=== PATIENT | female | born 1970 | race Two or more races ===

== ENCOUNTER 2020-07-08 10:33 | Outpatient (REF) | payer OTHER, SELFPAY ==
[2020-07-08 11:53] LABS: MANUAL DIFF FLAG NO
[2020-07-08 12:05] LABS: Basophils Percent Auto 0.5 % (0-2); Eosinophils Percent Auto 0.2 % (0-4); Hematocrit 38.7 % (37-47); Hemoglobin 12.7 g/dl (12.0-16.0); Imm Gran Abs Auto 0.02 X10*3/uL (0.00-0.03); Imm Gran Pct Auto 0.3 % (0.0-0.4); Lymphocytes Absolute Auto 1.9 X10*3/uL (1.2-4.9); Lymphocytes Percent Auto 31.2 % (20-40); Mean Corpuscular HGB Conc 32.8 g/dl (31.0-35.0); Mean Corpuscular Hemoglobin 28.9 pg (27.0-33.0); Mean Corpuscular Volume 88.2 fL (80-98); Mean Platelet Volume 11.5 fL (9.4-12.3); Monocytes Absolute Auto 0.5 X10*3/uL (0.1-1.2); Monocytes Percent Auto 8.7 % (2-11); Neutrophils Absolute Auto 3.6 X10*3/uL (2.0-8.3); Neutrophils Percent Auto 59.1 % (45-73); Platelet Count 285 X10*3/uL (160-400); Red Blood Count 4.39 X10*6/uL (4.20-5.50); Red Cell Distribution Width 13.3 % (11.0-16.0); White Blood Count 6.1 X10*3/uL (4.8-10.8)
[2020-07-08 12:44] LABS: Erythrocyte Sedimentation Rate 6 MM/HR (0-20)
[2020-07-08 12:54] LABS: Alanine Aminotransferase 15 U/L (0-31); Albumin Level 3.8 g/dL (3.5-5.0); Alkaline Phosphatase 56 U/L (39-117); Anion Gap 10 (12-20); Aspartate Amino Transferase 17 U/L (5-31); Bilirubin Total 0.5 mg/dL (0.0-1.0); Blood Urea Nitrogen 12 mg/dL (9-16); C Reactive Protein 0.04 mg/dL (< or = 0.50); Calcium 8.5 mg/dL (8.4-10.2); Carbon Dioxide 27 mmol/L (22-29); Chloride 108 mmol/L (96-108); Estimated Glomerular Filt Rate > 60; Glucose Random 89 mg/dL (60-115); Lipase 30 U/L (8-78); Potassium 3.9 mmol/l (3.3-5.1); Rheumatoid Factor < 15.0 IU/mL (<15.0); Sodium 141 mmol/L (135-145); Total Protein 6.1 g/dL (6.5-8.0)
[2020-07-09 22:01] LABS: Lyme Abs Screen <0.90 index
[2020-07-11 17:21] LABS: Anti Nuclear Antibody Screen POSITIVE (NEGATIVE)
== END 2020-07-08 10:34 | disposition home or self-care (01) ==
LOC: HO.LAB 10:33
PROVIDERS: PCP Internal Medicine; Visit Provider Internal Medicine
DX: M25.50 Pain in unspecified joint (principal); R10.12 Left upper quadrant pain; R76.8 Other specified abnormal immunological findings in serum; Z98.84 Bariatric surgery status
CPT/HCPCS: 36415; 80053; 83690; 85025; 85652; 86038; 86039; 86140; 86431; 86618

== ENCOUNTER 2020-07-13 16:14 | Outpatient (REF) | payer OTHER, SELFPAY ==
--- NOTE | 2020-07-13 | MM_ITS ---
EXAMINATION: MM SCREENING DIGITAL BREAST TOMOSYNTHESIS, BILATERAL CLINICAL INFORMATION: Screening. Asymptomatic. Family history breast cancer in maternal cousin. The lifetime risk of breast cancer based on the Tyrer-Cuzick Model is 9%. COMPARISON: None. Prior outside mammography currently unavailable. Radiology staff will attempt to retrieve prior outside exam to allow for comparison in an addendum report. TECHNIQUE: Digital breast tomosynthesis is performed in both the craniocaudal and mediolateral oblique views along with computer-aided detection (CAD). Synthesized 2D images are generated from the tomosynthesis. FINDINGS: There are scattered areas of fibroglandular density (ACR BI-RADS breast composition Category b). There are no significant masses, abnormal calcifications, or other abnormalities. The axilla and skin contours are unremarkable. IMPRESSION: No mammographic evidence of malignancy. ASSESSMENT: BI-RADS 1: Negative RECOMMENDATION: Routine annual mammography screening. This patient's information was entered into a reminder system with a target due date for their next mammogram.
== END 2020-07-13 16:15 | disposition home or self-care (01) ==
LOC: HO.MAMMO 16:14
PROVIDERS: Visit Provider Internal Medicine
DX: Z12.31 Encounter for screening mammogram for malignant neoplasm of breast (principal)
CPT/HCPCS: 77063; 77067; 78014

== ENCOUNTER → 2020-07-14 14:55 | Outpatient (BNVA) | payer OTHER, SELFPAY | PROVIDERS: PCP Internal Medicine; Referring Provider Internal Medicine; Visit Provider Surgery Vascular Surgery | DX: I83.11 Varicose veins of right lower extremity with inflammation (principal); I83.813 Varicose veins of bilateral lower extremities with pain; Z98.890 Other specified postprocedural states | CPT/HCPCS: 99213 ==

== ENCOUNTER 2020-12-26 12:25 | Emergency (ER) | payer OTHER, SELFPAY ==
--- NOTE | 2020-12-26 | ECG_ITS ---
Test Reason : CHEST PAIN Blood Pressure : / mmHG Vent. Rate : 061 BPM Atrial Rate : 061 BPM P-R Int : 146 ms QRS Dur : 080 ms QT Int : 382 ms P-R-T Axes : 042 023 027 degrees QTc Int : 384 ms Normal sinus rhythm with sinus arrhythmia Normal ECG No previous ECGs available Referred By: Generic ED Physician Electronically Signed By:TALON CORTES
--- NOTE | ~2020-12-26 | XR_ITS ---
EXAMINATION: XR CHEST CLINICAL INFORMATION: Chest pain COMPARISON: None TECHNIQUE: Frontal view of the chest was obtained. FINDINGS: The cardiac and mediastinal contours are normal. The lungs are clear. There is no pleural effusion or pneumothorax. There is mild curvature of the lower thoracic spine to the right. Bony structures are otherwise unremarkable. XR/XR chest 1V IMPRESSION: No evidence for acute disease in the chest.
[2020-12-26 12:58] VITALS: BP 160/82; BP 163/83; PULSE 53; RESP 14; TEMP 36.8; O2SAT 100; BMI 28.3
--- NOTE | 2020-12-26 13:20 | ED.CHESTPAIN ---
HPI - Chest Pain General Chief Complaint: Chest Pain Stated Complaint: SUDDEN CP @ WORK,CENTER OF CHEST TO BACK Time Seen by Provider: 12/26/20 12:52 Source: patient and EMS Mode of arrival: EMS Limitations: no limitations History of Present Illness HPI narrative: 50 y/o female with history of gastric bypass 3 years ago, prior DM, HLD, & HTN now off of all medications who presents to the ED with acute onset of sharp non-radiating substernal chest pain that started when she was at work about 1 hour ago. Pain was worse with deep inspiration and palpation. No nausea, vomiting, SOB, cough, fever, chills, N/V, abd pain, LE swelling. Patient was given aspirin by EMS and brought to the ER. On arrival to the ER patient's chest pain was resolved but it had moved to her back in between her shoulder blades. Reporting 6/10 pain, aching in nature. MD complaint: chest pain Onset (ago): hour(s) (1) Timing of current episode: now resolved Prior episodes: No Onset: during exertion Pain location: substernal Pain radiation: none Severity: moderate Pain scale (0-10): 6 Quality: tightness and sharp Relieving factors: rest Exacerbating factors: inspiration and palpation Treatment prior to arrival: aspirin Risk Factors Coronary artery disease risk factors: diabetes, hyperlipidemia and hypertension Thoracic aortic dissection risk factors: longstanding hypertension Related Data On Oral Contraceptives: No Home Medications Medication Instructions Recorded Confirmed albuterol sulfate 90 mcg/actuation 1 inh INHALATION QID 07/14/20 07/25/20 aerosol inhaler omeprazole 20 mg capsule,delayed 20 mg PO DAILY 07/14/20 07/25/20 release sucralfate 1 gram tablet 1 g PO QID 07/14/20 07/25/20 Allergies Allergy/AdvReac Type Severity Reaction Status Date / Time No Known Allergies Allergy Verified 07/25/20 01:33 [No Known Allergies*] Review of Systems Review of Systems: Constitutional: No Fever, No Chills ENT/Mouth: No sore throat, No Rhinorrhea, No Swallowing Difficulty Cardiovascular: + Chest Pain, No SOB, No Orthopnea, No Edema Respiratory: No Cough, No Sputum, No Wheezing, No dyspnea Gastrointestinal: No Nausea, No Vomiting, No Diarrhea, No abdominal Pain Genitourinary: No Dysuria, No Urinary Frequency, No Hematuria Musculoskeletal: No joint pain, + Myalgias Skin: No Skin Lesions, No rash Neuro: No Weakness, No Numbness, No Dizziness, No Headache Psych: + Anxiety/Panic, No Depression Heme/Lymph: No Bruising, No Lymphadenopathy Endocrine: No Polyuria, No Polydipsia PMFSH Past Medical History Medical History Abdominal pain ZHOU positive Overweight (BMI 25.0-29.9) Varicose veins of bilateral lower extremities with pain Surgical History (Updated 07/25/20 @ 01:36 by Ronny Lan MD) H/O gastric bypass (~2017) H/O tubal ligation Hx of cholecystectomy (~2014) Status post laser ablation of incompetent vein Family History Family History (Updated 07/25/20 @ 01:37 by Ronny Lan MD) Father HTN (hypertension) Diabetes mellitus Mother HTN (hypertension) Diabetes mellitus Asthma Brother No problems noted. Brother No problems noted. Brother No problems noted. Brother No problems noted. Sister No problems noted. Daughter No problems noted. Son No problems noted. Son No problems noted. Social History Social History Smoking Status: Never smoker Advance Directives: No Advance Directives Information Provided: Yes Physical Exam Vital Signs: Vital Signs: Last Vital Signs Temp 98.3 F 12/26/20 16:24 Pulse 74 12/26/20 16:24 Resp 16 12/26/20 16:24 BP 156/75 H 12/26/20 16:24 Pulse Ox 99 12/26/20 16:24 Body Mass Index 28.3 Appearance: Alert. Oriented X3. No acute distress. Eyes: Pupils equal, round and reactive to light. ENT: Pharynx normal. Neck: Normal inspection. Neck supple. CVS: Normal heart rate and rhythm. Pulses normal. Respiratory: No respiratory distress. Breath sounds normal. Abdomen: Soft and nontender. +BS x4 Back: tender in thoracic area between scapulas with muscle spasm Skin: Skin warm and dry. Normal skin color. Normal skin turgor. No rashes. Extremities: No lower extremity edema. Negative Danish's sign Neuro: Oriented X 3. No motor deficit. No sensory deficit. Course Course Course Narrative: 50 y/o female with history of prior DM, HTN, & HLD now off all medications 3 years after gastric bypass who presents with acute onset of chest pain that migrated to her middle back. Will need to rule out ACS, PE and dissection. She is hemodynamically stable with HR 60's and SBP 160's. EKG did not show any ST segment elevations. Pulses are equal. Will get lab workup including troponin, DDIMER, CXR to start. Reassuring examination with muscular tenderness and spasm in her back. Will reassess after treatment with Tylenol and Lidoderm. Reevaluation(s) Reevaluation #1: Pain is improved but remains achy in her back, now lower back. Slightly tender. Lidoderm helping. Her workup is negative so far. Will plan to repeat troponin in 3 hours given her chest pain was acute onset today. She remains chest pain free here. Reevaluation #2: Patient continues to not have any chest pain here. Motrin helped back pain. Repeat troponin pending. If remains negative she will be stable for discharge home with plans to f/u with PCP. MDM - Chest Pain Medical Records Data Attestation: I reviewed the patient's medical records. Lab Data Attestation: I reviewed the patient's lab results. Result diagrams: 12/26/20 13:32 12/26/20 13:32 Labs: Lab Results 12/26/20 12/26/20 12/26/20 Range/Units 13:31 13:31 13:32 WBC 8.1 (4.8-10.8) X10*3/uL RBC 4.21 (4.20-5.50) X10*6/uL Hgb 11.4 L (12.0-16.0) g/dl Hct 35.6 L (37-47) % MCV 84.6 (80-98) fL MCH 27.1 (27.0-33.0) pg MCHC 32.0 (31.0-35.0) g/dl RDW 15.0 (11.0-16.0) % Plt Count 268 (160-400) X10*3/uL MPV 10.3 (9.4-12.3) fL Immature Gran % (Auto) 0.1 (0.0-0.4) % Neut % (Auto) 65.8 (45-73) % Lymph % (Auto) 26.2 (20-40) % [place] % (Auto) 7.4 (2-11) % Eos % (Auto) 0.1 (0-4) % Baso % (Auto) 0.4 (0-2) % Lymph # (Auto) 2.1 (1.2-4.9) X10*3/uL [place] # (Auto) 0.6 (0.1-1.2) X10*3/uL Eos # (Auto) 0.0 (0.0-0.4) X10*3/uL Baso # (Auto) 0.0 (0.0-0.2) X10*3/uL Abs Immat Gran (auto) 0.01 (0.00-0.03) X10*3/uL Absolute Neuts (auto) 5.4 (2.0-8.3) X10*3/uL Absolute Nucleated RBC 0.000 (0.0-0.012) X10*3/uL Nucleated RBC % (auto) 0.0 (0.0-0.2) /100WBC D-Dimer NG/ML Hold Blue Top Sodium (135-145) mmol/L Potassium (3.3-5.1) mmol/L Chloride (96-108) mmol/L Carbon Dioxide (22-29) mmol/L Anion Gap (12-20) BUN (9-16) mg/dL Creatinine (0.5-1.4) mg/dL Estim Creat Clear Calc Estimated GFR Random Glucose (60-115) mg/dL Calcium (8.4-10.2) mg/dL Magnesium (1.6-2.6) mg/dL Total Bilirubin (0.0-1.0) mg/dL Direct Bilirubin (0.0-0.5) mg/dL AST (5-31) U/L ALT (0-31) U/L Alkaline Phosphatase (39-117) U/L Troponin I High Sens (<3.5-17.0) ng/L B-Natriuretic Peptide (<100) pg/mL Total Protein (6.5-8.0) g/dL Albumin (3.5-5.0) g/dL Urine Color YELLOW Urine Appearance CLEAR Urine pH 6.5 (5.0-8.0) Ur Specific [place] 1.025 (1.005-1.025) Urine Protein NEG (NEG-TRACE) MG/DL Urine Glucose (UA) NEG (NEG) MG/DL Urine Ketones NEG (NEG) MG/DL Urine Blood NEG (NEG) Urine Nitrite NEG (NEG) Ur Leukocyte Esterase TRACE H (NEG) Urine RBC 0-2 (0) /HPF Urine WBC 1-4 (0-4) /HPF Ur Squamous Epith Cells 1+ /LPF Urine Bacteria TRACE /LPF Urine Mucus TRACE /LPF Urine Test NEGATIVE (NEGATIVE) 12/26/20 12/26/20 12/26/20 Range/Units 13:32 13:32 13:32 WBC (4.8-10.8) X10*3/uL RBC (4.20-5.50) X10*6/uL Hgb (12.0-16.0) g/dl Hct (37-47) % MCV (80-98) fL MCH (27.0-33.0) pg MCHC (31.0-35.0) g/dl RDW (11.0-16.0) % Plt Count (160-400) X10*3/uL MPV (9.4-12.3) fL Immature Gran % (Auto) (0.0-0.4) % Neut % (Auto) (45-73) % Lymph % (Auto) (20-40) % [place] % (Auto) (2-11) % Eos % (Auto) (0-4) % Baso % (Auto) (0-2) % Lymph # (Auto) (1.2-4.9) X10*3/uL [place] # (Auto) (0.1-1.2) X10*3/uL Eos # (Auto) (0.0-0.4) X10*3/uL Baso # (Auto) (0.0-0.2) X10*3/uL Abs Immat Gran (auto) (0.00-0.03) X10*3/uL Absolute Neuts (auto) (2.0-8.3) X10*3/uL Absolute Nucleated RBC (0.0-0.012) X10*3/uL Nucleated RBC % (auto) (0.0-0.2) /100WBC D-Dimer < 200 NG/ML Hold Blue Top SEE NOTE Sodium 139 (135-145) mmol/L Potassium 4.3 (3.3-5.1) mmol/L Chloride 107 (96-108) mmol/L Carbon Dioxide 24 (22-29) mmol/L Anion Gap 12 (12-20) BUN 17 H (9-16) mg/dL Creatinine 0.64 (0.5-1.4) mg/dL Estim Creat Clear Calc 94.8 Estimated GFR > 60 Random Glucose 89 (60-115) mg/dL Calcium 8.6 (8.4-10.2) mg/dL Magnesium 1.9 (1.6-2.6) mg/dL Total Bilirubin 0.4 (0.0-1.0) mg/dL Direct Bilirubin 0.2 (0.0-0.5) mg/dL AST 18 (5-31) U/L ALT 11 (0-31) U/L Alkaline Phosphatase 56 (39-117) U/L Troponin I High Sens < 3.5 (<3.5-17.0) ng/L B-Natriuretic Peptide 24 (<100) pg/mL Total Protein 6.0 L (6.5-8.0) g/dL Albumin 3.6 (3.5-5.0) g/dL Urine Color Urine Appearance Urine pH (5.0-8.0) Ur Specific [place] (1.005-1.025) Urine Protein (NEG-TRACE) MG/DL Urine Glucose (UA) (NEG) MG/DL Urine Ketones (NEG) MG/DL Urine Blood (NEG) Urine Nitrite (NEG) Ur Leukocyte Esterase (NEG) Urine RBC (0) /HPF Urine WBC (0-4) /HPF Ur Squamous Epith Cells /LPF Urine Bacteria /LPF Urine Mucus /LPF Urine Test (NEGATIVE) ECG Data ECG #1: Attestation: I personally reviewed and interpreted this ECG as follows: ECG interpretation date: 12/26/20 ECG interpretation time: 13:30 Prior ECG tracings: not available for review Interpretation: normal sinus rhythm with sinus arrythmia, HR 61 bpm, normal HI interval, normal QTC, isolated T-wave inversion in lead III Scores Heart Score History: -2- highly suspicious ECG: -0- normal Age: -0- < or = 45 Risk factory: -1- 1 or 2 risk factors Troponin: -0- < or = normal limit Score: 3 Risk: 1.7% Discharge Plan Discharge Clinical Impression: Atypical chest pain Instructions: Chest Pain (ED), Thoracic Pain (ED) Additional Instructions: You lab workup today in the Emergency Department was unremarkable. It is very unlikely that your chest pain is due to any life threatening cause. Recommend following up with your doctor this week. T Take Tylenol and/or Motrin as needed for pain. No heavy lifting. Limit bending and twisting motions. Use ice and/or heat to your back as needed. If you have recurrence of chest pain or any other concerning symptom come back to the ER for further evaluation. Prescriptions: No Action sucralfate 1 gram tablet 1 g PO QID RF: 0 omeprazole 20 mg capsule,delayed release(DR/EC) 20 mg PO DAILY RF: 0 albuterol sulfate [ProAir HFA] 90 mcg/actuation HFA aerosol inhaler 1 inh inhalation QID RF: 0
[2020-12-26] MEDS: Acetaminophen 325 MG TABLET 975 MG PO (13:34)
[2020-12-26] MEDS: Lidocaine 4 % Patch ADH..PATCH 1 PATCH TRANSDERMA (13:34)
[2020-12-26 13:43] LABS: MANUAL DIFF FLAG NO
[2020-12-26 13:45] LABS: Basophils Percent Auto 0.4 % (0-2); Eosinophils Percent Auto 0.1 % (0-4); Hematocrit 35.6 % (37-47); Hemoglobin 11.4 g/dl (12.0-16.0); Imm Gran Abs Auto 0.01 X10*3/uL (0.00-0.03); Imm Gran Pct Auto 0.1 % (0.0-0.4); Lymphocytes Absolute Auto 2.1 X10*3/uL (1.2-4.9); Lymphocytes Percent Auto 26.2 % (20-40); Mean Corpuscular Hemoglobin 27.1 pg (27.0-33.0); Mean Corpuscular Volume 84.6 fL (80-98); Mean Platelet Volume 10.3 fL (9.4-12.3); Monocytes Absolute Auto 0.6 X10*3/uL (0.1-1.2); Monocytes Percent Auto 7.4 % (2-11); Neutrophils Absolute Auto 5.4 X10*3/uL (2.0-8.3); Neutrophils Percent Auto 65.8 % (45-73); Platelet Count 268 X10*3/uL (160-400); Red Blood Count 4.21 X10*6/uL (4.20-5.50); White Blood Count 8.1 X10*3/uL (4.8-10.8)
[2020-12-26 13:48] LABS: Glucose Urine UA NEG (NEG); Leukocyte Esterase Urine TRACE (NEG); Nitrite Urine NEG (NEG); PH 6.5 (5.0-8.0); Specific Gravity - Urine 1.025 (1.005-1.025); UACC Culture Trigger YES; Urine Blood NEG (NEG); Urine Ketones NEG (NEG); Urine Protein NEG (NEG-TRACE)
[2020-12-26 13:50] LABS: Appearance Urine CLEAR; Color Urine YELLOW
[2020-12-26 13:51] LABS: UPreg QC Valid YES; Urine Pregnancy NEGATIVE (NEGATIVE)
[2020-12-26 13:58] LABS: Bacteria Urine TRACE /LPF; Mucus Urine TRACE /LPF; RBC Urine 0-2 /HPF (0); Squamous Epithelial Cell Urine 1+ /LPF
[2020-12-26 14:00] LABS: D Dimer < 200 NG/ML
[2020-12-26 14:09] LABS: Alanine Aminotransferase 11 U/L (0-31); Albumin Level 3.6 g/dL (3.5-5.0); Alkaline Phosphatase 56 U/L (39-117); Anion Gap 12 (12-20); Aspartate Amino Transferase 18 U/L (5-31); Bilirubin Direct 0.2 mg/dL (0.0-0.5); Bilirubin Total 0.4 mg/dL (0.0-1.0); Blood Urea Nitrogen 17 mg/dL (9-16); Calcium 8.6 mg/dL (8.4-10.2); Carbon Dioxide 24 mmol/L (22-29); Chloride 107 mmol/L (96-108); Creatinine Clr Calc Pharmacy 94.8; Estimated Glomerular Filt Rate > 60; Glucose Random 89 mg/dL (60-115); Magnesium 1.9 mg/dL (1.6-2.6); Potassium 4.3 mmol/L (3.3-5.1); Sodium 139 mmol/L (135-145)
[2020-12-26 14:11] LABS: B Type Natriuretic Peptide 24 pg/mL (<100); Troponin-I High Sensitivity < 3.5 ng/L (<3.5-17.0)
[2020-12-26] MEDS: Ibuprofen 600 MG TABLET PO (14:56)
[2020-12-26 14:57] VITALS: BP 148/83; PULSE 60; RESP 16; O2SAT 98
[2020-12-26 16:24] VITALS: BP 156/75; PULSE 74; RESP 16; TEMP 36.8; O2SAT 99
--- NOTE | 2020-12-26 16:29 | PC.NURSE ---
Pt denies pain, to have Trop redrawn at 4:30. Aware of plan, resting comfortably
[2020-12-26 17:12] LABS: Troponin-I High Sensitivity 4.1 ng/L (<3.5-17.0)
== END 2020-12-26 19:06 | disposition home or self-care (01) ==
PROVIDERS: Physician Assistant; Emergency Provider Emergency Medicine; PCP Internal Medicine
DX: R07.89 Other chest pain (principal)
CPT/HCPCS: 36415; 71045; 80048; 80076; 81001; 81003; 81025; 83735; 83880; 84484; 85025; 85379; 87086; 87147; 93005; 99283; 99284

== ENCOUNTER 2021-01-19 15:03 | Outpatient (REF) | payer OTHER, SELFPAY ==
[2021-01-19 15:59] LABS: MANUAL DIFF FLAG NO
[2021-01-19 16:00] LABS: Glucose Urine UA NEG (NEG); Leukocyte Esterase Urine 1+ (NEG); Nitrite Urine NEG (NEG); PH 5.5 (5.0-8.0); Specific Gravity - Urine >= 1.030 (1.005-1.025); Urine Blood NEG (NEG); Urine Ketones NEG (NEG); Urine Protein NEG (NEG-TRACE)
[2021-01-19 16:01] LABS: Basophils Percent Auto 0.4 % (0-2); Eosinophils Percent Auto 0.3 % (0-4); Hematocrit 36.8 % (37-47); Hemoglobin 11.6 g/dl (12.0-16.0); Imm Gran Abs Auto 0.02 X10*3/uL (0.00-0.03); Imm Gran Pct Auto 0.3 % (0.0-0.4); Lymphocytes Absolute Auto 2.2 X10*3/uL (1.2-4.9); Lymphocytes Percent Auto 31.1 % (20-40); Mean Corpuscular HGB Conc 31.5 g/dl (31.0-35.0); Mean Corpuscular Hemoglobin 27.2 pg (27.0-33.0); Mean Corpuscular Volume 86.2 fL (80-98); Mean Platelet Volume 10.2 fL (9.4-12.3); Monocytes Absolute Auto 0.5 X10*3/uL (0.1-1.2); Monocytes Percent Auto 7.4 % (2-11); Neutrophils Absolute Auto 4.3 X10*3/uL (2.0-8.3); Neutrophils Percent Auto 60.5 % (45-73); Platelet Count 290 X10*3/uL (160-400); Red Blood Count 4.27 X10*6/uL (4.20-5.50); White Blood Count 7.1 X10*3/uL (4.8-10.8)
[2021-01-19 16:04] LABS: Appearance Urine HAZY; Color Urine YELLOW
[2021-01-19 16:09] LABS: Bacteria Urine TRACE /LPF; RBC Urine 0 /HPF (0); Squamous Epithelial Cell Urine 1+ /LPF
[2021-01-19 16:23] LABS: Alanine Aminotransferase 14 U/L (0-31); Alkaline Phosphatase 66 U/L (39-117); Anion Gap 10 (12-20); Aspartate Amino Transferase 18 U/L (5-31); Bilirubin Total 0.4 mg/dL (0.0-1.0); Blood Urea Nitrogen 18 mg/dL (9-16); C Reactive Protein 0.04 mg/dL (< or = 0.50); Calcium 9.1 mg/dL (8.4-10.2); Carbon Dioxide 27 mmol/L (22-29); Chloride 109 mmol/L (96-108); Estimated Glomerular Filt Rate > 60; Glucose Random 89 mg/dL (60-115); Potassium 4.3 mmol/L (3.3-5.1); Sodium 142 mmol/L (135-145); Total Protein 6.5 g/dL (6.5-8.0)
[2021-01-19 16:46] LABS: Thyroid Stimulating Hormone 0.86 uIU/mL (0.32-4.0)
[2021-01-19 17:30] LABS: Erythrocyte Sedimentation Rate 6 MM/HR (0-20)
[2021-01-20 13:12] LABS: Anti DNA DS Antibody <1 IU/mL; Antibody to SS-A Antigen <1.0 NEG AI (<1.0 NEG); Antibody to SS-B Antigen <1.0 NEG AI (<1.0 NEG); Scleroderma 70 Antibody <1.0 NEG AI (<1.0 NEG)
[2021-01-20 14:51] LABS: Thyroid Peroxidase Antibodies 1 IU/mL (<9)
[2021-01-21 01:12] LABS: Thyroglobulin Antibodies <1 IU/mL (< or = 1)
[2021-01-21 07:36] LABS: Complement C3 85 mg/dL (83-193)
== END 2021-01-19 15:04 | disposition home or self-care (01) ==
LOC: HO.LAB 15:03
PROVIDERS: PCP Internal Medicine; Visit Provider Student in an Organized Health Care Education/Training Program
DX: R76.8 Other specified abnormal immunological findings in serum (principal)
CPT/HCPCS: 36415; 80053; 81001; 84443; 85025; 85652; 86140; 86160; 86225; 86235; 86376; 86800; 99202

== ENCOUNTER → 2021-02-08 15:48 | Outpatient (BNVA) | payer OTHER, SELFPAY | PROVIDERS: PCP Internal Medicine; Visit Provider Student in an Organized Health Care Education/Training Program | DX: R76.8 Other specified abnormal immunological findings in serum (principal) | CPT/HCPCS: 99212 ==

== ENCOUNTER → 2021-04-20 14:53 | Outpatient (BNVA) | payer OTHER, SELFPAY | PROVIDERS: Visit Provider Surgery Vascular Surgery | DX: M79.604 Pain in right leg (principal); M79.605 Pain in left leg | CPT/HCPCS: 99212 ==

== ENCOUNTER 2021-08-02 09:00 | Emergency (ER) | payer OTHER, SELFPAY ==
[2021-08-02 09:10] VITALS: BP 138/67; BP 176/106; PULSE 60; PULSE 72; RESP 18; TEMP 37.2; O2SAT 100; BMI 25.4
--- NOTE | 2021-08-02 09:26 | ECG_ITS ---
Test Reason : ABDOMINAL PAIN Blood Pressure : / mmHG Vent. Rate : 050 BPM Atrial Rate : 050 BPM P-R Int : 152 ms QRS Dur : 084 ms QT Int : 426 ms P-R-T Axes : 050 035 032 degrees QTc Int : 388 ms Sinus bradycardia Otherwise normal ECG Heart rate has decreased Referred By: Freddy Bhakta Electronically Signed By:SHAYY VIGIL MD
--- NOTE | 2021-08-02 09:28 | ED_ITS ---
HPI - Abdominal Pain General Chief Complaint: Abdominal Pain Stated Complaint: ABD PAIN SINCE THIS AM Time Seen by Provider: 08/02/21 09:26 Source: patient and EMS Mode of arrival: EMS Limitations: no limitations History of Present Illness HPI narrative: 51-year-old female came in for evaluation of epigastric pain and vomiting. Started this morning at 06:00 while patient getting ready to go to work, pain felt like a burning/sharp to the epigastric area, localized to the epigastric area, no radiation, pain is constant since morning after she vomited, started after she drink coffee, did not try food yet, nothing to relieve the pain, patient gets that pain sporadically every now and then. Patient with past history of sleeve gastrectomy and cholecystectomy. No dysuria, no frequency urination, no fever, chills. Related Data Previous Rx's Medication Instructions Recorded albuterol sulfate 90 mcg/actuation 1 inh INHALATION QID PRN 30 Days 02/07/21 aerosol inhaler (ProAir HFA) #8.5 g omeprazole 20 mg capsule,delayed 20 mg PO DAILY 90 Days #90 cap 02/07/21 release cefuroxime axetil 500 mg tablet 500 mg PO BID #14 tab 08/02/21 omeprazole magnesium 20 mg 20 mg PO BID #60 tab 08/02/21 tablet,delayed release (Prilosec OTC) Allergies Allergy/AdvReac Type Severity Reaction Status Date / Time No Known Allergies Allergy Verified 04/20/21 14:57 [No Known Allergies*] Review of Systems Review of Systems All other systems are reviewed and are negative Constitutional: Reports as per HPI and Reports no additional constitutional complaints Eyes: Reports as per HPI and Reports no additional eye complaints Reports system reviewed and no additional complaints, except as documented Cardiovascular: Reports as per HPI and Reports no additional cardiovascular complaints Respiratory: Reports as per HPI and Reports no additional respiratory complaints Gastrointestinal: Reports as per HPI and Reports no additional gastrointestinal complaints Genitourinary: Reports no additional female genitourinary complaints Musculoskeletal: Reports no additional musculoskeletal complaints Skin/Breast: Reports system reviewed and no additional complaints, except as docu Psychiatric: Reports no additional psychiatric complaints Endocrine: Reports no additional endocrine complaints Hematologic/Lymphatic: Reports no additional hematologic/lymphatic complaints Allergic/Immunologic: Reports no additional allergic/immunologic complaints Reports system reviewed and no additional complaints, except as documented and Reports Abnormal speech present. Physical Exam Vital Signs: Vital Signs: Last Vital Signs Temp 98.9 F 08/02/21 09:10 Pulse 54 08/02/21 11:14 Resp 18 08/02/21 11:14 BP 136/70 08/02/21 11:14 Pulse Ox 100 08/02/21 11:14 Body Mass Index 25.4 Vital signs have been reviewed as appeared to be correct. Blood pressure normal. Heart rate normal. Respiration rate normal. Temperature normal. Oxygen saturation normal. Appearance: Alert. Oriented X3. No acute distress. Head: Normal external exam. Normocephalic. Atraumatic. No Byrne signs noted. No raccoon eyes noted Eyes: PERRLA. EOMI. Conjunctiva and sclera normal. Eyelids normal. ENT: TM's Normal. Pharynx normal. Uvula midline. Moist mucous membranes. No trismus noted. No drooling noted. No muffled voice noted. Neck: Normal inspection. Neck supple. FROM. No adenopathy. Thyroid Normal. No meningeal signs. No neck mass noted. CVS: Normal heart rate and rhythm. Heart sound normal. No murmurs noted. Pulses normal throughout. Respiratory: No respiratory distress. Painless inspiration. Breath sounds normal. No wheezes/rales/rhonchi noted. Chest nontender. No accessory muscle usage noted or decreased air movement noted. Abdomen: Soft, mild tenderness in the epigastric area, no guarding, no rebound tenderness. Bowel sounds normal in all 4 quadrants. No distention noted. No organomegaly noted. No visible injury noted. Back: No CVA tenderness. Full range of motion noted. Skin: Skin warm and dry. Normal skin color. Normal skin turgor. No rashes/lesi ons/lacerations noted. Extremities: No lower extremity edema. Extremities exhibit normal range of motion. Extremities nontender. Neuro: Oriented X 3. Cranial nerve exam: II-XII are grossly intact No motor deficit. No sensory deficit. Reflexes normal. Course Course Course Narrative: Assessment and plan. 51-year-old female came in with epigastric pain and nausea, and vomiting. Patient received IV hydration and PPI/anti emetic, patient feels better, able to tolerate p.o. challenge in the emergency department. Patient still complaining of very mild epigastric pain with food. Patient status post cholecystectomy, and sleeve gastrectomy. Patient also been complaining of frequency urination. And the UA is consistent with UTI. MDM - Abdominal Pain Medical Records Attestation: I reviewed the patient's medical records. Lab Data Attestation: I reviewed the patient's lab results. Result diagrams: 08/02/21 10:03 08/02/21 10:03 Labs: Lab Results 08/02/21 08/02/21 08/02/21 Range/Units 10:03 10:03 10:03 WBC 7.5 (4.8-10.8) X10*3/uL RBC 4.10 L (4.20-5.50) X10*6/uL Hgb 10.4 L (12.0-16.0) g/dl Hct 33.1 L (37-47) % MCV 80.7 (80-98) fL MCH 25.4 L (27.0-33.0) pg MCHC 31.4 (31.0-35.0) g/dl RDW 14.9 (11.0-16.0) % Plt Count 236 (160-400) X10*3/uL MPV 10.6 (9.4-12.3) fL Immature Gran % (Auto) 0.3 (0.0-0.4) % Neut % (Auto) 67.2 (45-73) % Lymph % (Auto) 25.2 (20-40) % [place] % (Auto) 6.9 (2-11) % Eos % (Auto) 0.1 (0-4) % Baso % (Auto) 0.3 (0-2) % Lymph # (Auto) 1.9 (1.2-4.9) X10*3/uL [place] # (Auto) 0.5 (0.1-1.2) X10*3/uL Eos # (Auto) 0.0 (0.0-0.4) X10*3/uL Baso # (Auto) 0.0 (0.0-0.2) X10*3/uL Abs Immat Gran (auto) 0.02 (0.00-0.03) X10*3/uL Absolute Neuts (auto) 5.0 (2.0-8.3) X10*3/uL Absolute Nucleated RBC 0.000 (0.0-0.012) X10*3/uL Nucleated RBC % (auto) 0.0 (0.0-0.2) /100WBC Sodium 140 (135-145) mmol/L Potassium 3.8 (3.3-5.1) mmol/L Chloride 108 (96-108) mmol/L Carbon Dioxide 26 (22-29) mmol/L Anion Gap 10 L (12-20) BUN 12 (9-16) mg/dL Creatinine 0.70 (0.5-1.4) mg/dL Estim Creat Clear Calc 81.6 Estimated GFR > 60 Random Glucose 92 (60-115) mg/dL Calcium 8.4 D (8.4-10.2) mg/dL Total Bilirubin 0.5 (0.0-1.0) mg/dL Direct Bilirubin 0.2 (0.0-0.5) mg/dL AST 19 (5-31) U/L ALT 12 (0-31) U/L Alkaline Phosphatase 60 (39-117) U/L Troponin I High Sens < 3.5 (<3.5-17.0) ng/L Total Protein 6.1 L (6.5-8.0) g/dL Albumin 3.7 (3.5-5.0) g/dL Lipase 44 (8-78) U/L Urine Color Urine Appearance Urine pH (5.0-8.0) Ur Specific [place] (1.005-1.025) Urine Protein (NEG-TRACE) MG/DL Urine Glucose (UA) (NEG) MG/DL Urine Ketones (NEG) MG/DL Urine Blood (NEG) Urine Nitrite (NEG) Ur Leukocyte Esterase (NEG) Urine RBC (0) /HPF Urine WBC (0-4) /HPF Ur Squamous Epith Cells /LPF Urine Bacteria /LPF Urine Test (NEGATIVE) 08/02/21 08/02/21 Range/Units 11:25 11:26 WBC (4.8-10.8) X10*3/uL RBC (4.20-5.50) X10*6/uL Hgb (12.0-16.0) g/dl Hct (37-47) % MCV (80-98) fL MCH (27.0-33.0) pg MCHC (31.0-35.0) g/dl RDW (11.0-16.0) % Plt Count (160-400) X10*3/uL MPV (9.4-12.3) fL Immature Gran % (Auto) (0.0-0.4) % Neut % (Auto) (45-73) % Lymph % (Auto) (20-40) % [place] % (Auto) (2-11) % Eos % (Auto) (0-4) % Baso % (Auto) (0-2) % Lymph # (Auto) (1.2-4.9) X10*3/uL [place] # (Auto) (0.1-1.2) X10*3/uL Eos # (Auto) (0.0-0.4) X10*3/uL Baso # (Auto) (0.0-0.2) X10*3/uL Abs Immat Gran (auto) (0.00-0.03) X10*3/uL Absolute Neuts (auto) (2.0-8.3) X10*3/uL Absolute Nucleated RBC (0.0-0.012) X10*3/uL Nucleated RBC % (auto) (0.0-0.2) /100WBC Sodium (135-145) mmol/L Potassium (3.3-5.1) mmol/L Chloride (96-108) mmol/L Carbon Dioxide (22-29) mmol/L Anion Gap (12-20) BUN (9-16) mg/dL Creatinine (0.5-1.4) mg/dL Estim Creat Clear Calc Estimated GFR Random Glucose (60-115) mg/dL Calcium (8.4-10.2) mg/dL Total Bilirubin (0.0-1.0) mg/dL Direct Bilirubin (0.0-0.5) mg/dL AST (5-31) U/L ALT (0-31) U/L Alkaline Phosphatase (39-117) U/L Troponin I High Sens (<3.5-17.0) ng/L Total Protein (6.5-8.0) g/dL Albumin (3.5-5.0) g/dL Lipase (8-78) U/L Urine Color YELLOW Urine Appearance HAZY Urine pH 7.0 (5.0-8.0) Ur Specific [place] 1.015 (1.005-1.025) Urine Protein TRACE (NEG-TRACE) MG/DL Urine Glucose (UA) NEG (NEG) MG/DL Urine Ketones NEG (NEG) MG/DL Urine Blood NEG (NEG) Urine Nitrite NEG (NEG) Ur Leukocyte Esterase 2+ H (NEG) Urine RBC 1-4 (0) /HPF Urine WBC 50-75 H (0-4) /HPF Ur Squamous Epith Cells 1+ /LPF Urine Bacteria 1+ /LPF Urine Test NEGATIVE (NEGATIVE) ECG Data Attestation: I personally reviewed and interpreted this ECG as follows: Interpretation: Sinus bradycardia at 50 beats per minutes, normal axis deviation, normal intervals, no ST-T changes. Discharge Plan Discharge Clinical Impression: Abdominal pain Qualifiers: Abdominal location: epigastric Qualified Code(s): R10.13 - Epigastric pain UTI (urinary tract infection) Qualifiers: Urinary tract infection type: acute cystitis Hematuria presence: without hematuria Qualified Code(s): N30.00 - Acute cystitis without hematuria Patient Disposition: Home, Self-Care Instructions: Abdominal Pain (ED) Prescriptions: New cefuroxime axetil 500 mg tablet 500 mg PO BID Qty: 14 RF: 0 omeprazole magnesium [Prilosec OTC] 20 mg tablet,delayed release (DR/EC) 20 mg PO BID Qty: 60 RF: 0 No Action albuterol sulfate [ProAir HFA] 90 mcg/actuation HFA aerosol inhaler 1 inh inhalation QID PRN (Reason: shortness of breath or wheezing) 30 Days Qty: 8.5 RF: 5 omeprazole 20 mg capsule,delayed release(DR/EC) 20 mg PO DAILY 90 Days Qty: 90 RF: 3 Referrals: Ronny Lan MD [Primary Care Provider] - 2 days [facility] Past Medical History Medical History Abdominal pain ZHOU positive Left sided abdominal pain Overweight (BMI 25.0-29.9) Varicose veins of bilateral lower extremities with pain Surgical History H/O gastric bypass (~2017) H/O tubal ligation Hx of cholecystectomy (~2014) Status post laser ablation of incompetent vein Family History Family History Father HTN (hypertension) Diabetes mellitus Mother HTN (hypertension) Diabetes mellitus Asthma Brother No problems noted. Brother No problems noted. Brother No problems noted. Brother No problems noted. Sister No problems noted. Daughter No problems noted. Son No problems noted. Son No problems noted. Social History Social History Household Members: Other Housing: Apartment Alcohol intake: current Alcohol intake frequency: holidays/special occasions only Alcohol type: wine Patient Tobacco Use Status: Never used Tobacco Use of substances other than those prescribed or required for medical reasons: No Advance Directives: No Advance Directives Information Provided: No
[2021-08-02 10:06] LABS: MANUAL DIFF FLAG NO
[2021-08-02] MEDS: ondansetron HCL 4 MG/2 ML VIAL IVPUSH (10:09)
[2021-08-02] MEDS: 0.9 % Sodium Chloride 1,000 ML 999 ML IVCONT (10:09)
[2021-08-02] MEDS: Famotidine/PF 20 MG/2 ML VIAL IVPUSH ×2 (10:09→12:44)
[2021-08-02] MEDS: Magnesium Hydrox/Alum Hydrox 30 ML ORAL.SUSP PO (10:09)
[2021-08-02 10:10] LABS: Basophils Percent Auto 0.3 % (0-2); Eosinophils Percent Auto 0.1 % (0-4); Hematocrit 33.1 % (37-47); Hemoglobin 10.4 g/dl (12.0-16.0); Imm Gran Abs Auto 0.02 X10*3/uL (0.00-0.03); Imm Gran Pct Auto 0.3 % (0.0-0.4); Lymphocytes Absolute Auto 1.9 X10*3/uL (1.2-4.9); Lymphocytes Percent Auto 25.2 % (20-40); Mean Corpuscular HGB Conc 31.4 g/dl (31.0-35.0); Mean Corpuscular Hemoglobin 25.4 pg (27.0-33.0); Mean Corpuscular Volume 80.7 fL (80-98); Mean Platelet Volume 10.6 fL (9.4-12.3); Monocytes Absolute Auto 0.5 X10*3/uL (0.1-1.2); Monocytes Percent Auto 6.9 % (2-11); Neutrophils Percent Auto 67.2 % (45-73); Platelet Count 236 X10*3/uL (160-400); Red Cell Distribution Width 14.9 % (11.0-16.0); White Blood Count 7.5 X10*3/uL (4.8-10.8)
[2021-08-02 10:14] VITALS: BP 154/79; PULSE 44; RESP 18; O2SAT 100
--- NOTE | 2021-08-02 10:15 | PC.NURSE ---
pt alert and oriented, skin appropriate for ethnicity, respirations even and unlabored, pt reports epigasctric pain that started at 0630, one episode of vomiting sinus jamil on the monitor, vs stable
[2021-08-02 10:32] LABS: Alanine Aminotransferase 12 U/L (0-31); Albumin Level 3.7 g/dL (3.5-5.0); Alkaline Phosphatase 60 U/L (39-117); Anion Gap 10 (12-20); Aspartate Amino Transferase 19 U/L (5-31); Bilirubin Direct 0.2 mg/dL (0.0-0.5); Bilirubin Total 0.5 mg/dL (0.0-1.0); Blood Urea Nitrogen 12 mg/dL (9-16); Calcium 8.4 mg/dL (8.4-10.2); Carbon Dioxide 26 mmol/L (22-29); Chloride 108 mmol/L (96-108); Creatinine Clr Calc Pharmacy 81.6; Estimated Glomerular Filt Rate > 60; Glucose Random 92 mg/dL (60-115); Lipase 44 U/L (8-78); Potassium 3.8 mmol/L (3.3-5.1); Sodium 140 mmol/L (135-145); Total Protein 6.1 g/dL (6.5-8.0)
[2021-08-02 10:35] LABS: Troponin-I High Sensitivity < 3.5 ng/L (<3.5-17.0)
--- NOTE | 2021-08-02 11:13 | PC.NURSE ---
pt reports feeling a little better after the medication, pain at 7/10, no vomiting in the ed, vs stable
[2021-08-02 11:14] VITALS: BP 136/70; PULSE 54; RESP 18; O2SAT 100
[2021-08-02 11:34] LABS: Appearance Urine HAZY; Color Urine YELLOW; Glucose Urine UA NEG (NEG); Leukocyte Esterase Urine 2+ (NEG); Nitrite Urine NEG (NEG); Specific Gravity - Urine 1.015 (1.005-1.025); UACC Culture Trigger YES; Urine Blood NEG (NEG); Urine Ketones NEG (NEG); Urine Protein TRACE MG/DL (NEG-TRACE)
[2021-08-02 11:37] LABS: UPreg QC Valid YES; Urine Pregnancy NEGATIVE (NEGATIVE)
[2021-08-02 11:58] LABS: Bacteria Urine 1+ /LPF; Squamous Epithelial Cell Urine 1+ /LPF; WBC Urine 50-75 /HPF (0-4)
[2021-08-02 12:44] VITALS: BP 135/75; PULSE 54; RESP 18; O2SAT 100
== END 2021-08-02 13:13 | disposition home or self-care (01) ==
PROVIDERS: Emergency Provider Emergency Medicine; PCP Internal Medicine
DX: N30.00 Acute cystitis without hematuria (principal); R10.13 Epigastric pain; Z98.84 Bariatric surgery status; Z90.49 Acquired absence of other specified parts of digestive tract
CPT/HCPCS: 36415; 80048; 80076; 81001; 81025; 83690; 84484; 85025; 87086; 87147; 93005; 96361; 96374; 96375; 96376; 99284; J2405

== ENCOUNTER 2021-08-14 14:57 | Outpatient (REF) | payer OTHER, SELFPAY ==
--- NOTE | ~2021-08-14 | MM_ITS ---
EXAMINATION: MM SCREENING DIGITAL BREAST TOMOSYNTHESIS, BILATERAL CLINICAL INFORMATION: Screening. Asymptomatic. The lifetime risk of breast cancer based on the Tyrer-Cuzick Model is 8%. COMPARISON: Mammography: 07/13/2020 TECHNIQUE: Digital breast tomosynthesis is performed in both the craniocaudal and mediolateral oblique views along with computer-aided detection (CAD). Synthesized 2D images are generated from the tomosynthesis. Additional left MLO view is provided. FINDINGS: There are scattered areas of fibroglandular density (ACR BI-RADS breast composition Category b). There are no significant masses, abnormal calcifications, or other abnormalities. Parenchymal pattern is similar to prior exam. There is no interval mass or architectural abnormality. No significant changes. MM/MM tomosynthesis screening BI IMPRESSION: No mammographic evidence of malignancy. ASSESSMENT: BI-RADS 1: Negative RECOMMENDATION: Routine annual mammography screening. This patient's information was entered into a reminder system with a target due date for their next mammogram.
== END 2021-08-14 14:58 | disposition home or self-care (01) ==
LOC: HO.MAMMO 14:57
PROVIDERS: Visit Provider Internal Medicine
DX: Z12.31 Encounter for screening mammogram for malignant neoplasm of breast (principal)
CPT/HCPCS: 77063; 77067

== ENCOUNTER 2021-08-26 08:16 | Outpatient (REF) | payer OTHER, SELFPAY ==
[2021-08-26 08:23] LABS: MANUAL DIFF FLAG NO
[2021-08-26 10:03] LABS: Appearance Urine HAZY; Basophils Percent Auto 0.5 % (0-2); Color Urine YELLOW; Eosinophils Percent Auto 0.5 % (0-4); Glucose Urine UA NEG (NEG); Hematocrit 34.1 % (37.0-47.0); Hemoglobin 10.9 g/dl (12.0-16.0); Imm Gran Abs Auto 0.02 X10*3/uL (0.00-0.03); Imm Gran Pct Auto 0.3 % (0.0-0.4); Leukocyte Esterase Urine TRACE (NEG); Lymphocytes Absolute Auto 1.5 X10*3/uL (1.2-4.9); Lymphocytes Percent Auto 24.1 % (20-40); Mean Corpuscular Hemoglobin 25.2 pg (27.0-33.0); Mean Corpuscular Volume 78.9 fL (80.0-98.0); Mean Platelet Volume 10.7 fL (9.4-12.3); Monocytes Absolute Auto 0.7 X10*3/uL (0.1-1.2); Monocytes Percent Auto 12.2 % (2-11); Neutrophils Absolute Auto 3.8 x10*3/uL (2.0-8.3); Neutrophils Percent Auto 62.4 % (45-73); Nitrite Urine NEG (NEG); PH 5.5 (5.0-8.0); Platelet Count 289 X10*3/uL (160-400); Red Blood Count 4.32 X10*6/uL (4.20-5.50); Red Cell Distribution Width 15.9 % (11.0-16.0); Specific Gravity - Urine 1.025 (1.005-1.025); UACC Culture Trigger YES; Urine Blood TRACE (NEG); Urine Ketones NEG (NEG); Urine Protein NEG (NEG-TRACE); White Blood Count 6.1 X10*3/uL (4.8-10.8)
[2021-08-26 10:18] LABS: Cholesterol 167 mg/dL; HDL Cholesterol 66 mg/dL; Iron 38 mcg/dL (30-160); LDL Cholesterol Calculated 89 mg/dl; Percent Iron Saturation 10 % (15-50); Total Iron Binding Capacity 400 mcg/dL (228-428); Triglycerides 63 mg/dL; Unsaturated Iron Binding 362 ug/dL
[2021-08-26 10:42] LABS: TSH reflex Free T4 1.39 uIU/mL (0.32-4.0); Vitamin D 25-OH Total 24.4 ng/mL (>30)
[2021-08-26 11:00] LABS: Mucus Urine TRACE /LPF; RBC Urine 0-2 /HPF (0); Squamous Epithelial Cell Urine 2+ /LPF
== END 2021-08-26 08:17 | disposition home or self-care (01) ==
LOC: HO.LAB 08:16
PROVIDERS: PCP Internal Medicine; Visit Provider Internal Medicine
DX: Z00.00 Encounter for general adult medical examination without abnormal findings (principal); D50.9 Iron deficiency anemia, unspecified; E55.9 Vitamin D deficiency, unspecified; E78.00 Pure hypercholesterolemia, unspecified; D64.9 Anemia, unspecified
CPT/HCPCS: 36415; 80061; 81001; 81003; 82306; 83540; 84443; 85025; 87086

== ENCOUNTER 2021-11-05 23:26 | Inpatient (IN) | payer OTHER, SELFPAY ==
--- NOTE | 2021-11-05 | ECG_ITS ---
Test Reason : ABD PAIN Blood Pressure : / mmHG Vent. Rate : 060 BPM Atrial Rate : 060 BPM P-R Int : 150 ms QRS Dur : 084 ms QT Int : 394 ms P-R-T Axes : 048 029 034 degrees QTc Int : 394 ms Normal sinus rhythm with sinus arrhythmia Normal ECG When compared with ECG of 02-AUG-2021 10:10, No significant change was found Referred By: Generic ED Physician Electronically Signed By:TALON CORTES
--- NOTE | ~2021-11-05 | CT_ITS ---
EXAMINATION: CT ABDOMEN AND PELVIS WITH CONTRAST CLINICAL INFORMATION: Epigastric pain. COMPARISON: 11/06/2021. TECHNIQUE: Multidetector volumetric images were obtained from the superior aspect of the liver through the pubic symphysis following administration 85 mL of Omnipaque 350 intravenous contrast. Sagittal and coronal reformatted images were obtained on the technologist's workstation. Oral contrast: No This CT examination was performed using dose optimization techniques as appropriate, variously including the following: *Automated exposure control *Adjustment of mA and/or kV according to patient size (this includes techniques or standardized protocols for targeted exams where dose is matched to indication/reason for exam; i.e. extremities or head) *Use of iterative reconstruction technique DLP: 389 mGy-cm FINDINGS: LUNG BASES: The visualized lung bases are unremarkable. LIVER, GALLBLADDER, AND BILIARY TREE: The liver is normal in size, shape, and attenuation. No focal hepatic. Cholecystectomy. Mild intrahepatic and extrahepatic biliary ductal dilatation. No ductal filling defect. PANCREAS: Unremarkable. SPLEEN: Unremarkable. ADRENAL GLANDS: Unremarkable. KIDNEYS AND URETERS: The kidneys are normal in size, shape, and attenuation. No hydronephrosis, hydroureter, or calculi seen. No perinephric stranding. BLADDER: Unremarkable. GASTROINTESTINAL TRACT: Postsurgical changes of the stomach status post gastric bypass. No dilated loops of bowel. No bowel wall thickening. No colonic abnormality. No free air or free fluid. ABDOMINAL WALL: No significant hernia is appreciated. LYMPH NODES: Normal. VASCULAR: Normal caliber aorta. The previous appearance of mild twisting of the mesenteric vasculature is no longer seen. This has a normal appearance at this time. PELVIC VISCERA: Anteverted uterus. 1.3 cm nodular enhancement in the region of the lower uterine segment, possibly a fibroid. No adnexal mass area there is a peripherally enhancing right ovarian follicle measuring 1.9 cm. OSSEOUS STRUCTURES: No acute or suspicious osseous abnormality. CT/CT abdomen pelvis w con IMPRESSION: No acute finding of the abdomen or pelvis. No inflammatory changes. Cholecystectomy. Mild intrahepatic and extrahepatic biliary ductal dilatation is unchanged from prior. This can be seen in the setting of cholecystectomy. Postsurgical changes of gastric bypass. Fleischner guidelines were followed.
--- NOTE | ~2021-11-05 | CT_ITS ---
EXAMINATION: CT ABDOMEN AND PELVIS WITH CONTRAST CLINICAL INFORMATION: Upper abdominal pain status post gastric bypass. COMPARISON: None TECHNIQUE: Multidetector volumetric images were obtained from the superior aspect of the liver through the pubic symphysis following administration 85 mL of Omnipaque 350 intravenous contrast. Sagittal and coronal reformatted images were obtained on the technologist's workstation. Oral contrast: Yes This CT examination was performed using dose optimization techniques as appropriate, variously including the following: *Automated exposure control *Adjustment of mA and/or kV according to patient size (this includes techniques or standardized protocols for targeted exams where dose is matched to indication/reason for exam; i.e. extremities or head) *Use of iterative reconstruction technique DLP: 489 mGy-cm FINDINGS: LUNG BASES: The visualized lung bases are unremarkable. LIVER, GALLBLADDER, AND BILIARY TREE: The liver is normal in size, shape, and attenuation. No focal hepatic lesion. Cholecystectomy. Intrahepatic and extrahepatic biliary ductal dilatation. No ductal filling defect. PANCREAS: Unremarkable. SPLEEN: Unremarkable. ADRENAL GLANDS: Unremarkable. KIDNEYS AND URETERS: The kidneys are normal in size, shape, and attenuation. No hydronephrosis, hydroureter, or calculi seen. No perinephric stranding. BLADDER: Unremarkable. GASTROINTESTINAL TRACT: Status post gastric bypass. Contrast is seen in the small bowel extending distally. There is no obstruction. No colonic wall thickening or inflammatory change. No free air. Trace free fluid in the pelvis. ABDOMINAL WALL: No significant hernia is appreciated. LYMPH NODES: Normal. VASCULAR: Normal caliber aorta. There is a twisting seen of the mesenteric vessels, though no abnormal appearance of the bowel present. PELVIC VISCERA: The uterus and adnexa are unremarkable. OSSEOUS STRUCTURES: No acute or suspicious osseous abnormality. CT/CT abdomen pelvis w con IMPRESSION: Status post gastric bypass without obstruction. Contrast extends distally in the small bowel. There is some twisting of the mesenteric vasculature, though no bowel abnormality associated. Intrahepatic and extrahepatic biliary ductal dilatation noted, as can be seen in the setting of cholecystectomy. Fleischner guidelines were followed.
--- NOTE | ~2021-11-05 | US_ITS ---
EXAMINATION: US ABDOMEN LIMITED CLINICAL INFORMATION: Pancreatitis. COMPARISON: Previous CT of the abdomen and pelvis 11/06/2021 TECHNIQUE: Real-time imaging of the right upper quadrant abdominal viscera. FINDINGS: PANCREAS: The pancreas is not well visualized due to bowel gas. The visualized head and body of the pancreas may have a slightly heterogeneous echotexture. No focal lesion is appreciated. The main pancreatic duct is upper normal in size measuring 3 mm. LIVER: The left lobe of the liver is not well visualized due to bowel gas. Liver echotexture is normal. There is mild intrahepatic biliary duct dilatation. No focal liver lesion is seen. GALLBLADDER: Surgically removed COMMON BILE DUCT: Slightly dilated measuring 1.1 cm in diameter. No common bile duct stone seen by ultrasound. RIGHT KIDNEY: Normal. No hydronephrosis. No renal calculi or focal parenchymal lesions. The kidney measures 11 cm in maximum dimension. FREE FLUID: None. US/US abdomen limited IMPRESSION: Post cholecystectomy. Mild intra and extrahepatic biliary duct dilatation. No common bile duct stone seen. Limited visualization of the pancreas and left lobe of the liver.
[2021-11-05 23:27] VITALS: BP 151/61; PULSE 75; RESP 18; TEMP 37; O2SAT 100; BMI 26.4
--- NOTE | 2021-11-05 23:53 | ED_ITS ---
HPI - Abdominal Pain General Chief Complaint: Abdominal Pain Stated Complaint: abd pain Time Seen by Provider: 11/05/21 23:53 Source: patient Mode of arrival: ambulatory Limitations: no limitations History of Present Illness HPI narrative: Patient 51 years old with history of gastric bypass in 2018, frequent abdominal pain, asthma and gastritis comes here for epigastric pain radiating to her back started earlier today associated with nausea and vomiting , feel distended, no diarrhea fever or chills denies any shortness of breath or chest pain patient vomited about 10 times today unable to tolerate any p.o. fluids feels this pain is different than before Related Data Previous Rx's Medication Instructions Recorded cefuroxime axetil 500 mg tablet 500 mg PO BID #14 tab 08/02/21 albuterol sulfate 90 mcg/actuation 1 inh INHALATION QID PRN 30 Days 08/11/21 aerosol inhaler (ProAir HFA) #8.5 g omeprazole 20 mg capsule,delayed 20 mg PO BID 30 Days #60 cap 08/11/21 release Allergies Allergy/AdvReac Type Severity Reaction Status Date / Time No Known Allergies Allergy Verified 11/05/21 23:27 [No Known Allergies*] Review of Systems Review of Systems Yes all other systems are reviewed and are negative Physical Exam Verdana 4l Vital Signs: Verdana 4d Verdana 4d Vital Signs: Verdana 4d Verdana 4Bd Last Vital Signs Verdana 4d Hot Press Operator New 4d Hot Press Operator New 4d Temp 98.2 F 11/06/21 00:47 Hot Press Operator New 4d Pulse 48 L 11/06/21 00:47 Hot Press Operator New 4d Resp 12 11/06/21 00:47 BP 153/85 H 11/06/21 00:47 Pulse Ox 100 11/06/21 00:47 BMI result Body Mass Index 26.4 Appearance: Alert. Oriented X3. No acute distress. Eyes: No pallor ENT: Pharynx normal. Oral Mucosa moist Neck: Normal inspection. Neck supple. CVS: Normal heart rate and rhythm. Pulses normal. Respiratory: No respiratory distress. Equal air entry bilateral, no wheezing/rales/rhonchi Abdomen: Soft , tenderness in epigastric area with slight distension hyperactive bowel sounds no mass palpable, no CVA tenderness no rebound tenderness or guarding Skin: Skin warm and dry. Normal skin color. Normal skin turgor. Extremities: No lower extremity edema. No calf tenderness Neuro: Oriented X 3 MDM - Abdominal Pain MDM Narrative Medical decision making narrative: Patient with elevated lipase CT scan negative for any acute inflammation patient with significant pain unable to tolerate p.o. fluids will admit patient for IV hydration and pain control Lab Data Attestation: I reviewed the patient's lab results. Result diagrams: 11/05/21 23:53 11/05/21 23:53 Labs: Lab Results 11/05/21 11/05/21 11/05/21 Range/Units 23:53 23:53 23:53 WBC 7.9 (4.8-10.8) X10*3/uL RBC 4.17 L (4.20-5.50) X10*6/uL Hgb 10.3 L (12.0-16.0) g/dl Hct 32.9 L (37.0-47.0) % MCV 78.9 L (80.0-98.0) fL MCH 24.7 L (27.0-33.0) pg MCHC 31.3 (31.0-35.0) g/dl RDW 15.5 (11.0-16.0) % Plt Count 283 (160-400) X10*3/uL MPV 10.0 (9.4-12.3) fL Immature Gran % (Auto) 0.3 (0.0-0.4) % Neut % (Auto) 67.2 (45-73) % Lymph % (Auto) 23.5 (20-40) % [place] % (Auto) 8.3 (2-11) % Eos % (Auto) 0.3 (0-4) % Baso % (Auto) 0.4 (0-2) % Lymph # (Auto) 1.9 (1.2-4.9) X10*3/uL [place] # (Auto) 0.7 (0.1-1.2) X10*3/uL Eos # (Auto) 0.0 (0.0-0.4) X10*3/uL Baso # (Auto) 0.0 (0.0-0.2) X10*3/uL Abs Immat Gran (auto) 0.02 (0.00-0.03) X10*3/uL Absolute Neuts (auto) 5.3 (2.0-8.3) x10*3/uL Absolute Nucleated RBC 0.000 (0.0-0.012) X10*3/uL Nucleated RBC % (auto) 0.0 (0.0-0.2) /100WBC Sodium 137 (135-145) mmol/L Potassium 3.9 (3.3-5.1) mmol/L Chloride 106 (96-108) mmol/L Carbon Dioxide 25 (22-29) mmol/L Anion Gap 10 L (12-20) BUN 9 (9-16) mg/dL Creatinine 0.67 (0.5-1.4) mg/dL Estim Creat Clear Calc 86.7 Estimated GFR > 60 Random Glucose 104 (60-115) mg/dL Calcium 8.8 (8.4-10.2) mg/dL Total Bilirubin 0.5 (0.0-1.0) mg/dL Direct Bilirubin 0.2 (0.0-0.5) mg/dL AST 22 (5-31) U/L ALT 11 (0-31) U/L Alkaline Phosphatase 56 (39-117) U/L Troponin I High Sens 9.0 (<3.5-17.0) ng/L Total Protein 6.3 L (6.5-8.0) g/dL Albumin 3.7 (3.5-5.0) g/dL Lipase 404 H (8-78) U/L Discharge Plan Discharge Clinical Impression: Acute pancreatitis Patient Disposition: Admitted As Inpatient [facility] Past Medical History Medical History (Updated 11/06/21 @ 01:42 by Sameer Mo MD) Abdominal pain ZHOU positive Asthma Gastritis Left sided abdominal pain Overweight (BMI 25.0-29.9) Varicose veins of bilateral lower extremities with pain Surgical History H/O gastric bypass (~2017) H/O tubal ligation Hx of cholecystectomy (~2014) Status post laser ablation of incompetent vein Family History Family History Father HTN (hypertension) Diabetes mellitus Mother HTN (hypertension) Diabetes mellitus Asthma Brother No problems noted. Brother No problems noted. Brother No problems noted. Brother No problems noted. Sister No problems noted. Daughter No problems noted. Son No problems noted. Son No problems noted. Social History Social History Household Members: Other Housing: Apartment Alcohol intake: never Patient Tobacco Use Status: Never used Tobacco Second Hand Smoke Exposure: Yes Use of substances other than those prescribed or required for medical reasons: No Advance Directives: No Patient : No service: No Current occupational status: employed
[2021-11-05 23:59] LABS: Basophils Percent Auto 0.4 % (0-2); Eosinophils Percent Auto 0.3 % (0-4); Hematocrit 32.9 % (37.0-47.0); Hemoglobin 10.3 g/dl (12.0-16.0); Imm Gran Abs Auto 0.02 X10*3/uL (0.00-0.03); Imm Gran Pct Auto 0.3 % (0.0-0.4); Lymphocytes Absolute Auto 1.9 X10*3/uL (1.2-4.9); Lymphocytes Percent Auto 23.5 % (20-40); MANUAL DIFF FLAG NO; Mean Corpuscular HGB Conc 31.3 g/dl (31.0-35.0); Mean Corpuscular Hemoglobin 24.7 pg (27.0-33.0); Mean Corpuscular Volume 78.9 fL (80.0-98.0); Monocytes Absolute Auto 0.7 X10*3/uL (0.1-1.2); Monocytes Percent Auto 8.3 % (2-11); Neutrophils Absolute Auto 5.3 x10*3/uL (2.0-8.3); Neutrophils Percent Auto 67.2 % (45-73); Platelet Count 283 X10*3/uL (160-400); Red Blood Count 4.17 X10*6/uL (4.20-5.50); Red Cell Distribution Width 15.5 % (11.0-16.0); White Blood Count 7.9 X10*3/uL (4.8-10.8)
[2021-11-06] VITALS (9 sets, daily range): BP systolic 117–162; BP diastolic 58–85; PULSE 47–56; RESP 12–19; TEMP 36.7–37.2; O2SAT 98–100
[2021-11-06 00:19] LABS: Alanine Aminotransferase 11 U/L (0-31); Albumin Level 3.7 g/dL (3.5-5.0); Alkaline Phosphatase 56 U/L (39-117); Anion Gap 10 (12-20); Aspartate Amino Transferase 22 U/L (5-31); Bilirubin Direct 0.2 mg/dL (0.0-0.5); Bilirubin Total 0.5 mg/dL (0.0-1.0); Blood Urea Nitrogen 9 mg/dL (9-16); Calcium 8.8 mg/dL (8.4-10.2); Carbon Dioxide 25 mmol/L (22-29); Chloride 106 mmol/L (96-108); Creatinine Clr Calc Pharmacy 86.7; Estimated Glomerular Filt Rate > 60; Glucose Random 104 mg/dL (60-115); Lipase 404 U/L (8-78); Potassium 3.9 mmol/L (3.3-5.1); Sodium 137 mmol/L (135-145); Total Protein 6.3 g/dL (6.5-8.0)
[2021-11-06] MEDS: 0.9 % Sodium Chloride 1,000 ML 999 ML IV (00:39)
[2021-11-06] MEDS: ondansetron HCL 4 MG/2 ML VIAL IVPUSH ×2 (00:39→15:47)
[2021-11-06] MEDS: Morphine Sulfate 4 MG/ML CARTRIDGE IVPUSH ×3 (00:39→19:53)
[2021-11-06] MEDS: iohexoL 350 MG/ML 100 ML INFUS..BTL 85 ML IV (01:22)
--- NOTE | 2021-11-06 02:02 | P.HPHOSP_ITS ---
History of Present Illness Date of Service: 11/06/21 Chief Complaint: Abdominal pain This is a 51-year-old female with past medical history of asthma presents to the hospital with complaints of epigastric abdominal pain. Patient reports that the pain started 2 days ago, 07/16, radiating to the back, constant, worse with eating, associated with nausea and 1 episode of vomiting, relieved with bending over, no diarrhea constipation, no urinary symptoms and no lower extremity edema. She has no headache or change in vision, known with numbness weakness or tingling. Arrival to the ED patient hemodynamically stable with no significant abnormal vitals Labs are significant for WBC count of 7.9, hemoglobin of 10.3, hematocrit 32.9, MCV of 78.9, lipase of 404, no elevated AST ALT alk-phos, and abdominal pelvic CT showed normal pancreas and no gallbladder disease. Patient will be admitted for further management of pancreatitis Review of Systems Verdana 4l Review of Systems: Yes all other systems are reviewed and Verdana 4d are negative [facility] Medical History Abdominal pain ZHOU positive Asthma Gastritis Left sided abdominal pain Overweight (BMI 25.0-29.9) Varicose veins of bilateral lower extremities with pain Family History Father HTN (hypertension) Diabetes mellitus Mother HTN (hypertension) Diabetes mellitus Asthma Brother No problems noted. Brother No problems noted. Brother No problems noted. Brother No problems noted. Sister No problems noted. Daughter No problems noted. Son No problems noted. Son No problems noted. Surgical History H/O gastric bypass (~2017) H/O tubal ligation Hx of cholecystectomy (~2014) Status post laser ablation of incompetent vein Social History Household Members: Other Housing: Apartment Alcohol intake: never Patient Tobacco Use Status: Never used Tobacco Second Hand Smoke Exposure: Yes Use of substances other than those prescribed or required for medical reasons: No Advance Directives: No Patient : No service: No Current occupational status: employed Meds Allergies Allergy/AdvReac Type Severity Reaction Status Date / Time No Known Allergies Allergy Verified 11/05/21 23:27 [No Known Allergies*] Physical Exam Verdana 4l Vital Signs and Narrative: Verdana 4d Verdana 4d Vital Signs: Verdana 4d Verdana 4Bd Last Vital Signs Verdana 4d Manager It Training New 4d Manager It Training New 4d Temp 98.2 F 11/06/21 00:47 Manager It Training New 4d Pulse 48 L 11/06/21 00:47 Manager It Training New 4d Resp 12 11/06/21 00:47 BP 153/85 H 11/06/21 00:47 Pulse Ox 100 11/06/21 00:47 BMI result Body Mass Index 26.4 Const: General: cooperative and no acute distress Orientation/consciousness: patient oriented x3 Eyes: General: appearance normal, both eyes and all related structures Pupils: Equal, round and reactive pupils present Resp: Effort & Inspection: normal respiratory effort Auscultation: clear to auscultation bilaterally Cardio: Rate: regular rate Rhythm: regular rhythm GI: Other: Tender in the epigastric region, guarding, no rebound Palpation (GI): Soft to palpation Auscultation: normal bowel sounds Skin: General skin exam: no rashes or lesions noted Neuro: General: patient oriented x3 Cranial nerves: Yes Equal, round and reactive pupils present Cognition (Neuro): normal cognition Extrem: General: Yes normal to inspection and Yes no pedal edema Results Labs CBC and Chem 7: 11/05/21 23:53 11/05/21 23:53 Labs: Laboratory Results - last 24 hr 11/05/21 11/05/21 11/05/21 23:53 23:53 23:53 MCV 78.9 L MCH 24.7 L MCHC 31.3 RDW 15.5 Plt Count 283 MPV 10.0 Immature Gran % (Auto) 0.3 Neut % (Auto) 67.2 Lymph % (Auto) 23.5 [place] % (Auto) 8.3 Eos % (Auto) 0.3 Baso % (Auto) 0.4 Lymph # (Auto) 1.9 [place] # (Auto) 0.7 Eos # (Auto) 0.0 Baso # (Auto) 0.0 Abs Immat Gran (auto) 0.02 Absolute Neuts (auto) 5.3 Absolute Nucleated RBC 0.000 Nucleated RBC % (auto) 0.0 Anion Gap 10 L Estim Creat Clear Calc 86.7 Estimated GFR > 60 Random Glucose 104 Calcium 8.8 Total Bilirubin 0.5 Direct Bilirubin 0.2 AST 22 ALT 11 Alkaline Phosphatase 56 Troponin I High Sens 9.0 Total Protein 6.3 L Albumin 3.7 Lipase 404 H Imaging Radiologist's Impressions: Impressions Abdomen/Pelvis CT 11/06/21 01:24 IMPRESSION: Status post gastric bypass without obstruction. Contrast extends distally in the small bowel. There is some twisting of the mesenteric vasculature, though no bowel abnormality associated. Intrahepatic and extrahepatic biliary ductal dilatation noted, as can be seen in the setting of cholecystectomy. Fleischner guidelines were followed. Assessment and Plan (1) Acute pancreatitis: Status: Acute (2) Abdominal pain: Status: Acute Plan This is a 51-year-old female with past medical history of gastritis as well as asthma presents to the hospital with complaints of epigastric abdominal pain radiating to the back # acute pancreatitis - has elevated lipase, and characteristic epigastric abdominal pain - no evidence of gallstones, triglycerides normal, not on any medications that would exacerbate pancreatitis - will treat with aggressive IV fluids, pain control, as well as NPO - right upper quadrant ultrasound # abdominal pain - secondary to above versus gastritis less likely - IV fluids - Continue home omeprazole # asthma - not in exacerbation - p.r.n. albuterol inhaler DVT prophylaxis: Lovenox Quality Stroke Does the patient have a stroke diagnosis?: No VTE Prior VTE?: No VTE Risk Level:: Medical - moderate - high VTE Device Contraindication: Treatment Not Indicated VTE Drug Contraindication: N/A - Med Ordered
[2021-11-06] MEDS: Lactated Ringers 1,000 ML 200 ML IVCONT ×5 (02:28→21:23)
[2021-11-06 02:54] LABS: COVID-19 Test Negative (Negative)
[2021-11-06 03:06] LABS: Triglycerides 65 mg/dL
[2021-11-06 06:27] LABS: MANUAL DIFF FLAG NO
[2021-11-06 06:37] LABS: Basophils Percent Auto 0.1 % (0-2); Eosinophils Percent Auto 0.1 % (0-4); Hematocrit 30.4 % (37.0-47.0); Hemoglobin 9.6 g/dl (12.0-16.0); Imm Gran Abs Auto 0.05 X10*3/uL (0.00-0.03); Imm Gran Pct Auto 0.7 % (0.0-0.4); Lymphocytes Percent Auto 13.8 % (20-40); Mean Corpuscular HGB Conc 31.6 g/dl (31.0-35.0); Mean Corpuscular Hemoglobin 24.9 pg (27.0-33.0); Mean Corpuscular Volume 78.8 fL (80.0-98.0); Mean Platelet Volume 10.4 fL (9.4-12.3); Monocytes Absolute Auto 0.7 X10*3/uL (0.1-1.2); Monocytes Percent Auto 9.9 % (2-11); Neutrophils Absolute Auto 5.3 x10*3/uL (2.0-8.3); Neutrophils Percent Auto 75.4 % (45-73); Platelet Count 252 X10*3/uL (160-400); Red Blood Count 3.86 X10*6/uL (4.20-5.50); Red Cell Distribution Width 15.8 % (11.0-16.0); White Blood Count 7.1 X10*3/uL (4.8-10.8)
[2021-11-06 06:51] LABS: Anion Gap 8 (12-20); Blood Urea Nitrogen 7 mg/dL (9-16); Calcium 8.4 mg/dL (8.4-10.2); Carbon Dioxide 25 mmol/L (22-29); Chloride 109 mmol/L (96-108); Creatinine Clr Calc Pharmacy 95.2; Estimated Glomerular Filt Rate > 60; Glucose Random 110 mg/dL (60-115); Potassium 4.4 mmol/L (3.3-5.1); Sodium 138 mmol/L (135-145)
[2021-11-06] MEDS: Omeprazole 40 MG CAPSULE.DR PO (07:32)
--- NOTE | 2021-11-06 07:41 | PHA.MEDREC ---
Pharmacy Consult ? Medication Reconciliation Pharmacy has completed the medication reconciliation. There are no remarkable issues. Patient reports she needs a refill on albuterol. Sharyn Wood, MarinaD
[2021-11-06 08:31] LABS: Ferritin 26 ng/mL (10-250)
--- NOTE | 2021-11-06 10:46 | P.EN_ITS ---
Event Note Date of Service: 11/06/21 Event Note: 51-year-old female patient with past medical history of asthma, status post gastric bypass, status post cholecystectomy history of gastritis presented to [facility] due to epigastric pain with radiation to back, with nausea and 1 episode of vomiting, no melena, no history of black stools no bright red blood per rectum in the emergency room noted to have hematocrit 32.9 low MCV 78.9 lipase of 404, normal LFTs and nl abdominal CT scan, patient admitted to hospital with a diagnosis of pancreatitis. patient admits to have heavy periods, takes NSAIDs. complaining of headache, epigastric pain on examination awake alert abdomen soft mild epigastric tenderness, no rebound no rigidity, nondistressed extremities no edema assessment/ plan epigastric pain with radiation to back, likely gastritis, peptic ulcer disease, less likely pancreatitis with no history of alcoholism, normal LFTs,, no medications, normal triglycerides, no trauma, no viral infection abdominal ultrasound showed mild intra and extrahepatic biliary duct dilatat ion, no common duct stone, limited visualization of pancreas obtain GI consult, IV fluids, follow labs, supportive care with antiemetics and PPI iron deficiency anemia likely due to heavy periods, Denies black stools,no melena, likely some competent of GI bleed, recommend outpatient OBGYN follow-up, strongly recommend to avoid NSAIDs, take PPI and GI eval for possible endoscopy
[2021-11-06] MEDS: Acetaminophen 325 MG TABLET 650 MG PO (15:46)
--- NOTE | 2021-11-06 15:47 | PC.NURSE ---
Pt received from main ER: Pt AOX4 c/o THORNTON and mild nausea. Pt given PRN PO tylenol and zofran. However pt unable to tolerate tylenol for long and vomited shortly afterwards. RN will continue to monitor. Heart sounds normal and lungs clear. Pt abd soft and gen tenderness. IV fluids running and IV patent.
--- NOTE | 2021-11-06 18:34 | MHC.CM.PN ---
PATIENT LIVES WITH HER BOYFRIEND. SHE IS FULLY INDEPENDENT WITH HER ADLS NO DME OR [facility] SERVICES CAR IS IN LOT AND SHE CAN DRIVE HERSELF HOME AT DISCHARGE. PATIENT HAS BEEN COVID VACCINATED WITH PFIZER SERIES BUT NO BOOSTER YET SHE DOES NOT RECALL THE DATES OF HER VACCINE BUT IF SHE IS ABLE TO, SHE WILL INFORM A DECORATOR MANNEQUIN. CASE MANAGEMENT FOLLOWING FOR DC PLANS.
[2021-11-06] MEDS: HYDROmorphone HCl 1 MG/ML SYRINGE 0.5 MG IVPUSH (21:36)
[2021-11-07] VITALS (7 sets, daily range): BP systolic 120–145; BP diastolic 62–78; PULSE 58–85; RESP 17–18; TEMP 36–37.3; O2SAT 97–100
[2021-11-07] MEDS: Lactated Ringers 1,000 ML 200 ML IVCONT ×3 (02:18→21:35)
[2021-11-07 05:52] LABS: MANUAL DIFF FLAG NO
[2021-11-07] MEDS: Omeprazole 40 MG CAPSULE.DR PO (06:05)
[2021-11-07 06:08] LABS: Basophils Percent Auto 0.4 % (0-2); Eosinophils Percent Auto 0.6 % (0-4); Hematocrit 29.4 % (37.0-47.0); Hemoglobin 9.1 g/dl (12.0-16.0); Imm Gran Abs Auto 0.01 X10*3/uL (0.00-0.03); Imm Gran Pct Auto 0.2 % (0.0-0.4); Lymphocytes Absolute Auto 1.5 X10*3/uL (1.2-4.9); Lymphocytes Percent Auto 29.4 % (20-40); Mean Corpuscular Hemoglobin 24.9 pg (27.0-33.0); Mean Corpuscular Volume 80.3 fL (80.0-98.0); Monocytes Absolute Auto 0.7 X10*3/uL (0.1-1.2); Monocytes Percent Auto 13.2 % (2-11); Neutrophils Absolute Auto 2.8 x10*3/uL (2.0-8.3); Neutrophils Percent Auto 56.2 % (45-73); Platelet Count 232 X10*3/uL (160-400); Red Blood Count 3.66 X10*6/uL (4.20-5.50); Red Cell Distribution Width 15.8 % (11.0-16.0); White Blood Count 4.9 X10*3/uL (4.8-10.8)
[2021-11-07 06:21] LABS: Anion Gap 6 (12-20); Blood Urea Nitrogen 6 mg/dL (9-16); Calcium 8.3 mg/dL (8.4-10.2); Carbon Dioxide 28 mmol/L (22-29); Chloride 109 mmol/L (96-108); Creatinine Clr Calc Pharmacy 90.8; Estimated Glomerular Filt Rate > 60; Glucose Random 93 mg/dL (60-115); Lipase 42 U/L (8-78); Potassium 4.2 mmol/L (3.3-5.1); Sodium 139 mmol/L (135-145)
--- NOTE | 2021-11-07 09:35 | P.CNGI_ITS ---
History of Present Illness Data of Consult Service Date: 11/07/21 Requesting physician: Manuel Piper Primary Care Provider: Ronny Lan MD HPI Reason for consult: abdo pain 51-year-old female with past medical history of asthma, cholecystectomy and gastric bypass who I am seeing for assessment for pancreatitis. She presented w/ 2-3 d of constant 10/10, epigastric abdominal pain radiating into the back worse wtih food and associated with nausea and non bloody emesis. denies diarrhea or constipation, no urinary symptoms and no lower extremity edema. no melena, no history of black stools no bright red blood per rectum. she does suffer menorrhagia and takes nsaids from time to time. She is compliant with multivitamins and other nutritional supplements since gastric bypass today she feels hungry and took some soldi food but it increased her pain. She has never had these symptoms before. Labs: WBC count of 7.9, hemoglobin of 10.3, hematocrit 32.9, MCV of 78.9, lipase of 404, normal AST ALT alk-phos CT: normal pancreas, mild biliary dilation, f/u US without any CBD lesions or defects. Review of Systems Verdana 4l Review of Systems: Verdana 4d Verdana 4d Constitutional : No Weight loss, No Fever, No Chills ENT/Mouth : No sore throat, No Rhinorrhea Eyes: No Swelling, No Redness Cardiovascular : No Chest Pain, No SOB, No Edema Respiratory : No Cough, No Sputum, No Wheezing Gastrointestinal : see HPI Genitourinary : NO Dysuria, No Urinary Frequency, No Hematuria, No Urgency Musculoskeletal : No joint pain, No Myalgias, No Joint Swelling Skin : No Skin Lesions, No rash Neuro : No Weakness, No Numbness, No Dizziness, No Headache Psych : No Anxiety/Panic, No Depression Heme/Lymph: No Bruising, No Lymphadenopathy Endocrine : No Polyuria, No Polydipsia All other systems reviewed and are negative. Yes all other systems are reviewed and are negative FOR[facility]LY [facility] Past Medical History Medical History Abdominal pain ZHOU positive Asthma Gastritis Left sided abdominal pain Overweight (BMI 25.0-29.9) Varicose veins of bilateral lower extremities with pain Family History Family History Father HTN (hypertension) Diabetes mellitus Mother HTN (hypertension) Diabetes mellitus Asthma Brother No problems noted. Brother No problems noted. Brother No problems noted. Brother No problems noted. Sister No problems noted. Daughter No problems noted. Son No problems noted. Son No problems noted. Surgical History Surgical History H/O gastric bypass (~2017) H/O tubal ligation Hx of cholecystectomy (~2014) Status post laser ablation of incompetent vein Social History Social History Household Members: Significant Other Housing: Apartment Do you presently have visiting nurse or other home services: No Alcohol intake: never Patient Tobacco Use Status: Never used Tobacco Second Hand Smoke Exposure: Yes service: No Current occupational status: employed Meds Allergies Allergy/AdvReac Type Severity Reaction Status Date / Time No Known Allergies Allergy Verified 11/05/21 23:27 [No Known Allergies*] Active Medications: Current Medications Acetaminophen (Acetaminophen 325 Mg Tablet) 650 mg PO Q6H PRN PRN Reason: Pain, Mild (Pain Scale 1-3) Last Admin: 11/06/21 15:46 Dose: 650 mg Documented by: Albuterol Sulfate (Albuterol Sulfate 90 Mcg 8 Gm Inhaler) 2 puff INHALE RQ4H P RN PRN Reason: Shortness of Breath/Wheezing Enoxaparin Sodium (Enoxaparin Sodium 40 Mg/0.4 Ml Syringe) 40 mg SUBCUT Q24H JIMENEZ Last Admin: 11/06/21 09:26 Dose: Not Given Documented by: Hydromorphone HCl (Hydromorphone Hcl 1 Mg/Ml Syringe) 0.5 mg IVPUSH Q4H PRN; Protocol PRN Reason: Pain, Severe (Pain Scale 7-10) Last Admin: 11/06/21 21:36 Dose: 0.5 mg Documented by: Lactated Ringer's (Lr) 1,000 mls @ 200 mls/hr IVCONT .Q5H JIMENEZ Last Admin: 11/07/21 06:36 Dose: 200 mls/hr Documented by: Morphine Sulfate (Morphine Sulfate 4 Mg/Ml Cartridge) 4 mg IVPUSH Q4H PRN; Protocol PRN Reason: Pain, Severe (Pain Scale 7-10) Last Admin: 11/06/21 19:53 Dose: 4 mg Documented by: Omeprazole (Omeprazole 40 Mg Capsule.) 40 mg PO DAILY@0700 [facility] Last Admin: 11/07/21 06:05 Dose: 40 mg Documented by: Ondansetron HCl (Ondansetron Hcl 4 Mg/2 Ml Vial) 4 mg IVPUSH Q8H PRN PRN Reason: Nausea and Vomiting Last Admin: 11/06/21 15:47 Dose: 4 mg Documented by: Sodium Chloride (0.9 % Sodium Chloride Flush 3 Ml Syringe) 3 ml IVFLUSH QSHIFT [facility] Last Admin: 11/07/21 00:06 Dose: Not Given Documented by: Home Medications Medication Instructions Recorded Confirmed Last Taken Type ibuprofen 200 mg 400 mg PO Q6H 11/06/21 11/06/21 Unknown History tablet PRN Physical Exam Verdana 4l Vital Signs: Verdana 4d Verdana 4d Vital Signs: Verdana 4d Verdana 4Bd Last Vital Signs Verdana 4d Street Supervisor New [address] Supervisor New 4d Temp 97.8 F 11/07/21 07:29 Street Supervisor New 4d Pulse 62 11/07/21 07:29 Street Supervisor New 4d Resp 17 11/07/21 07:29 BP 140/71 H 11/07/21 07:29 Pulse Ox 100 11/07/21 07:29 BMI result Body Mass Index 26.4 Const: General: cooperative and no acute distress Orientation/consciousness: patient oriented x3 Eyes: General: appearance normal, both eyes and all related structures Pupils: Equal, round and reactive pupils present Resp: Effort & Inspection: normal respiratory effort Auscultation: clear to auscultation bilaterally Cardio: Rate: regular rate Rhythm: regular rhythm GI: Other: Tender in the epigastric region, guarding, no rebound Inspection: Yes normal to inspection Palpation (GI): Soft to palpation and Tenderness to palpation present (GI) in the epigastrum Auscultation: normal bowel sounds Skin: General skin exam: no rashes or lesions noted Neuro: General: patient oriented x3 Cranial nerves: Yes Equal, round and reactive pu pils present Cognition (Neuro): normal cognition Extrem: General: Yes normal to inspection and Yes no pedal edema Psych: Appearance: grossly normal Results Labs CBC & Chem 7: 11/07/21 05:40 11/07/21 05:40 Labs: Short CBC 11/07/21 Range/Units 05:40 WBC 4.9 (4.8-10.8) X10*3/uL Hgb 9.1 L (12.0-16.0) g/dl Hct 29.4 L (37.0-47.0) % Plt Count 232 (160-400) X10*3/uL BMP 11/07/21 05:40 Sodium 139 Potassium 4.2 Chloride 109 H Carbon Dioxide 28 BUN 6 L Creatinine 0.64 Calcium 8[address] scan - abdomen: Attestation: I personally reviewed and interpreted this imaging study as follows: My impression: dilated cbd, normal appearing pancreas, slightly priminent PD, gastric bypass, hyperattenuated small bowel Assessment and Plan (1) Acute pancreatitis: Status: Acute (2) Abdominal pain: Status: Acute Plan 1/ Acute abdominal pain with post prandial exacerbation, lipase elevation, dilated CBD DDX; pancreatitis, small bowel enteropathy, anastomotic ulcer at bypass site, microlithiasis, SOD==dilated CBD maybe from prior cholecystectomy 2/ Microcytic anemia, wth menorhagia, no overt GI bleeding by history PLAN: 1/ EGD tomorrow to eval uppr GI tract 2/ cont with IV fluids preferably LR, Po diet as tolerated 3/ analgesia prn 4/ check celiac panel 5/ if pain persists and Ix above are neg then MRCP Procedures Date of Service Date of Service: 11/07/21
[2021-11-07] MEDS: Enoxaparin Sodium 40 MG/0.4 ML SYRINGE SUBCUT (09:47)
--- NOTE | 2021-11-07 12:40 | MHC.CM.PN ---
CURRENTLY AWAITING A GI CONSULT FOR PLANS. PATIENT WILL EVENTUALLY BE DC HOME - SELF CARE HER CAR IS IN [facility].
--- NOTE | 2021-11-07 14:34 | P.PNIM_ITS ---
Subjective Subjective Date of Service: 11/07/21 Interval History: complaining of persistent epigastric pain worse after taking clear liquids with radiation to back no fevers, no chills ,no other acute issues overnight. denies nausea vomiting. Review of Systems Review of Systems: Yes all other systems are reviewed and are negative Physical Exam Verdana 4l Vital Signs: Verdana 4d Verdana 4d Vital Signs: Verdana 4d Verdana 4Bd Last Vital Signs Verdana 4d Neuropathologist New 4d Neuropathologist New 4d Temp 97.7 F 11/07/21 12:00 Neuropathologist New 4d Pulse 85 11/07/21 12:00 Neuropathologist New 4d Resp 17 11/07/21 12:00 BP 122/62 11/07/21 12:00 Pulse Ox 98 11/07/21 12:00 BMI result Body Mass Index 26.4 Const: Other: General no acute distress. Neck supple no JVD. CVS regular rate rhythm, Respiratory lungs clear to auscultation, no respiratory distress Gastrointestinal abdomen soft, mild epigastric tenderness, bowel sounds audible, no guarding , no rigidity. Extremities no edema. Neuro nonfocal . Skin no rash psych appropriate affect Objective Data Active Medications Acetaminophen (Acetaminophen 325 Mg Tablet) 650 mg PO Q6H PRN PRN Reason: Pain, Mild (Pain Scale 1-3) Last Admin: 11/06/21 15:46 Dose: 650 mg Documented by: ZULMA Albuterol Sulfate (Albuterol Sulfate 90 Mcg 8 Gm Inhaler) 2 puff INHALE RQ4H PRN PRN Reason: Shortness of Breath/Wheezing Enoxaparin Sodium (Enoxaparin Sodium 40 Mg/0.4 Ml Syringe) 40 mg SUBCUT Q24H [facility] Last Admin: 11/07/21 09:47 Dose: 40 mg Documented by: LUIS Hydromorphone HCl (Hydromorphone Hcl 1 Mg/Ml Syringe) 0.5 mg IVPUSH Q4H PRN; Protocol PRN Reason: Pain, Severe (Pain Scale 7-10) Last Admin: 11/06/21 21:36 Dose: 0.5 mg Documented by: FREDI Lactated Ringer's (Lr) 1,000 mls @ 200 mls/hr IVCONT .Q5H [facility] Last Admin: 11/07/21 06:36 Dose: 200 mls/hr Documented by: FREDI Morphine Sulfate (Morphine Sulfate 4 Mg/Ml Cartridge) 4 mg IVPUSH Q4H PRN; Protocol PRN Reason: Pain, Severe (Pain Scale 7-10) Last Admin: 11/06/21 19:53 Dose: 4 mg Documented by: ROMEO Omeprazole (Omeprazole 40 Mg Capsule.Dr) 40 mg PO DAILY@0700 [facility] Last Admin: 11/07/21 06:05 Dose: 40 mg Documented by: FREDI Ondansetron HCl (Ondansetron Hcl 4 Mg/2 Ml Vial) 4 mg IVPUSH Q8H PRN PRN Reason: Nausea and Vomiting Last Admin: 11/06/21 15:47 Dose: 4 mg Documented by: ZULMA Sodium Chloride (0.9 % Sodium Chloride Flush 3 Ml Syringe) 3 ml IVFLUSH QSHIFT [facility] Last Admin: 11/07/21 09:50 Dose: Not Given Documented by: LUIS Non-Admin Reason: IV Running Labs CBC & Chem 7: 11/07/21 05:40 11/07/21 05:40 Labs: Laboratory Results - last 24 hr 11/07/21 11/07/21 05:40 05:40 MCV 80.3 MCH 24.9 L MCHC 31.0 RDW 15.8 Plt Count 232 MPV 11.0 Immature Gran % (Auto) 0.2 Neut % (Auto) 56.2 Lymph % (Auto) 29.4 [place] % (Auto) 13.2 H Eos % (Auto) 0.6 Baso % (Auto) 0.4 Lymph # (Auto) 1.5 [place] # (Auto) 0.7 Eos # (Auto) 0.0 Baso # (Auto) 0.0 Abs Immat Gran (auto) 0.01 Absolute Neuts (auto) 2.8 Absolute Nucleated RBC 0.000 Nucleated RBC % (auto) 0.0 Anion Gap 6 L Estim Creat Clear Calc 90.8 Estimated GFR > 60 Random Glucose 93 Calcium 8.3 L Lipase 42 Assessment and Plan (1) Abdominal pain: Status: Acute (2) Gastritis: Status: Acute (3) Iron deficiency anemia: Status: Acute Plan 51-year-old female patient with past medical history of asthma, status post gastric bypass, status post cholecystectomy history of gastritis presented to [facility] due to epigastric pain with radiation to back,? with nausea? and 1 episode of vomiting, no melena, no history of black stools no bright red blood per rectum in the emergency room noted to have hematocrit 32.9 low MCV 78.9 lipase of 404, normal LFTs and nl abdominal CT scan, patient admitted to hospital with a diagnosis of pancreatitis. patient admits to have heavy periods, takes NSAIDs. Epigastric pain with radiation to back, likely gastritis, peptic ulcer disease, less likely pancreatitis with no history of alcoholism, normal LFTs,, no medications, normal triglycerides, no trauma, no viral infection abdominal ultrasound showed mild intra and extrahepatic biliary duct dilatation, no common duct stone, limited visualization of pancreas case discussed with GI patient will undergo upper endoscopy tomorrow will keep her NPO after midnight lipase normalized, hematocrit dropped but stable continue IV fluids, antiemetics and PPI Iron deficiency anemia likely due to heavy periods, Denies black stools,no melena, likely some competent of GI bleed, recommend outpatient OBGYN follow-up, strongly recommend to avoid NSAIDs, take PPI upper endoscopy at am. asthma stable no acute exac. DVT prophylaxis:?on Lovenox disposition to home after patient undergo endoscopy. Quality Stroke Does the patient have a stroke diagnosis?: No VTE Prior VTE?: No VTE Risk Level:: Medical - moderate - high VTE Device Contraindication: Treatment Not Indicated VTE Drug Contraindication: N/A - Med Ordered
[2021-11-07] MEDS: Famotidine/PF 20 MG/2 ML VIAL IVPUSH (21:36)
[2021-11-08] VITALS (10 sets, daily range): BP systolic 124–170; BP diastolic 61–97; PULSE 48–74; RESP 16–20; TEMP 36.2–36.9; O2SAT 94–100
[2021-11-08] MEDS: Lactated Ringers 1,000 ML 200 ML IVCONT ×2 (05:05→10:52)
[2021-11-08] MEDS: Enoxaparin Sodium 40 MG/0.4 ML SYRINGE SUBCUT (10:52)
[2021-11-08] MEDS: Famotidine/PF 20 MG/2 ML VIAL IVPUSH ×2 (10:53→20:44)
--- NOTE | 2021-11-08 13:46 | MHC.SHP ---
Pre-Procedural Eval Section A Date of Service: 11/08/21 The patient is an INPATIENT: Yes The History & Physical has been completed within 30 days and I have reviewed it.: Yes Section B Chief Complaint: acute pancreatitis Allergies: Allergies Allergy/AdvReac Type Severity Reaction Status Date / Time No Known Allergies Allergy Verified 11/05/21 23:27 [No Known Allergies*] Plan Diagnosis/Plan: Unchanged I have reviewed the history and physical and performed a pertinent physical examination on my patient. No changes have occurred unless specified.
--- NOTE | 2021-11-08 14:04 | P.CONAN_ITS ---
FORMERLY [facility], LATER [facility] Active Problems Active Problems: All Active Problems (Updated 11/07/21 @ 14:44 by Manuel Piper MD) Iron deficiency anemia (Acute) Abdominal pain (Acute) Acute pancreatitis (Acute) Gastritis (Acute) Urinary tract infection (Acute) Asthma (Acute) Anemia (Acute) Annual physical exam (Acute) Epigastric pain (Acute) Bilateral lower extremity pain (Acute) Left sided abdominal pain (Acute) Overweight (BMI 25.0-29.9) (Acute) Abdominal pain (Acute) ZHOU positive (Acute) Varicose veins of right lower extremity with inflammation (Acute) Past Medical History Medical History Abdominal pain ZHOU positive Asthma Gastritis Left sided abdominal pain Overweight (BMI 25.0-29.9) Varicose veins of bilateral lower extremities with pain Family History Family History Father HTN (hypertension) Diabetes mellitus Mother HTN (hypertension) Diabetes mellitus Asthma Brother No problems noted. Brother No problems noted. Brother No problems noted. Brother No problems noted. Sister No problems noted. Daughter No problems noted. Son No problems noted. Son No problems noted. Surgical History Surgical History H/O gastric bypass (~2017) H/O tubal ligation Hx of cholecystectomy (~2014) Status post laser ablation of incompetent vein History of Problems with Anesthesia: No Social History Social History Household Members: Significant Other Housing: Apartment Do you presently have visiting nurse or other home services: No Alcohol intake: never Patient Tobacco Use Status: Never used Tobacco Second Hand Smoke Exposure: No service: No Current occupational status: employed Meds Allergies Allergy/AdvReac Type Severity Reaction Status Date / Time No Known Allergies Allergy Verified 11/05/21 23:27 [No Known Allergies*] Active Medications: Current Medications Acetaminophen (Acetaminophen 325 Mg Tablet) 650 mg PO Q6H PRN PRN Reason: Pain, Mild (Pain Scale 1-3) Last Admin: 11/06/21 15:46 Dose: 650 mg Documented by: Albuterol Sulfate (Albuterol Sulfate 90 Mcg 8 Gm Inhaler) 2 puff INHALE RQ4H PRN PRN Reason: Shortness of Breath/Wheezing Enoxaparin Sodium (Enoxaparin Sodium 40 Mg/0.4 Ml Syringe) 40 mg SUBCUT Q24H [facility] Last Admin: 11/08/21 10:52 Dose: 40 mg Documented by: Famotidine (Famotidine/Pf 20 Mg/2 Ml Vial) 20 mg IVPUSH BID [facility] Last Admin: 11/08/21 10:53 Dose: 20 mg Documented by: Hydromorphone HCl (Hydromorphone Hcl 1 Mg/Ml Syringe) 0.5 mg IVPUSH Q4H PRN; Protocol PRN Reason: Pain, Severe (Pain Scale 7-10) Last Admin: 11/06/21 21:36 Dose: 0.5 mg Documented by: Lactated Ringer's (Lr) 1,000 mls @ 100 mls/hr IVCONT .Q10H [facility] Last Admin: 11/08/21 10:52 Dose: 200 mls/hr Documented by: Morphine Sulfate (Morphine Sulfate 4 Mg/Ml Cartridge) 4 mg IVPUSH Q4H PRN; Protocol PRN Reason: Pain, Severe (Pain Scale 7-10) Last Admin: 11/06/21 19:53 Dose: 4 mg Documented by: Ondansetron HCl (Ondansetron Hcl 4 Mg/2 Ml Vial) 4 mg IVPUSH Q8H PRN PRN Reason: Nausea and Vomiting Last Admin: 11/06/21 15:47 Dose: 4 mg Documented by: Sodium Chloride (0.9 % Sodium Chloride Flush 3 Ml Syringe) 3 ml IVFLUSH QSHIFT [facility] Last Admin: 11/08/21 07:12 Dose: Not Given Documented by: Home Medications Medication Instructions Recorded Confirmed Last Taken Type ibuprofen 200 mg 400 mg PO Q6H 11/06/21 11/06/21 Unknown History tablet PRN Exam Exam Date and Time: November 08, 2021 1404 Height,Weight and Vital Signs: Height 5 ft 1 in Weight 63.503 kg Last Vital Signs Temp 98.1 F 11/08/21 13:13 Pulse 56 11/08/21 13:13 Resp 16 11/08/21 13:13 BP 169/71 H 11/08/21 13:13 Pulse Ox 98 11/08/21 13:13 Pertinent Lab Results Pertinent Lab Results: Laboratory Tests 11/05/21 11/05/21 11/05/21 23:53 23:53 23:53 WBC 7.9 RBC 4.17 L Hgb 10.3 L Hct 32.9 L MCV 78.9 L MCH 24.7 L MCHC 31.3 RDW 15.5 Plt Count 283 MPV 10.0 Immature Gran % (Auto) 0.3 Neut % (Auto) 67.2 Lymph % (Auto) 23.5 [place] % (Auto) 8.3 Eos % (Auto) 0.3 Baso % (Auto) 0.4 Lymph # (Auto) 1.9 [place] # (Auto) 0.7 Eos # (Auto) 0.0 Baso # (Auto) 0.0 Abs Immat Gran (auto) 0.02 Absolute Neuts (auto) 5.3 Absolute Nucleated RBC 0.000 Nucleated RBC % (auto) 0.0 Sodium 137 Potassium 3.9 Chloride 106 Carbon Dioxide 25 Anion Gap 10 L BUN 9 Creatinine 0.67 Estim Creat Clear Calc 86.7 Estimated GFR > 60 Random Glucose 104 Calcium 8.8 Ferritin Total Bilirubin 0.5 Direct Bilirubin 0.2 AST 22 ALT 11 Alkaline Phosphatase 56 Troponin I High Sens 9.0 Total Protein 6.3 L Albumin 3.7 Triglycerides Lipase 404 H COVID-19 (CLOTILDE) COVID-19 [employer] 11/06/21 11/06/21 11/06/21 02:34 02:50 06:23 WBC 7.1 RBC 3.86 L Hgb 9.6 L Hct 30.4 L MCV 78.8 L MCH 24.9 L MCHC 31.6 RDW 15.8 Plt Count 252 MPV 10.4 Immature Gran % (Auto) 0.7 H Neut % (Auto) 75.4 H Lymph % (Auto) 13.8 L [place] % (Auto) 9.9 Eos % (Auto) 0.1 Baso % (Auto) 0.1 Lymph # (Auto) 1.0 L [place] # (Auto) 0.7 Eos # (Auto) 0.0 Baso # (Auto) 0.0 Abs Immat Gran (auto) 0.05 H Absolute Neuts (auto) 5.3 Absolute Nucleated RBC 0.000 Nucleated RBC % (auto) 0.0 Sodium Potassium Chloride Carbon Dioxide Anion Gap BUN Creatinine Estim Creat Clear Calc Estimated GFR Random Glucose Calcium Ferritin Total Bilirubin Direct Bilirubin AST ALT Alkaline Phosphatase Troponin I High Sens Total Protein Albumin Triglycerides 65 Lipase COVID-19 (CLOTILDE) Negative COVID-19 Clin Com See Note 11/06/21 11/07/21 11/07/21 06:23 05:40 05:40 WBC 4.9 RBC 3.66 L Hgb 9.1 L Hct 29.4 L MCV 80.3 MCH 24.9 L MCHC 31.0 RDW 15.8 Plt Count 232 MPV 11.0 Immature Gran % (Auto) 0.2 Neut % (Auto) 56.2 Lymph % (Auto) 29.4 [place] % (Auto) 13.2 H Eos % (Auto) 0.6 Baso % (Auto) 0.4 Lymph # (Auto) 1.5 [place] # (Auto) 0.7 Eos # (Auto) 0.0 Baso # (Auto) 0.0 Abs Immat Gran (auto) 0.01 Absolute Neuts (auto) 2.8 Absolute Nucleated RBC 0.000 Nucleated RBC % (auto) 0.0 Sodium 138 139 Potassium 4.4 4.2 Chloride 109 H 109 H Carbon Dioxide 25 28 Anion Gap 8 L 6 L BUN 7 L 6 L Creatinine 0.61 0.64 Estim Creat Clear Calc 95.2 90.8 Estimated GFR > 60 > 60 Random Glucose 110 93 Calcium 8.4 8.3 L Ferritin 26 Total Bilirubin Direct Bilirubin AST ALT Alkaline Phosphatase Troponin I High Sens Total Protein Albumin Triglycerides Lipase 42 COVID-19 (CLOTILDE) COVID-19 Clin Com Airway Mallampati Class: II TM Dist: >3cm Neck ROM: Full Loose/Missing/Broken Teeth: No Heart: RRR Lungs: CTA Assessment and Plan Assessment Anesthesia Assessment: Anesthesia Plan Discussed and Chart Reviewed Final Anesthetic Review History of Problems with Anesthesia: No NPO: Yes ASA Class: II Final Preanesthetic Review: Meds/Allgs Chart Reviewed, Consent Obtained/Reviewed and Anes Risks/Benef Reviewed Patient Risk: Low Procedure Risk: Low Anesthetic Plan Anesthetic Plan: MAC: Disposition: Standard PACU
--- NOTE | 2021-11-08 14:42 | PM.OP ---
Brief Operative Note Date of Service: 11/08/21 Pre-op diagnosis: abdominal pain Post-op diagnosis: same Procedure: see op note Surgeon: Edgar Maldonado MD Anesthesia: MAC Was an Lay Ups Assembler used for this Procedure?: No Estimated blood loss (mL): 0 Condition: stable Disposition: PACU
--- NOTE | 2021-11-08 14:43 | W.PM.OPN ---
Operative Note Operative Note Date of Service: 11/08/21 Narrative: Procedure Description: EGD FLEXIBLE TRANSORAL UPPER GASTROINTESTINAL ENDOSCOPY UPPER ENDOSCOPY Consent: Indications for the procedure and potential complications of bleeding, perforation, reaction to medications and missed diagnosis were discussed with the patient and informed consent was obtained. Instrument: Olympus GIF H 190 J mid size upper endoscope Monitoring: Vital signs and clinical assessment, continuous EKG monitoring, Pulse oximetry, Carbon Dioxide monitoring and blood pressure monitoring were done throughout the procedure. Procedure: The patient was placed in the left lateral decubitis position and pre-procedure medications were administered and a bite block was placed. The endoscope was inserted into the mouth and advanced under direct vision to the third part of duodenum. A careful inspection was made as the upper endoscope was withdrawn including a retroflexed examination of the proximal stomach; Findings and interventions are described below. Hx of gastric bypass Findings: Larynx:normal Esophagus: GE junction at 35 cm, diaphragm hiatus at 35 cm, no varices or esophagitis, slightly lax LES. Stomach pouch: Patchy gastric erythema. Biopsies were obtained. Grade 2 flap valve on retroflexed examination of the cardia. There was mild inflammation around the anastomosis, bx taken from the pouch and anastomosis in separate jars. There was a retained staple which was removed, there was a lot of oozing of blood so x 2 clips applied. in general she seemed to bleed v easily. jejunum: Normal, bx taken Intervention: Biopsies as noted above, removal of staple Impression/Findings: mild gastritis removal of retained staple easy bleeding PLAN: await path if pain persists then MRI of pancreas can try a PPI (open capsule and mix with apple sauce) or use zegrid or prevacid ODT consider platelet studies and checking for VW factor studies due to hx of menorrhagia
--- NOTE | 2021-11-08 15:07 | P.PNIM_ITS ---
Subjective Subjective Date of Service: 11/09/21 Interval History: NPO today, scheduled for upper endoscopy, no acute events overnight denies abdominal pain, no nausea, no vomiting, no hematemesis or melena. Review of Systems Review of Systems: Yes all other systems are reviewed and are negative Physical Exam Verdana 4l Vital Signs: Verdana 4d Verdana 4d Vital Signs: Verdana 4d Verdana 4Bd Last Vital Signs Verdana 4d Senior Data Analyst New 4d Senior Data Analyst New 4d Temp 98.1 F 11/08/21 13:13 Senior Data Analyst New 4d Pulse 56 11/08/21 13:13 Senior Data Analyst New 4d Resp 16 11/08/21 13:13 BP 169/71 H 11/08/21 13:13 Pulse Ox 98 11/08/21 13:13 BMI result Body Mass Index 26.4 Const: Other: General? no acute distress.? Neck? supple no JVD. CVS? regular rate rhythm, Respiratory lungs clear to auscultation, no respiratory distress Gastrointestinal abdomen soft,?no epigastric tenderness, bowel sounds audible, no guarding , no rigidity. Extremities no? edema. Neuro nonfocal . Skin no rash psych appropriate affect Objective Data Active Medications Acetaminophen (Acetaminophen 325 Mg Tablet) 650 mg PO Q6H PRN PRN Reason: Pain, Mild (Pain Scale 1-3) Last Admin: 11/06/21 15:46 Dose: 650 mg Documented by: ZULMA Albuterol Sulfate (Albuterol Sulfate 90 Mcg 8 Gm Inhaler) 2 puff INHALE RQ4H PRN PRN Reason: Shortness of Breath/Wheezing Enoxaparin Sodium (Enoxaparin Sodium 40 Mg/0.4 Ml Syringe) 40 mg SUBCUT Q24H [facility] Last Admin: 11/08/21 10:52 Dose: 40 mg Documented by: AAMIR Famotidine (Famotidine/Pf 20 Mg/2 Ml Vial) 20 mg IVPUSH BID [facility] Last Admin: 11/08/21 10:53 Dose: 20 mg Documented by: AAMIR Hydromorphone HCl (Hydromorphone Hcl 1 Mg/Ml Syringe) 0.5 mg IVPUSH Q4H PRN; Protocol PRN Reason: Pain, Severe (Pain Scale 7-10) Last Admin: 11/06/21 21:36 Dose: 0.5 mg Documented by: FREDI Lactated Ringer's (Lr) 1,000 mls @ 100 mls/hr IVCONT .Q10H [facility] Last Admin: 11/08/21 10:52 Dose: 200 mls/hr Documented by: AAMIR Morphine Sulfate (Morphine Sulfate 4 Mg/Ml Cartridge) 4 mg IVPUSH Q4H PRN; Protocol PRN Reason: Pain, Severe (Pain Scale 7-10) Last Admin: 11/06/21 19:53 Dose: 4 mg Documented by: ROMEO Ondansetron HCl (Ondansetron Hcl 4 Mg/2 Ml Vial) 4 mg IVPUSH Q8H PRN PRN Reason: Nausea and Vomiting Last Admin: 11/06/21 15:47 Dose: 4 mg Documented by: ZULMA Sodium Chloride (0.9 % Sodium Chloride Flush 3 Ml Syringe) 3 ml IVFLUSH QSHIFT [facility] Last Admin: 11/08/21 07:12 Dose: Not Given Documented by: VANESSA Non-Admin Reason: IV Running Labs CBC & Chem 7: 11/09/21 10:49 11/07/21 05:40 Assessment and Plan (1) Abdominal pain: Status: Acute (2) Gastritis: Status: Acute (3) Iron deficiency anemia: Status: Acute Plan 51-year-old female patient with past medical history of asthma, status post gastric bypass, status post cholecystectomy history of gastritis presented to [facility] due to epigastric pain with radiation to back,? with nausea? and 1 episode of vomiting, no melena, no history of black stools no bright red blood per rectum in the emergency room noted to have hematocrit 32.9 low MCV 78.9 lipase of 404, normal LFTs and nl abdominal CT scan, patient admitted to hospital with a diagnosis of pancreatitis. patient admits to have heavy periods, takes NSAIDs. Epigastric pain with radiation to back ddx peptic ulcer disease / gastritis /pancreatitis Underwent upper endoscopy that showed no varices or esophagitis, but showed patchy gastric erythema, biopsies were obtained there was also mild inflammation around the anastomosis biopsies were taken there was a retained staple which was removed does lot of oozing of blood noted so 2 clips were applied diagnosis mild gastritis, easy bleeding and removal of retained staple, will treat patient with PPI, follow CBC and Von Willebrand factor studies since patient also have menorrhagia if pain persist GI recommend MRI of pancreas lipase normalized, follow CBC at a.m. resume full liquid diet, DC IV fluids, observe overnight due to oozing of blood during endoscopy Iron deficiency anemia likely due to heavy periods, Denies black stools,no melena, recommend outpatient OBGYN follow-up, strongly recommend to avoid NSAIDs, take PPI also likely some GI loss will check CBC and Von Willebrand factor, outpatient hematology follow-up asthma stable no acute exac. DVT prophylaxis:?on Lovenox disposition to home after being observed overnight due to oozing of blood during endoscopy, will repeat CBC at am. Quality Stroke Does the patient have a stroke diagnosis?: No VTE Prior VTE?: No VTE Risk Level:: Medical - moderate - high VTE Device Contraindication: Treatment Not Indicated VTE Drug Contraindication: N/A - Med Ordered
[2021-11-08] MEDS: 0.9 % Sodium Chloride Flush 3 ML SYRINGE IVFLUSH ×2 (16:55→20:44)
[2021-11-09 03:48] VITALS: BP 130/58; PULSE 60; RESP 18; TEMP 36.8; O2SAT 99
[2021-11-09 06:23] LABS: Lipase 42 U/L (8-78)
[2021-11-09 06:46] LABS: Partial Thromboplastin Time 19.8 SEC (24.1-38.0)
[2021-11-09 07:45] VITALS: BP 127/81; PULSE 67; RESP 18; TEMP 37; O2SAT 98
--- NOTE | 2021-11-09 08:40 | HO.POSTANES ---
Post Anesthesia Evaluation Post Anesthesia Evaluation Vital Signs: Vital Signs Temp Pulse Resp BP Pulse Ox 11/09/21 07:45 98.6 F 67 18 127/81 98 11/09/21 03:48 98.2 F 60 18 130/58 L 99 11/08/21 23:59 97.2 F 56 18 141/67 H 98 Anesthesia: Monitored Mental Status: Awake Pain Control: Satisfactory Nausea/Vomiting: None Hydration: Adequate Anesthesia-Related Issues: No Anes. Related Issues
[2021-11-09] MEDS: 0.9 % Sodium Chloride Flush 3 ML SYRINGE IVFLUSH ×3 (09:02→21:07)
[2021-11-09] MEDS: Pantoprazole Sodium 40 MG/10 ML VIAL IVPUSH ×2 (09:10→15:30)
[2021-11-09 11:08] LABS: MANUAL DIFF FLAG NO
[2021-11-09 11:11] LABS: Basophils Percent Auto 0.3 % (0-2); Eosinophils Percent Auto 0.2 % (0-4); Hematocrit 35.2 % (37.0-47.0); Hemoglobin 11.2 g/dl (12.0-16.0); Imm Gran Abs Auto 0.03 X10*3/uL (0.00-0.03); Imm Gran Pct Auto 0.5 % (0.0-0.4); Immature Retic Fraction 18.4 % (3.0-15.9); Lymphocytes Absolute Auto 1.6 X10*3/uL (1.2-4.9); Lymphocytes Percent Auto 24.7 % (20-40); Mean Corpuscular HGB Conc 31.8 g/dl (31.0-35.0); Mean Corpuscular Hemoglobin 24.6 pg (27.0-33.0); Mean Corpuscular Volume 77.4 fL (80.0-98.0); Mean Platelet Volume 10.6 fL (9.4-12.3); Monocytes Absolute Auto 0.7 X10*3/uL (0.1-1.2); Monocytes Percent Auto 10.1 % (2-11); Neutrophils Absolute Auto 4.1 x10*3/uL (2.0-8.3); Neutrophils Percent Auto 64.2 % (45-73); Red Blood Count 4.55 X10*6/uL (4.20-5.50); Red Cell Distribution Width 15.7 % (11.0-16.0); Retic HGB Equivalent 29.8 pg (30.0-35.0); Reticulocyte Percent 0.8 % (0.5-1.8); Reticulocytes Absolute 0.036 X10*6/uL (0.026-0.095); White Blood Count 6.4 X10*3/uL (4.8-10.8)
[2021-11-09] MEDS: Sodium Ferric Gluconat/Sucrose 125 MG in 0.9 % Sodium Chloride 100 ML 100 MG IV (11:18)
[2021-11-09 11:23] LABS: Fibrinogen 610 MG/DL (259-690)
[2021-11-09 11:25] LABS: Platelet Count 261 X10*3/uL (160-400)
[2021-11-09 11:28] LABS: Lactate Dehydrogenase 179 U/L (122-220)
[2021-11-09 12:00] VITALS: RESP 18
[2021-11-09] MEDS: iohexoL 350 MG/ML 100 ML INFUS..BTL IV (13:30)
[2021-11-09 14:12] VITALS: O2SAT 100
--- NOTE | 2021-11-09 15:20 | P.PNIM_ITS ---
Subjective Subjective Date of Service: 11/10/21 Interval History: patient complained of severe epigastric pain this morning worse after eating denies nausea, vomiting, no melena, no heavy periods ,labs showed significant drop in hematocrit, and platelet count, denies fever chills, no rash, no other musculoskeletal pain, no other acute issues overnight Review of Systems Review of Systems: Yes all other systems are reviewed and are negative Physical Exam Verdana 4l Vital Signs: Verdana 4d Verdana 4d Vital Signs: Verdana 4d Verdana 4Bd Last Vital Signs Verdana 4d Sleep Tech New 4d Sleep Tech New 4d Temp 98.6 F 11/09/21 07:45 Sleep Tech New 4d Pulse 67 11/09/21 07:45 Sleep Tech New 4d Resp 18 11/09/21 12:00 BP 127/81 11/09/21 07:45 Pulse Ox 100 11/09/21 14:12 BMI result Body Mass Index 26.4 Const: Other: General? no acute distress.? Neck? supple no JVD. CVS? regular rate rhythm, Respiratory lungs clear to auscultation, no respiratory distress Gastrointestinal abdomen soft, non distended, epigastric tenderness, bowel sounds audible, no guarding , no rigidity. Extremities no? edema. Neuro nonfocal . Skin no rash psych appropriate affect Objective Data Active Medications Acetaminophen (Acetaminophen 325 Mg Tablet) 650 mg PO Q6H PRN PRN Reason: Pain, Mild (Pain Scale 1-3) Last Admin: 11/06/21 15:46 Dose: 650 mg Documented by: ZULMA Albuterol Sulfate (Albuterol Sulfate 90 Mcg 8 Gm Inhaler) 2 puff INHALE RQ4H PRN PRN Reason: Shortness of Breath/Wheezing Ferric Sodium Gluconate Complex 125 mg/ Sodium Chloride 110 mls @ 100 mls/hr IV DAILY JIMENEZ Stop: 11/11/21 10:05 Last Infusion: 11/09/21 12:30 Dose: 0 mls/hr Documented by: TIERNEY Morphine Sulfate (Morphine Sulfate 4 Mg/Ml Cartridge) 4 mg IVPUSH Q4H PRN; Protocol PRN Reason: Pain, Severe (Pain Scale 7-10) Last Admin: 11/06/21 19:53 Dose: 4 mg Documented by: ROMEO Ondansetron HCl (Ondansetron Hcl 4 Mg/2 Ml Vial) 4 mg IVPUSH Q8H PRN PRN Reason: Nausea and Vomiting Last Admin: 11/06/21 15:47 Dose: 4 mg Documented by: ZULMA Pantoprazole Sodium (Pantoprazole Sodium 40 Mg/10 Ml Vial) 40 mg IVPUSH BID@0630,1630 [facility] Last Admin: 11/09/21 09:10 Dose: 40 mg Documented by: TIERNEY Sodium Chloride (0.9 % Sodium Chloride Flush 3 Ml Syringe) 3 ml IVFLUSH QSHIFT [facility] Last Admin: 11/09/21 09:02 Dose: 3 ml Documented by: TIERNEY Sucralfate (Sucralfate 1 Gm Tablet) 1 gm PO QIDACHS [facility] Labs CBC & Chem 7: 11/10/21 05:31 11/07/21 05:40 Labs: Laboratory Results - last 24 hr 11/09/21 11/09/21 11/09/21 05:50 05:50 05:51 MCV TNP MCH TNP MCHC TNP RDW TNP Plt Count TNP MPV TNP Immature Gran % (Auto) Neut % (Auto) Lymph % (Auto) Centre % (Auto) Eos % (Auto) Baso % (Auto) Lymph # (Auto) Centre # (Auto) Eos # (Auto) Baso # (Auto) Abs Immat Gran (auto) Absolute Neuts (auto) Absolute Nucleated RBC TNP Nucleated RBC % (auto) TNP Absolute Retic Percent Retic Immature Retic Fraction Retic Hgb Equivalent APTT 19.8 L Fibrinogen Lactate Dehydrogenase Lipase 42 11/09/21 11/09/21 11/09/21 10:49 10:49 10:49 MCV MCH MCHC RDW Plt Count MPV Immature Gran % (Auto) Neut % (Auto) Lymph % (Auto) Centre % (Auto) Eos % (Auto) Baso % (Auto) Lymph # (Auto) Centre # (Auto) Eos # (Auto) Baso # (Auto) Abs Immat Gran (auto) Absolute Neuts (auto) Absolute Nucleated RBC Nucleated RBC % (auto) Absolute Retic 0.036 Percent Retic 0.8 Immature Retic Fraction 18.4 H Retic Hgb Equivalent 29.8 L APTT Fibrinogen 610 Lactate Dehydrogenase 179 Lipase 11/09/21 10:49 MCV 77.4 L MCH 24.6 L MCHC 31.8 RDW 15.7 Plt Count 261 MPV 10.6 Immature Gran % (Auto) 0.5 H Neut % (Auto) 64.2 Lymph % (Auto) 24.7 Centre % (Auto) 10.1 Eos % (Auto) 0.2 Baso % (Auto) 0.3 Lymph # (Auto) 1.6 Centre # (Auto) 0.7 Eos # (Auto) 0.0 Baso # (Auto) 0.0 Abs Immat Gran (auto) 0.03 Absolute Neuts (auto) 4.1 Absolute Nucleated RBC 0.000 Nucleated RBC % (auto) 0.0 Absolute Retic Percent Retic Immature Retic Fraction Retic Hgb Equivalent APTT Fibrinogen Lactate Dehydrogenase Lipase Assessment and Plan (1) Abdominal pain: Status: Acute (2) Gastritis: Status: Acute (3) Iron deficiency anemia: Status: Acute Plan 51-year-old female patient with past medical history of asthma, status post gastric bypass, status post cholecystectomy history of gastritis presented to [facility] due to epigastric pain with radiation to back,? with nausea? and 1 episode of vomiting, no melena, no history of black stools no bright red blood per rectum in the emergency room noted to have hematocrit 32.9 low MCV 78.9 lipase of 404, normal LFTs and nl abdominal CT scan, patient admitted to hospital with a diagnosis of pancreatitis. patient admits to have heavy periods, takes NSAIDs. Epigastric pain with radiation to back ddx peptic ulcer disease / gastritis / less likely pancreatitis complaining of significant epigastric pain this am worse after eating couple bites of breakfast denies nausea vomiting hematemesis or melena Underwent upper endoscopy 11/08/21 that showed no varices or esophagitis, but sh owed patchy gastric erythema, biopsies were obtained there was also mild inflammation around the anastomosis biopsies were taken there was a retained staple which was removed does lot of oozing of blood noted so 2 clips were applied due to worsening epigastric pain will obtain CT abdomen rule out gastric perforation/ pancreatitis will place patient on intravenous Protonix, keep her NPO, rediscuss case with Dr. Paige ,he will re-evaluate patient follow CBC and Von Willebrand factor lipase normalized, follow labs at a.m. Thrombocytopenia noted to have significant drop in platelet count, patient receive Lovenox but was stopped yesterday will order hit workup/ ask lab to recheck CBC and peripheral smear question clumping acute on chronic iron deficiency anemia no active GI bleed noted, no heavy periods no hematemesis or melena noted will give IV iron follow CBC and clinical course question has underlying bleeding disorder follow von Willebrand factor PTT, stool guaiac and ordered hemolysis workup asthma stable no acute exac. DVT prophylaxis:? compression boots disposition to home, will observe overnight due to drop in hematocrit and worsening epigastric pain continue IV Protonix drip, follow CT abdomen. Quality Stroke Does the patient have a stroke diagnosis?: No VTE Prior VTE?: No VTE Risk Level:: Medical - moderate - high VTE Device Contraindication: Treatment Not Indicated VTE Drug Contraindication: N/A - Med Ordered
[2021-11-09] MEDS: Sucralfate 1 GM TABLET PO ×2 (15:29→21:07)
[2021-11-09 15:40] VITALS: BP 138/98; PULSE 68; RESP 18; TEMP 36.8; O2SAT 98
[2021-11-09 19:07] VITALS: BP 133/79; PULSE 91; RESP 18; TEMP 37.1; O2SAT 99
[2021-11-10] VITALS: BP 139/79; PULSE 67; RESP 18; TEMP 37; O2SAT 97
[2021-11-10 04:00] VITALS: BP 111/61; PULSE 51; RESP 18; TEMP 36.9; O2SAT 100
[2021-11-10 05:50] LABS: Hematocrit 33.9 % (37.0-47.0); Hemoglobin 10.6 g/dl (12.0-16.0); Mean Corpuscular HGB Conc 31.3 g/dl (31.0-35.0); Mean Corpuscular Hemoglobin 24.3 pg (27.0-33.0); Mean Corpuscular Volume 77.8 fL (80.0-98.0); Mean Platelet Volume 10.9 fL (9.4-12.3); Platelet Count 255 X10*3/uL (160-400); Red Blood Count 4.36 X10*6/uL (4.20-5.50); Red Cell Distribution Width 15.7 % (11.0-16.0); White Blood Count 5.9 X10*3/uL (4.8-10.8)
[2021-11-10] MEDS: Sucralfate 1 GM TABLET PO (06:24)
[2021-11-10] MEDS: Pantoprazole Sodium 40 MG/10 ML VIAL IVPUSH (06:24)
[2021-11-10 07:39] VITALS: BP 114/66; PULSE 57; RESP 18; TEMP 37; O2SAT 96
--- NOTE | 2021-11-10 08:17 | MHC.CM.PN ---
PATIENT IS DISCHARGED HOME TODAY - SELF CARE HER CAR IS IN THE LOT. RN AWARE OF PLAN.
[2021-11-10] MEDS: 0.9 % Sodium Chloride Flush 3 ML SYRINGE IVFLUSH (09:13)
--- NOTE | 2021-11-10 09:35 | P.DS_ITS ---
DS: Providers Provider Date of Service: 11/10/21 Date of admission: 11/06/21 02:01 Primary care physician: Ronny Lan MD Consults: 11/06/21 10:18 Consult to Gastroenterology Routine Consulting Provider: Abraham John Reason for consultation: gastritis anemia/elevated lipase Has provider been notified: No DS: Diagnosis Discharge Diagnosis (1) Abdominal pain: Status: Acute (2) Gastritis: Status: Acute (3) Iron deficiency anemia: Status: Acute DS: Summary Hospital Course Hospital Course: Chief Complaint: Abdominal pain This is a 51-year-old female with past medical history of asthma presents to the hospital with complaints of epigastric abdominal pain.? Patient reports that the pain started 2 days ago, 07/16, radiating to the back, constant, worse with eating, associated with nausea and 1 episode of vomiting, relieved with bending over, no diarrhea constipation, no urinary symptoms and no lower extremity edema.? She has no headache or change in vision, known with numbness weakness or tingling.? Arrival to the ED patient hemodynamically stable with no significant abnormal vitals Labs are significant for WBC count of 7.9, hemoglobin of 10.3, hematocrit 32.9, MCV of 78.9, lipase of 404, no elevated AST ALT alk-phos, and abdominal pelvic CT showed normal pancreas and no gallbladder disease.? Patient will be admitted for further management of pancreatitis hospital course 51-year-old female patient with past medical history of asthma, status post gastric bypass, status post cholecystectomy history of gastritis presented to [facility] due to epigastric pain with radiation to back,? with nausea? and 1 episode of vomiting, no melena, no history of black stools no bright red blood per rectum in the emergency room noted to have hematocrit 32.9 low MCV 78.9 lipase of 404, normal LFTs and nl abdominal CT scan, patient admitted to hospital with a diagnosis abdominal pain with broad differential including gastritis, peptic ulcer disease and pancreatitis, patient was made NPO placed on IV fluid, IV Pepcid, iron studies came back positive for iron deficiency anemia with history of heavy periods, subsequently patient underwent upper endoscopy on November 08 that showed no varices or esophagitis but showed patchy gastric erythema consistent with gastritis, biopsies were obtained there was also mild inflammation around anastomosis, and a retained staple which was removed patient was noted to have oozing of blood therefore 2 clips were applied post procedure next day patient complained of worsening abdominal pain therefore CT abdomen was obtained that showed no acute abnormality. Patient repeat CBC showed low platelet count of 60,000 and a low hematocrit, heparin-induced thrombocytopenia workup was initiated but a repeat CBC same day was normal likely it was due to clumping therefore platelets were low, subsequently patient abdominal pain resolved her diet has been advanced she has been transitioned to by mouth Prilosec twice daily and Carafate she has been strongly advised to avoid NSAIDs. in regard to elevated lipase patient abdominal CT showed no evidence of pancreatitis likely elevated lipase related to gastritis repeat lipase normalized. Iron deficiency anemia likely related to heavy periods and some blood loss from gastritis patient has been recommended to have outpatient follow-up with OBGYN she has been placed on Prilosec and iron supplement asthma stable no acute exac. Time Spent with Patient Time attestation: Total time spent providing and/or coordinating discharge services: Discharge coordination time: Greater than 30 minutes Quality: Stroke Does the patient have a stroke diagnosis?: No Physical Exam Verdana 4l Vital Signs: Verdana 4d Verdana 4d Vital Signs: Verdana 4d Verdana 4Bd Last Vital Signs Verdana 4d Quality Control Projectionist New 4d Quality Control Projectionist New 4d Temp 98.6 F 11/10/21 07:39 Quality Control Projectionist New 4d Pulse 57 11/10/21 07:39 Quality Control Projectionist New 4d Resp 18 11/10/21 07:39 BP 114/66 11/10/21 07:39 Pulse Ox 96 11/10/21 07:39 BMI result Body Mass Index 26.4 Const: Other: General? no acute distress.? Neck? supple no JVD. CVS? regular rate rhythm, Respiratory lungs clear to auscultation, no respiratory distress Gastrointestinal abdomen soft, non distended, epigastric tenderness, bowel sounds audible, no guarding , no rigidity. Extremities no? edema. Neuro nonfocal . Skin no rash psych appropriate affect DS: Data Data Completed and Pending Pending studies at discharge: Pending at discharge 11/08/21 14:55 Surgical [PTH] Routine Labs on day of discharge: Laboratory Results - last 24 hr 11/09/21 11/09/21 11/09/21 05:51 10:49 10:49 WBC TNP RBC TNP Hgb TNP Hct TNP MCV TNP MCH TNP MCHC TNP RDW TNP Plt Count TNP MPV TNP Immature Gran % (Auto) Neut % (Auto) Lymph % (Auto) Luna % (Auto) Eos % (Auto) Baso % (Auto) Lymph # (Auto) Luna # (Auto) Eos # (Auto) Baso # (Auto) Abs Immat Gran (auto) Absolute Neuts (auto) Absolute Nucleated RBC TNP Nucleated RBC % (auto) TNP Absolute Retic 0.036 Percent Retic 0.8 Immature Retic Fraction 18.4 H Retic Hgb Equivalent 29.8 L Fibrinogen 610 Lactate Dehydrogenase 11/09/21 11/09/21 11/10/21 10:49 10:49 05:31 WBC 6.4 5.9 RBC 4.55 D 4.36 Hgb 11.2 L D 10.6 L Hct 35.2 L 33.9 L MCV 77.4 L 77.8 L MCH 24.6 L 24.3 L MCHC 31.8 31.3 RDW 15.7 15.7 Plt Count 261 255 MPV 10.6 10.9 Immature Gran % (Auto) 0.5 H Neut % (Auto) 64.2 Lymph % (Auto) 24.7 Luna % (Auto) 10.1 Eos % (Auto) 0.2 Baso % (Auto) 0.3 Lymph # (Auto) 1.6 Luna # (Auto) 0.7 Eos # (Auto) 0.0 Baso # (Auto) 0.0 Abs Immat Gran (auto) 0.03 Absolute Neuts (auto) 4.1 Absolute Nucleated RBC 0.000 0.000 Nucleated RBC % (auto) 0.0 0.0 Absolute Retic Percent Retic Immature Retic Fraction Retic Hgb Equivalent Fibrinogen Lactate Dehydrogenase 179 Discharge Plan Discharge Patient Disposition: Home, Self-Care Discharge Diagnosis: Abdominal pain acute gastritis iron deficiency anemia elevated lipase Referrals: Ronny Lan MD [Primary Care Provider] - 1 Week Discharge Medications: New sucralfate 1 gram Tablet 1 g PO QIDACHS Qty: 120 0RF omeprazole 40 mg Capsule,Delayed Release(Dr/Ec) 40 mg PO BID@0630,1630 Qty: 60 0RF ferrous sulfate 325 mg (65 mg iron) tablet 325 mg PO DAILY Qty: 30 0RF Continued albuterol sulfate [ProAir HFA] 90 mcg/actuation HFA aerosol inhaler 1 inh inhalation QID PRN (Reason: shortness of breath or wheezing) 30 Days Qty: 8.5 5RF Discontinued ibuprofen 200 mg Tablet 400 mg PO Q6H PRN (Reason: Pain) 0RF Discharge Orders: Discharge Order (Routine); Ordered 11/10/21 Ordered By: Manuel Piper Diet: advance to usual diet Activity on Discharge: As tolerated Stand Alone Forms: Patient Portal Discharge page Care Plan Goals: abd pain due to gastritis take protonix and carafate ,take iron supplements for iron deficiency ,no nsaids like asa,advil and follow up with GI and obgyn Health Concerns: iron deficiency anemia with heavy periods follow-up with OBGYN asthma stable continue home inhalers Plan of Treatment: outpatient follow-up with primary care physician in 1-[address] Paige, call to make an appointment in 2-4 weeks Assessment: per discharge summary.
[2021-11-10 12:11] LABS: HIT-Patient Optical Density 0.036 OD UNITS (<OR= 0.300); Heparin Induced Plt Ab NEGATIVE (NEGATIVE)
[2021-11-10 13:07] LABS: Transglutaminase IgA <1.0 U/mL
[2021-11-10 21:07] LABS: Haptoglobin 219 mg/dL (43-212)
[2021-11-15 16:11] LABS: Factor VIII Activity Clotting 417 % normal (50-180); PTT, Activated 20 sec (23-32); Ristocetin Cofactor 166 % normal (42-200)
== END 2021-11-10 10:45 | disposition home or self-care (01) | DRG 282 ==
LOC: HO.ED 11-06 01:42 → HO.EDOVER 11-06 05:34 → HO.S3 11-06 20:01
PROVIDERS: Internal Medicine Gastroenterology; Internal Medicine Medical Oncology; Admitting Provider Internal Medicine; Emergency Provider Internal Medicine; PCP Internal Medicine; Visit Provider Hospitalist
PROC: 0DJ08ZZ Inspection of Upper Intestinal Tract, Via Natural or Artificial Opening Endoscopic (ICD-10-PCS; CPT 43235; principal; 2021-11-08 14:50)
DX: K85.90 Acute pancreatitis without necrosis or infection, unspecified (principal); D50.0 Iron deficiency anemia secondary to blood loss (chronic); N92.0 Excessive and frequent menstruation with regular cycle; J45.909 Unspecified asthma, uncomplicated; Z20.822 Contact with and (suspected) exposure to COVID-19; Z98.84 Bariatric surgery status; Z79.899 Other long term (current) drug therapy
CPT/HCPCS: 43239; 43247; 36415; 74177; 76705; 80048; 80076; 82728; 83010; 83615; 83690; 84478; 84484; 85025; 85027; 85045; 85240; 85245; 85246; 85247; 85384; 85730; 86022; 86364; 87635; 88305; 88342; 93005; 96361; 96374; 96375; 99218; 99285; J1170; J1650; J2270; J2405; J2916; Q9967

== ENCOUNTER 2021-11-23 15:04 | Outpatient (REF) | payer OTHER, SELFPAY ==
[2021-11-24 11:07] LABS: CT PCR NOT DETECTED (Not Detect.); NG PCR NOT DETECTED (Not Detect.)
[2021-11-24 12:25] LABS: BV Int Neg Control Negative (Negative); BV Int Pos Control Positive (Positive)
== END 2021-11-23 15:05 | disposition home or self-care (01) ==
LOC: HO.LAB 15:04
PROVIDERS: PCP Internal Medicine; Visit Provider Advanced Practice Midwife
DX: Z01.411 Encounter for gynecological examination (general) (routine) with abnormal findings (principal); N92.0 Excessive and frequent menstruation with regular cycle
CPT/HCPCS: 87480; 87491; 87510; 87591; 87660

== ENCOUNTER 2021-12-06 15:15 | Outpatient (REF) | payer OTHER, SELFPAY ==
--- NOTE | ~2021-12-06 | US_ITS ---
EXAMINATION: US PELVIS, LIMITED/FOLLOW UP CLINICAL INFORMATION: Excessive and frequent menstruation with irregularity. COMPARISON: CT abdomen and pelvis 11/09/2021. TECHNIQUE: Transabdominal imaging of pelvis is performed. FINDINGS: The uterus is anteverted measuring 8.0 cm in length, 4.6 cm in AP and 5.4 cm in transverse dimension. There is a hypoechoic lesion in the anterior mid body of uterus measuring 1.0 x 1.0 x 1.4 cm. This was visualized on the CT abdomen exam performed recently. No additional lesions seen. The endometrial thickness is 1.3 cm. Right ovary measures 2.34 x 1.95 x 2.40 cm and volume 5.72 mL. It appears unremarkable. Left ovary measures 1.6 x 1.3 x 1.7 cm and volume 1.85 mL. It appears unremarkable. There is no free fluid seen in the cul-de-sac. US/US pelvic limited IMPRESSION: Small uterine fibroid. Otherwise unremarkable ovaries.
== END 2021-12-06 15:16 | disposition home or self-care (01) ==
LOC: HO.HMGCX 15:15
PROVIDERS: PCP Internal Medicine; Visit Provider Advanced Practice Midwife
DX: N92.0 Excessive and frequent menstruation with regular cycle (principal)
CPT/HCPCS: 76857

== ENCOUNTER 2022-01-03 08:57 | Outpatient (REF) | payer OTHER, SELFPAY ==
[2022-01-09 05:01] LABS: HPV 16 RNA NOT DETECTED (NOT DETECTED); HPV mRNA E6/E7 rflx Detected (Not Detected)
== END 2022-01-03 08:58 | disposition home or self-care (01) ==
LOC: HO.LAB 08:57
PROVIDERS: PCP Internal Medicine; Visit Provider Advanced Practice Midwife
DX: N92.0 Excessive and frequent menstruation with regular cycle (principal); N94.6 Dysmenorrhea, unspecified; Z32.00 Encounter for pregnancy test, result unknown
CPT/HCPCS: 58100; 81025; 87624; 87625; 88142; 88305

== ENCOUNTER → 2022-01-17 16:04 | Outpatient (BNVA) | payer OTHER, SELFPAY | PROVIDERS: PCP Internal Medicine; Visit Provider Advanced Practice Midwife | DX: Z13.89 Encounter for screening for other disorder (principal) ==

== ENCOUNTER 2022-02-13 10:06 | Emergency (ER) | payer OTHER, SELFPAY ==
[2022-02-13 10:33] VITALS: BP 155/71; PULSE 59; RESP 18; TEMP 36.6; O2SAT 99; BMI 29.2
--- NOTE | 2022-02-13 10:52 | ED_ITS ---
HPI - Abdominal Pain General Chief Complaint: Abdominal Pain Stated Complaint: Abd pain/back pain Time Seen by Provider: 02/13/22 10:52 Source: patient Mode of arrival: ambulatory Limitations: no limitations History of Present Illness HPI narrative: epigastric pain going to the back starting 2 hours ago. Patient has pancreatitis. Patient has had a cholecystectomy. patient has a history of gastritis Onset (ago): hour(s) Pain Consistency: constant Severity: moderate Quality: aching Migration to: other (back) Associated symptoms: nausea Related Data Previous Rx's Medication Instructions Recorded ferrous sulfate 325 mg (65 mg 325 mg PO DAILY #30 tab 11/10/21 iron) tablet sucralfate 1 gram tablet 1 g PO QIDACHS #120 tab 11/10/21 lansoprazole 30 mg capsule,delayed 30 mg PO DAILY 30 Days #30 cap 12/26/21 release (Prevacid) pantoprazole 40 mg tablet,delayed 40 mg PO DAILY #20 tab 02/13/22 release (Protonix) Allergies Allergy/AdvReac Type Severity Reaction Status Date / Time No Known Allergies Allergy Verified 01/17/22 16:04 [No Known Allergies*] Review of Systems Constitutional: Reports no additional constitutional complaints Eyes: Reports no additional eye complaints Denies dizziness Cardiovascular: Reports no additional cardiovascular complaints Respiratory: Reports as per HPI Gastrointestinal: Reports no additional gastrointestinal complaints Genitourinary: Reports no additional female genitourinary complaints Musculoskeletal: Reports no additional musculoskeletal complaints Skin/Breast: Denies rash Reports system reviewed and no additional complaints, except as documented, Denies dizziness and Denies Sensory deficit (Neuro) Psychiatric: Denies anxiety PMFSH Past Medical History Medical History Abdominal pain ZHOU positive Asthma Gastritis Left sided abdominal pain Overweight (BMI 25.0-29.9) Varicose veins of bilateral lower extremities with pain Surgical History H/O gastric bypass (~2018) H/O tubal ligation Hx of cholecystectomy (~2014) Status post laser ablation of incompetent vein Family History Family History Father HTN (hypertension) Diabetes mellitus Mother HTN (hypertension) Diabetes mellitus Asthma Brother No problems noted. Brother No problems noted. Brother No problems noted. Brother No problems noted. Sister No problems noted. Daughter No problems noted. Son No problems noted. Son No problems noted. Paternal Aunt Breast cancer Family/Other Colon cancer Maternal Aunt Ovarian cancer Social History Social History Household Members: Significant Other Housing: Apartment Do you presently have visiting nurse or other home services: No Alcohol intake: never Patient Tobacco Use Status: Never used Tobacco Second Hand Smoke Exposure: No Advance Directives: No Advance Directives Information Provided: No Patient : No service: No Current occupational status: employed Physical Exam ED Vital Signs: Vital Signs - 24 hr 02/13/22 10:33 02/13/22 12:19 Temperature 97.9 F 98.6 F Pulse Rate 59 58 Respiratory Rate 18 16 Blood Pressure 155/71 H 133/79 Pulse Oximetry 99 100 BMI result Body Mass Index 29.2 Const General: healthy appearing Nutritional Appearance: average body habitus Orientation/consciousness: oriented to person and patient oriented x3 Limitations: no limitations HENMT Head: Yes normal to inspection Ears: external ears normal General nose exam: Normal external nose present Mouth: Normal oral and palatal mucosa present and oropharynx normal Throat: Yes posterior oropharynx normal Eyes General: appearance normal, both eyes and all related structures Neck Neck: Yes normal visual inspection Chest Chest palpation & inspection: normal inspection of the chest Resp Auscultation: clear to auscultation bilaterally Cardio Jugular venous distension: no JVD Rate: regular rate Rhythm: regular rhythm Heart sounds: S1 normal heart sound present and S2 normal heart sound present GI Inspection: Yes normal to inspection Palpation (GI): Soft to palpation, nontender and No hepatosplenomegaly present Auscultation: normal bowel sounds General: Yes no CVA tenderness Back/Spine/Pelvis Back: no CVA tenderness Skin General skin exam: no rashes or lesions noted Neuro General: oriented to person and patient oriented x3 Cranial nerves: Yes CN's II-XII intact bilaterally Motor exam (neuro): 5/5 motor strength present throughout Sensory Exam: No Sensory deficit (Neuro) Extrem General: Yes normal to inspection Psych Appearance: grossly normal Course Reevaluation(s) Reevaluation #1: Lipase slightly elevated, I don't think this is pancreatitis, this is likely gastritis will treat with protonix Time: 14:05 [facility] - Abdominal Pain Lab Data Result diagrams: 02/13/22 11:13 02/13/22 11:13 Labs: Lab Results 02/13/22 02/13/22 02/13/22 Range/Units 11:13 11:13 12:22 WBC 6.6 (4.8-10.8) X10*3/uL RBC 4.33 (4.20-5.50) X10*6/uL Hgb 10.9 L (12.0-16.0) g/dl Hct 35.3 L (37.0-47.0) % MCV 81.5 (80.0-98.0) fL MCH 25.2 L (27.0-33.0) pg MCHC 30.9 L (31.0-35.0) g/dl RDW 15.4 (11.0-16.0) % Plt Count 256 (160-400) X10*3/uL MPV 10.0 (9.4-12.3) fL Immature Gran % (Auto) 0.3 (0.0-0.4) % Neut % (Auto) 72.0 (45-73) % Lymph % (Auto) 19.9 L (20-40) % Carbon % (Auto) 7.3 (2-11) % Eos % (Auto) 0.2 (0-4) % Baso % (Auto) 0.3 (0-2) % Lymph # (Auto) 1.3 (1.2-4.9) X10*3/uL Carbon # (Auto) 0.5 (0.1-1.2) X10*3/uL Eos # (Auto) 0.0 (0.0-0.4) X10*3/uL Baso # (Auto) 0.0 (0.0-0.2) X10*3/uL Abs Immat Gran (auto) 0.02 (0.00-0.03) X10*3/uL Absolute Neuts (auto) 4.7 (2.0-8.3) x10*3/uL Absolute Nucleated RBC 0.000 (0.0-0.012) X10*3/uL Nucleated RBC % (auto) 0.0 (0.0-0.2) /100WBC Sodium 139 (135-145) mmol/L Potassium 4.0 (3.3-5.1) mmol/L Chloride 108 (96-108) mmol/L Carbon Dioxide 26 (22-29) mmol/L Anion Gap 9 L (12-20) BUN 12 D (9-16) mg/dL Creatinine 0.71 (0.5-1.4) mg/dL Estim Creat Clear Calc 85.9 Estimated GFR > 60 Random Glucose 106 (60-115) mg/dL Calcium 8.6 (8.4-10.2) mg/dL Total Bilirubin 0.4 (0.0-1.0) mg/dL AST 18 (5-31) U/L ALT 11 (0-31) U/L Alkaline Phosphatase 57 (39-117) U/L Total Protein 6.3 L (6.5-8.0) g/dL Albumin 3.7 (3.5-5.0) g/dL Lipase 117 H (8-78) U/L Urine Test NEGATIVE (NEGATIVE) Discharge Plan Discharge Clinical Impression: Gastritis Patient Disposition: Home, Self-Care Instructions: Gastritis (ED) Prescriptions: New pantoprazole [Protonix] 40 mg tablet,delayed release (DR/EC) 40 mg PO DAILY Qty: 20 0RF No Action lansoprazole [Prevacid] 30 mg capsule,delayed release(DR/EC) 30 mg PO DAILY 30 Days Qty: 30 2RF sucralfate 1 gram Tablet 1 g PO QIDACHS Qty: 120 0RF ferrous sulfate 325 mg (65 mg iron) tablet 325 mg PO DAILY Qty: 30 0RF Referrals: Ronny Lan MD [Primary Care Provider] - 5 days
[2022-02-13 11:17] LABS: MANUAL DIFF FLAG NO
[2022-02-13] MEDS: ondansetron HCL 4 MG/2 ML VIAL IVPUSH (11:23)
[2022-02-13] MEDS: Pantoprazole Sodium 40 MG/10 ML VIAL IVPUSH (11:23)
[2022-02-13 11:24] LABS: Basophils Percent Auto 0.3 % (0-2); Eosinophils Percent Auto 0.2 % (0-4); Hematocrit 35.3 % (37.0-47.0); Hemoglobin 10.9 g/dl (12.0-16.0); Imm Gran Abs Auto 0.02 X10*3/uL (0.00-0.03); Imm Gran Pct Auto 0.3 % (0.0-0.4); Lymphocytes Absolute Auto 1.3 X10*3/uL (1.2-4.9); Lymphocytes Percent Auto 19.9 % (20-40); Mean Corpuscular HGB Conc 30.9 g/dl (31.0-35.0); Mean Corpuscular Hemoglobin 25.2 pg (27.0-33.0); Mean Corpuscular Volume 81.5 fL (80.0-98.0); Monocytes Absolute Auto 0.5 X10*3/uL (0.1-1.2); Monocytes Percent Auto 7.3 % (2-11); Neutrophils Absolute Auto 4.7 x10*3/uL (2.0-8.3); Platelet Count 256 X10*3/uL (160-400); Red Blood Count 4.33 X10*6/uL (4.20-5.50); Red Cell Distribution Width 15.4 % (11.0-16.0); White Blood Count 6.6 X10*3/uL (4.8-10.8)
[2022-02-13 11:46] LABS: Alanine Aminotransferase 11 U/L (0-31); Albumin Level 3.7 g/dL (3.5-5.0); Alkaline Phosphatase 57 U/L (39-117); Anion Gap 9 (12-20); Aspartate Amino Transferase 18 U/L (5-31); Bilirubin Total 0.4 mg/dL (0.0-1.0); Blood Urea Nitrogen 12 mg/dL (9-16); Calcium 8.6 mg/dL (8.4-10.2); Carbon Dioxide 26 mmol/L (22-29); Chloride 108 mmol/L (96-108); Creatinine Clr Calc Pharmacy 85.9; Estimated Glomerular Filt Rate > 60; Glucose Random 106 mg/dL (60-115); Lipase 117 U/L (8-78); Sodium 139 mmol/L (135-145); Total Protein 6.3 g/dL (6.5-8.0)
[2022-02-13 12:19] VITALS: BP 133/79; PULSE 58; RESP 16; TEMP 37; O2SAT 100
[2022-02-13 12:39] LABS: UPreg QC Valid YES; Urine Pregnancy NEGATIVE (NEGATIVE)
== END 2022-02-13 14:21 | disposition home or self-care (01) ==
PROVIDERS: Emergency Provider Emergency Medicine; PCP Internal Medicine
DX: K29.70 Gastritis, unspecified, without bleeding (principal); K85.90 Acute pancreatitis without necrosis or infection, unspecified; M54.50 Low back pain, unspecified; R10.13 Epigastric pain; Z79.899 Other long term (current) drug therapy
CPT/HCPCS: 36415; 80053; 81025; 83690; 85025; 96374; 96375; 99284; J2405

== ENCOUNTER → 2022-02-14 13:17 | Outpatient (BNVA) | payer OTHER, SELFPAY | PROVIDERS: PCP Internal Medicine; Visit Provider Obstetrics & Gynecology | DX: Z30.433 Encounter for removal and reinsertion of intrauterine contraceptive device (principal); N92.0 Excessive and frequent menstruation with regular cycle | CPT/HCPCS: 58300; 81025; J7298 ==

== ENCOUNTER 2022-02-15 08:38 | Emergency (ER) | payer OTHER, SELFPAY ==
--- NOTE | ~2022-02-15 | CT_ITS ---
EXAMINATION: CT ABDOMEN AND PELVIS WITHOUT CONTRAST CLINICAL INFORMATION: Epigastric upper abdominal pain. COMPARISON: CT abdomen pelvis with contrast 11/09/2021. TECHNIQUE: Multidetector volumetric imaging was performed from the superior aspect of the liver through the pubic symphysis. Sagittal and coronal reformatted images were obtained on the technologist's workstation. This CT examination was performed using dose optimization techniques as appropriate, variously including the following: *Automated exposure control *Adjustment of mA and/or kV according to patient size (this includes techniques or standardized protocols for targeted exams where dose is matched to indication/reason for exam; i.e. extremities or head) *Use of iterative reconstruction technique DLP: 484 mGy-cm FINDINGS: LUNG BASES: The visualized lung bases are unremarkable. LIVER, GALLBLADDER, AND BILIARY TREE: The liver is normal in size, shape, and attenuation. No focal hepatic lesion or biliary ductal dilatation is present. The gallbladder has been surgically removed. There is mild extrahepatic ductal prominence. PANCREAS: Unremarkable. SPLEEN: Unremarkable. ADRENAL GLANDS: Unremarkable. KIDNEYS AND URETERS: The kidneys are normal in size, shape, and attenuation. No hydronephrosis, hydroureter, or calculi seen. No perinephric stranding. BLADDER: Unremarkable. GASTROINTESTINAL TRACT: There are postsurgical changes of the stomach in left upper quadrant. Visualized small bowel loops are normal caliber. Visualized colon appears unremarkable. There is mild mesenteric haziness and diffuse abnormal mesenteric lymph nodes matted within the greater omentum. The largest lymph node measures 1.6 cm on coronal image 27/5 ABDOMINAL WALL: No significant hernia is appreciated. LYMPH NODES: There are numerous mesenteric lymph nodes with the largest lymph node measuring 1.6 cm. VASCULAR: Unremarkable. PELVIC VISCERA: There is small amount of free fluid in the pelvis. The uterus is midline with IUD within the endometrial canal. OSSEOUS STRUCTURES: No aggressive lytic or sclerotic process seen. There is calcified posterior annular ligament L5-S1 disc level with underlying bulge but no spinal canal compromise. There is bilateral L5-S1 and L4-L5 facet joint arthropathy. CT/CT abdomen pelvis wo con IMPRESSION: Small amount of free fluid in the pelvis of unknown etiology. Postsurgical changes in the left upper quadrant likely gastric bypass, the previous study. There is diffuse mesenteric haziness and small mesenteric lymph nodes a new finding since the previous exam. This could be postsurgical or inflammatory changes. No bowel obstruction seen. Cholecystectomy with mild extrahepatic ductal dilation. Fleischner guidelines were followed.
[2022-02-15 09:18] VITALS: BP 170/90; PULSE 70; RESP 16; TEMP 36.8; O2SAT 100; BMI 27.3
[2022-02-15 09:59] LABS: MANUAL DIFF FLAG NO
[2022-02-15 10:06] LABS: Basophils Percent Auto 0.4 % (0-2); Eosinophils Absolute Auto 0.1 X10*3/uL (0.0-0.4); Eosinophils Percent Auto 1.1 % (0-4); Hematocrit 35.8 % (37.0-47.0); Hemoglobin 11.2 g/dl (12.0-16.0); Imm Gran Abs Auto 0.04 X10*3/uL (0.00-0.03); Imm Gran Pct Auto 0.5 % (0.0-0.4); Lymphocytes Absolute Auto 1.4 X10*3/uL (1.2-4.9); Lymphocytes Percent Auto 15.9 % (20-40); Mean Corpuscular HGB Conc 31.3 g/dl (31.0-35.0); Mean Corpuscular Hemoglobin 25.7 pg (27.0-33.0); Mean Corpuscular Volume 82.1 fL (80.0-98.0); Mean Platelet Volume 10.7 fL (9.4-12.3); Monocytes Absolute Auto 0.8 X10*3/uL (0.1-1.2); Neutrophils Absolute Auto 6.2 x10*3/uL (2.0-8.3); Neutrophils Percent Auto 73.1 % (45-73); Platelet Count 276 X10*3/uL (160-400); Red Blood Count 4.36 X10*6/uL (4.20-5.50); Red Cell Distribution Width 15.4 % (11.0-16.0); White Blood Count 8.5 X10*3/uL (4.8-10.8)
[2022-02-15 10:23] LABS: Alanine Aminotransferase 11 U/L (0-31); Albumin Level 3.7 g/dL (3.5-5.0); Alkaline Phosphatase 63 U/L (39-117); Anion Gap 10 (12-20); Aspartate Amino Transferase 16 U/L (5-31); Bilirubin Direct 0.3 mg/dL (0.0-0.5); Bilirubin Total 0.5 mg/dL (0.0-1.0); Blood Urea Nitrogen 12 mg/dL (9-16); Calcium 8.9 mg/dL (8.4-10.2); Carbon Dioxide 25 mmol/L (22-29); Chloride 107 mmol/L (96-108); Creatinine Clr Calc Pharmacy 89.5; Estimated Glomerular Filt Rate > 60; Glucose Random 90 mg/dL (60-115); Potassium 4.3 mmol/L (3.3-5.1); Sodium 138 mmol/L (135-145); Total Protein 6.4 g/dL (6.5-8.0)
--- NOTE | 2022-02-15 14:44 | ECG_ITS ---
Test Reason : EPIGASTRIC PAIN Blood Pressure : / mmHG Vent. Rate : 056 BPM Atrial Rate : 056 BPM P-R Int : 158 ms QRS Dur : 082 ms QT Int : 420 ms P-R-T Axes : 044 033 023 degrees QTc Int : 405 ms Sinus bradycardia Otherwise normal ECG When compared with ECG of 05-NOV-2021 23:32, T wave amplitude has decreased in Anterior leads Referred By: Yue Alonso Electronically Signed By:MAU BUTLER MD
[2022-02-15 15:06] LABS: Lipase 44 U/L (8-78)
[2022-02-15] MEDS: Morphine Sulfate 4 MG/ML CARTRIDGE IVPUSH (15:18)
[2022-02-15] MEDS: ondansetron HCL 4 MG/2 ML VIAL IVPUSH (15:18)
[2022-02-15 15:22] LABS: HCG Quantitative < 2 mIU/mL
[2022-02-15] MEDS: 0.9 % Sodium Chloride 1,000 ML 999 ML IV (15:22)
[2022-02-15 15:28] VITALS: BP 152/82; PULSE 52; TEMP 37.2; O2SAT 100
[2022-02-15 16:20] LABS: Troponin-I High Sensitivity < 3.5 ng/L (<3.5-17.0)
--- NOTE | 2022-02-15 16:23 | ED_ITS ---
HPI - General Adult General Chief complaint: Abdominal Pain Stated complaint: abd pain Time Seen by Provider: 02/15/22 14:29 Source: patient Mode of arrival: ambulatory Limitations: no limitations History of Present Illness HPI narrative: 51-year-old female with a history of gastric bypass in 2018 done at [facility] in [facility], history of pancreatitis and cholecystectomy presents for epigastric pain radiating to her back. Patient was seen here 2 days ago, diagnosed with gastritis, sent home. Patient states that her pain went away, it started up again yesterday, and is now worse. No vomiting, diarrhea, fevers, dysuria. Last menstrual period was February 12. States she drinks about 2 glasses of wine a day and has increased her ibuprofen use due to the pain. States the pain is 8/10 and can not eat due to the pain. States yesterday when she drank [place] she felt that it was ?burning? in her stomach. Related Data Previous Rx's Medication Instructions Recorded ferrous sulfate 325 mg (65 mg 325 mg PO DAILY #30 tab 11/10/21 iron) tablet sucralfate 1 gram tablet 1 g PO QIDACHS #120 tab 11/10/21 lansoprazole 30 mg capsule,delayed 30 mg PO DAILY 30 Days #30 cap 12/26/21 release (Prevacid) pantoprazole 40 mg tablet,delayed 40 mg PO DAILY #20 tab 02/13/22 release (Protonix) cephalexin 500 mg capsule 500 mg PO QID 5 Days #20 cap 02/15/22 Allergies Allergy/AdvReac Type Severity Reaction Status Date / Time No Known Allergies Allergy Verified 01/17/22 16:04 [No Known Allergies*] Review of Systems Constitutional: Constitutional: Denies body ache(s), Denies chills, Denies fatigue, Denies fever(s), Denies headache(s), Denies malaise and Denies weakness Eyes: Eyes: Denies diplopia ENT: Denies vertigo, Denies dizziness, Denies otalgia, Denies headache(s), Denies mouth pain, Denies post nasal drip, Denies sinus pain, Denies sinus pressure, Denies sore throat and Denies throat swelling Cardiovascular: Cardiovascular: Denies chest pain, Denies syncope, Denies leg edema, Denies lightheadedness, Denies Loss of Consciousness, Denies palpitations and Denies dyspnea Respiratory: Respiratory: Denies chest congestion, Denies cough and Denies dyspnea Gastrointestinal: Gastrointestinal: Reports abdominal pain, Denies hematochezia, Denies constipation, Denies diarrhea, Reports nausea and Denies vomiting Genitourinary: Genitourinary: Reports no additional female genitourinary complaints Musculoskeletal: Musculoskeletal: Reports no additional musculoskeletal complaints Neurologic: Denies confusion, Denies vertigo, Denies dizziness, Denies syncope, Denies headache(s) and Denies weakness Psychiatric: Psychiatric: Denies anxiety, Denies confusion and Denies depression Endocrine: Endocrine: Denies fatigue and Denies palpitations Allergic/Immunologic: Allergic/Immunologic: Denies throat swelling PMFSH Past Medical History Medical History Abdominal pain ZHOU positive Asthma Gastritis Left sided abdominal pain Overweight (BMI 25.0-29.9) Varicose veins of bilateral lower extremities with pain Surgical History H/O gastric bypass (~2017) H/O tubal ligation Hx of cholecystectomy (~2014) Status post laser ablation of incompetent vein Family History Family History Father HTN (hypertension) Diabetes mellitus Mother HTN (hypertension) Diabetes mellitus Asthma Brother No problems noted. Brother No problems noted. Brother No problems noted. Brother No problems noted. Sister No problems noted. Daughter No problems noted. Son No problems noted. Son No problems noted. Paternal Aunt Breast cancer Family/Other Colon cancer Maternal Aunt Ovarian cancer Social History Social History Household Members: Significant Other Housing: Apartment Do you presently have visiting nurse or other home services: No Alcohol intake: never Patient Tobacco Use Status: Never used Tobacco Second Hand Smoke Exposure: No Advance Directives: No Advance Directives Information Provided: No service: No Current occupational status: employed Physical Exam ED Vital Signs: Vital Signs - 24 hr 02/15/22 09:18 02/15/22 15:28 02/15/22 17:39 Temperature 98.3 F 98.9 F 98.5 F Pulse Rate 70 52 60 Respiratory Rate 16 16 Blood Pressure 170/90 H 152/82 H 137/76 Pulse Oximetry 100 100 100 BMI result Body Mass Index 27.3 Const General: No confusion Nutritional Appearance: well nourished Orientation/consciousness: No confusion Limitations: no limitations HENMT Head: Yes normal to inspection, Yes normocephalic and Yes atraumatic Ears: hearing grossly normal bilaterally, external ears normal, TM's normal bilaterally and EAC's normal General nose exam: Normal external nose present Face and sinus: Yes normal facial exam and Yes sinuses nontender Mouth: Normal oral and palatal mucosa present Throat: Yes posterior oropharynx normal Eyes Conjunctivae: conjunctivae normal Pupils: Equal, round and reactive pupils present EOM: EOMs intact bilaterally Neck Neck: Yes full ROM, Yes no lymphadenopathy and Yes supple Resp Effort & Inspection: normal respiratory effort and able to speak in complete sentences Auscultation: clear to auscultation bilaterally, no crackles, no rales, no rhonchi and no wheezes Cardio Rate: regular rate Rhythm: regular rhythm Heart sounds: S1 normal heart sound present and S2 normal heart sound present GI Inspection: Yes normal to inspection Palpation (GI): Soft to palpation, Tenderness to palpation present (GI) in the epigastrum, in the LUQ and in the RUQ, Guarding due to palpation present (GI) in the LUQ, in the RUQ and other (Epigastric) and not rigid Percussion: Yes normal to percussion Auscultation: normal bowel sounds Skin General skin exam: no rashes or lesions noted Neuro General: No confusion Cranial nerves: Yes Equal, round and reactive pupils present Extrem General: Yes normal to inspection and Yes full ROM Psych Appearance: grossly normal Affect: normal affect Attitude: cooperative Thought process: Normal thought process present Course Course Course Narrative: 51-year-old female with a long history of epigastric pain presents for worsening epigastric pain today. On exam, patient is tender and guarding in her epigastrium and right and left upper quadrant. EKG shows no ischemia. Lipase is 44. Labs are unremarkable. Reevaluation(s) Reevaluation #1: CT/CT abdomen pelvis wo con IMPRESSION: Small amount of free fluid in the pelvis of unknown etiology. Postsurgical changes in the left upper quadrant likely gastric bypass, the previous study. ? There is diffuse mesenteric haziness and small mesenteric lymph nodes a new finding since the previous exam. This could be postsurgical or inflammatory changes. No bowel obstruction seen. ? Cholecystectomy with mild extrahepatic ductal dilation. Reevaluation #2: Spoke to Naheed Lim, Bariatric provider, by phone, whom I had texted, and who actually came in to see the patient Naheed said that most likely this is a gastric ulcer. Patient has had a long history of epigastric pain and was hospitalized in November. This gastric pain has gone on and on for months. Patient has no bariatric surgeon Naheed requested that patient's stay on a liquid diet until she has her upper endoscopy. She can drink 330 mg protein shakes a day. She can continue her Carafate and continue her pantoprazole. She may not drink alcohol, take ibuprofen, or drink anything with caffeine. I imparted all of this to the patient who verbalized and agreed with the plan. Patient was given Naheed Lim's clinic number, and told to call tomorrow morning and to tell them she was in the emergency room and that Mariana would like her to have an EGD as soon is past Reevaluation #3: Patient's urine came back dirty, has blood and nitrates, will treat with cephalexin additionally Medical Decision Making Lab Data Result diagrams: 02/15/22 09:52 02/15/22 09:52 Labs: Lab Results 02/15/22 02/15/22 02/15/22 Range/Units 09:52 09:52 15:54 WBC 8.5 (4.8-10.8) X10*3/uL RBC 4.36 (4.20-5.50) X10*6/uL Hgb 11.2 L (12.0-16.0) g/dl Hct 35.8 L (37.0-47.0) % MCV 82.1 (80.0-98.0) fL MCH 25.7 L (27.0-33.0) pg MCHC 31.3 (31.0-35.0) g/dl RDW 15.4 (11.0-16.0) % Plt Count 276 (160-400) X10*3/uL MPV 10.7 (9.4-12.3) fL Immature Gran % (Auto) 0.5 H (0.0-0.4) % Neut % (Auto) 73.1 H (45-73) % Lymph % (Auto) 15.9 L (20-40) % Gonzales % (Auto) 9.0 (2-11) % Eos % (Auto) 1.1 (0-4) % Baso % (Auto) 0.4 (0-2) % Lymph # (Auto) 1.4 (1.2-4.9) X10*3/uL [place] # (Auto) 0.8 (0.1-1.2) X10*3/uL Eos # (Auto) 0.1 (0.0-0.4) X10*3/uL Baso # (Auto) 0.0 (0.0-0.2) X10*3/uL Abs Immat Gran (auto) 0.04 H (0.00-0.03) X10*3/uL Absolute Neuts (auto) 6.2 (2.0-8.3) x10*3/uL Absolute Nucleated RBC 0.000 (0.0-0.012) X10*3/uL Nucleated RBC % (auto) 0.0 (0.0-0.2) /100WBC Sodium 138 (135-145) mmol/L Potassium 4.3 (3.3-5.1) mmol/L Chloride 107 (96-108) mmol/L Carbon Dioxide 25 (22-29) mmol/L Anion Gap 10 L (12-20) BUN 12 (9-16) mg/dL Creatinine 0.66 (0.5-1.4) mg/dL Estim Creat Clear Calc 89.5 Estimated GFR > 60 Random Glucose 90 (60-115) mg/dL Calcium 8.9 (8.4-10.2) mg/dL Total Bilirubin 0.5 (0.0-1.0) mg/dL Direct Bilirubin 0.3 (0.0-0.5) mg/dL AST 16 (5-31) U/L ALT 11 (0-31) U/L Alkaline Phosphatase 63 (39-117) U/L Troponin I High Sens < 3.5 D (<3.5-17.0) ng/L Total Protein 6.4 L (6.5-8.0) g/dL Albumin 3.7 (3.5-5.0) g/dL Lipase 44 (8-78) U/L Beta HCG, Quant < 2 mIU/mL Urine Color Urine Appearance Urine pH (5.0-8.0) Ur Specific [place] (1.005-1.025) Urine Protein (NEG-TRACE) MG/DL Urine Glucose (UA) (NEG) MG/DL Urine Ketones (NEG) MG/DL Urine Blood (NEG) Urine Nitrite (NEG) Ur Leukocyte Esterase (NEG) Urine RBC (0) /HPF Urine WBC (0-4) /HPF Ur Squamous Epith Cells /LPF Urine Bacteria /LPF 02/15/22 Range/Units 18:13 WBC (4.8-10.8) X10*3/uL RBC (4.20-5.50) X10*6/uL Hgb (12.0-16.0) g/dl Hct (37.0-47.0) % MCV (80.0-98.0) fL MCH (27.0-33.0) pg MCHC (31.0-35.0) g/dl RDW (11.0-16.0) % Plt Count (160-400) X10*3/uL MPV (9.4-12.3) fL Immature Gran % (Auto) (0.0-0.4) % Neut % (Auto) (45-73) % Lymph % (Auto) (20-40) % Gonzales % (Auto) (2-11) % Eos % (Auto) (0-4) % Baso % (Auto) (0-2) % Lymph # (Auto) (1.2-4.9) X10*3/uL [place] # (Auto) (0.1-1.2) X10*3/uL Eos # (Auto) (0.0-0.4) X10*3/uL Baso # (Auto) (0.0-0.2) X10*3/uL Abs Immat Gran (auto) (0.00-0.03) X10*3/uL Absolute Neuts (auto) (2.0-8.3) x10*3/uL Absolute Nucleated RBC (0.0-0.012) X10*3/uL Nucleated RBC % (auto) (0.0-0.2) /100WBC Sodium (135-145) mmol/L Potassium (3.3-5.1) mmol/L Chloride (96-108) mmol/L Carbon Dioxide (22-29) mmol/L Anion Gap (12-20) BUN (9-16) mg/dL Creatinine (0.5-1.4) mg/dL Estim Creat Clear Calc Estimated GFR Random Glucose (60-115) mg/dL Calcium (8.4-10.2) mg/dL Total Bilirubin (0.0-1.0) mg/dL Direct Bilirubin (0.0-0.5) mg/dL AST (5-31) U/L ALT (0-31) U/L Alkaline Phosphatase (39-117) U/L Troponin I High Sens (<3.5-17.0) ng/L Total Protein (6.5-8.0) g/dL Albumin (3.5-5.0) g/dL Lipase (8-78) U/L Beta HCG, Quant mIU/mL Urine Color YELLOW Urine Appearance HAZY Urine pH 6.0 (5.0-8.0) Ur Specific [place] 1.015 (1.005-1.025) Urine Protein NEG (NEG-TRACE) MG/DL Urine Glucose (UA) NEG (NEG) MG/DL Urine Ketones 15 (NEG) MG/DL Urine Blood 2+ H (NEG) Urine Nitrite POS H (NEG) Ur Leukocyte Esterase NEG (NEG) Urine RBC 15-29 H (0) /HPF Urine WBC 1-4 (0-4) /HPF Ur Squamous Epith Cells 2+ /LPF Urine Bacteria 4+ /LPF ECG Data Interpretation: Sinus Raul at a rate of 56, W[place] interval 158, QRS 82, QTC 4 5, normal axis, no ST depressions or elevations, no T-wave abnormalities Discharge Plan Discharge Clinical Impression: Gastric ulcer, UTI (urinary tract infection) Patient Disposition: Home, Self-Care Instructions: Urinary Tract Infection in Women (ED) Additional Instructions: PLease call [phone] first thing tomorrow morning. This is the bariatric provider you spoke with, Mariana Lim. Tell the person who answers the phone that your in the emergency room, and you spoke with the Naheed Lim and she wants to get you in for an upper endoscopy as soon as possible Please buy 30 g protein shakes and drink 3 protein shakes a day. You must stay on a liquid diet. You may not have any alcohol at all, and no caffeine at all, no ibuprofen, Motrin, Excedrin, or anything with ibuprofen Please continue your carafate, continue your pantoprazole. In addition you have a urinary tract infection, please fill the prescription I sent to your pharmacy and start taking it immediately Prescriptions: New cephalexin 500 mg capsule 500 mg PO QID 5 Days Qty: 20 0RF No Action lansoprazole [Prevacid] 30 mg capsule,delayed release(DR/EC) 30 mg PO DAILY 30 Days Qty: 30 2RF pantoprazole [Protonix] 40 mg tablet,delayed release (DR/EC) 40 mg PO DAILY Qty: 20 0RF sucralfate 1 gram Tablet 1 g PO QIDACHS Qty: 120 0RF ferrous sulfate 325 mg (65 mg iron) tablet 325 mg PO DAILY Qty: 30 0RF Referrals: Naheed Lim PA-C [Physician Manager Of International] -
[2022-02-15 17:39] VITALS: BP 137/76; PULSE 60; RESP 16; TEMP 36.9; O2SAT 100
[2022-02-15 18:27] LABS: Appearance Urine HAZY; Color Urine YELLOW; Glucose Urine UA NEG (NEG); Leukocyte Esterase Urine NEG (NEG); Nitrite Urine POS (NEG); Specific Gravity - Urine 1.015 (1.005-1.025); UACC Culture Trigger YES; Urine Blood 2+ (NEG); Urine Ketones 15 MG/DL (NEG); Urine Protein NEG (NEG-TRACE)
[2022-02-15 18:39] LABS: Bacteria Urine 4+ /LPF; Squamous Epithelial Cell Urine 2+ /LPF
== END 2022-02-15 19:14 | disposition home or self-care (01) ==
PROVIDERS: Physician Assistant; Emergency Provider Emergency Medicine; PCP Internal Medicine
DX: N39.0 Urinary tract infection, site not specified (principal); K25.9 Gastric ulcer, unspecified as acute or chronic, without hemorrhage or perforation; Z98.84 Bariatric surgery status; Z90.49 Acquired absence of other specified parts of digestive tract
CPT/HCPCS: 36415; 74176; 80048; 80076; 81001; 83690; 84484; 84702; 85025; 87086; 93005; 96361; 96374; 96375; 99283; 99284; J2270; J2405

== ENCOUNTER → 2022-02-26 14:27 | Outpatient (BNVA) | payer OTHER, SELFPAY | PROVIDERS: PCP Internal Medicine; Visit Provider Physician Assistant | DX: K25.9 Gastric ulcer, unspecified as acute or chronic, without hemorrhage or perforation (principal) | CPT/HCPCS: 99202 ==

== ENCOUNTER 2022-03-02 21:47 | Inpatient (IN) | payer OTHER, SELFPAY ==
--- NOTE | ~2022-03-02 | CT_ITS ---
EXAMINATION: CT ABDOMEN AND PELVIS WITHOUT CONTRAST CLINICAL INFORMATION: Diffuse abdominal discomfort, anemia COMPARISON: 02/15/2022 TECHNIQUE: Multidetector volumetric imaging was performed from the superior aspect of the liver through the pubic symphysis. Sagittal and coronal reformatted images were obtained on the technologist's workstation. This CT examination was performed using dose optimization techniques as appropriate, variously including the following: *Automated exposure control *Adjustment of mA and/or kV according to patient size (this includes techniques or standardized protocols for targeted exams where dose is matched to indication/reason for exam; i.e. extremities or head) *Use of iterative reconstruction technique DLP: 469 mGy-cm FINDINGS: LUNG BASES: The visualized lung bases are unremarkable. LIVER, GALLBLADDER, AND BILIARY TREE: The liver is normal in size, shape, and attenuation. No focal hepatic lesion or biliary ductal dilatation is present. Patient is status post cholecystectomy. PANCREAS: Unremarkable. SPLEEN: Unremarkable. ADRENAL GLANDS: Unremarkable. KIDNEYS AND URETERS: The kidneys are normal in size, shape, and attenuation. No hydronephrosis, hydroureter, or calculi seen. No perinephric stranding. BLADDER: Unremarkable. GASTROINTESTINAL TRACT: Status post gastric bypass surgery. No evidence of bowel obstruction. There is extensive mesenteric stranding throughout the abdomen, similar to slightly worsened from 02/15/2022. Much of the small bowel also has an increasingly thick-walled appearance. There is a swirling configuration of mesenteric vessels and bowel in the central abdomen, similar to prior. Cecum and appendix are noted to lie in the left upper quadrant. No free air identified. Small amount of abdominal and pelvic free fluid is present. ABDOMINAL WALL: No significant hernia is appreciated. LYMPH NODES: Normal. VASCULAR: Mild atherosclerotic calcifications. PELVIC VISCERA: IUD is present, though configuration suggests malpositioning. OSSEOUS STRUCTURES: There is facet arthropathy of the lumbar spine. CT/CT abdomen pelvis wo con IMPRESSION: 1. Extensive mesenteric stranding and wall thickening involving much of the small bowel, overall increased from 03/03/2022. There is a swirling configuration of mesenteric vessels and bowel in the central abdomen, raising suspicion for volvulus. Wall thickening in this setting could be due to ischemic enteritis. No convincing evidence for obstruction. Postoperative changes of gastric bypass surgery are noted. 2. Configuration of the IUD in the uterus suggests malpositioning. Clinical correlation recommended. This critical result was discussed with Dr. Feliz on 03/03/2022 6:20 AM, and it was ascertained that the content and urgency of the report was understood at the time of direct communication.
[2022-03-02 22:30] VITALS: BP 150/79; PULSE 65; RESP 18; TEMP 36.9; O2SAT 100; BMI 27.6
[2022-03-02] MEDS: Ondansetron ODT 4 MG TAB.RAPDIS TRANSLINGU (22:40)
[2022-03-02 22:56] LABS: Basophils Percent Auto 0.2 % (0-2); Eosinophils Percent Auto 0.4 % (0-4); Hematocrit 31.2 % (37.0-47.0); Hemoglobin 9.9 g/dl (12.0-16.0); Imm Gran Abs Auto 0.02 X10*3/uL (0.00-0.03); Imm Gran Pct Auto 0.2 % (0.0-0.4); Lymphocytes Percent Auto 25.2 % (20-40); MANUAL DIFF FLAG NO; Mean Corpuscular HGB Conc 31.7 g/dl (31.0-35.0); Mean Corpuscular Hemoglobin 26.1 pg (27.0-33.0); Mean Corpuscular Volume 82.3 fL (80.0-98.0); Mean Platelet Volume 10.2 fL (9.4-12.3); Monocytes Absolute Auto 0.8 X10*3/uL (0.1-1.2); Monocytes Percent Auto 9.8 % (2-11); Neutrophils Absolute Auto 5.2 x10*3/uL (2.0-8.3); Neutrophils Percent Auto 64.2 % (45-73); Platelet Count 269 X10*3/uL (160-400); Red Blood Count 3.79 X10*6/uL (4.20-5.50); Red Cell Distribution Width 15.3 % (11.0-16.0)
[2022-03-02 23:11] LABS: Alanine Aminotransferase 13 U/L (0-31); Albumin Level 3.7 g/dL (3.5-5.0); Alkaline Phosphatase 60 U/L (39-117); Anion Gap 12 (12-20); Aspartate Amino Transferase 17 U/L (5-31); Bilirubin Direct 0.2 mg/dL (0.0-0.5); Bilirubin Total 0.4 mg/dL (0.0-1.0); Blood Urea Nitrogen 10 mg/dL (9-16); Calcium 8.7 mg/dL (8.4-10.2); Carbon Dioxide 21 mmol/L (22-29); Chloride 110 mmol/L (96-108); Creatinine Clr Calc Pharmacy 76.9; Estimated Glomerular Filt Rate > 60; Glucose Random 130 mg/dL (60-115); Lipase 59 U/L (8-78); Potassium 3.7 mmol/L (3.3-5.1); Sodium 139 mmol/L (135-145); Total Protein 6.3 g/dL (6.5-8.0)
[2022-03-03] VITALS (13 sets, daily range): BP systolic 117–141; BP diastolic 62–75; PULSE 46–109; RESP 15–19; TEMP 36.3–36.8; O2SAT 98–100; BMI 27.8
--- NOTE | 2022-03-03 03:07 | PC.NURSE ---
PATIENT IS STILL UNABLE TO GIVE URINE .
[2022-03-03 04:38] LABS: Appearance Urine HAZY; Color Urine YELLOW; Glucose Urine UA 100 MG/DL (NEG); Leukocyte Esterase Urine TRACE (NEG); Nitrite Urine NEG (NEG); Specific Gravity - Urine >= 1.030 (1.005-1.025); UACC Culture Trigger NO; Urine Blood 3+ (NEG); Urine Ketones >=80 MG/DL (NEG); Urine Protein TRACE MG/DL (NEG-TRACE)
[2022-03-03 04:45] LABS: Bacteria Urine 2+ /LPF; Mucus Urine 2+ /LPF; RBC Urine 30-49 /HPF (0); Squamous Epithelial Cell Urine 1+ /LPF; UACC CULT YES
[2022-03-03 04:56] LABS: HCG Quantitative < 2 mIU/mL
[2022-03-03] MEDS: ondansetron HCL 4 MG/2 ML VIAL IVPUSH (05:17)
[2022-03-03] MEDS: 0.9 % Sodium Chloride 1,000 ML 999 ML IV (05:17)
--- NOTE | 2022-03-03 05:20 | PC.NURSE ---
Iv placed, pt medicated per Dec. Labs collected and sent.
[2022-03-03 05:30] LABS: Lactic Acid 1.8 mmol/L (0.5-2.0)
--- NOTE | 2022-03-03 05:40 | ED_ITS ---
HPI - Abdominal Pain General Chief Complaint: Abdominal Pain Stated Complaint: Abdominal pain Time Seen by Provider: 03/03/22 04:33 Source: patient Mode of arrival: ambulatory History of Present Illness HPI narrative: 51-year-old female with history of gastric bypass presents with onset diffuse abdominal pain radiating into her back that started just prior to arrival this evening and associated with nausea and vomiting. Patient states she is continued to pass flatus but is not had any diarrhea. Patient reports chills but no fevers and denies any urinary symptoms. Related Data Previous Rx's Medication Instructions Recorded ferrous sulfate 325 mg (65 mg 325 mg PO DAILY #30 tab 11/10/21 iron) tablet sucralfate 1 gram tablet 1 g PO QIDACHS #120 tab 11/10/21 lansoprazole 30 mg capsule,delayed 30 mg PO DAILY 30 Days #30 cap 12/26/21 release (Prevacid) pantoprazole 40 mg tablet,delayed 40 mg PO DAILY #20 tab 02/13/22 release (Protonix) cephalexin 500 mg capsule 500 mg PO QID 5 Days #20 cap 02/15/22 Allergies Allergy/AdvReac Type Severity Reaction Status Date / Time No Known Allergies Allergy Verified 01/17/22 16:04 [No Known Allergies*] Review of Systems Review of Systems Pertinent positives and negatives as stated in HPI 10 point review of systems is otherwise negative. FOR[facility]LY [facility], [facility] Past Medical History Source: nursing notes reviewed Medical History Abdominal pain ZHOU positive Asthma Gastritis Left sided abdominal pain Overweight (BMI 25.0-29.9) Varicose veins of bilateral lower extremities with pain Surgical History H/O gastric bypass (~2018) H/O tubal ligation Hx of cholecystectomy (~2014) Status post laser ablation of incompetent vein Family History Family History Father HTN (hypertension) Diabetes mellitus Mother HTN (hypertension) Diabetes mellitus Asthma Brother No problems noted. Brother No problems noted. Brother No problems noted. Brother No problems noted. Sister No problems noted. Daughter No problems noted. Son No problems noted. Son No problems noted. Paternal Aunt Breast cancer Family/Other Colon cancer Maternal Aunt Ovarian cancer Social History Social History Household Members: Significant Other Housing: Apartment Do you presently have visiting nurse or other home services: No Alcohol intake: never Patient Tobacco Use Status: Never used Tobacco Smoked in Last 30 Days: No Second Hand Smoke Exposure: No Use of substances other than those prescribed or required for medical reasons: No Advance Directives: No Advance Directives Information Provided: No Patient : No service: No Current occupational status: employed Physical Exam ED Vital Signs: Vital Signs - 24 hr 03/02/22 22:30 03/03/22 04:00 03/03/22 06:00 Temperature 98.5 F 97.4 F 97.4 F Pulse Rate 65 109 H 53 Respiratory Rate 18 16 15 Blood Pressure 150/79 H 128/70 135/72 Pulse Oximetry 100 98 98 BMI result Body Mass Index 27.6 VITAL SIGNS: Reviewed. GENERAL: Well developed, well nourished, in moderate distress. HEAD: Normocephalic/atraumatic EYES: PERRLA, EOMI EARS: Ext canals without abnormality OROPHARYNX: no oral lesions noted, posterior pharynx clear LUNGS: Normal breath sounds. No adventitious sounds or accessory muscle use. SpO2<100> CARDIOVASCULAR: Regular rate and rhythm without noted murmurs ABDOMEN: Soft, tenderness throughout without rebound, non-distended with bowel sounds. MUSCULOSKELETAL: No tenderness, deformities, or effusions noted on gross insp ection. EXTREMITIES: No cyanosis, clubbing or edema. SKIN: Inspection of the skin reveals no rashes NEUROLOGIC: Alert and oriented x 4. Strength and sensation to light touch were grossly intact x 4. Course Course Course Narrative: 51-year-old female with history and clinical presentation suggestive of possible ulcer, perforation, SBO. Patient received IV fluids, pain medications and on re-evaluation is feeling much better. Review of all investigations concerning for ischemic bowel secondary to possible hernia. I discussed this case with both general surgery as well as bariatric surgery the latter which will accept admission and recommends IV fluids at 150 cc an hour. MDM - Abdominal Pain Lab Data Result diagrams: 03/02/22 22:50 03/02/22 22:50 Labs: Lab Results 03/02/22 03/02/22 03/03/22 Range/Units 22:50 22:50 04:30 WBC 8.0 (4.8-10.8) X10*3/uL RBC 3.79 L (4.20-5.50) X10*6/uL Hgb 9.9 L (12.0-16.0) g/dl Hct 31.2 L (37.0-47.0) % MCV 82.3 (80.0-98.0) fL MCH 26.1 L (27.0-33.0) pg MCHC 31.7 (31.0-35.0) g/dl RDW 15.3 (11.0-16.0) % Plt Count 269 (160-400) X10*3/uL MPV 10.2 (9.4-12.3) fL Immature Gran % (Auto) 0.2 (0.0-0.4) % Neut % (Auto) 64.2 (45-73) % Lymph % (Auto) 25.2 (20-40) % [place] % (Auto) 9.8 (2-11) % Eos % (Auto) 0.4 (0-4) % Baso % (Auto) 0.2 (0-2) % Lymph # (Auto) 2.0 (1.2-4.9) X10*3/uL [place] # (Auto) 0.8 (0.1-1.2) X10*3/uL Eos # (Auto) 0.0 (0.0-0.4) X10*3/uL Baso # (Auto) 0.0 (0.0-0.2) X10*3/uL Abs Immat Gran (auto) 0.02 (0.00-0.03) X10*3/uL Absolute Neuts (auto) 5.2 (2.0-8.3) x10*3/uL Absolute Nucleated RBC 0.000 (0.0-0.012) X10*3/uL Nucleated RBC % (auto) 0.0 (0.0-0.2) /100WBC Sodium 139 (135-145) mmol/L Potassium 3.7 (3.3-5.1) mmol/L Chloride 110 H (96-108) mmol/L Carbon Dioxide 21 L (22-29) mmol/L Anion Gap 12 (12-20) BUN 10 (9-16) mg/dL Creatinine 0.77 (0.5-1.4) mg/dL Estim Creat Clear Calc 76.9 Estimated GFR > 60 Random Glucose 130 H (60-115) mg/dL Lactic Acid (0.5-2.0) mmol/L Calcium 8.7 (8.4-10.2) mg/dL Total Bilirubin 0.4 (0.0-1.0) mg/dL Direct Bilirubin 0.2 (0.0-0.5) mg/dL AST 17 (5-31) U/L ALT 13 (0-31) U/L Alkaline Phosphatase 60 (39-117) U/L Total Protein 6.3 L (6.5-8.0) g/dL Albumin 3.7 (3.5-5.0) g/dL Lipase 59 (8-78) U/L Beta HCG, Quant < 2 mIU/mL Urine Color YELLOW Urine Appearance HAZY Urine pH 6.0 (5.0-8.0) Ur Specific [place] >= 1.030 H (1.005-1.025) Urine Protein TRACE (NEG-TRACE) MG/DL Urine Glucose (UA) 100 H (NEG) MG/DL Urine Ketones >=80 (NEG) MG/DL Urine Blood 3+ H (NEG) Urine Nitrite NEG (NEG) Ur Leukocyte Esterase TRACE H (NEG) Urine RBC 30-49 H (0) /HPF Urine WBC 5-9 H (0-4) /HPF Ur Squamous Epith Cells 1+ /LPF Urine Bacteria 2+ /LPF Urine Mucus 2+ /LPF 03/03/22 Range/Units 05:12 WBC (4.8-10.8) X10*3/uL RBC (4.20-5.50) X10*6/uL Hgb (12.0-16.0) g/dl Hct (37.0-47.0) % MCV (80.0-98.0) fL MCH (27.0-33.0) pg MCHC (31.0-35.0) g/dl RDW (11.0-16.0) % Plt Count (160-400) X10*3/uL MPV (9.4-12.3) fL Immature Gran % (Auto) (0.0-0.4) % Neut % (Auto) (45-73) % Lymph % (Auto) (20-40) % [place] % (Auto) (2-11) % Eos % (Auto) (0-4) % Baso % (Auto) (0-2) % Lymph # (Auto) (1.2-4.9) X10*3/uL [place] # (Auto) (0.1-1.2) X10*3/uL Eos # (Auto) (0.0-0.4) X10*3/uL Baso # (Auto) (0.0-0.2) X10*3/uL Abs Immat Gran (auto) (0.00-0.03) X10*3/uL Absolute Neuts (auto) (2.0-8.3) x10*3/uL Absolute Nucleated RBC (0.0-0.012) X10*3/uL Nucleated RBC % (auto) (0.0-0.2) /100WBC Sodium (135-145) mmol/L Potassium (3.3-5.1) mmol/L Chloride (96-108) mmol/L Carbon Dioxide (22-29) mmol/L Anion Gap (12-20) BUN (9-16) mg/dL Creatinine (0.5-1.4) mg/dL Estim Creat Clear Calc Estimated GFR Random Glucose (60-115) mg/dL Lactic Acid 1.8 (0.5-2.0) mmol/L Calcium (8.4-10.2) mg/dL Total Bilirubin (0.0-1.0) mg/dL Direct Bilirubin (0.0-0.5) mg/dL AST (5-31) U/L ALT (0-31) U/L Alkaline Phosphatase (39-117) U/L Total Protein (6.5-8.0) g/dL Albumin (3.5-5.0) g/dL Lipase (8-78) U/L Beta HCG, Quant mIU/mL Urine Color Urine Appearance Urine pH (5.0-8.0) Ur Specific [place] (1.005-1.025) Urine Protein (NEG-TRACE) MG/DL Urine Glucose (UA) (NEG) MG/DL Urine Ketones (NEG) MG/DL Urine Blood (NEG) Urine Nitrite (NEG) Ur Leukocyte Esterase (NEG) Urine RBC (0) /HPF Urine WBC (0-4) /HPF Ur Squamous Epith Cells /LPF Urine Bacteria /LPF Urine Mucus /LPF Discharge Plan Discharge Clinical Impression: H/O gastric bypass, Ischemia, bowel Patient Disposition: Admitted As Inpatient Prescriptions: No Action lansoprazole [Prevacid] 30 mg capsule,delayed release(DR/EC) 30 mg PO DAILY 30 Days Qty: 30 2RF pantoprazole [Protonix] 40 mg tablet,delayed release (DR/EC) 40 mg PO DAILY Qty: 20 0RF cephalexin 500 mg capsule 500 mg PO QID 5 Days Qty: 20 0RF sucralfate 1 gram Tablet 1 g PO QIDACHS Qty: 120 0RF ferrous sulfate 325 mg (65 mg iron) tablet 325 mg PO DAILY Qty: 30 0RF
[2022-03-03] MEDS: 0.9 % Sodium Chloride 1,000 ML 200 ML IVCONT (07:59)
[2022-03-03 08:21] LABS: COVID-19 Test Negative (Negative); IDNOW Serial# 9DB6401D
--- NOTE | 2022-03-03 08:23 | PHA.MEDREC ---
Pharmacy Consult ? Medication Reconciliation Pharmacy has completed the medication reconciliation. Patient reports she is taking lansoprazole instead of pantoprazole. She reports not taking ferrous sulfate due to stomach issues. Sharyn Wood, MarinaD
--- NOTE | 2022-03-03 08:52 | PC.NURSE ---
DR MRATINEZ HERE TO EVAL PT. PLAN IS FOR PT TO REMAIN NPO AND GO TO THE OR.
--- NOTE | 2022-03-03 09:15 | PM.HPGS ---
History of Present Illness History of Present Illness Date of Service: 03/03/22 Chief complaint: Abdominal pain Narrative: Linnette Dunne is a 51 year old female who is status post gastric bypass at [facility] in [place] approximately 4 years ago. She reports her peak weight was 248 lb and she has dropped to 145 lb. She moved to the area and reestablished alert relationship with our bariatric program. Patient reports a year history of waxing and waning abdominal pain sometimes worse after eating but it is progressing at this point. She was seen in the bariatric clinic due to 03/03/2022 CT scan showing increased mesentery markings and concern for intra-abdominal pathology. The patient freely endorses that she is using caffeine, alcohol and NSAID sometimes on a daily basis. She was advised to go on a liquid diet, start Carafate and has been somewhat compliant but notes that she was eating bread and garlic last night. She presented to the emergency department for evaluation due to pain that started earlier this morning and is ill-defined but progressing. I was contacted by Krystian Musa PA-C in the emergency department to help direct her care. The patient also asked me to reach out to her , Bora Coley at [phone] & a message was left. Review of Systems Review of Systems: The patient endorses epigastric and left upper quadrant gnawing pain; she denies any nicotine use; she reports daily caffeine, she endorses occasional marijuana use; she is using ibuprofen daily in spite of instruction to stop using it. She is also drinking a couple glasses of wine several times a week. Last bowel movement was normal yesterday morning. Yes all other systems are reviewed and are negative Constitutional: Constitutional: Reports as per HPI and Reports no additional constitutional complaints Psychiatric: Comments: While the patient is slightly anxious, she is nontoxic and her mood, judgment and insight appear intact FORMERLY [facility], [facility] Past Medical History Medical History Abdominal pain ZHOU positive Asthma Gastritis Left sided abdominal pain Overweight (BMI 25.0-29.9) Varicose veins of bilateral lower extremities with pain Functional capacity: independent ambulation Family History Family History Father HTN (hypertension) Diabetes mellitus Mother HTN (hypertension) Diabetes mellitus Asthma Brother No problems noted. Brother No problems noted. Brother No problems noted. Brother No problems noted. Sister No problems noted. Daughter No problems noted. Son No problems noted. Son No problems noted. Paternal Aunt Breast cancer Family/Other Colon cancer Maternal Aunt Ovarian cancer Surgical History Surgical History H/O gastric bypass (~2018) H/O tubal ligation Hx of cholecystectomy (~2014) Status post laser ablation of incompetent vein Social History Social History Household Members: Significant Other Housing: Apartment Do you presently have visiting nurse or other home services: No Alcohol intake: never Patient Tobacco Use Status: Never used Tobacco Smoked in Last 30 Days: No Second Hand Smoke Exposure: No Use of substances other than those prescribed or required for medical reasons: No Advance Directives: No Advance Directives Information Provided: No Patient : No service: No Current occupational status: employed Meds Allergies Allergy/AdvReac Type Severity Reaction Status Date / Time No Known Allergies Allergy Verified 03/03/22 09:25 [No Known Allergies*] Active Medications: Current Medications Sodium Chloride (Ns) 1,000 mls @ 200 mls/hr IVCONT .Q5H JIMENEZ Stop: 03/03/22 12:14 Last Admin: 03/03/22 07:59 Dose: 200 mls/hr Documented by: Home Medications Medication Instructions Recorded Confirmed Last Taken Type acetaminophen 325 mg tablet 650 mg PO Q6H PRN 03/03/22 03/03/22 Unknown History Physical Exam Vital Signs: Vital Signs: Last Vital Signs Temp 97.4 F 03/03/22 06:00 Pulse 67 03/03/22 08:49 Resp 18 03/03/22 08:49 BP 128/75 03/03/22 08:49 Pulse Ox 100 03/03/22 08:49 BMI result Body Mass Index 27.6 On exam, the patient is nontoxic. I was we discussed the plan, she was a little anxious and tearful and requested that I contact her , Bora Coley [phone] and left a message. NC/AT, PERRLA, EOMI Heart is regular, normal S1-S2 no rubs or murmurs, lungs are clear and equal anteriorly with no audible wheezing, rubs or dullness to percussion Abdomen is overweight and soft with no peritoneal sign. There is vague diffuse tenderness to palpation and centering in the epigastrium. I do not appreciate any hernias. Rectal and pelvic are deferred Skin is good turgor and is free of rashes Lower extremities are free of cyanosis clubbing edema Mood, affect and insight appear normal/intact Results Results Labs: Short CBC 03/02/22 Range/Units 22:50 WBC 8.0 (4.8-10.8) X10*3/uL Hgb 9.9 L (12.0-16.0) g/dl Hct 31.2 L (37.0-47.0) % Plt Count 269 (160-400) X10*3/uL BMP 03/02/22 22:50 Sodium 139 Potassium 3.7 Chloride 110 H Carbon Dioxide 21 L BUN 10 Creatinine 0.77 Calcium 8.7 Liver Function 03/02/22 Range/Units 22:50 Total Bilirubin 0.4 (0.0-1.0) mg/dL Direct Bilirubin 0.2 (0.0-0.5) mg/dL AST 17 (5-31) U/L ALT 13 (0-31) U/L Alkaline Phosphatase 60 (39-117) U/L Albumin 3.7 (3.5-5.0) g/dL Urine 03/03/22 Range/Units 04:30 Urine Color YELLOW Urine Appearance HAZY Urine pH 6.0 (5.0-8.0) Ur Specific [place] >= 1.030 H (1.005-1.025) Urine Protein TRACE (NEG-TRACE) MG/DL Urine Glucose (UA) 100 H (NEG) MG/DL Abdomen CT scan report/results: report reviewed and image reviewed CT scan - pelvis: report reviewed and image reviewed Assessment and Plan (1) Ischemia, bowel: Status: Acute (2) H/O gastric bypass: Status: Acute (3) Gastric ulcer: Status: Acute (4) Iron deficiency anemia: Status: Acute (5) Gastritis: Status: Acute (6) Asthma: Qualifiers: Asthma severity: unspecified severity Asthma persistence: intermittent Asthma complication type: uncomplicated Qualified Code(s): J45.20 - Mild intermittent asthma, uncomplicated Status: Acute (7) Anemia: Qualifiers: Anemia type: unspecified type Qualified Code(s): D64.9 - Anemia, unspecified Status: Acute (8) Epigastric pain: Status: Acute (9) Overweight (BMI 25.0-29.9): Status: Acute (10) ZHOU positive: Status: Acute Plan I had a long discussion with the patient regarding options. The 1st option is to transfer her to a larger center for re-evaluation. She declined this option. I am concerned that she may have a marginal ulcer or a gastrogastric fistula based on the appearance of her CT scan. Her excluded gastric remnant has an air-fluid level, which is uncommon at this point. This may could be contributing to some of her pain, however the radiologist notes increased mesenteric marking and a possible volvulus which mandated operative intervention and exploration. I have recommended proceeding with an upper endoscopy and diagnostic laparoscopy, possible laparotomy, possible revision of her gastric bypass if necessary. I reviewed the inherent risks of bleeding, infection, blood clots, need for reoperation. I also explained the possible Chas of negative exploration. She seemed understand and wanted to proceed. 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 Will proceed with an upper endoscopy after GT GET in the operating room and then planned diagnostic laparoscopy. If I am unable to clearly demonstrate no internal hernia, a laparotomy may be required. Quality Stroke Does the patient have a stroke diagnosis?: No VTE Prior VTE?: No VTE Risk Level:: Surgical - moderate VTE Device Contraindication: N/A - Device Ordered VTE Drug Contraindication: N/A - Med Ordered Procedures Date of Service Date of Service: 03/03/22
--- NOTE | 2022-03-03 10:00 | HO.ANESPROP2 ---
HPI - Anesthesia Eval Consult details Narrative: possible volvulus PMFSH Active Problems Active Problems: All Active Problems (Updated 03/03/22 @ 07:41 by Cherelle Feliz MD) Ischemia, bowel (Acute) H/O gastric bypass (Acute ~2018) Gastric ulcer (Acute) Heavy menstrual bleeding (Acute) Dysmenorrhea (Acute) Encounter for annual routine gynecological examination (Acute) Iron deficiency anemia (Acute) Gastritis (Acute) Urinary tract infection (Acute) Asthma (Acute) Anemia (Acute) Annual physical exam (Acute) Epigastric pain (Acute) Bilateral lower extremity pain (Acute) Left sided abdominal pain (Acute) Overweight (BMI 25.0-29.9) (Acute) Abdominal pain (Acute) ZHOU positive (Acute) Varicose veins of right lower extremity with inflammation (Acute) Past Medical History Medical History Abdominal pain ZHOU positive Asthma Gastritis Left sided abdominal pain Overweight (BMI 25.0-29.9) Varicose veins of bilateral lower extremities with pain Functional capacity: independent ambulation Family History Family History Father HTN (hypertension) Diabetes mellitus Mother HTN (hypertension) Diabetes mellitus Asthma Brother No problems noted. Brother No problems noted. Brother No problems noted. Brother No problems noted. Sister No problems noted. Daughter No problems noted. Son No problems noted. Son No problems noted. Paternal Aunt Breast cancer Family/Other Colon cancer Maternal Aunt Ovarian cancer Family history of problems with anesthesia: No Surgical History Surgical History H/O gastric bypass (~2017) H/O tubal ligation Hx of cholecystectomy (~2014) Status post laser ablation of incompetent vein History of Problems with Anesthesia: No Social History Social History Household Members: Significant Other Housing: Apartment Do you presently have visiting nurse or other home services: No Alcohol intake: never Patient Tobacco Use Status: Never used Tobacco Smoked in Last 30 Days: No Second Hand Smoke Exposure: No Use of substances other than those prescribed or required for medical reasons: No Advance Directives: No Advance Directives Information Provided: No Patient : No service: No Current occupational status: employed Meds Allergies Allergy/AdvReac Type Severity Reaction Status Date / Time No Known Allergies Allergy Verified 03/03/22 09:25 [No Known Allergies*] Active Medications: Current Medications Sodium Chloride (Ns) 1,000 mls @ 200 mls/hr IVCONT .Q5H JIMENEZ Stop: 03/03/22 12:14 Last Admin: 03/03/22 07:59 Dose: 200 mls/hr Documented by: Home Medications Medication Instructions Recorded Confirmed Last Taken Type acetaminophen 325 mg tablet 650 mg PO Q6H PRN 03/03/22 03/03/22 Unknown History Exam Exam Date and Time: March 03, 2022 1000 Height,Weight and Vital Signs: Height 5 ft 1 in Weight 66.224 kg Last Vital Signs Temp 97.4 F 03/03/22 06:00 Pulse 67 03/03/22 08:49 Resp 18 03/03/22 08:49 BP 128/75 03/03/22 08:49 Pulse Ox 100 03/03/22 08:49 Pertinent Lab Results Pertinent Lab Results: Laboratory Tests 03/02/22 03/02/22 03/03/22 22:50 22:50 04:30 WBC 8.0 RBC 3.79 L Hgb 9.9 L Hct 31.2 L MCV 82.3 MCH 26.1 L MCHC 31.7 RDW 15.3 Plt Count 269 MPV 10.2 Immature Gran % (Auto) 0.2 Neut % (Auto) 64.2 Lymph % (Auto) 25.2 [place] % (Auto) 9.8 Eos % (Auto) 0.4 Baso % (Auto) 0.2 Lymph # (Auto) 2.0 [place] # (Auto) 0.8 Eos # (Auto) 0.0 Baso # (Auto) 0.0 Abs Immat Gran (auto) 0.02 Absolute Neuts (auto) 5.2 Absolute Nucleated RBC 0.000 Nucleated RBC % (auto) 0.0 Sodium 139 Potassium 3.7 Chloride 110 H Carbon Dioxide 21 L Anion Gap 12 BUN 10 Creatinine 0.77 Estim Creat Clear Calc 76.9 Estimated GFR > 60 Random Glucose 130 H Lactic Acid Calcium 8.7 Total Bilirubin 0.4 Direct Bilirubin 0.2 AST 17 ALT 13 Alkaline Phosphatase 60 Total Protein 6.3 L Albumin 3.7 Lipase 59 Beta HCG, Quant < 2 Urine Color YELLOW Urine Appearance HAZY Urine pH 6.0 Ur Specific [place] >= 1.030 H Urine Protein TRACE Urine Glucose (UA) 100 H Urine Ketones >=80 Urine Blood 3+ H Urine Nitrite NEG Ur Leukocyte Esterase TRACE H Urine RBC 30-49 H Urine WBC 5-9 H Ur Squamous Epith Cells 1+ Urine Bacteria 2+ Urine Mucus 2+ COVID-19 (CLOTILDE) COVID-19 Clin Com 03/03/22 03/03/22 05:12 08:00 WBC RBC Hgb Hct MCV MCH MCHC RDW Plt Count MPV Immature Gran % (Auto) Neut % (Auto) Lymph % (Auto) [place] % (Auto) Eos % (Auto) Baso % (Auto) Lymph # (Auto) [place] # (Auto) Eos # (Auto) Baso # (Auto) Abs Immat Gran (auto) Absolute Neuts (auto) Absolute Nucleated RBC Nucleated RBC % (auto) Sodium Potassium Chloride Carbon Dioxide Anion Gap BUN Creatinine Estim Creat Clear Calc Estimated GFR Random Glucose Lactic Acid 1.8 Calcium Total Bilirubin Direct Bilirubin AST ALT Alkaline Phosphatase Total Protein Albumin Lipase Beta HCG, Quant Urine Color Urine Appearance Urine pH Ur Specific [place] Urine Protein Urine Glucose (UA) Urine Ketones Urine Blood Urine Nitrite Ur Leukocyte Esterase Urine RBC Urine WBC Ur Squamous Epith Cells Urine Bacteria Urine Mucus COVID-19 (CLOTILDE) Negative COVID-19 Clin Com See Note Airway Mallampati Class: II TM Dist: >3cm Neck ROM: Full Heart: RRR Lungs: CTA Assessment and Plan Assessment Anesthesia Assessment: Anesthesia Plan Discussed and Chart Reviewed Final Anesthetic Review Family History of Problems with Anesthesia: No History of Problems with Anesthesia: No ASA Class: II and Emergency Final Preanesthetic Review: No Changes in Pt Med Stat, Meds/Allgs Chart Reviewed, Consent Obtained/Reviewed and Anes Risks/Benef Reviewed Patient Risk: Intermediate Procedure Risk: Intermediate Anesthetic Plan Anesthetic Plan: GA Disposition: Standard PACU
--- NOTE | 2022-03-03 13:00 | PM.OP ---
Brief Operative Note Date of Service: 03/03/22 Post-op diagnosis: other (1) Mucosal clips at G-J anastamosis 2) adhesive band causing internal hernia/volvulus) Procedure: 1) Upper endoscopy 2) diagnostioc laparoscopy, lysis of adhesions Implants: none Surgeon: Zoran Arita MD Anesthesia: GETA Was an Energy Systems Laboratory Director used for this Procedure?: Yes Energy Systems Laboratory Director: Krystian Musa Estimated blood loss (mL): 5 Pathology: other (1) adhesive band 2) peritoneal fluid) Condition: stable Disposition: PACU
--- NOTE | 2022-03-03 13:35 | P.OP_ITS ---
Operative Note Operative Note Date of Service: 03/03/22 Narrative: Preop diagnosis: [Abdominal pain, possible volvulus/internal hernia Postop diagnosis: [Same and 1) metallic clips a GJ anastomosis seen on upper endoscopy; 2) adhesive band from the omentum to the anterior abdominal wall Procedure: [1) upper endoscopy; 2) diagnostic laparoscopy with lysis of adhesion Surgeon: Zoran Arita MD Assist: [Krystian Musa PA-C Anesthesia: [GET] Estimated blood loss: [5cc] Specimen: [1) adhesive band; 2) peritoneal fluid] Intraoperative findings: [1) at upper endoscopy, there is no evidence of a marginal ulcer. Metallic clips at the GJ junction/anastomosis were left in Situ; 2) at insufflation, an adhesive band from the omentum to the anterior abdominal wall was noted 3) turbid fluid in the pelvis and abdomen was irrigated, aspirated and sent for culture; 4) Antecolic gastrojejunostomy with adhesions to the liver were noted. Indications: [The patient is a 51-year-old woman who is status post gastric bypass in [facility] approximately 4-5 years ago. Her presenting weight is reported by the patient 248 lb. She reports successful weight loss 11/07/2044 but has had a year of vague abdominal complaints and pain. She has also been using NSAIDs, caffeine, wine but denies any nicotine use. She reported eating bread and all avoid with garlic last night and developed progressive abdominal pain and reported to the emergency department where I was consulted. In reviewing the patient's exam and history, CT scan demonstrated progressive edema/engorgement to the mesentery & bowel and concern of an internal hernia/volvulus. While no free air was noted on CT in the upper abdomen to suggest perforated gastric marginal ulcer. The patient's ongoing NSAID use, ETOH & caffeine and upper abdominal pain also raised the question of a marginal ulcer that could possibly be perforated. Given this, the patient was consented for an upper endoscopy and a diagnostic laparoscopy, possible gastric bypass revision depending on the intraoperative findings. The inherent risks of bleeding, infection, perforation, missed pathology, need for revision surgery, bowel injury and blood clots were all reviewed with the patient. She seemed understand and gave permission to proceed. Procedure: The patient was identified in OR 6. She had voided her bladder prior to coming to the operating room. Sequential compression stockings were in place. She received Ancef, 2 g IV on-call. She was placed supine on the table using a mcdermott bag and a footboard induced in general endotracheal anesthesia administered with excellent effect. An appropriate time-out was performed. I began by performing an upper endoscopy using the Olympus 160 gastroscope which was inserted using blind, finger guided technique without incident. The scope was then advanced under direct vision down the esophagus into the gastric pouch. At this point, 2 metallic clips were noted but the mucosa of the stomach and the jejunum were noted to be normal, free of ulceration and friability. No erythema was present the scope was advanced through the very straight jejunal limb and then withdrawn to assess for pathology. There being nothing other than the metal clips, the scope was used to deflate and withdrawn to the midesophagus and secured in place. The patient's abdomen was widely prepped and draped in the usual manner for surgery using chlorhexidine. Preemptive local of 0.25% Marcaine was used at all trocar insertion sites. I began in the left upper quadrant, raised a skin wheal in made a stab incision. The Veress needle was inserted without difficulty an appropriate drop test performed. Next, pneumoperitoneum of 15 mmHg was obtained using carbon dioxide. Opening pressures were 5 mmHg. After pneumoperitoneum to 15 mmHg was obtained, a skin wheal was raised in the anter ior axillary line on the right side at the level of the umbilicus and additional local infiltrated. A stab incision was made and the 30 degree, 5 mm laparoscopic inserted using an optical trocar technique without incident. I then examined the left upper quadrant and the Veress needle was clearly demonstrated there was no evidence of injury from the Veress needle to deeper structures, consequently was removed. Next, a 5 mm left anterior axillary line trocar was placed under direct laparoscopic vision using preemptive local and a 5 mm supraumbilical port placed. Is the abdomen was examined, it became apparent that there was a adhesive band from the omentum to the anterior abdominal wall just above the umbilicus. This had been torn with insufflation and the and noted to be laying in the mesentery. An additional 5 mm left upper quadrant trocar was placed using preemptive local and the anterior abdominal wall adhesive band lysed using of the LigaSure. This was tissue was withdrawn and sent for permanent section. Next, the remaining adhesive band which is approximately 12cm in length was tracked down to the omentum. It was ligated using 5 mm LigaSure with excellent hemostasis. Given its bulk, a 12 mm trocar was placed in the patient's right side of the abdomen using the prior 5 mm site to up size to 12mm. This was also withdrawn and sent for permanent section. Turbid peritoneal fluid was noted in the pelvis. The suction intellectual property paralegal was used to aspirate this fluid, send it for Gram stain and culture and then the abdomen irrigated. Hemostasis was noted to be good. Position changes were used and graspers utilized to run the bowel from the antecolic gastric bypass to the anastomosis. Dilated bowel that was decompressed and a transition point was noted. The bowel was viable. Next, using position changes, the cecum and right colon were identified and the terminal ileum traced back to the anastomosis. Decompressed bowel and a transition point was noted. The bowel all appeared viable and there being no additional operative concerns at this time, the abdomen was deflated and the trocars removed. The 12 mm trocar site was closed with 0 Polysorb and all skin trocar sites were closed with 4-0 Monocryl subcuticular sutures. The abdomen was then washed and dried, Mastisol and Steri-Strips applied followed by Band-Aids. The patient tolerated the procedures well and was sent to the PACU in stable condition. At her request, I contacted her Bora Coley at [phone] and apprised him of the procedure and findings. His questions seemed to be satisfactorily answered. Importance of her abstaining from alcohol, NSAID and nicotine were reviewed and apparently understood.
[2022-03-03] MEDS: Lactated Ringers 1,000 ML 100 ML IVCONT (15:43)
[2022-03-03] MEDS: 0.9 % Sodium Chloride Flush 3 ML SYRINGE IVFLUSH (15:44)
[2022-03-03] MEDS: Famotidine/PF 20 MG/2 ML VIAL IVPUSH (20:13)
[2022-03-04] VITALS: BP 128/64; PULSE 55; RESP 18; TEMP 37.2; O2SAT 98
[2022-03-04] MEDS: Lactated Ringers 1,000 ML 100 ML IVCONT (02:41)
[2022-03-04] MEDS: Throat Lozenge, Medicated LOZENGE 1 LOZENGE MUCOUS MEM (02:46)
[2022-03-04 03:46] VITALS: BP 127/71; PULSE 54; RESP 18; TEMP 37.1; O2SAT 97
--- NOTE | 2022-03-04 06:36 | HO.POSTANES ---
Post Anesthesia Evaluation Post Anesthesia Evaluation Vital Signs: Vital Signs Temp Pulse Resp BP Pulse Ox 03/04/22 03:46 98.7 F 54 18 127/71 97 03/04/22 00:00 99 F 55 18 128/64 98 03/03/22 19:55 98.3 F 60 18 121/62 100 Anesthesia: General Endotracheal-GETA Mental Status: Awake Pain Control: Satisfactory Nausea/Vomiting: None Hydration: Adequate Anesthesia-Related Issues: No Anes. Related Issues
[2022-03-04 07:02] LABS: Anion Gap 10 (12-20); Blood Urea Nitrogen 7 mg/dL (9-16); Calcium 8.2 mg/dL (8.4-10.2); Carbon Dioxide 21 mmol/L (22-29); Chloride 108 mmol/L (96-108); Creatinine Clr Calc Pharmacy 94.6; Estimated Glomerular Filt Rate > 60; Glucose Random 79 mg/dL (60-115); Potassium 3.9 mmol/L (3.3-5.1); Sodium 135 mmol/L (135-145)
[2022-03-04 07:17] LABS: Basophils Percent Auto 0.1 % (0-2); Hematocrit 26.8 % (37.0-47.0); Hemoglobin 8.4 g/dl (12.0-16.0); Imm Gran Abs Auto 0.03 X10*3/uL (0.00-0.03); Imm Gran Pct Auto 0.3 % (0.0-0.4); Lymphocytes Absolute Auto 2.2 X10*3/uL (1.2-4.9); Lymphocytes Percent Auto 24.9 % (20-40); Mean Corpuscular HGB Conc 31.3 g/dl (31.0-35.0); Mean Corpuscular Hemoglobin 25.1 pg (27.0-33.0); Monocytes Absolute Auto 0.9 X10*3/uL (0.1-1.2); Monocytes Percent Auto 9.9 % (2-11); Neutrophils Absolute Auto 5.6 x10*3/uL (2.0-8.3); Neutrophils Percent Auto 64.8 % (45-73); Red Blood Count 3.35 X10*6/uL (4.20-5.50); Red Cell Distribution Width 15.3 % (11.0-16.0); White Blood Count 8.7 X10*3/uL (4.8-10.8)
[2022-03-04 08:00] VITALS: BP 137/67; PULSE 50; RESP 17; TEMP 36.9; O2SAT 100
[2022-03-04] MEDS: Famotidine/PF 20 MG/2 ML VIAL IVPUSH (08:26)
[2022-03-04] MEDS: 0.9 % Sodium Chloride Flush 3 ML SYRINGE IVFLUSH (08:26)
--- NOTE | 2022-03-04 09:39 | P.DS_ITS ---
DS: Providers Provider Date of Service: 03/04/22 Date of admission: 03/03/22 13:09 Primary care physician: Ronny Lan MD DS: Diagnosis Discharge Diagnosis (1) Ischemia, bowel: Status: Resolved (2) H/O gastric bypass: Status: Acute (3) Gastric ulcer: Status: Resolved (4) Iron deficiency anemia: Status: Acute (5) Gastritis: Status: Resolved (6) Asthma: Status: Acute (7) Anemia: Status: Acute (8) Epigastric pain: Status: Resolved (9) Overweight (BMI 25.0-29.9): Status: Resolved (10) ZHOU positive: Status: Acute DS: Summary Hospital Course Hospital Course: Attending notes and operative report for full details. Briefly, this 51y F who is status post gastric bypass in [facility] approximately 4 years ago and interval upper endoscopy with clipping of a marginal ulcer approximately 3-4 months ago in [facility] presented with severe abdominal pain. She admitted to NSAIDs, alcohol, heavy caffeine use but no nicotine. She was taking urgently to the operating room for an upper endoscopy which confirmed endo clip placement but no evidence of recurrent or persistent marginal ulcer. At laparoscopy, the patient had a single band from her omentum to her anterior abdominal wall incision at the umbilicus that was lysed. Bowel was run from the Julio C limb in an elementary limb and terminal ileum to confirm resolution of the volvulus. By postop day 1, the patient was tolerating bariatric stage I diet. Her hemoglobin had drifted and was retested. When it was found to be stable, she was discharged in improved condition. At her request, I contacted her on the day of discharge in reviewed important dietary and behavioral changes involving NSAIDs, alcohol and caffeine use. His questions seemed to be satisfactorily answered. Status at Discharge Cognitive/behavioral status at discharge: Stable Functional status at discharge: independent ambulation Overall status at discharge: patient is back to baseline Time Spent with Patient Time attestation: Total time spent providing and/or coordinating discharge services: Discharge coordination time: Greater than 30 minutes Quality: Safe Use of Opioids Does Pt have an Active Cancer Diagnosis on the Problem List?: No Quality: Stroke Does the patient have a stroke diagnosis?: No Physical Exam Vital Signs: Vital Signs: Last Vital Signs Temp 98.4 F 03/04/22 08:00 Pulse 50 03/04/22 08:00 Resp 17 03/04/22 08:00 BP 137/67 03/04/22 08:00 Pulse Ox 100 03/04/22 08:00 BMI result Body Mass Index 27.8 DS: Data Data Completed and Pending Completed studies during hospitalization [Text1]: Procedures Control Bleeding in Gastrointestinal Tract, Via Natural or Artificial Opening Endoscopic (11/06/21) Excision of Jejunum, Via Natural or Artificial Opening Endoscopic, Diagnostic (11/06/21) Excision of Stomach, Pylorus, Via Natural or Artificial Opening Endoscopic, Diagnostic (11/06/21) Pending studies at discharge: Pending at discharge 03/03/22 12:23 Surgical [PTH] Routine Labs on day of discharge: Laboratory Results - last 24 hr 03/04/22 03/04/22 06:10 06:10 WBC 8.7 RBC 3.35 L Hgb 8.4 L Hct 26.8 L MCV 80.0 MCH 25.1 L MCHC 31.3 RDW 15.3 Plt Count TNP MPV TNP Immature Gran % (Auto) 0.3 Neut % (Auto) 64.8 Lymph % (Auto) 24.9 [place] % (Auto) 9.9 Eos % (Auto) 0.0 Baso % (Auto) 0.1 Lymph # (Auto) 2.2 [place] # (Auto) 0.9 Eos # (Auto) 0.0 Baso # (Auto) 0.0 Abs Immat Gran (auto) 0.03 Absolute Neuts (auto) 5.6 Absolute Nucleated RBC 0.000 Nucleated RBC % (auto) 0.0 Sodium 135 Potassium 3.9 Chloride 108 Carbon Dioxide 21 L Anion Gap 10 L BUN 7 L Creatinine 0.63 Estim Creat Clear Calc 94.6 Estimated GFR > 60 Random Glucose 79 Calcium 8.2 L Preliminary micro results at discharge 03/03/22 Unknown Routine Culture - Preliminary Abdominal Fluid No growth to date. Anaerobic Culture - Preliminary No growth to date. 03/03/22 05:35 Blood Culture - Preliminary Blood - Venous No growth after 24 hours. 03/03/22 05:14 Blood Culture - Preliminary Blood - Venous No growth after 24 hours. 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; s/p upper endoscopy & laparoscopy, SARA Referrals: Ronny Lan MD [Primary Care Provider] - 1 Week Zoran Arita MD [Physician] - 1 Week Discharge Medications: Continued lansoprazole [Prevacid] 30 mg capsule,delayed release(DR/EC) 30 mg PO DAILY 30 Days Qty: 30 2RF acetaminophen 325 mg Tablet 650 mg PO Q6H PRN (Reason: Pain) 0RF sucralfate 1 gram Tablet 1 g PO QIDACHS Qty: 120 0RF Discontinued cephalexin 500 mg capsule 500 mg PO QID 5 Days Qty: 20 0RF Discharge Orders: Discharge Order (Routine); Ordered 03/04/22 Ordered By: Krystian Musa Diet: other Activity on Discharge: No heavy lifting Stand Alone Forms: Patient Portal Discharge page Activity Restrictions/Additional Instructions: No tub baths, sex or returning to work until discussed at first post op appointment. No exercise, alcohol, tobacco or illegal drug use. Continue to use incentive spirometer hourly while awake. Walk in home for 5- 10 minutes every 2 hours during the first week. Follow all instructions in the bariatric handbook and call with any questions. Discharge Instructions 1. Please call your doctor or come back to the emergency room should any new symptoms arise. Please call the bariatric office at [phone] for an appointment this week. 2. You will receive a courtesy call from [facility] 24-48 hours after discharge. 3. Activity: abstain from alcohol, practice limited stair climbing, no bending, no driving, no exercise, no illicit substances, no lifting, no sex, no tub bath, no work. 4. Diet: continue as discussed with Naheed Lim PA-C in bariatric clinic--clear liquids & protein shakes only, with daily vitamin until you see Dr. Arita in 1 week. You must call for an appointment. 5. Dressing Change/Wound Care: Your incision is covered by bandages and gauze underneath. If the area is tender, you may apply an ice pack for short intervals (no more than 20 minutes on, followed by at least 20 minutes off). Do not apply heat. Do not use creams, lotions, or topical antibiotics unless instructed to do so by your surgeon. These can cause infection or allergic reaction. 6. Call your doctor if: - Your temperature exceeds 101.5 F - You experience excessive pain or swelling - You have an unexpected reaction to medication - You have excessive bleeding - You experience continued vomiting/nausea - Your incision begins to separate - Your incision shows signs of infection such as increased redness, swelling, excessive pain, heat, or drainage (light blood or clear fluid is normal) 7. General instructions: No lifting greater than 5 lbs for the next 4 weeks[address] within 24 hours of taking narcotic pain medications. If you do not move your bowels in the next 2 days, please take milk of magnesia over the counter. Please follow the post op diet and do not advance your diet until you are seen in the office in about 2 weeks. Please walk around your home every hour or two to prevent blood clots from forming in your legs. You do not need to wake from sleeping to walk. Please sleep in a bed or couch to prevent kinking at the hips and knees. Please take your incentive spirometer (your lung apigee developer) home with you and use it for the next few days to prevent pneumonias. You may shower, no hot tubs, baths or swimming pools. Please call the office with any questions or concerns such as increasing abdominal pain, fever, chills, shortness of breath, chest pain, leg pain or swelling, or redness or drainage from your incisions. Please stay on stage 3 diet which includes sugar free clear liquids such as ice pops and jello and broth and crystal light. Avoid all carbonation. Please drink 3 protein shakes with at least 25-30 grams of protein daily or 3 of the Celebrate 4:1 shakes which can be purchased in our office. The Celebrate shakes have all of the bariatric vitamins you need if you consume these shakes. If you are drinking other protein shakes, you will need to purchase the Celebrate multivitamins and calcium that we provide in the office (they will provide all the vitamins you need). Please make sure you are consuming at least 40-60 ounces of water in addition to your 3 protein shakes daily. Do not hesitate to contact the office with any questions at . The patient's medical history has been reviewed and they are considered low risk for post op DVT and therefore DVT prophylaxis is not considered necessary. Travel after surgery was reviewed. The patient has not disclosed any travel plans during the first 30 days after surgery and they have been advised that within the first 30 days after surgery any bus, plane, train or car travel over 2 hours in duration is contraindicated due to the possibility of developing blood clots from immobility. Any travel, needs to include periods of ambulation of 10 minutes in duration every 2 hours.? The patient was instructed to discuss any plans for travel during this period with their bariatric surgeon. Care Plan Goals: Resume safe bariatric diet Health Concerns: prevent marginal ulcer & weight gain Plan of Treatment: follow bariatric diet, no aspirin, Advil/Ibuprofen, Aleve/Naprosyn, Excedrin. No wine or alcoholic beverages Assessment: stable s/p upper endoscopy & laparoscopic lysis of ahesions for volvulus Patient Instructions: Nutrition after Bariatric Surgery (DC) Discharge Date/Time: 03/04/22 15:55
--- NOTE | 2022-03-04 09:45 | P.PNGS_ITS ---
Subjective Subjective Date of Service: 03/06/22 Patient reports: pain is less and tolerating liquids well Interval history: Feels better. Passing gas and tolerating bariatric stage 1 diet Physical Exam Vital Signs: Vital Signs: Last Vital Signs Temp 98.4 F 03/04/22 08:00 Pulse 50 03/04/22 08:00 Resp 17 03/04/22 08:00 BP 137/67 03/04/22 08:00 Pulse Ox 100 03/04/22 08:00 BMI result Body Mass Index 27.8 The patient reports interval improvement. The pain she presented with has resolved. On exam she is nontoxic Abdomen has appropriate tenderness and and dressings are intact Objective Data Active Medications Famotidine (Famotidine/Pf 20 Mg/2 Ml Vial) 20 mg IVPUSH BID [facility] Last Admin: 03/04/22 08:26 Dose: 20 mg Documented by: ANTHONY Lactated Ringer's (Lr) 1,000 mls @ 20 mls/hr IVCONT .Q24H [facility] Last Infusion: 03/04/22 08:26 Dose: 20 mls/hr Documented by: ANTHONY Acetaminophen (Ofirmev) 1,000 mg in 100 mls @ 16.7 mls/hr IV .Q6H [facility] Last Admin: 03/04/22 08:27 Dose: 16.7 mls/hr Documented by: ANTHONY Melatonin (Melatonin 3 Mg Tablet) 3 mg PO BEDTIME PRN PRN Reason: Insomnia Metoclopramide HCl (Metoclopramide Hcl 10 Mg/2 Ml Vial) 10 mg IVPUSH Q6H PRN PRN Reason: Nausea Ondansetron HCl (Ondansetron Hcl 4 Mg/2 Ml Vial) 4 mg IVPUSH Q8H PRN PRN Reason: Nausea and Vomiting Sodium Chloride (0.9 % Sodium Chloride Flush 3 Ml Syringe) 3 ml IVFLUSH QSHIFT [facility] Last Admin: 03/04/22 08:26 Dose: 3 ml Documented by: ANTHONY Labs CBC & Chem 7: 03/04/22 12:56 03/04/22 06:10 Labs: Laboratory Results - last 24 hr 03/04/22 03/04/22 06:10 06:10 MCV 80.0 MCH 25.1 L MCHC 31.3 RDW 15.3 Plt Count TNP MPV TNP Immature Gran % (Auto) 0.3 Neut % (Auto) 64.8 Lymph % (Auto) 24.9 [place] % (Auto) 9.9 Eos % (Auto) 0.0 Baso % (Auto) 0.1 Lymph # (Auto) 2.2 [place] # (Auto) 0.9 Eos # (Auto) 0.0 Baso # (Auto) 0.0 Abs Immat Gran (auto) 0.03 Absolute Neuts (auto) 5.6 Absolute Nucleated RBC 0.000 Nucleated RBC % (auto) 0.0 Anion Gap 10 L Estim Creat Clear Calc 94.6 Estimated GFR > 60 Random Glucose 79 Calcium 8.2 L Microbiology Microbiology Results: Microbiology 03/03/22 Unknown Gram Stain - Final Abdominal Fluid Routine Culture - Preliminary No growth to date. Anaerobic Culture - Preliminary No growth to date. 03/03/22 05:35 Blood Culture - Preliminary Blood - Venous No growth after 24 hours. 03/03/22 05:14 Blood Culture - Preliminary Blood - Venous No growth after 24 hours. Procedures Date of Service Date of Service: 03/04/22 Progress Note: A&P Assessment and plan (1) Volvulus: Status: Acute (2) H/O gastric bypass: Status: Acute (3) Iron deficiency anemia: Status: Acute (4) Asthma: Status: Acute (5) Anemia: Status: Acute (6) HZOU positive: Status: Acute Plan The patient is doing well since her laparoscopic lysis of adhesions. Her hemoglobin has drifted slightly which is likely dilutional, however we will KVO her IV fluids, increase her diet to bariatric stage III and repeat CBC at 13:00. Patient requested I contact her which was done his questions answered. Likely discharge later today when labs return. Follow-up with Dr. Arita within a week. Follow-up with PCP within a week. Patient is instructed to not return to work until cleared by Dr. Arita at her follow-up appointment. Time Spent With Patient Time: Total time spent is greater than 50% in coordination of care (as documented) at patient's floor/unit and/or counseling patient: Quality Stroke Does the patient have a stroke diagnosis?: No VTE Prior VTE?: No VTE Risk Level:: Surgical - moderate VTE Device Contraindication: N/A - Device Ordered VTE Drug Contraindication: N/A - Med Ordered
[2022-03-04 10:24] VITALS: O2SAT 99
[2022-03-04 12:00] VITALS: BP 130/71; PULSE 54; RESP 18; TEMP 36.7; O2SAT 98
[2022-03-04 13:03] LABS: MANUAL DIFF FLAG NO
[2022-03-04 13:32] LABS: Basophils Percent Auto 0.1 % (0-2); Hematocrit 26.9 % (37.0-47.0); Hemoglobin 8.8 g/dl (12.0-16.0); Imm Gran Abs Auto 0.03 X10*3/uL (0.00-0.03); Imm Gran Pct Auto 0.4 % (0.0-0.4); Lymphocytes Absolute Auto 2.9 X10*3/uL (1.2-4.9); Lymphocytes Percent Auto 34.4 % (20-40); Mean Corpuscular HGB Conc 32.7 g/dl (31.0-35.0); Mean Corpuscular Hemoglobin 26.1 pg (27.0-33.0); Mean Corpuscular Volume 79.8 fL (80.0-98.0); Mean Platelet Volume 10.8 fL (9.4-12.3); Monocytes Absolute Auto 0.8 X10*3/uL (0.1-1.2); Monocytes Percent Auto 9.5 % (2-11); Neutrophils Absolute Auto 4.7 x10*3/uL (2.0-8.3); Neutrophils Percent Auto 55.6 % (45-73); Platelet Count 230 X10*3/uL (160-400); Red Blood Count 3.37 X10*6/uL (4.20-5.50); Red Cell Distribution Width 15.2 % (11.0-16.0); White Blood Count 8.4 X10*3/uL (4.8-10.8)
--- NOTE | 2022-03-04 15:32 | MHC.CM.PN ---
PATIENT IS DC PRIOR TO CASE MANAGEMENT ASSESSMENT PLAN IS HOME - SELF CARE FAMILY TO HEAT TREAT OPERATOR AWARE OF PLAN
== END 2022-03-04 15:55 | disposition home or self-care (01) | DRG 224 ==
LOC: HO.ED 03-03 13:12 → HO.EDOVER 03-03 13:24 → HO.S3 03-03 13:50
PROVIDERS: Physician Assistant Surgical; Admitting Provider Surgery; Emergency Provider Student in an Organized Health Care Education/Training Program; PCP Internal Medicine; Visit Provider Surgery
PROC: 0DNW4ZZ Release Peritoneum, Percutaneous Endoscopic Approach (ICD-10-PCS; CPT 49320; principal; 2022-03-03 10:00)
DX: K56.2 Volvulus (principal); R18.8 Other ascites; K66.0 Peritoneal adhesions (postprocedural) (postinfection); D50.9 Iron deficiency anemia, unspecified; R76.0 Raised antibody titer; J45.20 Mild intermittent asthma, uncomplicated; E66.3 Overweight; Z68.27 Body mass index [BMI] 27.0-27.9, adult; Z98.84 Bariatric surgery status; Z20.822 Contact with and (suspected) exposure to COVID-19; Z98.51 Tubal ligation status; Z79.899 Other long term (current) drug therapy
CPT/HCPCS: 36415; 74176; 80048; 80053; 81001; 82248; 83605; 83690; 84702; 85025; 87040; 87071; 87073; 87086; 87205; 87635; 88305; 96361; 96374; 99024; 99284; 99285; J0131; J0330; J0690; J1100; J2405; J3010

== ENCOUNTER → 2022-03-09 15:01 | Outpatient (BNVA) | payer OTHER, SELFPAY | PROVIDERS: PCP Internal Medicine; Visit Provider Surgery | DX: Z13.89 Encounter for screening for other disorder (principal) ==

== ENCOUNTER 2022-03-22 12:21 | Outpatient (REF) | payer OTHER, SELFPAY ==
--- NOTE | ~2022-03-22 | CT_ITS ---
EXAMINATION: CT ABDOMEN AND PELVIS WITH CONTRAST CLINICAL INFORMATION: Epigastric pain. COMPARISON: CT abdomen and pelvis 03/03/2022. TECHNIQUE: Multidetector volumetric images were obtained from the superior aspect of the liver through the pubic symphysis following administration 85 mL of Omnipaque 350 intravenous contrast. Sagittal and coronal reformatted images were obtained on the technologist's workstation. Oral contrast: No This CT examination was performed using dose optimization techniques as appropriate, variously including the following: *Automated exposure control *Adjustment of mA and/or kV according to patient size (this includes techniques or standardized protocols for targeted exams where dose is matched to indication/reason for exam; i.e. extremities or head) *Use of iterative reconstruction technique DLP: 492 mGy-cm FINDINGS: LUNG BASES: The visualized lung bases are unremarkable. LIVER, GALLBLADDER, AND BILIARY TREE: The liver is normal in size, shape, and attenuation. There is a hypoechoic lesion in the posterior segment right hepatic lobe on arterial phase measuring 6.4 x 4.4 cm. On delayed images it appears isointense to liver and may represent focal fatty infiltration. No additional lesions seen. There is no intrahepatic ductal dilatation. The gallbladder has been surgically removed. Mild prominent CBD is seen without any radiopaque calculi. PANCREAS: Unremarkable. SPLEEN: Unremarkable. ADRENAL GLANDS: Bilateral adrenal glands are normal. KIDNEYS AND URETERS: The kidneys are normal in size, shape, and attenuation. No hydronephrosis, hydroureter, or calculi seen. No perinephric stranding. BLADDER: Unremarkable. GASTROINTESTINAL TRACT: There is scattered stool, gas and oral contrast seen throughout the colon and small bowel loops which are normal caliber. Appendix is not seen. There is no free air or free fluid seen. There are gastric bypass changes in the left epigastric region. ABDOMINAL WALL: No significant hernia is appreciated. LYMPH NODES: Normal. VASCULAR: Unremarkable. PELVIC VISCERA: The uterus is anteverted with malpositioned IUD. There is no free fluid. There is no adnexal mass. OSSEOUS STRUCTURES: There is mild posterior spondylosis L5-S1 disc level. No lytic process. CT/CT abdomen pelvis w con IMPRESSION: Hypodense lesion right posterior hepatic segment on arterial phase. It appears isointense to liver on delayed images and is suggestive of focal fatty infiltration. No additional lesions seen. The gallbladder has been surgically removed. Malpositioned IUD within the anteverted uterus. Mild constipation. Fleischner guidelines were followed.
[2022-03-22] MEDS: iohexoL 350 MG/ML 100 ML INFUS..BTL IV (15:20)
[2022-03-22] MEDS: Barium Sulfate Oral (Mocha) 450 ML ORAL.SUSP 900 ML PO (15:21)
== END 2022-03-22 12:22 | disposition home or self-care (01) ==
LOC: HO.CT 12:21
PROVIDERS: Visit Provider Surgery
DX: R10.13 Epigastric pain (principal); Z98.84 Bariatric surgery status
CPT/HCPCS: 74177; Q9967

== ENCOUNTER 2022-04-17 10:25 | Outpatient (REF) | payer OTHER, SELFPAY | END 2022-04-17 10:26 | disposition home or self-care (01) | LOC: HO.LAB 10:25 | PROVIDERS: PCP Internal Medicine; Visit Provider Obstetrics & Gynecology | DX: R87.612 Low grade squamous intraepithelial lesion on cytologic smear of cervix (LGSIL) (principal); N92.0 Excessive and frequent menstruation with regular cycle; Z32.02 Encounter for pregnancy test, result negative; D50.9 Iron deficiency anemia, unspecified | CPT/HCPCS: 57454; 81025; 88305; 88341; 88342; 88360; 99212 ==

== ENCOUNTER → 2022-04-24 15:30 | Outpatient (BNVA) | payer OTHER, SELFPAY | PROVIDERS: PCP Internal Medicine; Visit Provider Obstetrics & Gynecology | DX: N87.1 Moderate cervical dysplasia (principal) | CPT/HCPCS: 99212 ==

== ENCOUNTER 2022-05-11 08:37 | Day surgery (SDC) | payer OTHER, SELFPAY ==
[2022-05-04 13:25] VITALS: BMI 26.4
--- NOTE | 2022-05-09 15:00 | P.CONAN_ITS ---
Documented by User: Alisson Barrett NP 05/09/22 15:01 HPI - Anesthesia Eval Consult details Narrative: 51yo F for LEEP PMFSH Active Problems Active Problems: All Active Problems (Updated 04/24/22 @ 15:36 by Clayton Barber MD) Varicose veins of right lower extremity with inflammation (Acute) Anemia (Acute) Iron deficiency anemia (Acute) Encounter for annual routine gynecological examination (Acute) Dysmenorrhea (Acute) Heavy menstrual bleeding (Acute) LGSIL on Pap smear of cervix (Acute) EDEN II (cervical intraepithelial neoplasia II) (Acute) Abdominal pain (Acute) H/O gastric bypass (Acute ~2018) Asthma (Acute) ZHOU positive (Acute) Past Medical History Medical History (Updated 04/24/22 @ 15:36 by Clayton Barber MD) Abdominal pain ZHOU positive Asthma Gastritis Left sided abdominal pain Overweight (BMI 25.0-29.9) Varicose veins of bilateral lower extremities with pain Family History Family History Father HTN (hypertension) Diabetes mellitus Mother HTN (hypertension) Diabetes mellitus Asthma Brother No problems noted. Brother No problems noted. Brother No problems noted. Brother No problems noted. Sister No problems noted. Daughter No problems noted. Son No problems noted. Son No problems noted. Paternal Aunt Breast cancer Family/Other Colon cancer Maternal Aunt Ovarian cancer Family history of problems with anesthesia: No Surgical History Surgical History (Updated 05/04/22 @ 13:23 by Jania Herr RN) H/O gastric bypass (~2017) H/O tubal ligation Hx of cholecystectomy (~2014) Hx of laparoscopy Status post laser ablation of incompetent vein History of Problems with Anesthesia: No Social History Social History Household Members: Spouse Housing: House Do you presently have visiting nurse or other home services: No Alcohol intake: never Patient Tobacco Use Status: Never used Tobacco Second Hand Smoke Exposure: No Use of substances other than those prescribed or required for medical reasons: No Are you DNR?: No Advance Directives: No Advance Directives Information Provided: Yes Advance Directives on File: No service: No Current occupational status: employed Meds Allergies Allergy/AdvReac Type Severity Reaction Status Date / Time No Known Allergies Allergy Verified 03/15/22 14:39 [No Known Allergies*] Home Medications Medication Instructions Recorded Confirmed Last Taken Type acetaminophen 325 mg tablet 650 mg PO Q6H PRN Pain 03/03/22 03/15/22 Unknown History Exam Exam Date and Time: May 09, 2022 1500 Height,Weight and Vital Signs: Height 5 ft 1 in Weight 63.503 kg Pertinent Lab Results Pertinent Lab Results: Laboratory Tests 03/04/22 03/04/22 06:10 12:56 WBC 8.4 Hgb 8.8 L Hct 26.9 L Plt Count 230 Sodium 135 Potassium 3.9 Chloride 108 Carbon Dioxide 21 L BUN 7 L Creatinine 0.63 Assessment and Plan Assessment Anesthesia Assessment: Chart Reviewed Final Anesthetic Review Family History of Problems with Anesthesia: No History of Problems with Anesthesia: No Documented by User: Gerry Archer MD 05/11/22 10:49 [facility] Past Medical History Medical History (Updated 04/24/22 @ 15:36 by Clayton Barber MD) Abdominal pain ZHOU positive Asthma Gastritis Left sided abdominal pain Overweight (BMI 25.0-29.9) Varicose veins of bilateral lower extremities with pain Family History Family History Father HTN (hypertension) Diabetes mellitus Mother HTN (hypertension) Diabetes mellitus Asthma Brother No problems noted. Brother No problems noted. Brother No problems noted. Brother No problems noted. Sister No problems noted. Daughter No problems noted. Son No problems noted. Son No problems noted. Paternal Aunt Breast cancer Family/Other Colon cancer Maternal Aunt Ovarian cancer Surgical History Surgical History (Updated 05/04/22 @ 13:23 by Jania Herr RN) H/O gastric bypass (~2017) H/O tubal ligation Hx of cholecystectomy (~2014) Hx of laparoscopy Status post laser ablation of incompetent vein Social History Social History Household Members: Spouse Housing: House Do you presently have visiting nurse or other home services: No Alcohol intake: never Patient Tobacco Use Status: Never used Tobacco Second Hand Smoke Exposure: No Use of substances other than those prescribed or required for medical reasons: No Are you DNR?: No Advance Directives: No Advance Directives Information Provided: Yes Advance Directives on File: No service: No Current occupational status: employed Meds Allergies Allergy/AdvReac Type Severity Reaction Status Date / Time No Known Allergies Allergy Verified 03/15/22 14:39 [No Known Allergies*] Home Medications Medication Instructions Recorded Confirmed Last Taken Type acetaminophen 325 mg tablet 650 mg PO Q6H PRN Pain 03/03/22 03/15/22 Unknown History Exam Airway Mallampati Class: I TM Dist: >3cm Neck ROM: Full Loose/Missing/Broken Teeth: No Heart: rrr Lungs: clear Assessment and Plan Final Anesthetic Review NPO: Yes ASA Class: II Final Preanesthetic Review: No Changes in Pt Med Stat, Meds/Allgs Chart Reviewed, Consent Obtained/Reviewed and Anes Risks/Benef Reviewed
[2022-05-11] VITALS (7 sets, daily range): BP systolic 119–147; BP diastolic 62–80; PULSE 46–65; RESP 13–17; TEMP 36.3–36.4; O2SAT 100
[2022-05-11 09:26] LABS: UPreg QC Valid YES; Urine Pregnancy NEGATIVE (NEGATIVE)
[2022-05-11] MEDS: Lactated Ringers 1,000 ML 100 ML IVCONT (09:31)
--- NOTE | 2022-05-11 09:45 | MHC.SHP ---
Pre-Procedural Eval Section A Date of Service: 05/11/22 The patient is an INPATIENT: No Changes since office visit: No Cold of Flu in the past 2 weeks, No New Medical Problems, No Changes in Medication and No Patient answered all questions The History & Physical has been completed within 30 days and I have reviewed it.: Yes Section B Chief Complaint: amberly 2 Allergies: Allergies Allergy/AdvReac Type Severity Reaction Status Date / Time No Known Allergies Allergy Verified 03/15/22 14:39 [No Known Allergies*] Plan Diagnosis/Plan: Change I have reviewed the history and physical and performed a pertinent physical examination on my patient. No changes have occurred unless specified. Since the patient has Mirena IUD , I discussed with the patient the possibility of the IUD string being cut during the LEEP procedure, I counseled the patient regarding regarding the options of treatment including IUD removal and insertion during the LEEP procedure orkeep IUD in plays with the potential risk of cutting the IUD string with the possibility of problems with IUD removed in the future, the patient decided to proceed with IUD removal and reinsertion during the procedure, which was added to the consent, the patient agreed and initialed the addition on the surgical consent
--- NOTE | 2022-05-11 11:24 | PM.OP ---
Brief Operative Note Date of Service: 05/11/22 Pre-op diagnosis: Pre op diagnosis: EDEN 2 with negative ECC Operation: Colposcopy, Loop electrical excision procedure cone, post cone ECC with Mirena IUD removal and reinsertion Postop diagnosis: the same Quantitative blood loss: 50 cc Surgeon: Clayton Barber MD End Finder Twisting Department: None Pathology: Cervical cone, endo cervical curettage with Mirena IUD removal re-excision Complications: none Anesthesia: MAC and Para cervical block Procedure: The patient was put in a dorsal lithotomy position, scrubbed and draped in the usual sterile fashion. A speculum was inserted inside the patient's vagina.Using long Argenis clamp, the IUD string was grasped at the Mirena IUD removed without any complication. The cervix was then assessed using the colposcope with acetic acid , the lesions were seen, and at least 1 cm of the squamocolumnar junction was observed. A large-sized loop was selected based upon the diameter of the lesion. Lugol solution was used to outline the lesions and area of the transformation zone order to be removed 10 cc of xylocaine with epinephrine were injected submucosally into the surface of the cervix (ectocervix) at the 3, 6, 9, and 12 o'clock positions. The electrosurgical generator is set at 40 moralez on blend 1. The loop is carefully passed simultaneously around and under the transformation zone, in order to ensure excising it making sure the lesion is at least 5 mm far from the specimen margins . The loop was allowed to glide through the cervix from one side to the other, allowing the cutting current to divide the tissue, endo cervical top-hat excision was performed An endo cervical curettage is performed following completion of excision, and hemostasis is obtained with a Ball electrode or regular tip cautery. A tenaculum was placed and the anterior lip of the cervix. A plastic sound was advanced through the external and internal os until it reached the fundus of the uterus, the depth was 8 cm. The sound was then withdrawn. The IUD was loaded in a sterile manner and advanced into position. The string was visualized and cut to 3 cm. Tenaculum site hemostatic. NO complications were noted. At the end, Monsel's solution was applied to the cone bed. The patient tolerated the procedure well and, all instruments were taken out of the patient vaginal cavity, and the patient was transferred to the PACU in stable condition. Surgeon: Clayton Barber MD Was an End Finder Twisting Department used for this Procedure?: No Estimated blood loss (mL): 50
== END 2022-05-11 12:45 | disposition home or self-care (01) ==
PROVIDERS: PCP Internal Medicine; Visit Provider Obstetrics & Gynecology
PROC: 0UBC7ZZ Excision of Cervix, Via Natural or Artificial Opening (ICD-10-PCS; CPT 57522; principal; 2022-05-11 12:10)
DX: N87.1 Moderate cervical dysplasia (principal); J45.909 Unspecified asthma, uncomplicated; R76.0 Raised antibody titer; E66.3 Overweight; Z68.26 Body mass index [BMI] 26.0-26.9, adult; Z98.51 Tubal ligation status; Z90.49 Acquired absence of other specified parts of digestive tract; Z98.84 Bariatric surgery status
CPT/HCPCS: 57461; 58301; 58300; 81025; 88305; 88307; 88342; 88360; J1100; J2250; J2405; J3010; J7298

== ENCOUNTER 2022-05-15 10:13 | Outpatient (REF) | payer OTHER, SELFPAY ==
[2022-05-15 15:16] LABS: CT PCR NOT DETECTED (Not Detect.); NG PCR NOT DETECTED (Not Detect.)
[2022-05-16 14:19] LABS: BV Int Neg Control Negative (Negative); BV Int Pos Control Positive (Positive)
== END 2022-05-15 10:14 | disposition home or self-care (01) ==
LOC: HO.LAB 10:13
PROVIDERS: Visit Provider Obstetrics & Gynecology
DX: Z11.3 Encounter for screening for infections with a predominantly sexual mode of transmission (principal); R10.2 Pelvic and perineal pain
CPT/HCPCS: 87086; 87480; 87491; 87510; 87591; 87660; 99212

== ENCOUNTER → 2022-06-05 14:58 | Outpatient (BNVA) | payer OTHER, SELFPAY | PROVIDERS: PCP Internal Medicine; Visit Provider Obstetrics & Gynecology | DX: N87.1 Moderate cervical dysplasia (principal) | CPT/HCPCS: 99212 ==

== ENCOUNTER 2022-07-18 14:51 | Outpatient (REF) | payer OTHER, SELFPAY ==
[2022-07-18 16:10] LABS: Hematocrit 31.4 % (37.0-47.0); Hemoglobin 9.5 g/dl (12.0-16.0); Mean Corpuscular HGB Conc 30.3 g/dl (31.0-35.0); Mean Platelet Volume 10.7 fL (9.4-12.3); Platelet Count 252 X10*3/uL (160-400); Red Blood Count 4.13 X10*6/uL (4.20-5.50); Red Cell Distribution Width 17.3 % (11.0-16.0); White Blood Count 6.2 X10*3/uL (4.8-10.8)
== END 2022-07-18 14:52 | disposition home or self-care (01) ==
LOC: HO.LAB 14:51
PROVIDERS: PCP Internal Medicine; Visit Provider Obstetrics & Gynecology
DX: N92.0 Excessive and frequent menstruation with regular cycle (principal); D50.9 Iron deficiency anemia, unspecified
CPT/HCPCS: 36415; 85027

== ENCOUNTER → 2022-07-25 14:57 | Outpatient (BNVA) | payer OTHER, SELFPAY | PROVIDERS: PCP Internal Medicine; Visit Provider Obstetrics & Gynecology | DX: N92.0 Excessive and frequent menstruation with regular cycle (principal) | CPT/HCPCS: 99212 ==

== ENCOUNTER 2022-08-15 16:09 | Outpatient (REF) | payer OTHER, SELFPAY ==
--- NOTE | ~2022-08-15 | MM_ITS ---
EXAMINATION: MM SCREENING DIGITAL BREAST TOMOSYNTHESIS, BILATERAL CLINICAL INFORMATION: Screening. Asymptomatic. COMPARISON: Mammography: 08/14/2021, 07/13/2020 TECHNIQUE: Digital breast tomosynthesis is performed in both the craniocaudal and mediolateral oblique views along with computer-aided detection (CAD). Synthesized 2D images are generated from the tomosynthesis. Additional exaggerated right CC view is provided. FINDINGS: There are scattered areas of fibroglandular density (ACR BI-RADS breast composition Category b). There are no significant masses, abnormal calcifications, or other abnormalities. Parenchymal pattern is similar to prior studies. There is no developing density or architectural abnormality. The axilla and skin contours are unremarkable. No significant changes. MM/MM tomosynthesis screening BI IMPRESSION: No mammographic evidence of malignancy. ASSESSMENT: BI-RADS 1: Negative RECOMMENDATION: Routine annual mammography screening. This patient's information was entered into a reminder system with a target due date for their next mammogram.
== END 2022-08-15 16:10 | disposition home or self-care (01) ==
LOC: HO.MAMMO 16:09
PROVIDERS: PCP Internal Medicine; Visit Provider Internal Medicine
DX: Z12.31 Encounter for screening mammogram for malignant neoplasm of breast (principal)
CPT/HCPCS: 77063; 77067

== ENCOUNTER 2022-09-10 14:51 | Outpatient (REF) | payer OTHER, SELFPAY ==
[2022-09-10 15:09] LABS: MANUAL DIFF FLAG NO
[2022-09-10 15:47] LABS: Basophils Percent Auto 0.5 % (0-2); Eosinophils Percent Auto 0.2 % (0-4); Hematocrit 33.3 % (37.0-47.0); Hemoglobin 10.3 g/dl (12.0-16.0); Imm Gran Abs Auto 0.02 X10*3/uL (0.00-0.03); Imm Gran Pct Auto 0.3 % (0.0-0.4); Lymphocytes Percent Auto 31.7 % (20-40); Mean Corpuscular HGB Conc 30.9 g/dl (31.0-35.0); Mean Corpuscular Hemoglobin 24.1 pg (27.0-33.0); Mean Corpuscular Volume 77.8 fL (80.0-98.0); Mean Platelet Volume 11.4 fL (9.4-12.3); Monocytes Absolute Auto 0.5 X10*3/uL (0.1-1.2); Neutrophils Absolute Auto 3.7 x10*3/uL (2.0-8.3); Neutrophils Percent Auto 59.3 % (45-73); Platelet Count 258 X10*3/uL (160-400); Red Blood Count 4.28 X10*6/uL (4.20-5.50); Red Cell Distribution Width 19.1 % (11.0-16.0); White Blood Count 6.2 X10*3/uL (4.8-10.8)
[2022-09-10 16:34] LABS: Alanine Aminotransferase 11 U/L (0-31); Albumin Level 3.9 g/dL (3.5-5.0); Alkaline Phosphatase 59 U/L (39-117); Anion Gap 10 (12-20); Aspartate Amino Transferase 16 U/L (5-31); Bilirubin Total 0.3 mg/dL (0.0-1.0); Blood Urea Nitrogen 15 mg/dL (9-16); Calcium 8.5 mg/dL (8.4-10.2); Carbon Dioxide 26 mmol/L (22-29); Chloride 109 mmol/L (96-108); Estimated Glomerular Filt Rate > 60; Glucose Random 99 mg/dL (60-115); Iron 335 mcg/dL (30-160); Percent Iron Saturation 93 % (15-50); Sodium 141 mmol/L (135-145); TSH reflex Free T4 0.77 uIU/mL (0.32-4.0); Total Iron Binding Capacity 362 mcg/dL (228-428); Total Protein 6.4 g/dL (6.5-8.0); Unsaturated Iron Binding 27 ug/dL; Vitamin D 25-OH Total 29.5 ng/mL (>30)
== END 2022-09-10 14:52 | disposition home or self-care (01) ==
LOC: HO.LAB 14:51
PROVIDERS: PCP Internal Medicine; Visit Provider Internal Medicine
DX: J45.909 Unspecified asthma, uncomplicated (principal); E55.9 Vitamin D deficiency, unspecified; D50.9 Iron deficiency anemia, unspecified; Z98.84 Bariatric surgery status
CPT/HCPCS: 36415; 80053; 82306; 83540; 84443; 85025

== ENCOUNTER 2022-09-17 15:20 | Outpatient (REF) | payer OTHER, SELFPAY ==
[2022-09-17 15:46] LABS: Appearance Urine Cloudy; Color Urine Dark Yellow; Glucose Urine UA Negative (Negative); Leukocyte Esterase Urine Negative (Negative); Nitrite Urine Positive (Negative); PH 5.5 (5.0-9.0); Specific Gravity - Urine >= 1.030 (1.005-1.025); UMIC TRIGGER UACC YES; Urine Blood Moderate (2+) (Negative); Urine Ketones Trace mg/dL (Negative); Urine Protein Trace mg/dL (Neg-Trace)
[2022-09-17 16:01] LABS: Bacteria Urine 4+ (None Seen); RBC Urine 0-2 /HPF (0-2); UACC Culture Trigger YES; WBC Urine 0-5 /HPF (0-5)
== END 2022-09-17 15:21 | disposition home or self-care (01) ==
LOC: HO.LNP 15:20
PROVIDERS: Visit Provider Internal Medicine
DX: R30.0 Dysuria (principal); D64.9 Anemia, unspecified; J45.909 Unspecified asthma, uncomplicated; Z98.84 Bariatric surgery status
CPT/HCPCS: 81001; 87086; 87088; 87186

== ENCOUNTER → 2022-10-30 15:22 | Outpatient (BNVA) | payer OTHER, SELFPAY | PROVIDERS: PCP Internal Medicine; Visit Provider Obstetrics & Gynecology | DX: N92.0 Excessive and frequent menstruation with regular cycle (principal); Z97.5 Presence of (intrauterine) contraceptive device | CPT/HCPCS: 99212 ==

== ENCOUNTER 2022-11-14 14:50 | Outpatient (REF) | payer OTHER, SELFPAY ==
[2022-11-14 15:07] LABS: MANUAL DIFF FLAG NO
[2022-11-14 15:19] LABS: Basophils Percent Auto 0.3 % (0-2); Eosinophils Percent Auto 0.6 % (0-4); Hematocrit 35.3 % (37.0-47.0); Hemoglobin 11.3 g/dl (12.0-16.0); Imm Gran Abs Auto 0.02 X10*3/uL (0.00-0.03); Imm Gran Pct Auto 0.3 % (0.0-0.4); Lymphocytes Absolute Auto 2.3 X10*3/uL (1.2-4.9); Lymphocytes Percent Auto 34.1 % (20-40); Mean Corpuscular Hemoglobin 26.1 pg (27.0-33.0); Mean Corpuscular Volume 81.5 fL (80.0-98.0); Mean Platelet Volume 10.9 fL (9.4-12.3); Monocytes Absolute Auto 0.5 X10*3/uL (0.1-1.2); Monocytes Percent Auto 7.2 % (2-11); Neutrophils Absolute Auto 3.9 x10*3/uL (2.0-8.3); Neutrophils Percent Auto 57.5 % (45-73); Platelet Count 257 X10*3/uL (160-400); Red Blood Count 4.33 X10*6/uL (4.20-5.50); Red Cell Distribution Width 17.4 % (11.0-16.0); White Blood Count 6.8 X10*3/uL (4.8-10.8)
[2022-11-14 15:43] LABS: Appearance Urine Cloudy; Color Urine Yellow; Glucose Urine UA Negative (Negative); Leukocyte Esterase Urine Trace (Negative); Nitrite Urine Negative (Negative); PH 6.5 (5.0-9.0); Specific Gravity - Urine 1.025 (1.005-1.025); UMIC TRIGGER UACC YES; Urine Blood Negative (Negative); Urine Ketones Negative (Negative); Urine Protein Negative (Neg-Trace)
[2022-11-14 15:52] LABS: Bacteria Urine Trace (None Seen); Hyaline Casts Urine 0-2 /LPF (0-2); WBC Urine 0-5 /HPF (0-5)
[2022-11-14 15:53] LABS: Calcium Oxalate Crystals Urine Present
[2022-11-14 15:59] LABS: TSH reflex Free T4 0.74 uIU/mL (0.32-4.0); Vitamin D 25-OH Total 31.9 ng/mL (>30)
== END 2022-11-14 14:51 | disposition home or self-care (01) ==
LOC: HO.LAB 14:50
PROVIDERS: PCP Internal Medicine; Visit Provider Obstetrics & Gynecology
DX: Z00.00 Encounter for general adult medical examination without abnormal findings (principal); D64.9 Anemia, unspecified; J45.909 Unspecified asthma, uncomplicated; E55.9 Vitamin D deficiency, unspecified; R30.0 Dysuria; N92.0 Excessive and frequent menstruation with regular cycle; E78.00 Pure hypercholesterolemia, unspecified; Z98.84 Bariatric surgery status
CPT/HCPCS: 36415; 81001; 82306; 84443; 85025

== ENCOUNTER 2022-11-29 10:58 | Emergency (ER) | payer OTHER, SELFPAY ==
--- NOTE | ~2022-11-29 | XR_ITS ---
EXAMINATION: XR TIBIA AND FIBULA, RIGHT CLINICAL INFORMATION: Proximal lateral bruising and pain COMPARISON: None TECHNIQUE: AP and lateral views of the right tibia and fibula were obtained. FINDINGS: There is some narrowing of the lateral joint space compartment of the knee. There is spurring of the patellofemoral joint. No acute fracture or dislocation of the right tibia or fibula identified. No significant soft tissue swelling is seen. No destructive bony lesion. XR/XR tibia fibula RT 2V IMPRESSION: No significant bony abnormality of the right tibia or fibula identified.
[2022-11-29 11:07] VITALS: BP 142/98; PULSE 80; O2SAT 97
--- NOTE | 2022-11-29 11:46 | ED.LOWEXIN ---
HPI - Extremity Injury (Lower) General Chief Complaint: Extremity Injury, Lower <Mariposa Arce CNP - Last Filed: 11/29/22 11:51> Stated Complaint: RLE SWELLING PER EMS <Mariposa Arce CNP - Last Filed: 11/29/22 11:51> Time Seen by Provider: 11/29/22 12:17 <Mariposa Arce CNP - Last Filed: 11/29/22 11:51> Source: patient <ASHUTOSH Brown - Last Filed: 11/29/22 18:29> Mode of arrival: ambulatory <ASHUTOSH Brown - Last Filed: 11/29/22 18:29> Limitations: no limitations <ASHUTOSH Brown - Last Filed: 11/29/22 18:29> History of Present Illness HPI Narrative: 52 y/o female with history of asthma, anemia who is presenting for evaluation of a tender, swollen bruise on the lower portion of her right leg that she noticed today when she was rubbing her leg. She denies any known injury. She reports tenderness to the area and cannot recall hitting it against anything in the last 2-3 days. She reports pain with ambulation. She noticed it when she was at work today. She denies any calf swelling or tenderness. No leg swelling. No chest pain or shortness of breath. She is not on blood thinners. She denies any redness to the area, fever, chills. <ASHUTOSH Brown - Last Filed: 11/29/22 18:29> MD complaint: leg injury <ASHUTOSH Brown - Last Filed: 11/29/22 18:29> Onset (ago): hour(s) <ASHUTOSH Brown Last Filed: 11/29/22 18:29> Type of Injury: unknown <ASHUTOSH Brown Last Filed: 11/29/22 18:29> Severity: moderate <ASHUTOSH Brown Last Filed: 11/29/22 18:29> Severity scale (1-10): 5 <ASHUTOSH Brown Last Filed: 11/29/22 18:29> Relieving factors: nothing <ASHUTOSH Brown Last Filed: 11/29/22 18:29> Exacerbating factors: weight bearing and palpation <ASHUTOSH Brown - Last Filed: 11/29/22 18:29> Associated symptoms: ambulatory <ASHUTOSH Brown - Last Filed: 11/29/22 18:29> Other symptoms: none <ASHUTOSH Brown - Last Filed: 11/29/22 18:29> Related Data Home Medications: Home Medications Medication Instructions Recorded Confirmed acetaminophen 325 mg tablet 650 mg PO Q6H PRN Pain 03/03/22 09/07/22 ferrous sulfate 325 mg (65 mg 325 mg PO DAILY 09/07/22 09/07/22 iron) tablet,delayed release Previous Rx's Medication Instructions Recorded lansoprazole 30 mg capsule,delayed 30 mg PO DAILY 30 days #30 caps 05/30/22 release (Prevacid) albuterol sulfate 90 mcg/actuation 1 inh inhalation QID PRN shortness 05/31/22 aerosol inhaler (ProAir HFA) of breath or wheezing 30 days #8.5 grams ibuprofen 600 mg tablet 600 mg PO Q8H PRN pain #20 tabs 11/29/22 <Mariposa Arce CNP - Last Filed: 11/29/22 11:51> Allergies/Adverse Reactions: Allergies Allergy/AdvReac Type Severity Reaction Status Date / Time No Known Allergies Allergy Verified 11/13/22 16:18 [No Known Allergies*] <Mariposa Arce CNP - Last Filed: 11/29/22 11:51> Review of Systems Review of Systems: Yes all other systems are reviewed and are negative <ASHUTOSH Brown - Last Filed: 11/29/22 18:29> PMF Past Medical History Medical History: Medical History Abdominal pain ZHOU positive Asthma Gastritis GERD without esophagitis Left sided abdominal pain Overweight (BMI 25.0-29.9) Varicose veins of bilateral lower extremities with pain <Mariposa Arce CNP - Last Filed: 11/29/22 11:51> Surgical History: Surgical History H/O gastric bypass (~2018) H/O tubal ligation Hx of cholecystectomy (~2014) Hx of laparoscopy Status post laser ablation of incompetent vein <Mariposa Arce CNP - Last Filed: 11/29/22 11:51> Family History Family History: Family History Father HTN (hypertension) Diabetes mellitus Mother HTN (hypertension) Diabetes mellitus Asthma Brother No problems noted. Brother No problems noted. Brother No problems noted. Brother No problems noted. Sister No problems noted. Daughter No problems noted. Son No problems noted. Son No problems noted. Paternal Aunt Breast cancer Family/Other Colon cancer Maternal Aunt Ovarian cancer <Mariposa Arce CNP - Last Filed: 11/29/22 11:51> Social History Social History: Social History Household Members: Spouse Housing: House Do you presently have visiting nurse or other home services: No Alcohol intake: never Patient Tobacco Use Status: Never used Tobacco Second Hand Smoke Exposure: No Advance Directives: No service: No Current occupational status: employed Cognitive needs: No Hearing needs: No Vision needs: No <Mariposa Arce CNP - Last Filed: 11/29/22 11:51> Physical Exam Vital Signs: Vital Signs: Last Vital Signs Temp 97.2 F 11/29/22 11:47 Pulse 61 11/29/22 11:47 Resp 16 11/29/22 11:47 BP 148/74 H 11/29/22 11:47 Pulse Ox 99 11/29/22 11:47 O2 Del Method 11/29/22 11:47 BMI result Body Mass Index 27.0 <Mariposa Arce CNP - Last Filed: 11/29/22 11:51> Vital Signs: Last Vital Signs Temp 97.2 F 11/29/22 11:47 Pulse 61 11/29/22 11:47 Resp 16 11/29/22 11:47 BP 148/74 H 11/29/22 11:47 Pulse Ox 99 11/29/22 11:47 O2 Del Method 11/29/22 11:47 BMI result Body Mass Index 27.0 <ASHUTOSH Brown - Last Filed: 11/29/22 18:29> Appearance: Alert. Oriented X3. No acute distress. HEENT: normal inspection CVS: Normal heart rate and rhythm. Pulses normal. Respiratory: No respiratory distress. Skin: Skin warm and dry. Normal skin color. Normal skin turgor. No rashes. Extremities: right lower extremity with a 2.5 area of ecchymosis, mild swelling and tenderness to the proximal anterior lower leg, no surrounding erythema, no calf tenderness. normal inspection and ROM of both the right knee and ankle Neuro: Oriented X 3. No motor deficit. No sensory deficit. <ASHUTOSH Brown - Last Filed: 11/29/22 18:29> Course Course Course Narrative: This is an RME: Additional HPI, ROS, PE not included below will be deferred to primary provider. Patient is a 52-year-old female who presents emergency department for evaluation of right lower extremity concern. She reports sudden onset of right lateral proximal lower leg pain/ swelling without any reported injury. Reports a history of a blood clot to E 12 years ago in [place], I received injections for it , states they were unsure what caused it but she has not been on chronic anticoagulants. Denies chest pain, shortness of breath. PE: Right lateral proximal lower extremity, just below the knee appears to have hematoma/bruising Plan: labs, D-dimer, XR tib/fib <Mariposa Arce CNP - Last Filed: 11/29/22 11:51> Reevaluation(s) Reevaluation #1: DDIMER negative. platelets and coags normal exam and clinical presentation are c/w a hematoma. Will place in GERA for compression. discussed RICE. stable for d/c home <ASHUTOSH Brown - Last Filed: 11/29/22 18:29> Medical Decision Making Differential Diagnosis Differential Diagnoses: The differential diagnosis associated with the presentation includes <ASHUTOSH Brown - Last Filed: 11/29/22 18:29> hematoma, superficial thrombophlebitis, DVT, cellulitis, less likely tib/fib fx <ASHUTOSH Brown - Last Filed: 11/29/22 18:29> Lab Data MDM Lab Attestation statement: I reviewed the patient's lab results. <ASHUTOSH Brown - Last Filed: 02/23/23 18:29> Result Diagrams: 11/29/22 11:56 11/29/22 11:56 <Mariposa Arce CNP - Last Filed: 11/29/22 11:51> Labs: Lab Results 11/29/22 11/29/22 11/29/22 Range/Units 11:56 11:56 11:56 WBC 7.2 (4.8-10.8) X10*3/uL RBC 4.44 (4.20-5.50) X10*6/uL Hgb 11.5 L (12.0-16.0) g/dl Hct 36.0 L (37.0-47.0) % MCV 81.1 (80.0-98.0) fL MCH 25.9 L (27.0-33.0) pg MCHC 31.9 (31.0-35.0) g/dl RDW 16.7 H (11.0-16.0) % Plt Count 225 (160-400) X10*3/uL MPV 9.9 (9.4-12.3) fL Immature Gran % (Auto) 0.3 (0.0-0.4) % Neut % (Auto) 63.9 (45-73) % Lymph % (Auto) 26.2 (20-40) % [place] % (Auto) 9.0 (2-11) % Eos % (Auto) 0.3 (0-4) % Baso % (Auto) 0.3 (0-2) % Lymph # (Auto) 1.9 (1.2-4.9) X10*3/uL [place] # (Auto) 0.7 (0.1-1.2) X10*3/uL Eos # (Auto) 0.0 (0.0-0.4) X10*3/uL Baso # (Auto) 0.0 (0.0-0.2) X10*3/uL Abs Immat Gran (auto) 0.02 (0.00-0.03) X10*3/uL Absolute Neuts (auto) 4.6 (2.0-8.3) x10*3/uL Absolute Nucleated RBC 0.000 (0.0-0.012) X10*3/uL Nucleated RBC % (auto) 0.0 (0.0-0.2) /100WBC PT 11.2 (10.0-13.1) SEC INR 1.0 (0.9-1.1) D-Dimer High Sensitivty < 150 NG/ML Sodium 141 (135-145) mmol/L Potassium 4.4 (3.3-5.1) mmol/L Chloride 109 H (96-108) mmol/L Carbon Dioxide 27 (22-29) mmol/L Anion Gap 9 L (12-20) BUN 13 (9-16) mg/dL Creatinine 0.68 (0.5-1.4) mg/dL Estim Creat Clear Calc 85.3 Estimated GFR > 60 Random Glucose 83 (60-115) mg/dL Calcium 8.6 (8.4-10.2) mg/dL Total Bilirubin 0.4 (0.0-1.0) mg/dL AST 15 (5-31) U/L ALT 13 (0-31) U/L Alkaline Phosphatase 59 (39-117) U/L Total Protein 6.0 L (6.5-8.0) g/dL Albumin 3.5 (3.5-5.0) g/dL <Mariposa Arce, PATIENT REGISTRATION CLERK - Last Filed: 11/29/22 11:51> Lab Results 11/29/22 11/29/22 11/29/22 Range/Units 11:56 11:56 11:56 WBC 7.2 (4.8-10.8) X10*3/uL RBC 4.44 (4.20-5.50) X10*6/uL Hgb 11.5 L (12.0-16.0) g/dl Hct 36.0 L (37.0-47.0) % MCV 81.1 (80.0-98.0) fL MCH 25.9 L (27.0-33.0) pg MCHC 31.9 (31.0-35.0) g/dl RDW 16.7 H (11.0-16.0) % Plt Count 225 (160-400) X10*3/uL MPV 9.9 (9.4-12.3) fL Immature Gran % (Auto) 0.3 (0.0-0.4) % Neut % (Auto) 63.9 (45-73) % Lymph % (Auto) 26.2 (20-40) % [place] % (Auto) 9.0 (2-11) % Eos % (Auto) 0.3 (0-4) % Baso % (Auto) 0.3 (0-2) % Lymph # (Auto) 1.9 (1.2-4.9) X10*3/uL [place] # (Auto) 0.7 (0.1-1.2) X10*3/uL Eos # (Auto) 0.0 (0.0-0.4) X10*3/uL Baso # (Auto) 0.0 (0.0-0.2) X10*3/uL Abs Immat Gran (auto) 0.02 (0.00-0.03) X10*3/uL Absolute Neuts (auto) 4.6 (2.0-8.3) x10*3/uL Absolute Nucleated RBC 0.000 (0.0-0.012) X10*3/uL Nucleated RBC % (auto) 0.0 (0.0-0.2) /100WBC PT 11.2 (10.0-13.1) SEC INR 1.0 (0.9-1.1) D-Dimer High Sensitivty < 150 NG/ML Sodium 141 (135-145) mmol/L Potassium 4.4 (3.3-5.1) mmol/L Chloride 109 H (96-108) mmol/L Carbon Dioxide 27 (22-29) mmol/L Anion Gap 9 L (12-20) BUN 13 (9-16) mg/dL Creatinine 0.68 (0.5-1.4) mg/dL Estim Creat Clear Calc 85.3 Estimated GFR > 60 Random Glucose 83 (60-115) mg/dL Calcium 8.6 (8.4-10.2) mg/dL Total Bilirubin 0.4 (0.0-1.0) mg/dL AST 15 (5-31) U/L ALT 13 (0-31) U/L Alkaline Phosphatase 59 (39-117) U/L Total Protein 6.0 L (6.5-8.0) g/dL Albumin 3.5 (3.5-5.0) g/dL <Jess Renschler, PA - Last Filed: 11/29/22 18:29> Independent Interpretation I performed an independent interpretation of an: Plain X-Ray <ASHUTOSH Brown - Last Filed: 11/29/22 18:29> Interpretation: normal inspection, no apprecaited fracture <ASHUTOSH Brown - Last Filed: 11/29/22 18:29> Radiology Impression Discussion of test interpretation with radiology: I have reviewed the radiologist's reading. <ASHUTOSH Brown - Last Filed: 11/29/22 18:29> External Record Review External record reviewed: Outpatient record, Prior outpatient labs and Prior outpatient radiology <ASHUTOSH Brown - Last Filed: 11/29/22 18:29> Prescription Management I considered prescription management with: Pain Medication <ASHUTOSH Brown - Last Filed: 11/29/22 18:29> NSAID <ASHUTOSH Brown - Last Filed: 11/29/22 18:29> Discharge Plan Discharge Clinical Impression: Hematoma <Mariposa Arce CNP - Last Filed: 11/29/22 11:51> Patient Disposition: Home, Self-Care <Mariposa Arec CNP - Last Filed: 11/29/22 11:51> Instructions: Hematoma (ED) <Mariposa Arce CNP - Last Filed: 11/29/22 11:51> Additional Instructions: your lab workup today was unremarkable Your x-ray was normal. Your pain and swelling or due to a hematoma which is a small blood collection under the skin. Recommend rest, ice, elevation and compression with provided Gera wrap. Take anti-inflammatories like the prescribed ibuprofen as directed. Follow-up with your doctor as needed <Mariposa Arce CNP - Last Filed: 11/29/22 11:51> Prescriptions: New ibuprofen 600 mg tablet 600 mg PO Q8H PRN (Reason: pain) Qty: 20 0RF No Action lansoprazole [Prevacid] 30 mg capsule,delayed release(DR/EC) 30 mg PO DAILY 30 Days Qty: 30 2RF albuterol sulfate [ProAir HFA] 90 mcg/actuation HFA aerosol inhaler 1 inh inhalation QID PRN (Reason: shortness of breath or wheezing) 30 Days Qty: 8.5 5RF acetaminophen 325 mg Tablet 650 mg PO Q6H PRN (Reason: Pain) ferrous sulfate 325 mg (65 mg iron) tablet,delayed release (DR/EC) 325 mg PO DAILY <Mariposa Arce CNP - Last Filed: 11/29/22 11:51> Referrals: Ronny Lan MD [Primary Care Provider] - <Mariposa Arce CNP - Last Filed: 11/29/22 11:51> Stand Alone Forms: Work/School Release <Mariposa Arce CNP - Last Filed: 11/29/22 11:51> Interventions: ED Discharge Assessment Last Done: 11/29/22 14:14 <Mariposa Arce CNP - Last Filed: 11/29/22 11:51> Discharge Date/Time: 11/29/22 14:15 <Mariposa Arce CNP - Last Filed: 11/29/22 11:51>
[2022-11-29 11:47] VITALS: BP 148/74; PULSE 61; RESP 16; TEMP 36.2; O2SAT 99; BMI 27.0
[2022-11-29 12:01] LABS: MANUAL DIFF FLAG NO
[2022-11-29 12:02] LABS: Basophils Percent Auto 0.3 % (0-2); Eosinophils Percent Auto 0.3 % (0-4); Hemoglobin 11.5 g/dl (12.0-16.0); Imm Gran Abs Auto 0.02 X10*3/uL (0.00-0.03); Imm Gran Pct Auto 0.3 % (0.0-0.4); Lymphocytes Absolute Auto 1.9 X10*3/uL (1.2-4.9); Lymphocytes Percent Auto 26.2 % (20-40); Mean Corpuscular HGB Conc 31.9 g/dl (31.0-35.0); Mean Corpuscular Hemoglobin 25.9 pg (27.0-33.0); Mean Corpuscular Volume 81.1 fL (80.0-98.0); Mean Platelet Volume 9.9 fL (9.4-12.3); Monocytes Absolute Auto 0.7 X10*3/uL (0.1-1.2); Neutrophils Absolute Auto 4.6 x10*3/uL (2.0-8.3); Neutrophils Percent Auto 63.9 % (45-73); Platelet Count 225 X10*3/uL (160-400); Red Blood Count 4.44 X10*6/uL (4.20-5.50); Red Cell Distribution Width 16.7 % (11.0-16.0); White Blood Count 7.2 X10*3/uL (4.8-10.8)
[2022-11-29 12:08] LABS: Prothrombin Time 11.2 SEC (10.0-13.1)
[2022-11-29 12:12] LABS: D Dimer High Sensitivity < 150 NG/ML
[2022-11-29 12:23] LABS: Alanine Aminotransferase 13 U/L (0-31); Albumin Level 3.5 g/dL (3.5-5.0); Alkaline Phosphatase 59 U/L (39-117); Anion Gap 9 (12-20); Aspartate Amino Transferase 15 U/L (5-31); Bilirubin Total 0.4 mg/dL (0.0-1.0); Blood Urea Nitrogen 13 mg/dL (9-16); Calcium 8.6 mg/dL (8.4-10.2); Carbon Dioxide 27 mmol/L (22-29); Chloride 109 mmol/L (96-108); Creatinine Clr Calc Pharmacy 85.3; Estimated Glomerular Filt Rate > 60; Glucose Random 83 mg/dL (60-115); Potassium 4.4 mmol/L (3.3-5.1); Sodium 141 mmol/L (135-145)
== END 2022-11-29 14:15 | disposition home or self-care (01) ==
PROVIDERS: Nurse Practitioner Family; Emergency Provider Emergency Medicine; PCP Internal Medicine
DX: S80.11XA Contusion of right lower leg, initial encounter (principal); X58.XXXA Exposure to other specified factors, initial encounter; Y93.9 Activity, unspecified; Y92.9 Unspecified place or not applicable; Y99.9 Unspecified external cause status
CPT/HCPCS: 36415; 73590; 80053; 85025; 85379; 85610; 99283

== ENCOUNTER 2022-12-04 14:57 | Outpatient (REF) | payer OTHER, SELFPAY ==
[2022-12-05 13:17] LABS: BV Int Neg Control Negative (Negative); BV Int Pos Control Positive (Positive)
[2022-12-08 01:44] LABS: HPV 16 RNA NOT DETECTED (NOT DETECTED); HPV mRNA E6/E7 rflx Detected (Not Detected)
== END 2022-12-04 14:58 | disposition home or self-care (01) ==
LOC: HO.LNP 14:57
PROVIDERS: PCP Internal Medicine; Visit Provider Obstetrics & Gynecology
DX: Z01.419 Encounter for gynecological examination (general) (routine) without abnormal findings (principal); N87.1 Moderate cervical dysplasia; Z11.3 Encounter for screening for infections with a predominantly sexual mode of transmission
CPT/HCPCS: 87480; 87510; 87624; 87625; 87660; 88142

== ENCOUNTER 2022-12-04 15:16 | Outpatient (REF) | payer OTHER, SELFPAY ==
[2022-12-04 17:47] LABS: Syphilis Screen Nonreactive (Nonreactive)
[2022-12-04 17:48] LABS: HBsAGNum1 0.26 S/CO (0.00-0.99); HIV AB/AG Nonreactive (Nonreactive); HIV Num 1 0.05 S/CO (0.00-0.99); Hepatitis B Surface Antigen Negative (Negative); ~HepC Num1 0.07 S/CO (0.00-0.79); ~Hepatitis C Antibody Nonreactive (Nonreactive)
[2022-12-05 02:04] LABS: CT PCR NOT DETECTED (Not Detect.); NG PCR NOT DETECTED (Not Detect.)
== END 2022-12-04 15:17 | disposition home or self-care (01) ==
LOC: HO.LAB 15:16
PROVIDERS: PCP Internal Medicine; Visit Provider Obstetrics & Gynecology
DX: Z01.419 Encounter for gynecological examination (general) (routine) without abnormal findings (principal); Z11.3 Encounter for screening for infections with a predominantly sexual mode of transmission
CPT/HCPCS: 0353U; 86780; 86803; 87340; 87389

== ENCOUNTER 2022-12-07 07:25 | Outpatient (REF) | payer OTHER, SELFPAY ==
--- NOTE | ~2022-12-07 | US_ITS ---
EXAMINATION: US ABDOMEN COMPLETE CLINICAL INFORMATION: Unspecified abdominal pain. COMPARISON: CT abdomen and pelvis 03/22/2022. Limited abdominal ultrasound 11/06/2021. TECHNIQUE: Real-time imaging of the abdominal viscera. Technically difficult study secondary to bowel gas and body habitus. FINDINGS: PANCREAS: The pancreas appears unremarkable, without masses or ductal dilatation, with the exception of the tail which is obscured by bowel gas. ABDOMINAL AORTA: The proximal, mid, and distal segments are normal in caliber. INFERIOR VENA CAVA: Visualized portions are normal. LIVER: The liver is normal in size. The liver contour is normal. Echogenicity is slightly heterogeneous but not increased. A correlate to the large area of abnormality seen in the right lobe of the liver is not seen on ultrasound and as suspected on the CT scan, probably represents some element of fatty infiltration. No focal hepatic lesion. There is no intrahepatic biliary duct dilatation seen. GALLBLADDER: Surgically absent. COMMON BILE DUCT: Normal in caliber measuring 1.0 cm in diameter. RIGHT KIDNEY: Normal. No hydronephrosis. No renal calculi or focal parenchymal lesions. The kidney measures 10.6 cm in maximum dimension. LEFT KIDNEY: Normal. No hydronephrosis. No renal calculi or focal parenchymal lesions. The kidney measures 10.9 cm in maximum dimension. SPLEEN: Normal. The spleen measures 8.7 cm in maximum dimension. FREE FLUID: None. US/US abdomen complete IMPRESSION: No significant abnormality is seen. A cause for the patient's abdominal pain has not been found.
[2022-12-07 08:17] LABS: Alanine Aminotransferase 14 U/L (0-31); Albumin Level 3.6 g/dL (3.5-5.0); Alkaline Phosphatase 62 U/L (39-117); Anion Gap 11 (12-20); Aspartate Amino Transferase 17 U/L (5-31); Bilirubin Total 0.7 mg/dL (0.0-1.0); Blood Urea Nitrogen 12 mg/dL (9-16); Calcium 8.2 mg/dL (8.4-10.2); Carbon Dioxide 26 mmol/L (22-29); Chloride 107 mmol/L (96-108); Cholesterol 176 mg/dL; Estimated Glomerular Filt Rate > 60; Glucose Fasting 94 mg/dL (60-99); HDL Cholesterol 72 mg/dL; LDL Cholesterol Calculated 94 mg/dl; Potassium 4.3 mmol/L (3.3-5.1); Sodium 140 mmol/L (135-145); Triglycerides 53 mg/dL
== END 2022-12-07 07:26 | disposition home or self-care (01) ==
LOC: HO.US 07:25
PROVIDERS: PCP Internal Medicine; Visit Provider Internal Medicine
DX: Z00.00 Encounter for general adult medical examination without abnormal findings (principal); R10.9 Unspecified abdominal pain; E78.00 Pure hypercholesterolemia, unspecified
CPT/HCPCS: 36415; 76700; 80053; 80061

== ENCOUNTER → 2022-12-19 14:52 | Outpatient (BNVA) | payer OTHER, SELFPAY | PROVIDERS: PCP Internal Medicine; Visit Provider Nurse Practitioner Family | DX: Z12.11 Encounter for screening for malignant neoplasm of colon (principal); K21.9 Gastro-esophageal reflux disease without esophagitis | CPT/HCPCS: 99202 ==

== ENCOUNTER 2022-12-26 10:47 | Outpatient (REF) | payer OTHER, SELFPAY ==
[2022-12-27 01:10] LABS: CT PCR NOT DETECTED (Not Detect.); NG PCR NOT DETECTED (Not Detect.)
== END 2022-12-26 10:48 | disposition home or self-care (01) ==
LOC: HO.LNP 10:47
PROVIDERS: PCP Internal Medicine; Visit Provider Obstetrics & Gynecology
DX: R10.2 Pelvic and perineal pain (principal); Z20.2 Contact with and (suspected) exposure to infections with a predominantly sexual mode of transmission
CPT/HCPCS: 0353U; 81025; 99212

== ENCOUNTER 2023-01-03 16:13 | Outpatient (REF) | payer OTHER, SELFPAY ==
--- NOTE | ~2023-01-03 | US_ITS ---
EXAMINATION: US PELVIS CLINICAL INFORMATION: Pelvic pain. LMP 12/14/2022. COMPARISON: CT abdomen/pelvis 03/22/2022. Pelvic ultrasound 12/06/2021. TECHNIQUE: Ultrasound of the pelvis is performed using both transabdominal and transvaginal transducers along with Doppler. Transvaginal imaging is performed due to inadequate visualization transabdominally. FINDINGS: The uterus is anteverted and anteflexed measuring 8.5 x 4.9 x 5.7 cm. There is a 1.3 x 1.5 x 0.9 cm intramural lesion in the mid body of the uterus, stable compared to 12/06/2021. There is an IUD within the endometrial canal. The right ovary measures 1.6 x 1.4 x 1.3 cm, 1.5 mL. The left ovary measures 1.9 x 1.7 x 2.2 cm, 3.7 mL. In the left ovary, there is a 1.5 x 0.9 x 1 cm cystic appearing observation with thickened hyperemic dumont and internal debris, possibly representing a corpus luteal cyst. There is preserved flow on color Doppler to both ovaries at the moment of this examination. No free fluid. US/US pelvic and transvaginal IMPRESSION: 1. There is a 1.5 cm cystic appearing observation in the left ovary with thickened hyperemic dumont and internal debris, possibly representing a corpus luteal cyst. Recommend a follow-up ultrasound in 6-12 weeks to ensure resolution. 2. There is a 1.5 cm intramural lesion in the mid body of the uterus, stable compared to 12/06/2021, likely representing a small fibroid. 3. There is an IUD in satisfactory positioning within the endometrial canal.
== END 2023-01-03 16:14 | disposition home or self-care (01) ==
LOC: HO.US 16:13
PROVIDERS: PCP Internal Medicine; Visit Provider Obstetrics & Gynecology
DX: R10.2 Pelvic and perineal pain (principal)
CPT/HCPCS: 76830; 76856

== ENCOUNTER 2023-01-15 15:26 | Outpatient (REF) | payer OTHER, SELFPAY | END 2023-01-15 15:27 | disposition home or self-care (01) | LOC: HO.LNP 15:26 | PROVIDERS: PCP Internal Medicine; Visit Provider Obstetrics & Gynecology | DX: R87.610 Atypical squamous cells of undetermined significance on cytologic smear of cervix (ASC-US) (principal); R87.810 Cervical high risk human papillomavirus (HPV) DNA test positive; D25.9 Leiomyoma of uterus, unspecified; N83.299 Other ovarian cyst, unspecified side; Z32.00 Encounter for pregnancy test, result unknown | CPT/HCPCS: 57454; 81025; 88305; 99212 ==

== ENCOUNTER 2023-01-24 07:27 | Day surgery (SDC) | payer OTHER, SELFPAY ==
--- NOTE | 2023-01-23 10:32 | HO.ANESPROP2 ---
HPI - Anesthesia Eval Consult details Narrative: 52yo F for Upper Endoscopy and Colonoscopy [facility] Active Problems Active Problems: All Active Problems (Updated 01/15/23 @ 16:01 by Clayton Barber MD) Complex ovarian cyst (Acute) Uterine myoma (Acute) ASCUS with positive high risk HPV cervical (Acute) Hematoma (Acute) Varicose vein of leg (Acute) Screen for STD (sexually transmitted disease) (Acute) Well woman exam (Acute) Colon cancer screening (Acute) Annual physical exam (Acute) Abdominal pain (Acute) Overweight (BMI 25.0-29.9) (Acute) GERD without esophagitis (Acute) Anemia (Acute) Impacted teeth (Acute) Preoperative examination (Acute) Pelvic pain (Acute) Varicose veins of right lower extremity with inflammation (Acute) Anemia (Acute) Iron deficiency anemia (Acute) Encounter for annual routine gynecological examination (Acute) Dysmenorrhea (Acute) Heavy menstrual bleeding (Acute) LGSIL on Pap smear of cervix (Acute) EDEN II (cervical intraepithelial neoplasia II) (Acute) Abdominal pain (Acute) H/O gastric bypass (Acute ~2018) Asthma (Acute) ZHOU positive (Acute) Past Medical History Medical History Abdominal pain ZHOU positive Asthma Gastritis GERD without esophagitis Left sided abdominal pain Overweight (BMI 25.0-29.9) Varicose veins of bilateral lower extremities with pain Family History Family History Father HTN (hypertension) Diabetes mellitus Mother HTN (hypertension) Diabetes mellitus Asthma Brother No problems noted. Brother No problems noted. Brother No problems noted. Brother No problems noted. Sister No problems noted. Daughter No problems noted. Son No problems noted. Son No problems noted. Paternal Aunt Breast cancer Family/Other Colon cancer Maternal Aunt Ovarian cancer Family history of problems with anesthesia: No Surgical History Surgical History H/O gastric bypass (~2018) H/O tubal ligation Hx of cholecystectomy (~2014) Hx of laparoscopy Status post laser ablation of incompetent vein History of Problems with Anesthesia: No Social History Social History Household Members: Spouse Housing: House Do you presently have visiting nurse or other home services: No Alcohol intake: never Patient Tobacco Use Status: Never used Tobacco Second Hand Smoke Exposure: No service: No Current occupational status: employed Cognitive needs: No Hearing needs: No Vision needs: No Meds Allergies Allergy/AdvReac Type Severity Reaction Status Date / Time No Known Allergies Allergy Verified 01/24/23 08:25 [No Known Allergies*] Home Medications Medication Instructions Recorded Confirmed Last Taken Type acetaminophen 325 mg tablet 650 mg PO Q6H PRN Pain 03/03/22 01/24/23 Unknown History ferrous sulfate 325 mg (65 mg 325 mg PO DAILY 09/07/22 01/24/23 01/22/23 History iron) tablet,delayed release Exam Exam Date and Time: January 23, 2023 1032 Pertinent Lab Results Pertinent Lab Results: Laboratory Tests 11/29/22 12/07/22 11:56 07:31 WBC 7.2 Hgb 11.5 L Hct 36.0 L Plt Count 225 Sodium 140 Potassium 4.3 Chloride 107 Carbon Dioxide 26 BUN 12 Creatinine 0.59 Assessment and Plan Assessment Anesthesia Assessment: Chart Reviewed Final Anesthetic Review Family History of Problems with Anesthesia: No History of Problems with Anesthesia: No
[2023-01-24 08:08] VITALS: BMI 27.3
[2023-01-24] MEDS: Lactated Ringers 1,000 ML 100 ML IVCONT (08:08)
[2023-01-24 08:21] VITALS: BP 146/65; PULSE 46; RESP 18; TEMP 36.8; O2SAT 100
--- NOTE | 2023-01-24 08:24 | PC.NURSE ---
Dr. Ruiz updated of patient pulse. Patient states this is her baseline. Okay to proceed, BP WNL.
--- NOTE | 2023-01-24 08:46 | HO.ANESPROP2 ---
HPI - Anesthesia Eval Consult details Narrative: screening GERD PMFSH Active Problems Active Problems: All Active Problems (Updated 01/15/23 @ 16:01 by Clayton Barber MD) Complex ovarian cyst (Acute) Uterine myoma (Acute) ASCUS with positive high risk HPV cervical (Acute) Hematoma (Acute) Varicose vein of leg (Acute) Screen for STD (sexually transmitted disease) (Acute) Well woman exam (Acute) Colon cancer screening (Acute) Annual physical exam (Acute) Abdominal pain (Acute) Overweight (BMI 25.0-29.9) (Acute) GERD without esophagitis (Acute) Anemia (Acute) Impacted teeth (Acute) Preoperative examination (Acute) Pelvic pain (Acute) Varicose veins of right lower extremity with inflammation (Acute) Anemia (Acute) Iron deficiency anemia (Acute) Encounter for annual routine gynecological examination (Acute) Dysmenorrhea (Acute) Heavy menstrual bleeding (Acute) LGSIL on Pap smear of cervix (Acute) EDEN II (cervical intraepithelial neoplasia II) (Acute) Abdominal pain (Acute) H/O gastric bypass (Acute ~2018) Asthma (Acute) ZHOU positive (Acute) Past Medical History Medical History Abdominal pain ZHOU positive Asthma Gastritis GERD without esophagitis Left sided abdominal pain Overweight (BMI 25.0-29.9) Varicose veins of bilateral lower extremities with pain Family History Family History Father HTN (hypertension) Diabetes mellitus Mother HTN (hypertension) Diabetes mellitus Asthma Brother No problems noted. Brother No problems noted. Brother No problems noted. Brother No problems noted. Sister No problems noted. Daughter No problems noted. Son No problems noted. Son No problems noted. Paternal Aunt Breast cancer Family/Other Colon cancer Maternal Aunt Ovarian cancer Family history of problems with anesthesia: No Surgical History Surgical History H/O gastric bypass (~2017) H/O tubal ligation Hx of cholecystectomy (~2014) Hx of laparoscopy Status post laser ablation of incompetent vein History of Problems with Anesthesia: No Social History Social History Household Members: Spouse Housing: House Do you presently have visiting nurse or other home services: No Alcohol intake: never Patient Tobacco Use Status: Never used Tobacco Second Hand Smoke Exposure: No Are you DNR?: No Advance Directives: No Advance Directives Information Provided: Yes Nutrition Risks: No Nutritional Risk service: No Current occupational status: employed Cognitive needs: No Hearing needs: No Vision needs: No Meds Allergies Allergy/AdvReac Type Severity Reaction Status Date / Time No Known Allergies Allergy Verified 01/24/23 08:25 [No Known Allergies*] Active Medications: Current Medications Albuterol Sulfate (Albuterol Sulfate (0.083%) 2.5 Mg/3 Ml Vial.Neb) 2.5 mg INHALE ONCE PRN PRN Reason: Shortness of Breath/Wheezing Lactated Ringer's (Lr) 1,000 mls @ 100 mls/hr IVCONT .Q10H JIMENEZ Last Admin: 01/24/23 08:08 Dose: 100 mls/hr Home Medications Medication Instructions Recorded Confirmed Last Taken Type acetaminophen 325 mg tablet 650 mg PO Q6H PRN Pain 03/03/22 01/24/23 Unknown History ferrous sulfate 325 mg (65 mg 325 mg PO DAILY 09/07/22 01/24/23 01/22/23 History iron) tablet,delayed release Exam Exam Date and Time: January 24, 2023 0846 Height,Weight and Vital Signs: Height 5 ft 1 in Weight 65.771 kg Last Vital Signs Temp 98.2 F 01/24/23 08:21 Pulse 46 L 01/24/23 08:21 Resp 18 01/24/23 08:21 BP 146/65 H 01/24/23 08:21 Pulse Ox 100 01/24/23 08:21 O2 Del Method Room Air 01/24/23 08:21 Airway Mallampati Class: I TM Dist: >3cm Neck ROM: Full Heart: rr Lungs: cta Assessment and Plan Assessment Anesthesia Assessment: Anesthesia Plan Discussed Final Anesthetic Review Family History of Problems with Anesthesia: No History of Problems with Anesthesia: No ASA Class: II Final Preanesthetic Review: No Changes in Pt Med Stat, Meds/Allgs Chart Reviewed, Consent Obtained/Reviewed and Anes Risks/Benef Reviewed Patient Risk: Low Procedure Risk: Low Anesthetic Plan Anesthetic Plan: MAC: Disposition: Standard PACU
--- NOTE | 2023-01-24 09:38 | P.HPSUR_ITS ---
Pre-Procedural Eval Section A Date of Service: 01/24/23 Section B Chief Complaint: Screening,GERD Relevant Family History (Specify if Yes): No Relevant Social History: None Present Medications: see Short Stay Collaborative assessment Medical History: Significant History (Abdominal pain ZHOU positive Asthma Gastritis GERD without esophagitis Left sided abdominal pain Overweight (BMI 25.0-29.9) Varicose veins of bilateral lower extremities with pain) History of Previous Operations: Relevant previous surgery/procedure and date(s) (H/O gastric bypass (~2017) H/O tubal ligation Hx of cholecystectomy (~2014) Hx of laparoscopy Status post laser ablation of incompetent vein) Allergies: Allergies Allergy/AdvReac Type Severity Reaction Status Date / Time No Known Allergies Allergy Verified 01/24/23 08:25 [No Known Allergies*] Review of Systems Sugical H&P ROS: Negative: Constitution, Cardiovascular, Respiratory, Neurological, Psychiatric, Hem-Onc, Allergic/Immunologic, Gastrointestinal, Genitourinary, Musculoskeletal, Integumentary, Endocrine and E yes/Ears/Nose/Throat Exam Surgical H&P Exam: Normal: HEENT, Normal: Heart, Normal: Lungs, Normal: Extremities, Normal: Abdomen, Normal: Skin and Normal: Neurological Plan Diagnosis/Plan: Unchanged I have reviewed the history and physical and performed a pertinent physical examination on my patient. No changes have occurred unless specified. Time Spent With Patient Time: Total time managing care of this patient today ____ minutes.
--- NOTE | 2023-01-24 10:20 | W.PM.OPN ---
Operative Note Operative Note Date of Service: 01/24/23 Narrative: Operative Information Procedure Description: EGD, Colonoscopy Indication: GERD, screening Anesthesia: MAC FLEXIBLE TRANSORAL UPPER GASTROINTESTINAL ENDOSCOPY AND COLONOSCOPY PROCEDURE NOTE UPPER ENDOSCOPY Consent: Indications for the procedure and potential complications of bleeding, perforation, reaction to medications and missed diagnosis were discussed with the patient and informed consent was obtained. Instrument: Olympus GIF H 190 J mid size upper endoscope Monitoring: Vital signs and clinical assessment, continuous EKG monitoring, Pulse oximetry, Carbon Dioxide monitoring and blood pressure monitoring were done throughout the procedure. Procedure: The patient was placed in the left lateral decubitis position and pre-procedure medications were administered and a bite block was placed. The endoscope was inserted into the mouth and advanced under direct vision to the third part of duodenum. A careful inspection was made as the upper endoscope was withdrawn including a retroflexed examination of the proximal stomach; Findings and interventions are described below. Findings: Larynx:normal Esophagus: GE junction at 35? cm, diaphragm hiatus at 35 cm, no varices or esophagitis, slightly lax LES. bx taken from distal esophagus to check for reflux on path Stomach pouch: Patchy gastric erythema around the anastomosis. Biopsies were obtained. Grade 2 flap valve on retroflexed examination of the cardia. There was a clip from her previous procedure still in place and it was attached to a staple so this was removed with forceps and then retrieved by a net jejunum: Normal, COLONOSCOPY Instrument: Olympus variable stiffness pediatric scope 190L Colonoscopy Monitoring: Vital signs and clinical assessment, continuous EKG monitoring, Pulse oximetry, Carbon Dioxide monitoring and blood pressure monitoring were done throughout the procedure. Colon withdrawal time was 9 minutes. Procedure: The patient was placed in the left lateral decubitis position and pre-procedure medications were administered. After a digital rectal examination of the ano-rectum, the video colonoscope was inserted into the rectum and advanced through the colon to the cecum/TI. The colonoscope was slowly withdrawn in a retrograde panoramic fashion and the colon mucosa was carefully examined including a retroflexed view of the rectum. Findings and interventions are described below. Procedure Difficulty: easy Findings: Terminal Ileum-normal Cecum:normal Ascending Colon: normal Transverse Colon -normal Descending Colon:normal Sigmoid Colon: normal Rectum: Retroflexion with small internal hemorrhoids, grade I Anorectum - normal Colon preparation: [place] Bowel Preparation Scale Right colon; 2 Transverse colon: 3 Left colon; 3 (0 = Unprepared colon segment with mucosa not seen due to solid stool that cannot be cleared. 1 = Portion of mucosa of the colon segment seen, but other areas of the colon segment not well seen due to staining, residual stool and/or opaque liquid. 2 = Minor amount of residual staining, small fragments of stool and/or opaque liquid, but mucosa of colon segment seen well. 3 = Entire mucosa of colon segment seen well with no residual staining, small fragments of stool or opaque liquid) Impression and Post Procedure Diagnosis: Endoscopy Findings: retained clip and staple Colonoscopy Findings: internal hemorrhoids Plan: Await Pathology results Repeat Colonoscopy in 10 years or earlier if clinically indicated High fiber diet leaflet avoid straining at stool, epsom salts and sitz bath, anusol supps or cream Above findings were reviewed with the patient and relevant handouts were provided if indicated.
[2023-01-24 10:42] VITALS: BP 86/53; PULSE 67; RESP 18; TEMP 36.2; O2SAT 96
[2023-01-24 10:57] VITALS: BP 126/75; PULSE 45; RESP 18; TEMP 36.3; O2SAT 100
== END 2023-01-24 11:44 | disposition home or self-care (01) ==
PROVIDERS: PCP Internal Medicine; Visit Provider Internal Medicine Gastroenterology
PROC: (CPT 43247; principal; 2023-01-24 09:40)
DX: Z12.11 Encounter for screening for malignant neoplasm of colon (principal); K64.0 First degree hemorrhoids; K21.9 Gastro-esophageal reflux disease without esophagitis; M79.5 Residual foreign body in soft tissue; K44.9 Diaphragmatic hernia without obstruction or gangrene; Z90.49 Acquired absence of other specified parts of digestive tract; Z98.84 Bariatric surgery status; Z98.0 Intestinal bypass and anastomosis status; Z79.899 Other long term (current) drug therapy; Z79.1 Long term (current) use of non-steroidal anti-inflammatories (NSAID)
CPT/HCPCS: 43247; 43239; 88305; 88342; J3010

== ENCOUNTER → 2023-02-04 13:52 | Outpatient (BNVA) | payer OTHER, SELFPAY | PROVIDERS: PCP Internal Medicine; Visit Provider Nurse Practitioner Family | DX: R10.13 Epigastric pain (principal); K21.9 Gastro-esophageal reflux disease without esophagitis; Z90.49 Acquired absence of other specified parts of digestive tract; Z98.84 Bariatric surgery status; K58.9 Irritable bowel syndrome, unspecified | CPT/HCPCS: 99212 ==

== ENCOUNTER 2023-02-11 07:44 | Outpatient (REF) | payer OTHER, SELFPAY ==
--- NOTE | ~2023-02-11 | CT_ITS ---
EXAMINATION: CT ABDOMEN AND PELVIS WITH CONTRAST CLINICAL INFORMATION: Unspecified abdominal pain. COMPARISON: CT abdomen and pelvis 03/22/2022. TECHNIQUE: Multidetector volumetric images were obtained from the superior aspect of the liver through the pubic symphysis following administration 85 mL of Omnipaque 350 intravenous contrast. Sagittal and coronal reformatted images were obtained on the technologist's workstation. Oral contrast: No This CT examination was performed using dose optimization techniques as appropriate, variously including the following: *Automated exposure control *Adjustment of mA and/or kV according to patient size (this includes techniques or standardized protocols for targeted exams where dose is matched to indication/reason for exam; i.e. extremities or head) *Use of iterative reconstruction technique DLP: 333 mGy-cm FINDINGS: LUNG BASES: The visualized lung bases are unremarkable. LIVER, GALLBLADDER, AND BILIARY TREE: The liver is slightly enlarged in size measuring 20 cm in length. It is normal shape and mildly heterogeneous likely from focal fatty infiltration more so in the posterior segment of right hepatic lobe. No focal hepatic lesion or biliary ductal dilatation is present. Gallbladder has been surgically removed PANCREAS: Unremarkable. SPLEEN: Unremarkable. ADRENAL GLANDS: Unremarkable. KIDNEYS AND URETERS: The kidneys are normal in size, shape, and attenuation. No hydronephrosis, hydroureter, or calculi seen. No perinephric stranding. There is a 3 mm hypodensity upper pole cortex left kidney, probable cyst. BLADDER: Unremarkable. GASTROINTESTINAL TRACT: There are gastric bypass surgical changes, stable compared to previous study. ABDOMINAL WALL: No significant hernia is appreciated. LYMPH NODES: Normal. VASCULAR: Unremarkable. PELVIC VISCERA: Anteverted uterus with IUD well located within the endometrial canal. No adnexal mass or free fluid seen. OSSEOUS STRUCTURES: No aggressive lytic or sclerotic process. CT/CT abdomen pelvis w IV con IMPRESSION: 1. No acute intra-abdominal process seen. 2. Mild hepatomegaly with focal fatty infiltration in the posterior segment of right hepatic lobe. It is unchanged from previous study 03/22/2022. 3. Gastric bypass surgical changes are stable. Fleischner guidelines were followed.
[2023-02-11 08:25] LABS: Blood Urea Nitrogen 9 mg/dL (9-16); Estimated Glomerular Filt Rate > 60; Lipase 96 U/L (8-78)
[2023-02-11] MEDS: iohexoL 350 MG/ML 100 ML INFUS..BTL 85 ML IV (11:18)
[2023-02-11] MEDS: Barium Sulfate Oral (Mocha) 450 ML ORAL.SUSP 900 ML PO (11:19)
[2023-02-13 13:19] LABS: CA-125 6 U/mL (<35)
== END 2023-02-11 07:45 | disposition home or self-care (01) ==
LOC: HO.CT 07:44
PROVIDERS: Obstetrics & Gynecology; PCP Internal Medicine; Visit Provider Nurse Practitioner Family
DX: R10.11 Right upper quadrant pain (principal); N83.299 Other ovarian cyst, unspecified side
CPT/HCPCS: 36415; 74177; 82565; 83690; 84520; 86304; Q9967

== ENCOUNTER → 2023-02-12 14:52 | Outpatient (BNVA) | payer OTHER, SELFPAY | PROVIDERS: PCP Internal Medicine; Visit Provider Obstetrics & Gynecology | DX: R87.610 Atypical squamous cells of undetermined significance on cytologic smear of cervix (ASC-US) (principal); R87.810 Cervical high risk human papillomavirus (HPV) DNA test positive | CPT/HCPCS: 99212 ==

== ENCOUNTER 2023-03-05 11:42 | Outpatient (REF) | payer OTHER, SELFPAY ==
[2023-03-15 22:09] LABS: Pancreatic Elastase-1 143 mcg/g
== END 2023-03-05 11:43 | disposition home or self-care (01) ==
LOC: HO.LNP 11:42
PROVIDERS: Visit Provider Nurse Practitioner Family
DX: R10.9 Unspecified abdominal pain (principal)
CPT/HCPCS: 82656

== ENCOUNTER 2023-04-17 14:08 | Outpatient (REF) | payer OTHER, SELFPAY ==
--- NOTE | ~2023-04-17 | US_ITS ---
EXAMINATION: US PELVIS COMPLETE CLINICAL INFORMATION: Ovarian cyst COMPARISON: CT abdomen pelvis 02/11/2023, ultrasound 01/03/2023 TECHNIQUE: Transabdominal and transvaginal imaging was performed. FINDINGS: The uterus is of normal size and echogenicity measuring 8.0 x 4.3 x 5.2 cm. A regular homogeneous endometrium is identified measuring 0.6 cm. Nabothian cysts in the cervix. Intrauterine device in place. 1.3 cm subserosal myoma in the anterior lower uterine segment previously 1.5 cm. Both ovaries are of normal size and echogenicity. The right measures 3.0 x 1.5 x 1.6 cm for a volume of 3.8 mL. The left measures 2.5 x 1.2 x 1.3 cm for a volume of 2.0 mL. The right ovary is remarkable for a 1.7 cm hemorrhagic ovarian cyst. There is no pelvic free fluid. US/US pelvic and transvaginal IMPRESSION: 1. A 1.7 cm hemorrhagic right ovarian cyst. If patient is premenopausal, no follow-up imaging recommended. If patient is early postmenopausal recommend follow-up ultrasound in 6-12 weeks and if not resolved annual follow-up ultrasound. 2. Intrauterine device in place. 3. A 1.3 cm subserosal myoma in the anterior lower uterine segment.
== END 2023-04-17 14:09 | disposition home or self-care (01) ==
LOC: HO.US 14:08
PROVIDERS: PCP Internal Medicine; Visit Provider Obstetrics & Gynecology
DX: N83.299 Other ovarian cyst, unspecified side (principal)
CPT/HCPCS: 76830; 76856

== ENCOUNTER 2023-04-18 11:47 | Outpatient (AMB) | payer OTHER, SELFPAY ==
--- NOTE | 2023-04-18 14:07 | MHC.OFFWIV ---
Intake Vital Signs 04/18/23 14:09 BP 112/76 Blood Pressure Location Lt brachial Position Sitting Pulse 54 Pulse Source Pulse Oximeter Temp 98.2 F Temp Source Oral Pulse Oximetry (%) 98 Oxygen Delivery Method Room Air Intake Visit Reasons: EP bump on neck,painful (lobby) Intake Note: Patient here for bump on right side of neck for about 2 weeks which started off real small and then saturday it got bigger and was painful. Patient Tobacco Use Status: Never used Tobacco Allergies No Known Allergies [No Known Allergies*] Allergy (Verified 04/18/23 14:09) Do you need a note to return to daycare/school/sports/work: No HPI HPI Comments History of Present Illness Details 1421 This is a 52-year-old female history of pancreatic insufficiency, ovarian cyst, anemia heavy menstrual bleeding, seen to intraepithelial neoplasia, gastric bypass in 2018, ZHOU positive presenting to the clinic for evaluation of a lump that appeared around her right ear /neck the past 2 weeks, it was fluctuating in size initially painful, uncomfortable in growing, since then the lump has gone away, and now she just has a sore sensation under her lower ear and some discomfort. at times her neck felt sore. She wanted to get evaluated to see what this could potentially be. Denies fevers, chills, chest pain, shortness of breath, nausea, vomiting, abdominal pain, headache, vision changes, dizziness or weakness. Reports increasing life stressors. Physical examination benign. This is likely lymphadenopathy ( reactive vs stress) versus cyst. Unable to palpate lymphadenopathy at this time. Low suspicion for malignancy however still on the differential advised her that if this happens again she should seek medical treatment immediately, follow-up with PCP and may require biopsy of lymph node. No signs of abscess or cellulitis at this time or necrotizing infection. No signs of airway compromise, meningitis encephalitis supportive measures encouraged, warm compresses to the area, ibuprofen and Tylenol. Educated patient on diagnosis and treatment plan, answered all question, patient verbalizes understanding. At this time patient will be discharged home, advised to return with new or worsening symptoms. Educated on worrisome signs and symptoms and when to return. At this time I feel comfortable discharge home. [facility] Medical History (Updated 03/20/23 @ 14:42 by SABIHA Muir-) Abdominal pain ZHOU positive Asthma Gastritis GERD without esophagitis Left sided abdominal pain Overweight (BMI 25.0-29.9) Varicose veins of bilateral lower extremities with pain Surgical History H/O gastric bypass (~2017) H/O tubal ligation History of esophagogastroduodenoscopy (EGD) Hx of cholecystectomy (~2014) Hx of colonoscopy Hx of laparoscopy Status post laser ablation of incompetent vein Family History Father HTN (hypertension) Diabetes mellitus Mother HTN (hypertension) Diabetes mellitus Asthma Brother No problems noted. Brother No problems noted. Brother No problems noted. Brother No problems noted. Sister No problems noted. Daughter No problems noted. Son No problems noted. Son No problems noted. Paternal Aunt Breast cancer Family/Other Colon cancer Maternal Aunt Ovarian cancer Social History Household Members: Spouse Housing: House Do you presently have visiting nurse or other home services: No Alcohol intake: never Patient Tobacco Use Status: Never used Tobacco Second Hand Smoke Exposure: No service: No Current occupational status: employed Cognitive needs: No Hearing needs: No Vision needs: No Female Reproductive History Menstrual Age of Menarche: 14 Review of Systems Const Details: Constitutional : No Weight loss, No Fever, No Chills, No Fatigue, No Malaise ENT/Mouth : No sore throat, No Rhinorrhea Eyes: No Eye Pain, No Swelling, No Redness Cardiovascular : No Chest Pain, No SOB, No Dyspnea on Exertion, No Orthopnea, No Edema, No Palpitations Respiratory : No Cough, No Sputum, No Wheezing Gastrointestinal : No Nausea, No Vomiting, No Diarrhea, No Constipation, No abdominal Pain, No Hematochezia, No Melena Genitourinary : No Dysuria, No Urinary Frequency, No Hematuria, Musculoskeletal : No joint pain, No Myalgias, No Joint Swelling Skin : No Skin Lesions, No rash Neuro : No Weakness, No Numbness, No Dizziness, No Headache Psych : No Anxiety/Panic, No Depression All other systems reviewed and are negative All systems reviewed & are unremarkable except as noted in HPI and below Physical Exam Vital Signs: Last Vital Signs Temp 98.2 F 04/18/23 14:09 Pulse 54 04/18/23 14:09 BP 112/76 04/18/23 14:09 Pulse Ox 98 04/18/23 14:09 Oxygen Delivery Method Room Air 04/18/23 14:09 vss Appearance: Alert.? Oriented X3.? No acute distress.? Head: Normocephalic, atraumatic, no step-offs or deformities Eyes: Pupils equal, round and reactive to light.? ENT: Pharynx normal.? Neck: Normal inspection.? Neck supple.? No cervical, pre or postauricular adenopathy or occipital adenopathy on exam CVS: Normal heart rate and rhythm.? Pulses normal.? Respiratory: No respiratory distress.? Breath sounds normal.? Abdomen: Soft and nontender.? Skin: Skin warm and dry.? Normal skin color.? Normal skin turgor.? Extremities: No lower extremity edema.? No calf ttp. 5/5 strength to bilateral upper and lower extremities Neuro: Oriented X 3.? No motor deficit.? No sensory deficit. CN 2-12 intact Assessment & Plan Assessment & Plan (1) Neck pain: Code(s): M54.2 - Cervicalgia (2) Normal physical exam: Code(s): Z00.00 - Encounter for general adult medical examination without abnormal findings Plan Take your medications as prescribed. If you were prescribed antibiotics today, it is important that you take your medication to their entirety, do not skip any doses, do not finish them early. Follow-up with your primary care provider this week. Return to the emergency department with new or worsening symptoms. Such as fevers, chills, chest pain, shortness of breath, nausea, vomiting, dizziness, headache, vision changes, lethargy In case of emergency call 911 Coding Level of Care Code Est Pt Level 3 (18661) Diagnoses Neck pain M54.2 Normal physical exam Z00.00
[2023-04-18 14:09] VITALS: BP 112/76; PULSE 54; TEMP 36.8; O2SAT 98
== END 2023-04-18 16:36 | disposition home or self-care (01) ==
PROVIDERS: PCP Internal Medicine; Visit Provider Physician Assistant
DX: M54.2 Cervicalgia (principal); Z00.00 Encounter for general adult medical examination without abnormal findings
CPT/HCPCS: 99213

== ENCOUNTER 2023-04-29 15:07 | Outpatient (AMB) | payer OTHER, SELFPAY ==
[2023-04-29 15:17] VITALS: BP 134/82; PULSE 66; BMI 27.2
--- NOTE | 2023-04-29 15:17 | MHC.OFFVIS ---
Intake Vital Signs 04/29/23 15:17 Height 5 ft 1 in Weight 144 lb 2.917 oz BMI 27.2 BP 134/82 Blood Pressure Location Lt brachial Position Sitting Pulse 66 Intake Visit Reasons: 2 month follow up Intake Note: Linnette presents in office as a est.patient for a f/u PT CC: pt reports having no concerns pt denies any other GI Issues Manager Concrete Required: No Accompanied by: Self / Same As Patient Allergies No Known Allergies [No Known Allergies*] Allergy (Verified 04/29/23 15:17) HPI 2 month follow up HPI Details LAST VISIT: Abdominal pain Epigastric abdominal pain most likely related to patient's erosion is in inflammation from gastric clip and staple from bariatric procedure. Patient also reports postprandial abdominal bloating, will check lipase to rule out pancreatitis. Will check for pancreatic insufficiency. Ordered CT scan of the abdomen with IV and oral contrast to rule out obstruction, intussusception, diverticulitis, colitis. Patient had no mention of diverticulosis or any changes on colonoscopy so unlikely. Patient states that she is moving her bowels and she states that she feels like she empties them completely. Will order MiraLax and see if it will make any difference. Discussed with patient also diet changes. GERD without esophagitis As mentioned above patient was found to have chronic active inflammation and surface erosion in the pouch of the stomach most likely from staple and the clip patient was encouraged not to take NSAIDs. I will send a script for sucralfate and patient can take it at bedtime. Discussed with patient to avoid dietary triggers in late night snacking. Staying upright for minimum 3 hours after meals discussed with patient IBS (irritable bowel syndrome) Patient reports occasional postprandial abdominal bloating. Discussed with patient will FODMAP diet. List of food recommended as well as list of food to avoid given to patient. Will check lipase, rule out pancreatic insufficiency, order CT scan. I will see patient in 2 months, sooner on as needed basis. Patient is agreeable to this plan and verbalizes understanding of instructions. She was given the opportunity to ask questions and all questions answered. ? Thank you for allowing me to participate in her care Plan Orders Orders Lipase Today R10.9 Pancreatic Elastase-1 Today R10.9 Blood Urea Nitrogen Today R10.[address] abdomen pelvis w IV con Today R10.9 Medications New polyethylene glycol 3350 (Miralax) 17 grams PO DAILY 510 grams 2RF sucralfate 1 g PO BEDTIME 30 tabs 4RF R19.7 TODAY'S VISIT Patient is here today for follow-up and discuss CT scan results. Patient reports that since last him I have seen her she has been feeling well. Diagnosed with pancreatic insufficiency and is taking enzymes and tolerating them well. Patient symptoms have improved. She is using bathroom mostly every day, however if he does not have a bowel movement for 2 days she uses MiraLax with good results. Patient is taking Nexium every morning and reports that her symptoms of acid reflux are suppressed. Patient denies any dyspepsia, dysphagia or odynophagia. [facility] Medical History Abdominal pain ZHOU positive Asthma Gastritis GERD without esophagitis Left sided abdominal pain Overweight (BMI 25.0-29.9) Varicose veins of bilateral lower extremities with pain Surgical History H/O gastric bypass (~2017) H/O tubal ligation History of esophagogastroduodenoscopy (EGD) Hx of cholecystectomy (~2014) Hx of colonoscopy Hx of laparoscopy Status post laser ablation of incompetent vein Family History Father HTN (hypertension) Diabetes mellitus Mother HTN (hypertension) Diabetes mellitus Asthma Brother No problems noted. Brother No problems noted. Brother No problems noted. Brother No problems noted. Sister No problems noted. Daughter No problems noted. Son No problems noted. Son No problems noted. Paternal Aunt Breast cancer Family/Other Colon cancer Maternal Aunt Ovarian cancer Social History Household Members: Spouse Housing: House Do you presently have visiting nurse or other home services: No Alcohol intake: never Patient Tobacco Use Status: Never used Tobacco Second Hand Smoke Exposure: No service: No Current occupational status: employed Cognitive needs: No Hearing needs: No Vision needs: No Female Reproductive History Menstrual Age of Menarche: 14 Review of Systems Const Denies weight gain and Denies weight loss ENT Reports no additional complaints, Denies dysphagia and Denies odynophagia Card Reports no additional complaints Resp Reports no additional complaints GI Denies abdominal pain, Denies belching, Denies melena, Denies bloating, Denies change in bowel habits, Reports constipation (Occasional), Denies dysphagia, Denies excessive flatus, Denies dyspepsia, Denies heartburn, Denies diarrhea, Denies loose stools, Denies nausea, Denies odynophagia and Denies vomiting Reports no additional complaints Musc Reports no additional complaints Neuro Reports no additional complaints Psych Reports no additional complaints Endo Reports no additional complaints Physical Exam Vital Signs: Last Vital Signs Pulse 66 04/29/23 15:17 BP 134/82 04/29/23 15:17 BMI result Body Mass Index 27.2 Const General: healthy appearing, no acute distress and well developed Nutritional Appearance: well nourished Orientation/consciousness: patient oriented x3 HEENT Head: Yes normal to inspection, Yes normocephalic and Yes atraumatic Face and sinus: Yes normal facial exam Mouth: Normal oral and palatal mucosa present Throat: Yes posterior oropharynx normal, Yes tonsils normal and Yes uvula midline Eyes General: appearance normal, both eyes and all related structures Neck Neck: Yes normal visual inspection, Yes full ROM and Yes trachea midline Thyroid: Thyroid normal Resp Effort & Inspection: normal respiratory effort, able to speak in complete sentences, no tracheal deviation and symmetric chest movement Auscultation: clear to auscultation bilaterally Cardio Rate: regular rate Heart sounds: S1 normal heart sound present and S2 normal heart sound present GI Inspection: Yes normal to inspection and No distended Palpation (GI): Soft to palpation, not firm, nontender and No hepatosplenomegaly present Auscultation: normal bowel sounds General: Yes no CVA tenderness Back/Spine/Pelvis Back: no CVA tenderness Skin General skin exam: elasticity normal, turgor normal and dry skin Neuro General: patient oriented x3 Psych Appearance: grossly normal Mental Status: mental status grossly normal Speech and movement: Normal speech and movement present Affect: normal affect Assessment & Plan Assessment & Plan (1) Exocrine pancreatic insufficiency: Code(s): K86.81 - Exocrine pancreatic insufficiency Plan: Continue current dose of Creon. (2) GERD without esophagitis: Code(s): K21.9 - Gastro-esophageal reflux disease without esophagitis Plan: Continue taking Nexium every morning. Patient will continue avoid dietary triggers and late night snacking. (3) IBS (irritable bowel syndrome): Code(s): K58.9 - Irritable bowel syndrome without diarrhea Qualifiers: Irritable bowel syndrome type: with constipation Qualified Code(s): K58.1 - Irritable bowel syndrome with constipation Plan: Occasional cramping when constipated. Continues and MiraLax. Patient was encouraged to use it every day, however patient states that she would like to use it when she needs it. I will see patient in 6 months, sooner on as needed basis. Patient is agreeable to this plan and verbalizes understanding of instructions. She was given the opportunity to ask questions and all questions answered. Thank you for allowing me to participate in her care Coding Level of Care Code Est Pt Level 3 (02489) Diagnoses Exocrine pancreatic insufficiency K86.81 GERD without esophagitis K21.9 IBS (irritable bowel syndrome) K58.1 Irritable bowel syndrome type: with constipation Time Spent (min) 30 Comment 20 minutes spent with patient and additional 10 minutes spent reviewing her records
== END 2023-04-29 16:12 | disposition home or self-care (01) ==
PROVIDERS: Visit Provider Nurse Practitioner Family
DX: K86.81 Exocrine pancreatic insufficiency (principal); K21.9 Gastro-esophageal reflux disease without esophagitis; K58.1 Irritable bowel syndrome with constipation
CPT/HCPCS: 99213

== ENCOUNTER → 2023-04-29 15:07 | Outpatient (BNVA) | payer OTHER, SELFPAY | PROVIDERS: Visit Provider Nurse Practitioner Family | DX: K86.81 Exocrine pancreatic insufficiency (principal); K21.9 Gastro-esophageal reflux disease without esophagitis; K58.1 Irritable bowel syndrome with constipation | CPT/HCPCS: 99212 ==

== ENCOUNTER 2023-05-01 15:06 | Outpatient (AMB) | payer OTHER, SELFPAY ==
[2023-05-01 15:09] VITALS: BP 126/82; BMI 27.1
--- NOTE | 2023-05-01 15:09 | A.OFFVIS_ITS ---
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 Repeat follow-up pelvic Ultrasound done recently showed the followin.? A 1.7 cm hemorrhagic right ovarian cyst. If patient is premenopausal, no follow-up imaging recommended. If patient is early postmenopausal recommend follow-up ultrasound in 6-12 weeks and if not resolved annual follow-up ultrasound. 2.? Intrauterine device in place. 3.? A 1.3 cm subserosal myoma in the anterior lower uterine segment. 02/11/2023 CA 125 was within [facility] Medical History Abdominal pain ZHOU positive Asthma Gastritis GERD without esophagitis Left sided abdominal pain Overweight (BMI 25.0-29.9) Varicose veins of bilateral lower extremities with pain Surgical History H/O gastric bypass (~2017) H/O tubal ligation History of esophagogastroduodenoscopy (EGD) Hx of cholecystectomy (~2014) Hx of colonoscopy Hx of laparoscopy Status post laser ablation of incompetent vein Family History Father HTN (hypertension) Diabetes mellitus Mother HTN (hypertension) Diabetes mellitus Asthma Brother No problems noted. Brother No problems noted. Brother No problems noted. Brother No problems noted. Sister No problems noted. Daughter No problems noted. Son No problems noted. Son No problems noted. Paternal Aunt Breast cancer Family/Other Colon cancer Maternal Aunt Ovarian cancer Social History Household Members: Spouse Housing: House Do you presently have visiting nurse or other home services: No Alcohol intake: never Patient Tobacco Use Status: Never used Tobacco Second Hand Smoke Exposure: No service: No Current occupational status: employed Cognitive needs: No Hearing needs: No Vision needs: No Female Reproductive History Menstrual Age of Menarche: 14 Review of Systems Const All systems reviewed & are unremarkable except as noted in HPI and below Reports as per HPI and Reports no additional complaints GI Reports no additional complaints Reports no additional complaints Physical Exam Vital Signs: Last Vital Signs BP 126/82 05/01/23 15:09 BMI result Body Mass Index 27.1 Assessment & Plan Assessment & Plan (1) Complex ovarian cyst: Comment: Left complex ovarian cyst resolved New onset right complex ovarian cyst Code(s): N83.299 - Other ovarian cyst, unspecified side Plan: Discussed with the patient ultrasound findings showing the previously identified left complex cyst has resolved. Discussed with the patient the new onset right complex ovarian cyst by ultrasound. Discussed with the patient the Ultrasound findings, the main limitation of transvaginal ultrasonography alone as a diagnostic tool to distinguish benign from malignant masses relates to its lack of specificity and low positive predictive value for cancer. The differential diagnosis discussed with the patient includes the following but not limited to: benign and malignant gynecological and non-gynecological causes. Laboratory evaluation includes serum tumor marker CA 125 . Discussed with the patient that CA 125 is a protein associated with epithelial ovarian malignancies, but also frequently expressed at lower levels by nonmalignant tissue. Elevation of CA 125 levels may occur in nonmalignant gynecologic conditions, and in non-gynecologic cancers, It is most useful in postmenopausal women and in identifying non mucinous epithelial cancer. The CA 125 level is elevated in 80% of patients with epithelial ovarian cancer but in only 50% of patients with stage I disease. The overall sensitivity of CA 125 testing in distinguishing benign from malignant adnexal masses reportedly ranges from 61% to 90%; discussed with the patient the specificity, positive predictive value and negative predictive value. Discussed with the patient options of treatment , in case CA 125 is not elevated, including laparoscopy ovarian cystectomy/oophorectomy vs. expectant management with repeat US in repeating pelvic US in 6-12 weeks from previous US. If the ovarian complex cyst is persistent larger and / or more complex looking, or higher CA 125 will refer to gynecologic Oncology. All pros, cons, risks and benefits of each approach were discussed with the patient including but not limited to a delay in the diagnosis and treatment of ovarian cancer affecting the prognosis; The patient decided to go ahead with expectant management. Instructions given the patient to schedule a 3 months follow-up ultrasound appointment. All questions were answered & the patient verbalized understanding and agreed with the plan. (2) Uterine myoma: Code(s): D25.9 - Leiomyoma of uterus, unspecified Plan: Discussed with the patient the findings on pelvic ultrasound & the risk of myosarcoma; discussed with the patient the options of treatment including expectant management versus hysterectomy; the pros and cons, risks benefits of each approach were discussed with the patient including the fact that in cases of myosarcoma, surgical treatment can lead to early diagnosis and positively affects the prognosis; after further discussion, the patient decided to proceed with expectant management. Will repeat pelvic ultrasound periodically. Instructions given to patient to call in case any of the following occurs: pressure symptoms, abnormal uterine bleeding, pelvic pain; and to schedule a future office follow-up appointment for reassessment and to order a repeat ultrasound . All questions answered, the patient verbalized understanding and agreed with the plan . Orders: Orders US pelvic and transvaginal 3 Months N83.299 - Other ovarian cyst, unspecified side CA-125 Today N83.299 - Other ovarian cyst, unspecified side Coding Level of Care Code Est Pt Level 3 (52951) Diagnoses Complex ovarian cyst N83.299 Uterine myoma D25.9
== END 2023-05-01 15:19 | disposition home or self-care (01) ==
LOC: HO.HWS 15:06
PROVIDERS: PCP Internal Medicine; Visit Provider Obstetrics & Gynecology
DX: N83.299 Other ovarian cyst, unspecified side (principal); D25.9 Leiomyoma of uterus, unspecified
CPT/HCPCS: 99213

== ENCOUNTER 2023-05-01 15:06 | Outpatient (REF) | payer OTHER, SELFPAY ==
[2023-05-03 11:54] LABS: CA-125 6 U/mL (<35)
== END 2023-05-01 15:07 | disposition home or self-care (01) ==
LOC: HO.LAB 15:06
PROVIDERS: PCP Internal Medicine; Visit Provider Obstetrics & Gynecology
DX: N83.299 Other ovarian cyst, unspecified side (principal); D25.9 Leiomyoma of uterus, unspecified
CPT/HCPCS: 36415; 86304; 99212

== ENCOUNTER 2023-05-24 14:58 | Outpatient (AMB) | payer OTHER, SELFPAY ==
[2023-05-24 15:00] VITALS: BP 118/82; PULSE 63; O2SAT 98; BMI 28.0
--- NOTE | 2023-05-24 15:00 | MHC.PC.OV ---
Vital Signs 05/24/23 15:00 Height 5 ft 1 in Weight 148 lb 0.8 oz BMI 28.0 BP 118/82 Blood Pressure Location Lt brachial Position Sitting Pulse 63 Pulse Source Pulse Oximeter Temp Source Skin Pulse Oximetry (%) 98 Oxygen Delivery Method Room Air Intake Visit Reasons: Psychology Referral-Depression Intake Note: pt requesting referral Social Service Assistant Required: No Allergies No Known Allergies [No Known Allergies*] Allergy (Verified 05/24/23 15:33) Medication List - Last Reconciled 05/24/23 by SABIHA Olvera acetaminophen 650 mg PO Q6H PRN albuterol sulfate 90 mcg/actuation (ProAir HFA) 1 inh inhalation QID PRN 30 days esomeprazole magnesium (Nexium) 40 mg PO DAILY ferrous sulfate 325 mg PO DAILY ibuprofen 600 mg PO Q8H PRN bajgoc-aoiukvhu-dzaglwe 24,000-76,000 -120,000 unit (Creon) 1 cap PO QID polyethylene glycol 3350 (Miralax) 17 grams PO DAILY sucralfate 1 g PO BEDTIME Tobacco use date assessed: 05/24/23 HPI Psychology Referral-Depression HPI Details Patient is a 52-year-old female presents today for an office visit for psychiatry referral. Patient of Dr. Lan. Patient reports feeling depressed due to her boyfriend of 3 years have left her and she reports feeling depressed for the past 1 month now. She reports that during the day she tries to go to her friend's house and she feels more depressed at night. Patient denies SI or HI. Patient would like to see Psychiatry. Patient would like to hold off on antidepressant medication at this time. [facility] Medical History Abdominal pain ZHOU positive Asthma Gastritis GERD without esophagitis Left sided abdominal pain Overweight (BMI 25.0-29.9) Varicose veins of bilateral lower extremities with pain Surgical History H/O gastric bypass (~2017) H/O tubal ligation History of esophagogastroduodenoscopy (EGD) Hx of cholecystectomy (~2014) Hx of colonoscopy Hx of laparoscopy Status post laser ablation of incompetent vein Family History Father HTN (hypertension) Diabetes mellitus Mother HTN (hypertension) Diabetes mellitus Asthma Brother No problems noted. Brother No problems noted. Brother No problems noted. Brother No problems noted. Sister No problems noted. Daughter No problems noted. Son No problems noted. Son No problems noted. Paternal Aunt Breast cancer Family/Other Colon cancer Maternal Aunt Ovarian cancer Social History Household Members: Spouse Housing: House Do you presently have visiting nurse or other home services: No Alcohol intake: never Patient Tobacco Use Status: Never used Tobacco Second Hand Smoke Exposure: No service: No Current occupational status: employed Cognitive needs: No Hearing needs: No Vision needs: No Female Reproductive History Menstrual Age of Menarche: 14 Questionnaire PHQ-9 Over the last 2 weeks, how often have you been bothered by any of the following problems? 1. Little interest or pleasure in doing things: not at all 2. Feeling down, depressed, or hopeless: nearly every day 3. Trouble falling or staying asleep, or sleeping too much: more than half the days 4. Feeling tired or having little energy: not at all 5. Poor appetite or overeating: not at all 6. Feeling bad about yourself - or that you are a failure or have let yourself or your family down: not at all 7. Trouble concentrating on things, such as reading the newspaper or watching television: not at all 8. Moving or speaking so slowly that other people could have noticed. Or the opposite - being so fidgety or restless that you have been moving around a lot more than usual: not at all 9. Thoughts that you would be better off or of hurting yourself in some way: not at all Total score: 5 Depression Screening Interpretation: Positive Depression Screening Follow-up: Community Mental Health Worker F/U 24251 - PHQ-9 Billing: Yes Source: Developed by Drs. Merritt Vargas, Nicole Lagunas, Natan Ceron and colleagues, with an educational ludmila from [employer]. Thrive Questionnaire Date Thrive assessed: 11/13/22 AUDIT C Alcohol Use Questionnaire (AUDIT-C) 1. How often do you have a drink containing alcohol?: Never 3. How often do you have six or more drinks on one occasion?: Never Total Score: 0 Score Reviewed/Action Taken: No LUISITO-7 AMB Questionnaire LUISITO-7 Date LUISITO - 7 assessed: 05/24/23 Feeling nervous, anxious, or on edge: 2 = More than half the days Not being able to stop or control worryin = Not at all Worrying too much about different things: 0 = Not at all Trouble relaxin = Not at all Being so restless that it is hard to sit still: 0 = Not at all Becoming easily annoyed or irritable: 0 = Not at all Feeling afraid as if something awful might happen: 0 = Not at all Total LUISITO-7 score (0-4 normal; 5-9 mild; 10-14 moderate; 15-21 severe): 2 Source: Developed by Drs. Merritt Vargas, Nicole Lagunas, Natan Ceron and colleagues, with an educational ludmila from [employer]. LUISITO-7 Assessment Billing LUISITO-7 Assessment Tool: LUISITO-7 Assessment 69368 Review of Systems Const Denies body aches, Denies chills, Denies fever(s) and Denies headache(s) Eyes Denies change in vision ENT Denies dizziness, Denies otalgia, Denies headache(s), Denies nasal discharge, Denies sinus pain and Denies sore throat Card Denies chest pain, Denies edema, Denies lightheadedness and Denies dyspnea Resp Denies cough, Denies dyspnea and Denies wheezing GI Denies abdominal pain Denies dysuria Musc Denies myalgias Skin/Breast Denies rash Neuro Denies dizziness and Denies headache(s) Aller/Immun Denies wheezing Physical exam (Primary Care) Vital Signs: Last Vital Signs Pulse 63 05/24/23 15:00 BP 118/82 05/24/23 15:00 Pulse Ox 98 05/24/23 15:00 Oxygen Delivery Method Room Air 05/24/23 15:00 BMI result Body Mass Index 28.0 Tobacco/Smoking Status: Tobacco use Status Tobacco use date assessed 05/24/23 05/24/23 15:01 Patient Tobacco Use Status Never used Tobacco 05/24/23 15:01 PHQ-9: PHQ-9 Score PHQ-9: Total score 5 05/24/23 15:06 Depression Screening Interpretation: Positive Depression Screening Follow-up: Community Mental Health Worker F/U Thrive Assessment: Date of Thrive Assessment Date Thrive assessed 11/13/22 05/24/23 15:01 Const General: cooperative and no acute distress Orientation/consciousness: patient oriented x3 HENMT Head: Yes normocephalic and Yes atraumatic Throat: Yes posterior oropharynx normal Eyes General: appearance normal, both eyes and all related structures Neck Neck: Yes normal visual inspection and Yes full ROM Resp Effort & Inspection: normal respiratory effort and able to speak in complete sentences Auscultation: clear to auscultation bilaterally, no crackles, no rales, no rhonchi and no wheezes Cardio Rate: regular rate Rhythm: regular rhythm Heart sounds: S1 normal heart sound present and S2 normal heart sound present GI Auscultation: normal bowel sounds Skin General skin exam: no rashes or lesions noted Neuro General: patient oriented x3 Gait exam (Neuro): Normal gait present Extrem General: Yes full ROM Assessment and Plan Assessment & Plan (1) Depression: Code(s): F32.A - Depression, unspecified Qualifiers: Depression Type: other depression Qualified Code(s): F32.89 - Other specified depressive episodes Plan: PHQ-9 score 5, patient denies SI or HI Patient would like to hold off on pharmacological intervention for depression at this time Urgent referral to counseling placed, referral to Psychiatry placed Patient was provided with crisis phone number Signs and symptoms reviewed when to notify provider or go to the emergency department Patient agreed with the plan Orders: Referrals Counseling Referral F32.A - Depression, unspecified Psychiatry Referral F32.A - Depression, unspecified Coding Level of Care Code Est Pt Level 3 (12503) Diagnoses Depression F32.89 Depression Type: other depression Additional Codes LUISITO-7 Assessment Billing - LUISITO-7 Assessment Tool: LUISITO-7 Assessment 44655 ([id number])
== END 2023-05-24 16:05 | disposition home or self-care (01) ==
PROVIDERS: PCP Internal Medicine; Visit Provider Nurse Practitioner Family
DX: F32.89 Other specified depressive episodes (principal)
CPT/HCPCS: 99213

== ENCOUNTER 2023-08-16 13:01 | Outpatient (REF) | payer OTHER, SELFPAY ==
--- NOTE | ~2023-08-16 | US_ITS ---
EXAMINATION: US PELVIS CLINICAL INFORMATION: Other ovarian cysts, unspecified side LMP 08/03/2023 COMPARISON: Pelvic ultrasound 04/17/2023 TECHNIQUE: Ultrasound of the pelvis is performed using both transabdominal and transvaginal transducers along with Doppler. Transvaginal imaging is performed due to inadequate visualization transabdominally. FINDINGS: Uterus: The uterus is anteverted and measures 7.4 x 3.5 x 4.2 cm. 0.9 x 0.6 x 1.2 cm subserosal fibroid in the anterior lower uterine segment previously measured 1.3 cm in maximal dimension. The endometrial thickness is 0.2 cm An IUD appears in proper position. Adnexa: Both ovaries are visualized. There is normal color flow to the adnexa. There is no ovarian torsion. There is no pelvic ascites or fluid collection. Right ovary is normal in appearance and measures 2.0 x 1.0 x 1.9 cm. Volume 2.0 mL. Left ovary measures 2.5 x 1.1 x 1.8 cm. Volume 2.6 mL. 1.0 x 1.2 x 0.9 cm resolving corpus luteum requires no follow-up imaging. US/US pelvic and transvaginal IMPRESSION: 1. 1.2 cm subserosal fibroid in the anterior lower uterine segment. 2. Normal ovaries. 3. IUD appears in proper position.
== END 2023-08-16 13:02 | disposition home or self-care (01) ==
LOC: HO.US 13:01
PROVIDERS: PCP Internal Medicine; Visit Provider Obstetrics & Gynecology
DX: N83.299 Other ovarian cyst, unspecified side (principal)
CPT/HCPCS: 76830; 76856

== ENCOUNTER 2023-08-21 15:39 | Outpatient (REF) | payer OTHER, SELFPAY | END 2023-08-21 15:40 | disposition home or self-care (01) | LOC: HO.MAMMO 15:39 | PROVIDERS: PCP Internal Medicine; Visit Provider Internal Medicine | DX: Z12.31 Encounter for screening mammogram for malignant neoplasm of breast (principal) | CPT/HCPCS: 77063; 77067 ==

== ENCOUNTER → 2023-08-21 16:00 | Outpatient (BNV) | payer OTHER, SELFPAY | PROVIDERS: PCP Internal Medicine; Visit Provider Radiology Diagnostic Radiology | DX: Z12.31 Encounter for screening mammogram for malignant neoplasm of breast (principal) | CPT/HCPCS: 77063; 77067 ==

== ENCOUNTER 2023-10-21 08:58 | Outpatient (AMB) | payer OTHER, SELFPAY ==
[2023-10-21 09:00] VITALS: BP 112/78; PULSE 78; O2SAT 98; BMI 27.8
--- NOTE | 2023-10-21 09:00 | A.OFFPC_ITS ---
Vital Signs 10/21/23 09:00 Height 5 ft 1 in Weight 147 lb BMI 27.8 BP 112/78 Blood Pressure Location Lt brachial Position Sitting Pulse 78 Pulse Source Pulse Oximeter Pulse Oximetry (%) 98 Oxygen Delivery Method Room Air Intake Visit Reasons: gastritis, anemia Heel Blacker Required: No Accompanied by: Self / Same As Patient Allergies No Known Allergies [No Known Allergies*] Allergy (Verified 10/21/23 09:08) Medication List - Last Reconciled 10/21/23 by Ronny Lan MD acetaminophen 650 mg PO Q6H PRN albuterol sulfate 90 mcg/actuation (ProAir HFA) 1 inh inhalation QID PRN 30 days esomeprazole magnesium (Nexium) 40 mg PO DAILY ferrous sulfate 325 mg PO DAILY ibuprofen 600 mg PO Q8H PRN itpogw-rlijobyf-pizrdww 24,000-76,000 -120,000 unit (Creon) 1 cap PO QID polyethylene glycol 3350 (Miralax) 17 grams PO DAILY sucralfate 1 g PO BEDTIME Tobacco use date assessed: 10/21/23 Dental Screening Dental Screen Date: 10/21/23 Did you have a dental visit in the last 12 months?: Yes Did you have a dental problem in the last 6 months where you did not have access to dental care?: No Was dental information given to patient?: Patient has dentist HPI gastritis, anemia HPI Details Patient comes in today for her follow up visit States that she feels okay She denies any headaches or dizziness Denies any chest pains, no SOB No nausea/vomiting, no abdominal pain but states that she feels bloated at times when she gets constipated Has Rx but takes them only as needed Adds that she has been experiencing increased pain in her bones lately, especially over her arms and legs Denies any joint pains Was feeling depressed a few months ago and came in to request for psychiatry referral but states that she feels much better now and no longer needs to see psychiatry [facility] Medical History (Updated 10/21/23 @ 09:42 by Ronny Lan MD) Constipation GERD without esophagitis Gastritis Asthma Left sided abdominal pain Overweight (BMI 25.0-29.9) Abdominal pain ZHOU positive Varicose veins of bilateral lower extremities with pain Surgical History History of esophagogastroduodenoscopy (EGD) Hx of colonoscopy Hx of laparoscopy Status post laser ablation of incompetent vein H/O tubal ligation Hx of cholecystectomy (~2015) H/O gastric bypass (~2018) Family History Father HTN (hypertension) Diabetes mellitus Mother HTN (hypertension) Diabetes mellitus Asthma Brother No problems noted. Brother No problems noted. Brother No problems noted. Brother No problems noted. Sister No problems noted. Daughter No problems noted. Son No problems noted. Son No problems noted. Paternal Aunt Breast cancer Family/Other Colon cancer Maternal Aunt Ovarian cancer Social History Household Members: Spouse Housing: House Do you presently have visiting nurse or other home services: No Alcohol intake: never Patient Tobacco Use Status: Never used Tobacco Second Hand Smoke Exposure: No service: No Current occupational status: employed Cognitive needs: No Hearing needs: No Vision needs: No Female Reproductive History Menstrual Age of Menarche: 14 Questionnaire PHQ-9 Over the last 2 weeks, how often have you been bothered by any of the following problems? 1. Little interest or pleasure in doing things: not at all 2. Feeling down, depressed, or hopeless: nearly every day 3. Trouble falling or staying asleep, or sleeping too much: more than half the days 4. Feeling tired or having little energy: not at all 5. Poor appetite or overeating: not at all 6. Feeling bad about yourself - or that you are a failure or have let yourself or your family down: not at all 7. Trouble concentrating on things, such as reading the newspaper or watching television: not at all 8. Moving or speaking so slowly that other people could have noticed. Or the opposite - being so fidgety or restless that you have been moving around a lot more than usual: not at all 9. Thoughts that you would be better off or of hurting yourself in some w ay: not at all Total score: 5 Depression Screening Interpretation: Positive Depression Screening Follow-up: Existing condition and Community Mental Health Worker F/U Depression Screening Done: Yes 68969 - PHQ-9 Billing: Yes Source: Developed by Drs. Merritt Vargas, Nicole Lagunas, Natan Ceron and colleagues, with an educational ludmila from [employer]. Thrive Questionnaire Date Thrive assessed: 10/21/23 I am a: Patient What is your living situation today?: I have a steady place to live Within the past 12 months, did the food you bought not last and you didn't have the money to get more?: Never true Within the past 12 months, did you worry whether your food would run out before you got money to buy more?: Never true Do you have trouble paying for medicines?: No Do you have trouble getting transportation to medical appointments?: No Do you have trouble paying your heating and electricity bill?: No Do you have trouble taking care of your child, family member or friend?: No Do you have trouble with day-to-day activities such as bathing, preparing meals, shopping, managing finances, etc.?: No Are you currently unemployed and looking for a job?: No Are you interested in more education?: No Please select the resources that you would like help with: None Currently or been in a relationship where the following occur: no concerns reported AUDIT C Alcohol Use Questionnaire (AUDIT-C) 1. How often do you have a drink containing alcohol?: Never 3. How often do you have six or more drinks on one occasion?: Never Total Score: 0 Score Reviewed/Action Taken: Yes LUISITO-7 AMB Questionnaire LUISITO-7 Date LUISITO - 7 assessed: 10/21/23 Feeling nervous, anxious, or on edge: 2 = More than half the days Not being able to stop or control worryin = Not at all Worrying too much about different things: 0 = Not at all Trouble relaxin = Not at all Being so restless that it is hard to sit still: 0 = Not at all Becoming easily annoyed or irritable: 0 = Not at all Feeling afraid as if something awful might happen: 0 = Not at all Total LUISITO-7 score (0-4 normal; 5-9 mild; 10-14 moderate; 15-21 severe): 2 Source: Developed by Drs. Merritt Vargas, Nicole Lagunas, Natan Ceron and colleagues, with an educational ludmila from [employer]. LUISITO-7 Assessment Billing LUISITO-7 Assessment Tool: LUISITO-7 Assessment 23460 Review of Systems Const Denies chills, Denies fatigue, Denies fever(s) and Denies headache(s) ENT Denies dysphagia, Denies dizziness, Denies otalgia, Denies headache(s), Denies neck pain, Denies odynophagia and Denies sore throat Card Denies chest pain, Denies palpitations and Denies dyspnea Resp Denies cough and Denies dyspnea GI Denies abdominal pain, Reports bloating (at times), Reports constipation (increased at times), Denies dysphagia, Denies heartburn, Denies diarrhea, Denies nausea, Denies odynophagia and Denies vomiting Denies difficulty voiding, Denies nocturia and Denies dysuria Musc Reports myalgias (mostly in her bones - described symptoms as deep bone pain at times), Denies arthralgias and Denies neck pain Skin/Breast Denies rash Neuro Denies dizziness and Denies headache(s) Endo Denies fatigue and Denies palpitations Physical exam (Primary Care) Vital Signs: Last Vital Signs Pulse 78 10/21/23 09:00 BP 112/78 10/21/23 09:00 Pulse Ox 98 10/21/23 09:00 Oxygen Delivery Method Room Air 10/21/23 09:00 BMI result Body Mass Index 27.8 Tobacco/Smoking Status: Tobacco use Status Tobacco use date assessed 10/21/23 10/21/23 09:06 Patient Tobacco Use Status Never used Tobacco 10/21/23 09:06 PHQ-9: PHQ-9 Score PHQ-9: Total score 5 10/21/23 09:06 Depression Screening Interpretation: Positive Depression Screening Follow-up: Existing condition and Community Mental Health Worker F/U Thrive Assessment: Date of Thrive Assessment Date Thrive assessed 10/21/23 10/21/23 09:06 Currently or been in a relationship where the following occur: no concerns reported Const General: no acute distress and alert HENMT Ears: TM's normal bilaterally and EAC's normal Throat: Yes posterior oropharynx normal and Yes tonsils normal (no TP congestion noted) Neck Neck: Yes no lymphadenopathy and Yes supple Resp Auscultation: clear to auscultation bilaterally, no rales and no wheezes Cardio Rate: regular rate Rhythm: regular rhythm Heart sounds: no murmurs GI Palpation (GI): Soft to palpation and nontender Auscultation: normal bowel sounds Extrem General: Yes no clubbing, cyanosis or edema Assessment and Plan Assessment & Plan (1) Gastritis: Code(s): K29.70 - Gastritis, unspecified, without bleeding Qualifiers: Gastritis type: superficial Chronicity: chronic Gastritis bleeding: without bleeding Qualified Code(s): K29.30 - Chronic superficial gastritis without bleeding Plan: EGD done back in January 2023 revealed (+) changes of moderate chronic active gastritis States that symptoms have improved significantly on current Rx and she has not had any stomach issues other than on and off constipation for months now Continue Nexium 40 mg QD and Sucralfate 1 gm Q HS Follow up with GI as scheduled (2) Anemia: Code(s): D64.9 - Anemia, unspecified Qualifiers: Anemia type: iron deficiency Iron deficiency anemia type: chronic blood loss Qualified Code(s): D50.0 - Iron deficiency anemia secondary to blood loss (chronic) Plan: Was most likely due to a combination of iron-deficiency and her heavy menstrual bleeding Has not had her CBC checked in a while - will send her for some repeat labs GLEN for follow up and will try to continue monitoring her CBC regularly Continue Ferrous Sulfate 325 mg QD (3) Asthma: Code(s): J45.909 - Unspecified asthma, uncomplicated Qualifiers: Asthma severity: unspecified severity Asthma persistence: intermittent Asthma complication type: uncomplicated Qualified Code(s): J45.20 - Mild intermittent asthma, uncomplicated Plan: Stable; continue Albuterol HFA 2 inhalations Q 6 hours PRN (4) Constipation: Code(s): K59.00 - Constipation, unspecified Qualifiers: Constipation type: unspecified constipation type Qualified Code(s): K59.00 - Constipation, unspecified Plan: Discussed that her oral iron supplements are likely contributing to her anemia Advised that she should be taking her Miralax 17 gm DAILY for it to be effective and that she can still take some OTC stool softeners PRN for symptomatic relief She is also encouraged to increase her oral fluids and dietary fiber intake (5) Bone pain: Code(s): M89.8X9 - Other specified disorders of bone, unspecified site Plan: Will send her for some labs GLEN for further evaluation (6) Overweight (BMI 25.0-29.9): Comment: (+) Hx of gastric bypass in 2018 Code(s): E66.3 - Overweight Plan: Reinforced diet/exercise as tolerated/lose weight S/p gastric bypass surgery in 2018 - surgery was done in [place], [place] Plan To return in 4 months for her next annual physical examination Orders: Orders Complete Blood Count Auto Diff Today D64.9 - Anemia, unspecified, K21.9 - Gastro-esophageal reflux disease without esophagitis Comprehensive [place]. Panel Fast Today E78.00 - Pure hypercholesterolemia, unspecified, K21.9 - Gastro-esophageal reflux disease without esophagitis Lipid Panel Today E78.00 - Pure hypercholesterolemia, unspecified, K21.9 - Gastro-esophageal reflux disease without esophagitis UA CC w/rflx Micro + Cult Today K21.9 - Gastro-esophageal reflux disease without esophagitis, R30.0 - Dysuria Vitamin D 25-OH Total Today E55.9 - Vitamin D deficiency, unspecified, K21.9 - Gastro-esophageal reflux disease without esophagitis Erythrocyte Sedimentation Rate Today M89.8X9 - Other specified disorders of bone, unspecified site, R20.2 - Paresthesia of skin Lyme IgG/IgM w/reflex to WB Today M89.8X9 - Other specified disorders of bone, unspecified site, R20.2 - Paresthesia of skin Vitamin B12 and Folate Today E53.8 - Deficiency of other specified B group vitamins, M89.8X9 - Other specified disorders of bone, unspecified site, R20.2 - Paresthesia of skin TSH reflex Free T4 Today E78.00 - Pure hypercholesterolemia, unspecified, K21.9 - Gastro-esophageal reflux disease without esophagitis C Reactive Protein Today M89.8X9 - Other specified disorders of bone, unspecif ied site, R20.2 - Paresthesia of skin Coding Level of Care Code Est Pt Level 4 (30724) Diagnoses Chronic superficial gastritis without bleeding K29.30 Gastritis type: superficial Chronicity: chronic Gastritis bleeding: without bleeding Iron deficiency anemia due to chronic blood loss D50.0 Anemia type: iron deficiency Iron deficiency anemia type: chronic blood loss Intermittent asthma without complication, unspecified asthma severity J45.20 Asthma severity: unspecified severity Asthma persistence: intermittent Asthma complication type: uncomplicated Constipation, unspecified constipation type K59.00 Constipation type: unspecified constipation type Bone pain M89.8X9 Overweight (BMI 25.0-29.9) E66.3 Additional Codes LUISITO-7 Assessment Billing - LUISITO-7 Assessment Tool: LUISITO-7 Assessment 64574 ([id number])
== END 2023-10-21 09:32 | disposition home or self-care (01) ==
PROVIDERS: PCP Internal Medicine; Visit Provider Internal Medicine
DX: K29.30 Chronic superficial gastritis without bleeding (principal); D50.0 Iron deficiency anemia secondary to blood loss (chronic); J45.20 Mild intermittent asthma, uncomplicated; K59.00 Constipation, unspecified; M89.8X9 Other specified disorders of bone, unspecified site; E66.3 Overweight; Z98.84 Bariatric surgery status
CPT/HCPCS: 99214

== ENCOUNTER 2023-10-28 07:12 | Outpatient (REF) | payer OTHER, SELFPAY ==
[2023-10-28 07:25] LABS: MANUAL DIFF FLAG NO
[2023-10-28 07:44] LABS: Basophils Percent Auto 0.5 % (0-2); Eosinophils Percent Auto 0.3 % (0-4); Hematocrit 36.3 % (37.0-47.0); Hemoglobin 11.4 g/dl (12.0-16.0); Imm Gran Abs Auto 0.02 X10*3/uL (0.00-0.03); Imm Gran Pct Auto 0.3 % (0.0-0.4); Lymphocytes Absolute Auto 2.5 X10*3/uL (1.2-4.9); Lymphocytes Percent Auto 40.3 % (20-40); Mean Corpuscular HGB Conc 31.4 g/dl (31.0-35.0); Mean Corpuscular Hemoglobin 25.6 pg (27.0-33.0); Mean Corpuscular Volume 81.6 fL (80.0-98.0); Mean Platelet Volume 10.6 fL (9.4-12.3); Monocytes Absolute Auto 0.6 X10*3/uL (0.1-1.2); Monocytes Percent Auto 9.2 % (2-11); Neutrophils Percent Auto 49.4 % (45-73); Platelet Count 224 X10*3/uL (160-400); Red Blood Count 4.45 X10*6/uL (4.20-5.50); Red Cell Distribution Width 15.8 % (11.0-16.0); White Blood Count 6.1 X10*3/uL (4.8-10.8)
[2023-10-28 07:49] LABS: Appearance Urine Cloudy; Color Urine Yellow; Glucose Urine UA Negative (Negative); Leukocyte Esterase Urine Moderate (2+) (Negative); Nitrite Urine Positive (Negative); PH 5.5 (5.0-9.0); Specific Gravity - Urine >= 1.030 (1.005-1.025); UMIC TRIGGER UACC YES; Urine Blood Trace (Negative); Urine Ketones Negative (Negative); Urine Protein Negative (Neg-Trace)
[2023-10-28 07:52] LABS: Bacteria Urine 4+ (None Seen); Hyaline Casts Urine 0-2 /LPF (0-2); RBC Urine 0-2 /HPF (0-2); UACC Culture Trigger YES; WBC Urine >50 /HPF (0-5)
[2023-10-28 08:08] LABS: Alanine Aminotransferase 12 U/L (0-31); Albumin Level 3.5 g/dL (3.5-5.0); Alkaline Phosphatase 60 U/L (39-117); Anion Gap 11 (12-20); Aspartate Amino Transferase 14 U/L (5-31); Bilirubin Total 0.8 mg/dL (0.0-1.0); Blood Urea Nitrogen 13 mg/dL (9-16); C Reactive Protein < 0.10 mg/dL (< or = 0.50); Calcium 8.3 mg/dL (8.4-10.2); Carbon Dioxide 23 mmol/L (22-29); Chloride 112 mmol/L (96-108); Cholesterol 155 mg/dL (<200); Estimated Glomerular Filt Rate > 60; Glucose Fasting 91 mg/dL (60-99); HDL Cholesterol 56 mg/dL (>40); LDL Cholesterol Calculated 87 mg/dL (<100); Potassium 3.7 mmol/L (3.3-5.1); Sodium 142 mmol/L (135-145); Total Protein 6.2 g/dL (6.5-8.0); Triglycerides 63 mg/dL (<150)
[2023-10-28 08:24] LABS: TSH reflex Free T4 0.93 uIU/mL (0.32-4.0); Vitamin D 25-OH Total 23.2 ng/mL (>30)
[2023-10-28 08:28] LABS: Erythrocyte Sedimentation Rate 12 MM/HR (0-20)
[2023-10-28 08:36] LABS: Folate 10.1 ng/mL (> or = 4.0); Vitamin B12 453 pg/mL (200-900)
[2023-10-29 12:49] LABS: Lyme Abs Screen <0.90 index
== END 2023-10-28 07:13 | disposition home or self-care (01) ==
LOC: HO.LAB 07:12
PROVIDERS: PCP Internal Medicine; Visit Provider Internal Medicine
DX: E78.00 Pure hypercholesterolemia, unspecified (principal); K21.9 Gastro-esophageal reflux disease without esophagitis; R20.2 Paresthesia of skin; M89.8X9 Other specified disorders of bone, unspecified site; D64.9 Anemia, unspecified; E55.9 Vitamin D deficiency, unspecified; E53.8 Deficiency of other specified B group vitamins; N83.299 Other ovarian cyst, unspecified side; D25.9 Leiomyoma of uterus, unspecified
CPT/HCPCS: 36415; 80053; 80061; 81001; 82306; 82607; 82746; 84443; 85025; 85652; 86140; 86617; 86618; 87086; 87088; 87186; 99212

== ENCOUNTER 2023-10-28 07:30 | Outpatient (AMB) | payer OTHER, SELFPAY ==
[2023-10-28 07:32] VITALS: BP 120/76; BMI 27.5
--- NOTE | 2023-10-28 07:32 | A.OFFVIS_ITS ---
Intake Vital Signs 10/28/23 07:32 Height 5 ft 1 in Weight 145 lb 8.081 oz BMI 27.5 BP 120/76 Intake Visit Reasons: result follow up Information Interpreted: non-clinical & clinical Allergies No Known Allergies [No Known Allergies*] Allergy (Verified 10/28/23 07:36) Is last menstrual period known: Yes Last menstrual period: 09/30/23 HPI HPI Comments History of Present Illness Details The patient is presenting for follow-up regarding complex ovarian cyst. CA 125 repeated in 04/28 was within normal Pelvic ultrasound done in 08/29 showed the following: Uterus: The uterus is anteverted and measures 7.4 x 3.5 x 4.2 cm. 0.9 x 0.6 x 1.2 cm subserosal fibroid in the anterio r lower uterine segment previously measured 1.3 cm in maximal dimension. The endometrial thickness is 0.2 cm An IUD appears in proper position. Adnexa: Both ovaries are visualized. There is normal color flow to the adnexa. There is no ovarian torsion. There is no pelvic ascites or fluid collection. Right ovary is normal in appearance and measures 2.0 x 1.0 x 1.9 cm. Volume 2.0 mL. Left ovary measures 2.5 x 1.1 x 1.8 cm. Volume 2.6 mL. 1.0 x 1.2 x 0.9 cm resolving corpus luteum requires no follow-up imaging. Mammogram done in 09/28 was BI-RADS 1 [facility] Medical History Constipation GERD without esophagitis Gastritis Asthma Left sided abdominal pain Overweight (BMI 25.0-29.9) Abdominal pain ZHOU positive Varicose veins of bilateral lower extremities with pain Surgical History History of esophagogastroduodenoscopy (EGD) Hx of colonoscopy Hx of laparoscopy Status post laser ablation of incompetent vein H/O tubal ligation Hx of cholecystectomy (~2014) H/O gastric bypass (~2018) Family History Father HTN (hypertension) Diabetes mellitus Mother HTN (hypertension) Diabetes mellitus Asthma Brother No problems noted. Brother No problems noted. Brother No problems noted. Brother No problems noted. Sister No problems noted. Daughter No problems noted. Son No problems noted. Son No problems noted. Paternal Aunt Breast cancer Family/Other Colon cancer Maternal Aunt Ovarian cancer Social History Household Members: Spouse Housing: House Do you presently have visiting nurse or other home services: No Alcohol intake: never Patient Tobacco Use Status: Never used Tobacco Second Hand Smoke Exposure: No service: No Current occupational status: employed Cognitive needs: No Hearing needs: No Vision needs: No Female Reproductive History Menstrual Age of Menarche: 14 Date of last menstrual period: 09/30/23 Review of Systems Const All systems reviewed & are unremarkable except as noted in HPI and below Reports as per HPI and Reports no additional complaints GI Reports no additional complaints Reports no additional complaints Physical Exam Vital Signs: Last Vital Signs BP 120/76 10/28/23 07:32 BMI result Body Mass Index 27.5 Assessment & Plan Assessment & Plan (1) Complex ovarian cyst: Comment: Resolved Code(s): N83.299 - Other ovarian cyst, unspecified side Plan: Discussed with the patient ultrasound findings showing the previously identified complex cyst has resolved. The patient was instructed to call if symptoms recur. All questions were answered the patient verbalized understanding. (2) Uterine myoma: Code(s): D25.9 - Leiomyoma of uterus, unspecified Plan: Discussed with the patient the findings on pelvic ultrasound & the risk of myosarcoma; discussed with the patient the options of treatment including expectant management versus hysterectomy; the pros and cons, risks benefits of each approach were discussed with the patient including the fact that in cases of myosarcoma, surgical treatment can lead to early diagnosis and positively affects the prognosis; after further discussion, the patient decided to proceed with expectant management. Will repeat pelvic ultrasound periodically. Instructions given to patient to call in case any of the following occurs: pressure symptoms, abnormal uterine bleeding, pelvic pain; and to schedule a future office follow-up appointment for reassessment and to order a repeat ultrasound . All questions answered, the patient verbalized understanding and agreed with the plan . Coding Level of Care Code Est Pt Level 3 (17765) Diagnoses Complex ovarian cyst N83.299 Uterine myoma D25.9
== END 2023-10-28 07:42 | disposition home or self-care (01) ==
PROVIDERS: PCP Internal Medicine; Visit Provider Obstetrics & Gynecology
DX: N83.299 Other ovarian cyst, unspecified side (principal); D25.9 Leiomyoma of uterus, unspecified
CPT/HCPCS: 99213

== ENCOUNTER 2023-12-02 08:10 | Outpatient (AMB) | payer OTHER, SELFPAY ==
--- NOTE | 2023-12-02 08:14 | MHC.OFFVIS ---
Intake Vital Signs 12/02/23 08:17 Height 5 ft 1 in Weight 143 lb 4.807 oz BMI 27.1 BP 159/72 H Blood Pressure Location Lt brachial Position Sitting Pulse 72 Intake Visit Reasons: 6 Month Exocrine Pancreatic Insufficiency Intake Note: Linnette presents in the office as a 6 month follow up. CC: Sealer Dry Cell Required: No Allergies No Known Allergies [No Known Allergies*] Allergy (Verified 12/02/23 08:17) HPI 6 Month Exocrine Pancreatic Insufficiency HPI Details LAST VISIT: Exocrine pancreatic insufficiency Continue current dose of Creon. GERD without esophagitis Continue taking Nexium every morning. Patient will continue avoid dietary triggers and late night snacking. IBS (irritable bowel syndrome) Occasional cramping when constipated. Continues and MiraLax. Patient was encouraged to use it every day, however patient states that she would like to use it when she needs it. I will see patient in 6 months, sooner on as needed basis. Patient is agreeable to this plan and verbalizes understanding of instructions. She was given the opportunity to ask questions and all questions answered. TODAY'S VISIT: Patient is here today for follow-up. Patient reports that she lost her Creon and has not been taking it for the last few weeks. Patient also ran out of Nexium. Patient reports that she has been feeling well, however occasionally he will have postprandial abdominal bloating and epigastric discomfort. Patient denies any nausea or vomiting. Patient denies dyspepsia, dysphagia or odynophagia. Denies melena, hematochezia, unintentional weight loss or ribbon like stools. Patient reports that she had abdominoplasty done few months ago and she has been feeling well after her surgery [facility] Medical History Constipation GERD without esophagitis Gastritis Asthma Left sided abdominal pain Overweight (BMI 25.0-29.9) Abdominal pain ZHOU positive Varicose veins of bilateral lower extremities with pain Surgical History History of esophagogastroduodenoscopy (EGD) Hx of colonoscopy Hx of laparoscopy Status post laser ablation of incompetent vein H/O tubal ligation Hx of cholecystectomy (~2014) H/O gastric bypass (~2018) Family History Father HTN (hypertension) Diabetes mellitus Mother HTN (hypertension) Diabetes mellitus Asthma Brother No problems noted. Brother No problems noted. Brother No problems noted. Brother No problems noted. Sister No problems noted. Daughter No problems noted. Son No problems noted. Son No problems noted. Paternal Aunt Breast cancer Family/Other Colon cancer Maternal Aunt Ovarian cancer Social History Household Members: Spouse Housing: House Do you presently have visiting nurse or other home services: No Alcohol intake: never Patient Tobacco Use Status: Never used Tobacco Second Hand Smoke Exposure: No service: No Current occupational status: employed Cognitive needs: No Hearing needs: No Vision needs: No Female Reproductive History Menstrual Age of Menarche: 14 Review of Systems Const Denies weight gain and Denies weight loss ENT Reports no additional complaints, Denies dysphagia and Denies odynophagia Card Reports no additional complaints Resp Reports no additional complaints GI Denies abdominal pain, Denies belching, Denies melena, Reports bloating, Reports constipation, Denies dysphagia, Denies excessive flatus, Denies dyspepsia, Reports heartburn, Denies diarrhea, Denies loose stools, Denies nausea, Denies odynophagia and Denies vomiting Reports no additional complaints Musc Reports no additional complaints Neuro Reports no additional complaints Psych Reports no additional complaints Endo Reports no additional complaints Physical Exam Vital Signs: Last Vital Signs Pulse 72 12/02/23 08:17 BP 159/72 H 12/02/23 08:17 BMI result Body Mass Index 27.1 Const General: healthy appearing, no acute distress and well developed Nutritional Appearance: well nourished Orientation/consciousness: patient oriented x3 Resp Effort & Inspection: normal respiratory effort, able to speak in complete sentences, no tracheal deviation and symmetric chest movement Auscultation: clear to auscultation bilaterally Cardio Rate: regular rate GI Inspection: Yes normal to inspection and No distended Palpation (GI): Soft to palpation, not firm, nontender and No hepatosplenomegaly present Auscultation: normal bowel sounds General: Yes no CVA tenderness Back/Spine/Pelvis Back: no CVA tenderness Skin General skin exam: elasticity normal, turgor normal and dry skin Neuro General: patient oriented x3 Psych Appearance: grossly normal Mental Status: mental status grossly normal Assessment & Plan Assessment & Plan (1) Exocrine pancreatic insufficiency: Code(s): K86.81 - Exocrine pancreatic insufficiency (2) GERD without esophagitis: Code(s): K21.9 - Gastro-esophageal reflux disease without esophagitis (3) IBS (irritable bowel syndrome): Code(s): K58.9 - Irritable bowel syndrome without diarrhea Qualifiers: Irritable bowel syndrome type: without diarrhea Qualified Code(s): K58.9 - Irritable bowel syndrome without diarrhea Plan Patient will continue Creon. Discussed with her avoiding dietary triggers. Continue Nexium every morning. Discussed with patient avoiding eating late at night. Staying upright for minimal 3 hours after meals discussed with patient. I will see patient in 6 months, sooner on as needed basis. Patient is agreeable to this plan and verbalizes understanding of instructions. She was given the opportunity to ask questions and all questions answered Thank you for allowing me to participate in her care Medications: Refilled aclvri-weqlxufw-dorlynz 24,000-76,000 -120,000 unit (Creon) administer with meals and/or snacks 1 cap PO QID 120 caps 5RF K86.81 - Exocrine pancreatic insufficiency esomeprazole magnesium (Nexium) 40 mg PO DAILY 90 caps 5RF K21.9 - Gastro-esophageal reflux disease without esophagitis polyethylene glycol 3350 (Miralax) 17 grams PO DAILY 510 grams 2RF Discontinued sucralfate Discontinued Reason: Doctor's Order 1 g PO BEDTIME 30 tabs 4RF R19.7 - Diarrhea, unspecified Coding Level of Care Code Est Pt Level 4 (67797) Diagnoses Exocrine pancreatic insufficiency K86.81 GERD without esophagitis K21.9 Irritable bowel syndrome without diarrhea K58.9 Irritable bowel syndrome type: without diarrhea Time Spent (min) 35 Comment 20 minutes spent with patient and additional 15 minutes spent reviewing her records
[2023-12-02 08:17] VITALS: BP 159/72; PULSE 72; BMI 27.1
== END 2023-12-02 08:45 | disposition home or self-care (01) ==
PROVIDERS: PCP Internal Medicine; Visit Provider Nurse Practitioner Family
DX: K86.81 Exocrine pancreatic insufficiency (principal); K21.9 Gastro-esophageal reflux disease without esophagitis; K58.9 Irritable bowel syndrome, unspecified
CPT/HCPCS: 99214

== ENCOUNTER → 2023-12-02 08:10 | Outpatient (BNVA) | payer OTHER, SELFPAY | PROVIDERS: PCP Internal Medicine; Visit Provider Nurse Practitioner Family | DX: K86.81 Exocrine pancreatic insufficiency (principal); K21.9 Gastro-esophageal reflux disease without esophagitis; K58.9 Irritable bowel syndrome, unspecified | CPT/HCPCS: 99212 ==

== ENCOUNTER 2024-01-01 17:33 | Emergency (ER) | payer OTHER, SELFPAY ==
[2024-01-01 18:03] VITALS: BP 155/86; PULSE 69; RESP 16; TEMP 36.5; O2SAT 100; BMI 28.9
--- NOTE | 2024-01-01 18:06 | ED_ITS ---
HPI - General Adult General Chief complaint: Abdominal Pain Stated complaint: vomiting and diarrhea Related Data Home Medications Medication Instructions Recorded Confirmed acetaminophen 325 mg tablet 650 mg PO Q6H PRN Pain 03/03/22 10/21/23 ferrous sulfate 325 mg (65 mg 325 mg PO DAILY 09/07/22 10/21/23 iron) tablet,delayed release Previous Rx's Medication Instructions Recorded ibuprofen 600 mg tablet 600 mg PO Q8H PRN pain #20 tabs 11/29/22 albuterol sulfate 90 mcg/actuation 1 inh inhalation QID PRN shortness 12/14/22 aerosol inhaler (ProAir HFA) of breath or wheezing 30 days #8.5 grams esomeprazole magnesium 40 mg 40 mg PO DAILY #90 caps 12/02/23 capsule,delayed release (Nexium) [id number] 1 cap PO QID #120 caps 12/02/23 24,000-76,000-120,000 unit capsule,delayed rel (Creon) polyethylene glycol 3350 17 17 g PO DAILY #510 grams 12/02/23 gram/dose oral powder (Miralax) Allergies Allergy/AdvReac Type Severity Reaction Status Date / Time No Known Allergies Allergy Verified 12/02/23 08:17 [No Known Allergies*] [facility] Past Medical History Medical History Constipation GERD without esophagitis Gastritis Asthma Left sided abdominal pain Overweight (BMI 25.0-29.9) Abdominal pain ZHOU positive Varicose veins of bilateral lower extremities with pain Surgical History History of esophagogastroduodenoscopy (EGD) Hx of colonoscopy Hx of laparoscopy Status post laser ablation of incompetent vein H/O tubal ligation Hx of cholecystectomy (~2014) H/O gastric bypass (~2018) Family History Family History Father HTN (hypertension) Diabetes mellitus Mother HTN (hypertension) Diabetes mellitus Asthma Brother No problems noted. Brother No problems noted. Brother No problems noted. Brother No problems noted. Sister No problems noted. Daughter No problems noted. Son No problems noted. Son No problems noted. Paternal Aunt Breast cancer Family/Other Colon cancer Maternal Aunt Ovarian cancer Social History Social History Household Members: Spouse Housing: House Do you presently have visiting nurse or other home services: No Alcohol intake: never Patient Tobacco Use Status: Never used Tobacco Second Hand Smoke Exposure: No Advance Directives: No Advance Directives Information Provided: No service: No Current occupational status: employed Cognitive needs: No Hearing needs: No Vision needs: No Physical Exam ED Vital Signs: Vital Signs - 24 hr 01/01/24 18:03 01/01/24 23:28 01/02/24 05:59 Temperature 97.7 F 98.5 F 98.2 F Pulse Rate 69 72 67 Respiratory Rate 16 16 16 Blood Pressure 155/86 H 140/89 H 145/85 H Pulse Oximetry 100 98 98 Oxygen Delivery Method Room Air Room Air Room Air BMI result Body Mass Index 28.9 Course Course Course Narrative: This is an RME: Additional HPI, ROS, PE not included below will be deferred to primary provider. This is [id number] presenting to the ER with complaints of abdominal pain, nausea, vomiting, and diarrhea. She is reporting feeling weak. Reporting epigastric pain. Mother is sick at home with similar symptoms. Plan: Labs, EKG, viral swabs Medical Decision Making Lab Data 01/01/24 18:27 01/01/24 18:27 Labs: Lab Results 01/01/24 Range/Units 18:27 WBC 5.3 (4.8-10.8) X10*3/uL RBC 4.37 (4.20-5.50) X10*6/uL Hgb 11.5 L (12.0-16.0) g/dl Hct 35.7 L (37.0-47.0) % MCV 81.7 (80.0-98.0) fL MCH 26.3 L (27.0-33.0) pg MCHC 32.2 (31.0-35.0) g/dl RDW 15.1 (11.0-16.0) % Plt Count 260 (160-400) X10*3/uL MPV 10.3 (9.4-12.3) fL Immature Gran % (Auto) 0.4 (0.0-0.4) % Neut % (Auto) 67.8 (45-73) % Lymph % (Auto) 19.0 L (20-40) % [place] % (Auto) 11.8 H (2-11) % Eos % (Auto) 0.6 (0-4) % Baso % (Auto) 0.4 (0-2) % Lymph # (Auto) 1.0 L (1.2-4.9) X10*3/uL [place] # (Auto) 0.6 (0.1-1.2) X10*3/uL Eos # (Auto) 0.0 (0.0-0.4) X10*3/uL Baso # (Auto) 0.0 (0.0-0.2) X10*3/uL Abs Immat Gran (auto) 0.02 (0.00-0.03) X10*3/uL Absolute Neuts (auto) 3.6 (2.0-8.3) x10*3/uL Absolute Nucleated RBC 0.000 (0.0-0.012) X10*3/uL Nucleated RBC % (auto) 0.0 (0.0-0.2) /100WBC Sodium 141 (135-145) mmol/L Potassium 3.4 (3.3-5.1) mmol/L Chloride 113 H (96-108) mmol/L Carbon Dioxide 22 (22-29) mmol/L Anion Gap 9 L (12-20) BUN 12 (9-16) mg/dL Creatinine 0.70 (0.5-1.4) mg/dL Estim Creat Clear Calc 84.6 Estimated GFR > 60 Random Glucose 89 (60-115) mg/dL Calcium 8.3 L (8.4-10.2) mg/dL Magnesium 2.0 (1.6-2.6) mg/dL Total Bilirubin 0.6 (0.0-1.0) mg/dL Direct Bilirubin 0.2 (0.0-0.5) mg/dL AST 21 (5-31) U/L ALT 17 (0-31) U/L Alkaline Phosphatase 76 (39-117) U/L Troponin I High Sens < 2.7 (<3.5-17.0) ng/L Total Protein 6.3 L (6.5-8.0) g/dL Albumin 3.6 (3.5-5.0) g/dL Lipase 30 (8-78) U/L Influenza Type A (PCR) NEGATIVE (Negative) Influenza Type B (PCR) NEGATIVE (Negative) RSV RNA Qual (PCR) NEGATIVE (Negative) SARS-CoV-2 RNA (RT-PCR) NEGATIVE (Negative) Discharge Plan Discharge Clinical Impression: Gastroenteritis Patient Disposition: Home, Self-Care Prescriptions: No Action acetaminophen 325 mg Tablet 650 mg PO Q6H PRN (Reason: Pain) ibuprofen 600 mg tablet 600 mg PO Q8H PRN (Reason: pain) Qty: 20 0RF ferrous sulfate 325 mg (65 mg iron) tablet,delayed release (DR/EC) 325 mg PO DAILY albuterol sulfate [ProAir HFA] 90 mcg/actuation HFA aerosol inhaler 1 inh inhalation QID PRN (Reason: shortness of breath or wheezing) 30 Days Qty: 8.5 5RF Creon 24,000-76,000 -120,000 unit capsule,delayed release(DR/EC) 1 cap PO QID Qty: 120 5RF Rx Instructions: administer with meals and/or snacks esomeprazole magnesium [Nexium] 40 mg capsule,delayed release(DR/EC) 40 mg PO DAILY Qty: 90 5RF polyethylene glycol 3350 [Miralax] 17 gram/dose powder 17 g PO DAILY Qty: 510 2RF Discharge Date/Time: 01/02/24 06:00
--- NOTE | 2024-01-01 18:08 | ECG_ITS ---
Test Reason : weakness Blood Pressure : / mmHG Vent. Rate : 060 BPM Atrial Rate : 060 BPM P-R Int : 146 ms QRS Dur : 084 ms QT Int : 394 ms P-R-T Axes : 038 017 025 degrees QTc Int : 394 ms Normal sinus rhythm Normal ECG When compared with ECG of 15-FEB-2022 17:27, No significant change was found Referred By: Kathy Blackwood Electronically Signed By:Manav Mckeon
[2024-01-01 18:32] LABS: MANUAL DIFF FLAG NO
[2024-01-01 18:38] LABS: Basophils Percent Auto 0.4 % (0-2); Eosinophils Percent Auto 0.6 % (0-4); Hematocrit 35.7 % (37.0-47.0); Hemoglobin 11.5 g/dl (12.0-16.0); Imm Gran Abs Auto 0.02 X10*3/uL (0.00-0.03); Imm Gran Pct Auto 0.4 % (0.0-0.4); Mean Corpuscular HGB Conc 32.2 g/dl (31.0-35.0); Mean Corpuscular Hemoglobin 26.3 pg (27.0-33.0); Mean Corpuscular Volume 81.7 fL (80.0-98.0); Mean Platelet Volume 10.3 fL (9.4-12.3); Monocytes Absolute Auto 0.6 X10*3/uL (0.1-1.2); Monocytes Percent Auto 11.8 % (2-11); Neutrophils Absolute Auto 3.6 x10*3/uL (2.0-8.3); Neutrophils Percent Auto 67.8 % (45-73); Platelet Count 260 X10*3/uL (160-400); Red Blood Count 4.37 X10*6/uL (4.20-5.50); Red Cell Distribution Width 15.1 % (11.0-16.0); White Blood Count 5.3 X10*3/uL (4.8-10.8)
[2024-01-01 18:52] LABS: Alanine Aminotransferase 17 U/L (0-31); Albumin Level 3.6 g/dL (3.5-5.0); Alkaline Phosphatase 76 U/L (39-117); Anion Gap 9 (12-20); Aspartate Amino Transferase 21 U/L (5-31); Bilirubin Direct 0.2 mg/dL (0.0-0.5); Bilirubin Total 0.6 mg/dL (0.0-1.0); Blood Urea Nitrogen 12 mg/dL (9-16); Calcium 8.3 mg/dL (8.4-10.2); Carbon Dioxide 22 mmol/L (22-29); Chloride 113 mmol/L (96-108); Creatinine Clr Calc Pharmacy 84.6; Estimated Glomerular Filt Rate > 60; Glucose Random 89 mg/dL (60-115); Lipase 30 U/L (8-78); Potassium 3.4 mmol/L (3.3-5.1); Sodium 141 mmol/L (135-145); Total Protein 6.3 g/dL (6.5-8.0)
[2024-01-01 19:02] LABS: Troponin-I High Sensitivity < 2.7 ng/L (<3.5-17.0)
[2024-01-01 19:21] LABS: Influenza A PCR NEGATIVE (Negative); Influenza B PCR NEGATIVE (Negative); Resp Syncy Virus RNA Qual PCR NEGATIVE (Negative); SARS COV2 PCR INHOUSE NEGATIVE (Negative)
[2024-01-01 23:28] VITALS: BP 140/89; PULSE 72; RESP 16; TEMP 36.9; O2SAT 98
[2024-01-02 05:59] VITALS: BP 145/85; PULSE 67; RESP 16; TEMP 36.8; O2SAT 98
== END 2024-01-02 06:00 | disposition home or self-care (01) ==
PROVIDERS: Physician Assistant Medical; Emergency Provider Emergency Medicine; PCP Internal Medicine
DX: K52.9 Noninfective gastroenteritis and colitis, unspecified (principal); R10.9 Unspecified abdominal pain; R11.2 Nausea with vomiting, unspecified; R53.1 Weakness; Z11.52 Encounter for screening for COVID-19; Z20.828 Contact with and (suspected) exposure to other viral communicable diseases
CPT/HCPCS: 0241U; 80048; 80076; 83690; 83735; 84484; 85025; 93005; 99283

== ENCOUNTER → 2024-01-01 18:08 | Outpatient (BNV) | payer OTHER, SELFPAY | PROVIDERS: Emergency Provider Emergency Medicine; PCP Internal Medicine; Visit Provider Internal Medicine Cardiovascular Disease | DX: R53.1 Weakness (principal) | CPT/HCPCS: 93010 ==

== ENCOUNTER 2024-02-25 10:10 | Outpatient (AMB) | payer OTHER, SELFPAY ==
[2024-02-25 10:13] VITALS: BP 130/90; PULSE 78; O2SAT 100; BMI 28.7
--- NOTE | 2024-02-25 10:13 | MHC.PC.OV ---
Vital Signs 02/25/24 10:13 Height 5 ft 1 in Weight 152 lb BMI 28.7 BP 130/90 H Blood Pressure Location Lt brachial Position Sitting Pulse 78 Pulse Source Pulse Oximeter Pulse Oximetry (%) 100 Oxygen Delivery Method Room Air Intake Visit Reasons: pe Intake Note: Patient is here today for a physical. 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 Allergies No Known Allergies [No Known Allergies*] Allergy (Verified 02/25/24 12:22) Medication List - Last Reconciled 02/25/24 by Ronny Lan MD acetaminophen 650 mg PO Q6H PRN albuterol sulfate 90 mcg/actuation (ProAir HFA) 1 inh inhalation QID PRN 30 days esomeprazole magnesium (Nexium) 40 mg PO DAILY ferrous sulfate 325 mg PO DAILY ibuprofen 600 mg PO Q8H PRN ogpnjr-ysfmoamg-fqpqxow 24,000-76,000 -120,000 unit (Creon) 1 cap PO QID polyethylene glycol 3350 (Miralax) 17 grams PO DAILY Tobacco use date assessed: 02/25/24 Dental Screening Dental Screen Date: 10/21/23 Did you have a dental visit in the last 12 months?: Yes Did you have a dental problem in the last 6 months where you did not have access to dental care?: No Was dental information given to patient?: Patient has dentist HPI pe HPI Details Patient comes in today for her annual physical examination She reports feeling slightly dizzy at times lately but otherwise feels okay She denies any headaches Denies any chest pains, no SOB No nausea/vomiting, no abdominal pain No change in bowel habits noted She denies any acute urinary symptoms Relates that she went to the ER back in late December 2023 for some vomiting and diarrhea but her GI symptoms have all cleared up since She had her screening colonoscopy done last year in 01/2023 - was advised that her colonoscopy was normal and her next colonoscopy will be due in 10 years Her annual pap smear and lock assembler exam was last done in 01/2023 and her next appt with Dr. Barber is in March 2024 Her annual mammogram was last done in 08/2023 [facility] Medical History (Updated 02/25/24 @ 12:41 by Ronny Lan MD) Constipation GERD without esophagitis Gastritis Asthma Left sided abdominal pain Overweight (BMI 25.0-29.9) Abdominal pain ZHOU positive Varicose veins of bilateral lower extremities with pain Surgical History (Updated 02/25/24 @ 12:29 by Ronny Lan MD) History of esophagogastroduodenoscopy (EGD) Hx of colonoscopy Hx of laparoscopy Status post laser ablation of incompetent vein H/O tubal ligation Hx of cholecystectomy (~2014) H/O gastric bypass (~2018) Family History Father HTN (hypertension) Diabetes mellitus Mother HTN (hypertension) Diabetes mellitus Asthma Brother No problems noted. Brother No problems noted. Brother No problems noted. Brother No problems noted. Sister No problems noted. Daughter No problems noted. Son No problems noted. Son No problems noted. Paternal Aunt Breast cancer Family/Other Colon cancer Maternal Aunt Ovarian cancer Social History Household Members: Spouse Housing: House Do you presently have visiting nurse or other home services: No Alcohol intake: never Patient Tobacco Use Status: Never used Tobacco Second Hand Smoke Exposure: No service: No Current occupational status: employed Cognitive needs: No Hearing needs: No Vision needs: No Female Reproductive History Menstrual Age of Menarche: 14 Questionnaire PHQ-9 Over the last 2 weeks, how often have you been bothered by any of the following problems? 1. Little interest or pleasure in doing things: not at all 2. Feeling down, depressed, or hopeless: not at all 3. Trouble falling or staying asleep, or sleeping too much: not at all 4. Feeling tired or having little energy: not at all 5. Poor appetite or overeating: not at all 6. Feeling bad about yourself - or that you are a failure or have let yourself or your family down: not at all 7. Trouble concentrating on things, such as reading the newspaper or watching television: not at all 8. Moving or speaking so slowly that other people could have noticed. Or the opposite - being so fidgety or restless that you have been moving around a lot more than usual: not at all 9. Thoughts that you would be better off or of hurting yourself in some way: not at all Total score: 0 Depression Screening Interpretation: Negative Depression Screening Done: Yes 07803 - PHQ-9 Billing: Yes Source: Developed by Drs. Merritt Vargas, Natan Lara and colleagues, with an educational ludmila from [employer]. Thrive Questionnaire Date Thrive assessed: 02/25/24 I am a: Patient What is your living situation today?: I have a steady place to live Within the past 12 months, did the food you bought not last and you didn't have the money to get more?: Never true Within the past 12 months, did you worry whether your food would run out before you got money to buy more?: Never true Do you have trouble paying for medicines?: No Do you have trouble getting transportation to medical appointments?: No Do you have trouble paying your heating and electricity bill?: No Do you have trouble taking care of your child, family member or friend?: No Do you have trouble with day-to-day activities such as bathing, preparing meals, shopping, managing finances, etc.?: No Are you currently unemployed and looking for a job?: No Are you interested in more education?: No Please select the resources that you would like help with: None Currently or been in a relationship where the following occur: no concerns reported THRIVE Score: 0 AUDIT C Alcohol Use Questionnaire (AUDIT-C) 1. How often do you have a drink containing alcohol?: Never 3. How often do you have six or more drinks on one occasion?: Never Total Score: 0 Score Reviewed/Action Taken: Yes LUISITO-7 AMB Questionnaire LUISITO-7 Date LUISITO - 7 assessed: 02/25/24 Feeling nervous, anxious, or on edge: 0 = Not at all Not being able to stop or control worryin = Not at all Worrying too much about different things: 0 = Not at all Trouble relaxin = Not at all Being so restless that it is hard to sit still: 0 = Not at all Becoming easily annoyed or irritable: 0 = Not at all Feeling afraid as if something awful might happen: 0 = Not at all Total LUISITO-7 score (0-4 normal; 5-9 mild; 10-14 moderate; 15-21 severe): 0 Source: Developed by Nicole Connolly Kurt Kroenke and colleagues, with an educational ludmila from [employer]. LUISITO-7 Assessment Billing LUISITO-7 Assessment Tool: LUISITO-7 Assessment 85180 Review of Systems Const Denies chills, Denies fatigue, Denies fever(s), Denies headache(s) and Denies malaise Eyes Denies blurry vision, Denies change in vision, Denies irritation and Denies itchy eyes ENT Denies dysphagia, Reports dizziness (at times lately), Denies otalgia, Denies headache(s), Denies nasal congestion, Denies neck pain, Denies odynophagia, Denies sinus pain and Denies sore throat Card Denies chest pain, Denies rapid heart rate, Denies irregular heart rhythm, Denies palpitations and Denies dyspnea Resp Denies chest congestion, Denies cough, Denies dyspnea and Denies wheezing GI Denies abdominal pain, Denies bloating, Denies constipation, Denies dysphagia, Denies heartburn, Denies diarrhea, Denies nausea, Denies odynophagia and Denies vomiting Denies hematuria, Denies urinary frequency, Denies dysuria, Denies urinary incontinence and Denies urinary urgency Musc Denies back pain, Denies arthralgias, Denies joint swelling, Denies muscle weakness and Denies neck pain Skin/Breast Denies breast pain, Denies breast mass, Denies change in pigmentation, Denies lesions, Denies rash and Denies unusual bruising Neuro Reports dizziness (at times lately), Denies headache(s) and Denies paresthesias Psych Denies anxiety and Denies depression Endo Denies fatigue and Denies palpitations Efrem/Lymph Denies easy bruising Aller/Immun Denies itchy eyes and Denies wheezing Physical exam (Primary Care) Vital Signs: Last Vital Signs Pulse 78 02/25/24 10:13 BP 130/90 H 02/25/24 10:13 Pulse Ox 100 02/25/24 10:13 Oxygen Delivery Method Room Air 02/25/24 10:13 BMI result Body Mass Index 28.7 Tobacco/Smoking Status: Tobacco use Status Tobacco use date assessed 02/25/24 02/25/24 10:15 Patient Tobacco Use Status Never used Tobacco 02/25/24 10:15 PHQ-9: PHQ-9 Score PHQ-9: Total score 0 02/25/24 10:15 Depression Screening Interpretation: Negative Thrive Assessment: Date of Thrive Assessment Date Thrive assessed 10/21/23 02/25/24 10:15 Currently or been in a relationship where the following occur: no concerns reported Const General: no acute distress, alert and awake Orientation/consciousness: patient oriented x3 HENMT Head: Yes normocephalic and Yes atraumatic Ears: external ears normal, TM's normal bilaterally and EAC's normal General nose exam: No nasal discharge present Face and sinus: Yes normal facial exam and Yes sinuses nontender Teeth and gingiva: dentition normal Throat: Yes posterior oropharynx normal and Yes tonsils normal (no TP congestion) Eyes Eyelids: Yes eyelids normal Conjunctivae: conjunctivae normal Pupils: Equal, round and reactive pupils present EOM: EOMs intact bilaterally Neck Neck: Yes no lymphadenopathy and Yes supple Thyroid: Thyroid normal Resp Auscultation: clear to auscultation bilaterally, no rales and no wheezes Cardio Rate: regular rate Rhythm: regular rhythm Heart sounds: no murmurs GI Palpation (GI): Soft to palpation, nontender and No hepatosplenomegaly present Auscultation: normal bowel sounds General: Yes no CVA tenderness Back/Spine/Pelvis Back: no CVA tenderness Thoracic/Lumbar Spine: thoracic and lumbar spine normal to inspection Skin Lesions: no lesions Rashes: no rashes Neuro General: patient oriented x3, moves all extremities, no focal motor deficits and CN's II-XI intact bilaterally Cranial nerves: Yes Equal, round and reactive pupils present Cognition (Neuro): normal cognition Gait exam (Neuro): Normal gait present Extrem General: Yes no clubbing, cyanosis or edema Assessment and Plan Assessment & Plan (1) Annual physical exam: Code(s): Z00.00 - Encounter for general adult medical examination without abnormal findings Plan: Check labs She is up-to-date with all of her cancer screenings (2) Gastritis: Code(s): K29.70 - Gastritis, unspecified, without bleeding Qualifiers: Gastritis type: superficial Chronicity: chronic Gastritis bleeding: without bleeding Qualified Code(s): K29.30 - Chronic superficial gastritis without bleeding Plan: EGD done back in January 2023 revealed (+) changes of moderate chronic active gastritis Patient states that symptoms have improved significantly with her current Rx Continue Nexium 40 mg QD Follow up with GI as scheduled (3) Elevated blood pressure reading without diagnosis of hypertension: Code(s): R03.0 - Elevated blood-pressure reading, without diagnosis of hypertension Plan: Reinforced low sodium diet Patient is advised that her blood pressure has been consistently elevated during her last few office visits Advised normal systolic BP reading is 120 mm or less As she has (+) family Hx of HTN, have advised her that she also likely has HTN and have recommended that she try to check and monitor her BP at home and if her blood pressure numbers are also consistently higher than recommended when she checks her BP at home, then we will consider starting her on Rx for her blood pressure (4) Asthma: Code(s): J45.909 - Unspecified asthma, uncomplicated Qualifiers: Asthma severity: unspecified severity Asthma persistence: intermittent Asthma complication type: uncomplicated Qualified Code(s): J45.20 - Mild intermittent asthma, uncomplicated Plan: Stable; continue Albuterol HFA 2 inhalations Q 6 hours PRN (5) Anemia: Code(s): D64.9 - Anemia, unspecified Qualifiers: Anemia type: iron deficiency Iron deficiency anemia type: chronic blood loss Qualified Code(s): D50.0 - Iron deficiency anemia secondary to blood loss (chronic) Plan: Was most likely due to a combination of iron-deficiency and her heavy menstrual bleeding She was still mildly anemic when she had labs done at the ER in December 2023; will recheck her CBC again for follow up Continue Ferrous Sulfate 325 mg QD (6) Dizziness: Code(s): R42 - Dizziness and giddiness Plan: Advised that her dizziness may be due to her elevated BP; otherwise, etiology is unclear at this time Will send her for some labs GLEN for further evaluation, including her CBC and TSH (7) Constipation: Code(s): K59.00 - Constipation, unspecified Qualifiers: Constipation type: unspecified constipation type Qualified Code(s): K59.00 - Constipation, unspecified Plan: She is advised again that her oral iron supplements are likely contributing to her constipation and that she should be taking her Miralax 17 gm DAILY for it to be effective She can still take her OTC stool softeners PRN for symptomatic relief and is again encouraged to increase her oral fluids and dietary fiber intake (8) Overweight (BMI 25.0-29.9): Comment: (+) Hx of gastric bypass in 2018 Code(s): E66.3 - Overweight Plan: Reinforced diet/exercise as tolerated/lose weight S/p gastric bypass surgery in 2018 - surgery was done in [place], [place] Plan Follow up in 6 months Orders: Orders Complete Blood Count Auto Diff Today D64.9 - Anemia, unspecified, Z00.00 - Encounter for general adult medical examination without abnormal findings Lipid Panel Today E78.00 - Pure hypercholesterolemia, unspecified, Z00.00 - Encounter for general adult medical examination without abnormal findings TSH reflex Free T4 Today E78.00 - Pure hypercholesterolemia, unspecified, Z00.00 - Encounter for general adult medical examination without abnormal findings UA CC w/rflx Micro + Cult Today R30.0 - Dysuria, Z00.00 - Encounter for general adult medical examination without abnormal findings Vitamin D 25-OH Total Today E55.9 - Vitamin D deficiency, unspecified, Z00.00 - Encounter for general adult medical examination without abnormal findings IRON PROFILE Today D50.9 - Iron deficiency anemia, unspecified, Z00.00 - Encounter for general adult medical examination without abnormal findings Comprehensive [place]. Panel Fast Today E78.00 - Pure hypercholesterolemia, unspecified, Z00.00 - Encounter for general adult medical examination without abnormal findings Vitamin B12 and Folate Today E53.8 - Deficiency of other specified B group vitamins, Z00.00 - Encounter for general adult medical examination without abnormal findings Coding Level of Care Code Est Pt Prev Care 40-64y(00555) Diagnoses Annual physical exam Z00.00 Chronic superficial gastritis without bleeding K29.30 Gastritis type: superficial Chronicity: chronic Gastritis bleeding: without bleeding Elevated blood pressure reading without diagnosis of hypertension R03.0 Intermittent asthma without complication, unspecified asthma severity J45.20 Asthma severity: unspecified severity Asthma persistence: intermittent Asthma complication type: uncomplicated Iron deficiency anemia due to chronic blood loss D50.0 Anemia type: iron deficiency Iron deficiency anemia type: chronic blood loss Dizziness R42 Constipation, unspecified constipation type K59.00 Constipation type: unspecified constipation type Overweight (BMI 25.0-29.9) E66.3 Additional Codes LUISITO-7 Assessment Billing - LUISITO-7 Assessment Tool: LUISITO-7 Assessment 21771 ([id number])
== END 2024-02-25 13:28 | disposition home or self-care (01) ==
PROVIDERS: PCP Internal Medicine; Visit Provider Internal Medicine
DX: Z00.00 Encounter for general adult medical examination without abnormal findings (principal); K29.30 Chronic superficial gastritis without bleeding; R03.0 Elevated blood-pressure reading, without diagnosis of hypertension; J45.20 Mild intermittent asthma, uncomplicated; D50.0 Iron deficiency anemia secondary to blood loss (chronic); R42 Dizziness and giddiness; K59.00 Constipation, unspecified; E66.3 Overweight
CPT/HCPCS: 99396

== ENCOUNTER 2024-03-03 07:44 | Outpatient (REF) | payer OTHER, SELFPAY ==
[2024-03-03 07:59] LABS: MANUAL DIFF FLAG NO
[2024-03-03 08:04] LABS: Basophils Absolute Auto 0.1 X10*3/uL (0.0-0.2); Basophils Percent Auto 0.8 % (0-2); Eosinophils Percent Auto 0.6 % (0-4); Hematocrit 37.1 % (37.0-47.0); Hemoglobin 11.9 g/dl (12.0-16.0); Imm Gran Abs Auto 0.01 X10*3/uL (0.00-0.03); Imm Gran Pct Auto 0.2 % (0.0-0.4); Lymphocytes Absolute Auto 2.2 X10*3/uL (1.2-4.9); Lymphocytes Percent Auto 32.5 % (20-40); Mean Corpuscular HGB Conc 32.1 g/dl (31.0-35.0); Mean Corpuscular Hemoglobin 25.4 pg (27.0-33.0); Mean Corpuscular Volume 79.1 fL (80.0-98.0); Mean Platelet Volume 10.3 fL (9.4-12.3); Monocytes Absolute Auto 0.5 X10*3/uL (0.1-1.2); Monocytes Percent Auto 7.6 % (2-11); Neutrophils Absolute Auto 3.9 x10*3/uL (2.0-8.3); Neutrophils Percent Auto 58.3 % (45-73); Platelet Count 228 X10*3/uL (160-400); Red Blood Count 4.69 X10*6/uL (4.20-5.50); Red Cell Distribution Width 16.5 % (11.0-16.0); White Blood Count 6.6 X10*3/uL (4.8-10.8)
[2024-03-03 08:24] LABS: Alanine Aminotransferase 17 U/L (0-31); Albumin Level 3.7 g/dL (3.5-5.0); Alkaline Phosphatase 66 U/L (39-117); Anion Gap 11 (12-20); Aspartate Amino Transferase 20 U/L (5-31); Bilirubin Total 0.6 mg/dL (0.0-1.0); Blood Urea Nitrogen 14 mg/dL (9-16); Calcium 8.8 mg/dL (8.4-10.2); Carbon Dioxide 25 mmol/L (22-29); Chloride 110 mmol/L (96-108); Cholesterol 166 mg/dL (<200); Estimated Glomerular Filt Rate > 60; Glucose Fasting 93 mg/dL (60-99); HDL Cholesterol 64 mg/dL (>40); Iron 36 mcg/dL (30-160); LDL Cholesterol Calculated 92 mg/dL (<100); Percent Iron Saturation 11 % (15-50); Sodium 142 mmol/L (135-145); Total Iron Binding Capacity 335 mcg/dL (228-428); Total Protein 6.5 g/dL (6.5-8.0); Triglycerides 54 mg/dL (<150); Unsaturated Iron Binding 299 ug/dL
[2024-03-03 08:39] LABS: TSH reflex Free T4 1.63 uIU/mL (0.32-4.0); Vitamin D 25-OH Total 17.6 ng/mL (>30)
[2024-03-03 08:53] LABS: Appearance Urine Clear; Color Urine Yellow; Glucose Urine UA Negative (Negative); Leukocyte Esterase Urine Negative (Negative); Nitrite Urine Negative (Negative); PH 5.5 (5.0-9.0); Urine Blood Negative (Negative); Urine Ketones Negative (Negative); Urine Protein Negative (Neg-Trace)
[2024-03-03 09:06] LABS: Vitamin B12 410 pg/mL (200-900)
== END 2024-03-03 07:45 | disposition home or self-care (01) ==
LOC: HO.LAB 07:44
PROVIDERS: PCP Internal Medicine; Visit Provider Internal Medicine
DX: Z00.00 Encounter for general adult medical examination without abnormal findings (principal); E78.00 Pure hypercholesterolemia, unspecified; R30.0 Dysuria; E55.9 Vitamin D deficiency, unspecified; D50.9 Iron deficiency anemia, unspecified; E53.8 Deficiency of other specified B group vitamins
CPT/HCPCS: 36415; 80053; 80061; 81003; 82306; 82607; 82746; 83540; 84443; 85025

== ENCOUNTER 2024-04-02 10:19 | Outpatient (AMB) | payer OTHER, SELFPAY ==
--- OUTSIDE RECORDS SUMMARY | 2024-04-02 10:20 | XMS_ITS | Continuity of Care Document ---
Author Organization [facility] ter Address [address] [place] [id number]- Care Team Providers Care Promotional Representative Name Role Phone Ronny Lan MD Primary Care Physician [place] [facility] [place]): [place]23 - 04/25/[address] [address]- Discharge Disposition: A-D/C Home Attending Physician: Herber Lundy MD Admitting Physician: Herber Lundy MD Referring Physician: Herber Lundy MD Allergies, Adverse Reactions, Alerts No Known Allergies Medications Creon 3000 units oral delayed release capsule 1 capsule, By Mouth, 4 times a day, # 120 capsule, 0 Refills, Maintenance, 04/22/23 15:35:00 EDT, CR Capsule, Partial fill upon patient request if the prescription is for a schedule II opioid drug. Start Date: 04/22/23 Status: Ordered meloxicam 5 mg oral capsule 1 capsule = 5 mg, By Mouth, Daily, # 30 capsule, 0 Refills, Maintenance, 04/22/23 15:40:00 EDT, Capsule, Partial fill upon patient request if the prescription is for a schedule II opioid drug. Start Date: 04/22/23 Status: Ordered Multivitamin Tablet 1 tablet, By Mouth, Daily, 0 Refills, Maintenance, 04/22/23 15:38:00 EDT, Tablet, Partial fill uponpatient request if the prescription is for a schedule II opioid drug. Start Date: 04/22/23 Status: Ordered Oxycodone 5mg Oral Tablet (PACU ONLY) 5 mg, Tablet, By Mouth, Once, in PACU ONLY, PRN for Pain , Moderate, Routine, 04/25/23 12:49:00 EDT Start Date: 04/25/23 Stop Date: 04/25/23 Status: Completed Vitamin B12 50 mcg oral tablet 1 tablet = 50 mcg, By Mouth, Daily, # 30 tablet, 0 Refills, Maintenance, 04/22/23 15:39:00 EDT, Tablet, Partial fill upon patient request if the prescription is for a schedule II opioid drug. Start Date: 04/22/23 Status: Ordered Vitamin D3 1000 intl units oral capsule 1 capsule = 25 mcg, By Mouth, Daily, # 100 capsule, 0 Refills, Maintenance, 04/22/23 15:38:00 EDT, Capsule, Partial fill upon patient request if the prescription is for a schedule II opioid drug. Start Date: 04/22/23 Status: Ordered zinc (as gluconate) 50 mg oral tablet 1 tablet = 50 mg, By Mouth, Daily, # 30 tablet, 0 Refills, Maintenance, 04/22/23 15:39:00 EDT, Tablet, Partial fill upon patient request if the prescription is for a schedule II opioid drug. Start Date: 04/22/23 Status: Ordered Vital Signs Most recent to oldest [Reference Range]: 1 2 3 Height 155 cm (04/25/23 10:16 AM) 155 cm (04/22/23 3:43 PM) Weight 67.4 kg (04/25/23 10:16 AM) 66 kg (04/22/23 3:43 PM) Oxygen Saturation [94-100 %] 99 % (04/25/23 2:00 PM) 99 % (04/25/23 1:45 PM) 100 % (04/25/23 1:30 PM) Pulse Rate [55-90 bpm] 48 bpm *L* (04/25/23 10:16 AM) Body Mass Index [18.5-24.99 kg/m2] 28.05 kg/m2 *H* (04/25/23 10:16 AM) 27.47 kg/m2 *H* (04/22/23 3:43 PM) Blood Pressure [90-138/55-84 mm Hg] 157/91mm Hg *H* (04/25/23 2:00 PM) 153/88mm Hg *H* (04/25/23 1:45 PM) 155/85mm Hg *H* (04/25/23 1:30 PM) Respiratory Rate [16-30 br/min] 25 br/min (04/25/23 2:03 PM) 18 br/min (04/25/23 1:45 PM) 19 br/min (04/25/23 1:30 PM) Temperature [96.8-100.4 DegF] 97.2 DegF (04/25/23 1:30 PM) 97.4 DegF (04/25/23 12:30 PM) 98.7 DegF (04/25/23 10:16 AM) Liters per Minute 5 L/min (04/25/23 12:45 PM) 5 L/min (04/25/23 12:30 PM) Mode of Delivery (Oxygen) Room air (04/25/23 2:15 PM) Room air (04/25/23 2:00 PM) Room air (04/25/23 1:45 PM) Blood pressure sites Arm, right (04/25/23 2:00 PM) Arm, right (04/25/23 1:45 PM) Arm, right (04/25/23 1:30 PM) Temperature Route Temporal (04/25/23 1:30 PM) Temporal (04/25/23 12:30 PM) Temporal (04/25/23 10:16 AM) Dry Weight 66 kg (04/22/23 3:43 PM) Weight Obtained Via Standing scale (04/25/23 10:16 AM) Patient/family stated (04/22/23 3:43 PM) Dry Weight Obtained Via Patient/family s tated (04/22/23 3:43 PM) Note * Regina Keita RN: PERFORM Event Display: Discharge/Transfer Note Hospital Authored Date: [id number] Nursing Discharge Note Entered On: 04/25/2023 14:27 EDT Performed On: 04/25/2023 14:27 EDT by Regina Keita RN Nursing Discharge Note 2 Discharge Time : 04/25/2023 14:25 EDT Discharge Level of Care at Discharge : Home/Usp/Foster Care Patient Left Unit Via : Wheelchair Patient Accompanied Off Unit with : Responsible adult DC Instructions Provided & Signed by Pt : Yes Patient Understands D/C Instructions : Yes Verbalized Understanding of D/C Plan By : Patient Patient Instructions Discharge Signed : Yes Did Pt have Specialty Bed or Wound Vac : No Regina Keita RN - 04/25/2023 14:27 EDT * Regina Keita RN: PERFORM Event Display: Patient Education/Instruction Authored Date: Inpatient Adult Discharge Instructions [address] [address] Name: VERNON DOMINGUEZ : 1970 Visit: 04/25/2023 08:45:00 Current Date: 04/25/2023 13:34 Account: [id number] Inpatient Adult Discharge Instructions We would like to thank you for allowing us to assist you with your healthcare needs. The following includes patient education materials and information regarding your injury/illness. Our entire staffstrives to provide an excellent experience for our patients and their families. PLEASE ENSURE YOU FOLLOW-UP PER THE INSTRUCTIONS BELOW! ?? YOUR OPINION IS IMPORTANT TO US! Please complete the survey you may receive by mail or email. Your feedback will be used to make improvements to the healthcare experiences of our patients and their families. Surveys are administered by [email or web address] ?? If further treatment with your primary care physician or another doctor is recommended, it is important for you to keep the appointment. Call your primary care physician or return to the Emergency Department immediately if your condition worsens, fails to improve, or new symptoms develop. If you need to find a doctor, you can call [facility] for a referral at [phone] or toll free at [phone] or log in to [email or web address].. ?? You can view and manage your care through the patient portal or by using a health care debra of your choosing. [employer] is a website that allows you to securely view your medical information including your hospital discharge summary, office visit summaries, medications and follow-up visits. You can also request appointments, renew medications, and request access to your medical information using a health care debra of your choosing, or just ask a question. You can enroll at [email or web address] or register during your next office visit. You have been discharged from [facility], Patient Care Unit: [facility]. If you have any questions regarding these instructions after you leave, please call us and we will be happy to assist you. [facility] Your Care Team Attending Physician Nikkie MCLEAN, Herber Evans Discharging Providers Nikkie MCLEAN, Herber Evans Reason for Admission SUIPERNUMERARY TEETH EXTRACTIONS DS CS Tests Performed Below is a partial list of the tests performed during your hospitalization. You may have had other tests and procedures not included in this list. Please discuss all test results with your provider. Primary Care Provider Riky MCLEAN, Ronny Garcia Advance Directive Health Care Proxy on File No Discharge Vitals Temperature: 97.2 DegF Height: 155 cm Pulse Rate:??48 bpm??Low Weight: 67.4 kg Respiratory Rate: 19 br/min Body Mass Index:??28.05 kg/m2??High Systolic Blood Pressure:??155 mm Hg??High Body surface area: 1.7 Diastolic Blood Pressure:??85 mm Hg??High ?? Oxygen Saturation: 100 % ?? Studies Pending All tests and labs ordered during this hospital stay have been completed unless listed below. Please discuss all pending results with your provider listed above in these instructions. ?? No incomplete studies found What to do next Instructions From Your Doctor Discharge Orders Instructions from your Care Team See attached MD discharge instruction. Prescriptions have been sent electronically. No smoking or vaping. No straws. Use ice 20min on/20 min off for first 48hrs. ?? You Need to Schedule the Following Appointments Follow Up with??Herber Lundy Where: [address] [place] [address] [address] [facility]illofacial [facility] [place] [address]- Business (1) Follow Up with??Ronny Lan MD When:??In 0 days Where: [address] [place] [address] [address] [place] [address]- Business (1) Discharge Medications VERNON DOMINGUEZ :1970 Visit Date:04/25/2023 Medications: Please continue your medications until treatment is completed or stopped by your provider. Medications not listed below should be discontinued. Discuss any questions related to medications with your provider. What How Much When Instructions Next Dose Unchanged Cholecalciferol (Vitamin D3 1000 intl units oral capsule) 1 capsule Oral Daily Unchanged Cyanocobalamin (Vitamin B12 50 mcg oral tablet) 1 tab(s) Oral Daily Unchanged Meloxicam (meloxicam 5 mg oral capsule) 1 capsule Oral Daily Unchanged Multivitamin (Multivitamin Tablet) 1 tab(s) Oral Daily Unchanged Pancrelipase (Creon 3000 units oral delayed release capsule) 1 capsule Oral 4 times a day Unchanged Zinc Gluconate (zinc (as gluconate) 50 mg oral tablet) 1 tab(s) Oral Daily Test Results Below is a partial list of the most recent Laboratory test results done prior to this discharge. You may have had other tests and procedures not included in this list. Please discuss all test resultswith your provider. Allergies (NKA means No Known Allergies) NKA Problems No qualifying data available Education Materials Below is the list of Educational Leaflet Providered with your Discharge Instructions. Surgery Medical Daystay Surgical Overnight Discharge Instructions?? Valuables and Belongings I fully understand and agree that [facility] accepts no responsibility for all my personal property including clothing, toilet articles, radios, jewelry, dentures, hearing aids, rings, money, or any other property that is in my possession or is brought to me after admission. I understand certain valuables may be placed in a hospital safe for a short period of time. I understand that the hospital is not liable for loss or damage due to accident, fire, or other natural occurrence while said property is in the safe. I accept full responsibility for any personal property that I keep with me, and will not hold the hospital responsible in case of loss or disappearance. I acknowledge that i have been encouraged to send valuables and belongings home. ?? Review of Valuable and Belonging List: With patient Date for Pt to Sign Valuables/Belongings: 04/25/23 10:16:00 ?? Valuables & Belongings ?? Clothes Electronic devices Jewelry Monetary Items Personal devices Miscellaneous Medications (Valuables) Valuables at Bedside Pants, Shirt, Shoes, Undergarments Cell phone ? Valuables Sent Home ? Valuables Sent to Security ? Other Discharge Information ? Pulmonary Rehab Status?? Pulmonary Rehab Discharge Status?? Respiratory Rate: 19 br/min ? Common Emergency Awareness Tips IS IT A STROKE? Act FAST and Check for these signs: FACE Does the face look uneven? ARM Does one arm drift down? SPEECH Does their speech sound strange? TIME Call at any sign of stroke ?? Heart Attack Signs Chest discomfort: Most heart attacks involve discomfort in the center of the chest and lasts more than a few minutes, or goes away and comes back. It can feel like uncomfortable pressure, squeezing, fullness or pain. Discomfort in upper body: Symptoms can include pain or discomfort in one or both arms, back, neck, jaw or stomach. Shortness of breath: With or without discomfort. Other signs: Breaking out in a cold sweat, nausea, or lightheaded. Remember, MINUTES DO MATTER. If you experience any of these heart attack warning signs, call to get immediate medical attention! ?? Smoking can increase your chances of developing chronic health problems and can cause harmful effects to other family members in your house. If you smoke, you are strongly encouraged to quit. Please call [facility] at [phone] or [phone]) or log in to [email or web address] for referrals to smoking cessation programs. ?? 426 Suicide & Crisis Lifeline is available 29/04 if you or someone you know needs to find a reason to keep living. By calling 411 you'll be connected to a skilled, trained counselor at a crisis center in your area. INPATIENT DISCHARGE INSTRUCTIONS SIGNATURE PAGE ANGELICAJOSEPHVERNON Location:[facility] Registration Date and Time:04/25/2023 08:45 EDT Primary Care Physician: Ronny Lan MD, Attending Physician: Nikkie MCLEAN, Herber Evans, I VERNON DOMINGUEZ, have received the above patient education materials/instructions and have verbalized understanding. If ambulance or transport services are being used I further acknowledge being given a choice of service. ?? If you need to contact me, please call me at this number: . Patient/Tile And Marble Setter Name: Patient/Tile And Marble Setter Signature: Relationship to Patient: Witness Name/Signature: Date: * Belén Leblanc RN: PERFORM, SIGN, VERIFY Event Display: Patient Education Handout Authored Date: * Belén Leblanc RN: PERFORM Event Display: Patient Education Leaflets Authored Date: Surgery Medical Daystay Surgical Overnight Discharge Instructions ?? 295 Medical Daystay/Surgical Overnight Discharge Instructions ? Since your coordination and judgment may be altered by medication and/or anesthesia, a responsible adult must drive you home from the hospital. ? If you have received medication for pain or sedation while under our care, you should not drive, operate machinery, drink alcohol, or sign any legal documents for 24 hours.?? You should have someone with you at home tonight. ? Remain at home the day of discharge.?? You may be up and about unless otherwise instructed by your physician. ? You may resume your daily prescription medication schedule.?? Any depressant medication should be avoided for 24 hours unless otherwise instructed by your surgeon or anesthesiologist. ? Call your physician for a follow-up appointment.? If you experience unusual or severe pain not relied by your pain medication, excessive bleedingor drainage, persistent nausea and vomiting, excessive swelling or redness, foul odor from incisionsite or fever over 100.6F, you need to call your physician. ? A follow-up phone call by a nurse will be made the day after your procedure.?? If you have stayed with us over night, you will not be receiving a follow-up phone call. ? Nausea and vomiting are a common side effect of prescription pain medication.?? We recommend that pills are not taken on an empty stomach.?? While taking any prescription pain medication you should not drive or drink alcohol. ? Patient Care team information Care Team Personnel Name: Ronny Lan MD Position: Reference Physician Member Role: PCP Address: Address: [address] [place] [address] [address] [place] [address]-
[2024-04-02 10:22] VITALS: BP 132/84; BMI 28.7
--- NOTE | 2024-04-02 10:22 | MHC.OFFVIS ---
Vital Signs 04/02/24 10:22 Height 5 ft 1 in Weight 152 lb BMI 28.7 BP 132/84 Blood Pressure Location Lt brachial Position Sitting Intake Visit Reasons: co testing Allergies No Known Allergies [No Known Allergies*] Allergy (Verified 04/02/24 10:24) HPI Comments Details: Presenting for annual exam. Complaining of bilateral lower pelvic pain started few months ago. It's intermittent in nature lasting few seconds and occurs 3x/day. it is not associated with constipation, no dysuria, frequency incontinence, no n/v, no feverishness. Last Pap/HPV was ascus HPV positive in 12/27, this was followed by colpo biopsy/ECC which was negative Last Mammogram was BI-RADS 1 in 08/29 Last Colonoscopy was in 01/27, the recommendation was to repeat in 10 years [facility] Medical History Constipation GERD without esophagitis Gastritis Asthma Left sided abdominal pain Overweight (BMI 25.0-29.9) Abdominal pain ZHOU positive Varicose veins of bilateral lower extremities with pain Surgical History History of esophagogastroduodenoscopy (EGD) Hx of colonoscopy Hx of laparoscopy Status post laser ablation of incompetent vein H/O tubal ligation Hx of cholecystectomy (~2014) H/O gastric bypass (~2017) Family History Father HTN (hypertension) Diabetes mellitus Mother HTN (hypertension) Diabetes mellitus Asthma Brother No problems noted. Brother No problems noted. Brother No problems noted. Brother No problems noted. Sister No problems noted. Daughter No problems noted. Son No problems noted. Son No problems noted. Paternal Aunt Breast cancer Family/Other Colon cancer Maternal Aunt Ovarian cancer Social History Household Members: Spouse Housing: House Do you presently have visiting nurse or other home services: No Alcohol intake: never Patient Tobacco Use Status: Never used Tobacco Second Hand Smoke Exposure: No service: No Current occupational status: employed Cognitive needs: No Hearing needs: No Vision needs: No Female Reproductive History Menstrual Age of Menarche: 14 control method: none Date of last pap smear: 12/05/22 History of abnormal pap smear: Yes (2021 HPV+) Date of Mammogram: 08/21/23 History of abnormal mammogram: No Review of Systems Const All systems reviewed & are unremarkable except as noted in HPI and below Card Reports as per HPI Resp Reports as per HPI GI Reports as per HPI and Reports no additional complaints Reports as per HPI Physical Exam Vital Signs: Last Vital Signs BP 132/84 04/02/24 10:22 BMI result Body Mass Index 28.7 Const General: cooperative, healthy appearing and comfortable Chest Chest palpation & inspection: normal inspection of the chest and normal palpation of entire chest wall Breast/axilla inspection: normal inspection of the breasts and normal inspection of the axillae Breast/axilla palpation: normal palpation of the breasts, normal palpation of the axillae and no axillary lymphadenopathy Resp Effort & Inspection: normal respiratory effort Auscultation: clear to auscultation bilaterally Percussion: percussion normal Cardio Palpation: normal PMI Rate: regular rate Rhythm: regular rhythm Heart sounds: no murmurs and no rubs Peripheral pulses: Peripheral pulses 2+ throughout GI Inspection: Yes normal to inspection Palpation (GI): Soft to palpation, nontender, no guarding, not rigid and No hepatosplenomegaly present Percussion: Yes normal to percussion Auscultation: normal bowel sounds Rectal Exam - Female: deferred General: Yes bladder normal to palpation External Female Exam: No lesion Speculum Exam - Vagina: normal appearance of the vagina, normal palpation, normal vaginal discharge and not erythematous Speculum Exam - Cervix: normal appearance of the cervix and normal palpation Bimanual exam- vagina & uterus: normal bimanual exam, normal palpation, uterine size normal, bladder normal to palpation, consistency normal and normal palpation Bimanual Exam- Adnexa, other: normal adnexae, no masses and no tenderness Assessment & Plan Assessment & Plan (1) Well woman exam: Code(s): Z01.419 - Encounter for gynecological examination (general) (routine) without abnormal findings Category: Medical Plan: Co testing done. Counseled the patient about the recommended dietary allowance of 1200 mg of Calcium & 600 IU of vitamin D. Instructions given the patient to schedule her next screening Mammogram in 08/30. The patient was instructed to perform monthly self-breast exams and schedule annual exam in a year. All questions answered and the patient verbalized understanding. (2) Pelvic pain: Code(s): R10.2 - Pelvic and perineal pain Category: Medical Plan: Urine dip and test done in the office were both negative. GC and chlamydia taken and pelvic ultrasound ordered. Discussed with the patient the differential diagnosis of pelvic pain including but not limited to adnexal, uterine masses, pelvic infections (PID), GI the (Irritable bowel syndrome, diverticulitis, others), musculoskeletal, myofascial pain abdominal wall , adhesions, endometriosis, psychological and others causes. Will check results and treat accordingly. All questions answered, the patient verbalized understanding. Instructed the patient to schedule follow-up appointment in 2 weeks Orders: Orders US pelvic and transvaginal Today R10.2 - Pelvic and perineal pain Coding Level of Care Code Est Pt Prev Care 40-64y([address]62) Diagnoses Well woman exam Z01.419 Pelvic pain R10.2
== END 2024-04-02 10:53 | disposition home or self-care (01) ==
LOC: HO.HWS 10:19
PROVIDERS: PCP Internal Medicine; Visit Provider Obstetrics & Gynecology
DX: Z01.419 Encounter for gynecological examination (general) (routine) without abnormal findings (principal); R10.2 Pelvic and perineal pain; Z13.9 Encounter for screening, unspecified; Z32.02 Encounter for pregnancy test, result negative
CPT/HCPCS: 99396

== ENCOUNTER 2024-04-02 10:19 | Outpatient (REF) | payer OTHER, SELFPAY ==
[2024-04-03 14:04] LABS: CT PCR NOT DETECTED (Not Detect.); NG PCR NOT DETECTED (Not Detect.)
[2024-04-08 07:23] LABS: HPV mRNA E6/E7 Not Detected (Not Detected)
== END 2024-04-02 10:20 | disposition home or self-care (01) ==
LOC: HO.LNP 10:19
PROVIDERS: PCP Internal Medicine; Visit Provider Obstetrics & Gynecology
DX: Z01.419 Encounter for gynecological examination (general) (routine) without abnormal findings (principal); R87.610 Atypical squamous cells of undetermined significance on cytologic smear of cervix (ASC-US); R10.2 Pelvic and perineal pain; Z11.3 Encounter for screening for infections with a predominantly sexual mode of transmission
CPT/HCPCS: 81003; 81025; 87491; 87591; 87624; 88175; 99396

== ENCOUNTER 2024-04-24 11:11 | Outpatient (REF) | payer OTHER, SELFPAY ==
--- NOTE | ~2024-04-24 | US_ITS ---
EXAMINATION: US PELVIS CLINICAL INFORMATION: Pelvic and perineal pain COMPARISON: None available. TECHNIQUE: Pelvic ultrasound August 07, 2023 FINDINGS: Uterus: The uterus is anteverted and measures 8.2 x 4.5 x 5.[address] Lower uterine segment fibroid measuring 1.4 x 1.1 x 1.3 cm, previously 0.9 x 0.6 x 1.2 cm. Adnexa: Both ovaries are visualized. There is normal color flow to the adnexa. There is no ovarian torsion. There is no pelvic ascites or fluid collection. Right ovary measures 2.3 x 1.7 x 2 cm. Volume is 4.3 mm. Corpus luteum cyst noted measuring 1.7 x 1.1 x 1.1 cm. Left ovary measures 1.9 x 1.2 x 2.2 cm. Volume is 2.6 mm. US/US pelvic and transvaginal IMPRESSION: Lower uterine segment fibroid measuring 1.4 x 1.1 x 1.3 cm, previously 0.9 x 0.6 x 1.2 cm.
== END 2024-04-24 11:12 | disposition home or self-care (01) ==
LOC: HO.US 11:11
PROVIDERS: PCP Internal Medicine; Visit Provider Obstetrics & Gynecology
DX: R10.2 Pelvic and perineal pain (principal)
CPT/HCPCS: 76830; 76856

== ENCOUNTER 2024-06-03 13:59 | Outpatient (AMB) | payer OTHER, SELFPAY ==
[2024-06-03 14:04] VITALS: BMI 28.3
--- NOTE | 2024-06-03 14:04 | MHC.OFFVIS ---
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 Lower uterine segment fibroid measuring 1.4 x 1.1 x 1.3 cm, previously 0.9 x 0.6 x 1.2 cm. Adnexa: Both ovaries are visualized. There is normal color flow to the adnexa. There is no ovarian torsion. There is no pelvic ascites or fluid collection. Right ovary measures 2.3 x 1.7 x 2 cm. Volume is 4.3 mm. Corpus luteum cyst noted measuring 1.7 x 1.1 x 1.1 cm. Left ovary measures 1.9 x 1.2 x 2.2 cm. Volume is 2.6 mm. [facility] Medical History Constipation GERD without esophagitis Gastritis Asthma Left sided abdominal pain Overweight (BMI 25.0-29.9) Abdominal pain ZHOU positive Varicose veins of bilateral lower extremities with pain Surgical History History of esophagogastroduodenoscopy (EGD) Hx of colonoscopy Hx of laparoscopy Status post laser ablation of incompetent vein H/O tubal ligation Hx of cholecystectomy (~2014) H/O gastric bypass (~2017) Family History Father HTN (hypertension) Diabetes mellitus Mother HTN (hypertension) Diabetes mellitus Asthma Brother No problems noted. Brother No problems noted. Brother No problems noted. Brother No problems noted. Sister No problems noted. Daughter No problems noted. Son No problems noted. Son No problems noted. Paternal Aunt Breast cancer Family/Other Colon cancer Maternal Aunt Ovarian cancer Social History Household Members: Spouse Housing: House Do you presently have visiting nurse or other home services: No Alcohol intake: never Patient Tobacco Use Status: Never used Tobacco Second Hand Smoke Exposure: No service: No Current occupational status: employed Cognitive needs: No Hearing needs: No Vision needs: No Female Reproductive History Menstrual Age of Menarche: 14 Review of Systems Const All systems reviewed & are unremarkable except as noted in HPI and below Reports as per HPI and Reports no additional complaints GI Reports no additional complaints Reports no additional complaints Physical Exam Vital Signs: BMI result Body Mass Index 28.3 Assessment & Plan Assessment & Plan (1) Uterine myoma: Code(s): D25.9 - Leiomyoma of uterus, unspecified Category: Medical Plan: Discussed with the patient the findings on pelvic ultrasound & the risk of myosarcoma; discussed with the patient the options of treatment including expectant management versus hysterectomy; the pros and cons, risks benefits of each approach were discussed with the patient including the fact that in cases of myosarcoma, surgical treatment can lead to early diagnosis and positively affects the prognosis; after further discussion, the patient decided to proceed with expectant management. Will repeat pelvic ultrasound periodically. Instructions given to patient to call in case any of the following occurs: pressure symptoms, abnormal uterine bleeding, pelvic pain; and to schedule a 12 months pelvic ultrasound and a follow-up appointment . All questions answered, the patient verbalized understanding and agreed with the plan . (2) Pelvic pain: Code(s): R10.2 - Pelvic and perineal pain Category: Medical Plan: Discussed with the patient the results of the workup done including negative GC/chlamydia, urine dip, urine test and pelvic ultrasound. Differential diagnosis of powdered metal supervisor causes that have not be ruled out yet include but not limited to endometriosis, pelvic adhesions or others. Recommended for the patient to see her PCP for further workup for non powdered metal supervisor causes; if the all the results are negative and the patient's pelvic pain is persistent, instructions given to patient to call back for further testing. Meanwhile, instructions were given the patient to go to emergency room or call in case of fever above 100.4, heavy vaginal bleeding, persistence or worsening of her pelvic pain. All questions answered, the patient verbalized understanding. Coding Level of Care Code Est Pt Level 3 (70039) Diagnoses Uterine myoma D25.9 Pelvic pain R10.2
== END 2024-06-03 14:15 | disposition home or self-care (01) ==
PROVIDERS: PCP Internal Medicine; Visit Provider Obstetrics & Gynecology
DX: D25.9 Leiomyoma of uterus, unspecified (principal); R10.2 Pelvic and perineal pain
CPT/HCPCS: 99213

== ENCOUNTER → 2024-06-03 13:59 | Outpatient (BNVA) | payer OTHER, SELFPAY | PROVIDERS: PCP Internal Medicine; Visit Provider Obstetrics & Gynecology | DX: D25.9 Leiomyoma of uterus, unspecified (principal); R10.2 Pelvic and perineal pain | CPT/HCPCS: 99212 ==

== ENCOUNTER 2024-07-16 09:10 | Outpatient (AMB) | payer OTHER, SELFPAY ==
[2024-07-16 09:16] VITALS: BP 138/84; PULSE 82; O2SAT 99; BMI 29.2
--- NOTE | 2024-07-16 09:16 | MHC.OFFVIS ---
Vital Signs 07/16/24 09:16 Height 5 ft 1 in Weight 154 lb 12.232 oz BMI 29.2 BP 138/84 Blood Pressure Location Rt brachial Position Sitting Pulse 82 Pulse Source Pulse Oximeter Pulse Oximetry (%) 99 Oxygen Delivery Method Room Air Intake Visit Reasons: 6 mos FUV. Rescheduled x1 Intake Note: Linnette presents in office today for a scheduled 6-8 mos FUV. CC: Pt was rx'd esomeprazole, miralax, and creon at her last visit. No lab orders were placed at her last visit. Pt does still report LUQ pain and pressure intermittently depending on intake. Pt does report that her sx have improved to some degree. Pt does report having more normal BMs. Pt would like to discuss their medications. Pt has been having a hard time affording the creon. Pt also would like to discuss their most recent labs. Pt reports having worsening anemia and low vitamin D. Pt reports that her last labs were a few months ago. 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 Rescheduled x1: Details: LAST VISIT Exocrine pancreatic insufficiency GERD without esophagitis IBS (irritable bowel syndrome) Plan Patient will continue Creon. Discussed with her avoiding dietary triggers. Continue Nexium every morning. Discussed with patient avoiding eating late at night. Staying upright for minimal 3 hours after meals discussed with patient. I will see patient in 6 months, sooner on as needed basis. Patient is agreeable to this plan and verbalizes understanding of instructions. She was given the opportunity to ask questions and all questions answered ? Thank you for allowing me to participate in her care Medications Refilled acfaty-[id number]-[id number] 24,000-76,000 -120,000 unit (Creon) administer with meals and/or snacks 1 cap PO QID 120 caps 5RF K86.81 esomeprazole magnesium (Nexium) 40 mg PO DAILY 90 caps 5RF K21.9 polyethylene glycol 3350 (Miralax) 17 grams PO DAILY 510 grams 2RF Discontinued sucralfate Discontinued Reason: Doctor's Order 1 g PO BEDTIME 30 tabs 4RF R19.7 TODAY'S VISIT: Patient is here today for follow-up. Patient reports that she continues to have left upper quadrant discomfort and bloating depending on what she eats. Patient is taking Creon, however she reports that she has to pay 50 dollar co-pay every time she refills it. Would like to see if there is anything else that she can take. Patient reports constipation, denies any melena, hematochezia. Denies any dyspepsia, dysphagia or odynophagia. Reports occasional reflux. Patient was unable to fill her Nexium and has been without it for sometimes. Symptoms not daily but occasional. Epigastric pain and reflux depending on what she eats. Patient takes MiraLax on as needed basis. [facility] Medical History Constipation GERD without esophagitis Gastritis Asthma Left sided abdominal pain Overweight (BMI 25.0-29.9) Abdominal pain ZHOU positive Varicose veins of bilateral lower extremities with pain Surgical History History of esophagogastroduodenoscopy (EGD) Hx of colonoscopy Hx of laparoscopy Status post laser ablation of incompetent vein H/O tubal ligation Hx of cholecystectomy (~2014) H/O gastric bypass (~2018) Family History Father HTN (hypertension) Diabetes mellitus Mother HTN (hypertension) Diabetes mellitus Asthma Brother No problems noted. Brother No problems noted. Brother No problems noted. Brother No problems noted. Sister No problems noted. Daughter No problems noted. Son No problems noted. Son No problems noted. Paternal Aunt Breast cancer Family/Other Colon cancer Maternal Aunt Ovarian cancer Social History Household Members: Spouse Housing: House Do you presently have visiting nurse or other home services: No Alcohol intake: never Patient Tobacco Use Status: Never used Tobacco Second Hand Smoke Exposure: No service: No Current occupational status: employed Cognitive needs: No Hearing needs: No Vision needs: No Female Reproductive History Menstrual Age of Menarche: 14 Review of Systems Const Denies weight gain and Denies weight loss ENT Reports no additional complaints, Denies dysphagia and Denies odynophagia Card Reports no additional complaints Resp Reports no additional complaints GI Denies abdominal pain, Denies belching, Denies melena, Reports bloating, Reports constipation, Denies dysphagia, Denies excessive flatus, Denies dyspepsia, Reports heartburn, Denies diarrhea, Denies loose stools, Denies nausea, Denies odynophagia and Denies vomiting Reports no additional complaints Musc Reports no additional complaints Neuro Reports no additional complaints Psych Reports no additional complaints Endo Reports no additional complaints Physical Exam Vital Signs: Last Vital Signs Pulse 82 07/16/24 09:16 BP 138/84 07/16/24 09:16 Pulse Ox 99 07/16/24 09:16 Oxygen Delivery Method Room Air 07/16/24 09:16 BMI result Body Mass Index 29.2 Const General: healthy appearing and no acute distress Nutritional Appearance: obese Orientation/consciousness: patient oriented x3 Resp Effort & Inspection: normal respiratory effort, able to speak in complete sentences, no tracheal deviation and symmetric chest movement Auscultation: clear to auscultation bilaterally Cardio Rate: regular rate GI Inspection: Yes normal to inspection, No distended and Yes obesity Palpation (GI): Soft to palpation, not firm, nontender and No hepatosplenomegaly present Auscultation: normal bowel sounds General: Yes no CVA tenderness Back/Spine/Pelvis Back: no CVA tenderness Skin General skin exam: elasticity normal, turgor normal and dry skin Neuro General: patient oriented x3 Psych Appearance: grossly normal Mental Status: mental status grossly normal Assessment & Plan Assessment & Plan (1) Exocrine pancreatic insufficiency: Code(s): K86.81 - Exocrine pancreatic insufficiency Category: Medical (2) GERD without esophagitis: Code(s): K21.9 - Gastro-esophageal reflux disease without esophagitis Category: Medical (3) IBS (irritable bowel syndrome): Code(s): K58.9 - Irritable bowel syndrome, unspecified Qualifiers: Irritable bowel syndrome type: without diarrhea Qualified Code(s): K58.9 - Irritable bowel syndrome, unspecified (4) Abdominal pain, LUQ (left upper quadrant): Code(s): R10.12 - Left upper quadrant pain (5) Postprandial abdominal bloating: Code(s): R14.0 - Abdominal distension (gaseous) Plan Patient will try to purchase [id number] enzymes and see if they will be helpful if not she will switch back to Creon. I will order her Nexium 20 mg as her symptoms of acid reflux are only occasional depending on what she eats. Avoid dietary triggers and late night snacking. Staying upright for minimum 3 hours after meals discussed with patient. Left upper quadrant pain most likely related to gas trapping pain. Patient will try to use MiraLax daily and will take maybe senna to help her empty better. Low FODMAP diet discussed with patient. List of food recommended as well as list of food to avoid given to patient. Patient will follow-up in 6 months, sooner on as needed basis. She is agreeable to this plan and verbalizes understanding of instructions. She was given the opportunity to ask questions and all questions answered. Thank you for allowing me to participate in her care Medications: New esomeprazole magnesium (Nexium) 20 mg PO DAILY 30 caps 4RF Refilled cholecalciferol (vitamin D3) 25 mcg PO DAILY 90 caps 3RF Discontinued esomeprazole magnesium (Nexium) Discontinued Reason: Doctor's Order 40 mg PO DAILY 90 caps 5RF K21.9 - Gastro-esophageal reflux disease without esophagitis Coding Level of Care Code Est Pt Level 4 (48074) Diagnoses Exocrine pancreatic insufficiency K86.81 GERD without esophagitis K21.9 Irritable bowel syndrome without diarrhea K58.9 Irritable bowel syndrome type: without diarrhea Abdominal pain, LUQ (left upper quadrant) R10.12 Postprandial abdominal bloating R14.0 Time Spent (min) 35 Comment 25 minutes spent with patient and additional 15 minutes spent reviewing her records
== END 2024-07-16 09:50 | disposition home or self-care (01) ==
PROVIDERS: PCP Internal Medicine; Visit Provider Nurse Practitioner Family
DX: K86.81 Exocrine pancreatic insufficiency (principal); K21.9 Gastro-esophageal reflux disease without esophagitis; K58.9 Irritable bowel syndrome, unspecified; R10.12 Left upper quadrant pain; R14.0 Abdominal distension (gaseous)
CPT/HCPCS: 99214

== ENCOUNTER → 2024-07-16 09:10 | Outpatient (BNVA) | payer SELFPAY | PROVIDERS: PCP Internal Medicine; Visit Provider Nurse Practitioner Family | DX: R10.12 Left upper quadrant pain (principal); R14.0 Abdominal distension (gaseous); K86.81 Exocrine pancreatic insufficiency; K21.9 Gastro-esophageal reflux disease without esophagitis; K58.9 Irritable bowel syndrome, unspecified | CPT/HCPCS: 99212 ==

== ENCOUNTER 2024-08-25 08:46 | Outpatient (AMB) | payer OTHER, SELFPAY ==
--- NOTE | 2024-08-25 09:10 | AM.OFFVISNUR ---
Intake Visit Reasons: flu vaccine Allergies No Known Allergies [No Known Allergies*] Allergy (Verified 07/16/24 09:18) Office Procedures Flu Questionnaire Does the patient have a severe egg allergy?: No Does the patient have severe life threatening allergies?: No Does the patient have a fever or illness today?: No Has the patient ever had Guillain-Donaldson Syndrome?: No Has the patient ever had any past reaction to a flu shot?: No Assessment & Plan Assessment & Plan Orders: Orders Influenza [id number] Immunization Today Z23 - Encounter for immunization Medications: New Fluarix Triv [id number] (PF) (flu vacc [id number] 6mos up(PF)) 0.5 mL IM ONCE 0.5 mL 0RF NS Z23 - Encounter for immunization
== END 2024-08-25 09:11 | disposition home or self-care (01) ==
PROVIDERS: PCP Internal Medicine; Visit Provider Internal Medicine
DX: Z23 Encounter for immunization (principal)

== ENCOUNTER → 2024-08-25 08:46 | Outpatient (BNVA) | payer OTHER, SELFPAY | PROVIDERS: PCP Internal Medicine; Visit Provider Internal Medicine | DX: Z23 Encounter for immunization (principal) | CPT/HCPCS: 90471; 90656 ==

== ENCOUNTER 2024-08-26 15:24 | Outpatient (REF) | payer OTHER, SELFPAY ==
--- NOTE | ~2024-08-26 | MM_ITS ---
EXAMINATION: MM SCREENING DIGITAL BREAST TOMOSYNTHESIS, BILATERAL CLINICAL INFORMATION: Screening. Asymptomatic. COMPARISON: Mammography: Comparison is made with available priors TECHNIQUE: Digital breast mammography with tomosynthesis is performed in both the craniocaudal and mediolateral oblique views along with computer-aided detection (CAD). FINDINGS: There are scattered areas of fibroglandular density (ACR BI-RADS breast composition Category b). There are no significant masses, abnormal calcifications, or other abnormalities. MM/MM tomosynthesis screening BI IMPRESSION: No mammographic evidence of malignancy. ASSESSMENT: BI-RADS BI-RADS 1 - Negative RECOMMENDATION: Routine annual mammography screening. 1 year F/U This examination should not preclude the clinical evaluation of a suspicious palpable abnormality. This patient's information was entered into a reminder system with a target due date for their next mammogram. Electronically signed by: Jenna Wilde DO 09/07/2024 09:05 AM PATRICIA
== END 2024-08-26 15:25 | disposition home or self-care (01) ==
LOC: HO.MAMMO 15:24
PROVIDERS: PCP Internal Medicine; Visit Provider Internal Medicine
DX: Z12.31 Encounter for screening mammogram for malignant neoplasm of breast (principal)
CPT/HCPCS: 77063; 77067

== ENCOUNTER → 2024-08-26 15:45 | Outpatient (BNV) | payer OTHER, SELFPAY | PROVIDERS: PCP Internal Medicine; Visit Provider Internal Medicine | DX: Z12.31 Encounter for screening mammogram for malignant neoplasm of breast (principal) | CPT/HCPCS: 77063; 77067 ==

== ENCOUNTER 2024-09-01 12:05 | Outpatient (REF) | payer OTHER, SELFPAY ==
[2024-09-01 15:18] LABS: Appearance Urine Clear; Color Urine Yellow; Glucose Urine UA Negative (Negative); Leukocyte Esterase Urine Negative (Negative); Nitrite Urine Positive (Negative); Specific Gravity - Urine 1.025 (1.005-1.025); UMIC TRIGGER UACC YES; Urine Blood Negative (Negative); Urine Ketones Negative (Negative); Urine Protein Negative (Neg-Trace)
[2024-09-01 15:27] LABS: Bacteria Urine 4+ (None Seen); Hyaline Casts Urine 0-2 /LPF (0-2); RBC Urine 0-2 /HPF (0-2); Squamous Epithelial Cell Urine 0-2 /HPF (0-2); UACC Culture Trigger YES; WBC Urine 0-5 /HPF (0-5)
[2024-09-01 15:44] LABS: Blood Urea Nitrogen 13 mg/dL (9-16); Estimated Glomerular Filt Rate > 60; Lipase 36 U/L (8-78)
== END 2024-09-01 12:06 | disposition home or self-care (01) ==
LOC: HO.LAB 12:05
PROVIDERS: PCP Internal Medicine; Visit Provider Nurse Practitioner Family
DX: R10.32 Left lower quadrant pain (principal); R10.11 Right upper quadrant pain; Z87.19 Personal history of other diseases of the digestive system
CPT/HCPCS: 36415; 81001; 82565; 83690; 84520; 87086; 87088; 87186; 99212

== ENCOUNTER 2024-09-01 12:05 | Outpatient (AMB) | payer OTHER, SELFPAY ==
--- NOTE | 2024-09-01 12:14 | A.OFFVIS_ITS ---
Vital Signs 09/01/24 12:15 Height 5 ft 1 in Weight 159 lb 2.78 oz BMI 30.1 BP 142/78 H Blood Pressure Location Rt brachial Position Sitting Pulse 64 Pulse Source Pulse Oximeter Pulse Oximetry (%) 99 Oxygen Delivery Method Room Air Intake Visit Reasons: Urgent Need - ABD Pain Intake Note: cholecalciferol (vitamin D3) 25 mcg (1,000 unit) capsule 25 mcg PO DAILY 90 caps 3RF GentryVielka romero Darling 07/16/24 09:46 (Transmitted) Relevant Flags or Indicators ? Requires Check Cashier? Shelby Anglin presents in office today for a scheduled urgent need FUV. Pt last seen x1 mos ago. CC; New onset of progressively worsening abd pain. Relevant Rx from last visit as per above. Relevant GI Sx as reported per pt? oConstipation - No melena or hematochezia. ?Abdominal Pain - LUQ. Pt reports that she has had this pain previously when she experienced the complication of the colon (twisting). * Bloating and abdominal distention. ?Hx of any recent surgeries? None Check Cashier Required: No Allergies No Known Allergies [No Known Allergies*] Allergy (Verified 09/01/24 12:15) HPI HPI Urgent Need - ABD Pain: Details: LAST VISIT: Exocrine pancreatic insufficiency GERD without esophagitis IBS (irritable bowel syndrome) Abdominal pain, LUQ (left upper quadrant) Postprandial abdominal bloating Plan Patient will try to purchase [id number] enzymes and see if they will be helpful if not she will switch back to Creon. I will order her Nexium 20 mg as her symptoms of acid reflux are only occasional depending on what she eats. Avoid dietary triggers and late night snacking. Staying upright for minimum 3 h ours after meals discussed with patient. Left upper quadrant pain most likely related to gas trapping pain. Patient will try to use MiraLax daily and will take maybe senna to help her empty better. Low FODMAP diet discussed with patient. List of food recommended as well as list of food to avoid given to patient. Patient will follow-up in 6 months, sooner on as needed basis. She is agreeable to this plan and verbalizes understanding of instructions. She was given the opportunity to ask questions and all questions answered. ? Thank you for allowing me to participate in her care Medications New esomeprazole magnesium (Nexium) 20 mg PO DAILY 30 caps 4RF Refilled cholecalciferol (vitamin D3) 25 mcg PO DAILY 90 caps 3RF Discontinued esomeprazole magnesium (Nexium) Discontinued Reason: Doctor's Order 40 mg PO DAILY 90 caps 5RF K21.9 TODAY'S VISIT: Patient is here today for requested visit. Patient reports left upper quadrant discomfort, abdominal bloating postprandially. Patient is constipated and it is not moving her bowels well. Patient denies any fever or chills. Passing gas. Denies any nausea or vomiting. Patient does report that her area in the left upper quadrant is quite tender. Patient is afraid that this could be bulbous that she was diagnosed in February of 2022. Patient reports that the symptoms have been going on for 3 weeks and it is getting worse. She does admit that after bowel movement she is feeling little better. Currently she is not using anything to help her move her bowels. She is on iron supplements. Patient was given MiraLax in the past, however she has not been faithful in using that. Patient denies dyspepsia, dysphagia or odynophagia. Uses Nexium for acid reflux with good results. Patient denies any melena, hematochezia. [facility] Medical History Constipation GERD without esophagitis Gastritis Asthma Left sided abdominal pain Overweight (BMI 25.0-29.9) Abdominal pain ZHOU positive Varicose veins of bilateral lower extremities with pain Surgical History History of esophagogastroduodenoscopy (EGD) Hx of colonoscopy Hx of laparoscopy Status post laser ablation of incompetent vein H/O tubal ligation Hx of cholecystectomy (~2014) H/O gastric bypass (~2018) Family History Father HTN (hypertension) Diabetes mellitus Mother HTN (hypertension) Diabetes mellitus Asthma Brother No problems noted. Brother No problems noted. Brother No problems noted. Brother No problems noted. Sister No problems noted. Daughter No problems noted. Son No problems noted. Son No problems noted. Paternal Aunt Breast cancer Family/Other Colon cancer Maternal Aunt Ovarian cancer Social History Household Members: Spouse Housing: House Do you presently have visiting nurse or other home services: No Alcohol intake: never Patient Tobacco Use Status: Never used Tobacco Second Hand Smoke Exposure: No service: No Current occupational status: employed Cognitive needs: No Hearing needs: No Vision needs: No Female Reproductive History Menstrual Age of Menarche: 14 Review of Systems Const Denies weight gain and Denies weight loss ENT Reports no additional complaints, Denies dysphagia and Denies odynophagia Card Reports no additional complaints Resp Reports no additional complaints GI Denies abdominal pain, Denies belching, Denies melena, Denies bloating, Denies change in bowel habits, Denies dysphagia, Denies excessive flatus, Denies dyspepsia, Denies heartburn, Denies diarrhea, Denies loose stools, Denies nausea, Denies odynophagia and Denies vomiting Musc Reports no additional complaints Neuro Reports no additional complaints Psych Reports no additional complaints Endo Reports no additional complaints Physical Exam Vital Signs: Last Vital Signs Pulse 64 09/01/24 12:15 BP 142/78 H 09/01/24 12:15 Pulse Ox 99 09/01/24 12:15 Oxygen Delivery Method Room Air 09/01/24 12:15 BMI result Body Mass Index 30.1 Const General: healthy appearing and no acute distress Nutritional Appearance: obese Orientation/consciousness: patient oriented x3 Resp Effort & Inspection: normal respiratory effort, able to speak in complete sentences, no tracheal deviation and symmetric chest movement Auscultation: clear to auscultation bilaterally Cardio Rate: regular rate GI Inspection: Yes normal to inspection, No distended and Yes obesity Palpation (GI): Soft to palpation, not firm, Tenderness to palpation present (GI) in the LUQ and No hepatosplenomegaly present Auscultation: Hyperactive bowel sounds present General: Yes no CVA tenderness Back/Spine/Pelvis Back: no CVA tenderness Skin General skin exam: elasticity normal, turgor normal and dry skin Neuro General: patient oriented x3 Psych Appearance: grossly normal Mental Status: mental status grossly normal Assessment & Plan Assessment & Plan (1) Exocrine pancreatic insufficiency: Code(s): K86.81 - Exocrine pancreatic insufficiency Category: Medical (2) GERD without esophagitis: Code(s): K21.9 - Gastro-esophageal reflux disease without esophagitis Category: Medical (3) IBS (irritable bowel syndrome): Code(s): K58.9 - Irritable bowel syndrome, unspecified Qualifiers: Irritable bowel syndrome type: without diarrhea Qualified Code(s): K58.9 - Irritable bowel syndrome, unspecified (4) Abdominal pain, LUQ (left upper quadrant): Code(s): R10.12 - Left upper quadrant pain (5) Postprandial abdominal bloating: Code(s): R14.0 - Abdominal distension (gaseous) Plan Will order stat CT scan. senior mainframe developer will call to book as soon as we can. Patient was encouraged to go to ER if her symptoms will get worse or if she will not be able to pass gas, develop fever or chills, increased tenderness. Patient will start taking senna. Increase fluid intake and activity to promote better bowel motility. Patient will return in [address] scan. Sooner results pending. Patient is agreeable to current plan of care and verbalizes understanding of instructions. She was given the opportunity to ask questions and all questions answered. Thank you for allowing me to participate in her care Orders: Orders CT abdomen pelvis w IV con Today R10.32 - Left lower quadrant pain, R10.9 - Unspecified abdominal pain, Z87.19 - Personal history of other diseases of the digestive system Blood Urea Nitrogen Today R10.11 - Right upper quadrant pain Creatinine Today R10.11 - Right upper quadrant pain Lipase Today R10.9 - Unspecified abdominal pain Medications: New sennosides (Natural Senna Laxative) 17.2 mg (2 x 8.6 mg) PO BEDTIME 60 tabs 3RF constipation K59.00 - Constipation, unspecified Coding Level of Care Code Est Pt Level 4 (47742) Complex EM visit Add On G2211 Diagnoses Exocrine pancreatic insufficiency K86.81 GERD without esophagitis K21.9 Irritable bowel syndrome without diarrhea K58.9 Irritable bowel syndrome type: without diarrhea Abdominal pain, LUQ (left upper quadrant) R10.12 Postprandial abdominal bloating R14.0 Time Spent (min) 35 Comment 25 minutes spent with patient and additional 10 minutes spent reviewing her records
[2024-09-01 12:15] VITALS: BP 142/78; PULSE 64; O2SAT 99; BMI 30.1
== END 2024-09-01 13:44 | disposition home or self-care (01) ==
PROVIDERS: PCP Internal Medicine; Visit Provider Nurse Practitioner Family
DX: K86.81 Exocrine pancreatic insufficiency (principal); K21.9 Gastro-esophageal reflux disease without esophagitis; K58.9 Irritable bowel syndrome, unspecified; R10.12 Left upper quadrant pain; R14.0 Abdominal distension (gaseous)
CPT/HCPCS: 99214; G2211

== ENCOUNTER 2024-09-04 09:04 | Outpatient (REF) | payer OTHER, SELFPAY ==
--- NOTE | ~2024-09-04 | CT_ITS ---
EXAMINATION: CT ABDOMEN AND PELVIS WITH CONTRAST CLINICAL INFORMATION: Abdominal pain. COMPARISON: Most recent CT abdomen/pelvis dated 02/11/2023. Pelvic ultrasound dated 04/24/2024. TECHNIQUE: Multidetector volumetric images were obtained from the superior aspect of the liver through the pubic symphysis following administration 85 mL of Omnipaque 350 intravenous contrast. Sagittal and coronal reformatted images were obtained on the technologist's workstation. Oral contrast: Yes This CT examination was performed using dose optimization techniques as appropriate, variously including the following: *Automated exposure control *Adjustment of mA and/or kV according to patient size (this includes techniques or standardized protocols for targeted exams where dose is matched to indication/reason for exam; i.e. extremities or head) *Use of iterative reconstruction technique DLP: 589 mGy-cm FINDINGS: LUNG BASES: The visualized lung bases are unremarkable. LIVER, GALLBLADDER, AND BILIARY TREE: The liver is normal in size, shape, and attenuation. No focal hepatic lesion. Status post cholecystectomy. Prominence of the main bile duct as well as mild dilatation of the intrahepatic biliary ducts is unchanged and likely related to cholecystectomy. PANCREAS: Unremarkable. SPLEEN: Unremarkable. ADRENAL GLANDS: Unremarkable. KIDNEYS AND URETERS: The kidneys are normal in size, shape, and attenuation. No hydronephrosis, hydroureter, or calculi seen. No perinephric stranding. BLADDER: Unremarkable. Pelvic phleboliths are redemonstrated. GASTROINTESTINAL TRACT: Postsurgical change consistent with Julio C-en-Y gastric bypass. Unremarkable bowel anastomosis. Oral contrast reaches the distal colon. No small or large bowel obstruction. There is a segment of nondistended colon just proximal to the splenic flexure measuring up to 5.7 cm in length (axial image 25/96). This demonstrates mild wall prominence and may be due to underdistention. An underlying lesion cannot be entirely excluded and if there is clinical concern, direct visualization could help further evaluate. Appendix not identified. No right lower quadrant inflammatory change to suggest acute appendicitis. PERITONEAL CAVITY: No intra-abdominal free air or free fluid. No organized fluid collection or abscess formation. ABDOMINAL WALL: No significant hernia is appreciated. LYMPH NODES: No lymphadenopathy. VASCULAR: No abdominal aortic dilatation or dissection. Unremarkable IVC. PELVIC VISCERA: IUD within the uterus. Probable lower uterine segment fibroid, as seen on the prior ultrasound. OSSEOUS STRUCTURES: Unremarkable. CT/CT abdomen pelvis w IV con IMPRESSION: 1. Postsurgical change consistent with Julio C-en-Y gastric bypass. No small or large bowel obstruction. No bowel wall thickening or associated inflammatory change. 2. Segment of nondistended colon just proximal to the splenic flexure measuring up to 5.7 cm in length. This demonstrates mild wall prominence and may be due to underdistention. An underlying lesion cannot be entirely excluded and if there is clinical concern, direct visualization could help further evaluate. 3. No intra-abdominal mass, lymphadenopathy, or ascites. 4. IUD within the uterus. Probable lower uterine segment fibroid, as seen on the prior ultrasound. Fleischner guidelines were followed. Electronically signed by: Sekou Vazquez MD 09/04/2024 04:26 PM PATRICIA MARTINEZ
[2024-09-04] MEDS: iohexoL 350 MG/ML 100 ML INFUS..BTL IV (11:48)
[2024-09-04] MEDS: Barium Sulfate Oral (Berry) 450 ML ORAL.SUSP 900 ML PO (11:48)
== END 2024-09-04 09:05 | disposition home or self-care (01) ==
LOC: HO.CT 09:04
PROVIDERS: PCP Internal Medicine; Visit Provider Nurse Practitioner Family
DX: R10.32 Left lower quadrant pain (principal); Z87.19 Personal history of other diseases of the digestive system
CPT/HCPCS: 74177; Q9967

== ENCOUNTER 2024-09-09 11:51 | Outpatient (AMB) | payer OTHER, SELFPAY ==
[2024-09-09 11:58] VITALS: BP 146/88; PULSE 56; O2SAT 100; BMI 29.4
--- NOTE | 2024-09-09 11:58 | MHC.OFFVIS ---
Vital Signs 09/09/24 11:58 Height 5 ft 1 in Weight 155 lb 10.342 oz BMI 29.4 BP 146/88 H Blood Pressure Location Rt brachial Position Sitting Pulse 56 Pulse Source Pulse Oximeter Pulse Oximetry (%) 100 Oxygen Delivery Method Room Air Intake Visit Reasons: discuss results Intake Note: Linnette presents in office today for a scheduled FUV to discuss CT results CC; Any changes or new sx since last visit? No significant changes or new concerns. Any labs or diagnostics since last visit? ?CT scan. Decorator Mannequin Required: No Allergies No Known Allergies [No Known Allergies*] Allergy (Verified 09/09/24 12:01) HPI HPI discuss results: Details: LAST VISIT Exocrine pancreatic insufficiency GERD without esophagitis IBS (irritable bowel syndrome) Abdominal pain, LUQ (left upper quadrant) Postprandial abdominal bloating Plan Will order stat CT scan. round boner will call to book as soon as we can. Patient was encouraged to go to ER if her symptoms will get worse or if she will not be able to pass gas, develop fever or chills, increased tenderness. Patient will start taking senna. Increase fluid intake and activity to promote better bowel motility. Patient will return in [address] scan. Sooner results pending. Patient is agreeable to current plan of care and verbalizes understanding of instructions. She was given the opportunity to ask questions and all questions answered. ? Thank you for allowing me to participate in her care Orders Orders CT abdomen pelvis w IV con Today R10.32, R10.9, Z87.19 Blood Urea Nitrogen Today R10.11 Creatinine Today R10.11 Lipase Today R10.9 Medications New sennosides (Natural Senna Laxative) 17.2 mg (2 x 8.6 mg) PO BEDTIME 60 tabs 3RF constipation K59.00 TODAY'S VISIT Patient is here today for follow-up and to discuss CT scan results and go over prep. Patient will have colonoscopy on September 23. Patient is feeling little better. Moving her bowels better. CT scan results discussed with patient. Under distention noted in splenic flexure suspicion for lesion which will be evaluated with colonoscopy. Patient denies any melena, hematochezia, unintentional weight loss or ribbon like stools. Patient denies any dyspepsia, dysphagia or odynophagia. Currently taking Nexium and her symptoms of acid reflux are suppressed. Taking also MiraLax daily. [facility] Medical History Constipation GERD without esophagitis Gastritis Asthma Overweight (BMI 25.0-29.9) ZHOU positive Varicose veins of bilateral lower extremities with pain Surgical History History of loop electrical excision procedure (LEEP) History of esophagogastroduodenoscopy (EGD) Hx of colonoscopy Hx of laparoscopy Status post laser ablation of incompetent vein H/O tubal ligation Hx of cholecystectomy (~2014) H/O gastric bypass (~2017) Family History Father HTN (hypertension) Diabetes mellitus Mother HTN (hypertension) Diabetes mellitus Asthma Brother No problems noted. Brother No problems noted. Brother No problems noted. Brother No problems noted. Sister No problems noted. Daughter No problems noted. Son No problems noted. Son No problems noted. Paternal Aunt Breast cancer Family/Other Colon cancer Maternal Aunt Ovarian cancer Social History Household Members: Spouse Housing: House Are you a primary director medicare sales to a significant other at home: No Do you presently have visiting nurse or other home services: No Alcohol intake: never Patient Tobacco Use Status: Never used Tobacco Second Hand Smoke Exposure: No service: No Current occupational status: employed Cognitive needs: No Hearing needs: No Vision needs: No Female Reproductive History Menstrual Age of Menarche: 14 Review of Systems Const Denies weight gain and Denies weight loss ENT Reports no additional complaints, Denies dysphagia and Denies odynophagia Card Reports no additional complaints Resp Reports no additional complaints GI Reports abdominal pain, Denies belching, Denies melena, Reports bloating, Denies change in bowel habits, Reports constipation, Denies dysphagia, Denies excessive flatus, Denies dyspepsia, Denies heartburn, Denies diarrhea, Denies loose stools, Denies nausea, Denies odynophagia and Denies vomiting Reports no additional complaints Musc Reports no additional complaints Neuro Reports no additional complaints Psych Reports no additional complaints Endo Reports no additional complaints Physical Exam Vital Signs: Last Vital Signs Pulse 56 09/09/24 11:58 BP 146/88 H 09/09/24 11:58 Pulse Ox 100 09/09/24 11:58 Oxygen Delivery Method Room Air 09/09/24 11:58 BMI result Body Mass Index 29.4 Const General: healthy appearing and no acute distress Nutritional Appearance: obese Orientation/consciousness: patient oriented x3 Resp Effort & Inspection: normal respiratory effort, able to speak in complete sentences, no tracheal deviation and symmetric chest movement Auscultation: clear to auscultation bilaterally Cardio Rate: regular rate GI Inspection: Yes normal to inspection, No distended and Yes obesity Palpation (GI): Soft to palpation, not firm, Tenderness to palpation present (GI) in the LUQ and No hepatosplenomegaly present Auscultation: Hyperactive bowel sounds present General: Yes no CVA tenderness Back/Spine/Pelvis Back: no CVA tenderness Skin General skin exam: elasticity normal, turgor normal and dry skin Neuro General: patient oriented x3 Psych Appearance: grossly normal Mental Status: mental status grossly normal Results Reviewed Results Reviewed: Laboratory Tests 09/01/24 13:[address] OF ABDOMEN AND PELVIS FINDINGS: LUNG BASES: The visualized lung bases are unremarkable. LIVER, GALLBLADDER, AND BILIARY TREE: The liver is normal in size, shape, and attenuation. No focal hepatic lesion. Status post cholecystectomy. Prominence of the main bile duct as well as mild dilatation of the intrahepatic biliary ducts is unchanged and likely related to cholecystectomy. PANCREAS: Unremarkable. SPLEEN: Unremarkable. ADRENAL GLANDS: Unremarkable. KIDNEYS AND URETERS: The kidneys are normal in size, shape, and attenuation. No hydronephrosis, hydroureter, or calculi seen. No perinephric stranding. BLADDER: Unremarkable. Pelvic phleboliths are redemonstrated. GASTROINTESTINAL TRACT: Postsurgical change consistent with Julio C-en-Y gastric bypass. Unremarkable bowel anastomosis. Oral contrast reaches the distal colon. No small or large bowel obstruction. There is a segment of nondistended colon just proximal to the splenic flexure measuring up to 5.7 cm in length (axial image 25/96). This demonstrates mild wall prominence and may be due to underdistention. An underlying lesion cannot be entirely excluded and if there is clinical concern, direct visualization could help further evaluate. Appendix not identified. No right lower quadrant inflammatory change to suggest acute appendicitis. PERITONEAL CAVITY: No intra-abdominal free air or free fluid. No organized fluid collection or abscess formation. ABDOMINAL WALL: No significant hernia is appreciated. LYMPH NODES: No lymphadenopathy. VASCULAR: No abdominal aortic dilatation or dissection. Unremarkable IVC. PELVIC VISCERA: IUD within the uterus. Probable lower uterine segment fibroid, as seen on the prior ultrasound. OSSEOUS STRUCTURES: Unremarkable. CT/CT abdomen pelvis w IV con IMPRESSION: 1. Postsurgical change consistent with Julio C-en-Y gastric bypass. No small or large bowel obstruction. No bowel wall thickening or associated inflammatory change. 2. Segment of nondistended colon just proximal to the splenic flexure measuring up to 5.7 cm in length. This demonstrates mild wall prominence and may be due to underdistention. An underlying lesion cannot be entirely excluded and if there is clinical concern, direct visualization could help further evaluate. 3. No intra-abdominal mass, lymphadenopathy, or ascites. 4. IUD within the uterus. Probable lower uterine segment fibroid, as seen on the prior ultrasound. Assessment & Plan Assessment & Plan (1) Exocrine pancreatic insufficiency: Code(s): K86.81 - Exocrine pancreatic insufficiency Category: Medical (2) GERD without esophagitis: Code(s): K21.9 - Gastro-esophageal reflux disease without esophagitis Category: Medical (3) IBS (irritable bowel syndrome): Code(s): K58.9 - Irritable bowel syndrome, unspecified Qualifiers: Irritable bowel syndrome type: without diarrhea Qualified Code(s): K58.9 - Irritable bowel syndrome, unspecified (4) Abdominal pain, LUQ (left upper quadrant): Code(s): R10.12 - Left upper quadrant pain (5) Postprandial abdominal bloating: Code(s): R14.0 - Abdominal distension (gaseous) Plan Colonoscopy scheduled for the . Discussed with patient the importance of good bowel prep day before procedure as well as clear liquid diet. What to expect before during and after procedure discussed with patient. Evaluation of the splenic flexure to see if there is any lesion or any protrusion within the bowel. CT scan was done with oral and IV contrast. Patient will follow-up in the office after the procedure. She will call us if she will have any GI concerning symptoms. She is agreeable to this plan and verbalizes understanding of instructions. She was given the opportunity to ask questions and all questions answered. Thank you for allowing me to participate in her care Coding Level of Care Code Est Pt Level 4 (15412) Diagnoses Exocrine pancreatic insufficiency K86.81 GERD without esophagitis K21.9 Irritable bowel syndrome without diarrhea K58.9 Irritable bowel syndrome type: without diarrhea Abdominal pain, LUQ (left upper quadrant) R10.12 Postprandial abdominal bloating R14.0 Time Spent (min) 40 Comment 25 minutes spent with patient and additional 15 minutes spent reviewing her records
== END 2024-09-09 12:34 | disposition home or self-care (01) ==
PROVIDERS: PCP Internal Medicine; Visit Provider Nurse Practitioner Family
DX: K86.81 Exocrine pancreatic insufficiency (principal); K21.9 Gastro-esophageal reflux disease without esophagitis; K58.9 Irritable bowel syndrome, unspecified; R10.12 Left upper quadrant pain; R14.0 Abdominal distension (gaseous)
CPT/HCPCS: 99214

== ENCOUNTER → 2024-09-09 11:51 | Outpatient (BNVA) | payer OTHER, SELFPAY | PROVIDERS: PCP Internal Medicine; Visit Provider Nurse Practitioner Family | DX: K21.9 Gastro-esophageal reflux disease without esophagitis (principal); K58.9 Irritable bowel syndrome, unspecified; K86.81 Exocrine pancreatic insufficiency; R10.12 Left upper quadrant pain; R14.0 Abdominal distension (gaseous) | CPT/HCPCS: 99212 ==

== ENCOUNTER 2024-09-23 10:49 | Day surgery (SDC) | payer OTHER, SELFPAY ==
[2024-09-21 14:23] VITALS: BMI 29.5
--- NOTE | 2024-09-22 12:45 | P.CONAN_ITS ---
Documented by User: Alisson Barrett NP 09/22/24 12:45 HPI - Anesthesia Eval Consult details Narrative: 54yo F for Colonoscopy PMFSH Active Problems Active Problems: All Active Problems Dizziness (Acute) Elevated blood pressure reading without diagnosis of hypertension (Acute) Bone pain (Acute) Paresthesia (Acute) Depression (Acute) Exocrine pancreatic insufficiency (Acute) Complex ovarian cyst (Acute) Uterine myoma (Acute) ASCUS with positive high risk HPV cervical (Acute) Hematoma (Acute) Varicose vein of leg (Acute) Screen for STD (sexually transmitted disease) (Acute) Well woman exam (Acute) Colon cancer screening (Acute) Annual physical exam (Acute) Abdominal pain (Acute) Anemia (Acute) Impacted teeth (Acute) Preoperative examination (Acute) Pelvic pain (Acute) EDEN II (cervical intraepithelial neoplasia II) (Acute) LGSIL on Pap smear of cervix (Acute) Heavy menstrual bleeding (Acute) Dysmenorrhea (Acute) Encounter for annual routine gynecological examination (Acute) Iron deficiency anemia (Acute) Anemia (Acute) Abdominal pain (Acute) Varicose veins of right lower extremity with inflammation (Acute) Constipation (Acute) Gastritis (Acute) Overweight (BMI 25.0-29.9) (Acute) GERD without esophagitis (Acute) H/O gastric bypass (Acute ~2018) Asthma (Acute) ZHOU positive (Acute) Past Medical History Medical History Constipation GERD without esophagitis Gastritis Asthma Overweight (BMI 25.0-29.9) ZHOU positive Varicose veins of bilateral lower extremities with pain Family History Family History Father HTN (hypertension) Diabetes mellitus Mother HTN (hypertension) Diabetes mellitus Asthma Brother No problems noted. Brother No problems noted. Brother No problems noted. Brother No problems noted. Sister No problems noted. Daughter No problems noted. Son No problems noted. Son No problems noted. Paternal Aunt Breast cancer Family/Other Colon cancer Maternal Aunt Ovarian cancer Family history of problems with anesthesia: No Surgical History Surgical History History of loop electrical excision procedure (LEEP) History of esophagogastroduodenoscopy (EGD) Hx of colonoscopy Hx of laparoscopy Status post laser ablation of incompetent vein H/O tubal ligation Hx of cholecystectomy (~2014) H/O gastric bypass (~2018) History of Problems with Anesthesia: No Social History Social History Household Members: Spouse Housing: House Are you a primary senior care specialist to a significant other at home: No Do you presently have visiting nurse or other home services: No Alcohol intake: never Patient Tobacco Use Status: Never used Tobacco Second Hand Smoke Exposure: No Use of substances other than those prescribed or required for medical reasons: No Have you been hit, kicked, punched, or otherwise hurt by someone within the past year? If so, by whom?: No Are you DNR?: No Advance Directives: No Advance Directives Information Provided: Yes Recently lost weight without trying: No Nutrition Risks: No Nutritional Risk Patient : No service: No Current occupational status: employed Cognitive needs: No Hearing needs: No Vision needs: No Meds Allergies Allergy/AdvReac Type Severity Reaction Status Date / Time No Known Allergies Allergy Verified 09/09/24 12:01 [No Known Allergies*] Home Medications ?Medication ?Instructions ?Recorded ?Confirmed ?Last Taken ?Type acetaminophen 325 mg tablet 650 mg PO Q6H PRN Pain 03/03/22 09/21/24 Unknown History ferrous sulfate 325 mg (65 mg 325 mg PO DAILY 09/07/22 09/21/24 01/22/23 History iron) tablet,delayed release Exam Height,Weight and Vital Signs: Height 5 ft 1 in Weight 70.76 kg Assessment and Plan Assessment Anesthesia Assessment: Chart Reviewed Final Anesthetic Review Family History of Problems with Anesthesia: No History of Problems with Anesthesia: No Documented by User: Mike Ruiz MD 09/23/24 12:41 PMFSH Past Medical History Medical History Constipation GERD without esophagitis Gastritis Asthma Overweight (BMI 25.0-29.9) ZHOU positive Varicose veins of bilateral lower extremities with pain Family History Family History Father HTN (hypertension) Diabetes mellitus Mother HTN (hypertension) Diabetes mellitus Asthma Brother No problems noted. Brother No problems noted. Brother No problems noted. Brother No problems noted. Sister No problems noted. Daughter No problems noted. Son No problems noted. Son No problems noted. Paternal Aunt Breast cancer Family/Other Colon cancer Maternal Aunt Ovarian cancer Surgical History Surgical History History of loop electrical excision procedure (LEEP) History of esophagogastroduodenoscopy (EGD) Hx of colonoscopy Hx of laparoscopy Status post laser ablation of incompetent vein H/O tubal ligation Hx of cholecystectomy (~2014) H/O gastric bypass (~2018) Social History Social History Household Members: Spouse Housing: House Are you a primary senior care specialist to a significant other at home: No Do you presently have visiting nurse or other home services: No Alcohol intake: never Patient Tobacco Use Status: Never used Tobacco Second Hand Smoke Exposure: No Use of substances other than those prescribed or required for medical reasons: No Have you been hit, kicked, punched, or otherwise hurt by someone within the past year? If so, by whom?: No Are you DNR?: No Advance Directives: No Advance Directives Information Provided: Yes Recently lost weight without trying: No Nutrition Risks: No Nutritional Risk Patient : No service: No Current occupational status: employed Cognitive needs: No Hearing needs: No Vision needs: No Meds Allergies Allergy/AdvReac Type Severity Reaction Status Date / Time No Known Allergies Allergy Verified 09/09/24 12:01 [No Known Allergies*] Home Medications ?Medication ?Instructions ?Recorded ?Confirmed ?Last Taken ?Type acetaminophen 325 mg tablet 650 mg PO Q6H PRN Pain 03/03/22 09/21/24 Unknown History ferrous sulfate 325 mg (65 mg 325 mg PO DAILY 09/07/22 09/21/24 01/22/23 History iron) tablet,delayed release Exam Airway Mallampati Class: II TM Dist: <=3cm Neck ROM: Full Loose/Missing/Broken Teeth: No Heart: ok Lungs: ok Assessment and Plan Assessment Anesthesia Assessment: Anesthesia Plan Discussed Final Anesthetic Review NPO: Yes ASA Class: II Final Preanesthetic Review: No Changes in Pt Med Stat, Meds/Allgs Chart Reviewed, Consent Obtained/Reviewed and Anes Risks/Benef Reviewed Patient Risk: Low Procedure Risk: Low Anesthetic Plan Anesthetic Plan: MAC: and Agree w/ Assess. and Plan Disposition: Standard PACU
[2024-09-23 11:39] VITALS: BP 165/80; PULSE 53; RESP 14; TEMP 36.6; O2SAT 100; BMI 28.7
--- NOTE | 2024-09-23 11:46 | MHC.SHP ---
Pre-Procedural Eval Section A - 24 Hr Update-Section A only Date of Service: 09/23/24 Section B - Complete if H&P > 30 days Chief Complaint: Irritable bowel syndrome, unspecified Details of Present Illness: abn imagin g Relevant Family History (Specify if Yes): No Relevant Social History: None Present Medications: see Short Stay Collaborative assessment Medical History: Significant History (Constipation GERD without esophagitis Gastritis Asthma Overweight (BMI 25.0-29.9) ZHOU positive Varicose veins of bilateral lower extremities with pain) History of Previous Operations: Relevant previous surgery/procedure and date(s) (History of loop electrical excision procedure (LEEP) History of esophagogastroduodenoscopy (EGD) Hx of colonoscopy Hx of laparoscopy Status post laser ablation of incompetent vein H/O tubal ligation Hx of cholecystectomy (~2014) H/O gastric bypass (~2017)) Allergies: Allergies Allergy/AdvReac Type Severity Reaction Status Date / Time No Known Allergies Allergy Verified 09/09/24 12:01 [No Known Allergies*] Review of Systems Sugical H&P ROS: Negative: Constitution, Cardiovascular, Respiratory, Neurological, Psychiatric, Hem-Onc, Allergic/Immunologic, Gastrointestinal, Genitourinary, Musculoskeletal, Integumentary, Endocrine and Eyes/Ears/Nose/Throat Exam Surgical H&P Exam: Normal: HEENT, Normal: Heart, Normal: Lungs, Normal: Extremities, Normal: Abdomen, Normal: Skin and Normal: Neurological Plan Diagnosis/Plan: Unchanged I have reviewed the history and physical and performed a pertinent physical examination on my patient. No changes have occurred unless specified. Time Spent With Patient Time: Total time managing care of this patient today ____ minutes.
[2024-09-23] MEDS: Lactated Ringers 1,000 ML 100 ML IVCONT (11:59)
--- NOTE | 2024-09-23 12:54 | P.OPN-COLO_ITS ---
Colonoscopy Operative Note Operative Note Date of Service: 09/23/24 Narrative: Operative Information Procedure Description: Colonoscopy Indication: abn imaging Anesthesia: MAC COLONOSCOPY Instrument: Olympus variable stiffness pediatric scope 190L Colonoscopy Monitoring: Vital signs and clinical assessment, continuous EKG monitoring, Pulse oximetry, Carbon Dioxide monitoring and blood pressure monitoring were done throughout the procedure. Colon withdrawal time was 12 minutes. Procedure: The patient was placed in the left lateral decubitis position and pre-procedure medications were administered. After a digital rectal examination of the ano-rectum, the video colonoscope was inserted into the rectum and advanced through the colon to the cecum/TI. The colonoscope was slowly withdrawn in a retrograde panoramic fashion and the colon mucosa was carefully examined including a retroflexed view of the rectum. Findings and interventions are described below. Procedure Difficulty: easy Findings: Terminal Ileum-normal Cecum:normal right sided retroflexion- normal Ascending Colon: normal Transverse Colon -normal Descending Colon:normal Sigmoid Colon: normal Rectum: Retroflexion with small internal hemorrhoids seen, grade I Anorectum - normal Intervention: none Colon preparation: [place] Bowel Preparation Scale Right colon; 2 Transverse colon: 2 Left colon; 2 (0 = Unprepared colon segment with mucosa not seen due to solid stool that cannot be cleared. 1 = Portion of mucosa of the colon segment seen, but other areas of the colon segment not well seen due to staining, residual stool and/or opaque liquid. 2 = Minor amount of residual staining, small fragments of stool and/or opaque liquid, but mucosa of colon segment seen well. 3 = Entire mucosa of colon segment seen well with no residual staining, small fragments of stool or opaque liquid) Impression and Post Procedure Diagnosis: internal hemorrhoids no masses seen Plan: High fiber diet leaflet Avoid straining at stool, epsom salts and sitz bath, anusol supps or cream Repeat Colonoscopy in 10 years or earlier if clinically indicated Above findings were reviewed with the patient and relevant handouts were provided if indicated.
[2024-09-23 12:59] VITALS: BP 125/71; PULSE 52; RESP 18; TEMP 36; O2SAT 100
[2024-09-23 13:14] VITALS: BP 134/77; PULSE 58; RESP 16; TEMP 36.1
== END 2024-09-23 13:48 | disposition home or self-care (01) ==
PROVIDERS: PCP Internal Medicine; Visit Provider Internal Medicine Gastroenterology
PROC: 0DJD8ZZ Inspection of Lower Intestinal Tract, Via Natural or Artificial Opening Endoscopic (ICD-10-PCS; CPT 45378; principal; 2024-09-23 14:10)
DX: R93.3 Abnormal findings on diagnostic imaging of other parts of digestive tract (principal); K58.9 Irritable bowel syndrome, unspecified; K64.8 Other hemorrhoids; K59.00 Constipation, unspecified; K21.9 Gastro-esophageal reflux disease without esophagitis; K29.70 Gastritis, unspecified, without bleeding; J45.909 Unspecified asthma, uncomplicated; R10.12 Left upper quadrant pain; E66.3 Overweight; Z68.29 Body mass index [BMI] 29.0-29.9, adult; Z98.890 Other specified postprocedural states
CPT/HCPCS: 45378; J2003; J2704

== ENCOUNTER → 2024-09-23 10:49 | Outpatient (BNV) | payer OTHER, SELFPAY | PROVIDERS: PCP Internal Medicine; Visit Provider Internal Medicine Gastroenterology | DX: R93.3 Abnormal findings on diagnostic imaging of other parts of digestive tract (principal); K58.9 Irritable bowel syndrome, unspecified; K64.0 First degree hemorrhoids | CPT/HCPCS: 45378 ==

== ENCOUNTER 2024-10-24 04:53 | Emergency (ER) | payer OTHER, SELFPAY ==
[2024-10-24] VITALS (7 sets, daily range): BP systolic 131–187; BP diastolic 77–107; PULSE 55–68; RESP 13–18; TEMP 36.6–36.7; O2SAT 98–100; BMI 31.3
--- NOTE | 2024-10-24 05:08 | PC.NURSE ---
Pt is a&ox4, no signs of distress. Pt denies pain at this time Pt reports dancing and feeling lightheaded and passing out. Pt denies headstrike. Pt reports having similar episode d/t low b/p but when she eats sugar she feels better. Plan of care ongoing.
--- NOTE | 2024-10-24 06:09 | ECG_ITS ---
Test Reason : SYNCOPE Blood Pressure : */* mmHG Vent. Rate : 55 BPM Atrial Rate : 55 BPM P-R Int : 166 ms QRS Dur : 86 ms QT Int : 420 ms P-R-T Axes : 39 11 23 degrees QTcB Int : 401 ms Sinus bradycardia Otherwise normal ECG When compared with ECG of 01-Jan-2024 18:22, No significant change was found Referred By: Emely Gonzales Electronically Signed By: Manav Mckeon
--- NOTE | 2024-10-24 06:19 | ED_ITS ---
HPI - Syncope General Chief Complaint: Syncope Stated Complaint: SEIZURE/FALL Time Seen by Provider: 10/24/24 06:10 Source: patient and EMS Mode of arrival: EMS Limitations: no limitations History of Present Illness ED Provider: Dr. Emely Gonzales HPI narrative: Patient comes to the emergency room complaining of syncopal episode. Patient states that she was at work, picking up stuff from the ground, not very heavy. Patient states that she was also dancing at the same time. Patient states that she suddenly started feeling lightheaded, patient was able to lower herself to the ground and passed out. The next thing that she remembers is the paramedics getting her into the ambulance. Patient denies any head strike, denies being on blood thinners. At this time patient denies any shortness of breath, no chest pain. Patient states that she has a mild posterior headache but not related to falling because she did not hit her head according to her. Related Data Home Medications ?Medication ?Instructions ?Recorded ?Confirmed acetaminophen 325 mg tablet 650 mg PO Q6H PRN Pain 03/03/22 09/21/24 ferrous sulfate 325 mg (65 mg 325 mg PO DAILY 09/07/22 09/21/24 iron) tablet,delayed release Previous Rx's ?Medication ?Instructions ?Recorded ibuprofen 600 mg tablet 600 mg PO Q8H PRN pain #20 tabs 11/29/22 albuterol sulfate 90 mcg/actuation 1 inh inhalation QID PRN shortness 12/14/22 aerosol inhaler (ProAir HFA) of breath or wheezing 30 days #8.5 grams [id number]-[id number] 1 cap PO QID #120 caps 12/02/23 24,000-76,000-120,000 unit capsule,delayed rel (Creon) polyethylene glycol 3350 17 17 g PO DAILY #510 grams 12/02/23 gram/dose oral powder (Miralax) cholecalciferol (vitamin D3) 25 25 mcg PO DAILY #90 caps 07/16/24 mcg (1,000 unit) capsule esomeprazole magnesium 20 mg 20 mg PO DAILY #30 caps 07/21/24 capsule,delayed release (Nexium) sennosides 8.6 mg tablet (Natural 17.2 mg (2 x 8.6 mg) PO BEDTIME 09/01/24 Senna Laxative) constipation #60 tabs sodium,potassium,mag sulfates 17.5 See Rx Instructions PO .COMPLEX 09/06/24 gram-3.13 gram-1.6 gram oral soln #354 mL (Suprep Bowel Prep Kit) Allergies Allergy/AdvReac Type Severity Reaction Status Date / Time No Known Allergies Allergy Verified 10/24/24 05:05 [No Known Allergies*] Review of Systems 2 Review of Systems: Constitutional : No Weight loss, No Fever, No Chills, No Night Sweats, No Fatigue, No Malaise ENT/Mouth : No Hearing loss, No Ear Pain, No Nasal Congestion, No Sinus Pain, No Hoarseness, No sore throat, No Rhinorrhea, No Swallowing Difficulty Eyes: No Eye Pain, No Swelling, No Redness, No Foreign Body, No Discharge, No Vision Changes Cardiovascular : No Chest Pain, No SOB, No Dyspnea on Exertion, No Orthopnea, No Edema, No Palpitations Respiratory : No Cough, No Sputum, No Wheezing, No Smoke Exposure, No Dyspnea Gastrointestinal : No Nausea, No Vomiting, No Diarrhea, No Constipation, No abdominal Pain, No Hematochezia, No Melena Genitourinary : no irregular bleeding, No Dysuria, No Urinary Frequency, No Hematuria, No Urinary Incontinence, No Urgency, No Flank Pain, No Urinary Flow Changes, No Hesitancy Musculoskeletal : No joint pain, No Myalgias, No Joint Swelling Skin : No Skin Lesions, No rash Neuro : No Weakness, No Numbness, No Paresthesias, complaining of a syncopal episode, mild posterior headache, Psych : No Anxiety/Panic, No Depression, No SI/HI/AH/VH, No Social Issues, Heme/Lymph: No Bruising, No Bleeding,No Lymphadenopathy Endocrine : No Polyuria, No Polydipsia, No Temperature Intolerance [facility] Past Medical History Medical History Constipation GERD without esophagitis Gastritis Asthma Overweight (BMI 25.0-29.9) ZHOU positive Varicose veins of bilateral lower extremities with pain Surgical History History of loop electrical excision procedure (LEEP) History of esophagogastroduodenoscopy (EGD) Hx of colonoscopy Hx of laparoscopy Status post laser ablation of incompetent vein H/O tubal ligation Hx of cholecystectomy (~2014) H/O gastric bypass (~2018) Family History Family History Father HTN (hypertension) Diabetes mellitus Mother HTN (hypertension) Diabetes mellitus Asthma Brother No problems noted. Brother No problems noted. Brother No problems noted. Brother No problems noted. Sister No problems noted. Daughter No problems noted. Son No problems noted. Son No problems noted. Paternal Aunt Breast cancer Family/Other Colon cancer Maternal Aunt Ovarian cancer Social History Social History Household Members: Spouse Housing: House Are you a primary child daycare worker to a significant other at home: No Do you presently have visiting nurse or other home services: No Alcohol intake: never Patient Tobacco Use Status: Never used Tobacco Smoked in Last 30 Days: No Second Hand Smoke Exposure: No Use of substances other than those prescribed or required for medical reasons: No Advance Directives: No Advance Directives Information Provided: Yes service: No Current occupational status: employed Cognitive needs: No Hearing needs: No Vision needs: No Physical Exam 2 Vital Signs: Vital Signs: Last Vital Signs Temp 97.8 F 10/24/24 06:10 Pulse 68 10/24/24 06:25 Resp 13 10/24/24 06:10 BP 178/98 H 10/24/24 06:25 Pulse Ox 98 10/24/24 06:10 O2 Del Method Room Air 10/24/24 06:10 BMI result Body Mass Index 31.3 Const: Other: Appearance: Alert. Oriented X3. No acute distress. Well-appearing, coherent, not postictal Eyes: Pupils equal, round and reactive to light. ENT: Pharynx normal. Neck: Normal inspection. Neck supple. No lymph nodes noted. No crepitus CVS: Normal heart rate and rhythm. Pulses normal. Normal S1 and S2 Respiratory: No respiratory distress. Breath sounds normal. No Wheezing. No rales Abdomen: Soft and nontender. No rigidity. No distention. Skin: Skin warm and dry. Normal skin color. Normal skin turgor. Extremities: No lower extremity edema. No Lacerations. No Rash Neuro: Oriented X 3. No motor deficit. No sensory deficit. Moving all extremities. No slurred speech. CN 2 through 12 grossly intact Psych: calm, cooperative, normal affect Course Course Course Narrative: EKG labs and orthostatic vitals pending Medications Administered Generic Name Dose Route Start Last Admin Trade Name Manoj PRN Reason Stop Dose Admin Sodium Chloride 1,000 mls @ 999 mls/hr 10/24/24 06:25 10/24/24 06:35 Ns IVCONT 10/24/24 07:25 999 mls/hr .Q1H1M ONE Administration Medical Decision Making Medical Decision Making [facility] Narrative: My interpretation of EKG: Normal sinus bradycardia, heart rate 55, no ST segment depression or elevation, nonspecific T-wave inversion in lead 3, QTC 401 Orthostatic vitals: Patient's blood pressure increased with standing. However, patient reported lightheadedness. Patient being hydrated with IV fluids. Patient admits that she does not do a good job at home drinking fluids. I discussed with the patient that she has a fairly elevated blood pressure in the 170s. Patient states that any time that she goes to a hospital or a doctor's office, her blood pressure significantly increases. Otherwise, when she checks it at other times, she is always normotensive Lactic is bag, within normal limits, unlikely that patient had a seizure. All other labs are pending pending, sign-out given to my colleague Dr. Taylor. Differential Diagnosis Differential Diagnoses: The differential diagnosis associated with the presentation includes (Syncope versus near-syncope, seizure) Lab Data 10/24/24 06:33 10/24/24 06:33 Labs: Lab Results 10/24/24 10/24/24 Range/Units 06:32 06:33 WBC 6.9 (4.8-10.8) X10*3/uL RBC 4.40 (4.20-5.50) X10*6/uL Hgb 11.7 L (12.0-16.0) g/dl Hct 35.9 L (37.0-47.0) % MCV 81.6 (80.0-98.0) fL MCH 26.6 L (27.0-33.0) pg MCHC 32.6 (31.0-35.0) g/dl RDW 15.0 (11.0-16.0) % Plt Count 234 (160-400) X10*3/uL MPV 10.0 (9.4-12.3) fL Immature Gran % (Auto) 0.3 (0.0-0.4) % Neut % (Auto) 64.3 (45-73) % Lymph % (Auto) 26.0 (20-40) % [place] % (Auto) 8.7 (2-11) % Eos % (Auto) 0.3 (0-4) % Baso % (Auto) 0.4 (0-2) % Lymph # (Auto) 1.8 (1.2-4.9) X10*3/uL [place] # (Auto) 0.6 (0.1-1.2) X10*3/uL Eos # (Auto) 0.0 (0.0-0.4) X10*3/uL Baso # (Auto) 0.0 (0.0-0.2) X10*3/uL Abs Immat Gran (auto) 0.02 (0.00-0.03) X10*3/uL Absolute Neuts (auto) 4.4 (2.0-8.3) x10*3/uL Absolute Nucleated RBC 0.000 (0.0-0.012) X10*3/uL Nucleated RBC % (auto) 0.0 (0.0-0.2) /100WBC Sodium 141 (135-145) mmol/L Potassium 3.8 (3.3-5.1) mmol/L Chloride 111 H (96-108) mmol/L Carbon Dioxide 26 (22-29) mmol/L Anion Gap 8 L (12-20) BUN 12 (9-16) mg/dL Creatinine 0.61 (0.5-1.4) mg/dL Estim Creat Clear Calc 100.0 Estimated GFR > 60 Random Glucose 95 (60-115) mg/dL Lactic Acid 0.7 (0.5-2.0) mmol/L Calcium 7.9 L D (8.4-10.2) mg/dL Total Bilirubin 0.3 (0.0-1.0) mg/dL Direct Bilirubin 0.1 (0.0-0.5) mg/dL AST 33 H (5-31) U/L ALT 21 (0-31) U/L Alkaline Phosphatase 62 (39-117) U/L Total Creatine Kinase 607 H (26-140) U/L Troponin I High Sens 4.4 D (<3.5-17.0) ng/L Total Protein 6.6 (6.5-8.0) g/dL Albumin 3.8 (3.5-5.0) g/dL Ethyl Alcohol < 10 mg/dL Discharge Plan Discharge Clinical Impression: Syncope Patient Disposition: Still a Patient Prescriptions: No Action esomeprazole magnesium [Nexium] 20 mg capsule,delayed release(DR/EC) 20 mg PO DAILY Qty: 30 4RF sodium,potassium,mag sulfates [Suprep Bowel Prep Kit] 17.5-3.13-1.6 gram recon soln See Rx Instructions PO .COMPLEX Qty: 354 0RF Rx Instructions: DILUTE; drink 1/2 at 6-8 pm and half at 11 PM- 1AM acetaminophen 325 mg Tablet 650 mg PO Q6H PRN (Reason: Pain) ibuprofen 600 mg tablet 600 mg PO Q8H PRN (Reason: pain) Qty: 20 0RF ferrous sulfate 325 mg (65 mg iron) tablet,delayed release (DR/EC) 325 mg PO DAILY albuterol sulfate [ProAir HFA] 90 mcg/actuation HFA aerosol inhaler 1 inh inhalation QID PRN (Reason: shortness of breath or wheezing) 30 Days Qty: 8.5 5RF Creon 24,000-76,000 -120,000 unit capsule,delayed release(DR/EC) 1 cap PO QID Qty: 120 5RF Rx Instructions: administer with meals and/or snacks polyethylene glycol 3350 [Miralax] 17 gram/dose powder 17 g PO DAILY Qty: 510 2RF cholecalciferol (vitamin D3) 25 mcg (1,000 unit) capsule 25 mcg PO DAILY Qty: 90 3RF sennosides [Natural Senna Laxative] 8.6 mg tablet 17.2 mg PO BEDTIME Qty: 60 3RF Print Language: [place]
[2024-10-24] MEDS: 0.9 % Sodium Chloride 1,000 ML 999 ML IVCONT (06:35)
[2024-10-24 06:38] LABS: MANUAL DIFF FLAG NO
--- NOTE | 2024-10-24 06:38 | PC.NURSE ---
Pt medicated per [facility] Plan of care ongoing.
[2024-10-24 06:39] LABS: Basophils Percent Auto 0.4 % (0-2); Eosinophils Percent Auto 0.3 % (0-4); Hematocrit 35.9 % (37.0-47.0); Hemoglobin 11.7 g/dl (12.0-16.0); Imm Gran Abs Auto 0.02 X10*3/uL (0.00-0.03); Imm Gran Pct Auto 0.3 % (0.0-0.4); Lymphocytes Absolute Auto 1.8 X10*3/uL (1.2-4.9); Mean Corpuscular HGB Conc 32.6 g/dl (31.0-35.0); Mean Corpuscular Hemoglobin 26.6 pg (27.0-33.0); Mean Corpuscular Volume 81.6 fL (80.0-98.0); Monocytes Absolute Auto 0.6 X10*3/uL (0.1-1.2); Monocytes Percent Auto 8.7 % (2-11); Neutrophils Absolute Auto 4.4 x10*3/uL (2.0-8.3); Neutrophils Percent Auto 64.3 % (45-73); Platelet Count 234 X10*3/uL (160-400); White Blood Count 6.9 X10*3/uL (4.8-10.8)
[2024-10-24 06:56] LABS: Lactic Acid 0.7 mmol/L (0.5-2.0)
[2024-10-24 07:03] LABS: Troponin-I High Sensitivity 4.4 ng/L (<3.5-17.0)
[2024-10-24 07:04] LABS: Alanine Aminotransferase 21 U/L (0-31); Albumin Level 3.8 g/dL (3.5-5.0); Alkaline Phosphatase 62 U/L (39-117); Anion Gap 8 (12-20); Aspartate Amino Transferase 33 U/L (5-31); Bilirubin Direct 0.1 mg/dL (0.0-0.5); Bilirubin Total 0.3 mg/dL (0.0-1.0); Blood Urea Nitrogen 12 mg/dL (9-16); Calcium 7.9 mg/dL (8.4-10.2); Carbon Dioxide 26 mmol/L (22-29); Chloride 111 mmol/L (96-108); Estimated Glomerular Filt Rate > 60; Ethanol < 10 mg/dL; Glucose Random 95 mg/dL (60-115); Potassium 3.8 mmol/L (3.3-5.1); Sodium 141 mmol/L (135-145); Total Protein 6.6 g/dL (6.5-8.0)
--- NOTE | 2024-10-24 07:47 | PC.NURSE ---
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 urine sample provided.
[2024-10-24 07:48] LABS: Appearance Urine Cloudy; Color Urine Yellow; Glucose Urine UA Negative (Negative); Leukocyte Esterase Urine Negative (Negative); Nitrite Urine Positive (Negative); Specific Gravity - Urine >= 1.030 (1.005-1.025); UMIC TRIGGER UACC YES; Urine Blood Negative (Negative); Urine Ketones Trace mg/dL (Negative); Urine Protein Negative (Neg-Trace)
[2024-10-24 07:53] LABS: Bacteria Urine 4+ (None Seen); Hyaline Casts Urine 0-2 /LPF (0-2); RBC Urine 0-2 /HPF (0-2); Squamous Epithelial Cell Urine 0-2 /HPF (0-2); UACC Culture Trigger YES; WBC Urine 0-5 /HPF (0-5)
[2024-10-24 07:57] LABS: Amphetamine Screen Urine Not Detected (Not Detect); Barbiturates, Urine Not Detected (Not Detect); Benzodiazepines Screen Urine Not Detected (Not Detect); Buprenorphine Scr Not Detected (Not Detect); Cannabinoid Screen Urine Not Detected (Not Detect); Cocaine Screen Urine Not Detected (Not Detect); Fentanyl, urine Not Detected (Not Detect); Methadone Screen, Urine Not Detected (Not Detect); Opiate Screen Urine Not Detected (Not Detect); Oxycodone Screen Urine Not Detected (Not Detect); Phencyclidine Screen Urine Not Detected (Not Detect)
[2024-10-24 08:57] LABS: Troponin-I High Sensitivity 4.8 ng/L (<3.5-17.0)
[2024-10-24] MEDS: Acetaminophen 325 MG TABLET 650 MG PO (09:42)
== END 2024-10-24 09:49 | disposition home or self-care (01) ==
PROVIDERS: Emergency Medicine; Emergency Provider Emergency Medicine; PCP Internal Medicine
DX: R55 Syncope and collapse (principal); R11.2 Nausea with vomiting, unspecified; R00.1 Bradycardia, unspecified; Z79.899 Other long term (current) drug therapy; Z51.81 Encounter for therapeutic drug level monitoring
CPT/HCPCS: 36415; 80048; 80076; 80307; 81001; 82550; 83605; 84484; 85025; 86850; 86900; 86901; 87086; 87088; 87186; 93005; 96360; 96361; 99284; 99285

== ENCOUNTER → 2024-10-24 06:09 | Outpatient (BNV) | payer OTHER, SELFPAY | PROVIDERS: Emergency Provider Emergency Medicine; PCP Internal Medicine; Visit Provider Internal Medicine Cardiovascular Disease | DX: R55 Syncope and collapse (principal) | CPT/HCPCS: 93010 ==

== ENCOUNTER 2024-10-27 09:50 | Outpatient (AMB) | payer OTHER, SELFPAY ==
[2024-10-27 09:59] VITALS: BP 146/108; PULSE 72; TEMP 36.6; O2SAT 99; BMI 29.7
--- NOTE | 2024-10-27 09:59 | AM.OFFWIN_ITS ---
Intake Vital Signs 10/27/24 09:59 Height 5 ft 1 in Weight 157 lb BMI 29.7 BP 146/108 H Blood Pressure Location Lt brachial Position Sitting Pulse 72 Pulse Source Pulse Oximeter Temp 97.9 F Temp Source Oral Pulse Oximetry (%) 99 Oxygen Delivery Method Room Air Intake Visit Reasons: EP-high blood pressure 162 over 85 Intake Note: Pt presents to the office today for c/o congestion, headache, bilateral ear pain x3 days. Pt states she went to the ED on 10/24/23 after she passed out. Patient Tobacco Use Status: Never used Tobacco Allergies No Known Allergies [No Known Allergies*] Allergy (Verified 10/27/24 10:02) HPI HPI Comments History of Present Illness Details History of Present Illness - The patient is a 54-year-old female pr esenting with headache, elevated blood pressure, and follow-up for acute urinary tract infection treatment. - The patient experienced a significant episode on the , resulting in shaking and temporary loss of awareness, leading to a hospital consultation where she was diagnosed with an acute urinary tract infection. - Blood pressure readings have been elev ated, particularly noted as high during the hospital visit. Systolic 140's to 170's, consistently as recorded by patient. - The current treatment for the urinary tract infection includes cefdinir, initiated after emergency department evaluation. - Blood pressure control measures includ e advice on a reduced sodium diet, given the patient's systemic readings of hypertension without significant symptomatic dizziness or changes. Physical Exam General: Cooperative, healthy appearing, comfortable, no acute distress and well developed Orientation: Patient oriented x3 Limitations: No limitations Head: Normal to inspection Ears: Hearing grossly normal bilaterally Nose: Normal external nose present Face and sinus: Normal facial exam Eyes: Appearance normal, both eyes and all related structures Neck: Normal visual inspection and Yes full ROM Respiratory: Normal respiratory effort and able to speak in complete sentences. Skin: No rashes or lesions noted Neuro: Patient oriented x3 Extremities: Normal to inspection [facility] Medical History Constipation GERD without esophagitis Gastritis Asthma Overweight (BMI 25.0-29.9) ZHOU positive Varicose veins of bilateral lower extremities with pain Surgical History History of loop electrical excision procedure (LEEP) History of esophagogastroduodenoscopy (EGD) Hx of colonoscopy Hx of laparoscopy Status post laser ablation of incompetent vein H/O tubal ligation Hx of cholecystectomy (~2015) H/O gastric bypass (~2018) Family History Father HTN (hypertension) Diabetes mellitus Mother HTN (hypertension) Diabetes mellitus Asthma Brother No problems noted. Brother No problems noted. Brother No problems noted. Brother No problems noted. Sister No problems noted. Daughter No problems noted. Son No problems noted. Son No problems noted. Paternal Aunt Breast cancer Family/Other Colon cancer Maternal Aunt Ovarian cancer Social History Household Members: Spouse Housing: House Are you a primary career development manager to a significant other at home: No Do you presently have visiting nurse or other home services: No Alcohol intake: never Patient Tobacco Use Status: Never used Tobacco Second Hand Smoke Exposure: No service: No Current occupational status: employed Cognitive needs: No Hearing needs: No Vision needs: No Female Reproductive History Menstrual Age of Menarche: 14 Review of Systems Const All systems reviewed & are unremarkable except as noted in HPI and below Physical Exam Vital Signs: Last Vital Signs Temp 97.9 F 10/27/24 09:59 Pulse 72 10/27/24 09:59 BP 146/108 H 10/27/24 09:59 Pulse Ox 99 10/27/24 09:59 Oxygen Delivery Method Room Air 10/27/24 09:59 BMI result Body Mass Index 29.7 Assessment & Plan Assessment & Plan (1) Elevated blood pressure reading without diagnosis of hypertension: Code(s): R03.0 - Elevated blood-pressure reading, without diagnosis of hypertension Plan: Cefdinir has been commenced for the management of the acute urinary tract infection, and the patient is advised to complete the course. Blood pressure management involves continuing home monitoring and reducing dietary sodium reduction as initial steps until the primary care consultation. The patient is instructed to carry a detailed blood pressure log when visiting her primary care provider for further evaluation and management options, which may include antihypertensive therapy. Should symptoms like headache or dizziness intensify, the patient is advised to seek prompt emergency care. I was able to secure an appt for the pt with her PCP office 10/28 3:30pm with Abdi Melissa NP. Patient was informed and verbally consented to the use of an ambient scribe for clinic note documentation during this visit. Coding Level of Care Code Est Pt Level 3 (16224) Diagnoses Elevated blood pressure reading without diagnosis of hypertension R03.0
== END 2024-10-27 10:22 | disposition home or self-care (01) ==
PROVIDERS: PCP Internal Medicine; Visit Provider Physician Assistant
DX: R03.0 Elevated blood-pressure reading, without diagnosis of hypertension (principal)

== ENCOUNTER → 2024-10-27 09:50 | Outpatient (BNVA) | payer OTHER, SELFPAY | PROVIDERS: PCP Internal Medicine; Visit Provider Physician Assistant | DX: R03.0 Elevated blood-pressure reading, without diagnosis of hypertension (principal) | CPT/HCPCS: 99212 ==

== ENCOUNTER 2024-10-28 15:16 | Outpatient (AMB) | payer OTHER, SELFPAY ==
[2024-10-28 15:42] VITALS: BP 134/80; PULSE 79; TEMP 36.6; O2SAT 99; BMI 29.5
--- NOTE | 2024-10-28 15:42 | A.OFFPC_ITS ---
Vital Signs 10/28/24 15:42 Height 5 ft 1 in Weight 156 lb 2 oz BMI 29.5 BP 134/80 Blood Pressure Location Lt brachial Position Sitting Pulse 79 Pulse Source Pulse Oximeter Temp 97.8 F Temp Source Oral Pulse Oximetry (%) 99 Oxygen Delivery Method Room Air Intake Visit Reasons: elevated BP 140-170 systolic Entry Level Receptionist Required: No Accompanied by: Self / Same As Patient Allergies No Known Allergies [No Known Allergies*] Allergy (Verified 10/28/24 15:51) Medication List - Last Reconciled 10/28/24 by URMILA Ferris acetaminophen 650 mg PO Q6H PRN albuterol sulfate 90 mcg/actuation (ProAir HFA) 1 inh inhalation QID PRN 30 days cefuroxime axetil 250 mg PO BID 7 days cholecalciferol (vitamin D3) 25 mcg PO DAILY esomeprazole magnesium (Nexium) 20 mg PO DAILY ferrous sulfate 325 mg PO DAILY ibuprofen 600 mg PO Q8H PRN knwgod-woosvtnb-bygzkjk 24,000-76,000 -120,000 unit (Creon) 1 cap PO QID polyethylene glycol 3350 (Miralax) 17 grams PO DAILY sennosides (Natural Senna Laxative) 17.2 mg (2 x 8.6 mg) PO BEDTIME sodium,potassium,mag sulfates 17.5-3.13-1.6 gram (Suprep Bowel Prep Kit) DILUTE; drink 1/2 at 6-8 pm and half at 11 PM- 1AM Tobacco use date assessed: 10/28/24 Dental Screening Dental Screen Date: 10/28/24 Did you have a dental visit in the last 12 months?: Yes Did you have a dental problem in the last 6 months where you did not have access to dental care?: No Was dental information given to patient?: Patient has dentist HPI elevated BP 140-170 systolic HPI Details Patient is a 54-year-old female with past medical history of depression, endocrine pancreatic insufficiency, uterine myoma, varicose vein of leg, anemia, GERD, constipation, gastritis, overweight, positive ZHOU Patient was last seen in the office by Dr. Lan on 02/25/2024 Patient is presenting today for follow up elevated blood pressure readings The patient reports that on Saturday, she felt sick and passed out at work, and allegedly was shaking on the floor. She was worked up in the ED where she was diagnosed with acute urinary tract infection On 10/27/2024 the patient went into urgent care with complaints of headache elevated blood pressure Patient is presenting today for follow up of her blood pressure blood pressure. ekg SB in the hospital at home her blood pressures sbp in the 140s-170s bp normal in the office at 134/80. continue to monitor bp reinforced low salt diet return in 4 weeks for bp monitoring. she denies CP, SOB, and heart palpitation Headache: ongoing frontal and occipital headaches. sharp pain, 7/10, sometimes the light affect her eyes she gets into a bad mood when present tx: tylenol for the head without relief. reports not drinking enough water. 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 Seems like a combination of dehydration, lack of sleep and energy drinks that c ould be trigger the patient headaches she reports that she can't nsaids- hurt her stomach. dizziness: for awhile, at work she has to stop and sit because she dizziness. The reports that she does not drink water adn has been drinking energy drinks because she work at night. The patient does not have have good sleep hygiene as well. nasal congestion, reports it is her allergy acting up. flonase inhaler ordered [facility] Medical History Constipation GERD without esophagitis Gastritis Asthma Overweight (BMI 25.0-29.9) ZHOU positive Varicose veins of bilateral lower extremities with pain Surgical History History of loop electrical excision procedure (LEEP) History of esophagogastroduodenoscopy (EGD) Hx of colonoscopy Hx of laparoscopy Status post laser ablation of incompetent vein H/O tubal ligation Hx of cholecystectomy (~2015) H/O gastric bypass (~2018) Family History Father HTN (hypertension) Diabetes mellitus Mother HTN (hypertension) Diabetes mellitus Asthma Brother No problems noted. Brother No problems noted. Brother No problems noted. Brother No problems noted. Sister No problems noted. Daughter No problems noted. Son No problems noted. Son No problems noted. Paternal Aunt Breast cancer Family/Other Colon cancer Maternal Aunt Ovarian cancer Social History Household Members: Spouse Housing: House Are you a primary home care provider to a significant other at home: No Do you presently have visiting nurse or other home services: No Alcohol intake: never Patient Tobacco Use Status: Never used Tobacco e-Cigarette/Vaping Use: Never Used Second Hand Smoke Exposure: No service: No Current occupational status: employed Cognitive needs: No Hearing needs: No Vision needs: No Female Reproductive History Menstrual Age of Menarche: 14 Questionnaire PHQ-9 Over the last 2 weeks, how often have you been bothered by any of the following problems? 1. Little interest or pleasure in doing things: not at all 2. Feeling down, depressed, or hopeless: not at all 3. Trouble falling or staying asleep, or sleeping too much: not at all 4. Feeling tired or having little energy: not at all 5. Poor appetite or overeating: not at all 6. Feeling bad about yourself - or that you are a failure or have let yourself or your family down: not at all 7. Trouble concentrating on things, such as reading the newspaper or watching television: not at all 8. Moving or speaking so slowly that other people could have noticed. Or the opposite - being so fidgety or restless that you have been moving around a lot more than usual: not at all 9. Thoughts that you would be better off or of hurting yourself in some way: not at all Total score: 0 Depression Screening Interpretation: Negative Depression Screening Done: Yes 02156 - PHQ-9 Billing: Yes Source: Developed by Drs. Merritt Vargas, Nicole Lgaunas, Natan Ceron and colleagues, with an educational ludmila from [employer]. Thrive Questionnaire Date Thrive assessed: 10/28/24 I am a: Patient What is your living situation today?: I have a steady place to live Within the past 12 months, did the food you bought not last and you didn't have the money to get more?: Never true Within the past 12 months, did you worry whether your food would run out before you got money to buy more?: Never true Do you have trouble paying for medicines?: No Do you have trouble getting transportation to medical appointments?: No Do you have trouble paying your heating and electricity bill?: No Do you have trouble taking care of your child, family member or friend?: No Do you have trouble with day-to-day activities such as bathing, preparing meals, shopping, managing finances, etc.?: No Are you currently unemployed and looking for a job?: No Are you interested in more education?: No Please select the resources that you would like help with: None Currently or been in a relationship where the following occur: No concerns reported THRIVE Score: 0 AUDIT C Alcohol Use Questionnaire (AUDIT-C) 1. How often do you have a drink containing alcohol?: Never 3. How often do you have six or more drinks on one occasion?: Never Total Score: 0 Score Reviewed/Action Taken: Yes LUISITO-7 AMB Questionnaire LUISITO-7 Date LUISITO - 7 assessed: 10/28/24 Feeling nervous, anxious, or on edge: 0 = Not at all Not being able to stop or control worryin = Not at all Worrying too much about different things: 0 = Not at all Trouble relaxin = Not at all Being so restless that it is hard to sit still: 0 = Not at all Becoming easily annoyed or irritable: 0 = Not at all Feeling afraid as if something awful might happen: 0 = Not at all Total LUISITO-7 score (0-4 normal; 5-9 mild; 10-14 moderate; 15-21 severe): 0 Source: Developed by Drs. Merritt Vargas, Nicole Lagunas, Natan Ceron and colleagues, with an educational ludmila from [employer]. LUISITO-7 Assessment Billing LUISITO-7 Assessment Tool: LUISITO-7 Assessment 25283 Review of Systems Const Details: Denies chills, Denies fatigue, Denies fever(s), Denies headache(s) and Denies weakness HEENT Denies change in vision, + recurrent dizziness, + recurrent headache(s), Denies hearing loss, + nasal congestion, Denies sinus pain, Denies sinus pressure and Denies sore throat Card Denies chest pain, + occasional lightheadedness, Denies dyspnea and Denies other (palpitations) Resp Denies cough, Denies dyspnea and Denies wheezing GI Denies abdominal pain, Denies melena, Denies hematochezia, Denies change in bowel habits, Denies dyspepsia and Denies nausea Denies hematuria and Denies dysuria Musc Denies abnormal gait, Denies myalgias, Denies arthralgias, Denies numbness and Denies tingling Skin/Breast Denies rash, Denies unusual bruising and Denies wounds Neuro Denies abnormal gait, Denies memory loss, Denies numbness, Denies Sensory deficit (Neuro), Denies tingling and Denies weakness Psych Denies anxiety, Denies depression and Denies memory loss Endo Denies cold intolerance, Denies fatigue, Denies heat intolerance, Denies polydipsia and Denies polyuria Efrem/Lymph Denies easy bleeding and Denies easy bruising Aller/Immun Denies wheezing Physical exam (Primary Care) Vital Signs: Last Vital Signs Temp 97.8 F 10/28/24 15:42 Pulse 79 10/28/24 15:42 BP 134/80 10/28/24 15:42 Pulse Ox 99 10/28/24 15:42 Oxygen Delivery Method Room Air 10/28/24 15:42 BMI result Body Mass Index 29.5 Tobacco/Smoking Status: Tobacco use Status Tobacco use date assessed 10/28/24 10/28/24 15:48 Patient Tobacco Use Status Never used Tobacco 10/28/24 15:48 e-Cigarette/Vaping Use Never Used 10/28/24 15:48 PHQ-9: PHQ-9 Score PHQ-9: Total score 0 10/29/24 03:03 Depression Screening Interpretation: Negative Thrive Assessment: Date of Thrive Assessment Date Thrive assessed 10/28/24 10/28/24 15:48 Currently or been in a relationship where the following occur: No concerns reported Const Other: General: no acute distress, well developed, alert and awake Nutritional Appearance: well nourished Orientation/consciousness: patient oriented x3 HENMT Head: Yes normocephalic and Yes atraumatic Ears: hearing grossly normal bilaterally and TM's normal bilaterally General nose exam: Normal external nose present and other: +erythematous in bilateral nasal passage Mouth: Normal oral and palatal mucosa present and moist mucous membranes Teeth and gingiva: dentition normal Throat: Yes oropharynx normal Eyes Pupils: Equal, round and reactive pupils present and Pupil accommodation reflex normal EOM: EOMs intact bilaterally Neck Neck: Yes normal visual inspection, Yes no lymphadenopathy and Yes trachea midline Thyroid: Thyroid normal Carotids: no bruits Lymphatic: no lymphadenopathy noted Chest Chest palpation & inspection: normal inspection of the chest Resp Effort & Inspection: normal respiratory effort Auscultation: clear to auscultation bilaterally Cardio Rate: regular rate Rhythm: regular rhythm Heart sounds: S1 normal heart sound present, S2 normal heart sound present, no gallops, no murmurs and no rubs GI Palpation (GI): No Abdominal aortic bruit present, Soft to palpation, nontender, No hepatosplenomegaly present and No Rebound tenderness present Auscultation: normal bowel sounds General: Yes no CVA tenderness Back/Spine/Pelvis Back: no CVA tenderness Cervical Spine: cervical ROM normal and No Cervical spine tenderness Thoracic/Lumbar Spine: thoraco-lumbar ROM normal, No pain with thoraco-lumbar ROM, No thoracic spinal tenderness and No lumbar spinal tenderness Skin General: warm and dry. Normal skin color. Normal skin turgor Lesions: no lesions Rashes: no rashes Trauma: no lacerations or abrasions Wounds: no wounds Nails: normal Neuro General: patient oriented x3, gait normal Cranial nerves: Yes Equal, round and reactive pupils present Cognition (Neuro): normal cognition Gait exam (Neuro): Normal gait present Motor exam (neuro): 5/5 motor strength present throughout Sensory Exam: No Sensory deficit (Neuro) Deep tendon reflexes (DTR's): Right patellar reflex intensity grade: 2+ and Left patellar reflex intensity grade: 2+ Extrem General: Yes normal to inspection, No edema and No calf tenderness Psych Appearance: grossly normal Affect: normal affect Attitude: cooperative Thought process: Normal thought process present Coding Level of Care Code Est Pt Level 4 (39983) Diagnoses Dizziness R42 Elevated blood pressure reading without diagnosis of hypertension R03.0 Nasal congestion R09.81 Nonintractable headache, unspecified chronicity pattern, unspecified headache type R51.9 Headache type: unspecified Intractability: not intractable Headache chronicity pattern: unspecified pattern Additional Codes LUISITO-7 Assessment Billing - LUISITO-7 Assessment Tool: LUISITO-7 Assessment 03840 ([id number]) PHQ-9 - 78915 - PHQ-9 Billing: Yes ([id number]) Time Spent (min) 33 Assessment & Plan Assessment & Plan (1) Dizziness: Code(s): R42 - Dizziness and giddiness Category: Medical Plan: The patient reports recurrent dizziness especially after bending over sometimes she has a sit-down Multifactorial: Patient reports that she does not drink water. She has been working night shifts and her sleeps are interrupted when the daytime. Reports drinking a lot of energy drinks. The patient also has a history of anemia. Reports that she is not taking her iron tablet due to constipation. Discussed with the patient that dehydration, lack of sleep, and energy drinks in all trigger her symptoms Encouraged patient to work in these lifestyle modifications. (2) Elevated blood pressure reading without diagnosis of hypertension: Code(s): R03.0 - Elevated blood-pressure reading, without diagnosis of hypertension Category: Medical Plan: Reports blood pressure between the 140s to 170s systolically at home Blood pressure is 134/80 in the office today Reinforced low-sodium diet We will have patient follow up in 4 weeks for another blood pressure check (3) Nasal congestion: Code(s): R09.81 - Nasal congestion Category: Medical Plan: Patient reports nasal congestion Flonase nose spray ordered (4) Headache: Code(s): R51.9 - Headache, unspecified Category: Medical Qualifiers: Headache type: unspecified Intractability: not intractable Headache chronicity pattern: unspecified pattern Qualified Code(s): R51.9 - Headache, unspecified Plan: magnesium 400 mg during the daytime (the patient sleeps during the day) and B2 400mg daily Encouraged fluid hydration continues Tylenol prn: the patient reports that she is not able to tolerate NSAIDs. Plan The patient to f/u in 4 weeks for blood pressure. Will follow on the patient dizziness and headaches at that time as well. Medications: New fluticasone propionate 50 mcg/actuation administer into each nostril 1 spray intranasal BID 16 grams 2RF magnesium oxide 400 mg PO DAILY 30 tabs 3RF riboflavin (vitamin B2) 400 mg PO DAILY 30 tabs 3RF docusate sodium (Colace) 100 mg PO BID 30 caps 3RF
== END 2024-10-28 16:26 | disposition home or self-care (01) ==
PROVIDERS: PCP Internal Medicine
DX: R42 Dizziness and giddiness (principal); R03.0 Elevated blood-pressure reading, without diagnosis of hypertension; R09.81 Nasal congestion; R51.9 Headache, unspecified

== ENCOUNTER → 2024-10-28 15:16 | Outpatient (BNVA) | payer OTHER, SELFPAY | PROVIDERS: PCP Internal Medicine | DX: R42 Dizziness and giddiness (principal); R03.0 Elevated blood-pressure reading, without diagnosis of hypertension; R09.81 Nasal congestion; R51.9 Headache, unspecified | CPT/HCPCS: 96127; 99212 ==

== ENCOUNTER 2024-11-27 14:00 | Outpatient (AMB) | payer OTHER, SELFPAY ==
--- NOTE | 2024-11-27 14:11 | A.OFFVIS_ITS ---
Vital Signs 11/27/24 14:18 Height 5 ft 1 in Weight 158 lb 11.725 oz BMI 30.0 BP 148/82 H Blood Pressure Location Rt brachial Position Sitting Pulse 54 Pulse Source Pulse Oximeter Pulse Oximetry (%) 100 Oxygen Delivery Method Room Air Intake Visit Reasons: 3 month follow up Intake Note: ESTABLISHED PATIENT for mgmt of IBS and abd pain. Chief Complaint; No GI concerns per pt. Sx well controlled. Regional Economist Required: No Accompanied by: Self / Same As Patient Allergies No Known Allergies [No Known Allergies*] Allergy (Verified 10/28/24 15:51) HPI HPI 3 month follow up: Details: LAST VISIT Exocrine pancreatic insufficiency GERD without esophagitis IBS (irritable bowel syndrome) Abdominal pain, LUQ (left upper quadrant) Postprandial abdominal bloating Plan Colonoscopy scheduled for the . Discussed with patient the importance of good bowel prep day before procedure as well as clear liquid diet. What to expect before during and after procedure discussed with patient. Evaluation of the splenic flexure to see if there is any lesion or any protrusion within the bowel. CT scan was done with oral and IV contrast. Patient will follow-up in the office after the procedure. She will call us if she will have any GI concerning symptoms. She is agreeable to this plan and verbalizes understanding of instructions. She was given the opportunity to ask questions and all questions answered. ? COLONOSCOPY Findings: Terminal Ileum-normal Cecum:normal right sided retroflexion- normal Ascending Colon: normal Transverse Colon -normal Descending Colon:normal Sigmoid Colon: normal Rectum: Retroflexion with small internal hemorrhoids seen, grade I Anorectum - normal Intervention: none Colon preparation: [place] Bowel Preparation Scale Right colon; 2 Transverse colon: 2 Left colon; 2 (0 = Unprepared colon segment with mucosa not seen due to solid stool that cannot be cleared. 1 = Portion of mucosa of the colon segment seen, but other areas of the colon segment not well seen due to staining, residual stool and/or opaque liquid. 2 = Minor amount of residual staining, small fragments of stool and/or opaque liquid, but mucosa of colon segment seen well. 3 = Entire mucosa of colon segment seen well with no residual staining, small fragments of stool or opaque liquid) Impression and Post Procedure Diagnosis: internal hemorrhoids no masses seen Plan: High fiber diet leaflet Avoid straining at stool, epsom salts and sitz bath, anusol supps or cream Repeat Colonoscopy in 10 years or earlier if clinically indicated TODAY'S VISIT Patient is here today for follow-up. She had colonoscopy about couple months ago and had no polyps. Patient denies any trouble with anesthesia or procedure itself. Patient reports that she is been feeling fine. Currently she is taking Nexium in the morning and her symptoms of acid reflux are suppressed. Patient is taking senna as prescribed. Moves her bowels without any issues. Patient denies any melena, hematochezia, unintentional weight loss or ribbon like stools. Denies any dyspepsia, dysphagia or odynophagia. Patient denies any other GI concerning symptoms PFSH Medical History Constipation GERD without esophagitis Gastritis Asthma Overweight (BMI 25.0-29.9) ZHOU positive Varicose veins of bilateral lower extremities with pain Surgical History History of loop electrical excision procedure (LEEP) History of esophagogastroduodenoscopy (EGD) Hx of colonoscopy Hx of laparoscopy Status post laser ablation of incompetent vein H/O tubal ligation Hx of cholecystectomy (~2014) H/O gastric bypass (~2018) Family History Father HTN (hypertension) Diabetes mellitus Mother HTN (hypertension) Diabetes mellitus Asthma Brother No problems noted. Brother No problems noted. Brother No problems noted. Brother No problems noted. Sister No problems noted. Daughter No problems noted. Son No problems noted. Son No problems noted. Paternal Aunt Breast cancer Family/Other Colon cancer Maternal Aunt Ovarian cancer Social History Household Members: Spouse Housing: House Are you a primary director of career services to a significant other at home: No Do you presently have visiting nurse or other home services: No Alcohol intake: never Patient Tobacco Use Status: Never used Tobacco e-Cigarette/Vaping Use: Never Used Second Hand Smoke Exposure: No service: No Current occupational status: employed Cognitive needs: No Hearing needs: No Vision needs: No Female Reproductive History Menstrual Age of Menarche: 14 Review of Systems Const Denies weight gain and Denies weight loss ENT Reports no additional complaints, Denies dysphagia and Denies odynophagia Card Reports no additional complaints Resp Reports no additional complaints GI Denies abdominal pain, Denies belching, Denies melena, Denies bloating, Denies change in bowel habits, Denies dysphagia, Denies excessive flatus, Denies dyspepsia, Denies heartburn, Denies diarrhea, Denies loose stools, Denies nausea, Denies odynophagia and Denies vomiting Musc Reports no additional complaints Neuro Reports no additional complaints Psych Reports no additional complaints Endo Reports no additional complaints Physical Exam Vital Signs: Last Vital Signs Pulse 54 11/27/24 14:18 BP 148/82 H 11/27/24 14:18 Pulse Ox 100 11/27/24 14:18 Oxygen Delivery Method Room Air 11/27/24 14:18 BMI result Body Mass Index 30.0 Const General: healthy appearing and no acute distress Nutritional Appearance: obese Orientation/consciousness: patient oriented x3 Resp Effort & Inspection: normal respiratory effort, able to speak in complete sentences, no tracheal deviation and symmetric chest movement Auscultation: clear to auscultation bilaterally Cardio Rate: regular rate GI Inspection: Yes normal to inspection, No distended and Yes obesity Palpation (GI): Soft to palpation, not firm, Tenderness to palpation present (GI) in the LUQ and No hepatosplenomegaly present Auscultation: Hyperactive bowel sounds present General: Yes no CVA tenderness Back/Spine/Pelvis Back: no CVA tenderness Skin General skin exam: elasticity normal, turgor normal and dry skin Neuro General: patient oriented x3 Psych Appearance: grossly normal Mental Status: mental status grossly normal Assessment & Plan Assessment & Plan (1) Exocrine pancreatic insufficiency: Code(s): K86.81 - Exocrine pancreatic insufficiency Category: Medical (2) GERD without esophagitis: Code(s): K21.9 - Gastro-esophageal reflux disease without esophagitis Category: Medical (3) IBS (irritable bowel syndrome): Code(s): K58.9 - Irritable bowel syndrome, unspecified Qualifiers: Irritable bowel syndrome type: without diarrhea Qualified Code(s): K58.9 - Irritable bowel syndrome, unspecified (4) Abdominal pain, LUQ (left upper quadrant): Code(s): R10.12 - Left upper quadrant pain (5) Postprandial abdominal bloating: Code(s): R14.0 - Abdominal distension (gaseous) (6) Status post colonoscopy: Code(s): Z98.890 - Other specified postprocedural states Plan Patient will continue current treatment with PPI. Avoid dietary triggers and late night snacking. She has been doing quite well. Continue senna daily. Increase fluid intake and activity to promote better bowel motility. Patient can continue taking Creon with meals. Tolerating well. Patient will follow-up in 3 months, sooner on as needed basis. She is agreeable to this plan and verbalizes understanding of instructions. She was given the opportunity to ask questions and all questions answered. Thank you for allowing me to participate in her care Coding Level of Care Code Est Pt Level 3 (83457) Diagnoses Exocrine pancreatic insufficiency K86.81 GERD without esophagitis K21.9 Irritable bowel syndrome without diarrhea K58.9 Irritable bowel syndrome type: without diarrhea Abdominal pain, LUQ (left upper quadrant) R10.12 Postprandial abdominal bloating R14.0 Status post colonoscopy Z98.890 Time Spent (min) 30 Comment 20 minutes spent with patient and additional 10 minutes spent reviewing her records
[2024-11-27 14:18] VITALS: BP 148/82; PULSE 54; O2SAT 100
== END 2024-11-27 14:24 | disposition home or self-care (01) ==
PROVIDERS: PCP Internal Medicine; Visit Provider Nurse Practitioner Family
DX: K86.81 Exocrine pancreatic insufficiency (principal); K21.9 Gastro-esophageal reflux disease without esophagitis; K58.9 Irritable bowel syndrome, unspecified; R10.12 Left upper quadrant pain; R14.0 Abdominal distension (gaseous); Z98.890 Other specified postprocedural states
CPT/HCPCS: 99213

== ENCOUNTER → 2024-11-27 14:00 | Outpatient (BNVA) | payer OTHER, SELFPAY | PROVIDERS: PCP Internal Medicine; Visit Provider Nurse Practitioner Family | DX: K58.9 Irritable bowel syndrome, unspecified (principal); R10.12 Left upper quadrant pain; K86.81 Exocrine pancreatic insufficiency; K21.9 Gastro-esophageal reflux disease without esophagitis; R14.0 Abdominal distension (gaseous); Z98.890 Other specified postprocedural states | CPT/HCPCS: 99212 ==

== ENCOUNTER 2024-11-30 09:34 | Outpatient (AMB) | payer OTHER, SELFPAY ==
[2024-11-30 09:38] VITALS: BP 122/80; PULSE 75; O2SAT 98; BMI 29.7
--- NOTE | 2024-11-30 09:38 | MHC.PC.OV ---
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 Required: No Accompanied by: Self / Same As Patient Allergies No Known Allergies [No Known Allergies*] Allergy (Verified 11/30/24 09:45) Medication List - Last Reconciled 11/30/24 by URMILA Ferris acetaminophen 650 mg PO Q6H PRN albuterol sulfate 90 mcg/actuation (ProAir HFA) 1 inh inhalation QID PRN 30 days cholecalciferol (vitamin D3) 25 mcg PO DAILY docusate sodium (Colace) 100 mg PO BID esomeprazole magnesium (Nexium) 20 mg PO DAILY ferrous sulfate 325 mg PO DAILY fluticasone propionate 50 mcg/actuation 1 spray intranasal BID ibuprofen 600 mg PO Q8H PRN [id number] 24,000-76,000 -120,000 unit (Creon) 1 cap PO QID magnesium oxide 400 mg PO DAILY polyethylene glycol 3350 (Miralax) 17 grams PO DAILY riboflavin (vitamin B2) 400 mg PO DAILY sennosides (Natural Senna Laxative) 17.2 mg (2 x 8.6 mg) PO BEDTIME sodium,potassium,mag sulfates 17.5-3.13-1.6 gram (Suprep Bowel Prep Kit) DILUTE; drink 1/2 at 6-8 pm and half at 11 PM- 1AM Tobacco use date assessed: 11/30/24 Dental Screening Dental Screen Date: 11/30/24 Did you have a dental visit in the last 12 months?: Yes Did you have a dental problem in the last 6 months where you did not have access to dental care?: No Was dental information given to patient?: Patient has dentist HPI blood pressure/headache HPI Details Patient is a 54-year-old female with past medical history of depression, endocrine pancreatic insufficiency, uterine myoma, varicose vein of leg, anemia, GERD, constipation, gastritis, overweight, positive ZHOU Patient is presenting today for follow up elevated blood pressure readings The patient reports that she still gets dizziness on and off. On exam: The patient was noted to have opaque TM's with effusion-Will order Augmentin bid x7 days Patient reports that her nasal congestion continues Reports that she has been using the Flonase. We will add loratadine 10 mg daily p.r.n. On 10/27/2024 the patient went into urgent care with complaints of headache elevated blood pressure Patient is presenting today for follow up of her blood pressure Patient reports only drinking one coffee in the mornings now-blood pressure normal in office Discussed with the patient continue to monitor blood pressure closely and to pay attention to what she is doing when her blood pressure readings are high reports that when her blood pressure is high she feels a headache home readings systolic 118-171 diastolic 72-101 reports that when she was in [place], her bp was always high The patient reports that her high bp resolved after having gastric bypass surgery Her bp has consistently been normal in the office reinforced low salt diet return in 4 weeks for bp monitoring. she denies CP, SOB, and heart palpitation Headache: ongoing frontal and occipital headaches. sharp pain, 7/10, sometimes the light affect her eyes she gets into a bad mood when present tx: Tylenol for the head without relief. reports not drinking enough water. 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 Seems like a combination of dehydration, lack of sleep and energy drinks that could be trigger the patient headaches she reports that she can't naiads- hurt her stomach. -----Patient reports that she has been cutting down on the caffeine and is only drinking 1 cup of coffee a day Reports she is only getting headaches in the mornings after working all night [facility] Medical History (Reviewed 11/27/24 @ 14:11 by Armando Nolasco [facility]) Constipation GERD without esophagitis Gastritis Asthma Overweight (BMI 25.0-29.9) ZHOU positive Varicose veins of bilateral lower extremities with pain Surgical History History of loop electrical excision procedure (LEEP) History of esophagogastroduodenoscopy (EGD) Hx of colonoscopy Hx of laparoscopy Status post laser ablation of incompetent vein H/O tubal ligation Hx of cholecystectomy (~2014) H/O gastric bypass (~2018) Family History Father HTN (hypertension) Diabetes mellitus Mother HTN (hypertension) Diabetes mellitus Asthma Brother No problems noted. Brother No problems noted. Brother No problems noted. Brother No problems noted. Sister No problems noted. Daughter No problems noted. Son No problems noted. Son No problems noted. Paternal Aunt Breast cancer Family/Other Colon cancer Maternal Aunt Ovarian cancer Social History Household Members: Spouse Housing: House Are you a primary career development director to a significant other at home: No Do you presently have visiting nurse or other home services: No Alcohol intake: never Patient Tobacco Use Status: Never used Tobacco e-Cigarette/Vaping Use: Never Used Second Hand Smoke Exposure: No service: No Current occupational status: employed Cognitive needs: No Hearing needs: No Vision needs: No Female Reproductive History Menstrual Age of Menarche: 14 Questionnaire PHQ-9 Over the last 2 weeks, how often have you been bothered by any of the following problems? 1. Little interest or pleasure in doing things: not at all 2. Feeling down, depressed, or hopeless: not at all 3. Trouble falling or staying asleep, or sleeping too much: not at all 4. Feeling tired or having little energy: not at all 5. Poor appetite or overeating: not at all 6. Feeling bad about yourself - or that you are a failure or have let yourself or your family down: not at all 7. Trouble concentrating on things, such as reading the newspaper or watching television: not at all 8. Moving or speaking so slowly that other people could have noticed. Or the opposite - being so fidgety or restless that you have been moving around a lot more than usual: not at all 9. Thoughts that you would be better off or of hurting yourself in some way: not at all Total score: 0 Depression Screening Interpretation: Negative Depression Screening Done: Yes 63754 - PHQ-9 Billing: Yes Source: Developed by Drs. Merritt Vargas, Nicole Lagunas, Natan Ceron and colleagues, with an educational ludmila from [employer]. Thrive Questionnaire Date Thrive assessed: 11/30/24 I am a: Patient What is your living situation today?: I have a steady place to live Within the past 12 months, did the food you bought not last and you didn't have the money to get more?: Never true Within the past 12 months, did you worry whether your food would run out before you got money to buy more?: Never true Do you have trouble paying for medicines?: No Do you have trouble getting transportation to medical appointments?: No Do you have trouble paying your heating and electricity bill?: No Do you have trouble taking care of your child, family member or friend?: No Do you have trouble with day-to-day activities such as bathing, preparing meals, shopping, managing finances, etc.?: No Are you currently unemployed and looking for a job?: No Are you interested in more education?: No Please select the resources that you would like help with: None Currently or been in a relationship where the following occur: No concerns reported THRIVE Score: 0 AUDIT C Alcohol Use Questionnaire (AUDIT-C) 1. How often do you have a drink containing alcohol?: Never 3. How often do you have six or more drinks on one occasion?: Never Total Score: 0 Score Reviewed/Action Taken: Yes LUISITO-7 AMB Questionnaire LUISITO-7 Date LUISITO - 7 assessed: 11/30/24 Feeling nervous, anxious, or on edge: 0 = Not at all Not being able to stop or control worryin = Not at all Worrying too much about different things: 0 = Not at all Trouble relaxin = Not at all Being so restless that it is hard to sit still: 0 = Not at all Becoming easily annoyed or irritable: 0 = Not at all Feeling afraid as if something awful might happen: 0 = Not at all Total LUISITO-7 score (0-4 normal; 5-9 mild; 10-14 moderate; 15-21 severe): 0 Source: Developed by Drs. Merritt Vargas, Natan Lara and colleagues, with an educational ludmila from [employer]. LUISITO-7 Assessment Billing LUISITO-7 Assessment Tool: LUISITO-7 Assessment 17105 Review of Systems Const Details: Denies chills, Denies fatigue, Denies fever(s), +headache(s) and Denies weakness HEENT Denies change in vision, + dizziness, Denies headache(s), Denies hearing loss, Denies nasal congestion, Denies sinus pain, Denies sinus pressure and Denies sore throat Card Denies chest pain, Denies lightheadedness, Denies dyspnea and Denies other (palpitations) Resp Denies cough, Denies dyspnea and Denies wheezing GI Denies abdominal pain, Denies melena, Denies hematochezia, Denies change in bowel habits, Denies dyspepsia and Denies nausea Denies hematuria and Denies dysuria Musc Denies abnormal gait, Denies myalgias, Denies arthralgias, Denies numbness and Denies tingling Skin/Breast Denies rash, Denies unusual bruising and Denies wounds Neuro Denies abnormal gait, +dizziness, Denies headache(s), Denies memory loss, Denies numbness, Denies Sensory deficit (Neuro), Denies tingling and Denies weakness Psych Denies anxiety, Denies depression and Denies memory loss Endo Denies cold intolerance, Denies fatigue, Denies heat intolerance, Denies polydipsia and Denies polyuria Efrem/Lymph Denies easy bleeding and Denies easy bruising Aller/Immun Denies wheezing Physical exam (Primary Care) Vital Signs: Last Vital Signs Pulse 75 11/30/24 09:38 BP 124/86 11/30/24 09:44 Pulse Ox 98 11/30/24 09:38 Oxygen Delivery Method Room Air 11/30/24 09:38 BMI result Body Mass Index 29.7 Tobacco/Smoking Status: Tobacco use Status Tobacco use date assessed 11/30/24 11/30/24 09:39 Patient Tobacco Use Status Never used Tobacco 11/30/24 09:39 e-Cigarette/Vaping Use Never Used 11/30/24 09:39 PHQ-9: PHQ-9 Score PHQ-9: Total score 0 11/30/24 09:43 Depression Screening Interpretation: Negative Thrive Assessment: Date of Thrive Assessment Date Thrive assessed 11/30/24 11/30/24 09:39 Currently or been in a relationship where the following occur: No concerns reported Const Other: General: no acute distress, well developed, alert and awake Nutritional Appearance: well nourished Orientation/consciousness: patient oriented x3 [facility] Head: Yes normocephalic and Yes atraumatic Ears: hearing grossly normal bilaterally and bilateral TMs opaque and effusion present. Right ear worse than the left General nose exam: Normal external nose present and Normal nares present Mouth: Normal oral and palatal mucosa present and moist mucous Teeth and gingiva: dentition normal Throat: Yes oropharynx normal Eyes Pupils: Equal, round and reactive pupils present and Pupil accommodation reflex normal EOM: EOMs intact bilaterally Neck Neck: Yes normal visual inspection, Yes no lymphadenopathy and Yes trachea midline Thyroid: Thyroid normal Carotids: no bruits Lymphatic: no lymphadenopathy noted Chest Chest palpation & inspection: normal inspection of the chest Resp Effort & Inspection: normal respiratory effort Auscultation: clear to auscultation bilaterally Cardio Rate: regular rate Rhythm: regular rhythm Heart sounds: S1 normal heart sound present, S2 normal heart sound present, no gallops, no murmurs and no rubs Bruits: no abdominal aortic bruits and no carotid bruits GI Palpation (GI): Abdomen is soft and nontender to palpation Auscultation: normal bowel sounds General: Yes no CVA tenderness Back/Spine/Pelvis Back: no CVA tenderness Cervical Spine: cervical ROM normal and No Cervical spine tenderness Thoracic/Lumbar Spine: No lumbar tenderness Skin General: warm and dry. Normal skin color. Normal skin turgor Lesions: no lesions Rashes: no rashes Trauma: no lacerations or abrasions Wounds: no wounds Nails: normal Neuro General: patient oriented x3, gait normal and CN's II-XI intact bilaterally Cranial nerves: Yes Equal, round and reactive pupils present Cognition (Neuro): normal cognition Gait exam (Neuro): Normal gait present Motor exam (neuro): 5/5 motor strength present throughout Sensory Exam: No Sensory deficit (Neuro) Deep tendon reflexes (DTR's): Right patellar reflex intensity grade: 2+ and Left patellar reflex intensity grade: 2+ Extrem General: Yes normal to inspection, No edema and No calf tenderness Psych Appearance: grossly normal Affect: normal affect Attitude: cooperative Thought process: Normal thought process present Coding Level of Care Code Est Pt Level 4 (52483) Diagnoses Dizziness R42 Elevated blood pressure reading without diagnosis of hypertension R03.0 Nasal congestion R09.81 Nonintractable headache, unspecified chronicity pattern, unspecified headache type R51.9 Headache type: unspecified Headache chronicity pattern: unspecified pattern Intractability: not intractable Additional Codes LUISITO-7 Assessment Billing - LUISITO-7 Assessment Tool: ULISITO-7 Assessment 76292 ([id number]) PHQ-9 - 41470 - PHQ-9 Billing: Yes ([id number]) Time Spent (min) 36 Assessment & Plan Assessment & Plan (1) Dizziness: Code(s): R42 - Dizziness and giddiness Category: Medical Plan: The patient reports recurrent dizziness especially after bending over sometimes she has a sit-down Multifactorial: Patient reports that she does not drink water. She has been working night shifts and her sleeps are interrupted when the daytime. Reports drinking a lot of energy drinks. The patient also has a history of anemia. Reports that she is not taking her iron tablet due to constipation. Discussed with the patient that dehydration, lack of sleep, and energy drinks in all trigger her symptoms Encouraged patient to work in these lifestyle modifications. ----The patient reports that she has been cutting back on her coffee intake. She is only drinking 1 cup a day Bilateral TMs noted to be opaque in with effusion, right worse than left Augmentin b.i.d. times 10 days ordered (2) Elevated blood pressure reading without diagnosis of hypertension: Code(s): R03.0 - Elevated blood-pressure reading, without diagnosis of hypertension Category: Medical Plan: Reports blood pressure between the 140s to 170s systolically at home Blood pressure within normal limits in the office today Reinforced low-sodium diet We will have patient follow up in 4 weeks for another blood pressure check Discussed with patient to pay close attention to what she is doing when her blood pressure readings are elevated (3) Nasal congestion: Code(s): R09.81 - Nasal congestion Category: Medical Plan: Patient reports nasal congestion Flonase nose spray ordered (4) Headache: Code(s): R51.9 - Headache, unspecified Category: Medical Qualifiers: Headache type: unspecified Headache chronicity pattern: unspecified pattern Intractability: not intractable Qualified Code(s): R51.9 - Headache, unspecified Plan: magnesium 400 mg during the daytime (the patient sleeps during the day) and B2 400mg daily Encouraged fluid hydration continues Tylenol prn: the patient reports that she is not able to tolerate NSAIDs. The patient reports that this has been getting better and she is only having headaches in the mornings after working all night This seems to be consistent with sleep deprivation We will continue to monitor Plan The patient to f/u in 4 weeks for blood pressure. Will follow on the patient dizziness and headaches at that time as well. Medications: New amoxicillin-pot clavulanate 500-125 mg (Augmentin) 1 tab PO BID 7 days 14 tabs 0RF H65.90 - Unspecified nonsuppurative otitis media, unspecified ear loratadine (Allergy Relief (loratadine)) 10 mg PO DAILY PRN 30 tabs 1RF allergy symptoms amoxicillin-pot clavulanate 500-125 mg (Augmentin) 1 tab PO BID 10 days 20 tabs 0RF H65.90 - Unspecified nonsuppurative otitis media, unspecified ear
[2024-11-30 09:44] VITALS: BP 124/86
== END 2024-11-30 10:16 | disposition home or self-care (01) ==
PROVIDERS: PCP Internal Medicine
DX: R42 Dizziness and giddiness (principal); R03.0 Elevated blood-pressure reading, without diagnosis of hypertension; R09.81 Nasal congestion; R51.9 Headache, unspecified

== ENCOUNTER → 2024-11-30 09:34 | Outpatient (BNVA) | payer OTHER, SELFPAY | PROVIDERS: PCP Internal Medicine | DX: R42 Dizziness and giddiness (principal); R03.0 Elevated blood-pressure reading, without diagnosis of hypertension; R09.81 Nasal congestion; R51.9 Headache, unspecified | CPT/HCPCS: 96127; 99212 ==

== ENCOUNTER 2024-12-28 09:37 | Outpatient (AMB) | payer OTHER, SELFPAY ==
--- NOTE | 2024-12-28 09:39 | A.OFFPC_ITS ---
Vital Signs 12/28/24 09:40 Height 5 ft 1 in Weight 157 lb 2 oz BMI 29.7 BP 130/70 Blood Pressure Location Lt brachial Position Sitting Pulse 51 Pulse Source Pulse Oximeter Temp 97.1 F Temp Source Temporal Artery Scan Pulse Oximetry (%) 96 Oxygen Delivery Method Room Air Intake Visit Reasons: HTN/dizziness Intake Note: Patient is here to follow up on HTN, Dizziness. Windows Admin Required: No Food Storeroom Clerk: Not Required per policy Accompanied by: Self / Same As Patient Allergies No Known Allergies [No Known Allergies*] Allergy (Verified 12/28/24 09:43) Medication List - Last Reconciled 12/28/24 by URMILA Ferris acetaminophen 650 mg PO Q6H PRN albuterol sulfate 90 mcg/actuation (ProAir HFA) 1 inh inhalation QID PRN 30 days cholecalciferol (vitamin D3) 25 mcg PO DAILY docusate sodium (Colace) 100 mg PO BID esomeprazole magnesium (Nexium) 20 mg PO DAILY ferrous sulfate 325 mg PO DAILY fluticasone propionate 50 mcg/actuation 1 spray intranasal BID ibuprofen 600 mg PO Q8H PRN [id number] 24,000-76,000 -120,000 unit (Creon) 1 cap PO QID loratadine 10 mg PO DAILY magnesium oxide 400 mg PO DAILY polyethylene glycol 3350 (Miralax) 17 grams PO DAILY riboflavin (vitamin B2) 400 mg PO DAILY sennosides (Natural Senna Laxative) 17.2 mg (2 x 8.6 mg) PO BEDTIME sodium,potassium,mag sulfates 17.5-3.13-1.6 gram (Suprep Bowel Prep Kit) DILUTE; drink 1/2 at 6-8 pm and half at 11 PM- 1AM Tobacco use date assessed: 12/28/24 Dental Screening Dental Screen Date: 11/30/24 HPI HTN/dizziness HPI Details The patient is a 54 year old female presenting for follow up appt. Reports ongoing dizziness, headaches and high blood pressures. Headache: Reports that her headaches are on and off-reports that this time she thinks that is because slept for almost thirteen hours this time around but either way her headaches has been on and off. Reports intermittently the light and sounds bother her will put in a referral for neurology Dizziness: reports that she is still gets dizziness time but have slowed down significantly Reports that she is experiencing ringing in her right ear, reports using ear plugs at her job because of the noise of the machine bothers her ears. right ears is bulging-The patient was already treated for ear infection on last visit. Will send the patient to PT for vestibular therapy and refer her to ENT HTN: Reports that he blood pressure has been ok at home. BP within goal in office, reinforced low-sodium diet and increasing fluid hydration We will continue to monitor left palm- slightly discolored, reports that this area started a week ago. Reports that she does not remember injuring the area. Reports picking up bins/trays at work. The area appears bruise/it is semi-firm, discussed with patient that we will continue to monitor the area and if the area is still present on her follow up appt-we will order a xray [facility] Medical History Constipation GERD without esophagitis Gastritis Asthma Overweight (BMI 25.0-29.9) ZHOU positive Varicose veins of bilateral lower extremities with pain Surgical History History of loop electrical excision procedure (LEEP) History of esophagogastroduodenoscopy (EGD) Hx of colonoscopy Hx of laparoscopy Status post laser ablation of incompetent vein H/O tubal ligation Hx of cholecystectomy (~2014) H/O gastric bypass (~2018) Family History Father HTN (hypertension) Diabetes mellitus Mother HTN (hypertension) Diabetes mellitus Asthma Brother No problems noted. Brother No problems noted. Brother No problems noted. Brother No problems noted. Sister No problems noted. Daughter No problems noted. Son No problems noted. Son No problems noted. Paternal Aunt Breast cancer Family/Other Colon cancer Maternal Aunt Ovarian cancer Social History Household Members: Spouse Housing: House Are you a primary field care coordinator to a significant other at home: No Do you presently have visiting nurse or other home services: No Alcohol intake: never Patient Tobacco Use Status: Never used Tobacco e-Cigarette/Vaping Use: Never Used Second Hand Smoke Exposure: No service: No Current occupational status: employed Cognitive needs: No Hearing needs: No Vision needs: No Female Reproductive History Menstrual Age of Menarche: 14 Questionnaire Thrive Questionnaire Date Thrive assessed: 11/30/24 LUISITO-7 AMB Questionnaire LUISITO-7 Date LUISITO - 7 assessed: 11/30/24 Source: Developed by Drs. Merritt Vargas, Nicole Lagunas, Natan Ceron and colleagues, with an educational ludmila from [employer]. Review of Systems Const Reports headache(s) (Intermittent) Eyes Denies loss of vision ENT Denies vertigo, Reports dizziness (Ongoing intermittently), Reports headache(s) (Intermittent), Reports tinnitus (Right ear) and Denies sore throat Card Denies chest pain, Denies leg edema and Denies lightheadedness Resp Denies cough, Denies hemoptysis and Denies wheezing GI Denies abdominal pain, Denies melena, Denies constipation, Denies diarrhea and Denies vomiting Denies urinary frequency, Denies dysuria and Denies urinary urgency Musc Denies arthralgias, Denies joint swelling, Denies numbness and Denies tingling Neuro Denies Abnormal speech present, Denies behavioral changes, Denies vertigo, Reports dizziness (Ongoing intermittently), Reports headache(s) (Intermittent), Denies loss of vision, Denies memory loss, Denies numbness and Denies tingling Psych Denies anxiety, Denies behavioral changes, Denies depression, Denies memory loss and Denies panic attacks Efrem/Lymph Denies easy bleeding and Denies easy bruising Aller/Immun Denies wheezing Physical exam (Primary Care) Vital Signs: Last Vital Signs Temp 97.1 F 12/28/24 09:40 Pulse 51 12/28/24 09:40 BP 130/70 12/28/24 09:40 Pulse Ox 96 12/28/24 09:40 Oxygen Delivery Method Room Air 12/28/24 09:40 BMI result Body Mass Index 29.7 Tobacco/Smoking Status: Tobacco use Status Tobacco use date assessed 12/28/24 12/28/24 09:45 Patient Tobacco Use Status Never used Tobacco 12/28/24 09:45 e-Cigarette/Vaping Use Never Used 12/28/24 09:45 Thrive Assessment: Date of Thrive Assessment Date Thrive assessed 11/30/24 12/28/24 09:45 Const General: healthy appearing, no acute distress, alert and awake Nutritional Appearance: well nourished Orientation/consciousness: oriented to person, oriented to place and oriented to time HENMT Ears: TM normal on the left and TM abnormal (The patient was already treated for infection) bulging General nose exam: Normal nasal mucous membranes and turbinates present Face and sinus: No sinus tenderness Eyes Conjunctivae: conjunctivae normal Sclerae: sclerae normal Pupils: Equal, round and reactive pupils present Neck Neck: Yes no lymphadenopathy and Yes no JVD Thyroid: Thyroid normal Carotids: no bruits Resp Effort & Inspection: normal respiratory effort and not tachypneic Auscultation: no crackles, no rales, no rhonchi and no wheezes Cardio Rate: regular rate Rhythm: regular rhythm Heart sounds: no murmurs and normal S1 and S2 GI Palpation (GI): Soft to palpation, nontender, no hepatomegaly and no splenomegaly Auscultation: normal bowel sounds General: Yes no CVA tenderness Back/Spine/Pelvis Back: no CVA tenderness Skin General skin exam: no rashes or lesions noted and dry skin Neuro General: oriented to person, oriented to place and oriented to time Cranial nerves: Yes Equal, round and reactive pupils present Speech: No Abnormal speech present Gait exam (Neuro): Normal gait present Motor exam (neuro): 5/5 motor strength present throughout and no tremor noted Romberg Test: Negative Extrem Right upper extremity: full ROM Left upper extremity: full ROM Right lower extremity: full ROM; no edema Left lower extremity: full ROM; no edema Psych Mental Status: mental status grossly normal Speech and movement: Normal speech and movement present Affect: normal affect Attitude: cooperative Thought process: Normal thought process present Coding Level of Care Code Est Pt Level 4 (21699) Diagnoses Nonintractable headache, unspecified chronicity pattern, unspecified headache type R51.9 Headache type: unspecified Headache chronicity pattern: unspecified pattern Intractability: not intractable Dizziness R42 Elevated blood pressure reading without diagnosis of hypertension R03.0 Tinnitus of right ear H93.11 Localized swelling, mass, or lump of left upper extremity R22.32 Laterality: left Time Spent (min) 37 Assessment & Plan Assessment & Plan (1) Headache: Code(s): R51.9 - Headache, unspecified Category: Medical Qualifiers: Headache type: unspecified Headache chronicity pattern: unspecified pattern Intractability: not intractable Qualified Code(s): R51.9 - Headache, unspecified Plan: Ongoing headaches, unable to tolerate ibuprofen due to GI upset. Has been using Tylenol p.r.n. with not much relief. Magnesium 400 mg and vitamin B2 400 mg ordered on previous visit. Patient continues to complain of headache-even after increasing fluids that like she was asked to in the past. Will refer the patient to neurology for evaluation (2) Dizziness: Code(s): R42 - Dizziness and giddiness Category: Medical Plan: This was thought to be due to dehydration and lack of sleep on previous visit. 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 The patient had increased her fluid intake cut down on caffeine and has been trying to rest more. Reports that her symptoms are less, nevertheless she is still complaining of dizziness intermittently. On a previous visit the patient was noted to have an ear infection and was placed on antibiotics. Patient has residual symptoms of ringing in the right ear. Right ear appears bulging compared to left, present cone of light in both. We will send the patient for PT for vestibular therapy along with referring her to ENT (3) Elevated blood pressure reading without diagnosis of hypertension: Code(s): R03.0 - Elevated blood-pressure reading, without diagnosis of hypertension Category: Medical Plan: Ongoing blood pressure monitoring. The patient was told when she went to an urgent care that she had high blood pressure. Blood pressure has been stable with the each office visit. Reinforced low-sodium diet (4) Tinnitus of right ear: Code(s): H93.11 - Tinnitus, right ear Category: Medical Plan: The patient was treated for bilateral ear infection on her last visit. She is presenting today with ringing in her right ear only. Right ear bulging compared to left but both TMs have cone of light present. We will put in a PT eval for vestibular therapy and refer the patient to ENT as well. (5) Localized swelling, mass and lump, unspecified upper limb: Code(s): R22.30 - Localized swelling, mass and lump, unspecified upper limb Category: Medical Qualifiers: Laterality: left Qualified Code(s): R22.32 - Localized swelling, mass and lump, left upper limb Plan: Left hand volar area with small raised/discolored/semi-firm mildly tender area. The patient reports that she does not remember injuring the area. She does report picking things up at work but reports that she does wear gloves while doing so. Discussed with the patient that the area looks bruised and we should monitor it for a little longer. If the area continues- we will do an x-ray of the hand. Orders: Orders PT Evaluation and Treatment Today H93.11 - Tinnitus, right ear, R42 - Dizziness and giddiness Referrals Neurology Referral R51.9 - Headache, unspecified Ear/Nose/Throat Referral H93.11 - Tinnitus, right ear, R42 - Dizziness and giddiness
[2024-12-28 09:40] VITALS: BP 130/70; PULSE 51; TEMP 36.2; O2SAT 96; BMI 29.7
== END 2024-12-28 10:09 | disposition home or self-care (01) ==
LOC: HO.HMCH 09:37
PROVIDERS: PCP Internal Medicine
DX: R51.9 Headache, unspecified (principal); R42 Dizziness and giddiness; R03.0 Elevated blood-pressure reading, without diagnosis of hypertension; H93.11 Tinnitus, right ear; R22.32 Localized swelling, mass and lump, left upper limb

== ENCOUNTER → 2024-12-28 09:37 | Outpatient (BNVA) | payer OTHER, SELFPAY | PROVIDERS: PCP Internal Medicine | DX: R51.9 Headache, unspecified (principal); R42 Dizziness and giddiness; R03.0 Elevated blood-pressure reading, without diagnosis of hypertension; H93.11 Tinnitus, right ear; R22.32 Localized swelling, mass and lump, left upper limb | CPT/HCPCS: 99212 ==

== ENCOUNTER 2025-01-13 15:58 | Outpatient (AMB) | payer OTHER, SELFPAY ==
[2025-01-13 16:20] VITALS: BP 130/82; PULSE 78; RESP 16; TEMP 36.9; O2SAT 99; BMI 29.9
--- NOTE | 2025-01-13 16:20 | MHC.PC.OV ---
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 Accompanied by: Self / Same As Patient Allergies No Known Allergies [No Known Allergies*] Allergy (Verified 01/13/25 16:33) Medication List - Last Reconciled 01/13/25 by URMILA Ferris acetaminophen 650 mg PO Q6H PRN albuterol sulfate 90 mcg/actuation (ProAir HFA) 1 inh inhalation QID PRN 30 days cholecalciferol (vitamin D3) 25 mcg PO DAILY docusate sodium (Colace) 100 mg PO BID esomeprazole magnesium (Nexium) 20 mg PO DAILY ferrous sulfate 325 mg PO DAILY fluticasone propionate 50 mcg/actuation 1 spray intranasal BID ibuprofen 600 mg PO Q8H PRN pvrazt-[id number] 24,000-76,000 -120,000 unit (Creon) 1 cap PO QID loratadine 10 mg PO DAILY magnesium oxide 400 mg PO DAILY polyethylene glycol 3350 (Miralax) 17 grams PO DAILY PRN riboflavin (vitamin B2) 400 mg PO DAILY sennosides (Natural Senna Laxative) 17.2 mg (2 x 8.6 mg) PO BEDTIME Tobacco use date assessed: 01/13/25 Dental Screening Dental Screen Date: 01/13/25 Did you have a dental visit in the last 12 months?: Yes Did you have a dental problem in the last 6 months where you did not have access to dental care?: No Was dental information given to patient?: Patient has dentist HPI Depression Eval HPI Details The patient is a 54-year-old female who is presenting for evaluation for depression Patient reports that she has been struggling mentally for 2 months now and has been keeping this to herself Reports that in the past his similar situation happened to her while she was in [place] Patient reports that she has not taken any medication for this before The patient reports that she was at work and could not stop crying and she was unable to explain why she was crying This reports that her boss brought her to to give her time off until she speak to her professional an is at a good place to return to her Patient denies any new life changes. She does endorse having a lot on her plate and needs to talk to someone to get some of the stress off her shoulders She denies shortness of breath, chest pain, heart palpitation, she intermittently get dizzy at baseline but no increase in this symptom PFSH Medical History Constipation GERD without esophagitis Gastritis Asthma Overweight (BMI 25.0-29.9) ZHOU positive Varicose veins of bilateral lower extremities with pain Surgical History History of loop electrical excision procedure (LEEP) History of esophagogastroduodenoscopy (EGD) Hx of colonoscopy Hx of laparoscopy Status post laser ablation of incompetent vein H/O tubal ligation Hx of cholecystectomy (~2014) H/O gastric bypass (~2018) Family History Father HTN (hypertension) Diabetes mellitus Mother HTN (hypertension) Diabetes mellitus Asthma Brother No problems noted. Brother No problems noted. Brother No problems noted. Brother No problems noted. Sister No problems noted. Daughter No problems noted. Son No problems noted. Son No problems noted. Paternal Aunt Breast cancer Family/Other Colon cancer Maternal Aunt Ovarian cancer Social History Household Members: Spouse Housing: House Are you a primary youth care worker to a significant other at home: No Do you presently have visiting nurse or other home services: No Alcohol intake: never Patient Tobacco Use Status: Never used Tobacco e-Cigarette/Vaping Use: Never Used Second Hand Smoke Exposure: No service: No Current occupational status: employed Cognitive needs: No Hearing needs: No Vision needs: Yes (Glasses) Female Reproductive History Menstrual Age of Menarche: 14 Questionnaire PHQ-9 Over the last 2 weeks, how often have you been bothered by any of the following problems? 1. Little interest or pleasure in doing things: nearly every day 2. Feeling down, depressed, or hopeless: nearly every day 3. Trouble falling or staying asleep, or sleeping too much: nearly every day 4. Feeling tired or having little energy: more than half the days 5. Poor appetite or overeating: nearly every day 6. Feeling bad about yourself - or that you are a failure or have let yourself or your family down: not at all 7. Trouble concentrating on things, such as reading the newspaper or watching television: nearly every day 8. Moving or speaking so slowly that other people could have noticed. Or the opposite - being so fidgety or restless that you have been moving around a lot more than usual: not at all 9. Thoughts that you would be better off or of hurting yourself in some way: not at all Total score: 17 Depression Screening Interpretation: Positive Depression Screening Done: Yes 82395 - PHQ-9 Billing: Yes Source: Developed by Drs. Merritt Vargas, Nicole Lagunas, Natan Ceron and colleagues, with an educational ludmila from [employer]. Thrive Questionnaire Date Thrive assessed: 01/13/25 I am a: Patient What is your living situation today?: I have a steady place to live Within the past 12 months, did the food you bought not last and you didn't have the money to get more?: Never true Within the past 12 months, did you worry whether your food would run out before you got money to buy more?: Never true Do you have trouble paying for medicines?: No Do you have trouble getting transportation to medical appointments?: No Do you have trouble paying your heating and electricity bill?: No Do you have trouble taking care of your child, family member or friend?: No Do you have trouble with day-to-day activities such as bathing, preparing meals, shopping, managing finances, etc.?: No Are you currently unemployed and looking for a job?: No Are you interested in more education?: No Please select the resources that you would like help with: None Currently or been in a relationship where the following occur: No concerns reported THRIVE Score: 0 AUDIT C Alcohol Use Questionnaire (AUDIT-C) 1. How often do you have a drink containing alcohol?: Never 3. How often do you have six or more drinks on one occasion?: Never Total Score: 0 Score Reviewed/Action Taken: Yes LUISITO-7 AMB Questionnaire LUISITO-7 Date LUISITO - 7 assessed: 11/30/24 Source: Developed by Drs. Merritt Vargas, Nicole Lagunas, Natan Ceron and colleagues, with an educational ludmila from [employer]. Review of Systems Const Reports headache(s) Eyes Denies loss of vision ENT Denies vertigo, Reports dizziness, Reports headache(s) and Denies sore throat Card Denies chest pain, Denies leg edema and Denies lightheadedness Resp Denies cough and Denies hemoptysis Neuro Denies Abnormal speech present, Denies behavioral changes, Denies vertigo, Reports dizziness, Reports headache(s), Denies loss of vision and Denies memory loss Psych Denies anxiety, Denies behavioral changes, Reports depression, Denies memory loss and Denies panic attacks Physical exam (Primary Care) Vital Signs: Last Vital Signs Temp 98.4 F 01/13/25 16:20 Pulse 78 01/13/25 16:20 Resp 16 01/13/25 16:20 BP 130/82 01/13/25 16:20 Pulse Ox 99 01/13/25 16:20 Oxygen Delivery Method Room Air 01/13/25 16:20 BMI result Body Mass Index 29.9 Tobacco/Smoking Status: Tobacco use Status Tobacco use date assessed 01/13/25 01/13/25 16:30 Patient Tobacco Use Status Never used Tobacco 01/13/25 16:30 e-Cigarette/Vaping Use Never Used 01/13/25 16:30 PHQ-9: PHQ-9 Score PHQ-9: Total score 17 01/14/25 09:50 Depression Screening Interpretation: Positive Thrive Assessment: Date of Thrive Assessment Date Thrive assessed 01/13/25 01/13/25 16:30 Currently or been in a relationship where the following occur: No concerns reported Const General: healthy appearing, no acute distress, alert and awake Nutritional Appearance: well nourished Orientation/consciousness: oriented to person, oriented to place and oriented to time HENMT Ears: external ears normal General nose exam: Normal external nose present Eyes Conjunctivae: conjunctivae normal Sclerae: sclerae normal Pupils: Equal, round and reactive pupils present Neck Neck: Yes no lymphadenopathy and Yes no JVD Thyroid: Thyroid normal Carotids: no bruits Resp Effort & Inspection: normal respiratory effort and not tachypneic Auscultation: no crackles, no rales, no rhonchi and no wheezes Cardio Rate: regular rate Rhythm: regular rhythm Heart sounds: no murmurs and normal S1 and S2 Neuro General: oriented to person, oriented to place and oriented to time Cranial nerves: Yes Equal, round and reactive pupils present Speech: No Abnormal speech present Gait exam (Neuro): Normal gait present Motor exam (neuro): no tremor noted Psych Mental Status: mental status grossly normal Speech and movement: Normal speech and movement present Affect: Sad affect present Attitude: cooperative Thought process: Normal thought process present Coding Level of Care Code Est Pt Level 4 (07211) Diagnoses Other depression F32.89 Depression Type: other depression Additional Codes PHQ-9 - 16857 - PHQ-9 Billing: Yes ([id number]) Time Spent (min) 45 Assessment & Plan Assessment & Plan (1) Depression: Code(s): F32.A - Depression, unspecified Category: Medical Qualifiers: Depression Type: other depression Qualified Code(s): F32.89 - Other specified depressive episodes Plan: Patient reports that she has been struggling mentally for 2 months now and has been keeping this to herself Reports that in the past his similar situation happened to her while she was in [place] Patient reports that she has not taken any medication for this before The patient reports that she was at work and could not stop crying and she was unable to explain why she was crying This reports that her boss brought her to to give her time off until she speak to her professional an is at a good place to return to her Spoke extensively with the patient. The patient reports that she just needs to unload the weight off her shoulders. Denies SI/HI. She is currently not interested in being started on the medication and just need to speak to a therapist, probably a [place]awian-speaking therapist so she will be able to express herself comfortably The patient was connected with the Community navigator. Spoke with Yuki Davila who offers to connect with the patient and attempt to offer her some help until she is connected to a therapist. Orders: Orders Complete Blood Count Auto Diff 01/13/25 URMILA Ferris D50.0 - Iron deficiency anemia secondary to blood loss (chronic), D50.9 - Iron deficiency anemia, unspecified, E66.3 - Overweight, H81.10 - Benign paroxysmal vertigo, unspecified ear, H93.11 - Tinnitus, right ear, J45.20 - Mild intermittent asthma, uncomplicated, K21.9 - Gastro-esophageal reflux disease without esophagitis, N94.6 - Dysmenorrhea, unspecified, R03.0 - Elevated blood-pressure reading, without diagnosis of hypertension, R42 - Dizziness and giddiness, T14.8XXA - Other injury of unspecified body region, initial encounter Lipid Panel 01/13/25 URMILA Ferris D50.0 - Iron deficiency anemia secondary to blood loss (chronic), D50.9 - Iron deficiency anemia, unspecified, E66.3 - Overweight, H81.10 - Benign paroxysmal vertigo, unspecified ear, H93.11 - Tinnitus, right ear, J45.20 - Mild intermittent asthma, uncomplicated, K21.9 - Gastro-esophageal reflux disease without esophagitis, N94.6 - Dysmenorrhea, unspecified, R03.0 - Elevated blood-pressure reading, without diagnosis of hypertension, R42 - Dizziness and giddiness, T14.8XXA - Other injury of unspecified body region, initial encounter Comprehensive Pledger. Panel Fast 01/13/25 URMILA Ferris D50.0 - Iron deficiency anemia secondary to blood loss (chronic), D50.9 - Iron deficiency anemia, unspecified, E66.3 - Overweight, H81.10 - Benign paroxysmal vertigo, unspecified ear, H93.11 - Tinnitus, right ear, J45.20 - Mild intermittent asthma, uncomplicated, K21.9 - Gastro-esophageal reflux disease without esophagitis, N94.6 - Dysmenorrhea, unspecified, R03.0 - Elevated blood-pressure reading, without diagnosis of hypertension, R42 - Dizziness and giddiness, T14.8XXA - Other injury of unspecified body region, initial encounter UA CC w/rflx Micro + Cult 01/13/25 URMILA Ferris D50.0 - Iron deficiency anemia secondary to blood loss (chronic), D50.9 - Iron deficiency anemia, unspecified, E66.3 - Overweight, H81.10 - Benign paroxysmal vertigo, unspecified ear, H93.11 - Tinnitus, right ear, J45.20 - Mild intermittent asthma, uncomplicated, K21.9 - Gastro-esophageal reflux disease without esophagitis, N94.6 - Dysmenorrhea, unspecified, R03.0 - Elevated blood-pressure reading, without diagnosis of hypertension, R42 - Dizziness and giddiness, T14.8XXA - Other injury of unspecified body region, initial encounter TSH reflex Free T4 01/13/25 URMILA Ferris D50.0 - Iron deficiency anemia secondary to blood loss (chronic), D50.9 - Iron deficiency anemia, unspecified, E66.3 - Overweight, H81.10 - Benign paroxysmal vertigo, unspecified ear, H93.11 - Tinnitus, right ear, J45.20 - Mild intermittent asthma, uncomplicated, K21.9 - Gastro-esophageal reflux disease without esophagitis, N94.6 - Dysmenorrhea, unspecified, R03.0 - Elevated blood-pressure reading, without diagnosis of hypertension, R42 - Dizziness and giddiness, T14.8XXA - Other injury of unspecified body region, initial encounter Vitamin D 25-OH Total 01/13/25 URMILA Ferris D50.0 - Iron deficiency anemia secondary to blood loss (chronic), D50.9 - Iron deficiency anemia, unspecified, E66.3 - Overweight, H81.10 - Benign paroxysmal vertigo, unspecified ear, H93.11 - Tinnitus, right ear, J45.20 - Mild intermittent asthma, uncomplicated, K21.9 - Gastro-esophageal reflux disease without esophagitis, N94.6 - Dysmenorrhea, unspecified, R03.0 - Elevated blood-pressure reading, without diagnosis of hypertension, R42 - Dizziness and giddiness, T14.8XXA - Other injury of unspecified body region, initial encounter Glucose Fasting 01/13/25 URMILA Ferris D50.0 - Iron deficiency anemia secondary to blood loss (chronic), D50.9 - Iron deficiency anemia, unspecified, E66.3 - Overweight, H81.10 - Benign paroxysmal vertigo, unspecified ear, H93.11 - Tinnitus, right ear, J45.20 - Mild intermittent asthma, uncomplicated, K21.9 - Gastro-esophageal reflux disease without esophagitis, N94.6 - Dysmenorrhea, unspecified, R03.0 - Elevated blood-pressure reading, without diagnosis of hypertension, R42 - Dizziness and giddiness, T14.8XXA - Other injury of unspecified body region, initial encounter Medications: Changed From polyethylene glycol 3350 (Miralax) 17 grams PO DAILY 510 grams 2RF To polyethylene glycol 3350 (Miralax) 17 grams PO DAILY PRN Vielka Rinaldi, EVICTION SPECIALIST-BC
== END 2025-01-13 17:09 | disposition home or self-care (01) ==
LOC: HO.HMCH 15:58
PROVIDERS: PCP Internal Medicine
DX: F32.89 Other specified depressive episodes (principal)

== ENCOUNTER → 2025-01-13 15:58 | Outpatient (BNVA) | payer OTHER, SELFPAY | PROVIDERS: PCP Internal Medicine | DX: F32.89 Other specified depressive episodes (principal); D50.0 Iron deficiency anemia secondary to blood loss (chronic); E66.3 Overweight; H81.10 Benign paroxysmal vertigo, unspecified ear; H93.11 Tinnitus, right ear; J45.20 Mild intermittent asthma, uncomplicated; K21.9 Gastro-esophageal reflux disease without esophagitis; N94.6 Dysmenorrhea, unspecified; R03.0 Elevated blood-pressure reading, without diagnosis of hypertension; T14.8XXA Other injury of unspecified body region, initial encounter; X58.XXXA Exposure to other specified factors, initial encounter; Y93.9 Activity, unspecified; Y92.9 Unspecified place or not applicable; Y99.9 Unspecified external cause status; Z68.29 Body mass index [BMI] 29.0-29.9, adult | CPT/HCPCS: 96127; 99212 ==

== ENCOUNTER 2025-01-18 06:55 | Outpatient (REF) | payer OTHER, SELFPAY ==
[2025-01-18 07:06] LABS: MANUAL DIFF FLAG NO
[2025-01-18 07:19] LABS: Basophils Percent Auto 0.4 % (0-2); Eosinophils Percent Auto 0.5 % (0-4); Hematocrit 42.2 % (37.0-47.0); Hemoglobin 13.2 g/dl (12.0-16.0); Imm Gran Abs Auto 0.02 X10*3/uL (0.00-0.03); Imm Gran Pct Auto 0.4 % (0.0-0.4); Lymphocytes Percent Auto 35.8 % (20-40); Mean Corpuscular HGB Conc 31.3 g/dl (31.0-35.0); Mean Corpuscular Hemoglobin 26.2 pg (27.0-33.0); Mean Corpuscular Volume 83.9 fL (80.0-98.0); Mean Platelet Volume 11.3 fL (9.4-12.3); Monocytes Absolute Auto 0.4 X10*3/uL (0.1-1.2); Monocytes Percent Auto 7.7 % (2-11); Neutrophils Absolute Auto 3.1 x10*3/uL (2.0-8.3); Neutrophils Percent Auto 55.2 % (45-73); Platelet Count 221 X10*3/uL (160-400); Red Blood Count 5.03 X10*6/uL (4.20-5.50); White Blood Count 5.6 X10*3/uL (4.8-10.8)
[2025-01-18 07:35] LABS: Appearance Urine Cloudy; Color Urine Yellow; Glucose Urine UA Negative (Negative); Leukocyte Esterase Urine Small (1+) (Negative); Nitrite Urine Negative (Negative); PH 5.5 (5.0-9.0); Specific Gravity - Urine 1.025 (1.005-1.025); UMIC TRIGGER UACC YES; Urine Blood Negative (Negative); Urine Ketones Trace mg/dL (Negative); Urine Protein Negative (Neg-Trace)
[2025-01-18 07:47] LABS: Bacteria Urine 3+ (None Seen); RBC Urine 0-2 /HPF (0-2); UACC Culture Trigger YES; WBC Urine 0-5 /HPF (0-5)
[2025-01-18 07:55] LABS: Alanine Aminotransferase 18 U/L (0-31); Albumin Level 3.8 g/dL (3.5-5.0); Alkaline Phosphatase 60 U/L (39-117); Anion Gap 10 (12-20); Aspartate Amino Transferase 21 U/L (5-31); Bilirubin Total 0.3 mg/dL (0.0-1.0); Blood Urea Nitrogen 14 mg/dL (9-16); Calcium 9.2 mg/dL (8.4-10.2); Carbon Dioxide 27 mmol/L (22-29); Chloride 109 mmol/L (96-108); Cholesterol 161 mg/dL (<200); Estimated Glomerular Filt Rate > 60; Glucose Fasting 102 mg/dL (60-99); HDL Cholesterol 63 mg/dL (>40); LDL Cholesterol Calculated 85 mg/dL (<100); Potassium 4.2 mmol/L (3.3-5.1); Sodium 142 mmol/L (135-145); Total Protein 6.6 g/dL (6.5-8.0); Triglycerides 65 mg/dL (<150)
[2025-01-18 08:25] LABS: TSH reflex Free T4 1.43 uIU/mL (0.32-4.0)
== END 2025-01-18 06:56 | disposition home or self-care (01) ==
LOC: HO.LAB 06:55
PROVIDERS: PCP Internal Medicine
DX: K21.9 Gastro-esophageal reflux disease without esophagitis (principal); H81.10 Benign paroxysmal vertigo, unspecified ear; H93.11 Tinnitus, right ear; R42 Dizziness and giddiness; R03.0 Elevated blood-pressure reading, without diagnosis of hypertension; T14.8XXA Other injury of unspecified body region, initial encounter; D50.0 Iron deficiency anemia secondary to blood loss (chronic); N94.6 Dysmenorrhea, unspecified; D50.9 Iron deficiency anemia, unspecified; J45.20 Mild intermittent asthma, uncomplicated; E66.3 Overweight; R30.0 Dysuria
CPT/HCPCS: 36415; 80053; 80061; 81001; 82306; 84443; 85025; 87086; 87088; 87186

== ENCOUNTER 2025-01-20 08:58 | Outpatient (AMB) | payer OTHER, SELFPAY ==
[2025-01-20 08:59] VITALS: BP 132/70; PULSE 70; O2SAT 100; BMI 29.6
--- NOTE | 2025-01-20 08:59 | A.OFFVIS_ITS ---
Vital Signs 01/20/25 08:59 Height 5 ft 1 in Weight 156 lb 8.451 oz BMI 29.6 BP 132/70 Blood Pressure Location Rt brachial Position Sitting Pulse 70 Pulse Source Pulse Oximeter Pulse Oximetry (%) 100 Oxygen Delivery Method Room Air Intake Visit Reasons: 6 month follow up Intake Note: ESTABLISHED PATIENT for mgmt of IBS and abd pain. Chief Complaint; C/O worsening GERD, N+V, intermittent constipation + diarrhea, dizziness. Pt still taking all GI meds as instructed but is having difficulty with work schedule at the moment. Pt is having trouble finding time to eat when it will not cause GI sx. Pt states that sx are currently severe to the point that it is affecting sleep. Stock Counter Required: No Accompanied by: Self / Same As Patient Allergies No Known Allergies [No Known Allergies*] Allergy (Verified 01/20/25 09:00) HPI HPI 6 month follow up: Details: LAST VISIT: Exocrine pancreatic insufficiency GERD without esophagitis IBS (irritable bowel syndrome) Abdominal pain, LUQ (left upper quadrant) Postprandial abdominal bloating Status post colonoscopy Plan Patient will continue current treatment with PPI. Avoid dietary triggers and late night snacking. She has been doing quite well. Continue senna daily. Increase fluid intake and activity to promote better bowel motility. Patient can continue taking Creon with meals. Tolerating well. Patient will follow-up in 3 months, sooner on as needed basis. She is agreeable to this plan and verbalizes understanding of instructions. She was given the opportunity to ask questions and all questions answered. ? TODAY'S VISIT: Patient is here today for follow-up. Patient reports she has been under lots of stress and is going through severe depression. Patient currently is off from work and is seeing a therapist in the next couple days. Patient saw her PCP who also order therapist and she will make an appointment with them as well. Patient reports that she does not have much appetite. Moving her bowels well, still taking Nexium daily, however feels like it is not really helping her. Vee neal frequently feels nauseous and bloated even though she does not eat much. Patient denies vomiting. Denies melena, hematochezia. [facility] Medical History Constipation GERD without esophagitis Gastritis Asthma Overweight (BMI 25.0-29.9) ZHOU positive Varicose veins of bilateral lower extremities with pain Surgical History History of loop electrical excision procedure (LEEP) History of esophagogastroduodenoscopy (EGD) Hx of colonoscopy Hx of laparoscopy Status post laser ablation of incompetent vein H/O tubal ligation Hx of cholecystectomy (~2014) H/O gastric bypass (~2018) Family History Father HTN (hypertension) Diabetes mellitus Mother HTN (hypertension) Diabetes mellitus Asthma Brother No problems noted. Brother No problems noted. Brother No problems noted. Brother No problems noted. Sister No problems noted. Daughter No problems noted. Son No problems noted. Son No problems noted. Paternal Aunt Breast cancer Family/Other Colon cancer Maternal Aunt Ovarian cancer Social History Household Members: Spouse Housing: House Are you a primary family day care provider to a significant other at home: No Do you presently have visiting nurse or other home services: No Alcohol intake: never Patient Tobacco Use Status: Never used Tobacco e-Cigarette/Vaping Use: Never Used Second Hand Smoke Exposure: No service: No Current occupational status: employed Cognitive needs: No Hearing needs: No Vision needs: Yes (Glasses) Female Reproductive History Menstrual Age of Menarche: 14 Review of Systems Const Denies weight gain and Denies weight loss ENT Reports no additional complaints, Denies dysphagia and Denies odynophagia Card Reports no additional complaints Resp Reports no additional complaints GI Denies abdominal pain, Denies belching, Denies melena, Denies bloating, Denies change in bowel habits, Denies dysphagia, Denies excessive flatus, Denies dyspepsia, Denies heartburn, Denies diarrhea, Denies loose stools, Denies nausea, Denies odynophagia and Denies vomiting Musc Reports no additional complaints Neuro Reports no additional complaints Psych Reports no additional complaints Endo Reports no additional complaints Physical Exam Vital Signs: Last Vital Signs Pulse 70 01/20/25 08:59 BP 132/70 01/20/25 08:59 Pulse Ox 100 01/20/25 08:59 Oxygen Delivery Method Room Air 01/20/25 08:59 BMI result Body Mass Index 29.6 Const General: healthy appearing and no acute distress Nutritional Appearance: obese Orientation/consciousness: patient oriented x3 Resp Effort & Inspection: normal respiratory effort, able to speak in complete sentences, no tracheal deviation and symmetric chest movement Auscultation: clear to auscultation bilaterally Cardio Rate: regular rate GI Inspection: Yes normal to inspection, No distended and Yes obesity Palpation (GI): Soft to palpation, not firm, Tenderness to palpation present (GI) in the LUQ and No hepatosplenomegaly present Auscultation: Hyperactive bowel sounds present General: Yes no CVA tenderness Back/Spine/Pelvis Back: no CVA tenderness Skin General skin exam: elasticity normal, turgor normal and dry skin Neuro General: patient oriented x3 Psych Appearance: grossly normal Mental Status: mental status grossly normal Assessment & Plan Assessment & Plan (1) Depression: Code(s): F32.A - Depression, unspecified Category: Medical Qualifiers: Depression Type: other depression Qualified Code(s): F32.89 - Other specified depressive episodes (2) Abdominal pain: Code(s): R10.9 - Unspecified abdominal pain Category: Medical Qualifiers: Abdominal location: epigastric Qualified Code(s): R10.13 - Epigastric pain (3) GERD without esophagitis: Code(s): K21.9 - Gastro-esophageal reflux disease without esophagitis Category: Medical (4) Exocrine pancreatic insufficiency: Code(s): K86.81 - Exocrine pancreatic insufficiency Category: Medical (5) IBS (irritable bowel syndrome): Code(s): K58.9 - Irritable bowel syndrome, unspecified Qualifiers: Irritable bowel syndrome type: with both diarrhea and constipation Qualified Code(s): K58.2 - Mixed irritable bowel syndrome (6) Abdominal pain, LUQ (left upper quadrant): Code(s): R10.12 - Left upper quadrant pain (7) Postprandial abdominal bloating: Code(s): R14.0 - Abdominal distension (gaseous) Plan Patient will continue current management with Nexium. Avoid dietary triggers. Patient will continue taking Creon with meals. Patient will keep her appointment with therapist this week as well as the 1 that she will see in the near future. Patient denies SI or HI. Feel safe to go home. Here for today throughout the visit. Patient believes that her symptoms are related to her stress. She will call us if she will have any GI concerning symptoms or if she will get worse. Patient was encouraged to go to ED if she will have worsening symptoms. She is agreeable to current plan of care and verbalizes understanding of instructions. She was given the opportunity to ask questions and all quest ions answered. Thank you for allowing me to participate in her care Coding Level of Care Code Est Pt Level 4 (68471) Complex EM visit Add On G2211 Diagnoses Other depression F32.89 Depression Type: other depression Epigastric pain R10.13 Abdominal location: epigastric GERD without esophagitis K21.9 Exocrine pancreatic insufficiency K86.81 Irritable bowel syndrome with both constipation and diarrhea K58.2 Irritable bowel syndrome type: with both diarrhea and constipation Abdominal pain, LUQ (left upper quadrant) R10.12 Postprandial abdominal bloating R14.0 Time Spent (min) 40 Comment 25 minutes spent with patient and additional 15 minutes spent reviewing her records
== END 2025-01-20 09:22 | disposition home or self-care (01) ==
LOC: HO.HGI 08:58
PROVIDERS: PCP Internal Medicine; Visit Provider Nurse Practitioner Family
DX: F32.89 Other specified depressive episodes (principal); R10.13 Epigastric pain; K21.9 Gastro-esophageal reflux disease without esophagitis; K86.81 Exocrine pancreatic insufficiency; K58.2 Mixed irritable bowel syndrome; R10.12 Left upper quadrant pain; R14.0 Abdominal distension (gaseous)
CPT/HCPCS: 99214; G2211

== ENCOUNTER → 2025-01-20 08:58 | Outpatient (BNVA) | payer OTHER, SELFPAY | PROVIDERS: PCP Internal Medicine; Visit Provider Nurse Practitioner Family | DX: K21.9 Gastro-esophageal reflux disease without esophagitis (principal); K86.81 Exocrine pancreatic insufficiency; K58.2 Mixed irritable bowel syndrome; R10.9 Unspecified abdominal pain; F32.89 Other specified depressive episodes; R10.13 Epigastric pain; R10.12 Left upper quadrant pain; R14.0 Abdominal distension (gaseous) | CPT/HCPCS: 99212 ==

== ENCOUNTER 2025-01-29 10:32 | Outpatient (AMB) | payer OTHER, SELFPAY ==
[2025-01-29 10:33] VITALS: BP 116/70; PULSE 83; O2SAT 98
--- NOTE | 2025-01-29 10:33 | A.OFFPC_ITS ---
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 Accompanied by: Self / Same As Patient Allergies No Known Allergies [No Known Allergies*] Allergy (Verified 01/29/25 10:51) Medication List - Last Reconciled 01/29/25 by Ronny Lan MD acetaminophen 650 mg PO Q6H PRN albuterol sulfate 90 mcg/actuation (ProAir HFA) 1 inh inhalation QID PRN 30 days cholecalciferol (vitamin D3) 25 mcg PO DAILY docusate sodium (Colace) 100 mg PO BID esomeprazole magnesium (Nexium) 20 mg PO DAILY ferrous sulfate 325 mg PO DAILY fluticasone propionate 50 mcg/actuation 1 spray intranasal BID ibuprofen 600 mg PO Q8H PRN [id number]-rtptxto 24,000-76,000 -120,000 unit (Creon) 1 cap PO QID loratadine 10 mg PO DAILY magnesium oxide 400 mg PO DAILY polyethylene glycol 3350 (Miralax) 17 grams PO DAILY PRN riboflavin (vitamin B2) 400 mg PO DAILY sennosides (Natural Senna Laxative) 17.2 mg (2 x 8.6 mg) PO BEDTIME Tobacco use date assessed: 01/29/25 Dental Screening Dental Screen Date: 01/29/25 Did you have a dental visit in the last 12 months?: Yes Did you have a dental problem in the last 6 months where you did not have access to dental care?: No Was dental information given to patient?: Patient has dentist HPI High BP HPI Details Patient comes in today for her follow-up visit States that she is still experiencing increased headaches often - thinks that her headaches are likely due to increased stress and from her working 3rd shift as her headaches starting occurring frequently when she was assigned to third shift last year Relates that she has also been feeling very depressed and has been out of work on leave for a while now and does not feel that she is ready to return to work yet - is currently due to go back to work early next month (February 2025) She has been seeing a therapist at [facility] for a while now and states that they are presently trying to get her in to see psychiatry [facility] - she will find out more on this at her next appt with them on 02/03/25 Adds that she has been experiencing increased pain over the medial aspect of her right knee ever since she hit her knee accidentally on the edge of a metal chair this past Saturday (5 days ago) Patient denies any chest pains, no shortness of breath No nausea/vomiting, no abdominal pain No change in bowel habits noted She had her follow up labs done early last week - to discuss her results [facility] Medical History (Updated 01/31/25 @ 01:07 by Ronny Lan MD) Vitamin D deficiency Obesity (BMI 30-39.9) Constipation GERD without esophagitis Gastritis Asthma Overweight (BMI 25.0-29.9) ZHOU positive Varicose veins of bilateral lower extremities with pain Surgical History History of loop electrical excision procedure (LEEP) History of esophagogastroduodenoscopy (EGD) Hx of colonoscopy Hx of laparoscopy Status post laser ablation of incompetent vein H/O tubal ligation Hx of cholecystectomy (~2014) H/O gastric bypass (~2018) Family History Father HTN (hypertension) Diabetes mellitus Mother HTN (hypertension) Diabetes mellitus Asthma Brother No problems noted. Brother No problems noted. Brother No problems noted. Brother No problems noted. Sister No problems noted. Daughter No problems noted. Son No problems noted. Son No problems noted. Paternal Aunt Breast cancer Family/Other Colon cancer Maternal Aunt Ovarian cancer Social History Household Members: Spouse Housing: House Are you a primary school childcare attendant to a significant other at home: No Do you presently have visiting nurse or other home services: No Alcohol intake: never Patient Tobacco Use Status: Never used Tobacco e-Cigarette/Vaping Use: Never Used Second Hand Smoke Exposure: No service: No Current occupational status: employed Cognitive needs: No Hearing needs: No Vision needs: Yes (Glasses) Female Reproductive History Menstrual Age of Menarche: 14 Questionnaire PHQ-9 Over the last 2 weeks, how often have you been bothered by any of the following problems? 1. Little interest or pleasure in doing things: not at all 2. Feeling down, depressed, or hopeless: nearly every day 3. Trouble falling or staying asleep, or sleeping too much: nearly every day 4. Feeling tired or having little energy: nearly every day 5. Poor appetite or overeating: several days 6. Feeling bad about yourself - or that you are a failure or have let yourself or your family down: not at all 7. Trouble concentrating on things, such as reading the newspaper or watching television: more than half the days 8. Moving or speaking so slowly that other people could have noticed. Or the opposite - being so fidgety or restless that you have been moving around a lot more than usual: more than half the days 9. Thoughts that you would be better off or of hurting yourself in some way: not at all Total score: 14 Depression Screening Interpretation: Positive Depression Screening Follow-up: Existing condition and In treatment Depression Screening Done: Yes 84932 - PHQ-9 Billing: Yes Source: Developed by Drs. Merritt Vargas, Nicole Lagunas, Natan Ceron and colleagues, with an educational ludmila from [employer]. Thrive Questionnaire Date Thrive assessed: 01/29/25 I am a: Patient What is your living situation today?: I have a steady place to live Within the past 12 months, did the food you bought not last and you didn't have the money to get more?: Never true Within the past 12 months, did you worry whether your food would run out before you got money to buy more?: Never true Do you have trouble paying for medicines?: No Do you have trouble getting transportation to medical appointments?: No Do you have trouble paying your heating and electricity bill?: No Do you have trouble taking care of your child, family member or friend?: No Do you have trouble with day-to-day activities such as bathing, preparing meals, shopping, managing finances, etc.?: No Are you currently unemployed and looking for a job?: No Are you interested in more education?: No Please select the resources that you would like help with: None Currently or been in a relationship where the following occur: No concerns reported THRIVE Score: 0 AUDIT C Alcohol Use Questionnaire (AUDIT-C) 1. How often do you have a drink containing alcohol?: Never 3. How often do you have six or more drinks on one occasion?: Never Total Score: 0 Score Reviewed/Action Taken: Yes LUISITO-7 AMB Questionnaire LUISITO-7 Date LUISITO - 7 assessed: 01/29/25 Feeling nervous, anxious, or on edge: 0 = Not at all Not being able to stop or control worryin = Not at all Worrying too much about different things: 0 = Not at all Trouble relaxin = Not at all Being so restless that it is hard to sit still: 0 = Not at all Becoming easily annoyed or irritable: 0 = Not at all Feeling afraid as if something awful might happen: 0 = Not at all Total LUISITO-7 score (0-4 normal; 5-9 mild; 10-14 moderate; 15-21 severe): 0 Source: Developed by Drs. Merritt Vargas, Nicole Lagunas, Natan Ceron and colleagues, with an educational ludmila from [employer]. Review of Systems Const Denies chills, Reports difficulty sleeping (thinks this is mostly due to working 3rd shift), Reports fatigue, Denies fever(s) and Reports headache(s) (recurrent) ENT Denies dysphagia, Reports dizziness (at times lately), Denies otalgia, Reports headache(s) (recurrent), Denies neck pain, Denies odynophagia and Denies sore throat Card Denies chest pain, Denies irregular heart rhythm, Denies palpitations and Denies dyspnea Resp Denies chest congestion, Denies cough and Denies dyspnea GI Denies abdominal pain, Denies constipation, Denies dysphagia, Denies heartburn, Denies diarrhea, Denies nausea, Denies odynophagia and Denies vomiting Denies urinary frequency, Denies dysuria and Denies urinary urgency Musc Denies back pain, Reports arthralgias (over the right knee medially) and Denies neck pain Skin/Breast Denies rash Neuro Reports dizziness (at times lately), Reports headache(s) (recurrent) and Denies paresthesias Psych Reports anxiety and Reports depression (is now seeing therapist at [facility]) Endo Reports fatigue and Denies palpitations Efrem/Lymph Denies easy bruising Physical exam (Primary Care) Vital Signs: Last Vital Signs Pulse 83 01/29/25 10:33 BP 116/70 01/29/25 10:33 Pulse Ox 98 01/29/25 10:33 Oxygen Delivery Method Room Air 01/29/25 10:33 BMI result Body Mass Index 30.0 Tobacco/Smoking Status: Tobacco use Status Tobacco use date assessed 01/29/25 01/29/25 10:41 Patient Tobacco Use Status Never used Tobacco 01/29/25 10:41 e-Cigarette/Vaping Use Never Used 01/29/25 10:41 Depression Screening Interpretation: Positive Depression Screening Follow-up: Existing condition and In treatment Thrive Assessment: Date of Thrive Assessment Date Thrive assessed 01/29/25 01/29/25 10:41 Currently or been in a relationship where the following occur: No concerns reported Const General: no acute distress and alert HENMT Ears: TM's normal bilaterally and EAC's normal Throat: Yes posterior oropharynx normal and Yes tonsils normal (no TP congestion) Neck Neck: Yes no lymphadenopathy and Yes supple Thyroid: Thyroid normal Resp Auscultation: clear to auscultation bilaterally, no rales and no wheezes Cardio Rate: regular rate Rhythm: regular rhythm Heart sounds: no murmurs GI Palpation (GI): Soft to palpation and nontender Auscultation: normal bowel sounds General: Yes no CVA tenderness Back/Spine/Pelvis Back: no CVA tenderness Thoracic/Lumbar Spine: No lumbar spinal tenderness Skin Rashes: no rashes Extrem General: Yes no clubbing, cyanosis or edema Right lower extremity: knee Details: tenderness Location: of the medial joint line; no swelling Results Reviewed Results Reviewed: Laboratory Tests 01/18/25 01/18/25 07:04 07:05 WBC 5.6 Hgb 13.2 Hct 42.2 Plt Count 221 Sodium 142 Potassium 4.2 Creatinine 0.74 Estimated GFR > 60 Fasting Glucose 102 H Calcium 9.2 D AST 21 ALT 18 Triglycerides 65 Cholesterol 161 LDL Cholesterol, Calc 85 HDL Cholesterol 63 25-OH Vitamin D Total 15.0 L TSH 1.43 Ur Specific Batt[place] 1.025 Urine Protein Negative Urine Glucose (UA) Negative Urine Blood Negative Urine Nitrite Negative Ur Leukocyte Esterase Small (1+) H Coding Level of Care Code Est Pt Level 4 (45370) Diagnoses Nonintractable headache, unspecified chronicity pattern, unspecified headache type R51.9 Headache type: unspecified Headache chronicity pattern: unspecified pattern Intractability: not intractable Chronic superficial gastritis without bleeding K29.30 Gastritis type: superficial Chronicity: chronic Gastritis bleeding: without bleeding Intermittent asthma without complication, unspecified asthma severity J45.20 Asthma severity: unspecified severity Asthma persistence: intermittent Asthma complication type: uncomplicated Anemia, unspecified type D64.9 Anemia type: unspecified type Vitamin D deficiency E55.9 Constipation, unspecified constipation type K59.00 Constipation type: unspecified constipation type Acute pain of right knee M25.561 Chronicity: acute Other depression F32.89 Depression Type: other depression Obesity (BMI 30-39.9) E66.9 Additional Codes PHQ-9 - 70232 - PHQ-9 Billing: Yes ([id number]) Assessment & Plan Assessment & Plan (1) Headache: Code(s): R51.9 - Headache, unspecified Category: Medical Qualifiers: Headache type: unspecified Headache chronicity pattern: unspecified pattern Intractability: not intractable Qualified Code(s): R51.9 - Headache, unspecified Plan: Discuss with patient that these are most likely tension-headaches or muscle contraction headaches associated manily with her recent increased stress and anxiety/depression and should improve with better control of her mood disorder She is currently only taking Ibuprofen or Acetaminophen for her headaches, with temporary relief Continue Vitamin B2 QD - this has been known to help with chronic headaches/migraine (2) Gastritis: Code(s): K29.70 - Gastritis, unspecified, without bleeding Category: Medical Qualifiers: Gastritis type: superficial Chronicity: chronic Gastritis bleeding: without bleeding Qualified Code(s): K29.30 - Chronic superficial gastritis without bleeding Plan: EGD done in January 2023 revealed (+) findings of moderate chronic active gastritis Patient states that symptoms have improved significantly with Tx with her current Rx Continue Nexium 40 mg QD Follow up with GI as scheduled (3) Asthma: Code(s): J45.909 - Unspecified asthma, uncomplicated Category: Medical Qualifiers: Asthma severity: unspecified severity Asthma persistence: intermittent Asthma complication type: uncomplicated Qualified Code(s): J45.20 - Mild intermittent asthma, uncomplicated Plan: Controlled - continue Albuterol HFA 2 inhalations Q 6 hours PRN (4) Anemia: Code(s): D64.9 - Anemia, unspecified Category: Medical Qualifiers: Anemia type: unspecified type Qualified Code(s): D64.9 - Anemia, unspecified Plan: Corrected - her H/H was normal at 13.2/42.2 on her labs done last week This was most likely due to a combination of iron-deficiency and her heavy menstrual bleeding Continue Ferrous Sulfate 325 mg QD Will continue to monitor her CBC regularly (5) Vitamin D deficiency: Code(s): E55.9 - Vitamin D deficiency, unspecified Category: Medical Plan: Results of her labs done last week reviewed and discussed with patient She is advised that aside from her low vitamin-D level, all of her other labs are normal and within acceptable range Will start patient on vitamin D3 2000 units QD (6) Constipation: Code(s): K59.00 - Constipation, unspecified Category: Medical Qualifiers: Constipation type: unspecified constipation type Qualified Code(s): K59.00 - Constipation, unspecified Plan: Patient is aware that her oral iron supplements are likely contributing to her constipation Continue Miralax 17 gm QD and OTC stool softeners PRN for symptomatic relief She is also again encouraged to increase her oral fluids and dietary fiber intake (7) Right knee pain: Code(s): M25.561 - Pain in right knee Category: Medical Qualifiers: Chronicity: acute Qualified Code(s): M25.561 - Pain in right knee Plan: Will send patient for x-rays of her right knee GLEN for further evaluation (8) Depression: Code(s): F32.A - Depression, unspecified Category: Medical Qualifiers: Depression Type: other depression Qualified Code(s): F32.89 - Other specified depressive episodes Plan: Patient appears to be experiencing increased anxiety and depression over the past year, mostly related to her job and with the fact that she has to work third shift She has been out of work on medical leave for a while now and does not feel that she is ready to return to work yet - is currently due to go back to work early next month (February 2025) Patient declines offer to start her on Rx to help with her mood disorder She has been seeing a therapist at [facility] for a while and states that they are presently trying to get her in to see psychiatry [facility] - she will find out more on this at her next appt with them on 02/03/25 (9) Obesity (BMI 30-39.9): Comment: (+) Hx of gastric bypass in 2018 in [place] Code(s): E66.9 - Obesity, unspecified Category: Medical Plan: Reinforced diet/exercise as tolerated/lose weight Plan Follow up in 4 months Orders: Orders XR knee RT 4V 01/29/25 M25.561 - Pain in right knee Medications: Changed From cholecalciferol (vitamin D3) 25 mcg PO DAILY 90 caps 3RF To cholecalciferol (vitamin D3) 50 mcg PO DAILY 90 days 90 caps 3RF
== END 2025-01-29 11:04 | disposition home or self-care (01) ==
LOC: HO.HMCH 10:33
PROVIDERS: PCP Internal Medicine; Visit Provider Internal Medicine
DX: R51.9 Headache, unspecified (principal); K29.30 Chronic superficial gastritis without bleeding; E66.9 Obesity, unspecified; Z68.30 Body mass index [BMI] 30.0-30.9, adult; J45.20 Mild intermittent asthma, uncomplicated; D64.9 Anemia, unspecified; E55.9 Vitamin D deficiency, unspecified; K59.00 Constipation, unspecified; M25.561 Pain in right knee; F32.89 Other specified depressive episodes

== ENCOUNTER 2025-01-29 10:32 | Outpatient (REF) | payer OTHER, SELFPAY ==
--- NOTE | ~2025-01-29 | XR_ITS ---
EXAMINATION: XR KNEE, RIGHT CLINICAL INFORMATION: M25.561 - Pain in right knee COMPARISON: None available. TECHNIQUE: Four views of the right knee. FINDINGS: No fracture, dislocation, or suspicious bone lesion. There is normal bone mineralization. There is normal alignment. Mild to moderate tricompartmental osteoarthritis, with moderate to severe changes in the patellofemoral compartment. There is marginal osteophytic spurring, and mild subchondral sclerosis in the lateral and patellofemoral compartments. There is spurring of the tibial spines. There are femoral tunnel osteophytes on the tunnel view. There is a [id number] sized suprapatellar joint effusion. Soft tissues appear normal. XR/XR knee RT 4V IMPRESSION: 1. No acute bony abnormalities. 2. Small to moderate size joint effusion. 3. Osteoarthrosis, mild to moderate in the medial and lateral compartments, and moderate to severe in the patellofemoral compartment. Electronically signed by: Andrei Jerez MD 02/02/2025 08:16 AM EDT
== END 2025-01-29 10:33 | disposition home or self-care (01) ==
LOC: HO.XRAY 10:32
PROVIDERS: PCP Internal Medicine; Visit Provider Internal Medicine
DX: R51.9 Headache, unspecified (principal); K29.30 Chronic superficial gastritis without bleeding; J45.909 Unspecified asthma, uncomplicated; D64.9 Anemia, unspecified; E55.9 Vitamin D deficiency, unspecified; K59.00 Constipation, unspecified; M25.561 Pain in right knee; F32.89 Other specified depressive episodes; E66.9 Obesity, unspecified; Z98.84 Bariatric surgery status
CPT/HCPCS: 73564; 96127; 99212

== ENCOUNTER → 2025-01-29 12:42 | Outpatient (BNV) | payer OTHER, SELFPAY | PROVIDERS: PCP Internal Medicine; Visit Provider Radiology Diagnostic Radiology | DX: M25.461 Effusion, right knee (principal); M17.11 Unilateral primary osteoarthritis, right knee | CPT/HCPCS: 73564 ==

== ENCOUNTER 2025-04-20 11:10 | Outpatient (AMB) | payer OTHER, SELFPAY ==
--- NOTE | 2025-04-20 11:43 | MHC.AMNUTRGE ---
Intake Visit Reasons: Initial Nutrition Assessment Allergies No Known Allergies (No Known Allergies*) Allergy (Verified 01/29/25 10:51) Nutrition Presentation Details: Met with patient today. History of gastric bypass in 2018 and now has anemia, stomach pain and frequent N/V with most food intake. Reports iron pills have historically caused constipation. Tries to eat off a small elke plate. Still gets N/V when eating many foods. Drinks a lot of coffee with sugar to avoid a bad mood. Had been having 5 cups a day and now down to 3 each with a TSP sugar. Is continuing to work on decreasing consumption and aware this could be causing GI upset. Pt points to LLQ pain. Experiences early satiety and then getsn ight hunger. Does not hydrate very well and knows this is a problem. Open to starting back on a bariatric lifestyle and using bariatric specific products. States that she was told by her bariatric sx in [place] that her pouch was too small and underwent a dilation in the same year as the surgery in hopes to be able to increase intake and food tolerance. Reason for consult: other (Anemia, Hx of GBP) Unstable SDH: Reports use of SNAP (Family uses HIP) GI symptoms: reports early satiety, nausea (with many foods), vomiting (when overeats), diarrhea (question if dumping syndrome), constipation (uses coconut oil by the TBSP due to iron pills) and other (question if gastric ulcers present-sees GI today) Food allergies/aversions: Yes (possible lactose intolerance) Diet Assmnt Details: pre op 2018 weight was 248#, withing 1-2 months got down to 172 and by the end of 2018 was down to 120. in 202 started to regain up to 135 and has progressively gained back up to 160 to present. Dietary counseling: Mediterranean (high protein) Who buys your food: parent Who prepares/cooks your food: self Meal frequency: regular: breakfast (toast, coffee with sugar), dinner (rice, beans, meat patties) and snacks (fruit) and irregular: lunch (skip) Lifestyle Emotional Eating: Reports depression and anxiety Reads food labels: Yes Family support: Yes Food frequency: Dairy: occasionally (reports not tolerating yogurt) BS Monitoring Most Recent Diabetes Results: Cholesterol, (<200) 161 mg/dL 01/18/25 HDL Cholesterol, (>40) 63 mg/dL 01/18/25 Triglycerides, (<150) 65 mg/dL 01/18/25 Creatinine, (0.5-1.4) 0.74 mg/dL 01/18/25 BUN, (9-16) 14 mg/dL 01/18/25 Sodium, (135-145) 142 mmol/L 01/18/25 Potassium, (3.3-5.1) 4.2 mmol/L 01/18/25 Chloride, (96-108) 109 mmol/L H 01/18/25 Carbon Dioxide, (22-29) 27 mmol/L 01/18/25 Calcium, (8.4-10.2) 9.2 mg/dL Δ 01/18/25 AST, (5-31) 21 U/L 01/18/25 ALT, (0-31) 18 U/L 01/18/25 Total Protein, (6.5-8.0) 6.6 g/dL 01/18/25 Albumin, (3.5-5.0) 3.8 g/dL 01/18/25 Support Current oral diet supplements: other (bariatric protein shakes recommended) Assessment Nutrition recommendation: provide multivitamin (Celebrate bariatric multivitamin with Iron, calcium separate), initiate supplement (protein shake low in added sugar-fairlife or celebrate) and RD nutrition education (small, frequent meals, high protein) Comment: Will tweak plan as pt tolerance improves and GI findings become available Focused findings Nutrition-focused findings: abdominal pain, heartburn, constipation, diarrhea, early satiety, nausea and vomiting Nutrition Needs Calculation Estimated protein needs (gm/day): 70 (1-1.2gm/kg/day) Diagnosis Nutrition problem #1: malnutrition (anemia at minimum, hair loss), food nutri know defi, undesirable food choices (bariatric lifestyle not maintained post op) and inadequate protein energy As related to (etiology) #1: altered metabolism nutri (history of gastric bypass), aversion to food/beverage (related to gastric bypass and food choices), inadeq diet over 5 days, inadequate oral intake, unsure how to apply info and increased PRO needs As evidenced by (sign/symptom) #1: food recall, poor PO intake, constipation, diarrhea, knowledge deficit of diet, vomiting and nausea Monitoring/Goals Nutrition problem monitoring: total energy intake, level of knowledge/skill, total PRO intake and oral fluids Nutrition goal/outcome: list 3 high fiber foods Outcome comment: maxmize protein and micronutrient intake Outcome progress: verbalized understanding Learning/Education Readiness to learn: excellent Stages of change: action Educational materials provided: Yes (snack and grocery guide) Date of nutrition screenin04/20/25 (pt will call RD for follow up after getting work schedule) Follow-up details: pt will purchase bariatric products next week at [facility] cafe Follow up Follow-up frequency: monthly Time Outcome assessment time: 60 minutes [facility] Medical History (Updated 01/31/25 @ 01:07 by Ronny Lan MD) Vitamin D deficiency Obesity (BMI 30-39.9) Constipation GERD without esophagitis Gastritis Asthma Overweight (BMI 25.0-29.9) ZHOU positive Varicose veins of bilateral lower extremities with pain Surgical History History of loop electrical excision procedure (LEEP) History of esophagogastroduodenoscopy (EGD) Hx of colonoscopy Hx of laparoscopy Status post laser ablation of incompetent vein H/O tubal ligation Hx of cholecystectomy (~2014) H/O gastric bypass (~2018) Family History Father HTN (hypertension) Diabetes mellitus Mother HTN (hypertension) Diabetes mellitus Asthma Brother No problems noted. Brother No problems noted. Brother No problems noted. Brother No problems noted. Sister No problems noted. Daughter No problems noted. Son No problems noted. Son No problems noted. Paternal Aunt Breast cancer Family/Other Colon cancer Maternal Aunt Ovarian cancer Social History Household Members: Spouse Housing: House Are you a primary spiritual care coordinator to a significant other at home: No Do you presently have visiting nurse or other home services: No Alcohol intake: never Patient Tobacco Use Status: Never used Tobacco e-Cigarette/Vaping Use: Never Used Second Hand Smoke Exposure: No service: No Current occupational status: employed Cognitive needs: No Hearing needs: No Vision needs: Yes (Glasses) Female Reproductive History Menstrual Age of Menarche: 14 Review of Systems GI Reports constipation (uses coconut oil by the TBSP due to iron pills), Reports early satiety, Reports diarrhea (question if dumping syndrome), Reports nausea (with many foods) and Reports vomiting (when overeats) Assessment & Plan Assessment & Plan (1) H/O gastric bypass: Onset Date: ~2017 Comment: done in [place] Code(s): Z98.84 - Bariatric surgery status Category: Surgical Plan 1. start bariatric multivitamin 2. add 1/2 fairlife shake to coffee BID (30 gm protein total) 3. increase water intake in between meals and snacks 4. follow meal plan of small frequent meals aiming for 70-80 gm protein per dayas written out by RD with water IN BETWEEN 8am coffee with half 30 gm fairlife shake 11am 2 eggs with fruit or veggies 1/2 cup 2pm 2 oz meat and fruit or vegetable 1/2 cup 5pm other half of fairlife shake 8pm 1/2 sandwich with turkey 2 oz and veggies Coding Level of Care Code Nutr Indiv Intake (95642) Diagnoses H/O gastric bypass Z98.84
--- OUTSIDE RECORDS SUMMARY | 2025-04-20 12:33 | XMS_ITS | Patient Health Record ---
Author Organization [facility] Address [address] [address] Care Team Providers Care Aquatic Laborer Name Role Phone Kiana Hillman MD Primary Care Provider Unavailable Zacarias Mayorga Unavailable [phone] Reason For Referral No Information Medications Medication SIG (Take, Route, Frequency, Duration) Notes Start Date End Date Status metFORMIN HCl 500 MG 1 tablet with meals Orally Twice a day Active Vitamin D (Ergocalciferol) 12586 UNIT 1 capsule Orally Active traZODone HCl 50 MG 1 tablet at bedtime as needed Orally Once a day Active Reglan 10 MG Orally Active PredniSONE 10 MG 1 tablet Orally Once a day Active Naproxen 500 MG 1 tablet as needed Orally every 12 hrs Active Omeprazole 20 MG 1 capsule Orally Onc e a day Active hydroCHLOROthiazide 25 MG 1 tablet in th e morning Orally Once a day Active Pentoxifylline ER 400 MG 1 tablet with m eals Orally Twice a day Active Cimetidine 200 MG 1 tablet as needed Orally Twice a day Active Sertraline HCl 100 MG 1 tablet Orally On ce a day Active Amitriptyline HCl 25 MG 1 tablet Orally Once a day Active Lisinopril 40 MG 1 tablet Orally Once a day Active Aspir-81 81 MG 1 tablet Orally Once a day Active ProAir HFA 108 (90 Base) MCG/ACT 2 puffs as needed Inhalation every 4 hrs Active Fioricet 50-300-40 MG 1 capsule as neede d Orally every 4 hrs Active Social History Tobacco Use: Social History Observation Description Date Details (start date - stop date) Never Smoker NA - NA Tobacco Use Question Answer Notes Do you smoke? never smoker Problems Problem Type SNOMED Code ICD Code Onset Dates Problem Status W/U Status Risk Notes Problem Pain co-occurrent and due to varicose veins of left leg ([id number]) Varicose veins of left lower extremities with pain (I83.812) Active confirmed Plan Of Treatment No Information Insurance Providers Payer Name Payer Address Payer Phone Subscriber Number Group Number Insured Name Patient Relationship to Insured Coverage Start Date Coverage End Date Medicaid [address] [place] [address] [id number] Linnette Dunne Self - patient is the insured Medical (General) History Medical History History ICD Code 1. Varicose Veins 2. Lupus; lab diagnosed 3. Claudication 4. Hypertension 5. Asthma 6. Gastro_Esophageal Reflux Disease 7. Non Smoker
== END 2025-04-20 14:13 | disposition home or self-care (01) ==
LOC: HO.HMCCN 11:10
PROVIDERS: PCP Internal Medicine; Visit Provider Dietitian, Registered
DX: Z98.84 Bariatric surgery status (principal)

== ENCOUNTER → 2025-04-20 11:10 | Outpatient (BNVA) | payer OTHER, SELFPAY | PROVIDERS: PCP Internal Medicine; Visit Provider Dietitian, Registered | DX: K86.81 Exocrine pancreatic insufficiency (principal); K21.9 Gastro-esophageal reflux disease without esophagitis; R10.13 Epigastric pain; K59.00 Constipation, unspecified; R14.0 Abdominal distension (gaseous); R19.7 Diarrhea, unspecified; Z98.84 Bariatric surgery status | CPT/HCPCS: 97802; 99212 ==

== ENCOUNTER 2025-04-20 16:10 | Outpatient (AMB) | payer OTHER, SELFPAY ==
--- NOTE | 2025-04-20 16:16 | MHC.OFFVIS ---
Vital Signs 04/20/25 16:17 Height 5 ft 1 in Weight 162 lb BMI 30.6 BP 124/60 Blood Pressure Location Lt brachial Position Sitting Pulse 73 Pulse Oximetry (%) 98 Intake Visit Reasons: 3m Intake Note: Patient 3 month follow up for abdominal pain. Patient cc: N/V on and off, Left lower abdominal pain with burning sensation, constipation is much better and dizziness. Denies any other GI issues. Probate Paralegal Required: No Accompanied by: Self / Same As Patient Allergies No Known Allergies (No Known Allergies*) Allergy (Verified 04/20/25 16:16) HPI HPI 3m: Details: LAST VISIT: Depression Abdominal pain GERD without esophagitis Exocrine pancreatic insufficiency IBS (irritable bowel syndrome) Abdominal pain, LUQ (left upper quadrant) Postprandial abdominal bloating Plan Patient will continue current management with Nexium. Avoid dietary triggers. Patient will continue taking Creon with meals. Patient will keep her appointment with therapist this week as well as the 1 that she will see in the near future. Patient denies SI or HI. Feel safe to go home. Here for today throughout the visit. Patient believes that her symptoms are related to her stress. She will call us if she will have any GI concerning symptoms or if she will get worse. Patient was encouraged to go to ED if she will have worsening symptoms. She is agreeable to current plan of care and verbalizes understanding of instructions. She was given the opportunity to ask questions and all questions answered. ? TODAY'S VISIT: Patient is here today for follow-up. Patient reports that she continues to have epigastric pain and occasional acid reflux. Patient states that she is taking Nexium daily. It could be that her symptoms are exacerbated due to some stress that she is dealing with at work. Patient is trying to get back to work in May and trying to figure out her schedule. Patient reports occasional abdominal bloating. Patient reports that she is eating smaller meals 2 to 3 times a day. Patient reports that she is moving her bowels without any issues taking senna and MiraLax as needed. Patient denies any nausea or vomiting. Denies melena, hematochezia, unintentional weight loss or ribbon like stools. Denies dyspepsia, dysphagia or odynophagia. FORMERLY [facility], [facility]–1983 Medical History (Updated 01/31/25 @ 01:07 by Ronny Lan MD) Vitamin D deficiency Obesity (BMI 30-39.9) Constipation GERD without esophagitis Gastritis Asthma Overweight (BMI 25.0-29.9) ZHOU positive Varicose veins of bilateral lower extremities with pain Surgical History History of loop electrical excision procedure (LEEP) History of esophagogastroduodenoscopy (EGD) Hx of colonoscopy Hx of laparoscopy Status post laser ablation of incompetent vein H/O tubal ligation Hx of cholecystectomy (~2014) H/O gastric bypass (~2018) Family History Father HTN (hypertension) Diabetes mellitus Mother HTN (hypertension) Diabetes mellitus Asthma Brother No problems noted. Brother No problems noted. Brother No problems noted. Brother No problems noted. Sister No problems noted. Daughter No problems noted. Son No problems noted. Son No problems noted. Paternal Aunt Breast cancer Family/Other Colon cancer Maternal Aunt Ovarian cancer Social History Household Members: Spouse Housing: House Are you a primary rn transitional care to a significant other at home: No Do you presently have visiting nurse or other home services: No Alcohol intake: never Patient Tobacco Use Status: Never used Tobacco e-Cigarette/Vaping Use: Never Used Second Hand Smoke Exposure: No service: No Current occupational status: employed Cognitive needs: No Hearing needs: No Vision needs: Yes (Glasses) Female Reproductive History Menstrual Age of Menarche: 14 Review of Systems Const Denies weight gain and Denies weight loss ENT Reports no additional complaints, Denies dysphagia and Denies odynophagia Card Reports no additional complaints Resp Reports no additional complaints GI Denies abdominal pain, Denies belching, Denies melena, Denies bloating, Denies change in bowel habits, Denies dysphagia, Denies excessive flatus, Denies dyspepsia, Denies heartburn, Denies diarrhea, Denies loose stools, Denies nausea, Denies odynophagia and Denies vomiting Musc Reports no additional complaints Neuro Reports no additional complaints Psych Reports no additional complaints Endo Reports no additional complaints Physical Exam Const General: healthy appearing and no acute distress Nutritional Appearance: obese Orientation/consciousness: patient oriented x3 Resp Effort & Inspection: normal respiratory effort, able to speak in complete sentences, no tracheal deviation and symmetric chest movement Auscultation: clear to auscultation bilaterally Cardio Rate: regular rate GI Inspection: Yes normal to inspection, No distended and Yes obesity Palpation (GI): Soft to palpation, not firm, Tenderness to palpation present (GI) in the LUQ and No hepatosplenomegaly present Auscultation: Hyperactive bowel sounds present General: Yes no CVA tenderness Back/Spine/Pelvis Back: no CVA tenderness Skin General skin exam: elasticity normal, turgor normal and dry skin Neuro General: patient oriented x3 Psych Appearance: grossly normal Mental Status: mental status grossly normal Assessment & Plan Assessment & Plan (1) GERD without esophagitis: Code(s): K21.9 - Gastro-esophageal reflux disease without esophagitis Category: Medical (2) Exocrine pancreatic insufficiency: Code(s): K86.81 - Exocrine pancreatic insufficiency Category: Medical (3) Abdominal pain: Code(s): R10.9 - Unspecified abdominal pain Category: Medical Qualifiers: Abdominal location: epigastric Qualified Code(s): R10.13 - Epigastric pain (4) Constipation: Code(s): K59.00 - Constipation, unspecified Category: Medical Qualifiers: Constipation type: unspecified constipation type Qualified Code(s): K59.00 - Constipation, unspecified (5) Postprandial abdominal bloating: Code(s): R14.0 - Abdominal distension (gaseous) Plan Will change PPI to pantoprazole 40 mg daily. Avoid dietary triggers like that snacking. Will check vitamin B12, folate, vitamin a and vitamin K. Patient will start taking vitamin-D low levels found before. Currently patient is not taking any supplements. Continue taking regimen for bowel movements (mean MiraLax and senna). Increase fluid intake and activity to promote better bowel motility. Follow-up in 3 months, sooner on as needed basis. She is agreeable to this plan and verbalizes understanding of instructions. She was given the opportunity to ask questions and all questions answered. Thank you for allowing me to participate in her care Orders: Orders Vitamin B12 and Folate Today R19.7 - Diarrhea, unspecified Vitamin A Today K86.89 - Other specified diseases of pancreas Vitamin K1 Today R10.9 - Unspecified abdominal pain Medications: New pantoprazole take one tablet half an hour before breakfast 40 mg PO DAILY 30 tabs 3RF K21.9 - Gastro-esophageal reflux disease without esophagitis cholecalciferol (vitamin D3) 50 mcg PO DAILY 90 caps 3RF R79.89 - Other specified abnormal findings of blood chemistry Discontinued esomeprazole magnesium (Nexium) Discontinued Reason: Doctor's Order 20 mg PO DAILY 30 caps 4RF Coding Level of Care Code Est Pt Level 4 (56707) Complex EM visit Add On G2211 Diagnoses GERD without esophagitis K21.9 Exocrine pancreatic insufficiency K86.81 Epigastric pain R10.13 Abdominal location: epigastric Constipation, unspecified constipation type K59.00 Constipation type: unspecified constipation type Postprandial abdominal bloating R14.0 Time Spent (min) 35 Comment 25 minutes spent with patient and additional 10 minutes spent reviewing her records
[2025-04-20 16:17] VITALS: BP 124/60; PULSE 73; O2SAT 98; BMI 30.6
== END 2025-04-20 16:39 | disposition home or self-care (01) ==
LOC: HO.HGI 16:10
PROVIDERS: PCP Internal Medicine; Visit Provider Nurse Practitioner Family
DX: K21.9 Gastro-esophageal reflux disease without esophagitis (principal); K86.81 Exocrine pancreatic insufficiency; R10.13 Epigastric pain; K59.00 Constipation, unspecified; R14.0 Abdominal distension (gaseous)
CPT/HCPCS: 99214; G2211

== ENCOUNTER 2025-05-29 07:49 | Outpatient (REF) | payer OTHER, SELFPAY ==
--- OUTSIDE RECORDS SUMMARY | 2025-05-29 07:51 | XMS_ITS | Encounter Summary ---
Author Organization [facility] Address [address] [facility] [facility] [address] [place] [address] Phone Care Team Providers Care Demo Coordinator Name Role Phone Kiana Oquendo MD Primary Care Provider Kiana Oquendo MD Primary Care Provider Kiana Oquendo MD Unavailable [phone] Kendall Sprague MD Unavailable [phone] Ronny Lan MD Primary Care Provider [phone] Encounter Details Date Type Department Care Team (Late st Contact Info) Description 06/26/2017 Procedure Pass [facility] [address] [place] [address] Social History Tobacco Use Types Packs/Day Years Used Date Smoking Tobacco: Never Assessed Comments Unknown Sex and Gender Information Value Date Recorded Sex Assigned at Not on file Legal Sex Female 4:20 PM EDT Gender Identity Not on file Sexual Orientation Not on file documented as of this encounter Plan of Treatment Not on file documented as of this encounter Visit Diagnoses Not on filedocumented in this encounter Additional Health Concerns Assessment Noted Time PHQ-2 Depression Total Score: 0 06/26/20 17 11:32 AM EDT documented as of this encounter Care Teams Demo Coordinator Relationship Specialty Start Date End Date Kiana Oquendo MD [address] [facility] [address] [place] [address] PCP - General Family Medicine 05/13/17 12/26/17 Kiana Oquendo MD [address] [address] PCP - General Family Medicine 12/27/17 06/17/23 Ronny Lan MD [address] [place] [address] [place] [address] PCP - General Internal Medicine 06/18/23 Kiana Oquendo MD [address] [address] Historical LMR Provider 11/06/18 2 Kendall Sprague MD [address] [place] [address] [email or web address] Historical LMR Provider 11/06/18 documented as of this encounter Additional Source Comments The information contained in this document represents components of the legal health record. It is not the complete legal health record.[facility]
--- OUTSIDE RECORDS SUMMARY | 2025-05-29 07:51 | XMS_ITS | Patient Health Record ---
Author Organization [facility] Address [address] [address] Care Team Providers Care Nuclear Medicine Pet Ct Technologist Name Role Phone Kiana Hillman MD Primary Care Provider Unavailable Zacarias Mayorga Unavailable [phone] Reason For Referral No Information Medications Medication SIG (Take, Route, Frequency, Duration) Notes Start Date End Date Status metFORMIN HCl 500 MG 1 tablet with meals Orally Twice a day Active Vitamin D (Ergocalciferol) 76287 UNIT 1 capsule Orally Active traZODone HCl [...] due to varicose veins of left leg ([id number] 31820) Varicose veins of left lower extremities with pain (I83.812) Active confirmed Plan Of Treatment No Information Insurance Providers Payer Name Payer Address Payer Phone Subscriber Number Group Number Insured Name Patient Relationship to Insured Coverage Start Date Coverage End Date Medicaid [address] [place] [address] [phone] [id number] Linnette Dunne Self - patient is the insured Medical (General) History Medical History History ICD Code 1. Varicose Veins 2. Lupus; lab diagnosed 3. Claudication 4. Hypertension 5. Asthma 6. Gastro_Esophageal Reflux Disease 7. Non Smoker
[2025-05-29 08:59] LABS: Appearance Urine Clear; Glucose Urine UA Negative (Negative); PH 7.0 (5.0-9.0); Specific Gravity - Urine 1.025 (1.005-1.025); UMIC TRIGGER UACC YES
[2025-05-29 09:11] LABS: UACC Culture Trigger YES
[2025-05-29 09:51] LABS: Folate 13.4 ng/mL (> or = 4.0); Vitamin B12 416 pg/mL (200-900)
== END 2025-05-29 07:50 | disposition home or self-care (01) ==
LOC: HO.LAB 07:49
PROVIDERS: PCP Internal Medicine; Visit Provider Nurse Practitioner Family
DX: K21.9 Gastro-esophageal reflux disease without esophagitis (principal); R19.7 Diarrhea, unspecified; R10.9 Unspecified abdominal pain; K86.89 Other specified diseases of pancreas; H81.10 Benign paroxysmal vertigo, unspecified ear; H93.11 Tinnitus, right ear; R03.0 Elevated blood-pressure reading, without diagnosis of hypertension; T14.8XXA Other injury of unspecified body region, initial encounter; D50.0 Iron deficiency anemia secondary to blood loss (chronic); N94.6 Dysmenorrhea, unspecified; D50.9 Iron deficiency anemia, unspecified; J45.20 Mild intermittent asthma, uncomplicated; E66.3 Overweight
CPT/HCPCS: 36415; 81001; 82607; 82746; 82947; 84590; 84597; 87086; 87088; 87186

== ENCOUNTER 2025-06-11 16:05 | Outpatient (AMB) | payer OTHER, SELFPAY ==
--- NOTE | 2025-06-11 16:06 | MHC.PC.OV ---
Vital Signs 06/11/25 16:07 Height 5 ft 1 in Weight 161 lb 6 oz BMI 30.5 BP 118/70 Blood Pressure Location Lt brachial Position Sitting Pulse 74 Pulse Source Pulse Oximeter Pulse Oximetry (%) 97 Oxygen Delivery Method Room Air Intake Visit Reasons: 4 Months Heating Equipment Installer Required: No Accompanied by: Self / Same As Patient Allergies No Known Allergies (No Known Allergies*) Allergy (Verified 06/11/25 16:25) Medication List - Last Reconciled 06/11/25 by Ronny Lan MD acetaminophen 650 mg PO Q6H PRN albuterol sulfate 90 mcg/actuation (ProAir HFA) 1 inh inhalation QID PRN 30 days buspirone mg PO cholecalciferol (vitamin D3) 50 mcg PO DAILY 90 days cholecalciferol (vitamin D3) 50 mcg PO DAILY clonazepam 0.5 mg PO DAILY PRN escitalopram oxalate 10 mg PO QAM ferrous sulfate 325 mg PO DAILY fluticasone propionate 50 mcg/actuation 1 spray intranasal BID ibuprofen 600 mg PO Q8H PRN [id number]-rhhdlhs 24,000-76,000 -120,000 unit (Creon) 1 cap PO QID pantoprazole 40 mg PO QAM sennosides (Natural Senna Laxative) 17.2 mg (2 x 8.6 mg) PO BEDTIME Tobacco use date assessed: 06/11/25 Dental Screening Dental Screen Date: 06/11/25 Did you have a dental visit in the last 12 months?: Yes Did you have a dental problem in the last 6 months where you did not have access to dental care?: No Was dental information given to patient?: Patient has dentist HPI 4 Months HPI Details Patient comes in today for her follow up visit States that she currently feels okay She is now back at work since 05/11/2025 and is now working 1st shift and that her previous symptoms of recurrent headaches and increased depression are not much better controlled She denies any dizziness Denies any chest pains, no SOB No nausea/vomiting, no abdominal pain No change in bowel habits noted [facility] Medical History Vitamin D deficiency Obesity (BMI 30-39.9) Constipation GERD without esophagitis Gastritis Asthma Overweight (BMI 25.0-29.9) ZHOU positive Varicose veins of bilateral lower extremities with pain Surgical History History of loop electrical excision procedure (LEEP) History of esophagogastroduodenoscopy (EGD) Hx of colonoscopy Hx of laparoscopy Status post laser ablation of incompetent vein H/O tubal ligation Hx of cholecystectomy (~2015) H/O gastric bypass (~2018) Family History Father HTN (hypertension) Diabetes mellitus Mother HTN (hypertension) Diabetes mellitus Asthma Brother No problems noted. Brother No problems noted. Brother No problems noted. Brother No problems noted. Sister No problems noted. Daughter No problems noted. Son No problems noted. Son No problems noted. Paternal Aunt Breast cancer Family/Other Colon cancer Maternal Aunt Ovarian cancer Social History Household Members: Spouse Housing: House Are you a primary intensive care anaesthetist to a significant other at home: No Do you presently have visiting nurse or other home services: No Alcohol intake: never Patient Tobacco Use Status: Never used Tobacco e-Cigarette/Vaping Use: Never Used Second Hand Smoke Exposure: No service: No Current occupational status: employed Cognitive needs: No Hearing needs: No Vision needs: Yes (Glasses) Female Reproductive History Menstrual Age of Menarche: 14 Questionnaire PHQ-9 Over the last 2 weeks, how often have you been bothered by any of the following problems? 1. Little interest or pleasure in doing things: not at all 2. Feeling down, depressed, or hopeless: nearly every day 3. Trouble falling or staying asleep, or sleeping too much: nearly every day 4. Feeling tired or having little energy: nearly every day 5. Poor appetite or overeating: several days 6. Feeling bad about yourself - or that you are a failure or have let yourself or your family down: not at all 7. Trouble concentrating on things, such as reading the newspaper or watching television: more than half the days 8. Moving or speaking so slowly that other people could have noticed. Or the opposite - being so fidgety or restless that you have been moving around a lot more than usual: more than half the days 9. Thoughts that you would be better off or of hurting yourself in some way: not at all Total score: 14 Depression Screening Interpretation: Positive Depression Screening Follow-up: Existing condition and In treatment Depression Screening Done: Yes 34673 - PHQ-9 Billing: Yes Source: Developed by Drs. Merritt Vargas, Nicole Lagunas, Natan Ceron and colleagues, with an educational ludmila from [employer]. Thrive Questionnaire Date Thrive assessed: 06/11/25 I am a: Patient What is your living situation today?: I have a steady place to live Within the past 12 months, did the food you bought not last and you didn't have the money to get more?: Never true Within the past 12 months, did you worry whether your food would run out before you got money to buy more?: Never true Do you have trouble paying for medicines?: No Do you have trouble getting transportation to medical appointments?: No Do you have trouble paying your heating and electricity bill?: No Do you have trouble taking care of your child, family member or friend?: No Do you have trouble with day-to-day activities such as bathing, preparing meals, shopping, managing finances, etc.?: No Are you currently unemployed and looking for a job?: No Are you interested in more education?: No Please select the resources that you would like help with: None Currently or been in a relationship where the following occur: No concerns reported THRIVE Score: 0 AUDIT C Alcohol Use Questionnaire (AUDIT-C) 1. How often do you have a drink containing alcohol?: Never 3. How often do you have six or more drinks on one occasion?: Never Total Score: 0 Score Reviewed/Action Taken: Yes LUISITO-7 AMB Questionnaire LUISITO-7 Date LUISITO - 7 assessed: 06/11/25 Feeling nervous, anxious, or on edge: 0 = Not at all Not being able to stop or control worryin = Not at all Worrying too much about different things: 0 = Not at all Trouble relaxin = Not at all Being so restless that it is hard to sit still: 0 = Not at all Becoming easily annoyed or irritable: 0 = Not at all Feeling afraid as if something awful might happen: 0 = Not at all Total LUISITO-7 score (0-4 normal; 5-9 mild; 10-14 moderate; 15-21 severe): 0 Source: Developed by Drs. Merritt Vargas, Nicole Lagunas, Natan Ceron and colleagues, with an educational ludmila from [employer]. Review of Systems Const Denies chills, Denies difficulty sleeping, Denies fatigue, Denies fever(s) and Denies headache(s) ENT Denies dysphagia, Denies dizziness, Denies otalgia, Denies headache(s), Denies neck pain, Denies odynophagia and Denies sore throat Card Denies chest pain, Denies irregular heart rhythm, Denies palpitations and Denies dyspnea Resp Denies chest congestion, Denies cough and Denies dyspnea GI Denies abdominal pain, Denies constipation, Denies dysphagia, Denies heartburn, Denies diarrhea, Denies nausea, Denies odynophagia and Denies vomiting Denies difficulty voiding, Denies dysuria and Denies urinary urgency Musc Denies back pain, Reports arthralgias (over the right knee medially) and Denies neck pain Skin/Breast Denies rash Neuro Denies dizziness, Denies headache(s) and Denies paresthesias Psych Denies anxiety and Reports depression (better controlled - is seeing therapist at [facility]) Endo Denies fatigue and Denies palpitations Efrem/Lymph Denies easy bruising Physical exam (Primary Care) Vital Signs: Last Vital Signs Pulse 74 06/11/25 16:07 BP 118/70 06/11/25 16:07 Pulse Ox 97 06/11/25 16:07 Oxygen Delivery Method Room Air 06/11/25 16:07 BMI result Body Mass Index 30.5 Tobacco/Smoking Status: Tobacco use Status Tobacco use date assessed 06/11/25 06/11/25 16:16 Patient Tobacco Use Status Never used Tobacco 06/11/25 16:16 e-Cigarette/Vaping Use Never Used 06/11/25 16:16 PHQ-9: PHQ-9 Score PHQ-9: Total score 14 06/11/25 16:27 Depression Screening Interpretation: Positive Depression Screening Follow-up: Existing condition and In treatment Thrive Assessment: Date of Thrive Assessment Date Thrive assessed 06/11/25 06/11/25 16:16 Currently or been in a relationship where the following occur: No concerns reported Const General: no acute distress and alert HENMT Ears: TM's normal bilaterally and EAC's normal Throat: Yes posterior oropharynx normal and Yes tonsils normal (no TP congestion) Neck Neck: Yes supple and No lymphadenopathy Thyroid: Thyroid normal Resp Auscultation: clear to auscultation bilaterally, no rales and no wheezes Cardio Rate: regular rate Rhythm: regular rhythm Heart sounds: no murmurs GI Palpation (GI): Soft to palpation and nontender Auscultation: normal bowel sounds General: Yes no CVA tenderness Back/Spine/Pelvis Back: no CVA tenderness Thoracic/Lumbar Spine: No lumbar spinal tenderness Skin Rashes: no rashes Extrem General: Yes no clubbing, cyanosis or edema Results Reviewed Results Reviewed: Laboratory Tests 05/29/25 05/29/25 08:25 08:30 Fasting Glucose 98 Vitamin A 47 Vitamin B12 416 Vitamin K1 207 Ur Specific [place] 1.025 Urine Protein Negative Urine Glucose (UA) Negative Urine Blood Negative Urine Nitrite Negative Ur Leukocyte Esterase Small (1+) H Coding Level of Care Code Est Pt Level 4 (56210) Diagnoses Nonintractable headache, unspecified chronicity pattern, unspecified headache type R51.9 Headache chronicity pattern: unspecified pattern Headache type: unspecified Intractability: not intractable Chronic superficial gastritis without bleeding K29.30 Chronicity: chronic Gastritis bleeding: without bleeding Gastritis type: superficial Intermittent asthma without complication, unspecified asthma severity J45.20 Asthma complication type: uncomplicated Asthma persistence: intermittent Asthma severity: unspecified severity Anemia, unspecified type D64.9 Anemia type: unspecified type Vitamin D deficiency E55.9 Constipation, unspecified constipation type K59.00 Constipation type: unspecified constipation type Primary osteoarthritis of right knee M17.11 Other depression F32.89 Depression Type: other depression Obesity (BMI 30-39.9) E66.9 Additional Codes PHQ-9 - 43750 - PHQ-9 Billing: Yes ([id number]) Assessment & Plan Assessment & Plan (1) Headache: Code(s): R51.9 - Headache, unspecified Category: Medical Qualifiers: Headache chronicity pattern: unspecified pattern Headache type: unspecified Intractability: not intractable Qualified Code(s): R51.9 - Headache, unspecified Plan: Better controlled/resolved - these were most likely tension-headaches or muscle contraction headaches associated primarily with her increased stress and anxiety/depression earlier this year Continue Vitamin B2 1 tablet QD and Ibuprofen or Acetaminophen PRN Continue Vitamin B2 QD - this has been known to help with chronic headaches/migraine (2) Gastritis: Code(s): K29.70 - Gastritis, unspecified, without bleeding Category: Medical Qualifiers: Chronicity: chronic Gastritis bleeding: without bleeding Gastritis type: superficial Qualified Code(s): K29.30 - Chronic superficial gastritis without bleeding Plan: EGD done in January 2023 revealed (+) findings of moderate chronic active gastritis Patient states that symptoms have improved significantly with Tx with her current Rx Continue Nexium 40 mg QD Follow up with GI as scheduled (3) Asthma: Code(s): J45.909 - Unspecified asthma, uncomplicated Category: Medical Qualifiers: Asthma complication type: uncomplicated Asthma persistence: intermittent Asthma severity: unspecified severity Qualified Code(s): J45.20 - Mild intermittent asthma, uncomplicated Plan: Controlled - continue Albuterol HFA 2 inhalations Q 6 hours PRN (4) Anemia: Code(s): D64.9 - Anemia, unspecified Category: Medical Qualifiers: Anemia type: unspecified type Qualified Code(s): D64.9 - Anemia, unspecified Plan: Corrected - her H/H was normal at 13.2/42.2 when last checked in January 2025 This was most likely due to a combination of iron-deficiency and her heavy menstrual bleeding Continue Ferrous Sulfate 325 mg QD Will continue to monitor her CBC regularly (5) Vitamin D deficiency: Code(s): E55.9 - Vitamin D deficiency, unspecified Category: Medical Plan: Continue vitamin D3 2000 units QD (6) Constipation: Code(s): K59.00 - Constipation, unspecified Category: Medical Qualifiers: Constipation type: unspecified constipation type Qualified Code(s): K59.00 - Constipation, unspecified Plan: Improved; reinforced increased oral fluids and dietary fiber intake Continue Miralax 17 gm QD and OTC stool softeners PRN for symptomatic relief (7) Primary osteoarthritis of right knee: Code(s): M17.11 - Unilateral primary osteoarthritis, right knee Category: Medical Plan: Right knee x-rays done in January 2025 revealed (+) osteoarthrosis, mild to moderate in the medial and lateralcompartments, and moderate to severe in the patellofemoral compartment Will consider referral to orthopedics for further management if her knee continues to bother her (8) Depression: Code(s): F32.A - Depression, unspecified Category: Medical Qualifiers: Depression Type: other depression Qualified Code(s): F32.89 - Other specified depressive episodes Plan: Patient appears to be experiencing increased anxiety and depression over the past year, mostly related to her job and with the fact that she has to work third shift She has been out of work on medical leave for a while now and does not feel that she is ready to return to work yet - is currently due to go back to work early next month (February 2025) Patient declines offer to start her on Rx to help with her mood disorder She has been seeing a therapist at [facility] for a while and states that they are presently trying to get her in to see psychiatry GLEN - she will find out more on this at her next appt with them on 02/03/25 (9) Obesity (BMI 30-39.9): Comment: (+) Hx of gastric bypass in 2018 in [place] Code(s): E66.9 - Obesity, unspecified Category: Medical Plan: Reinforced diet/exercise as tolerated/lose weight Plan To return in 4 months for her annual physical examination Patient is reminded to get her follow up labs done just before she returns in a few months Orders: Orders Lipid Panel 4 Months E78.00 - Pure hypercholesterolemia, unspecified, Z00.00 - Encounter for general adult medical examination without abnormal findings Vitamin B12 and Folate 4 Months E53.8 - Deficiency of other specified B group vitamins, Z00.00 - Encounter for general adult medical examination without abnormal findings Complete Blood Count Auto Diff 4 Months D64.9 - Anemia, unspecified, Z00.00 - Encounter for general adult medical examination without abnormal findings Comprehensive [place]. Panel Fast 4 Months E78.00 - Pure hypercholesterolemia, unspecified, Z00.00 - Encounter for general adult medical examination without abnormal findings TSH reflex Free T4 4 Months E78.00 - Pure hypercholesterolemia, unspecified, Z00.00 - Encounter for general adult medical examination without abnormal findings UA CC w/rflx Micro + Cult 4 Months R30.0 - Dysuria, Z00.00 - Encounter for general adult medical examination without abnormal findings Vitamin D 25-OH Total 4 Months E55.9 - Vitamin D deficiency, unspecified, Z00.00 - Encounter for general adult medical examination without abnormal findings
[2025-06-11 16:07] VITALS: BP 118/70; PULSE 74; O2SAT 97; BMI 30.5
--- OUTSIDE RECORDS SUMMARY | 2025-06-11 16:08 | XMS_ITS | Encounter Summary ---
Author Organization [facility] Address [address] [place] [address] Phone Care Team Providers Care Maternity Floor Supervisor Name Role Phone Ronny Lan MD Primary Care Provider [phone] Encounter Details Date Type Department Care Team (Late st Contact Info) Description 08/26/2023 Procedure Pass OR Admitting Dept - Virtual Department [address] [place] [address] Social History Tobacco Use Types Packs/Day Years Used Date Smoking Tobacco: Never Smokeless Tobacco: Never Alcohol Use Standard Drinks/Week Comments No 0 (1 standard drink = 0.6 oz pur e alcohol) Education Answer Date Recorded Are you interested in more education? Not on praneeth e 02/01/2023 Are you concerned about learning? Not on file 02/01/2023 No 02/01/2023 No 02/01/2023 Digital Access Answer Date Recorded No 03/04/2023 No 03/04/2023 Reliable internet access at home? Not on file 03/04/2023 Device with a working camera? Not on file Comments No Sex and Gender Information Value Date Recorded [...] documented as of this encounter Care Teams Maternity Floor Supervisor Relationship Specialty Start Date End Date Ronny Lan MD [address] [place] [address] [address] [place] [address] PCP - General Internal Medicine 06/18/23 documented as of this encounter Additional Source Comments The information contained in this document represents components of the legal health record. It is not the complete legal health record.[facility]
--- OUTSIDE RECORDS SUMMARY | 2025-06-11 16:08 | XMS_ITS | Encounter Summary ---
Author Organization [facility] Address [address] [facility] [address] [facility] [place] [address] Phone Care Team Providers Care Data Lead Name Role Phone Kiana Oquendo MD Primary Care Provider Kiana Oquendo MD Unavailable [phone] Kendall Sprague MD Unavailable [phone] Ronny Lan MD Primary Care Provider + [phone] Encounter Details Date Type Department Care Team (Latest Contact Info) Description 04/17/2018 Transcribe Orders [facility] Vein [facility] [place] [address] [place] [address] Xuan Grimes MD [address] [place] [id number] [email or web address] Varicose veins of right lower extremity with complications (Primary Dx) Social History Tobacco Use Types Packs/Day Years Used Date Smoking Tobacco: Never Smokeless Tobacco: Never Alcohol Use Standard Drinks/Week Comments No 0 (1 standard drink = 0.6 oz pur e alcohol) Comments No Sex and Gender Information Value Date Recorded Sex Assigned at Not on file Legal Sex Female 4:20 PM EDT Gender Identity Not on file Sexual Orientation Not on file documented as of this encounter Plan of Treatment Not on file documented as of this encounter Results * Vein Center Ultrasound (04/17/2018 7:56 AM EDT) Narrative [facility] - 04/17/2018 7:56 AM EDT This study is for PACS storage only and not for interpretation. us Xuan Grimes MD IMG POINT OF CARE EXAMS Fin al Result [facility] documented in this encounter Visit Diagnoses Diagnosis Varicose veins of right lower extremity with complications- Primary documented in this encounter Additional Health Concerns Assessment Noted Time PHQ-2 Depression Total Score: 0 06/26/20 11:32 AM EDT documented as of this encounter Care Teams Data Lead Relationship Specialty Start Date End Date Kiana Oquendo MD [address] [address] PCP - General Family Medicine 12/27/17 06/17/23 Ronny Lan MD [address] [place] [address] [place] [address] PCP - General Internal Medicine 06/18/23 Kiana Oquendo MD [address] [address] Historical LMR Provider 11/06/18 2 Kendall Sprague MD [address] [place] [address] [email or web address] LMR Provider 11/06/18 documented as of this encounter Additional Source Comments The information contained in this document represents components of the legal health record. It is not the complete legal health record.[facility]
--- OUTSIDE RECORDS SUMMARY | 2025-06-11 16:08 | XMS_ITS | Encounter Summary ---
Author Organization [facility] Address [address] [facility] [address] [place] [address] Phone Care Team Providers Care Customs Verifier Name Role Phone Kiana Oquendo MD Primary Care Provider Kiana Oquendo MD Unavailable [phone] Kendall Sprague MD Unavailable [phone] Ronny Lan MD Primary Care Provider + [phone] Encounter Details Date Type Department Care Team (Latest Contact Info) Description 05/08/2018 Transcribe Orders [facility] Vein Center [address] [place] [address] Justus Mitcehll [address] [place] [address] [email or web address] Symptomatic varicose veins of left lower extremity (Primary Dx) Social History Tobacco Use Types [...] this encounter Results * Vein Center Ultrasound (05/08/2018 7:55 AM EDT) Narrative [facility] - 05/08/2018 7:55 AM EDT This study is for PACS storage only and not for interpretation. us Xuan Grimes MD IMG POINT OF CARE EXAMS Fin al Result [facility] documented in this encounter Visit Diagnoses Diagnosis Symptomatic varicose veins of left lower extremity- Primary documented in this encounter Additional Health Concerns Assessment Noted Time PHQ-2 Depression Total Score: 0 06/26/20 17 11:32 AM EDT documented as of this encounter Care Teams Customs Verifier Relationship Specialty Start Date End Date Kiana Oquendo MD [address] [address] PCP - General Family Medicine 12/27/17 06/17/23 Ronny Lan MD [address] [place] [address] [place] [address] PCP - General Internal Medicine 06/18/23 Kiana Oquendo MD [address] [place] [address] Historical LMR Provider 11/06/18 2 Kendall Sprague MD [address] [place] [address] [email or web address] Historical LMR Provider 11/06/18 documented as of this encounter Additional Source Comments The information contained in this document represents components of the legal health record. It is not the complete legal health record.[facility]
--- OUTSIDE RECORDS SUMMARY | 2025-06-11 16:08 | XMS_ITS | Encounter Summary ---
Author Organization [facility] Address [address] [address] Phone Care Team Providers Care Nursing Teacher Name Role Phone Kiana Oquendo MD Primary Care Provider Kiana Oquendo MD Primary Care Provider Kiana Oquendo MD Unavailable [phone] Kendall Sprague MD Unavailable [phone] Ronny Lan MD Primary Care Provider [phone] Encounter Details Date Type Department Care Team (Late st Contact Info) Description 07/10/2017 Ancillary Orders [facility] [address] [place] [address] Terence Santos MD [address] Nicki Guerrero [address] [address] Chest pain, unspecified type Social History Tobacco Use Types Packs/Day Years Used Date Smoking Tobacco: Never Assessed Comments Unknown Sex and Gender Information Value Date Recorded Sex Assigned at Not on file Legal Sex Female 4:20 PM EDT Gender Identity Not on file Sexual Orientation Not on file documented as of this encounter Plan of Treatment Not on file documented as of this encounter Results * NC Myocardial Perfusion Exercise Multiple (07/10/2017 2:23 PM EDT) Anatomical Region Laterality Modality Heart, Vascular Nuclear Medicine 07/10/2017 12:0 0 PM EDT Narrative 07/10/2017 3:[address] Santos, Your patient Linnette Dunne, a 46 year old female with no known CAD was referred to us for an exercise treadmill myocardial perfusion SPECT study to evaluate for non-anginal chest pain and dyspnea. Her cardiac risk factors include hypertension, dyslipidemia, diabetes, a family history of ischemic heart disease and obesity. The patient's resting ECG showed normal sinus rhythm. She was on the following medications at the time of testing: Amlodipine, Lisinopril, Hctz, Aspirin, Atorvastatin, Metformin, Excedrin, Topamax, Amitripyline. Exercise Tc-99m Sestamibi Rest/Stress SPECT Protocol: Ms. Dunne underwent a myocardial perfusion SPECT study following the IV administration of 6.7 mCi and 20.0 mCi of Tc-99m Sestamibi at rest and during peak stress, respectively. Gated myocardial perfusion SPECT images were obtained at rest and after peak stress. Rest and stress imaging was performed on 10-Jul-2017. Ms. Dunne exercised for 5:30 minutes of a Cole protocol. Oxygen saturation was measured at rest and stress using a pulse-oximeter. The heart rate increased from 63 bpm at rest to a peak heart rate of 164 bpm (93% age predicted maximal heart rate), and the blood pressure increased from 140/90 mm Hg at rest to 230/112 mm Hg at peak exercise (RPP: 01590). Oxygen saturation remained unchanged at 99% during exercise. Exercise was terminated due to dyspnea. The symptomatic response to exercise was non-ischemic. The blood pressure response was hypertensive throughout. The ECG response to exercise indicated no significant ST-T changes. During exercise, PAC's was observed. Ms. Dunne's functional capacity was 7 METS, which is fair for her age and gender. Her heart rate recovery was 28 bpm (normal HRR > 12 bpm). Her Carrasco treadmill score was 5.5 which places her at a low prognostic risk (lower than 1% mortality per year). Intensity Heart Blood RPE Speed (Grade Rate Pressure (Scale (MPH) or Bejarano) (bmp) (mm Hg) of 10) BASELINE Supine 63 140/90 Standing 71 148/104 STRESS Stage 1 1.7 10 144 190/106 5 Stage 2 2.5 12 164 230/112 RECOVERY 1 Minute 136 210/104 3 Minute 94 5 Minute 83 166/104 8 Minutes 88 142/106 Rest-Stress Perfusion Images: Image quality was excellent. The images demonstrated normal LV size and normal tracer uptake in the lungs. They also demonstrated normal RV size with normal RV tracer uptake at rest. There were no regional perfusion defects seen on the stress or rest images. Semi-quantitative analysis: The scan results demonstrated no evidence of ischemia and/or scar (summed stress score: 0). Reference %Myocardium Scan Results %Myocardium Magnitude of Abnormal Ischemic Ischemia 0-4% Normal 0% No ischemia 5-9% Mildly abnormal 1-4% Mild 10-19% Moderately abnormal 5-9% Moderate >=20% Severely abnormal >=10% Severe Gated SPECT: Demonstrated a post-stress LV ejection fraction of greater than 70% with normal LV volumes. There were no regional wall motion abnormalities. Demonstrated normal regional wall thickening. The RV function appeared normal. Ancillary findings: None. In summary, the test results were: 1. Functional Capacity: 7 METS 2. Peak Heart Rate: 164 bpm (93% age-predicted maximal heart rate). 3. Symptomatic Response: Non-ischemic. 4. Peak Blood Pressure: 230/112 mm Hg. 5. Blood Pressure Response: Hypertensive throughout. 6. ECG Response: Negative test for myocardial ischemia based on absence of ECG changes. 7. Stress-induced Arrhythmia: PAC's. 8. Myocardial Perfusion: Normal. 9. Global LV Function: Normal. Final impression: 1. The patient's test results are normal and suggest no evidence of flow-limiting CAD. 2. Normal global LV systolic function. Stress ECG tracings available from [facility]'s [employer]. Thank you for referring this patient to us. Sincerely yours, Juvenal Freeman M.D., Attending Physician Procedure Note Juvenal Freeman MD - 07/10/[address] Santos, Your patient Linnette Dunne, a 46 year old female with no known CAD wasreferred to us for an exercise treadmill myocardial perfusion SPECT studyto evaluate for non-anginal chest pain and dyspnea. Her cardiac riskfactors include hypertension, dyslipidemia, diabetes, a family history of ischemic heart disease andobesity. The patient's resting ECG showed normal sinus rhythm. She was on thefollowing medications at the time of testing: Amlodipine, Lisinopril,Hctz, Aspirin, Atorvastatin, Metformin, Excedrin, Topamax, Amitripyline. Exercise Tc-99m Sestamibi Rest/Stress SPECT Protocol: Ms. Dunne underwent a myocardial perfusion SPECT study following the IVadministration of 6.7 mCi and 20.0 mCi of Tc-99m Sestamibi at rest andduring peak stress, respectively. Gated myocardial perfusion SPECT imageswere obtained at rest and after peak stress. Rest and stress imaging was performed on 10-Jul-2017. Ms. Dunne exercised for 5:30 minutes of a Cole protocol. Oxygensaturation was measured at rest and stress using a pulse-oximeter. Theheart rate increased from 63 bpm at rest to a peak heart rate of 164 bpm(93% age predicted maximal heart rate), and the blood pressure increased from 140/90 mm Hg at rest to 230/112 mmHg at peak exercise (RPP: 51503). Oxygen saturation remained unchangedat 99% during exercise. Exercise was terminated due to dyspnea. The symptomatic response toexercise was non-ischemic. The blood pressure response was hypertensivethroughout. The ECG response to exercise indicated no significant ST-Tchanges. During exercise, PAC's was observed. Ms. Dunne's functional capacity was 7 METS, which is fair for her ageand gender. Her heart rate recovery was 28 bpm (normal HRR > 12 bpm).Her Carrasco treadmill score was 5.5 which places her at a low prognostic risk(lower than 1% mortality per year). Intensity Heart Blood RPE Speed (Grade Rate Pressure (Scale (MPH) or Bejarano) (bmp) (mm Hg) of 10) BASELINE Supine 63 140/90 Standing 71 148/104 STRESS Stage 1 1.7 10 144 190/106 5 Stage 2 2.5 12 164 230/112 RECOVERY 1 Minute 136 210/104 3 Minute 94 5 Minute 83 166/104 8 Minutes 88 142/106 Rest-Stress Perfusion Images: Image quality was excellent. The images demonstrated normal LV size andnormal tracer uptake in the lungs. They also demonstrated normal RV sizewith normal RV tracer uptake at rest. There were no regional perfusiondefects seen on the stress or rest images. Semi-quantitative analysis: The scan results demonstrated no evidence of ischemia and/or scar (summedstress score: 0). Reference %Myocardium Scan Results %Myocardium Magnitude of Abnormal Ischemic Ischemia 0-4% Normal 0% No ischemia 5-9% Mildly abnormal 1-4% Mild 10-19% Moderately abnormal 5-9% Moderate >=20% Severely abnormal >=10% Severe Gated SPECT: Demonstrated a post-stress LV ejection fraction of greater than 70% withnormal LV volumes. There were no regional wall motion abnormalities.Demonstrated normal regional wall thickening. The RV function appearednormal. Ancillary findings: None. In summary, the test results were: 1. Functional Capacity: 7 METS 2. Peak Heart Rate: 164 bpm (93% age-predicted maximal heart rate). 3. Symptomatic Response: Non-ischemic. 4. Peak Blood Pressure: 230/112 mm Hg. 5. Blood Pressure Response: Hypertensive throughout. 6. ECG Response: Negative test for myocardial ischemia based on absenceof ECG changes. 7. Stress-induced Arrhythmia: PAC's. 8. Myocardial Perfusion: Normal. 9. Global LV Function: Normal. Final impression: 1. The patient's test results are normal and suggest no evidence offlow-limiting CAD. 2. Normal global LV systolic function. Stress ECG tracings available from [facility]'s [employer]. Thank you for referring this patient to us. Sincerely yours, Juvenal Freeman M.D., Attending Physician us Terence Santos MD CV NM CARDIAC Final Re sult documented in this encounter Visit Diagnoses Diagnosis Chest pain, unspecified type Chest pain, unspecified type documented in this encounter Additional Health Concerns Assessment Noted Time PHQ-2 Depression Total Score: 0 06/26/20 17 11:32 AM EDT documented as of this encounter Care Teams Nursing Teacher Relationship Specialty Start Date End Date Kiana Oquendo MD [address] [address] PCP - General Family Medicine 05/13/17 12/26/17 Kiana Oquendo MD [address] [place] [address] PCP - General Family Medicine 12/27/17 06/17/23 Ronny Lan MD [address] [place] [address] [place] [address] PCP - General Internal Medicine 06/18/23 Kiana Oquendo MD [address] [address] Historical LMR Provider 11/06/18 2 Kendall Sprague MD [address] [place] [address] [email or web address] Historical LMR Provider 11/06/18 documented as of this encounter Additional Source Comments The information contained in this document represents components of the legal health record. It is not the complete legal health record.[facility]
--- OUTSIDE RECORDS SUMMARY | 2025-06-11 16:08 | XMS_ITS | Encounter Summary ---
Author Organization [facility] Address 399 [facility] [address] [place] [address] Phone Care Team Providers Care Program Support Specialist Name Role Phone Kiana Oquendo MD Primary Care Provider Kiana Oquendo MD Primary Care Provider Kiana Oquendo MD Unavailable [phone] Kendall Sprague MD Unavailable [phone] Ronny Lan MD Primary Care Provider [phone] Encounter Details Date Type Department Care Team (Late st Contact Info) Description 06/26/2017 Procedure Pass [facility] [address] [place] [address] Social History Tobacco Use Types Packs/Day Years [...] documented as of this encounter Care Teams Program Support Specialist Relationship Specialty Start Date End Date Kiana Oquendo MD 360 [facility] 9 [place] [address] PCP - General Family Medicine 05/13/17 12/26/17 Kiana Oquendo MD [address] [address] PCP - General Family Medicine 12/27/17 06/17/23 Ronny Lan MD [address] [place] [address] [place] [address] PCP - General Internal Medicine 06/18/23 Kiana Oquendo MD [address] [address] Historical LMR Provider 11/06/18 2 Kendall Sprague MD [address] [place] [address] [email or web address] Historical LMR Provider 11/06/18 documented as of this encounter Additional Source Comments The information contained in this document represents components of the legal health record. It is not the complete legal health record.[facility]
--- OUTSIDE RECORDS SUMMARY | 2025-06-11 16:08 | XMS_ITS | Encounter Summary ---
Author Organization [facility] Address 399 [facility] [address] [place] [address] Phone Care Team Providers Care Grip Assembler Name Role Phone Kiana Oquendo MD Primary Care Provider Kiana Oquendo MD Unavailable [phone] Kendall Sprague MD Unavailable [phone] Ronny Lan MD Primary Care Provider [phone] Encounter Details Date Type Department Care Team (Latest Contact Info) Description 05/21/2018 Transcribe Orders [facility] Vein Center [address] [place] [address] [address]us [address] [place] [address] [email or web address] Symptomatic varicose veins of left lower extremity [...] this encounter Results * Vein Center Ultrasound (05/21/2018 9:25 AM EDT) Narrative [facility] - 05/21/2018 9:25 AM EDT This study is for PACS [...] documented as of this encounter Care Teams Grip Assembler Relationship Specialty Start Date End Date Kiana Oquendo MD [address] [address] PCP - General Family Medicine 12/27/17 06/17/23 Ronny Lan MD [address] [place] [address] [place] [address] PCP - General Internal Medicine 06/18/23 Kiana Oquendo MD [address] [place] [address] Historical LMR Provider 11/06/18 2 Kendall Sprague MD [address] [place] [address] [email or web address] Historical LMR Provider 11/06/18 documented as of this encounter Additional Source Comments The information contained in this document represents components of the legal health record. It is not the complete legal health record.[facility]
--- OUTSIDE RECORDS SUMMARY | 2025-06-11 16:08 | XMS_ITS | Encounter Summary ---
Author Organization [facility] Address 399 [facility] [address] [place] [address] Phone Care Team Providers Care Biology Teacher Name Role Phone Kiana Oquendo MD Primary Care Provider Kiana Oquendo MD Primary Care Provider Kiana Oquendo MD Unavailable [phone] Kendall Sprague MD Unavailable [phone] Ronny Lan MD Primary Care Provider [phone] Encounter Details Date Type Department Care Team (Late st Contact Info) Description 06/26/2017 Procedure Pass [facility] [address] [place] [address] Social History Tobacco Use Types Packs/Day Years [...] documented as of this encounter Care Teams Biology Teacher Relationship Specialty Start Date End Date Kiana Oquendo MD 360 [facility] 9 [place] [address] PCP - General Family Medicine 05/13/17 12/26/17 Kiana Oquendo MD [address] [address] PCP - General Family Medicine 12/27/17 06/17/23 Ronny Lan MD [address] [place] [address] [place] [address] PCP - General Internal Medicine 06/18/23 Kiana Oquendo MD [address] [address] Historical LMR Provider 11/06/18 2 Kendall Sprague MD [address] [place] [address] [email or web address] Historical LMR Provider 11/06/18 documented as of this encounter Additional Source Comments The information contained in this document represents components of the legal health record. It is not the complete legal health record.[facility]
--- OUTSIDE RECORDS SUMMARY | 2025-06-11 16:08 | XMS_ITS | Clinical Summary ---
Author Organization [facility] Address 399 [facility] [address] [place] [address] Phone Care Team Providers Care Mid Level Clinician Name Role Phone Ronny Lan MD Primary Care Provider [phone] Allergies No known active allergies Medications VENTOLIN HFA 90 mcg/actuation inhaler INHALE 1 PUFF 4 TIMES A DAY NEEDED FOR SHORTNESS OF BREATH OR WHEEZING FOR 30 DAYS 3 Active nystatin cream Apply topically 2 (two) times a day. 30 g 6 3 Active ondansetron (ZOFRAN) 4 MG tablet Take 1 tablet (4 mg total) by mouth every 8 (eight) hours as needed for nausea. 30 tablet 3 Active oxyCODONE-aceta minophen (PERCOCET) 5-325 mg per tablet Take 1 tablet by mouth every 4 (four) hours as needed for pain (specific location in comments). Partial fill ok 30 tablet 3 Active docusate sodium (COLACE) 100 MG capsule Take 1 capsule (100 mg total) by mouth 2 (two) times a day. 30 capsule 1 3 Active Active Problems Problem Noted Date Diagnosed Date Intertrigo 08/14/2023 Diastasis recti 08/14/2023 Pannus, abdominal 08/14/2023 Dyspnea on exertion 06/26/2017 Essential hypertension 06/26/2017 Family history of premature CAD 06/26/2017 Family History Medical History Relation Comments Diabetes Father Hypertension Father Diabetes Mother Hypertension Mother Relation Status Comments Father Alive Mother Alive Social History Tobacco Use Types Packs/Day Years Used Date Smoking Tobacco: Never Smokeless Tobacco: Never Tobacco Cessation:Counseling Given: Not Answered Alcohol Use Standard Drinks/Week Comments No 0 [...] on file Sexual Orientation Not on file Last Filed Vital Signs Vital Sign Reading Time Taken Comments Blood Pressure 151/75 08/26/2023 12:29 PM EST Pulse 51 08/26/2023 11:15 AM EST Temperature 36.1 C (97 F) 08/26/2023 12:25 PM EST Respiratory Rate 18 08/26/2023 11:15 AM EST Oxygen Saturation 100% 08/26/2023 12:29 PM EST Inhaled Oxygen Concentration - - Weight 66.2 kg (146 lb) 08/26/2023 6:10 AM EST Height 154.9 cm (5' 1 ) 08/26/2023 6:10 AM EST Body Mass Index 27.59 08/26/2023 6:10 AM EST Plan of Treatment Health Maintenance Due Date Last Done Comments LIPID PANEL 1972 HEPATITIS C SCREENING 1990 HIV ONE-TIME SCREENING (18-65 YEARS) 1990 PAP SMEAR 1993 SCREENING FOR DIABETES 2007 MAMMOGRAM 2012 COLOGUARD 2017 COLONOSCOPY 2017 COLORECTAL CANCER SCREENING 2017 FIT TEST 2017 FOBT 2017 SIGMOIDOSCOPY 2017 VIRTUAL COLONOSCOPY 2017 DEPRESSION SCREENING 06/26/2018 06/26/2017 PNEUMOCOCCAL VACCINES (50+ years) (1 of 1 - PCV) 2022 ZOSTER VACCINES (1 of 2) 2022 BLOOD PRESSURE 02/12/2024 08/14/2023 INFLUENZA VACCINE (#1) 2025 , 08/16/2022, 08/11/2021, Additional history exists COVID-19 VACCINE (2024- season) 2025 09/13/2021, 08/23/2021 Adult Td,Tdap Booster 12/09/2029 12/10/2019 SMOKING STATUS SCREENING (Once After 26 Yrs) Completed 08/26/2023 HEPATITIS A VACCINES Aged Out No long er eligible based on patient's age to complete this topic HIB VACCINES Aged Out No longer eligi ble based on patient's age to complete this topic MENINGOCOCCAL VACCINES (ACWY) Aged Out No longer eligible based on patient's age to complete this topic MENINGOCOCCAL VACCINES (B) Aged Out N o longer eligible based on patient's age to complete this topic Medical Devices Not on file Insurance [facility] NON NSPG PCP [place] [employer] [facility] NON NSPG PCP [place] [employer] NON NSPG PCP SILVER [employer]ARITY CONNECTORCARE [employer] NON NSPG PCP S[place]VER [employer] CONNECTORCARE [employer] NON NSPG PCP [place] [facility]CTORCARE [facility] [place] [facility] Advance Directives For more information, please contact: [phone] (9AM - 5PM [place]/[facility], Saturday-Saturday) * Full Code (Latest Code Status on File) Date Activated Date Inactivated Comments 08/26/2023 7:11 AM Question Answer Comments Code Status Confirmed With: Patient Care Teams Mid Level Clinician Relationship Specialty Start Date End Date Ronny Lan MD [address] [place] [address] [place] [address] PCP - General Internal Medicine 06/18/23 Additional Source Comments The information contained in this document represents components of the legal health record. It is not the complete legal health record.[facility]
--- OUTSIDE RECORDS SUMMARY | 2025-06-11 16:08 | XMS_ITS | Encounter Summary ---
Author Organization [facility] Address 399 [facility] [address] [place] [address] Phone Care Team Providers Care Environmental Property Assessor Name Role Phone Kiana Oquendo MD Primary Care Provider Kiana Oquendo MD Unavailable [phone] Kendall Sprague MD Unavailable [phone] Ronny Lan MD Primary Care Provider [phone] Encounter Details Date Type Department Care Team (Latest Contact Info) Description 04/03/2018 Transcribe Orders [facility] Center [place] [address] [address] [place] [address] Xuan Grimes MD [address] [place] [address] [email or web address] Varicose veins of left lower extremity with complications (Primary Dx) Social [...] this encounter Results * Vein Center Ultrasound (04/03/2018 9:00 AM EDT) Narrative [facility] - 04/03/2018 9:00 AM EDT This study is for PACS storage only and not for interpretation. us Xuan Grimes MD IMG POINT OF CARE EXAMS Fin al Result [facility] documented in this encounter Visit Diagnoses Diagnosis Varicose veins of left lower extremity with complications- Primary documented in this encounter Additional Health Concerns Assessment Noted Time PHQ-2 Depression Total Score: 0 06/26/20 17 11:32 AM EDT documented as of this encounter Care Teams Environmental Property Assessor Relationship Specialty Start Date End Date Kiana Oquendo MD [address] [address] PCP - General Family Medicine 12/27/17 06/17/23 Ronny Lan MD [address] [place] [address] [place] [address] PCP - General Internal Medicine 06/18/23 Kiana Oquendo MD [address] [place] [address] Historical LMR Provider 11/06/18 2 Kendall Sprague MD [address] [place] [address] [email or web address] Historical LMR Provider 11/06/18 documented as of this encounter Additional Source Comments The information contained in this document represents components of the legal health record. It is not the complete legal health record.[facility]
--- OUTSIDE RECORDS SUMMARY | 2025-06-11 16:08 | XMS_ITS | Patient Health Record ---
Author Organization [facility] Address [address] [address] Care Team Providers Care Food Cart Attendant Name Role Phone Kiana Hillman MD Primary Care Provider Unavailable Zacarias Mayorga Unavailable [phone] Reason For Referral No Information Medications Medication SIG (Take, Route, Frequency, Duration) Notes Start Date End Date Status metFORMIN HCl 500 MG 1 tablet with meals Orally Twice a day Active Vitamin D (Ergocalciferol) 15466 UNIT 1 capsule Orally Active traZODone HCl [...] due to varicose veins of left leg ([id number]) Varicose veins of left lower extremities with pain (I83.812) Active confirmed Plan Of Treatment No Information Insurance Providers Payer Name Payer Address Payer Phone Subscriber Number Group Number Insured Name Patient Relationship to Insured Coverage Start Date Coverage End Date Medicaid [address] [place] [address] [phone] [id number] Linnette Dunne Self - patient is the insured Medical (General) History Medical History History ICD Code 1. Varicose Veins 2. Lupus; lab diagnosed 3. Claudication 4. Hypertension 5. Asthma 6. Gastro_Esophageal Reflux Disease 7. Non Smoker
== END 2025-06-11 16:33 | disposition home or self-care (01) ==
LOC: HO.HMCH 16:06
PROVIDERS: PCP Internal Medicine; Visit Provider Internal Medicine
DX: R51.9 Headache, unspecified (principal); K29.30 Chronic superficial gastritis without bleeding; Z68.30 Body mass index [BMI] 30.0-30.9, adult; E66.9 Obesity, unspecified; J45.20 Mild intermittent asthma, uncomplicated; D64.9 Anemia, unspecified; E55.9 Vitamin D deficiency, unspecified; K59.00 Constipation, unspecified; M17.11 Unilateral primary osteoarthritis, right knee; F32.89 Other specified depressive episodes

== ENCOUNTER → 2025-06-11 16:05 | Outpatient (BNVA) | payer OTHER, SELFPAY | PROVIDERS: PCP Internal Medicine; Visit Provider Internal Medicine | DX: K29.30 Chronic superficial gastritis without bleeding (principal); R51.9 Headache, unspecified; J45.20 Mild intermittent asthma, uncomplicated; D64.9 Anemia, unspecified; E55.9 Vitamin D deficiency, unspecified; K59.00 Constipation, unspecified; M17.11 Unilateral primary osteoarthritis, right knee; F32.89 Other specified depressive episodes; E66.9 Obesity, unspecified; Z68.30 Body mass index [BMI] 30.0-30.9, adult | CPT/HCPCS: 96127; 99212 ==

== ENCOUNTER 2025-06-25 10:34 | Emergency (ER) | payer OTHER, SELFPAY ==
[2025-06-25] VITALS (9 sets, daily range): BP systolic 124–156; BP diastolic 78–97; PULSE 51–70; RESP 15–24; TEMP 36.4–36.9; O2SAT 97–100; BMI 25.5
--- NOTE | ~2025-06-25 | CT_ITS ---
EXAMINATION: CT HEAD WITHOUT IV CONTRAST HISTORY: weakness LE. TECHNIQUE: Unenhanced helical CT of the head was performed per standard departmental protocol. Coronal and sagittal reformats of the head were also evaluated. One or more of the following techniques was used for dose reduction: Automated exposure control, adjustment of the mA and/or kV according to patient size, use of iterative reconstruction technique. DLP: 576 mGy-cm COMPARISON: There are no prior studies available for comparison. FINDINGS: BRAIN: The brain parenchyma is unremarkable. There is normal stevenson/white differentiation. The ventricular system is normal in size and configuration. There is no mass effect or midline shift. No intra- or extra-axial fluid collections are identified. SINUSES: The visualized paranasal sinuses are clear. The mastoid air cells and middle ear cavities are well pneumatized. ORBITS: The visualized orbits are unremarkable. BONES/SOFT TISSUES: The extracranial soft tissues are unremarkable. The calvarium is intact. No suspicious lytic or sclerotic lesions. CT/CT head/brain wo IV con IMPRESSION: Unremarkable unenhanced head CT. Electronically signed by: Merritt Adams MD 06/25/2025 12:15 PM EDT
--- NOTE | 2025-06-25 10:54 | PC.NURSE ---
pt biba from work c/o increased sudden onset weakness/dizziness/change in vision while ambulating. pt reports having trouble w/ managing blood sugar - no dx of DM. currently getting worked up. upon ED arrival - pt a&ox4. vss and up to date. nsr on the pipe jeeper. pt answering questions/following commands appropriately. 20gIV placed in the right AC - labs obtained/sent to lab. POC obtained displaying 85mg/dL. pt on RA w/o difficulty. no sob/wob noted. respirations even/unlabored. pending head CT to be completed at this time. plan of care ongoing. call hoang placed within reach.
[2025-06-25 10:57] LABS: MANUAL DIFF FLAG NO
--- NOTE | 2025-06-25 10:58 | ED.GENADULT ---
HPI - General Adult General Chief complaint: Weakness Stated complaint: general weaknes/dizzy/sugar issues at home Time Seen by Provider: 06/25/25 10:37 Source: patient Mode of arrival: ambulatory Limitations: no limitations History of Present Illness ED Provider: ASHUTOSH Garnett HPI narrative: This is a 54-year-old female history of hyperglycemia/diabetes, BPV, dizziness, depression, exocrine pancreatic insufficiency, iron deficiency anemia, GERD presents to the emergency department with multiple complaints she tells me she feels like she is having a panic attack. She is anxious and unclear why. She tells me when she felt like she was panicking she felt like her whole body was weak and she could not move. Denies depression, suicidal or homicidal ideation. Unable to identify a trigger. As I am speaking to her she appears to be coming down. She also tells me she is feeling dizzy, she tells me fluctuates between room spinning and feeling lightheaded. She has a history of this, usually goes away on its own. He tells me the main reason she came in today was because of the panic attack. She denies chest pain, shortness of breath, weakness, nausea, vomiting, abdominal pain, changes in urinary or bowel habits. Related Data Home Medications ?Medication ?Instructions ?Recorded ?Confirmed acetaminophen 325 mg tablet 650 mg PO Q6H PRN Pain 03/03/22 06/11/25 ferrous sulfate 325 mg (65 mg 325 mg PO DAILY 09/07/22 06/11/25 iron) tablet,delayed release buspirone 5 mg tablet mg PO 06/11/25 06/11/25 clonazepam 0.5 mg tablet 0.5 mg PO DAILY PRN panic attack 06/11/25 06/11/25 escitalopram oxalate 10 mg tablet 10 mg PO QAM 06/11/25 06/11/25 Previous Rx's ?Medication ?Instructions ?Recorded ibuprofen 600 mg tablet 600 mg PO Q8H PRN pain #20 tabs 11/29/22 albuterol sulfate 90 mcg/actuation 1 inh inhalation QID PRN shortness 12/14/22 aerosol inhaler (ProAir HFA) of breath or wheezing 30 days #8.5 grams cbeqln-zjyjijvc-pmhcfaw 1 cap PO QID #120 caps 12/02/23 24,000-76,000-120,000 unit capsule,delayed rel (Creon) sennosides 8.6 mg tablet (Natural 17.2 mg (2 x 8.6 mg) PO BEDTIME 09/01/24 Senna Laxative) constipation #60 tabs fluticasone propionate 50 1 spray intranasal BID #16 grams 10/28/24 mcg/actuation nasal spray,suspension cholecalciferol (vitamin D3) 50 50 mcg PO DAILY 90 days #90 caps 01/29/ mcg (2,000 unit) capsule cholecalciferol (vitamin D3) 50 50 mcg PO DAILY #90 caps 04/20/25 mcg (2,000 unit) capsule pantoprazole 40 mg tablet,delayed 40 mg PO QAM #90 tabs 04/26/25 release Allergies Allergy/AdvReac Type Severity Reaction Status Date / Time No Known Allergies (No Known Allergy Verified 06/25/25 10:48 Allergies*) Review of Systems Review of Systems: Yes all other systems are reviewed and are negative PMFSH Past Medical History Attestation statement: The following information was validated with the patient. Source: old records reviewed and nursing notes reviewed Medical History Vitamin D deficiency Obesity (BMI 30-39.9) Constipation GERD without esophagitis Gastritis Asthma Overweight (BMI 25.0-29.9) ZHOU positive Varicose veins of bilateral lower extremities with pain Surgical History History of loop electrical excision procedure (LEEP) History of esophagogastroduodenoscopy (EGD) Hx of colonoscopy Hx of laparoscopy Status post laser ablation of incompetent vein H/O tubal ligation Hx of cholecystectomy (~2014) H/O gastric bypass (~2017) Family History Family History Father HTN (hypertension) Diabetes mellitus Mother HTN (hypertension) Diabetes mellitus Asthma Brother No problems noted. Brother No problems noted. Brother No problems noted. Brother No problems noted. Sister No problems noted. Daughter No problems noted. Son No problems noted. Son No problems noted. Paternal Aunt Breast cancer Family/Other Colon cancer Maternal Aunt Ovarian cancer Social History Social History Household Members: Spouse Housing: House Are you a primary neonatal intensive care unit nurse to a significant other at home: No Do you presently have visiting nurse or other home services: No Alcohol intake: current Alcohol intake frequency: holidays/special occasions only Alcohol type: wine Patient Tobacco Use Status: Never used Tobacco Smoked in Last 30 Days: No e-Cigarette/Vaping Use: Never Used Second Hand Smoke Exposure: No Use of substances other than those prescribed or required for medical reasons: No Advance Directives: No Advance Directives Information Provided: No Do you have a plan to hurt others: No Plan Patient : No service: No Current occupational status: employed Cognitive needs: No Hearing needs: No Vision needs: Yes (Glasses) Physical Exam ED Exam Exam: Appearance: Alert.? Oriented X3.? No acute distress.? Head: Normocephalic, atraumatic, no step-offs or deformities Eyes: Pupils equal, round and reactive to light.? ENT: Pharynx normal.? Neck: Normal inspection.? Neck supple.? CVS: Normal heart rate and rhythm.? Pulses normal.? Respiratory: No respiratory distress.? Breath sounds normal.? Abdomen: Soft and nontender.? Skin: Skin warm and dry.? Normal skin color.? Normal skin turgor.? Extremities: No lower extremity edema.? No calf ttp. 5/5 strength to bilateral upper and lower extremities Back: No midline tenderness, no C-spine tenderness, full range of motion, no CVA tenderness bilaterally Neuro: Oriented X 3.? No motor deficit.? No sensory deficit. CN 2-12 intact . Normal gpkijt-qb-hdrt, yeoz-ox-bptt, ambulating with steady gait normal coordination. Vital Signs: Vital Signs - 24 hr 06/25/25 10:40 06/25/25 11:11 06/25/25 11:22 Temperature 98.1 F Pulse Rate 54 51 60 Respiratory Rate 15 Blood Pressure 155/88 H 146/78 H 150/88 H Pulse Oximetry 98 Oxygen Delivery Method Room Air 06/25/25 11:26 06/25/25 12:09 06/25/25 14:10 Temperature 98.4 F 97.5 F Pulse Rate 61 56 62 Respiratory Rate 17 18 Blood Pressure 156/97 H 143/92 H 150/84 H Pulse Oximetry 97 100 Oxygen Delivery Method Room Air Room Air 09/19/25 16:45 Temperature Pulse Rate 70 Respiratory Rate 24 H Blood Pressure 145/83 H Pulse Oximetry 98 Oxygen Delivery Method Room Air BMI result Body Mass Index 25.5 vss NIH Stroke Scale Internal: Initial- Upon Arrival Level of Consciousness: Alert Level of Consciousness Questions: Answers both questions correctly Level of Consciousness Commands: Performs both tasks correctly Best Gaze: Normal Visual: No visual loss Facial Palsy: Normal Motor Arm (Right): No drift Motor Arm (Left): No drift Motor Leg (Right): No drift Motor Leg (Left): No drift Limb Ataxia: Absent Sensory: Normal Best Language: No aphasia Dysarthia: Normal Extinction and Inattention: No abnormality Score: 0 Course Reevaluation(s) Reevaluation #1: CBC unremarkable. Chemistry no acute findings needing intervention. Point of care 85. Time: 11:00 Reevaluation #2: UA without infection. Urine toxicology negative. Time: 12:13 Reevaluation #3: Head CT unremarkable. Bedside ultrasound of bilateral eyes done with Dr. Taylor at the bedside. Optic nerve less than 0.6. Patient reports she is feeling better. Has been able to ambulate. Neurological assessment nonfocal. No longer feeling like she is having dizziness or panic attacks. No headaches, vision changes, weakness. She feels well at this time. Educated patient on diagnosis and treatment plan, answered all question, patient verbalizes understanding. At this time patient will be discharged home, advised to return with new or worsening symptoms. Educated on worrisome signs and symptoms and when to return. At this time I feel comfortable discharge home. Time: 16:03 Additional Reevaluation(s): 1801 Troponin negative EKG nonischemic. Patient ambulating without difficulty. Educated patient on diagnosis and treatment plan, answered all question, patient verbalizes understanding. At this time patient will be discharged home, advised to return with new or worsening symptoms. Educated on worrisome signs and symptoms and when to return. At this time I feel comfortable discharge home. Medications Administered Discontinued Medications Generic Name Dose Route Start Last Admin Trade Name Manoj PRN Reason Stop Dose Admin Lorazepam 1 mg 06/25/25 10:43 06/25/25 10:56 Lorazepam 1 Mg Tablet PO 06/25/25 10:44 1 mg ONCE ONE Administration Lorazepam 1 mg 06/25/25 13:52 06/25/25 14:07 Lorazepam 1 Mg Tablet PO 06/25/25 13:53 1 mg ONCE ONE Administration Procedures Ultrasound ED POC Ultrasound: Ultrasound of bilateral eyes done with Dr. Taylor at the bedside. No abnormalities no retinal detachment, no vitreous hemorrhage, normal optic nerve size. Medical Decision Making Medical Decision Making [facility] Narrative: 54-year-old female presents with what she describes as a panic attack and complaints of dizziness. History of dizziness in the past feels like her typical. Not associated headache, vision changes, dizziness or weakness at this time NIH stroke scale 0. Physical exam benign History and physical exam concerning for panic attack her weakness was likely secondary to panic. No focal neurological deficits. Unlikely intracranial hemorrhage, stroke, posterior stroke. No trauma to head. BPPV on the differential as she has a history of this in the past. Will rule out metabolic derangements, cardiac abnormalities although unlikely. Plan labs, imaging Differential Diagnosis Differential Diagnoses: The differential diagnosis associated with the presentation includes (History and physical exam concerning for panic attack her weakness was likely secondary to panic. No focal neurological deficits. Unlikely intracranial hemorrhage, stroke, posterior stroke. No trauma to head. BPPV on the differential as she has a history of this in the past. Will rule out metab) See above Admission/Observation Consideration of admission/observation: Escalation of care including admission/observation considered (Possible will monitor) 1608-Unlikely need for admission patient feeling better. Consult Healthcare Provider Consulted with my attending on this case I did a bedside ultrasound with me. Unremarkable. Lab Data 06/25/25 10:54 06/25/25 10:54 Labs: Lab Results 06/25/25 06/25/25 06/25/25 Range/Units 10:54 11:09 12:13 WBC 8.1 (4.8-10.8) X10*3/uL RBC 4.64 (4.20-5.50) X10*6/uL Hgb 13.0 (12.0-16.0) g/dl Hct 38.8 (37.0-47.0) % MCV 83.6 (80.0-98.0) fL MCH 28.0 (27.0-33.0) pg MCHC 33.5 (31.0-35.0) g/dl RDW 15.2 (11.0-16.0) % Plt Count 233 (160-400) X10*3/uL MPV 10.2 (9.4-12.3) fL Immature Gran % (Auto) 0.4 (0.0-0.4) % Neut % (Auto) 61.8 (45-73) % Lymph % (Auto) 28.2 (20-40) % Hall % (Auto) 8.7 (2-11) % Eos % (Auto) 0.5 (0-4) % Baso % (Auto) 0.4 (0-2) % Lymph # (Auto) 2.3 (1.2-4.9) X10*3/uL Hall # (Auto) 0.7 (0.1-1.2) X10*3/uL Eos # (Auto) 0.0 (0.0-0.4) X10*3/uL Baso # (Auto) 0.0 (0.0-0.2) X10*3/uL Abs Immat Gran (auto) 0.03 (0.00-0.03) X10*3/uL Absolute Neuts (auto) 5.0 (2.0-8.3) x10*3/uL Absolute Nucleated RBC 0.000 (0.0-0.012) X10*3/uL Nucleated RBC % (auto) 0.0 (0.0-0.2) /100WBC Sodium 141 (135-145) mmol/L Potassium 3.8 (3.3-5.1) mmol/L Chloride 109 H (96-108) mmol/L Carbon Dioxide 29 (22-29) mmol/L Anion Gap 7 L (12-20) BUN 9 (9-16) mg/dL Creatinine 0.66 (0.5-1.4) mg/dL Estim Creat Clear Calc 100.6 Estimated GFR > 60 POC Glucose 85 (60-115) mg/dL Random Glucose 85 (60-115) mg/dL Calcium 8.7 (8.4-10.2) mg/dL Magnesium 2.2 (1.6-2.6) mg/dL Total Bilirubin 0.3 (0.0-1.0) mg/dL AST 31 (5-31) U/L ALT 22 (0-31) U/L Alkaline Phosphatase 80 (39-117) U/L Troponin I High Sens < 2.7 (<3.5-17.0) ng/L Total Protein 6.6 (6.5-8.0) g/dL Albumin 4.0 (3.5-5.0) g/dL Urine Color Yellow Urine Appearance Clear Urine pH 7.0 (5.0-9.0) Ur Specific [place] 1.010 (1.005-1.025) Urine Protein Negative (Neg-Trace) mg/dL Urine Glucose (UA) Negative (Negative) mg/dL Urine Ketones Negative (Negative) mg/dL Urine Blood Small (1+) H (Negative) Urine Nitrite Negative (Negative) Ur Leukocyte Esterase Negative (Negative) Urine RBC 0-2 (0-2) /HPF Urine WBC 0-5 (0-5) /HPF Ur Squamous Epith Cells 0-2 (0-2) /HPF Urine Bacteria Trace (None Seen) Hyaline Casts 0-2 (0-2) /LPF Urine Opiates Screen Not Detected (Not Detect) Ur Buprenorphine Scrn Not Detected (Not Detect) ng/mL Ur Oxycodone Screen Not Detected (Not Detect) ng/mL Urine Methadone Screen Not Detected (Not Detect) ng/mL Urine Fentanyl Screen Not Detected (Not Detect) Ur Barbiturates Screen Not Detected (Not Detect) Ur Phencyclidine Scrn Not Detected (Not Detect) Ur Amphetamines Screen Not Detected (Not Detect) U Benzodiazepines Scrn Not Detected (Not Detect) Urine Cocaine Screen Not Detected (Not Detect) U Marijuana (THC) Screen Not Detected (Not Detect) Ethyl Alcohol < 10 mg/dL 06/25/25 Range/Units 14:10 WBC (4.8-10.8) X10*3/uL RBC (4.20-5.50) X10*6/uL Hgb (12.0-16.0) g/dl Hct (37.0-47.0) % MCV (80.0-98.0) fL MCH (27.0-33.0) pg MCHC (31.0-35.0) g/dl RDW (11.0-16.0) % Plt Count (160-400) X10*3/uL MPV (9.4-12.3) fL Immature Gran % (Auto) (0.0-0.4) % Neut % (Auto) (45-73) % Lymph % (Auto) (20-40) % Hall % (Auto) (2-11) % Eos % (Auto) (0-4) % Baso % (Auto) (0-2) % Lymph # (Auto) (1.2-4.9) X10*3/uL Hall # (Auto) (0.1-1.2) X10*3/uL Eos # (Auto) (0.0-0.4) X10*3/uL Baso # (Auto) (0.0-0.2) X10*3/uL Abs Immat Gran (auto) (0.00-0.03) X10*3/uL Absolute Neuts (auto) (2.0-8.3) x10*3/uL Absolute Nucleated RBC (0.0-0.012) X10*3/uL Nucleated RBC % (auto) (0.0-0.2) /100WBC Sodium (135-145) mmol/L Potassium (3.3-5.1) mmol/L Chloride (96-108) mmol/L Carbon Dioxide (22-29) mmol/L Anion Gap (12-20) BUN (9-16) mg/dL Creatinine (0.5-1.4) mg/dL Estim Creat Clear Calc Estimated GFR POC Glucose 85 (60-115) mg/dL Random Glucose (60-115) mg/dL Calcium (8.4-10.2) mg/dL Magnesium (1.6-2.6) mg/dL Total Bilirubin (0.0-1.0) mg/dL AST (5-31) U/L ALT (0-31) U/L Alkaline Phosphatase (39-117) U/L Troponin I High Sens (<3.5-17.0) ng/L Total Protein (6.5-8.0) g/dL Albumin (3.5-5.0) g/dL Urine Color Urine Appearance Urine pH (5.0-9.0) Ur Specific [place] (1.005-1.025) Urine Protein (Neg-Trace) mg/dL Urine Glucose (UA) (Negative) mg/dL Urine Ketones (Negative) mg/dL Urine Blood (Negative) Urine Nitrite (Negative) Ur Leukocyte Esterase (Negative) Urine RBC (0-2) /HPF Urine WBC (0-5) /HPF Ur Squamous Epith Cells (0-2) /HPF Urine Bacteria (None Seen) Hyaline Casts (0-2) /LPF Urine Opiates Screen (Not Detect) Ur Buprenorphine Scrn (Not Detect) ng/mL Ur Oxycodone Screen (Not Detect) ng/mL Urine Methadone Screen (Not Detect) ng/mL Urine Fentanyl Screen (Not Detect) Ur Barbiturates Screen (Not Detect) Ur Phencyclidine Scrn (Not Detect) Ur Amphetamines Screen (Not Detect) U Benzodiazepines Scrn (Not Detect) Urine Cocaine Screen (Not Detect) U Marijuana (THC) Screen (Not Detect) Ethyl Alcohol mg/dL Independent Interpretation I performed an independent interpretation of an: EKG and CT Scan (CT/CT head/brain wo IV con IMPRESSION: Unremarkable unenhanced head CT.) Radiology Impression Discussion of test interpretation with radiology: I have reviewed the radiologist's reading. Independent Historian Clinical information obtained from an independent historian. History obtained from or confirmed by: EMS External Record Review External record reviewed: Inpatient record, Office record, Outpatient record, Prior outpatient labs, Prior outpatient radiology, Primary care record, Outside ED record and Other Prescription Management I considered prescription management with: Other (Anxiolytic, Ativan.) Chronic Conditions Patient?s care impacted by: Diabetes and Other (See HPI) Critical Care Time Critical Care Time Critical Care Time: Yes Total Critical Care Time: 35 Attestation: I attest to this time spent taking care of the patient, obtaining history, physical, reviewing labs, imaging, treatment of patients condition +/- specialist/hospitalist consult +/- procedure Discharge Plan Discharge Clinical Impression: Anxiety, Panic attack, Dizziness Patient Disposition: Home, Self-Care Instructions: Lightheadedness (ED), Dizziness (ED), Anxiety (ED) Additional Instructions: Take your medications as prescribed. If you were prescribed antibiotics today, it is important that you take your medication to their entirety, do not skip any doses, do not finish them early. Follow-up with your primary care provider this week. Return to the emergency department with new or worsening symptoms. Such as fevers, chills, chest pain, shortness of breath, nausea, vomiting, dizziness, headache, vision changes, lethargy In case of emergency call 911 Your workup was reassuring. Your head CT showed no acute findings. Ultrasound of your eyes looked okay. Prescriptions: No Action pantoprazole 40 mg tablet,delayed release (DR/EC) 40 mg PO QAM Qty: 90 1RF acetaminophen 325 mg Tablet 650 mg PO Q6H PRN (Reason: Pain) ibuprofen 600 mg tablet 600 mg PO Q8H PRN (Reason: pain) Qty: 20 0RF ferrous sulfate 325 mg (65 mg iron) tablet,delayed release (DR/EC) 325 mg PO DAILY albuterol sulfate [ProAir HFA] 90 mcg/actuation HFA aerosol inhaler 1 inh inhalation QID PRN (Reason: shortness of breath or wheezing) 30 Days Qty: 8.5 5RF Creon 24,000-76,000 -120,000 unit capsule,delayed release(DR/EC) 1 cap PO QID Qty: 120 5RF Rx Instructions: administer with meals and/or snacks cholecalciferol (vitamin D3) 50 mcg (2,000 unit) capsule 50 mcg PO DAILY 90 Days Qty: 90 3RF fluticasone propionate 50 mcg/actuation spray,suspension 1 spray intranasal BID Qty: 16 2RF Rx Instructions: administer into each nostril cholecalciferol (vitamin D3) 50 mcg (2,000 unit) capsule 50 mcg PO DAILY Qty: 90 3RF sennosides [Natural Senna Laxative] 8.6 mg tablet 17.2 mg PO BEDTIME Qty: 60 3RF buspirone 5 mg tablet PO clonazepam 0.5 mg tablet 0.5 mg PO DAILY PRN (Reason: panic attack) escitalopram oxalate 10 mg tablet 10 mg PO QAM Referrals: Ronny Lan MD [Primary Care Provider, Internal Medicine] - 1 week Stand Alone Forms: Work/School Release Print Language: Chinese
[2025-06-25 11:00] LABS: Hematocrit 38.8 % (37.0-47.0); Hemoglobin 13.0 g/dl (12.0-16.0); Imm Gran Abs Auto 0.03 X10*3/uL (0.00-0.03); Imm Gran Pct Auto 0.4 % (0.0-0.4); Lymphocytes Absolute Auto 2.3 X10*3/uL (1.2-4.9); Mean Corpuscular HGB Conc 33.5 g/dl (31.0-35.0); Mean Corpuscular Hemoglobin 28.0 pg (27.0-33.0); Mean Corpuscular Volume 83.6 fL (80.0-98.0); NRBC Abs Auto 0.000 X10*3/uL (0.0-0.012); NRBC Pct Auto 0.0 /100WBC (0.0-0.2); Platelet Count 233 X10*3/uL (160-400); Red Blood Count 4.64 X10*6/uL (4.20-5.50); White Blood Count 8.1 X10*3/uL (4.8-10.8)
[2025-06-25 11:15] LABS: Alanine Aminotransferase 22 U/L (0-31); Albumin Level 4.0 g/dL (3.5-5.0); Alkaline Phosphatase 80 U/L (39-117); Anion Gap 7 (12-20); Aspartate Amino Transferase 31 U/L (5-31); Blood Urea Nitrogen 9 mg/dL (9-16); Calcium 8.7 mg/dL (8.4-10.2); Carbon Dioxide 29 mmol/L (22-29); Chloride 109 mmol/L (96-108); Creatinine Clr Calc Pharmacy 100.6; Estimated Glomerular Filt Rate > 60; Magnesium 2.2 mg/dL (1.6-2.6); Potassium 3.8 mmol/L (3.3-5.1); Sodium 141 mmol/L (135-145); Total Protein 6.6 g/dL (6.5-8.0)
[2025-06-25 11:25] LABS: Glucose, Whole Blood 85 mg/dL (60-115)
--- NOTE | 2025-06-25 11:30 | PC.NURSE ---
pt returned from CT at this time. orthostatic VS performed - pt denies any dizziness/lightheadedness w/ exertion. pt tolerated intervention well w/o complications.
--- OUTSIDE RECORDS SUMMARY | 2025-06-25 11:37 | XMS_ITS | Clinical Summary ---
Author Organization [facility] Address [address] [facility] [address] [place] [address] Phone Care Team Providers Care Pile Trimmer Name Role Phone Ronny Lan MD Primary Care Provider [phone] Allergies No known active allergies Medications VENTOLIN [...] you interested in more education? Not on prnaeeth e 02/01/2023 Are you concerned about learning? [...] topic Medical Devices Not on file Insurance [facility] NON NSPG PCP [facility] [employer] CONNECTORCARE [facility] NON NSPG PCP [employer] [employer] CONNE[employer]CARE [employer] NON NSPG PCP SILVER CLARITY CONNECTORCARE [employer] NON NSPG PCP SILVER CLARITY CONNECTORCARE [employer] NON NSPG PCP [facility] Advance Directives For more information, please contact: [phone] (9AM - 5PM [place]/[facility], Saturday-Saturday) * Full Code (Latest Code Status on File) Date Activated Date Inactivated Comments 08/26/2023 7:11 AM Question Answer Comments Code Status Confirmed With: Patient Care Teams Pile Trimmer Relationship Specialty Start Date End Date Ronny Lan MD [address] [place] [address] [place] [address] PCP - General Internal Medicine 06/18/23 Additional Source Comments The information contained in this document represents components of the legal health record. It is not the complete legal health record.[facility]
--- OUTSIDE RECORDS SUMMARY | 2025-06-25 11:37 | XMS_ITS | Encounter Summary ---
Author Organization [facility] Address [address] [facility] [address] [place] [address] Phone Care Team Providers Care Facialist Name Role Phone Kiana Oquendo MD Primary Care Provider Kiana Oquendo MD Unavailable [phone] Kendall Sprague MD Unavailable [phone] Ronny Lan MD Primary Care Provider [phone] Encounter Details Date Type Department Care Team (Latest Contact Info) Description 05/21/2018 Transcribe Orders [facility] [address] [place] [address] Justus Mitchell [address] [place] [id number] [email or web address] Symptomatic varicose veins of left [...] Center Ultrasound (05/21/2018 9:25 AM EDT) Narrative [facility] - 05/21/2018 9:25 AM EDT This study [...] documented as of this encounter Care Teams Facialist Relationship Specialty Start Date End Date Kiana Oquendo MD [address] [address] PCP - General Family Medicine 12/27/17 06/17/23 Ronny Lan MD [address] [place] [address] [place] [address] PCP - General Internal Medicine 06/18/23 Kiana Oquendo MD [address] [place] [id number] Historical LMR Provider 11/06/18 2 Kendall Sprague MD [address] [place] [address] [email or web address] Historical LMR Provider 11/06/18 documented as of this encounter Additional Source Comments The information contained in this document represents components of the legal health record. It is not the complete legal health record.[facility]
--- OUTSIDE RECORDS SUMMARY | 2025-06-25 11:37 | XMS_ITS | Encounter Summary ---
Author Organization [facility] Address [address] [facility] [address] [place] [address] Phone Care Team Providers Care Radio Message Router Name Role Phone Kiana Oquendo MD Primary Care Provider Kiana Oquendo MD Unavailable [phone] Kendall Sprague MD Unavailable [phone] Ronny Lan MD Primary Care Provider + [phone] Encounter Details Date Type Department Care Team (Latest Contact Info) Description 05/08/2018 Transcribe Orders [facility] Vein Center [address] [place] [address] Justus Mitchell [address] [place] [phone] [email or web address] Symptomatic varicose veins of left lower [...] Center Ultrasound (05/08/2018 7:55 AM EDT) Narrative [facility] - 05/08/2018 7:55 AM EDT This study [...] documented as of this encounter Care Teams Radio Message Router Relationship Specialty Start Date End Date Kiana Oquendo MD [address] [address] PCP - General Family Medicine 12/27/17 06/17/23 Ronny Lan MD [address] [place] [address] [place] [address] PCP - General Internal Medicine 06/18/23 Kiana Oquendo MD [address] [place] [id number] Historical LMR Provider 11/06/18 2 Kendall Sprague MD [address] [place] [address] [email or web address] Historical LMR Provider 11/06/18 documented as of this encounter Additional Source Comments The information contained in this document represents components of the legal health record. It is not the complete legal health record.[facility]
--- OUTSIDE RECORDS SUMMARY | 2025-06-25 11:37 | XMS_ITS | Encounter Summary ---
Author Organization [facility] Address [address] [facility] [address] [place] [address] Phone Care Team Providers Care Rail Track Layer Name Role Phone Kiana Oquendo MD Primary Care Provider Kiana Oquendo MD Unavailable [phone] Kendall Sprague MD Unavailable [phone] Ronny Lan MD Primary Care Provider + [phone] Encounter Details Date Type Department Care Team (Latest Contact Info) Description 04/17/2018 Transcribe Orders [facility] Vein Center [place] [address] [address] 2nd [place] [address] Xuan Grimes MD [address] [place] [address] [email or web address] Varicose veins of right lower [...] Center Ultrasound (04/17/2018 7:56 AM EDT) Narrative [facility] - 04/17/2018 7:56 AM EDT This study [...] documented as of this encounter Care Teams Rail Track Layer Relationship Specialty Start Date End Date Kiana Oquendo MD [address] [address] PCP - General Family Medicine 12/27/17 06/17/23 Ronny Lan MD [address] [place] [address] [place] [address] PCP - General Internal Medicine 06/18/23 Kiana Oquendo MD [address] [address] Historical LMR Provider 11/06/18 2 Kendall Sprague MD 500 [place] [address] [email or web address] Historical LMR Provider 11/06/18 documented as of this encounter Additional Source Comments The information contained in this document represents components of the legal health record. It is not the complete legal health record.[facility]
--- OUTSIDE RECORDS SUMMARY | 2025-06-25 11:37 | XMS_ITS | Encounter Summary ---
Author Organization [facility] Address [address] [facility] [address] [place] [address] Phone Care Team Providers Care Industrial Service Technician Name Role Phone Kiana Oquendo MD Primary Care Provider Kiana Oquendo MD Unavailable [phone] Kendall Sprague MD Unavailable [phone] Ronny Lan MD Primary Care Provider + [phone] Encounter Details Date Type Department Care Team (Latest Contact Info) Description 04/03/2018 Transcribe Orders [facility] Vein Center [place] [address] [place] 2nd [place] [address] Xuan Grimes MD [address] [place] [address] [email or web address] Varicose veins of left lower [...] Center Ultrasound (04/03/2018 9:00 AM EDT) Narrative [facility] - 04/03/2018 9:00 AM EDT This study [...] documented as of this encounter Care Teams Industrial Service Technician Relationship Specialty Start Date End Date Kiana Oquendo MD [address] [address] PCP - General Family Medicine 12/27/17 06/17/23 Ronny Lan MD [address] [place] [address] [place] [address] PCP - General Internal Medicine 06/18/23 Kiana Oquendo MD [address] [place] [address] Historical LMR Provider 11/06/18 2 Kendall Sprague MD 500 [place] [address] [email or web address] Historical LMR Provider 11/06/18 documented as of this encounter Additional Source Comments The information contained in this document represents components of the legal health record. It is not the complete legal health record.[facility]
--- OUTSIDE RECORDS SUMMARY | 2025-06-25 11:37 | XMS_ITS | Encounter Summary ---
Author Organization [facility] Address [address] [facility] [address] [place] [address] Phone Care Team Providers Care Manager Statistics Name Role Phone Ronny Lan MD Primary Care Provider [phone] Encounter Details Date Type Department Care Team (Late st Contact Info) Description 08/26/2023 Procedure Pass [place] Admitting Dept - Virtual Department 30 [place] [address] Social History Tobacco Use Types Packs/Day Years [...] documented as of this encounter Care Teams Manager Statistics Relationship Specialty Start Date End Date Ronny Lan MD [address] [place] [address] Dr [address] [place] [address] PCP - General Internal Medicine 06/18/23 documented as of this encounter Additional Source Comments The information contained in this document represents components of the legal health record. It is not the complete legal health record.[facility]
--- OUTSIDE RECORDS SUMMARY | 2025-06-25 11:37 | XMS_ITS | Encounter Summary ---
Author Organization [facility] Address [address] [facility] [address] [place] [address] Phone Care Team Providers Care Python Programmer Name Role Phone Kiana Oquendo MD Primary Care Provider Kiana Oquendo MD Primary Care Provider Kiana Oquendo MD Unavailable [phone] Kendall Sprague MD Unavailable [phone] Ronny Lan MD Primary Care Provider [phone] Encounter Details Date Type Department Care Team (Late st Contact Info) Description 06/26/2017 Procedure Pass [facility] [address] [place] [address] Social History Tobacco Use Types Packs/Day Years [...] documented as of this encounter Care Teams Python Programmer Relationship Specialty Start Date End Date Kiana Oquendo MD 360 [facility] 9 [place] [address] PCP - General Family Medicine 05/13/17 12/26/17 Kiana Oquendo MD [address] [address] PCP - General Family Medicine 12/27/17 06/17/23 Ronny Lan MD [address] [place] [address] [place] [address] PCP - General Internal Medicine 06/18/23 Kiana Oquendo MD [address] [address] Historical LMR Provider 11/06/18 2 Kendall Sprague MD 500 [place] [address] [email or web address] Historical LMR Provider 11/06/18 documented as of this encounter Additional Source Comments The information contained in this document represents components of the legal health record. It is not the complete legal health record.[facility]
--- OUTSIDE RECORDS SUMMARY | 2025-06-25 11:37 | XMS_ITS | Encounter Summary ---
Author Organization [facility] Address [address] [facility] [address] [place] [address] Phone Care Team Providers Care Financial Foundations Representative Name Role Phone Kiana Oquendo MD Primary Care Provider Kiana Oquendo MD Primary Care Provider Kiana Oquendo MD Unavailable [phone] Kendall Sprague MD Unavailable [phone] Ronny Lan MD Primary Care Provider [phone] Encounter Details Date Type Department Care Team (Late st Contact Info) Description 06/26/2017 Procedure Pass [facility] 70 [place] [address] Social History Tobacco Use Types Packs/Day Years [...] documented as of this encounter Care Teams Financial Foundations Representative Relationship Specialty Start Date End Date Kiana Oquendo MD 360 [facility] 9 [place] [address] PCP - General Family Medicine 05/13/17 12/26/17 Kiana Oquendo MD [address] [address] PCP - General Family Medicine 12/27/17 06/17/23 Ronny Lan MD [address] [place] [address] [place] [address] PCP - General Internal Medicine 06/18/23 Kiana Oquendo MD [address] [address] Historical LMR Provider 11/06/18 2 Kendall Sprague MD 500 [place] [address] [email or web address] Historical LMR Provider 11/06/18 documented as of this encounter Additional Source Comments The information contained in this document represents components of the legal health record. It is not the complete legal health record.[facility]
--- OUTSIDE RECORDS SUMMARY | 2025-06-25 11:37 | XMS_ITS | Encounter Summary ---
Author Organization [facility] Address [address] [place] [address] Phone Care Team Providers Care Lime Puller Name Role Phone Kiana Oquendo MD Primary Care Provider Kiana Oquendo MD Primary Care Provider Kiana Oquendo MD Unavailable [phone] Kendall Sprague MD Unavailable [phone] Ronny Lan MD Primary Care Provider [phone] Encounter Details Date Type Department Care Team (Late st Contact Info) Description 07/10/2017 Ancillary Orders [facility] 70 [place] [address] Terence Santos MD [address] Nicki Gu[address] [address] Chest pain, unspecified type Social History Tobacco [...] 230/112 mm Hg at peak exercise (RPP: 94975). Oxygen saturation remained unchanged at 99% during [...] systolic function. Stress ECG tracings available from [facility]'s [employer]. Thank you for referring this [...] to 230/112 mmHg at peak exercise (RPP: 24205). Oxygen saturation remained unchangedat 99% during exercise. [...] systolic function. Stress ECG tracings available from [facility]'s [employer] Web Applications. Thank you for referring this [...] documented as of this encounter Care Teams Lime Puller Relationship Specialty Start Date End Date Kiana Oquendo MD [address] [address] PCP - General Family Medicine 05/13/17 12/26/17 Kiana Oquendo MD [address] [place] [address] PCP - General Family Medicine 12/27/17 06/17/23 Ronny Lan MD [address] [place] [address] [place] [address] PCP - General Internal Medicine 06/18/23 Kiana Oquendo MD [address] [address] Historical LMR Provider 11/06/18 2 Kendall Sprague MD [address] [place] [address] [email or web address] Historical LMR Provider 11/06/18 documented as of this encounter Additional Source Comments The information contained in this document represents components of the legal health record. It is not the complete legal health record.[facility]
--- OUTSIDE RECORDS SUMMARY | 2025-06-25 11:37 | XMS_ITS | Patient Health Record ---
Author Organization [facility] Address [address] [address] Care Team Providers Care Quartz Miner Blasting Name Role Phone Kiana Hillamn MD Primary Care Provider Unavailable Zacarias Mayorga Unavailable [phone] Reason For Referral No Information Medications Medication SIG (Take, Route, Frequency, Duration) Notes Start Date End Date Status metFORMIN HCl 500 MG 1 tablet with meals Orally Twice a day Active Vitamin D (Ergocalciferol) 27480 UNIT 1 capsule Orally Active traZODone HCl [...] due to varicose veins of left leg ([id number] 80441) Varicose veins of left lower extremities with pain (I83.812) Active confirmed Plan Of Treatment No Information Insurance Providers Payer Name Payer Address Payer Phone Subscriber Number Group Number Insured Name Patient Relationship to Insured Coverage Start Date Coverage End Date Medicaid [address] [place] [address] [id number] Linnette Dunne Self - patient is the insured Medical (General) History Medical History History ICD Code 1. Varicose Veins 2. Lupus; lab diagnosed 3. Claudication 4. Hypertension 5. Asthma 6. Gastro_Esophageal Reflux Disease 7. Non Smoker
[2025-06-25 12:23] LABS: Appearance Urine Clear; Glucose Urine UA Negative (Negative); PH 7.0 (5.0-9.0); Specific Gravity - Urine 1.010 (1.005-1.025); UMIC TRIGGER UACC YES
[2025-06-25 12:35] LABS: Cannabinoid Screen Urine Not Detected (Not Detect)
--- NOTE | 2025-06-25 14:20 | PC.NURSE ---
pt still verbalizing an increase in anxiety. medication administered per provider order. effectiveness pending. otherwise vss and up to date. nsr on the cardiac rehabilitation program director. POC rechecked - once again displaying 85mg/dL. plan of care ongoing. call hoang placed within reach.
--- NOTE | 2025-06-25 16:07 | ECG_ITS ---
Test Reason : WEAKNESS Blood Pressure : */* mmHG Vent. Rate : 60 BPM Atrial Rate : 60 BPM P-R Int : 152 ms QRS Dur : 82 ms QT Int : 408 ms P-R-T Axes : 39 4 20 degrees QTcB Int : 408 ms Normal sinus rhythm Minimal voltage criteria for LVH, may be normal variant ( R in aVL ) Borderline ECG When compared with ECG of 24-Oct-2024 06:18, No significant change was found Referred By: Bulmaro Garnett Electronically Signed By: TALON CORTES
[2025-06-25 16:54] LABS: Troponin-I High Sensitivity < 2.7 ng/L (<3.5-17.0)
[2025-06-25 16:59] LABS: Glucose, Whole Blood 85 mg/dL (60-115)
== END 2025-06-25 18:36 | disposition home or self-care (01) ==
PROVIDERS: Physician Assistant; Emergency Provider Emergency Medicine Emergency Medical Services; PCP Internal Medicine
DX: F41.0 Panic disorder [episodic paroxysmal anxiety] (principal); R42 Dizziness and giddiness; F41.9 Anxiety disorder, unspecified; R94.31 Abnormal electrocardiogram [ECG] [EKG]; M62.81 Muscle weakness (generalized); Z51.81 Encounter for therapeutic drug level monitoring; Z79.899 Other long term (current) drug therapy
CPT/HCPCS: 36415; 70450; 80053; 80307; 81001; 82947; 83735; 84484; 85025; 93005; 99284; 99285

== ENCOUNTER → 2025-06-25 10:58 | Outpatient (BNV) | payer OTHER, SELFPAY | PROVIDERS: Emergency Provider Emergency Medicine Emergency Medical Services; PCP Internal Medicine; Visit Provider Radiology Diagnostic Radiology | DX: R53.1 Weakness (principal) | CPT/HCPCS: 70450 ==

== ENCOUNTER → 2025-06-25 16:07 | Outpatient (BNV) | payer OTHER, SELFPAY | PROVIDERS: Emergency Provider Emergency Medicine Emergency Medical Services; PCP Internal Medicine; Visit Provider Internal Medicine | DX: R53.1 Weakness (principal) | CPT/HCPCS: 93010 ==

== ENCOUNTER 2025-06-26 07:59 | Outpatient (REF) | payer OTHER, SELFPAY ==
--- OUTSIDE RECORDS SUMMARY | 2025-06-26 08:04 | XMS_ITS | Encounter Summary ---
Author Organization [facility] Address [address] [place] [address] Phone Care Team Providers Care Radiology Rn Name Role Phone Kiana Oquendo MD Primary Care Provider Kiana Oquendo MD Primary Care Provider Kiana Oquendo MD Unavailable [phone] Kendall Sprague MD Unavailable [phone] Ronny Lan MD Primary Care Provider [phone] Encounter Details Date Type Department Care Team (Late st Contact Info) Description 07/10/2017 Ancillary Orders [facility] 70 [place] [address] Terence Santos MD [address] [address] Chest pain, unspecified type Social History Tobacco [...] Dunne exercised for 5:30 minutes of a Coel protocol. Oxygen saturation was measured at rest and stress using a pulse-oximeter. The heart rate increased from 63 bpm at rest to a peak heart rate of 164 bpm (93% age predicted maximal heart rate), and the blood pressure increased from 140/90 mm Hg at rest to 230/112 mm Hg at peak exercise (RPP: 66293). Oxygen saturation remained unchanged at 99% during [...] systolic function. Stress ECG tracings available from [facility]'s [employer] Web Applications. Thank you for referring this [...] to 230/112 mmHg at peak exercise (RPP: 80123). Oxygen saturation remained unchangedat 99% during exercise. [...] systolic function. Stress ECG tracings available from [facility]'s [employer] Web Applications. Thank you for referring this [...] documented as of this encounter Care Teams Radiology Rn Relationship Specialty Start Date End Date Kiana Oquendo MD [address] [address] PCP - General Family Medicine 05/13/17 12/26/17 Kiana Oquendo MD [address] [place] [address] PCP - General Family Medicine 12/27/17 06/17/23 Ronny Lan MD [address] [place] [address] [place] [id number] PCP - General Internal Medicine 06/18/23 Kiana Oquendo MD [address] [address] Historical LMR Provider 11/06/18 2 Kendall Sprague MD [address] [place] [address] [email or web address] Historical LMR Provider 11/06/18 documented as of this encounter Additional Source Comments The information contained in this document represents components of the legal health record. It is not the complete legal health record.[facility]
--- OUTSIDE RECORDS SUMMARY | 2025-06-26 08:04 | XMS_ITS | Encounter Summary ---
Author Organization [facility] Address 399 [facility] [address] [place] [address] Phone Care Team Providers Care Customer Service Officer Name Role Phone Kiana Oquendo MD Primary Care Provider Kaina Oquendo MD Primary Care Provider Kiana Oquendo MD Unavailable [phone] Kendall Sprague MD Unavailable [phone] Ronny Lan MD Primary Care Provider [phone] Encounter Details Date Type Department Care Team (Late st Contact Info) Description 06/26/2017 Procedure Pass [facility] 70 [place] [address] Social History Tobacco Use Types Packs/Day Years [...] documented as of this encounter Care Teams Customer Service Officer Relationship Specialty Start Date End Date Kiana Oquendo MD 360 [facility] 9 [place] [address] PCP - General Family Medicine 05/13/17 12/26/17 Kiana Oquendo MD [address] [address] PCP - General Family Medicine 12/27/17 06/17/23 Ronny Lan MD [address] [place] [address] [place] [address] PCP - General Internal Medicine 06/18/23 Kiana Oquendo MD [address] [address] Historical LMR Provider 11/06/18 2 Kendall Sprague MD 500 [place] [address] [email or web address] Historical LMR Provider 11/06/18 documented as of this encounter Additional Source Comments The information contained in this document represents components of the legal health record. It is not the complete legal health record.[facility]
--- OUTSIDE RECORDS SUMMARY | 2025-06-26 08:04 | XMS_ITS | Patient Health Record ---
Author Organization [facility] Address [address] [address] Care Team Providers Care Cofferdam Construction Supervisor Name Role Phone Kiana Hillman MD Primary Care Provider Unavailable aZcarias Mayorga Unavailable [phone] Reason For Referral No Information Medications Medication SIG (Take, Route, Frequency, Duration) Notes Start Date End Date Status metFORMIN HCl 500 MG 1 tablet with meals Orally Twice a day Active Vitamin D (Ergocalciferol) 84085 UNIT 1 capsule Orally Active traZODone HCl [...] due to varicose veins of left leg ([id number] [address]) Varicose veins of left lower extremities with pain (I83.812) Active confirmed Plan Of Treatment No Information Insurance Providers Payer Name Payer Address Payer Phone Subscriber Number Group Number Insured Name Patient Relationship to Insured Coverage Start Date Coverage End Date Medicaid [address] [place] [address] [id number] Linnette Dunne Self - patient is the insured Medical (General) History Medical History History ICD Code 1. Varicose Veins 2. Lupus; lab diagnosed 3. Claudication 4. Hypertension 5. Asthma 6. Gastro_Esophageal Reflux Disease 7. Non Smoker
--- OUTSIDE RECORDS SUMMARY | 2025-06-26 08:04 | XMS_ITS | Encounter Summary ---
Author Organization [facility] Address [address] [facility] [address] [place] [address] Phone Care Team Providers Care Aluminum Molder Name Role Phone Kiana Oquendo MD Primary Care Provider Kiana Oquendo MD Primary Care Provider Kiana Oquendo MD Unavailable [phone] Kendall Sprague MD Unavailable [phone] Ronny Lan MD Primary Care Provider [phone] Encounter Details Date Type Department Care Team (Late st Contact Info) Description 06/26/2017 Procedure Pass [facility] 70 [place] [address] Social History Tobacco Use Types Packs/Day Years [...] documented as of this encounter Care Teams Aluminum Molder Relationship Specialty Start Date End Date Kiana Oquendo MD 360 [facility] 9 [place] [address] PCP - General Family Medicine 05/13/17 12/26/17 Kiana Oquendo MD [address] [place] [address] PCP - General Family Medicine 12/27/17 06/17/23 Ronny Lan MD [address] [place] [address] [place] [address] PCP - General Internal Medicine 06/18/23 Kiana Oquendo MD [address] [place] [address] Historical LMR Provider 11/06/18 2 Kendall Sprague MD 500 [place] [address] [email or web address] Historical LMR Provider 11/06/18 documented as of this encounter Additional Source Comments The information contained in this document represents components of the legal health record. It is not the complete legal health record.[facility]
--- OUTSIDE RECORDS SUMMARY | 2025-06-26 08:05 | XMS_ITS | Encounter Summary ---
Author Organization [facility] Address [address] [facility] [address] [place] [address] Phone Care Team Providers Care Sander Wooden Pencils Name Role Phone Kiana Oquendo MD Primary Care Provider Kiana Oquendo MD Unavailable [phone] Kendall Sprague MD Unavailable [phone] Ronny Lan MD Primary Care Provider + [phone] Encounter Details Date Type Department Care Team (Latest Contact Info) Description 05/21/2018 Transcribe Orders [facility] Vein Center [address] [place] [address] Justus Mitchell [address] [place] [address] [email or web address] Symptomatic varicose veins of left lower [...] Center Ultrasound (05/21/2018 9:25 AM EDT) Narrative [facility] - 05/21/2018 9:25 AM EDT This study [...] documented as of this encounter Care Teams Sander Wooden Pencils Relationship Specialty Start Date End Date Kiana Oquendo MD [address] [address] PCP - General Family Medicine 12/27/17 06/17/23 Ronny Lan MD [address] [place] [address] [place] [address] PCP - General Internal Medicine 06/18/23 Kiana Oquendo MD [address] [place] [address] Historical LMR Provider 11/06/18 2 Kendall Sprague MD [address] [place] [address] [email or web address] Historical LMR Provider 11/06/18 documented as of this encounter Additional Source Comments The information contained in this document represents components of the legal health record. It is not the complete legal health record.[facility]
--- OUTSIDE RECORDS SUMMARY | 2025-06-26 08:06 | XMS_ITS | Clinical Summary ---
Author Organization [facility] Address [address] [facility] [address] [place] [address] Phone Care Team Providers Care Therapeutic Massage Technician Name Role Phone Ronny Lan MD Primary Care Provider [phone] Allergies No known active allergies Medications VENTOLIN [...] topic Medical Devices Not on file Insurance [facility] NON NSPG PCP BESSIE CLARITY CONNECTORCARE [facility] NON NSPG PCP BESSIE CLARITY CONNECTORCARE [facility] NON NSPG PCP SILVER CLARITY CONNECTORCARE [employer] NON NSPG PCP SILVER CLARITY CONNECTORCARE [employer] NON NSPG PCP SILVER CLARITY [facility] P[facility] BESSIE [facility] Advance Directives For more information, please contact: [phone] (9AM - 5PM [place], Saturday-Saturday) * Full Code (Latest Code Status on File) Date Activated Date Inactivated Comments 08/26/2023 7:11 AM Question Answer Comments Code Status Confirmed With: Patient Care Teams Therapeutic Massage Technician Relationship Specialty Start Date End Date Ronny Lan MD [address] [place] [address] [place] [address] PCP - General Internal Medicine 06/18/23 Additional Source Comments The information contained in this document represents components of the legal health record. It is not the complete legal health record.[facility]
--- OUTSIDE RECORDS SUMMARY | 2025-06-26 08:06 | XMS_ITS | Encounter Summary ---
Author Organization [facility] Address [address] [facility] [address] [place] [address] Phone Care Team Providers Care Scrap Baler Name Role Phone Kiana Oquendo MD Primary Care Provider Kiana Oquendo MD Unavailable [phone] Kendall Sprague MD Unavailable [phone] Ronny Lan MD Primary Care Provider + [phone] Encounter Details Date Type Department Care Team (Latest Contact Info) Description 05/08/2018 Transcribe Orders [facility] Vein Center [address] [place] [address] Justus Mitchell [address] [place] [address] [email or web address] Symptomatic varicose veins of left lower extremity [...] Center Ultrasound (05/08/2018 7:55 AM EDT) Narrative [facility] - 05/08/2018 7:55 AM EDT This study [...] documented as of this encounter Care Teams Scrap Baler Relationship Specialty Start Date End Date Kiana Oquendo MD [address] [address] PCP - General Family Medicine 12/27/17 06/17/23 Ronny Lan MD [address] [place] [address] [place] [address] PCP - General Internal Medicine 06/18/23 Kiana Oquendo MD [address] [place] [address] Historical LMR Provider 11/06/18 2 Kendall Sprague MD [address] [place] [address] [email or web address] Historical LMR Provider 11/06/18 documented as of this encounter Additional Source Comments The information contained in this document represents components of the legal health record. It is not the complete legal health record.[facility]
--- OUTSIDE RECORDS SUMMARY | 2025-06-26 08:07 | XMS_ITS | Encounter Summary ---
Author Organization [facility] Address [address] [facility] [address] [place] [address] Phone Care Team Providers Care Putty Tinter Maker Name Role Phone Kiana Oquendo MD Primary Care Provider Kiana Oquendo MD Unavailable [phone] Kendall Sprague MD Unavailable [phone] Ronny Lan MD Primary Care Provider + [phone] Encounter Details Date Type Department Care Team (Latest Contact Info) Description 04/03/2018 Transcribe Orders [facility] Vein Center [place] [address] [address] [place] [address] Xuan Grimes MD [address] [place] [address] [email or web address] Varicose veins of left lower extremity with [...] Center Ultrasound (04/03/2018 9:00 AM EDT) Narrative [facility] - 04/03/2018 9:00 AM EDT This study [...] documented as of this encounter Care Teams Putty Tinter Maker Relationship Specialty Start Date End Date Kiana Oquendo MD [address] [address] PCP - General Family Medicine 12/27/17 06/17/23 Ronny Lan MD [address] [place] [address] [place] [address] PCP - General Internal Medicine 06/18/23 Kiana Oquendo MD [address] [place] [address] Historical LMR Provider 11/06/18 2 Kendall Sprague MD [address] [place] [address] [email or web address] Historical LMR Provider 11/06/18 documented as of this encounter Additional Source Comments The information contained in this document represents components of the legal health record. It is not the complete legal health record.[facility]
--- OUTSIDE RECORDS SUMMARY | 2025-06-26 08:07 | XMS_ITS | Encounter Summary ---
Author Organization [facility] Address [address] [facility] [address] [place] [address] Phone Care Team Providers Care Television News Reporter Name Role Phone Kiana Oquendo MD Primary Care Provider Kiana Oquendo MD Unavailable [phone] Kendall Sprague MD Unavailable [phone] Ronny Lan MD Primary Care Provider + [phone] Encounter Details Date Type Department Care Team (Latest Contact Info) Description 04/17/2018 Transcribe Orders [facility] Vein Center [place] [address] [address] 2nd [place] [address] Xuan Grimes MD [address] [place] [address] [email or web address] Varicose veins of right lower extremity with [...] Center Ultrasound (04/17/2018 7:56 AM EDT) Narrative [facility] - 04/17/2018 7:56 AM EDT This [...] documented as of this encounter Care Teams Television News Reporter Relationship Specialty Start Date End Date Kiana Oquendo MD [address] [address] PCP - General Family Medicine 12/27/17 06/17/23 Ronny Lan MD [address] [place] [address] [place] [address] PCP - General Internal Medicine 06/18/23 Kiana Oquendo MD [address] [address] Historical LMR Provider 11/06/18 2 Kendall Sprague MD 500 [place] [address] [email or web address] Historical LMR Provider 11/06/18 documented as of this encounter Additional Source Comments The information contained in this document represents components of the legal health record. It is not the complete legal health record.[facility]
--- OUTSIDE RECORDS SUMMARY | 2025-06-26 08:07 | XMS_ITS | Encounter Summary ---
Author Organization [facility] Address [address] [facility] [address] [place] [address] Phone Care Team Providers Care Operations Lead Name Role Phone Ronny Lan MD Primary Care Provider [phone] Encounter Details Date Type Department Care Team (Late st Contact Info) Description 08/26/2023 Procedure Pass OR Admitting Dept - Virtual Department [address] [place] [address] Social History Tobacco Use Types Packs/Day Years [...] documented as of this encounter Care Teams Operations Lead Relationship Specialty Start Date End Date Ronny Lan MD [address] [place] [address] Dr [address] [place] [address] PCP - General Internal Medicine 06/18/23 documented as of this encounter Additional Source Comments The information contained in this document represents components of the legal health record. It is not the complete legal health record.[facility]
[2025-06-26 08:49] LABS: Hemoglobin A1C 151.8995 umol/L; Total Hemoglobin (HGBA1C) 3622.2787 umol/L
[2025-06-26 08:57] LABS: Alanine Aminotransferase 25 U/L (0-31); Albumin Level 4.0 g/dL (3.5-5.0); Alkaline Phosphatase 72 U/L (39-117); Anion Gap 9 (12-20); Aspartate Amino Transferase 33 U/L (5-31); Blood Urea Nitrogen 12 mg/dL (9-16); Calcium 8.5 mg/dL (8.4-10.2); Carbon Dioxide 27 mmol/L (22-29); Chloride 107 mmol/L (96-108); Estimated Glomerular Filt Rate > 60; Potassium 4.3 mmol/L (3.3-5.1); Sodium 139 mmol/L (135-145); Total Protein 6.6 g/dL (6.5-8.0)
== END 2025-06-26 08:00 | disposition home or self-care (01) ==
LOC: HO.LAB 07:59
PROVIDERS: PCP Internal Medicine; Visit Provider Internal Medicine
DX: R73.9 Hyperglycemia, unspecified (principal)
CPT/HCPCS: 36415; 80053; 83036

== ENCOUNTER 2025-06-29 14:55 | Outpatient (AMB) | payer OTHER, SELFPAY ==
--- NOTE | 2025-06-29 15:12 | MHC.PC.OV ---
Vital Signs 06/29/25 15:13 Height 5 ft 1 in Weight 163 lb 6 oz BMI 30.9 BP 132/80 Blood Pressure Location Lt brachial Position Sitting Pulse 75 Pulse Source Pulse Oximeter Temp 97.3 F Temp Source Temporal Artery Scan Pulse Oximetry (%) 98 Oxygen Delivery Method Room Air Intake Visit Reasons: low blood sugar readings Intake Note: Patient is here to follow up on Low blood sugar readings. Medical Front Desk Coordinator Required: No Fruit Press Operator: Not Required per policy Accompanied by: Self / Same As Patient Allergies No Known Allergies (No Known Allergies*) Allergy (Verified 06/29/25 15:13) Medication List - Last Reconciled 06/29/25 by Nikhil Brown MD acetaminophen 650 mg PO Q6H PRN albuterol sulfate 90 mcg/actuation (ProAir HFA) 1 inh inhalation QID PRN 30 days blood-glucose sensor ([employer] Jihan 3 Plus Sensor device) As directed buspirone mg PO cholecalciferol (vitamin D3) 50 mcg PO DAILY 90 days cholecalciferol (vitamin D3) 50 mcg PO DAILY clonazepam 0.5 mg PO DAILY PRN escitalopram oxalate 10 mg PO QAM ferrous sulfate 325 mg PO DAILY fluticasone propionate 50 mcg/actuation 1 spray intranasal BID ibuprofen 600 mg PO Q8H PRN hymqqt-kjqkeaym-rxoaasr 24,000-76,000 -120,000 unit (Creon) 1 cap PO QID pantoprazole 40 mg PO QAM sennosides (Natural Senna Laxative) 17.2 mg (2 x 8.6 mg) PO BEDTIME Tobacco use date assessed: 06/29/25 Dental Screening Dental Screen Date: 06/11/25 HPI HPI Comments History of Present Illness Details The patient is a 54-year-old female presenting with low blood sugar levels and related symptoms. She reports episodes of hypoglycemia, characterized by dizziness and feeling faint, which occur intermittently during her daily activities. The patient has a history of gastric bypass surgery, which has led to nutritional deficiencies and gastrointestinal issues such as possible ulcers and reflux. I called her paving plant operator during the visit who prescribed her glucose continuous monitor. The monitor showed two episodes of hypoglycemia. Her Hemoglobin A1c was noted to be borderline at 6%, indicating a risk for diabetes, and she has been approved for continuous glucose monitoring sensors by her insurance. [facility] Medical History Vitamin D deficiency Obesity (BMI 30-39.9) Constipation GERD without esophagitis Gastritis Asthma Overweight (BMI 25.0-29.9) ZHOU positive Varicose veins of bilateral lower extremities with pain Surgical History History of loop electrical excision procedure (LEEP) History of esophagogastroduodenoscopy (EGD) Hx of colonoscopy Hx of laparoscopy Status post laser ablation of incompetent vein H/O tubal ligation Hx of cholecystectomy (~2015) H/O gastric bypass (~2018) Family History Father HTN (hypertension) Diabetes mellitus Mother HTN (hypertension) Diabetes mellitus Asthma Brother No problems noted. Brother No problems noted. Brother No problems noted. Brother No problems noted. Sister No problems noted. Daughter No problems noted. Son No problems noted. Son No problems noted. Paternal Aunt Breast cancer Family/Other Colon cancer Maternal Aunt Ovarian cancer Social History Household Members: Spouse Housing: House Are you a primary care manager cna to a significant other at home: No Do you presently have visiting nurse or other home services: No Alcohol intake: current Alcohol intake frequency: holidays/special occasions only Alcohol type: wine Patient Tobacco Use Status: Never used Tobacco e-Cigarette/Vaping Use: Never Used Second Hand Smoke Exposure: No service: No Current occupational status: employed Cognitive needs: No Hearing needs: No Vision needs: Yes (Glasses) Female Reproductive History Menstrual Age of Menarche: 14 Questionnaire PHQ-9 Over the last 2 weeks, how often have you been bothered by any of the following problems? 9. Thoughts that you would be better off or of hurting yourself in some way: nearly every day Source: Developed by Drs. Merritt Vargas, Nicole Lagunas, Natan Ceron and colleagues, with an educational ludmila from [employer]. Thrive Questionnaire Date Thrive assessed: 06/29/25 I am a: Patient What is your living situation today?: I choose not to answer this question Within the past 12 months, did the food you bought not last and you didn't have the money to get more?: I choose not to answer this question Within the past 12 months, did you worry whether your food would run out before you got money to buy more?: I choose not to answer this question Do you have trouble paying for medicines?: No Do you have trouble getting transportation to medical appointments?: No Do you have trouble paying your heating and electricity bill?: No Do you have trouble taking care of your child, family member or friend?: No Do you have trouble with day-to-day activities such as bathing, preparing meals, shopping, managing finances, etc.?: No Are you currently unemployed and looking for a job?: I choose not to answer this question Are you interested in more education?: I choose not to answer this question Please select the resources that you would like help with: None Currently or been in a relationship where the following occur: I choose not to answer THRIVE Score: 0 AUDIT C Alcohol Use Questionnaire (AUDIT-C) 1. How often do you have a drink containing alcohol?: Never Total Score: 0 LUISITO-7 AMB Questionnaire LUISITO-7 Date LUISITO - 7 assessed: 06/11/25 Feeling nervous, anxious, or on edge: 3 = Nearly every day Not being able to stop or control worryin = Not at all Worrying too much about different things: 0 = Not at all Trouble relaxin = Not at all Being so restless that it is hard to sit still: 0 = Not at all Becoming easily annoyed or irritable: 0 = Not at all Feeling afraid as if something awful might happen: 0 = Not at all Total LUISITO-7 score (0-4 normal; 5-9 mild; 10-14 moderate; 15-21 severe): 3 Source: Developed by Drs. Merritt Vargas, Nicole Lagunas, Natan Ceron and colleagues, with an educational ludmila from [employer]. Review of Systems Const Details: Positives besides what was mentioned in HPI are in BOLD Constitutional: No Weight Change, No Fever, No Chills, No Night Sweats, No Fatigue, No Malaise ENT/Mouth: No Hearing Changes, No Ear Pain, No Nasal Congestion, No Sinus Pain, No Hoarseness, No sore throat, No Rhinorrhea, No Swallowing Difficulty Eyes: No Eye Pain, No Swelling, No Redness, No Foreign Body, No Discharge, No Vision Changes Cardiovascular: No Chest Pain, No SOB, No PND, No Dyspnea on Exertion, No Orthopnea, No Claudication, No Edema, No Palpitations Respiratory: No Cough, No Sputum, No Wheezing, No Smoke Exposure, No Dyspnea Gastrointestinal: No Nausea, No Vomiting, No Diarrhea, No Constipation, No Pain, No Heartburn, No Anorexia, No Dysphagia, No Hematochezia, No Melena, No Flatulence, No Jaundice Genitourinary: No Dysmenorrhea, No DUB, No Dyspareunia, No Dysuria, No Urinary Frequency, No Hematuria, No Urinary Incontinence, No Urgency, No Flank Pain, No Urinary Flow Changes, No Hesitancy Musculoskeletal: No Arthralgias, No Myalgias, No Joint Swelling, No Joint Stiffness, No Back Pain, No Neck Pain, No Injury History Skin: No Skin Lesions, No Pruritis, No Hair Changes, No Breast/Skin Changes, No Nipple Discharge Neuro: No Weakness, No Numbness, No Paresthesias, No Loss of Consciousness, No Syncope, No Dizziness, No Headache, No Coordination Changes, No Recent Falls Psych: No Anxiety/Panic, No Depression, No Insomnia, No Personality Changes, No Delusions, No Rumination, No SI/HI/AH/VH, No Social Issues, No Memory Changes, No Violence/Abuse Hx., No Eating Concerns Heme/Lymph: No Bruising, No Bleeding, No Transfusions History, No Lymphadenopathy Endocrine: No Polyuria, No Polydipsia, No Temperature Intolerance Physical exam (Primary Care) Vital Signs: Last Vital Signs Temp 97.3 F 06/29/25 15:13 Pulse 75 06/29/25 15:13 BP 132/80 06/29/25 15:13 Pulse Ox 98 06/29/25 15:13 Oxygen Delivery Method Room Air 06/29/25 15:13 BMI result Body Mass Index 30.9 Tobacco/Smoking Status: Tobacco use Status Tobacco use date assessed 06/29/25 06/29/25 15:19 Patient Tobacco Use Status Never used Tobacco 06/29/25 15:19 e-Cigarette/Vaping Use Never Used 06/29/25 15:19 Thrive Assessment: Date of Thrive Assessment Date Thrive assessed 06/29/25 06/29/25 15:19 Currently or been in a relationship where the following occur: I choose not to answer Const Other: Pertinent findings are in BOLD GENERAL APPEARANCE NAD, activity normal for age, well developed/ well nourished, no cyanosis, pallor, or diaphoresis. EYES lids/conjunctiva normal. EARS/NOSE/THROAT Mucous membranes moist, nares normal, lips/teeth normal uvula midline without oral pharyngeal erythema, exudate or swelling TMs normal bilaterally. No lymphangitis/lymphedema. HEAD/NECK normocephalic atraumatic, no facial trauma, neck is supple. RESPIRATORY respiratory effort normal, speaks in full sentences, no tripod position, no accessory muscle use. Lungs clear to auscultation without rhonchi, wheezes, rales CARDIAC Regular rate and rhythm, no edema. ABDOMINAL Soft, ND/NT. No evidence of fluid wave. No pulsatile masses on exam, rebound tenderness, Sinclair sign or pain over Mcburney's point. MUSCLES/EXTREMITIES No abnormal range of motion, no swelling. SKIN Warm, pink and dry. No rashes, dermatoses, petechiae or lesions. NEUROLOGICAL Speech is clear and appropriate. Normal level of consciousness. Gait and coordination are normal. 5/5 strength in all extremities. PSYCH Normal mood and affect. Judgement/competence is appropriate Coding Level of Care Code Est Pt Level 3 (50771) Diagnoses Diabetes E11.9 Time Spent (min) 20 Assessment & Plan Assessment & Plan (1) Diabetes: Code(s): E11.9 - Type 2 diabetes mellitus without complications Category: Medical Plan: Pre-authorization for Glycemia sensor filled and submitted. Patient will see Director Of Plant Operations for further Reccs in 07/2025. Plan I discussed with the patient the importance of managing her hypoglycemia through dietary adjustments, including the intake of protein or fat to stabilize blood sugar levels. We also talked about the borderline Hemoglobin A1c and the need for lifestyle modifications to prevent diabetes. She will follow-up with her paving plant operator for further reccomendations. Orders: Orders AMB Random Glucose (hemocue) Today Z13.9 - Encounter for screening, unspecified
[2025-06-29 15:13] VITALS: BP 132/80; PULSE 75; TEMP 36.3; O2SAT 98; BMI 30.9
--- OUTSIDE RECORDS SUMMARY | 2025-06-29 17:59 | XMS_ITS | Encounter Summary ---
Author Organization [facility] Address [address] [facility] [address] [place] [address] Phone Care Team Providers Care Soils Analyst Name Role Phone Kiana Oquendo MD Primary Care Provider Kiana Oquendo MD Unavailable [phone] Kendall Sprague MD Unavailable [phone] Ronny Lan MD Primary Care Provider [phone] Encounter Details Date Type Department Care Team (Latest Contact Info) Description 05/21/2018 Transcribe Orders [facility] Vein Center [address] [place] [address] Justus Mitchell [address] [place] [address] [email or web address] Symptomatic varicose veins of left lower [...] Center Ultrasound (05/21/2018 9:25 AM EDT) Narrative PAN_[facility] - 05/21/2018 9:25 AM EDT This [...] documented as of this encounter Care Teams Soils Analyst Relationship Specialty Start Date End Date Kiana Oquendo MD [address] [address] PCP - General Family Medicine 12/27/17 06/17/23 Ronny Lan MD [address] [place] [address] [place] [address] PCP - General Internal Medicine 06/18/23 Kinaa Oquendo MD [address] [place] [address] Historical LMR Provider 11/06/18 2 Kendall Sprague MD [address] [place] [address] [email or web address] LMR Provider 11/06/18 documented as of this encounter Additional Source Comments The information contained in this document represents components of the legal health record. It is not the complete legal health record.[facility]
--- OUTSIDE RECORDS SUMMARY | 2025-06-29 17:59 | XMS_ITS | Encounter Summary ---
Author Organization [facility] Address [address] [facility] [address] [place] [address] Phone Care Team Providers Care Property Utilization Officer Name Role Phone Kiana Oquendo MD Primary Care Provider Kiana Oquendo MD Unavailable [phone] Kendall Sprague MD Unavailable [phone] Ronny Lan MD Primary Care Provider + [phone] Encounter Details Date Type Department Care Team (Latest Contact Info) Description 04/03/2018 Transcribe Orders [facility] Vein Center [place] [address] [address] [place] [address] Xuan Grimes MD [address] [place] [address] [email or web address] Varicose veins of left lower extremity with [...] Center Ultrasound (04/03/2018 9:00 AM EDT) Narrative [facility] - 04/03/2018 9:00 AM EDT This [...] documented as of this encounter Care Teams Property Utilization Officer Relationship Specialty Start Date End Date Kiana Oquendo MD [address] [address] PCP - General Family Medicine 12/27/17 06/17/23 Ronny Lan MD [address] [place] [address] [place] [address] PCP - General Internal Medicine 06/18/23 Kiana Oquendo MD [address] [place] [address] Historical LMR Provider 11/06/18 2 Kendall Sprague MD [address] [place] [address] [email or web address] Historical LMR Provider 11/06/18 documented as of this encounter Additional Source Comments The information contained in this document represents components of the legal health record. It is not the complete legal health record.[facility]
--- OUTSIDE RECORDS SUMMARY | 2025-06-29 17:59 | XMS_ITS | Encounter Summary ---
Author Organization [facility] Address [address] [place] [address] Phone Care Team Providers Care Procedures Tech Name Role Phone Kiana Oquendo MD Primary Care Provider Kiana Oquendo MD Primary Care Provider Kiana Oquendo MD Unavailable [phone] Kendall Sprague MD Unavailable [phone] Ronny Lan MD Primary Care Provider [phone] Encounter Details Date Type Department Care Team (Late st Contact Info) Description 07/10/2017 Ancillary Orders [facility] [address] [place] [address] Terence Santos MD [address] Nicki Guerrero [address] [address] Chest pain, unspecified type Social History Tobacco [...] 230/112 mm Hg at peak exercise (RPP: 05921). Oxygen saturation remained unchanged at 99% during [...] systolic function. Stress ECG tracings available from [facility]'s [employer]. Thank you for referring this [...] to 230/112 mmHg at peak exercise (RPP: 44616). Oxygen saturation remained unchangedat 99% during exercise. [...] systolic function. Stress ECG tracings available from [facility]'s [employer]. Thank you for referring this [...] documented as of this encounter Care Teams Procedures Tech Relationship Specialty Start Date End Date Kiana Oquendo MD [address] [address] PCP - General Family Medicine 05/13/17 12/26/17 Kiana Oquendo MD [address] [place] [address] PCP - General Family Medicine 12/27/17 06/17/23 Ronny Lan MD [address] [place] [address] [place] [address] PCP - General Internal Medicine 06/18/23 Kiana Oquendo MD [address] [address] Historical LMR Provider 11/06/18 2 Kendall Sprague MD [address] [place] [address] [email or web address] Historical LMR Provider 11/06/18 documented as of this encounter Additional Source Comments The information contained in this document represents components of the legal health record. It is not the complete legal health record.[facility]
--- OUTSIDE RECORDS SUMMARY | 2025-06-29 17:59 | XMS_ITS | Encounter Summary ---
Author Organization [facility] Address [address] [facility] [address] [place] [address] Phone Care Team Providers Care Die Presser Name Role Phone Kiana Oquendo MD Primary Care Provider Kiana Oquendo MD Unavailable [phone] Kendall Sprague MD Unavailable [phone] Ronny Lan MD Primary Care Provider + [phone] Encounter Details Date Type Department Care Team (Latest Contact Info) Description 04/17/2018 Transcribe Orders [facility] Vein Center [place] [address] [address] [place] [address] Xuan Grimes MD [address] [place] [address] [email or web address] Varicose veins of right lower extremity [...] Center Ultrasound (04/17/2018 7:56 AM EDT) Narrative [facility] - 04/17/2018 7:56 AM EDT This [...] documented as of this encounter Care Teams Die Presser Relationship Specialty Start Date End Date Kiana Oquendo MD [address] [address] PCP - General Family Medicine 12/27/17 06/17/23 Ronny Lan MD [address] [place] [address] [place] [address] PCP - General Internal Medicine 06/18/23 Kiana Oquendo MD [address] [address] Historical LMR Provider 11/06/18 2 Kendall Sprague MD [address] [place] [address] [email or web address] Historical LMR Provider 11/06/18 documented as of this encounter Additional Source Comments The information contained in this document represents components of the legal health record. It is not the complete legal health record.[facility]
--- OUTSIDE RECORDS SUMMARY | 2025-06-29 17:59 | XMS_ITS | Encounter Summary ---
Author Organization [facility] Address [address] [facility] [address] [place] [address] Phone Care Team Providers Care Sharepoint Solutions Architect Name Role Phone Kiana Oquendo MD Primary Care Provider Kiana Oquendo MD Primary Care Provider Kiana Oquendo MD Unavailable [phone] Kendall Sprague MD Unavailable [phone] Ronny Lan MD Primary Care Provider [phone] Encounter Details Date Type Department Care Team (Late st Contact Info) Description 06/26/2017 Procedure Pass [facility] [address] [place] [address] Social History Tobacco Use Types Packs/Day Years [...] documented as of this encounter Care Teams Sharepoint Solutions Architect Relationship Specialty Start Date End Date Kiana Oquendo MD 360 [facility] 9 [place] [address] PCP - General Family Medicine 05/13/17 12/26/17 Kiana Oquendo MD [address] [address] PCP - General Family Medicine 12/27/17 06/17/23 Ronny Lan MD [address] [place] [address] [place] [address] PCP - General Internal Medicine 06/18/23 Kiana Oquendo MD [address] [address] Historical LMR Provider 11/06/18 2 Kendall Sprague MD 500 [place] [address] [email or web address] Historical LMR Provider 11/06/18 documented as of this encounter Additional Source Comments The information contained in this document represents components of the legal health record. It is not the complete legal health record.[facility]
--- OUTSIDE RECORDS SUMMARY | 2025-06-29 17:59 | XMS_ITS | Clinical Summary ---
Author Organization [facility] Address [address] [facility] [address] [place] [address] Phone Care Team Providers Care Engagement Engineer Name Role Phone Ronny Lan MD Primary Care Provider [phone] Allergies No known active allergies Medications VENTOLIN [...] topic Medical Devices Not on file Insurance [facility] NON NSPG PCP F[facility]EMAN CLARITY CONNECTORCARE [facility] NON NSPG PCP FREEMAN CLARITY CONNECTORCARE [employer] NON NSPG PCP SILVER CLARITY CONNECTORCARE [employer] NON NSPG PCP SILVER CLARITY CONNECTORCARE [employer] NON NSPG PCP SILVER CLARITY [facility] FREEMAN [facility] Advance Directives For more information, please contact: [phone] (9AM - 5PM [facility], Saturday-Saturday) * Full Code (Latest Code Status on File) Date Activated Date Inactivated Comments 08/26/2023 7:11 AM Question Answer Comments Code Status Confirmed With: Patient Care Teams Engagement Engineer Relationship Specialty Start Date End Date Ronny Lan MD [address] [place] [address] [place] [address] PCP - General Internal Medicine 06/18/23 Additional Source Comments The information contained in this document represents components of the legal health record. It is not the complete legal health record.[facility]
--- OUTSIDE RECORDS SUMMARY | 2025-06-29 17:59 | XMS_ITS | Encounter Summary ---
Author Organization [facility] Address [address] [facility] [address] [place] [address] Phone Care Team Providers Care Front Desk Supervisor Name Role Phone Kiana Oquendo MD Primary Care Provider Kiana Oquendo MD Unavailable [phone] Kendall Sprague MD Unavailable [phone] Ronny Lan MD Primary Care Provider [phone] Encounter Details Date Type Department Care Team (Latest Contact Info) Description 05/08/2018 Transcribe Orders [facility] [address] [place] [address] Justus Mitchell [address] [place] [address] [email or web address] Symptomatic varicose veins of left [...] Center Ultrasound (05/08/2018 7:55 AM EDT) Narrative [facility] - 05/08/2018 7:55 AM EDT This study [...] documented as of this encounter Care Teams Front Desk Supervisor Relationship Specialty Start Date End Date Kiana Oquendo MD [address] [address] PCP - General Family Medicine 12/27/17 06/17/23 Ronny Lan MD [address] [place] [address] [place] [address] PCP - General Internal Medicine 06/18/23 Kiana Oquendo MD [address] [place] [address] Historical LMR Provider 11/06/18 2 Kendall Sprague MD [address] [place] [address] [email or web address] Historical LMR Provider 11/06/18 documented as of this encounter Additional Source Comments The information contained in this document represents components of the legal health record. It is not the complete legal health record.[facility]
--- OUTSIDE RECORDS SUMMARY | 2025-06-29 17:59 | XMS_ITS | Encounter Summary ---
Author Organization [facility] Address [address] [facility] [address] [place] [address] Phone Care Team Providers Care Medicaid Billing Specialist Name Role Phone Ronny Lan MD Primary Care Provider [phone] Encounter Details Date Type Department Care Team (Late st Contact Info) Description 08/26/2023 Procedure Pass [place] Admitting Dept - Virtual Department 30 [place] [address] Social History Tobacco Use Types Packs/Day Years [...] documented as of this encounter Care Teams Medicaid Billing Specialist Relationship Specialty Start Date End Date Ronny Lan MD [address] [place] [address] Dr [address] [place] [address] PCP - General Internal Medicine 06/18/23 documented as of this encounter Additional Source Comments The information contained in this document represents components of the legal health record. It is not the complete legal health record.[facility]
--- OUTSIDE RECORDS SUMMARY | 2025-06-29 17:59 | XMS_ITS | Encounter Summary ---
Author Organization [facility] Address [address] [facility] [address] [place] [address] Phone Care Team Providers Care Web Architect Name Role Phone Kiana Oquendo MD Primary Care Provider Kiana Oquendo MD Primary Care Provider Kiana Oquendo MD Unavailable [phone] Kendall Sprague MD Unavailable [phone] Ronny Lan MD Primary Care Provider [phone] Encounter Details Date Type Department Care Team (Late st Contact Info) Description 06/26/2017 Procedure Pass [facility] 70 [place] [address] Social History Tobacco Use Types Packs/Day Years [...] documented as of this encounter Care Teams Web Architect Relationship Specialty Start Date End Date Kiana Oquendo MD 360 [facility] 9 [place] [address] PCP - General Family Medicine 05/13/17 12/26/17 Kiana Oquendo MD [address] [address] PCP - General Family Medicine 12/27/17 06/17/23 Ronny Lan MD [address] [place] [address] [place] [address] PCP - General Internal Medicine 06/18/23 Kiana Oquendo MD [address] [address] Historical LMR Provider 11/06/18 2 Kendall Sprague MD 500 [place] [address] [email or web address] Historical LMR Provider 11/06/18 documented as of this encounter Additional Source Comments The information contained in this document represents components of the legal health record. It is not the complete legal health record.[facility]
--- OUTSIDE RECORDS SUMMARY | 2025-06-29 17:59 | XMS_ITS | Patient Health Record ---
Author Organization [facility] Address [address] [address] Care Team Providers Care Intranet Specialist Name Role Phone Kiana Hillman MD Primary Care Provider Unavailable Zacarias Mayorga Unavailable [phone] Reason For Referral No Information Medications Medication SIG (Take, Route, Frequency, Duration) Notes Start Date End Date Status metFORMIN HCl 500 MG 1 tablet with meals Orally Twice a day Active Vitamin D (Ergocalciferol) 33262 UNIT 1 capsule Orally Active traZODone HCl [...] due to varicose veins of left leg ([id number] 15429) Varicose veins of left lower extremities with pain (I83.812) Active confirmed Plan Of Treatment No Information Insurance Providers Payer Name Payer Address Payer Phone Subscriber Number Group Number Insured Name Patient Relationship to Insured Coverage Start Date Coverage End Date Medicaid [address] [place] [address] [phone] [id number] Linnette Dunne Self - patient is the insured Medical (General) History Medical History History ICD Code 1. Varicose Veins 2. Lupus; lab diagnosed 3. Claudication 4. Hypertension 5. Asthma 6. Gastro_Esophageal Reflux Disease 7. Non Smoker
== END 2025-06-29 15:44 | disposition home or self-care (01) ==
LOC: HO.HMCH 14:56
PROVIDERS: PCP Internal Medicine; Visit Provider Internal Medicine
DX: E11.9 Type 2 diabetes mellitus without complications (principal)

== ENCOUNTER → 2025-06-29 14:55 | Outpatient (BNVA) | payer OTHER, SELFPAY | PROVIDERS: PCP Internal Medicine; Visit Provider Internal Medicine | DX: E11.9 Type 2 diabetes mellitus without complications (principal); Z98.84 Bariatric surgery status | CPT/HCPCS: 99212 ==

== ENCOUNTER 2025-07-05 14:58 | Outpatient (AMB) | payer OTHER, SELFPAY ==
--- NOTE | 2025-07-05 15:08 | MHC.OFFVIS ---
Vital Signs 07/05/25 15:14 Height 5 ft 1 in BP 130/84 Intake Visit Reasons: Annual Tower Helper Required: No Upholsterer Apprentice: Upholsterer Apprentice Present (trista) Accompanied by: Self / Same As Patient Allergies No Known Allergies (No Known Allergies*) Allergy (Verified 07/05/25 15:14) HPI Comments Details: Presenting for annual exam. No complaints. Last Pap/HPV was in 04/28 ASCUS HPV positive, colpo biopsy ECC was negative, this was followed by co testing in 03/30 which was negative Last Mammogram was BI-RADS 1 in 08/30 Last Colonoscopy was done in 01/27, the recommendation was to repeat in 10 years [facility] Medical History Vitamin D deficiency Obesity (BMI 30-39.9) Constipation GERD without esophagitis Gastritis Asthma Overweight (BMI 25.0-29.9) ZHOU positive Varicose veins of bilateral lower extremities with pain Surgical History History of loop electrical excision procedure (LEEP) History of esophagogastroduodenoscopy (EGD) Hx of colonoscopy Hx of laparoscopy Status post laser ablation of incompetent vein H/O tubal ligation Hx of cholecystectomy (~2014) H/O gastric bypass (~2017) Family History Father HTN (hypertension) Diabetes mellitus Mother HTN (hypertension) Diabetes mellitus Asthma Brother No problems noted. Brother No problems noted. Brother No problems noted. Brother No problems noted. Sister No problems noted. Daughter No problems noted. Son No problems noted. Son No problems noted. Paternal Aunt Breast cancer Family/Other Colon cancer Maternal Aunt Ovarian cancer Social History Household Members: Family Housing: House Are you a primary medical care manager to a significant other at home: No Do you presently have visiting nurse or other home services: No Alcohol intake: former Patient Tobacco Use Status: Never used Tobacco e-Cigarette/Vaping Use: Never Used Second Hand Smoke Exposure: No service: No Current occupational status: employed Cognitive needs: No Hearing needs: No Vision needs: Yes (Glasses) Female Reproductive History Menstrual Age of Menarche: 14 control method: copper IUCD Total pregnancies: 4 Full term: 4 Date of last pap smear: 12/05/22 (negative) History of abnormal pap smear: No Date of Mammogram: 08/26/24 (negative) History of abnormal mammogram: No Review of Systems Const All systems reviewed & are unremarkable except as noted in HPI and below Card Reports as per HPI Resp Reports as per HPI GI Reports as per HPI and Reports no additional complaints Reports as per HPI Physical Exam Vital Signs: Last Vital Signs BP 130/84 07/05/25 15:14 Const General: cooperative, healthy appearing and comfortable Chest Chest palpation & inspection: normal inspection of the chest and normal palpation of entire chest wall Breast/axilla inspection: normal inspection of the breasts and normal inspection of the axillae Breast/axilla palpation: normal palpation of the breasts, normal palpation of the axillae and no axillary lymphadenopathy Resp Effort & Inspection: normal respiratory effort Auscultation: clear to auscultation bilaterally Percussion: percussion normal Cardio Palpation: normal PMI Rate: regular rate Rhythm: regular rhythm Heart sounds: no murmurs and no rubs Peripheral pulses: Peripheral pulses 2+ throughout GI Inspection: Yes normal to inspection Palpation (GI): Soft to palpation, nontender, no guarding, not rigid and No hepatosplenomegaly present Percussion: Yes normal to percussion Auscultation: normal bowel sounds Rectal Exam - Female: deferred General: Yes bladder normal to palpation External Female Exam: No lesion Speculum Exam - Vagina: normal appearance of the vagina, normal palpation, normal vaginal discharge and not erythematous Speculum Exam - Cervix: normal appearance of the cervix and normal palpation Bimanual exam- vagina & uterus: normal bimanual exam, normal palpation, uterine size normal, bladder normal to palpation, consistency normal and normal palpation Bimanual Exam- Adnexa, other: normal adnexae, no masses and no tenderness Assessment & Plan Assessment & Plan (1) Well woman exam: Code(s): Z01.419 - Encounter for gynecological examination (general) (routine) without abnormal findings Category: Medical Plan: Co testing done. Counseled the patient about the recommended dietary allowance of 1200 mg of Calcium & 600 IU of vitamin D. Mammogram ordered. The patient was instructed to perform monthly self-breast exams and schedule annual exam in a year. All questions answered and the patient verbalized understanding. Orders: Orders MM tomosynthesis screening BI Today Z12.31 - Encounter for screening mammogram for malignant neoplasm of breast Coding Level of Care Code Est Pt Prev Care 18-39y(46509) Diagnoses Well woman exam Z01.419
[2025-07-05 15:14] VITALS: BP 130/84
--- OUTSIDE RECORDS SUMMARY | 2025-07-05 17:00 | XMS_ITS | Patient Health Record ---
Author Organization [facility] Address [address] [address] Care Team Providers Care Tonnage Compilation Clerk Name Role Phone Kiana Hillman MD Primary Care Provider Unavailable Zacarias Mayorga Unavailable [phone] Reason For Referral No Information Medications Medication SIG (Take, Route, Frequency, Duration) Notes Start Date End Date Status metFORMIN HCl 500 MG 1 tablet with meals Orally Twice a day Active Vitamin D (Ergocalciferol) 51439 UNIT 1 capsule Orally Active traZODone HCl [...] due to varicose veins of left leg ([id number] [address]) Varicose veins of left lower extremities with pain (I83.812) Active confirmed Plan Of Treatment No Information Insurance Providers Payer Name Payer Address Payer Phone Subscriber Number Group Number Insured Name Patient Relationship to Insured Coverage Start Date Coverage End Date Medicaid [address] [place] [address] [id number] Linnette Dunne Self - patient is the insured Medical (General) History Medical History History ICD Code 1. Varicose Veins 2. Lupus; lab diagnosed 3. Claudication 4. Hypertension 5. Asthma 6. Gastro_Esophageal Reflux Disease 7. Non Smoker
--- OUTSIDE RECORDS SUMMARY | 2025-07-05 17:00 | XMS_ITS | Encounter Summary ---
Author Organization [facility] Address [address] [place] [address] Phone Care Team Providers Care Eligibility Examiner Name Role Phone Kiana Oquendo MD Primary Care Provider Kiana Oquendo MD Primary Care Provider Kiana Oquendo MD Unavailable [phone] Kendall Sprague MD Unavailable [phone] Ronny Lan MD Primary Care Provider [phone] Encounter Details Date Type Department Care Team (Late st Contact Info) Description 07/10/2017 Ancillary Orders [facility] [address] [place] [address] Terence Santos MD 330 Nicki Guerrero [address] [address] Chest pain, unspecified type Social History Tobacco [...] 230/112 mm Hg at peak exercise (RPP: 21683). Oxygen saturation remained unchanged at 99% during [...] systolic function. Stress ECG tracings available from [facility]'s [employer]. Thank you for referring this [...] to 230/112 mmHg at peak exercise (RPP: 16147). Oxygen saturation remained unchangedat 99% during exercise. [...] systolic function. Stress ECG tracings available from [facility]'s [employer]. Thank you for referring this [...] documented as of this encounter Care Teams Eligibility Examiner Relationship Specialty Start Date End Date Kiana Oquendo MD [address] [address] PCP - General Family Medicine 05/13/17 12/26/17 Kiana Oquendo MD [address] [place] [address] PCP - General Family Medicine 12/27/17 06/17/23 Ronny Lan MD [address] [place] [address] [place] [address] PCP - General Internal Medicine 06/18/23 Kiana Oquendo MD [address] [address] Historical LMR Provider 11/06/18 2 Kendall Sprague MD [address] [place] [address] [email or web address] LMR Provider 11/06/18 documented as of this encounter Additional Source Comments The information contained in this document represents components of the legal health record. It is not the complete legal health record.[facility]
--- OUTSIDE RECORDS SUMMARY | 2025-07-05 17:00 | XMS_ITS | Encounter Summary ---
Author Organization [facility] Address [address] [facility] [address] [place] [address] Phone Care Team Providers Care Wire Weaving Loom Setter Name Role Phone Kiana Oquendo MD Primary Care Provider Kiana Oquendo MD Primary Care Provider Kiana Oquendo MD Unavailable [phone] Kendall Sprague MD Unavailable [phone] Ronny Lan MD Primary Care Provider [phone] Encounter Details Date Type Department Care Team (Late st Contact Info) Description 06/26/2017 Procedure Pass [facility] 70 [place] [address] Social History Tobacco Use Types Packs/Day Years [...] documented as of this encounter Care Teams Wire Weaving Loom Setter Relationship Specialty Start Date End Date Kaina Oquendo MD 360 [facility] 9 [place] [address] PCP - General Family Medicine 05/13/17 12/26/17 Kiana Oquendo MD [address] [address] PCP - General Family Medicine 12/27/17 06/17/23 Ronny Lan MD [address] [place] [address] [place] [address] PCP - General Internal Medicine 06/18/23 Kiana Oquendo MD [address] [address] Historical LMR Provider 11/06/18 2 Kendall Sprague MD 500 [place] [address] [email or web address] LMR Provider 11/06/18 documented as of this encounter Additional Source Comments The information contained in this document represents components of the legal health record. It is not the complete legal health record.[facility]
--- OUTSIDE RECORDS SUMMARY | 2025-07-05 17:00 | XMS_ITS | Encounter Summary ---
Author Organization [facility] Address [address] [facility] [address] [place] [address] Phone Care Team Providers Care Machine Installer Name Role Phone Kiana Oquendo MD Primary Care Provider Kiana Oquendo MD Primary Care Provider Kiana Oquendo MD Unavailable [phone] Kendall Sprague MD Unavailable [phone] Ronny Lan MD Primary Care Provider [phone] Encounter Details Date Type Department Care Team (Late st Contact Info) Description 06/26/2017 Procedure Pass [facility] 70 [place] [address] Social History Tobacco Use Types Packs/Day Years [...] documented as of this encounter Care Teams Machine Installer Relationship Specialty Start Date End Date Kiana Oqunedo MD 360 [facility] 9 [place] [address] PCP - General Family Medicine 05/13/17 12/26/17 Kiana Oquendo MD [address] [address] PCP - General Family Medicine 12/27/17 06/17/23 Ronny Lan MD [address] [place] [address] [place] [address] PCP - General Internal Medicine 06/18/23 Kiana Oquendo MD [address] [address] Historical LMR Provider 11/06/18 2 Kendall Sprague MD 500 [place] [address] [email or web address] Historical LMR Provider 11/06/18 documented as of this encounter Additional Source Comments The information contained in this document represents components of the legal health record. It is not the complete legal health record.[facility]
--- OUTSIDE RECORDS SUMMARY | 2025-07-05 17:00 | XMS_ITS | Encounter Summary ---
Author Organization [facility] Address [address] [facility] [address] [place] [address] Phone Care Team Providers Care Pharmacy Benefit Manager Name Role Phone Kiana Oquendo MD Primary Care Provider Kiana Oquendo MD Unavailable [phone] Kendall Sprague MD Unavailable [phone] Ronny Lan MD Primary Care Provider [phone] Encounter Details Date Type Department Care Team (Latest Contact Info) Description 05/21/2018 Transcribe Orders [facility] Vein Center [address] [place] [address] Justus Mitchell [address] [place] [address] [email or web address] Symptomatic varicose veins of left lower [...] Center Ultrasound (05/21/2018 9:25 AM EDT) Narrative [facility] - 05/21/2018 9:25 AM EDT [...] documented as of this encounter Care Teams Pharmacy Benefit Manager Relationship Specialty Start Date End Date Kiana Oquendo MD [address] [address] PCP - General Family Medicine 12/27/17 06/17/23 Ronny Lan MD [address] [place] [address] [place] [address] PCP - General Internal Medicine 06/18/23 Kiana Oquendo MD [address] [place] [address] Historical LMR Provider 11/06/18 2 Kendall Sprague MD [address] [place] [address] [email or web address] LMR Provider 11/06/18 documented as of this encounter Additional Source Comments The information contained in this document represents components of the legal health record. It is not the complete legal health record.[facility]
--- OUTSIDE RECORDS SUMMARY | 2025-07-05 17:01 | XMS_ITS | Encounter Summary ---
Author Organization [facility] Address [address] [facility] [address] [place] [address] Phone Care Team Providers Care Surgical Attendant Name Role Phone Kiana Oquendo MD Primary Care Provider Kiana Oquendo MD Unavailable [phone] Kendall Sprague MD Unavailable [phone] Ronny Lan MD Primary Care Provider [phone] Encounter Details Date Type Department Care Team (Latest Contact Info) Description 05/08/2018 Transcribe Orders [facility] Vein Center [address] [place] [address] Justus Mitchell [address] [place] [address] [email or web address] Symptomatic varicose veins of left [...] Center Ultrasound (05/08/2018 7:55 AM EDT) Narrative [facility] - 05/08/2018 7:55 AM EDT This [...] documented as of this encounter Care Teams Surgical Attendant Relationship Specialty Start Date End Date Kiana Oquendo MD [address] [address] PCP - General Family Medicine 12/27/17 06/17/23 Ronny Lan MD [address] [place] [address] [place] [address] PCP - General Internal Medicine 06/18/23 Kiana Oquendo MD [address] [place] [address] Historical LMR Provider 11/06/18 2 Kendall Sprague MD [address] [place] [address] [email or web address] Historical LMR Provider 11/06/18 documented as of this encounter Additional Source Comments The information contained in this document represents components of the legal health record. It is not the complete legal health record.[facility]
--- OUTSIDE RECORDS SUMMARY | 2025-07-05 17:01 | XMS_ITS | Encounter Summary ---
Author Organization [facility] Address [address] [facility] [address] [place] [address] Phone Care Team Providers Care Charter School Executive Director Name Role Phone Ronny Lan MD Primary Care Provider [phone] Encounter Details Date Type Department Care Team (Late st Contact Info) Description 08/26/2023 Procedure Pass OR Admitting Dept - Virtual Department [address] [place] [address] Social History Tobacco Use Types Packs/Day Years [...] documented as of this encounter Care Teams Charter School Executive Director Relationship Specialty Start Date End Date Ronny Lan MD [address] [place] [address] Dr [address] [place] [address] PCP - General Internal Medicine 06/18/23 documented as of this encounter Additional Source Comments The information contained in this document represents components of the legal health record. It is not the complete legal health record.[facility]
--- OUTSIDE RECORDS SUMMARY | 2025-07-05 17:01 | XMS_ITS | Encounter Summary ---
Author Organization [facility] Address [address] [facility] [address] [place] [address] Phone Care Team Providers Care Public Relations Account Executive Name Role Phone Kiana Oquendo MD Primary Care Provider Kiana Oquendo MD Unavailable [phone] Kendall Sprague MD Unavailable [phone] Ronny Lan MD Primary Care Provider + [phone] Encounter Details Date Type Department Care Team (Latest Contact Info) Description 04/03/2018 Transcribe Orders [facility] Vein Center [place] [address] [place] [address] Xuan Grimes MD [address] [place] [address] [email or web address] Varicose veins of left lower [...] Center Ultrasound (04/03/2018 9:00 AM EDT) Narrative [facility] - 04/03/2018 9:00 AM EDT This study [...] documented as of this encounter Care Teams Public Relations Account Executive Relationship Specialty Start Date End Date Kiana Oquendo MD [address] [address] PCP - General Family Medicine 12/27/17 06/17/23 Ronny Lan MD [address] [place] [address] [place] [address] PCP - General Internal Medicine 06/18/23 Kiana Oquendo MD [address] [place] [address] Historical LMR Provider 11/06/18 2 Kendall Sprague MD 500 [place] [address] [email or web address] Historical LMR Provider 11/06/18 documented as of this encounter Additional Source Comments The information contained in this document represents components of the legal health record. It is not the complete legal health record.[facility]
--- OUTSIDE RECORDS SUMMARY | 2025-07-05 17:01 | XMS_ITS | Encounter Summary ---
Author Organization [facility] Address [address] [facility] [address] [place] [address] Phone Care Team Providers Care Academic Dean Name Role Phone Kiana Oquendo MD Primary Care Provider Kiana Oquendo MD Unavailable [phone] Kendall Sprague MD Unavailable [phone] Ronny Lan MD Primary Care Provider + [phone] Encounter Details Date Type Department Care Team (Latest Contact Info) Description 04/17/2018 Transcribe Orders [facility] Vein Center [place] [address] [place] [address] Xuan Grimes MD [address] [place] [address] [email or web address] Varicose veins of right lower extremity with [...] Center Ultrasound (04/17/2018 7:56 AM EDT) Narrative [facility] - 04/17/2018 7:56 AM EDT This [...] documented as of this encounter Care Teams Academic Dean Relationship Specialty Start Date End Date Kiana Oquendo MD [address] [address] PCP - General Family Medicine 12/27/17 06/17/23 Ronny Lan MD [address] [place] [address] [place] [address] PCP - General Internal Medicine 06/18/23 Kiana Oquendo MD [address] [address] Historical LMR Provider 11/06/18 2 Kendall Sprague MD 500 [place] [address] [email or web address] Historical LMR Provider 11/06/18 documented as of this encounter Additional Source Comments The information contained in this document represents components of the legal health record. It is not the complete legal health record.[facility]
== END 2025-07-05 15:35 | disposition home or self-care (01) ==
LOC: HO.HWS 14:58
PROVIDERS: PCP Internal Medicine; Visit Provider Obstetrics & Gynecology
DX: Z01.419 Encounter for gynecological examination (general) (routine) without abnormal findings (principal)
CPT/HCPCS: 99396; 99459

== ENCOUNTER 2025-07-05 14:58 | Outpatient (REF) | payer OTHER, SELFPAY | END 2025-07-05 14:59 | disposition home or self-care (01) | LOC: HO.LNP 14:58 | PROVIDERS: PCP Internal Medicine; Visit Provider Obstetrics & Gynecology | DX: Z01.419 Encounter for gynecological examination (general) (routine) without abnormal findings (principal); Z12.31 Encounter for screening mammogram for malignant neoplasm of breast; N87.1 Moderate cervical dysplasia; R87.810 Cervical high risk human papillomavirus (HPV) DNA test positive | CPT/HCPCS: 87626; 88175; 99396 ==

== ENCOUNTER 2025-07-22 16:26 | Outpatient (AMB) | payer OTHER, SELFPAY ==
--- NOTE | 2025-07-22 16:29 | A.OFFVIS_ITS ---
Vital Signs 07/22/25 16:34 Height 5 ft 1 in Weight 163 lb BMI 30.8 BP 138/84 Blood Pressure Location Rt brachial Position Sitting Pulse 60 Pulse Source Pulse Oximeter Pulse Oximetry (%) 100 Oxygen Delivery Method Room Air Intake Visit Reasons: 3m Intake Note: ESTABLISHED PATIENT for mgmt of IBS, GERD, and abd pain. CC; C.O. severe reflux and epigastric pain despite current PPI therapy. Pt states that it is worst at night but does bother them during the day as well. Pan Reclaim Processor Required: No Accompanied by: Self / Same As Patient Allergies No Known Allergies (No Known Allergies*) Allergy (Verified 07/22/25 16:29) HPI HPI 3m: Details: LAST VISIT: GERD without esophagitis Exocrine pancreatic insufficiency Abdominal pain Constipation Postprandial abdominal bloating Plan Will change PPI to pantoprazole 40 mg daily. Avoid dietary triggers like that snacking. Will check vitamin B12, folate, vitamin a and vitamin K. Patient will start taking vitamin-D low levels found before. Currently patient is not taking any supplements. Continue taking regimen for bowel movements (MiraLax and senna). Increase fluid intake and activity to promote better bowel motility. Fo llow-up in 3 months, sooner on as needed basis. She is agreeable to this plan and verbalizes understanding of instructions. She was given the opportunity to ask questions and all questions answered. ? Thank you for allowing me to participate in her care Orders Vitamin B12 and Folate Today R19.7 Vitamin A Today K86.89 Vitamin K1 Today R10.9 New pantoprazole take one tablet half an hour before breakfast 40 mg PO DAILY 30 tabs 3RF K21.9 cholecalciferol (vitamin D3) 50 mcg PO DAILY 90 caps 3RF R79.89 Discontinued esomeprazole magnesium (Nexium) Discontinued Reason: Doctor's Order 20 mg PO DAILY 30 caps 4RF TODAY'S VISIT Patient is here today for follow-up. Patient reports that she has been doing well for the most part, however occasionally she will still have epigastric pain and left upper quadrant pain and bloating. Patient reports that she has postprandial epigastric burning worse later in the afternoon. Patient denies any nausea or vomiting. Reports that she is moving her bowels better when she is using senna and MiraLax. Denies melena, hematochezia, unintentional weight loss or ribbon like stools. Patient denies dyspepsia, dysphagia or odynophagia. [facility] Medical History Vitamin D deficiency Obesity (BMI 30-39.9) Constipation GERD without esophagitis Gastritis Asthma Overweight (BMI 25.0-29.9) ZHOU positive Varicose veins of bilateral lower extremities with pain Surgical History History of loop electrical excision procedure (LEEP) History of esophagogastroduodenoscopy (EGD) Hx of colonoscopy Hx of laparoscopy Status post laser ablation of incompetent vein H/O tubal ligation Hx of cholecystectomy (~2014) H/O gastric bypass (~2017) Family History Father HTN (hypertension) Diabetes mellitus Mother HTN (hypertension) Diabetes mellitus Asthma Brother No problems noted. Brother No problems noted. Brother No problems noted. Brother No problems noted. Sister No problems noted. Daughter No problems noted. Son No problems noted. Son No problems noted. Paternal Aunt Breast cancer Family/Other Colon cancer Maternal Aunt Ovarian cancer Social History Household Members: Family Housing: House Are you a primary day care attendant to a significant other at home: No Do you presently have visiting nurse or other home services: No Alcohol intake: former Patient Tobacco Use Status: Never used Tobacco e-Cigarette/Vaping Use: Never Used Second Hand Smoke Exposure: No service: No Current occupational status: employed Cognitive needs: No Hearing needs: No Vision needs: Yes (Glasses) Female Reproductive History Menstrual Age of Menarche: 14 Physical Exam Vital Signs: Last Vital Signs Pulse 60 07/22/25 16:34 BP 138/84 07/22/25 16:34 Pulse Ox 100 07/22/25 16:34 Oxygen Delivery Method Room Air 07/22/25 16:34 BMI result Body Mass Index 30.8 Assessment & Plan Assessment & Plan (1) GERD without esophagitis: Code(s): K21.9 - Gastro-esophageal reflux disease without esophagitis Category: Medical (2) Gastritis: Code(s): K29.70 - Gastritis, unspecified, without bleeding Category: Medical Qualifiers: Gastritis type: superficial Chronicity: chronic Gastritis bleeding: without bleeding Qualified Code(s): K29.30 - Chronic superficial gastritis without bleeding (3) Exocrine pancreatic insufficiency: Code(s): K86.81 - Exocrine pancreatic insufficiency Category: Medical (4) Constipation: Code(s): K59.00 - Constipation, unspecified Category: Medical Qualifiers: Constipation type: unspecified constipation type Qualified Code(s): K59.00 - Constipation, unspecified Plan Patient will continue current therapy with pantoprazole. Avoid dietary triggers only done snacking. Will check transglutaminase, vitamin-D, lipase. Avoid dietary triggers and late night snacking. Staying upright for minimum 3 hours after meals discussed with patient. Patient will follow-up in the office in 4 months, sooner on as needed basis. She is agreeable to this plan and verbalizes understanding of instructions. She was given the opportunity to ask questions and all questions answered. Thank you for allowing me to participate in her care Orders: Orders Transglutaminase IgA 07/23/25 R10.9 - Unspecified abdominal pain Vitamin D 25-OH (D2 and D3) 07/23/25 E55.9 - Vitamin D deficiency, unspecified Lipase 07/23/25 R10.9 - Unspecified abdominal pain Referrals Endocrinology Referral E16.1 - Other hypoglycemia Coding Level of Care Code Est Pt Level 4 (42407) Complex EM visit Add On G2211 Diagnoses GERD without esophagitis K21.9 Chronic superficial gastritis without bleeding K29.30 Gastritis type: superficial Chronicity: chronic Gastritis bleeding: without bleeding Exocrine pancreatic insufficiency K86.81 Constipation, unspecified constipation type K59.00 Constipation type: unspecified constipation type Time Spent (min) 35 Comment 25 minutes spent with patient and additional 10 minutes spent reviewing her records
[2025-07-22 16:34] VITALS: BP 138/84; PULSE 60; O2SAT 100; BMI 30.8
--- OUTSIDE RECORDS SUMMARY | 2025-07-22 19:44 | XMS_ITS | Encounter Summary ---
Author Organization [facility] Address [address] [facility] [address] [place] [address] Phone Care Team Providers Care Entry Level Manager Name Role Phone Kiana Oquendo MD Primary Care Provider Kiana Oquendo MD Unavailable [phone] Kendall Sprague MD Unavailable [phone] Ronny Lan MD Primary Care Provider + [phone] Encounter Details Date Type Department Care Team (Latest Contact Info) Description 04/03/2018 Transcribe Orders [facility] Vein Center [place] [address] [place] [address] [place] [address] Xuan Grimes MD [address] [place] [address] [email or web address] Varicose veins of left lower [...] Center Ultrasound (04/03/2018 9:00 AM EDT) Narrative PAN_[facility] - 04/03/2018 9:00 AM EDT This [...] documented as of this encounter Care Teams Entry Level Manager Relationship Specialty Start Date End Date Kiana Oquendo MD [address] [address] PCP - General Family Medicine 12/27/17 06/17/23 Ronny Lan MD [address] [place] [address] [place] [address] PCP - General Internal Medicine 06/18/23 Kiana Oquendo MD [address] [place] [address] Historical LMR Provider 11/06/18 2 Kendall Sprague MD [address] [place] [address] [email or web address] Historical LMR Provider 11/06/18 documented as of this encounter Additional Source Comments The information contained in this document represents components of the legal health record. It is not the complete legal health record.[facility]
--- OUTSIDE RECORDS SUMMARY | 2025-07-22 19:44 | XMS_ITS | Encounter Summary ---
Author Organization [facility] Address [address] [facility] [address] [place] [address] Phone Care Team Providers Care Explosive Operator Fuse Name Role Phone Ronny Lan MD Primary Care Provider [phone] Encounter Details Date Type Department Care Team (Late st Contact Info) Description 08/26/2023 Procedure Pass OR Admitting Dept - Virtual Department 30 [place] [address] Social History Tobacco Use Types Packs/Day Years [...] documented as of this encounter Care Teams Explosive Operator Fuse Relationship Specialty Start Date End Date Ronny Lan MD [address] [place] [address] Dr [address] [place] [address] PCP - General Internal Medicine 06/18/23 documented as of this encounter Additional Source Comments The information contained in this document represents components of the legal health record. It is not the complete legal health record.[facility]
--- OUTSIDE RECORDS SUMMARY | 2025-07-22 19:44 | XMS_ITS | Encounter Summary ---
Author Organization [facility] Address [address] [facility] [address] [place] [address] Phone Care Team Providers Care Wind Tunnel Engineer Name Role Phone Kiana Oquendo MD Primary Care Provider Kiana Oquendo MD Primary Care Provider Kiana Oquendo MD Unavailable [phone] Kendall Sprague MD Unavailable [phone] Ronny Lan MD Primary Care Provider [phone] Encounter Details Date Type Department Care Team (Late st Contact Info) Description 06/26/2017 Procedure Pass [facility] [address] [place] [address] Social History Tobacco Use Types Packs/Day Years [...] documented as of this encounter Care Teams Wind Tunnel Engineer Relationship Specialty Start Date End Date Kiana Oquendo MD 360 [facility] 9 [place] [address] PCP - General Family Medicine 05/13/17 12/26/17 Kiana Oquendo MD [address] [address] PCP - General Family Medicine 12/27/17 06/17/23 Ronny Lan MD [address] [place] [address] [place] [address] PCP - General Internal Medicine 06/18/23 Kiana Oquendo MD [address] [address] Historical LMR Provider 11/06/18 2 Kendall Sprague MD 500 [place] [address] [email or web address] Historical LMR Provider 11/06/18 documented as of this encounter Additional Source Comments The information contained in this document represents components of the legal health record. It is not the complete legal health record.[facility]
--- OUTSIDE RECORDS SUMMARY | 2025-07-22 19:44 | XMS_ITS | Patient Health Record ---
Author Organization [facility] Address [address] [address] Care Team Providers Care Hood Fitter Name Role Phone Kiana Hillman MD Primary Care Provider Unavailable Zacarias Mayorga Unavailable [phone] Reason For Referral No Information Medications Medication SIG (Take, Route, Frequency, Duration) Notes Start Date End Date Status metFORMIN HCl 500 MG 1 tablet with meals Orally Twice a day Active Vitamin D (Ergocalciferol) 06878 UNIT 1 capsule Orally Active traZODone HCl [...] due to varicose veins of left leg ([id number]) Varicose veins of left lower extremities with pain (I83.812) Active confirmed Plan Of Treatment No Information Insurance Providers Payer Name Payer Address Payer Phone Subscriber Number Group Number Insured Name Patient Relationship to Insured Coverage Start Date Coverage End Date Medicaid [address] [place] [address] [phone] [id number] Linnette Dunne Self - patient is the insured Medical (General) History Medical History History ICD Code 1. Varicose Veins 2. Lupus; lab diagnosed 3. Claudication 4. Hypertension 5. Asthma 6. Gastro_Esophageal Reflux Disease 7. Non Smoker
--- OUTSIDE RECORDS SUMMARY | 2025-07-22 19:44 | XMS_ITS | Encounter Summary ---
Author Organization [facility] Address [address] [facility] [address] [place] [address] Phone Care Team Providers Care Internal Grinder Name Role Phone Kiana Oquendo MD Primary Care Provider Kiana Oquendo MD Primary Care Provider Kiana Oquendo MD Unavailable [phone] Kendall Sprague MD Unavailable [phone] Ronny Lan MD Primary Care Provider [phone] Encounter Details Date Type Department Care Team (Late st Contact Info) Description 06/26/2017 Procedure Pass [facility] [address] [place] [address] Social History Tobacco Use Types Packs/Day Years [...] documented as of this encounter Care Teams Internal Grinder Relationship Specialty Start Date End Date Kiana Oquendo MD 360 [facility] 9 [place] [address] PCP - General Family Medicine 05/13/17 12/26/17 Kiana Oquendo MD [address] [address] PCP - General Family Medicine 12/27/17 06/17/23 Ronny Lan MD [address] [place] [address] [place] [address] PCP - General Internal Medicine 06/18/23 Kiana Oquendo MD [address] [address] Historical LMR Provider 11/06/18 2 Kendall Sprague MD 500 [place] [address] [email or web address] Historical LMR Provider 11/06/18 documented as of this encounter Additional Source Comments The information contained in this document represents components of the legal health record. It is not the complete legal health record.[facility]
--- OUTSIDE RECORDS SUMMARY | 2025-07-22 19:44 | XMS_ITS | Encounter Summary ---
Author Organization [facility] Address 399 [facility] [address] [place] [address] Phone Care Team Providers Care Neon Tube Pumper Name Role Phone Kiana Oquendo MD Primary Care Provider Kiana Oquendo MD Unavailable [phone] Kendall Sprague MD Unavailable [phone] Ronny Lan MD Primary Care Provider + [phone] Encounter Details Date Type Department Care Team (Latest Contact Info) Description 05/08/2018 Transcribe Orders [facility] Vein Center [address] [place] [address] Justus Mitchell [address] [place] [address] [email or web address] Symptomatic varicose veins of left [...] Center Ultrasound (05/08/2018 7:55 AM EDT) Narrative PAN_[facility] - 05/08/2018 7:55 AM EDT [...] documented as of this encounter Care Teams Neon Tube Pumper Relationship Specialty Start Date End Date Kiana Oquendo MD [address] [address] PCP - General Family Medicine 12/27/17 06/17/23 Ronny Lan MD [address] [place] [address] [place] [address] PCP - General Internal Medicine 06/18/23 Kiana Oquendo MD [address] [place] [address] Historical LMR Provider 11/06/18 2 Kendall Sprague MD [address] [place] [address] [email or web address] Historical LMR Provider 11/06/18 documented as of this encounter Additional Source Comments The information contained in this document represents components of the legal health record. It is not the complete legal health record.[facility]
--- OUTSIDE RECORDS SUMMARY | 2025-07-22 19:44 | XMS_ITS | Clinical Summary ---
Author Organization [facility] Address [address] [facility] [address] [place] [address] Phone Care Team Providers Care Clay Dry Press Operator Name Role Phone Ronny Lan MD Primary Care Provider [phone] Allergies No known active allergies Medications VENTOLIN [...] PRESSURE 02/12/2024 08/14/2023 INFLUENZA VACCINE (#1) 2025 3, 08/16/2022, 08/11/2021, Additional history exists COVID-19 VACCINE ( - 2024- season) 2025 09/13/2021, 08/23/2021 Adult Td,Tdap Booster 12/09/2029 12/10/2019 RSV VACCINE (1 - 1-dose 75+ series) 2047 SMOKING STATUS SCREENING (Once After 26 Yrs) [...] topic Medical Devices Not on file Insurance [facility] NON NSPG PCP [place] [facility] NON NSPG PCP [place] [facility] [employer] NON NSPG PCP [place] [employer] NON NSPG PCP S[place] [employer] [employer] NON NSPG PCP [place] [facility] NON NSPG [facility] Advance Directives For more information, please contact: [phone] (9AM - 5PM [place], Saturday-Saturday) * Full Code (Latest Code Status on File) Date Activated Date Inactivated Comments 08/26/2023 7:11 AM Question Answer Comments Code Status Confirmed With: Patient Care Teams Clay Dry Press Operator Relationship Specialty Start Date End Date Ronny Lan MD [address] [place] [address] [place] [address] PCP - General Internal Medicine 06/18/23 Additional Source Comments The information contained in this document represents components of the legal health record. It is not the complete legal health record.[facility]
--- OUTSIDE RECORDS SUMMARY | 2025-07-22 19:44 | XMS_ITS | Encounter Summary ---
Author Organization [facility] Address [address] [place] [address] Phone Care Team Providers Care Rn Compliance Name Role Phone Kiana Oquendo MD Primary Care Provider Kiana Oquendo MD Primary Care Provider Kiana Oquendo MD Unavailable [phone] Kendall Sprague MD Unavailable [phone] Ronny Lan MD Primary Care Provider [phone] Encounter Details Date Type Department Care Team (Late st Contact Info) Description 07/10/2017 Ancillary Orders [facility] Cardiovascular Clinic [address] [place] [address] Terence Santos MD [address] Nicki Guerrero [address] [address] Chest pain, unspecified type Social History Tobacco [...] 230/112 mm Hg at peak exercise (RPP: 14024). Oxygen saturation remained unchanged at 99% during [...] systolic function. Stress ECG tracings available from [facility] [employer]. Thank you for referring this [...] to 230/112 mmHg at peak exercise (RPP: 81839). Oxygen saturation remained unchangedat 99% during exercise. [...] systolic function. Stress ECG tracings available from [facility] [employer]. Thank you for referring this [...] documented as of this encounter Care Teams Rn Compliance Relationship Specialty Start Date End Date Kiana Oquendo MD [address] [address] PCP - General Family Medicine 05/13/17 12/26/17 Kiana Oquendo MD [address] [place] [address] PCP - General Family Medicine 12/27/17 06/17/23 Ronny Lan MD [address] [place] [address] [place] [address] PCP - General Internal Medicine 06/18/23 Kiana Oquendo MD [address] [address] Historical LMR Provider 11/06/18 2 Kendall Sprague MD [address] [place] [address] [email or web address] Historical LMR Provider 11/06/18 documented as of this encounter Additional Source Comments The information contained in this document represents components of the legal health record. It is not the complete legal health record.[facility]
--- OUTSIDE RECORDS SUMMARY | 2025-07-22 19:44 | XMS_ITS | Encounter Summary ---
Author Organization [facility] Address [address] [facility] [address] [place] [address] Phone Care Team Providers Care Sports Betting Manager Name Role Phone Kiana Oquendo MD Primary Care Provider Kiana Oquendo MD Unavailable [phone] Kendall Sprague MD Unavailable [phone] Ronny Lan MD Primary Care Provider + [phone] Encounter Details Date Type Department Care Team (Latest Contact Info) Description 05/21/2018 Transcribe Orders [facility] Vein Center [address] [place] [address] Justus Mitchell [address] [place] [address] [email or web address] Symptomatic varicose veins of left lower extremity [...] Center Ultrasound (05/21/2018 9:25 AM EDT) Narrative [facility] - 05/21/2018 9:25 AM EDT This [...] documented as of this encounter Care Teams Sports Betting Manager Relationship Specialty Start Date End Date Kiana Oquendo MD [address] [address] PCP - General Family Medicine 12/27/17 06/17/23 Ronny Lan MD [address] [place] [address] [place] [address] PCP - General Internal Medicine 06/18/23 Kiana Oquendo MD [address] [place] [address] Historical LMR Provider 11/06/18 2 Kendall Sprague MD [address] [place] [address] [email or web address] LMR Provider 11/06/18 documented as of this encounter Additional Source Comments The information contained in this document represents components of the legal health record. It is not the complete legal health record.[facility]
--- OUTSIDE RECORDS SUMMARY | 2025-07-22 19:44 | XMS_ITS | Encounter Summary ---
Author Organization [facility] Address [address] [facility] [address] [place] [address] Phone Care Team Providers Care Cake Washer Name Role Phone Kiana Oquendo MD Primary Care Provider Kiana Oquendo MD Unavailable [phone] Kendall Sprague MD Unavailable [phone] Ronny Lan MD Primary Care Provider + [phone] Encounter Details Date Type Department Care Team (Latest Contact Info) Description 04/17/2018 Transcribe Orders [facility] Vein Center [place] [address]nd [place] [address] Xuan Grimes MD [address] [place] [address] [email or web address] Varicose veins of right [...] Center Ultrasound (04/17/2018 7:56 AM EDT) Narrative [facility] - 04/17/2018 7:56 AM EDT This [...] documented as of this encounter Care Teams Cake Washer Relationship Specialty Start Date End Date Kiana Oquendo MD [address] [address] PCP - General Family Medicine 12/27/17 06/17/23 Ronny Lan MD [address] [place] [address] [place] [address] PCP - General Internal Medicine 06/18/23 Kiana Oquendo MD [address] [address] Historical LMR Provider 11/06/18 2 Kendall Sprague MD 500 [place] [address] [email or web address] LMR Provider 11/06/18 documented as of this encounter Additional Source Comments The information contained in this document represents components of the legal health record. It is not the complete legal health record.[facility]
== END 2025-07-22 17:10 | disposition home or self-care (01) ==
LOC: HO.HGI 16:27
PROVIDERS: PCP Internal Medicine; Visit Provider Nurse Practitioner Family
DX: K21.9 Gastro-esophageal reflux disease without esophagitis (principal); K29.30 Chronic superficial gastritis without bleeding; K86.81 Exocrine pancreatic insufficiency; K59.00 Constipation, unspecified
CPT/HCPCS: 99214

== ENCOUNTER → 2025-07-22 16:26 | Outpatient (BNVA) | payer OTHER, SELFPAY | PROVIDERS: PCP Internal Medicine; Visit Provider Nurse Practitioner Family | DX: K21.9 Gastro-esophageal reflux disease without esophagitis (principal); K29.30 Chronic superficial gastritis without bleeding; K86.81 Exocrine pancreatic insufficiency; K59.00 Constipation, unspecified | CPT/HCPCS: 99212 ==

== ENCOUNTER 2025-07-23 15:05 | Outpatient (REF) | payer OTHER, SELFPAY ==
[2025-07-23 16:50] LABS: Lipase 40 U/L (8-78)
--- OUTSIDE RECORDS SUMMARY | 2025-07-23 17:32 | XMS_ITS | Encounter Summary ---
Author Organization [facility] Address [address] [facility] [address] [place] [address] Phone Care Team Providers Care Calculation Clerk Name Role Phone Kiana Oquendo MD Primary Care Provider Kiana Oquendo MD Primary Care Provider Kiana Oquendo MD Unavailable [phone] Kendall Sprague MD Unavailable [phone] Ronny Lan MD Primary Care Provider [phone] Encounter Details Date Type Department Care Team (Late st Contact Info) Description 06/26/2017 Procedure Pass [facility] [address] [place] [address] Social History Tobacco Use Types Packs/Day Years [...] documented as of this encounter Care Teams Calculation Clerk Relationship Specialty Start Date End Date Kiana Oquendo MD 360 [facility] 9 [place] [address] PCP - General Family Medicine 05/13/17 12/26/17 Kiana Oquendo MD [address] [address] PCP - General Family Medicine 12/27/17 06/17/23 Ronny Lan MD [address] [place] [address] [place] [address] PCP - General Internal Medicine 06/18/23 Kiana Oquendo MD [address] [address] Historical LMR Provider 11/06/18 2 Kendall Sprague MD 500 [place] [address] [email or web address] LMR Provider 11/06/18 documented as of this encounter Additional Source Comments The information contained in this document represents components of the legal health record. It is not the complete legal health record.[facility]
--- OUTSIDE RECORDS SUMMARY | 2025-07-23 17:32 | XMS_ITS | Encounter Summary ---
Author Organization [facility] Address [address] [facility] [address] [place] [address] Phone Care Team Providers Care Sinker Puller Name Role Phone Kinaa Oquendo MD Primary Care Provider Kiana Oquendo MD Primary Care Provider Kiana Oquendo MD Unavailable [phone] Kendall Sprague MD Unavailable [phone] Ronny Lan MD Primary Care Provider [phone] Encounter Details Date Type Department Care Team (Late st Contact Info) Description 06/26/2017 Procedure Pass [facility] 70 [place] [address] Social History Tobacco Use Types Packs/Day Years [...] documented as of this encounter Care Teams Sinker Puller Relationship Specialty Start Date End Date Kiana Oquendo MD 360 [facility] 9 [place] [address] PCP - General Family Medicine 05/13/17 12/26/17 Kiana Oquendo MD [address] [address] PCP - General Family Medicine 12/27/17 06/17/23 Ronny Lan MD [address] [place] [address] [place] [address] PCP - General Internal Medicine 06/18/23 Kiana Oquendo MD [address] [address] Historical LMR Provider 11/06/18 2 Kendall Sprague MD 500 [place] [address] [email or web address] LMR Provider 11/06/18 documented as of this encounter Additional Source Comments The information contained in this document represents components of the legal health record. It is not the complete legal health record.[facility]
--- OUTSIDE RECORDS SUMMARY | 2025-07-23 17:33 | XMS_ITS | Patient Health Record ---
Author Organization [facility] Address [address] [address] Care Team Providers Care Information Technology Analyst Name Role Phone Kiana [place]man MD Primary Care Provider Unavailable Zacarias Mayorga Unavailable [phone] Reason For Referral No Information Medications Medication SIG (Take, Route, Frequency, Duration) Notes Start Date End Date Status metFORMIN HCl 500 MG 1 tablet with meals Orally Twice a day Active Vitamin D (Ergocalciferol) 68954 UNIT 1 capsule Orally Active traZODone HCl [...] due to varicose veins of left leg ([id number] 93529) Varicose veins of left lower extremities with pain (I83.812) Active confirmed Plan Of Treatment No Information Insurance Providers Payer Name Payer Address Payer Phone Subscriber Number Group Number Insured Name Patient Relationship to Insured Coverage Start Date Coverage End Date Medicaid [address] [place] [address] [id number] Linnette Dunne Self - patient is the insured Medical (General) History Medical History History ICD Code 1. Varicose Veins 2. Lupus; lab diagnosed 3. Claudication 4. Hypertension 5. Asthma 6. Gastro_Esophageal Reflux Disease 7. Non Smoker
--- OUTSIDE RECORDS SUMMARY | 2025-07-23 17:33 | XMS_ITS | Encounter Summary ---
Author Organization [facility] Address [address] [facility] [address] [place] [address] Phone Care Team Providers Care Customer Field Representative Name Role Phone Kiana Oquendo MD Primary Care Provider Kiana Oquendo MD Unavailable [phone] Kendall Sprague MD Unavailable [phone] Ronny Lan MD Primary Care Provider + [phone] Encounter Details Date Type Department Care Team (Latest Contact Info) Description 05/21/2018 Transcribe Orders [facility] Vein Center [address] [place] [address] Justus Mitchell [address] [place] [address] [email or web address] Symptomatic varicose veins of left lower [...] Center Ultrasound (05/21/2018 9:25 AM EDT) Narrative [facility] - 05/21/2018 9:25 AM EDT This [...] as of this encounter Care Teams Customer Field Representative Relationship Specialty Start Date End Date Kiana Oquendo MD [address] [address] PCP - General Family Medicine 12/27/17 06/17/23 Ronny Lan MD [address] [place] [address] [place] [address] PCP - General Internal Medicine 06/18/23 Kiana Oquendo MD [address] [place] [address] Historical LMR Provider 11/06/18 2 Kendall Sprague MD [address] [place] [address] [email or web address] Historical LMR Provider 11/06/18 documented as of this encounter Additional Source Comments The information contained in this document represents components of the legal health record. It is not the complete legal health record.[facility]
--- OUTSIDE RECORDS SUMMARY | 2025-07-23 17:33 | XMS_ITS | Encounter Summary ---
Author Organization [facility] Address [address] [place] [address] Phone Care Team Providers Care Medical Records Supervisor Name Role Phone Kiana Oquendo MD Primary Care Provider Kiana Oqeundo MD Primary Care Provider Kiana Oquendo MD Unavailable [phone] Kendall Sprague MD Unavailable [phone] Ronny Lan MD Primary Care Provider [phone] Encounter Details Date Type Department Care Team (Late st Contact Info) Description 07/10/2017 Ancillary Orders [facility] 70 [place] [address] Terence Santos MD [address] [address] Chest pain, unspecified type Social History Tobacco [...] 230/112 mm Hg at peak exercise (RPP: 25417). Oxygen saturation remained unchanged at 99% during [...] systolic function. Stress ECG tracings available from [facility] [employer]. Thank you for referring this [...] to 230/112 mmHg at peak exercise (RPP: 66585). Oxygen saturation remained unchangedat 99% during exercise. [...] systolic function. Stress ECG tracings available from [facility] [employer]. Thank you for referring this [...] documented as of this encounter Care Teams Medical Records Supervisor Relationship Specialty Start Date End Date Kiana Oquendo MD [address] [address] PCP - General Family Medicine 05/13/17 12/26/17 Kiana Oquendo MD [address] [place] [address] PCP - General Family Medicine 12/27/17 06/17/23 Ronny Lan MD [address] [place] [address] [place] [address] PCP - General Internal Medicine 06/18/23 Kiana Oquendo MD [address] [address] Historical LMR Provider 11/06/18 2 Kendall Sprague MD [address] [place] [address] [email or web address] LMR Provider 11/06/18 documented as of this encounter Additional Source Comments The information contained in this document represents components of the legal health record. It is not the complete legal health record.[facility]
--- OUTSIDE RECORDS SUMMARY | 2025-07-23 17:34 | XMS_ITS | Encounter Summary ---
Author Organization [facility] Address [address] [facility] [address] [place] [address] Phone Care Team Providers Care Maintenance Inspector Name Role Phone Kiana Oquendo MD Primary Care Provider Kiana Oquendo MD Unavailable [phone] Kendall Sprague MD Unavailable [phone] Ronny Lan MD Primary Care Provider + [phone] Encounter Details Date Type Department Care Team (Latest Contact Info) Description 04/17/2018 Transcribe Orders [facility] Vein Center [place] [address] [address]nd [place] [address] Xuan Grimes MD [address] [place] [address] [email or web address] Varicose veins of right lower [...] Center Ultrasound (04/17/2018 7:56 AM EDT) Narrative [facility] - 04/17/2018 7:56 AM EDT This study [...] documented as of this encounter Care Teams Maintenance Inspector Relationship Specialty Start Date End Date Kiana Oquendo MD [address] [address] PCP - General Family Medicine 12/27/17 06/17/23 Ronny Lan MD [address] [place] [address] [place] [address] PCP - General Internal Medicine 06/18/23 Kiana Oquendo MD [address] [address] Historical LMR Provider 11/06/18 2 Kendall Sprague MD 500 [place] [address] [email or web address] LMR Provider 11/06/18 documented as of this encounter Additional Source Comments The information contained in this document represents components of the legal health record. It is not the complete legal health record.[facility]
--- OUTSIDE RECORDS SUMMARY | 2025-07-23 17:34 | XMS_ITS | Encounter Summary ---
Author Organization [facility] Address 399 [facility] [address] [place] [address] Phone Care Team Providers Care Administrative Personal Assistant Name Role Phone Kiana Oquendo MD Primary Care Provider Kiana Oquendo MD Unavailable [phone] Kendall Sprague MD Unavailable [phone] Ronny Lan MD Primary Care Provider + [phone] Encounter Details Date Type Department Care Team (Latest Contact Info) Description 05/08/2018 Transcribe Orders [facility] Vein Center [address] [place] [address] Justus Mitchell [address] [place] [address] [email or web address] Symptomatic varicose veins of left lower extremity [...] Center Ultrasound (05/08/2018 7:55 AM EDT) Narrative [facility] - 05/08/2018 7:55 AM EDT This [...] documented as of this encounter Care Teams Administrative Personal Assistant Relationship Specialty Start Date End Date Kiana Oquendo MD [address] [address] PCP - General Family Medicine 12/27/17 06/17/23 Ronny Lan MD [address] [place] [address] [place] [address] PCP - General Internal Medicine 06/18/23 Kiana Oquendo MD [address] [place] [address] Historical LMR Provider 11/06/18 2 Kendall Sprague MD [address] [place] [address] [email or web address] LMR Provider 11/06/18 documented as of this encounter Additional Source Comments The information contained in this document represents components of the legal health record. It is not the complete legal health record.[facility]
--- OUTSIDE RECORDS SUMMARY | 2025-07-23 17:34 | XMS_ITS | Encounter Summary ---
Author Organization [facility] Address [address] [facility] [address] [place] [address] Phone Care Team Providers Care Dough Cutting Machine Operator Name Role Phone Kiana Oquendo MD Primary Care Provider Kiana Oquendo MD Unavailable [phone] Kendall Sprague MD Unavailable [phone] Ronny Lan MD Primary Care Provider + [phone] Encounter Details Date Type Department Care Team (Latest Contact Info) Description 04/03/2018 Transcribe Orders [facility] Vein Center [place] [address] [address] [place] [address] Xuan Grimes MD [address] [place] [address] [email or web address] Varicose veins of left lower extremity with [...] Center Ultrasound (04/03/2018 9:00 AM EDT) Narrative [facility] - 04/03/2018 9:00 AM EDT This [...] documented as of this encounter Care Teams Dough Cutting Machine Operator Relationship Specialty Start Date End Date Kiana Oquendo MD [address] [address] PCP - General Family Medicine 12/27/17 06/17/23 Ronny Lan MD [address] [place] [address] [place] [address] PCP - General Internal Medicine 06/18/23 Kiana Oquendo MD [address] [place] [address] Historical LMR Provider 11/06/18 2 Kendall Sprague MD 500 [place] [address] [email or web address] LMR Provider 11/06/18 documented as of this encounter Additional Source Comments The information contained in this document represents components of the legal health record. It is not the complete legal health record.[facility]
--- OUTSIDE RECORDS SUMMARY | 2025-07-23 17:34 | XMS_ITS | Clinical Summary ---
Author Organization [facility] Address [address] [facility] [address] [place] [address] Phone Care Team Providers Care Gleason Gear Generator Name Role Phone Ronny Lan MD Primary Care Provider [phone] Allergies No known active allergies Medications VENTOLIN [...] on file Insurance [facility] NON NSPG PCP [place] [facility] NON NSPG PCP [place] [facility] [employer] NON NSPG PCP [place] [facility] [employer] NON NSPG PCP S[place] [facility] [employer] NON NSPG PCP [place] [facility] NON NSPG [facility]CP [place] [facility] Advance Directives For more information, please contact: [phone] (9AM - 5PM [place], Saturday-Saturday) * Full Code (Latest Code Status on File) Date Activated Date Inactivated Comments 08/26/2023 7:11 AM Question Answer Comments Code Status Confirmed With: Patient Care Teams Gleason Gear Generator Relationship Specialty Start Date End Date Ronny Lan MD [address] [place] [address] [place] [address] PCP - General Internal Medicine 06/18/23 Additional Source Comments The information contained in this document represents components of the legal health record. It is not the complete legal health record.[facility]
--- OUTSIDE RECORDS SUMMARY | 2025-07-23 17:35 | XMS_ITS | Encounter Summary ---
Author Organization [facility] Address [address] [facility] [address] [place] [address] Phone Care Team Providers Care Customer Experience Strategist Name Role Phone Ronny Lan MD Primary Care Provider [phone] Encounter Details Date Type Department Care Team (Late st Contact Info) Description 08/26/2023 Procedure Pass [place] Admitting Dept - Virtual Department 30 [place] [address] Social History Tobacco Use Types Packs/Day Years [...] as of this encounter Care Teams Customer Experience Strategist Relationship Specialty Start Date End Date Ronny Lan MD [address] [place] [address] Dr [address] [place] [address] PCP - General Internal Medicine 06/18/23 documented as of this encounter Additional Source Comments The information contained in this document represents components of the legal health record. It is not the complete legal health record.[facility]
[2025-07-29 14:43] LABS: Vitamin D 25-OH, D2 <4 ng/mL; Vitamin D 25-OH, D3 19 ng/mL; Vitamin D 25-OH, Total 19 ng/mL (30-100)
== END 2025-07-23 15:06 | disposition home or self-care (01) ==
LOC: HO.LAB 15:05
PROVIDERS: PCP Internal Medicine; Visit Provider Nurse Practitioner Family
DX: E55.9 Vitamin D deficiency, unspecified (principal); R10.9 Unspecified abdominal pain
CPT/HCPCS: 36415; 82306; 83690; 86364

== ENCOUNTER 2025-09-01 14:52 | Outpatient (REF) | payer OTHER, SELFPAY ==
--- NOTE | ~2025-09-01 | MM_ITS ---
EXAMINATION: MM SCREENING DIGITAL BREAST TOMOSYNTHESIS, BILATERAL CLINICAL INFORMATION: Screening. Asymptomatic. COMPARISON: Comparison made to multiple prior, most recent August 26, 2024, and most remote July 13, 2020. TECHNIQUE: Digital breast tomosynthesis is performed in mediolateral oblique and craniocaudal views along with computer-aided detection (CAD). Synthesized 2D images are generated from the tomosynthesis. FINDINGS: BREAST COMPOSITION: There are scattered areas of fibroglandular density. BILATERAL BREASTS: No significant masses, suspicious calcifications or other abnormalities are seen in either breast. MM/MM tomosynthesis screening BI IMPRESSION: BILATERAL BREASTS: Negative, no mammographic evidence of malignancy. Normal interval follow-up is recommended in 12 months. ASSESSMENT: BI-RADS: Category 1: Negative RECOMMENDATION: Routine annual mammography screening. FOLLOW-UP: 1 year F/U This examination should not preclude the clinical evaluation of a suspicious palpable abnormality. This patient's information was entered into a reminder system with a target due date for their next mammogram. Electronically signed by: Jaciel Mcfarland MD 09/03/2025 05:36 PM [facility]
--- OUTSIDE RECORDS SUMMARY | 2025-09-01 17:32 | XMS_ITS | Encounter Summary ---
Author Organization [facility] Address [address] [facility] [address] [place] [address] Phone Care Team Providers Care Technical Healthcare Consultant Name Role Phone Kiana Oquendo MD Primary Care Provider Kiana Oquendo MD Unavailable [phone] Kendall Sprague MD Unavailable [phone] Ronny Lan MD Primary Care Provider [phone] Encounter Details Date Type Department Care Team (Latest Contact Info) Description 05/21/2018 Transcribe Orders [facility] Vein Center [address] [place] [address] Justus Mitchell [address] [place] [address] [email or web address] Symptomatic varicose veins of left lower extremity [...] documented as of this encounter Care Teams Technical Healthcare Consultant Relationship Specialty Start Date End Date Kiana Oquendo MD [address] [place] [address] PCP - General Family Medicine 12/27/17 06/17/23 Ronny Lan MD [address] [place] [address] [place] [address] PCP - General Internal Medicine 06/18/23 Kiana Oquendo MD [address] [place] [address] Historical LMR Provider 11/06/18 2 Kendall Sprague MD [address] [place] [address] [email or web address] LMR Provider 11/06/18 documented as of this encounter Additional Source Comments The information contained in this document represents components of the legal health record. It is not the complete legal health record.[facility]
--- OUTSIDE RECORDS SUMMARY | 2025-09-01 17:32 | XMS_ITS | Encounter Summary ---
Author Organization [facility] Address 399 [facility] [address] [place] [address] Phone Care Team Providers Care Cardiographer Name Role Phone Kiana Oquendo MD Primary Care Provider Kiana Oquendo MD Unavailable [phone] Kendall Sprague MD Unavailable [phone] Ronny Lan MD Primary Care Provider + [phone] Encounter Details Date Type Department Care Team (Latest Contact Info) Description 04/03/[address] [facility] Vein Center [address] [place] [address] Xuan Grimes MD [address] [place] [address] [email or web address] Varicose veins of left lower [...] Center Ultrasound (04/03/2018 9:00 AM EDT) Narrative [facility] - 04/03/2018 9:00 AM EDT This [...] documented as of this encounter Care Teams Cardiographer Relationship Specialty Start Date End Date Kiana Oquendo MD [address] [address] PCP - General Family Medicine 12/27/17 06/17/23 Ronny Lan MD [address] [place] [address] [place] [address] PCP - General Internal Medicine 06/18/23 Kiana Oquendo MD [address] [place] [address] Historical LMR Provider 11/06/18 2 Kendall Sprague MD 500 [place] [address] [email or web address] LMR Provider 11/06/18 documented as of this encounter Additional Source Comments The information contained in this document represents components of the legal health record. It is not the complete legal health record.[facility]
--- OUTSIDE RECORDS SUMMARY | 2025-09-01 17:32 | XMS_ITS | Encounter Summary ---
Author Organization [facility] Address [address] [facility] [address] [place] [id number] Phone Care Team Providers Care Director Of Curriculum And Instruction Name Role Phone Kiana Oquendo MD Primary Care Provider Kiana Oquendo MD Unavailable [phone] Kendall Sprague MD Unavailable [phone] Ronny Lan MD Primary Care Provider [phone] Encounter Details Date Type Department Care Team (Latest Contact Info) Description 04/17/[address] [facility] [address] [place] [address] Xuan Grimes MD [address] [place] [address] [email or web address] Varicose veins of right lower [...] Center Ultrasound (04/17/2018 7:56 AM EDT) Narrative [facility] - 04/17/2018 7:56 AM EDT This [...] documented as of this encounter Care Teams Director Of Curriculum And Instruction Relationship Specialty Start Date End Date Kiana Oquendo MD [address] [address] PCP - General Family Medicine 12/27/17 06/17/23 Ronny Lan MD [address] [place] [address] [place] [address] PCP - General Internal Medicine 06/18/23 Kiana Oquendo MD [address] [address] Historical LMR Provider 11/06/18 2 Kendall Sprague MD [address] [place] [address] [email or web address] Historical LMR Provider 11/06/18 documented as of this encounter Additional Source Comments The information contained in this document represents components of the legal health record. It is not the complete legal health record.[facility]
--- OUTSIDE RECORDS SUMMARY | 2025-09-01 17:32 | XMS_ITS | Encounter Summary ---
Author Organization [facility] Address [address] [facility] [address] [place] [address] Phone Care Team Providers Care Fur Finisher Name Role Phone Kiana Oquendo MD Primary Care Provider Kiana Oquendo MD Primary Care Provider Kiana Oquendo MD Unavailable [phone] Kendall Sprague MD Unavailable [phone] Ronny Lan MD Primary Care Provider [phone] Encounter Details Date Type Department Care Team (Late st Contact Info) Description 06/26/2017 Procedure Pass [facility] [address] [place] [address] Social History Tobacco Use Types Packs/Day Years [...] documented as of this encounter Care Teams Fur Finisher Relationship Specialty Start Date End Date Kiana Oquendo MD [address] [facility] 9 [place] [address] PCP - General Family Medicine 05/13/17 12/26/17 Kiana Oquendo MD [address] [address] PCP - General Family Medicine 12/27/17 06/17/23 Ronny Lan MD [address] [place] [address] [place] [address] PCP - General Internal Medicine 06/18/23 Kiana Oquendo MD [address] [address] Historical LMR Provider 11/06/18 2 Kendall Sprague MD [address] [place] [address] [email or web address] LMR Provider 11/06/18 documented as of this encounter Additional Source Comments The information contained in this document represents components of the legal health record. It is not the complete legal health record.[facility]
--- OUTSIDE RECORDS SUMMARY | 2025-09-01 17:32 | XMS_ITS | Encounter Summary ---
Author Organization [facility] Address [address] [facility] [address] [place] [address] Phone Care Team Providers Care Supply Manager Name Role Phone Kiana Oquendo MD Primary Care Provider Kiana Oquendo MD Primary Care Provider Kiana Oquendo MD Unavailable [phone] Kendall Sprague MD Unavailable [phone] Ronny Lan MD Primary Care Provider [phone] Encounter Details Date Type Department Care Team (Late st Contact Info) Description 07/10/2017 Ancillary Orders [facility] [address] [place] [address] Terence Santos MD [address] [facility] 7 [place] [address] Chest pain, unspecified type Social History Tobacco [...] 230/112 mm Hg at peak exercise (RPP: 11284). Oxygen saturation remained unchanged at 99% during [...] tracings available from [facility]'s [employer]. Thank you for referring this [...] to 230/112 mmHg at peak exercise (RPP: 95928). Oxygen saturation remained unchangedat 99% during exercise. [...] tracings available from [facility]'s [employer]. Thank you for referring this [...] documented as of this encounter Care Teams Supply Manager Relationship Specialty Start Date End Date Kiana Oquendo MD [address] [address] PCP - General Family Medicine 05/13/17 12/26/17 Kiana Oquendo MD [address] [place] [address] PCP - General Family Medicine 12/27/17 06/17/23 Ronny Lan MD [address] [place] [address] [place] [address] PCP - General Internal Medicine 06/18/23 Kiana Oquendo MD [address] [address] Historical LMR Provider 11/06/18 2 Kendall Sprague MD [address] [place] [address] [email or web address] LMR Provider 11/06/18 documented as of this encounter Additional Source Comments The information contained in this document represents components of the legal health record. It is not the complete legal health record.[facility]
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
--- OUTSIDE RECORDS SUMMARY | 2025-09-01 17:32 | XMS_ITS | Encounter Summary ---
Author Organization [facility] Address [address] [facility] [address] [place] [address] Phone Care Team Providers Care Service Plumber Name Role Phone Ronny Lan MD Primary Care Provider [phone] Encounter Details Date Type Department Care Team (Late st Contact Info) Description 08/26/2023 Procedure Pass OR Admitting Dept - Virtual Department [address] [place] [address] Social History Tobacco Use Types Packs/Day Years [...] documented as of this encounter Care Teams Service Plumber Relationship Specialty Start Date End Date Ronny Lan MD [address] [place] [address] Dr Portillo [address] [place] [address], [place] [address] PCP - General Internal Medicine 06/18/23 documented as of this encounter Additional Source Comments The information contained in this document represents components of the legal health record. It is not the complete legal health record.[facility]
--- OUTSIDE RECORDS SUMMARY | 2025-09-01 17:32 | XMS_ITS | Encounter Summary ---
Author Organization [facility] Address [address] [facility] [address] [place] [address] Phone Care Team Providers Care Apns Name Role Phone iKana Oquendo MD Primary Care Provider Kiana Oquendo MD Unavailable [phone] Kendall Sprague MD Unavailable [phone] Ronny Lan MD Primary Care Provider [phone] Encounter Details Date Type Department Care Team (Latest Contact Info) Description 05/08/2018 Transcribe Orders [facility] [address] [place] [address] Justus Mitchell [address] [place] [address] [email or web address] Symptomatic varicose veins of left lower extremity [...] Center Ultrasound (05/08/2018 7:55 AM EDT) Narrative [facility] - 05/08/2018 7:55 AM EDT This [...] documented as of this encounter Care Teams Apns Relationship Specialty Start Date End Date Kiana Oquendo MD [address] [place] [address] PCP - General Family Medicine 12/27/17 06/17/23 Ronny Lan MD [address] [place] [address] [place] [address] PCP - General Internal Medicine 06/18/23 Kiana Oquendo MD [address] [place] [address] Historical LMR Provider 11/06/18 2 Kendall Sprague MD [address] [place] [address] [email or web address] LMR Provider 11/06/18 documented as of this encounter Additional Source Comments The information contained in this document represents components of the legal health record. It is not the complete legal health record.[facility]
--- OUTSIDE RECORDS SUMMARY | 2025-09-01 17:32 | XMS_ITS | Encounter Summary ---
Author Organization [facility] Address [address] [facility] [address] [place] [address] Phone Care Team Providers Care Marketing Lead Name Role Phone Kiana Oquendo MD Primary Care Provider Kiana Oquendo MD Primary Care Provider Kiana Oquendo MD Unavailable [phone] Kendall Sprague MD Unavailable [phone] Ronny Lan MD Primary Care Provider [phone] Encounter Details Date Type Department Care Team (Late st Contact Info) Description 06/26/2017 Procedure Pass [facility] [address] [place] [address] Social History Tobacco Use Types Packs/Day Years [...] documented as of this encounter Care Teams Marketing Lead Relationship Specialty Start Date End Date Kiana Oquendo MD [address] [facility] [address] [place] [address] PCP - General Family Medicine 05/13/17 12/26/17 Kiana Oquendo MD [address] [address] PCP - General Family Medicine 12/27/17 06/17/23 Ronny Lan MD [address] [place] [address] [place] [address] PCP - General Internal Medicine 06/18/23 Kiana Oquendo MD [address] [address] Historical LMR Provider 11/06/18 2 Kendall Sprague MD [address] [place] [address] [email or web address] Provider 11/06/18 documented as of this encounter Additional Source Comments The information contained in this document represents components of the legal health record. It is not the complete legal health record.[facility]
== END 2025-09-01 14:53 | disposition home or self-care (01) ==
LOC: HO.MAMMO 14:52
PROVIDERS: PCP Internal Medicine; Visit Provider Internal Medicine
DX: Z12.31 Encounter for screening mammogram for malignant neoplasm of breast (principal)
CPT/HCPCS: 77063; 77067

== ENCOUNTER → 2025-09-01 15:45 | Outpatient (BNV) | payer OTHER, SELFPAY | PROVIDERS: PCP Internal Medicine; Visit Provider Radiology Body Imaging | DX: Z12.31 Encounter for screening mammogram for malignant neoplasm of breast (principal) | CPT/HCPCS: 77063; 77067 ==

== ENCOUNTER 2025-09-10 14:58 | Outpatient (AMB) | payer OTHER, SELFPAY ==
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
[2025-09-10 15:31] VITALS: BP 120/66; PULSE 62; TEMP 36.3; O2SAT 100
--- OUTSIDE RECORDS SUMMARY | 2025-09-10 19:05 | XMS_ITS | Encounter Summary ---
Author Organization [facility] Address [address] [facility] [address] [place] [address] Phone Care Team Providers Care [employer] Name Role Phone Kiana Oquendo MD Primary Care Provider Kiana Oquendo MD Unavailable [phone] Kendall Sprague MD Unavailable [phone] Ronny Lan MD Primary Care Provider [phone] Encounter Details Date Type Department Care Team (Latest Contact Info) Description 05/21/2018 Transcribe Orders [facility] Vein Center [address] [place] [address] Justus Mitchell [address] [place] [id number] [email or web address] Symptomatic varicose veins of left lower [...] Center Ultrasound (05/21/2018 9:25 AM EDT) Narrative PAN_[facility] - 05/21/2018 9:25 AM EDT [...] documented as of this encounter Care Teams [employer] Relationship Specialty Start Date End Date Kiana Oquendo MD [address] [place] [address] PCP - General Family Medicine 12/27/17 06/17/23 Ronny Lan MD [address] [place] [address] [place] [address] PCP - General Internal Medicine 06/18/23 Kiana Oquendo MD [address] [place] [address] Historical LMR Provider 11/06/18 2 Kendall Sprague MD [address] [place] [address] [email or web address] Historical LMR Provider 11/06/18 documented as of this encounter Additional Source Comments The information contained in this document represents components of the legal health record. It is not the complete legal health record.[facility]
--- OUTSIDE RECORDS SUMMARY | 2025-09-10 19:05 | XMS_ITS | Encounter Summary ---
Author Organization [facility] Address [address] [facility] [address] [place] [address] Phone Care Team Providers Care Bone Crusher Name Role Phone Kiana Oquendo MD Primary Care Provider Kiana Oquendo MD Primary Care Provider Kiana Oquendo MD Unavailable [phone] Kendall Sprague MD Unavailable [phone] Ronny Lan MD Primary Care Provider [phone] Encounter Details Date Type Department Care Team (Late st Contact Info) Description 06/26/2017 Procedure Pass [facility] [address] [place] [address] Social History Tobacco Use Types Packs/Day Years [...] documented as of this encounter Care Teams Bone Crusher Relationship Specialty Start Date End Date Kiana Oquendo MD [address] [facility] [address] [place] [address] PCP - General Family Medicine 05/13/17 12/26/17 Kiana Oquendo MD [address] [address] PCP - General Family Medicine 12/27/17 06/17/23 Ronny Lan MD [address] [place] [address] [place] [address] PCP - General Internal Medicine 06/18/23 Kiana Oquendo MD [address] [address] Historical LMR Provider 11/06/18 2 Kendall Sprague MD [address] [place] [address] [email or web address] Historical LMR Provider 11/06/18 documented as of this encounter Additional Source Comments The information contained in this document represents components of the legal health record. It is not the complete legal health record.[facility]
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
--- OUTSIDE RECORDS SUMMARY | 2025-09-10 19:05 | XMS_ITS | Encounter Summary ---
Author Organization [facility] Address [address] [facility] [address] [place] [address] Phone Care Team Providers Care Monitoring Tech Name Role Phone Kiana Oquendo MD Primary Care Provider Kiana Oquendo MD Unavailable [phone] Kendall Sprague MD Unavailable [phone] Ronny Lan MD Primary Care Provider [phone] Encounter Details Date Type Department Care Team (Latest Contact Info) Description 04/17/2018 Transcribe Orders [facility] Vein Center [address] [place] [address] Xuan Grimes MD [address] [place] [address] [email or web address] Varicose veins of right lower extremity with [...] Center Ultrasound (04/17/2018 7:56 AM EDT) Narrative [facility] - 04/17/2018 7:56 AM EDT This [...] documented as of this encounter Care Teams Monitoring Tech Relationship Specialty Start Date End Date Kiana Oquendo MD [address] [address] PCP - General Family Medicine 12/27/17 06/17/23 Ronny Lan MD [address] [place] [address] [place] [address] PCP - General Internal Medicine 06/18/23 Kiana Oquendo MD [address] [address] Historical LMR Provider 11/06/18 2 Kendall Sprague MD [address] [place] [address] [email or web address] Historical LMR Provider 11/06/18 documented as of this encounter Additional Source Comments The information contained in this document represents components of the legal health record. It is not the complete legal health record.[facility]
--- OUTSIDE RECORDS SUMMARY | 2025-09-10 19:05 | XMS_ITS | Encounter Summary ---
Author Organization [facility] Address [address] [facility] [address] [place] [address] Phone Care Team Providers Care Collar Turner Operator Name Role Phone Ronny Lan MD Primary Care Provider [phone] Encounter Details Date Type Department Care Team (Late st Contact Info) Description 08/26/2023 Procedure Pass [place] Admitting Dept - Virtual Department [address] [place] [address] Social History Tobacco Use Types Packs/Day Years [...] documented as of this encounter Care Teams Collar Turner Operator Relationship Specialty Start Date End Date Ronny Lan MD [address] [place] [address] Dr Portillo [address] [place] [address], [place] [address] PCP - General Internal Medicine 06/18/23 documented as of this encounter Additional Source Comments The information contained in this document represents components of the legal health record. It is not the complete legal health record.[facility]
--- OUTSIDE RECORDS SUMMARY | 2025-09-10 19:05 | XMS_ITS | Encounter Summary ---
Author Organization [facility] Address [address] [facility] [address] [place] [address] Phone Care Team Providers Care Powder Cutting Operator Name Role Phone Kiana Oquendo MD Primary Care Provider Kiana Oquendo MD Unavailable [phone] Kendall Sprague MD Unavailable [phone] Ronny Lan MD Primary Care Provider [phone] Encounter Details Date Type Department Care Team (Latest Contact Info) Description 04/03/2018 Transcribe Orders [facility] Vein Center [address] [place] [address] Xuan Grimes MD [address] [place] [address] [email or web address] Varicose veins of left [...] Center Ultrasound (04/03/2018 9:00 AM EDT) Narrative [facility] - 04/03/2018 9:00 AM EDT This [...] documented as of this encounter Care Teams Powder Cutting Operator Relationship Specialty Start Date End Date Kiana Oquendo MD [address] [address] PCP - General Family Medicine 12/27/17 06/17/23 Ronny Lan MD [address] [place] [address] [place] [address] PCP - General Internal Medicine 06/18/23 Kiana Oquendo MD [address] [place] [address] Historical LMR Provider 11/06/18 2 Kendall Sprague MD [address] [place] [address] [email or web address] Historical LMR Provider 11/06/18 documented as of this encounter Additional Source Comments The information contained in this document represents components of the legal health record. It is not the complete legal health record.[facility]
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
--- OUTSIDE RECORDS SUMMARY | 2025-09-10 19:05 | XMS_ITS | Encounter Summary ---
Author Organization [facility] Address [address] [facility] [address] [place] [address] Phone Care Team Providers Care Communications Consultant Name Role Phone Kiana Oquendo MD Primary Care Provider Kiana Oquendo MD Unavailable [phone] Kendall Sprague MD Unavailable [phone] Ronny Lan MD Primary Care Provider [phone] Encounter Details Date Type Department Care Team (Latest Contact Info) Description 05/08/2018 Transcribe Orders [facility] Vein Center [address] [place] [address] Justus Mitchell [address] [place] [address] [email or web address] Symptomatic varicose veins of left lower extremity [...] Center Ultrasound (05/08/2018 7:55 AM EDT) Narrative [facility] - 05/08/2018 7:55 AM EDT This [...] documented as of this encounter Care Teams Communications Consultant Relationship Specialty Start Date End Date Kiana Oquendo MD [address] [place] [address] PCP - General Family Medicine 12/27/17 06/17/23 Ronny Lan MD [address] [place] [address] [place] [address] PCP - General Internal Medicine 06/18/23 Kiana Oquendo MD [address] [place] [address] Historical LMR Provider 11/06/18 2 Kendall Sprague MD [address] [place] [address] [email or web address] Historical LMR Provider 11/06/18 documented as of this encounter Additional Source Comments The information contained in this document represents components of the legal health record. It is not the complete legal health record.[facility]
--- OUTSIDE RECORDS SUMMARY | 2025-09-10 19:05 | XMS_ITS | Encounter Summary ---
Author Organization [facility] Address [address] [facility] [address] [place] [address] Phone Care Team Providers Care Under Water Assistant Name Role Phone Kiana Oquendo MD Primary Care Provider Kiana Oquendo MD Primary Care Provider Kiana Oquendo MD Unavailable [phone] Kendall Sprague MD Unavailable [phone] Ronny Lan MD Primary Care Provider [phone] Encounter Details Date Type Department Care Team (Late st Contact Info) Description 07/10/2017 Ancillary Orders [facility] [address] [place] [address] Terence Santos MD [address] [facility] 7 [place] [address] Chest pain, unspecified type Social History Tobacco [...] 230/112 mm Hg at peak exercise (RPP: 25422). Oxygen saturation remained unchanged at 99% during [...] systolic function. Stress ECG tracings available from [facility]'s [employer] Web Applications. Thank you for referring this [...] to 230/112 mmHg at peak exercise (RPP: 96374). Oxygen saturation remained unchangedat 99% during exercise. [...] systolic function. Stress ECG tracings available from [facility]'s [employer] Web [employer]. Thank you for referring this [...] documented as of this encounter Care Teams Under Water Assistant Relationship Specialty Start Date End Date Kiana Oquendo MD [address] [address] PCP - General Family Medicine 05/13/17 12/26/17 Kiana Oquendo MD [address] [place] [address] PCP - General Family Medicine 12/27/17 06/17/23 Ronny Lan MD [address] [place] [address] [place] [address] PCP - General Internal Medicine 06/18/23 Kiana Oquendo MD [address] [address] Historical LMR Provider 11/06/18 2 Kendall Sprague MD 500 [place] [address] [email or web address] Historical LMR Provider 11/06/18 documented as of this encounter Additional Source Comments The information contained in this document represents components of the legal health record. It is not the complete legal health record.[facility]
--- OUTSIDE RECORDS SUMMARY | 2025-09-10 19:05 | XMS_ITS | Encounter Summary ---
Author Organization [facility] Address [address] [facility] [address] [place] [address] Phone Care Team Providers Care Proposal Rep Name Role Phone Kiana Oquendo MD Primary Care Provider Kiana Oquendo MD Primary Care Provider Kiana Oquendo MD Unavailable [phone] Kendall Sprague MD Unavailable [phone] Ronny Lan MD Primary Care Provider [phone] Encounter Details Date Type Department Care Team (Late st Contact Info) Description 06/26/2017 Procedure Pass [facility] [address] [place] [address] Social History Tobacco Use Types Packs/Day Years [...] documented as of this encounter Care Teams Proposal Rep Relationship Specialty Start Date End Date Kiana Oquendo MD 360 [facility] 9 [place] [address] PCP - General Family Medicine 05/13/17 12/26/17 Kiana Oquendo MD [address] [place] [address] [address] PCP - General Family Medicine 12/27/17 06/17/23 Ronny Lan MD [address] [place] [address] [place] [address] PCP - General Internal Medicine 06/18/23 Kiana Oquendo MD [address] [place] [address] [address] Historical LMR Provider 11/06/18 2 Kendall Sprague MD 500 [place] [address] [email or web address] LMR Provider 11/06/18 documented as of this encounter Additional Source Comments The information contained in this document represents components of the legal health record. It is not the complete legal health record.[facility]
== END 2025-09-10 16:38 | disposition home or self-care (01) ==
LOC: HO.HMCH 14:59
PROVIDERS: PCP Internal Medicine; Visit Provider Nurse Practitioner Family
DX: M79.18 Myalgia, other site (principal)

== ENCOUNTER → 2025-09-10 14:58 | Outpatient (BNVA) | payer OTHER, SELFPAY | PROVIDERS: PCP Internal Medicine; Visit Provider Nurse Practitioner Family | DX: Z09 Encounter for follow-up examination after completed treatment for conditions other than malignant neoplasm (principal); V89.2XXA Person injured in unspecified motor-vehicle accident, traffic, initial encounter; M79.18 Myalgia, other site | CPT/HCPCS: 99212 ==

== ENCOUNTER 2025-09-13 14:27 | Outpatient (REF) | payer OTHER, SELFPAY ==
--- NOTE | ~2025-09-13 | US_ITS ---
EXAMINATION: US PELVIS CLINICAL INFORMATION: Follow-up leiomyoma COMPARISON: Previous pelvic ultrasound exams most recent April 2024 TECHNIQUE: Ultrasound of the pelvis is performed using both transabdominal and transvaginal transducers along with Doppler. Transvaginal imaging is performed due to inadequate visualization transabdominally. FINDINGS: Uterus: The uterus is anteverted and measures 6.3 x 3.4 x 4.4 cm. There is an IUD in the uterus in satisfactory position. The endometrium does not appear thickened. The uterus is smooth in contour and has normal myometrial echogenicity. There is a 1 x 0.6 x 0.8 cm submucosal anterior lower uterine segment fibroid. This measured 1.4 x 1.1 x 1.3 cm on prior exam and may be slightly decreased in size. Adnexa: There is no pelvic ascites or fluid collection. Limited visualization of the right ovary. The right ovary is seen transabdominally only and appears normal. Right ovary measures 1.9 x 1.4 x 1.3 cm. Left ovary measures 1.4 x 1.2 x 1.3 cm. There is a new 0.9 x 0.7 x 0.9 cm complex left ovarian cyst with thick echogenic wall probably representing a resolving physiologic cyst. US/US pelvic and transvaginal IMPRESSION: There may be slight interval decrease in the subserosal anterior lower uterine segment fibroid from prior exam. IUD in the uterus in satisfactory position. Limited visualization of the right ovary. 9 mm complex left ovarian cyst probably representing an involuting physiologic cyst. Electronically signed by: Cherelle Harris MD 09/13/2025 03:50 PM [facility]
--- OUTSIDE RECORDS SUMMARY | 2025-09-13 23:28 | XMS_ITS | Encounter Summary ---
Author Organization [facility] Address [address] [facility] [address] [place] [address] Phone Care Team Providers Care Bath Solution Maker Name Role Phone Kiana Oquendo MD Primary Care Provider Kiana Oquendo MD Primary Care Provider Kiana Oquendo MD Unavailable [phone] Kendall Sprague MD Unavailable [phone] Ronny Lan MD Primary Care Provider [phone] Encounter Details Date Type Department Care Team (Late st Contact Info) Description 06/26/2017 Procedure Pass [facility] 70 [place] [address] Social History Tobacco Use Types Packs/Day Years [...] documented as of this encounter Care Teams Bath Solution Maker Relationship Specialty Start Date End Date Kiana Oquendo MD 360 [facility] 9 [place] [address] PCP - General Family Medicine 05/13/17 12/26/17 Kiana Oquendo MD [address] [address] PCP - General Family Medicine 12/27/17 06/17/23 Ronny Lan MD [address] [place] [address] [place] [address] PCP - General Internal Medicine 06/18/23 Kiana Oquendo MD [address] [address] Historical LMR Provider 11/06/18 2 Kendall Sprague MD 500 [place] [address] [email or web address] LMR Provider 11/06/18 documented as of this encounter Additional Source Comments The information contained in this document represents components of the legal health record. It is not the complete legal health record.[facility]
--- OUTSIDE RECORDS SUMMARY | 2025-09-13 23:28 | XMS_ITS | Encounter Summary ---
Author Organization [facility] Address 399 [facility] [address] [place] [address] Phone Care Team Providers Care Modeler Name Role Phone Kiana Oquendo MD Primary Care Provider Kiana Oquendo MD Primary Care Provider Kiana Oquendo MD Unavailable [phone] Kendall Sprague MD Unavailable [phone] Ronny Lan MD Primary Care Provider [phone] Encounter Details Date Type Department Care Team (Late st Contact Info) Description 06/26/2017 Procedure Pass [facility] 70 [place] [address] Social History Tobacco Use Types Packs/Day Years [...] documented as of this encounter Care Teams Modeler Relationship Specialty Start Date End Date Kiana Oquendo MD 360 [facility] 9 [place] [address] PCP - General Family Medicine 05/13/17 12/26/17 Kiana Oquendo MD [address] [address] PCP - General Family Medicine 12/27/17 06/17/23 Ronny Lan MD [address] [place] [address] [place] [address] PCP - General Internal Medicine 06/18/23 Kiana Oquendo MD [address] [address] Historical LMR Provider 11/06/18 2 Kendall Sprague MD 500 [place] [address] [email or web address] Historical LMR Provider 11/06/18 documented as of this encounter Additional Source Comments The information contained in this document represents components of the legal health record. It is not the complete legal health record.[facility]
--- OUTSIDE RECORDS SUMMARY | 2025-09-13 23:29 | XMS_ITS | Patient Health Record ---
Author Organization [facility] Address [address] [address] Care Team Providers Care Supervisor Gear Repair Name Role Phone Kiana Hillman MD Primary Care Provider Unavailable Zacarias Mayorga Unavailable [phone] Reason For Referral No Information Medications Medication SIG (Take, Route, Frequency, Duration) Notes Start Date End Date Status metFORMIN HCl 500 MG 1 tablet with meals Orally Twice a day Active Vitamin D (Ergocalciferol) 34594 UNIT 1 capsule Orally Active traZODone HCl [...] due to varicose veins of left leg ([id number] 51116) Varicose veins of left lower extremities with pain (I83.812) Active confirmed Plan Of Treatment No Information Insurance Providers Payer Name Payer Address Payer Phone Subscriber Number Group Number Insured Name Patient Relationship to Insured Coverage Start Date Coverage End Date Medicaid [address] [place] [address] [id number] Linnette Dunne Self - patient is the insured Medical (General) History Medical History History ICD Code 1. Varicose Veins 2. Lupus; lab diagnosed 3. Claudication 4. Hypertension 5. Asthma 6. Gastro_Esophageal Reflux Disease 7. Non Smoker
--- OUTSIDE RECORDS SUMMARY | 2025-09-13 23:29 | XMS_ITS | Encounter Summary ---
Author Organization [facility] Address [address] [facility] [address] [place] [address] Phone Care Team Providers Care Shotblast Operator Name Role Phone Ronny Lan MD Primary Care Provider [phone] Encounter Details Date Type Department Care Team (Late st Contact Info) Description 08/26/2023 Procedure Pass [place] Admitting Dept - Virtual Department 30 [place] [address] Social History Tobacco Use Types Packs/Day Years [...] documented as of this encounter Care Teams Shotblast Operator Relationship Specialty Start Date End Date Ronny Lan MD [address] [place] [address] Dr Portillo [address] [place] [address], [place] [address] PCP - General Internal Medicine 06/18/23 documented as of this encounter Additional Source Comments The information contained in this document represents components of the legal health record. It is not the complete legal health record.[facility]
--- OUTSIDE RECORDS SUMMARY | 2025-09-13 23:29 | XMS_ITS | Encounter Summary ---
Author Organization [facility] Address 399 [facility] [address] [place] [address] Phone Care Team Providers Care Loan Representative Name Role Phone Kiana Oquendo MD Primary Care Provider Kiana Oquendo MD Unavailable [phone] Kendall Sprague MD Unavailable [phone] Ronny Lan MD Primary Care Provider [phone] Encounter Details Date Type Department Care Team (Latest Contact Info) Description 05/08/2018 Transcribe Orders [facility] Vein Center [address]nd [place] [address] Justus Mitchell [address] [place] [address] [email or web address] Symptomatic varicose veins of left lower extremity [...] Center Ultrasound (05/08/2018 7:55 AM EDT) Narrative [facility] - 05/08/2018 7:55 AM EDT This [...] documented as of this encounter Care Teams Loan Representative Relationship Specialty Start Date End Date Kiana Oquendo MD [address] [place] [address] PCP - General Family Medicine 12/27/17 06/17/23 Ronny Lan MD [address] [place] [address] [place] [address] PCP - General Internal Medicine 06/18/23 Kiana Oquendo MD [address] [place] [address] Historical LMR Provider 11/06/18 2 Kendall Sprague MD [address] [place] [address] [email or web address] Historical LMR Provider 11/06/18 documented as of this encounter Additional Source Comments The information contained in this document represents components of the legal health record. It is not the complete legal health record.[facility]
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
--- OUTSIDE RECORDS SUMMARY | 2025-09-13 23:29 | XMS_ITS | Encounter Summary ---
Author Organization [facility] Address 399 [facility] [address] [place] [address] Phone Care Team Providers Care Wall And Floor Tiler Name Role Phone Kiana Oquendo MD Primary Care Provider Kiana Oquendo MD Unavailable [phone] Kendall Sprague MD Unavailable [phone] Ronny Lan MD Primary Care Provider [phone] Encounter Details Date Type Department Care Team (Latest Contact Info) Description 04/17/[address] [facility] Vein Center [address]nd [place] [address] Xuan Grimes MD [address] [place] [address] [email or web address] Varicose veins of right lower extremity [...] Ultrasound (04/17/2018 7:56 AM EDT) Narrative [facility] - 04/17/2018 7:56 AM EDT This study [...] documented as of this encounter Care Teams Wall And Floor Tiler Relationship Specialty Start Date End Date Kiana Oquendo MD [address] [address] PCP - General Family Medicine 12/27/17 06/17/23 Ronny Lan MD [address] [place] [address] [place] [address] PCP - General Internal Medicine 06/18/23 Kiana Oquendo MD [address] [address] Historical LMR Provider 11/06/18 2 Kendall Sprague MD 500 [place] [address] [email or web address] Historical LMR Provider 11/06/18 documented as of this encounter Additional Source Comments The information contained in this document represents components of the legal health record. It is not the complete legal health record.[facility]
--- OUTSIDE RECORDS SUMMARY | 2025-09-13 23:29 | XMS_ITS | Encounter Summary ---
Author Organization [facility] Address [address] [facility] [address] [place] [address] Phone Care Team Providers Care Veneer Department Manager Name Role Phone Kiana Oquendo MD Primary Care Provider Kiana Oquendo MD Primary Care Provider Kiana Oquendo MD Unavailable [phone] Kendall Sprague MD Unavailable [phone] Ronny Lan MD Primary Care Provider [phone] Encounter Details Date Type Department Care Team (Late st Contact Info) Description 07/10/2017 Ancillary Orders [facility] Cardiovascular Clinic [address] [place] [address] Terence Santos MD [address] [facility] 7 [place] [address] Chest pain, unspecified type Social History Tobacco [...] 230/112 mm Hg at peak exercise (RPP: 34065). Oxygen saturation remained unchanged at 99% during [...] systolic function. Stress ECG tracings available from [facility]'s [employer] Web [employer]. Thank you for referring this [...] to 230/112 mmHg at peak exercise (RPP: 60119). Oxygen saturation remained unchangedat 99% during exercise. [...] systolic function. Stress ECG tracings available from [facility]'s [employer]. Thank you for referring this [...] documented as of this encounter Care Teams Veneer Department Manager Relationship Specialty Start Date End Date Kiana Oquendo MD [address] [address] PCP - General Family Medicine 05/13/17 12/26/17 Kiana Oqunedo MD [address] [place] [address] PCP - General Family Medicine 12/27/17 06/17/23 Ronny Lan MD [address] [place] [address] [place] [address] PCP - General Internal Medicine 06/18/23 Kiana Oquendo MD [address] [address] Historical LMR Provider 11/06/18 2 Kendall Sprague MD 500 [place] [address] [email or web address] LMR Provider 11/06/18 documented as of this encounter Additional Source Comments The information contained in this document represents components of the legal health record. It is not the complete legal health record.[facility]
--- OUTSIDE RECORDS SUMMARY | 2025-09-13 23:29 | XMS_ITS | Encounter Summary ---
Author Organization [facility] Address 399 [facility] [address] [place] [address] Phone Care Team Providers Care Steam Shovelman Name Role Phone Kiana Oquendo MD Primary Care Provider Kiana Oquendo MD Unavailable [phone] Kendall Sprague MD Unavailable [phone] Ronny Lan MD Primary Care Provider [phone] Encounter Details Date Type Department Care Team (Latest Contact Info) Description 05/21/2018 Transcribe Orders [facility] Vein Center [address] [place] [address] Justus Mitchell [address] [place] [address] [email or web address] Symptomatic varicose veins of left lower [...] Center Ultrasound (05/21/2018 9:25 AM EDT) Narrative [facility] - 05/21/2018 9:25 AM EDT This study [...] documented as of this encounter Care Teams Steam Shovelman Relationship Specialty Start Date End Date Kiana Oquendo MD [address] [place] [address] PCP - General Family Medicine 12/27/17 06/17/23 Ronny Lan MD [address] [place] [address] [place] [address] PCP - General Internal Medicine 06/18/23 Kiana Oquendo MD [address] [place] [address] Historical LMR Provider 11/06/18 2 Kendall Sprague MD [address] [place] [address] [email or web address] LMR Provider 11/06/18 documented as of this encounter Additional Source Comments The information contained in this document represents components of the legal health record. It is not the complete legal health record.[facility]
--- OUTSIDE RECORDS SUMMARY | 2025-09-13 23:29 | XMS_ITS | Encounter Summary ---
Author Organization [facility] Address [address] [facility] [address] [place] [address] Phone Care Team Providers Care Content Publisher Name Role Phone Kiana Oquendo MD Primary Care Provider Kiana Oquendo MD Unavailable [phone] Kendall Sprague MD Unavailable [phone] Ronny Lan MD Primary Care Provider [phone] Encounter Details Date Type Department Care Team (Latest Contact Info) Description 04/03/2018 Transcribe Orders [facility] Vein Center [address] [place] [address] Xuan Grimes MD [address] [place] [address] [email or web address] Varicose veins of left lower [...] documented as of this encounter Care Teams Content Publisher Relationship Specialty Start Date End Date Kiana Oquendo MD [address] [address] PCP - General Family Medicine 12/27/17 06/17/23 Ronny Lan MD [address] [place] [address] [place] [address] PCP - General Internal Medicine 06/18/23 Kiana Oquendo MD [address] [place] [address] Historical LMR Provider 11/06/18 2 Kendall Sprague MD 500 [place] [address] [email or web address] LMR Provider 11/06/18 documented as of this encounter Additional Source Comments The information contained in this document represents components of the legal health record. It is not the complete legal health record.[facility]
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
== END 2025-09-13 14:28 | disposition home or self-care (01) ==
LOC: HO.US 14:27
PROVIDERS: PCP Internal Medicine; Visit Provider Obstetrics & Gynecology
DX: D25.2 Subserosal leiomyoma of uterus (principal)
CPT/HCPCS: 76830; 76856

== ENCOUNTER → 2025-09-13 14:28 | Outpatient (BNV) | payer OTHER, SELFPAY | PROVIDERS: PCP Internal Medicine; Visit Provider Radiology Diagnostic Radiology | DX: D25.9 Leiomyoma of uterus, unspecified (principal); N83.202 Unspecified ovarian cyst, left side | CPT/HCPCS: 76830; 76856 ==

== ENCOUNTER 2025-09-27 11:03 | Outpatient (AMB) | payer OTHER, SELFPAY ==
--- NOTE | 2025-09-27 11:03 | A.OFFVIS_ITS ---
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 The patient is doing well with no complaints no abnormal uterine bleeding, pelvic pressure or pain. Pelvic ultrasound done recently showed the following: IMPRESSION: There may be slight interval decrease in the subserosal anterior lower uterine segment fibroid from prior exam. IUD in the uterus in satisfactory position. Limited visualization of the right ovary. 9 mm complex left ovarian cyst probably representing an involuting physiologic cyst. [facility] Medical History (Updated 09/27/25 @ 11:44 by Clayton Barber MD) Musculoskeletal pain Vitamin D deficiency Obesity (BMI 30-39.9) Constipation GERD without esophagitis Gastritis Asthma Overweight (BMI 25.0-29.9) ZHOU positive Varicose veins of bilateral lower extremities with pain Surgical History History of loop electrical excision procedure (LEEP) History of esophagogastroduodenoscopy (EGD) Hx of colonoscopy Hx of laparoscopy Status post laser ablation of incompetent vein H/O tubal ligation Hx of cholecystectomy (~2014) H/O gastric bypass (~2017) Family History Father HTN (hypertension) Diabetes mellitus Mother HTN (hypertension) Diabetes mellitus Asthma Brother No problems noted. Brother No problems noted. Brother No problems noted. Brother No problems noted. Sister No problems noted. Daughter No problems noted. Son No problems noted. Son No problems noted. Paternal Aunt Breast cancer Family/Other Colon cancer Maternal Aunt Ovarian cancer Social History Household Members: Family Housing: House Are you a primary palliative care nurse practitioner to a significant other at home: No Do you presently have visiting nurse or other home services: No Alcohol intake: former Patient Tobacco Use Status: Never used Tobacco e-Cigarette/Vaping Use: Never Used Second Hand Smoke Exposure: No service: No Current occupational status: employed Cognitive needs: No Hearing needs: No Vision needs: Yes (Glasses) Female Reproductive History Menstrual Age of Menarche: 14 Review of Systems Const All systems reviewed & are unremarkable except as noted in HPI and below Reports as per HPI and Reports no additional complaints GI Reports no additional complaints Reports no additional complaints Telehealth Telehealth Telehealth Platform: [employer]Access[employer] Location of provider rendering services: practice address Location of patient: address on file Patient Identification confirmed using: Name, : Yes Telehealth method: video Patient verbally consented to treatment: Yes Patient verbally consented to billing insurance company: Yes Patient informed of any privacy concerns related to visit: Yes Assessment & Plan Assessment & Plan (1) Uterine myoma: Code(s): D25.9 - Leiomyoma of uterus, unspecified Category: Medical Plan: Discussed with the patient the findings on pelvic ultrasound & the risk of myosarcoma; in addition reviewed with the patient that malignancy and pre malignancy cannot be ruled out without hysterectomy for pathological evaluation ; furthermore, explained to the patient the limitation of pelvic ultrasound and endometrial biopsy in the setting. Discussed with the patient the options of treatment including expectant management versus hysterectomy; the pros and cons, risks benefits of each approach were discussed with the patient including the fact that in cases of myosarcoma, surgical treatment can lead to early diagnosis and positively affects the prognosis; after further discussion, the patient decided to proceed with expectant management. Will repeat pelvic ultrasound periodically. Instructions given to patient to call in case any of the following occurs: pressure symptoms, abnormal uterine bleeding, pelvic pain; and to schedule a follow-up appointment . All questions answered, the patient verbalized understanding and agreed with the plan . (2) Complex ovarian cyst: Code(s): N83.299 - Other ovarian cyst, unspecified side Category: Medical Plan: Discussed with the patient the complex ovarian cyst by ultrasound. Discussed with the patient the Ultrasound findings, the main limitation of transvaginal ultrasonography alone as a diagnostic tool to distinguish benign from malignant masses relates to its lack of specificity and low positive predictive value for cancer. The differential diagnosis discussed with the patient includes the following but not limited to: benign and malignant gynecological and non-gynecological causes. Discussed with the patient options of treatment , in case CA 125 is not elevated, including laparoscopy ovarian cystectomy/oophorectomy vs. expectant ma nagement with repeat US in repeating pelvic US in 6-12 weeks from previous US. If the ovarian complex cyst is persistent larger and / or more complex looking, or higher CA 125 will refer to gynecologic Oncology. All pros, cons, risks and benefits of each approach were discussed with the patient including but not limited to a delay in the diagnosis and treatment of ovarian cancer affecting the prognosis; The patient decided to go ahead with expectant management. Instructions given the patient to schedule a 3 months follow-up ultrasound appointment. All questions were answered & the patient verbalized understanding and agreed with the plan. (3) IUD check up: Code(s): Z30.431 - Encounter for routine checking of intrauterine contraceptive device Category: Medical Plan: Recommended the patient IUD removal since she is 55. Instructions given the patient to schedule Mirena IUD removal within 4 weeks I spent a total of 20 minutes reviewing the chart, talking to the patient via video and documenting in the medical record. Orders: Orders US pelvic and transvaginal 4 Weeks N83.299 - Other ovarian cyst, unspecified side Coding Level of Care Code Tele Est Pt Level 3 (27438) Diagnoses Uterine myoma D25.9 Complex ovarian cyst N83.299 IUD check up Z30.431
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
--- OUTSIDE RECORDS SUMMARY | 2025-09-27 13:57 | XMS_ITS | Encounter Summary ---
Author Organization [facility] Address [email or web address] [facility] [address] [place] [address] Phone Care Team Providers Care Director Medical Affairs Name Role Phone Kiana Oquendo MD Primary Care Provider Kiana Oquendo MD Unavailable [phone] Kendall Sprague MD Unavailable [phone] Ronny Lan MD Primary Care Provider [phone] Encounter Details Date Type Department Care Team (Latest Contact Info) Description 04/17/2018 Transcribe Orders [facility] [place] [address] Xuan Grimes MD [address] [place] [id number] [email or web address] Varicose veins of right lower extremity [...] Center Ultrasound (04/17/2018 7:56 AM EDT) Narrative JIAH - 04/17/2018 7:56 AM EDT This study [...] as of this encounter Care Teams Director Medical Affairs Relationship Specialty Start Date End Date Kiana Oquendo MD [address] [address] PCP - General Family Medicine 12/27/17 06/17/23 Ronny Lan MD [address] [place] [address] [place] [address] PCP - General Internal Medicine 06/18/23 Kiana Oquendo MD [address] [address] Historical LMR Provider 11/06/18 2 Kendall Sprague MD [address] [place] [address] [email or web address] LMR Provider 11/06/18 documented as of this encounter Additional Source Comments The information contained in this document represents components of the legal health record. It is not the complete legal health record.[facility]
--- OUTSIDE RECORDS SUMMARY | 2025-09-27 13:57 | XMS_ITS | Patient Health Record ---
Author Organization [facility] Address [address] [address] Care Team Providers Care Bed Spring Maker Name Role Phone Kiana Hillman MD Primary Care Provider Unavailable Zacarias Mayorga Unavailable [phone] Reason For Referral No Information Medications Medication SIG (Take, Route, Frequency, Duration) Notes Start Date End Date Status metFORMIN HCl 500 MG 1 tablet with meals Orally Twice a day Active Vitamin D (Ergocalciferol) 56284 UNIT 1 capsule Orally Active traZODone HCl [...] due to varicose veins of left leg ([id number] [address]) Varicose veins of left lower extremities with pain (I83.812) Active confirmed Plan Of Treatment No Information Insurance Providers Payer Name Payer Address Payer Phone Subscriber Number Group Number Insured Name Patient Relationship to Insured Coverage Start Date Coverage End Date Medicaid [address] [place] [address] [id number] Linnette Dunne Self - patient is the insured Medical (General) History Medical History History ICD Code 1. Varicose Veins 2. Lupus; lab diagnosed 3. Claudication 4. Hypertension 5. Asthma 6. Gastro_Esophageal Reflux Disease 7. Non Smoker
--- OUTSIDE RECORDS SUMMARY | 2025-09-27 13:57 | XMS_ITS | Encounter Summary ---
Author Organization [facility] Address [address] [facility] [address] [place] [address] Phone Care Team Providers Care Hot Sealing Machine Operator Name Role Phone Kiana Oquendo MD Primary Care Provider Kiana Oquendo MD Primary Care Provider Kiana Oquendo MD Unavailable [phone] Kendall Sprague MD Unavailable [phone] Ronny Lan MD Primary Care Provider [phone] Encounter Details Date Type Department Care Team (Late st Contact Info) Description 06/26/2017 Procedure Pass [facility] [address] [place] [address] Social History Tobacco Use Types Packs/Day Years [...] documented as of this encounter Care Teams Hot Sealing Machine Operator Relationship Specialty Start Date End Date Kiana Oquendo MD [address] [facility] [address] [place] [address] PCP - General Family Medicine 05/13/17 12/26/17 Kiana Oquendo MD [address] [address] PCP - General Family Medicine 12/27/17 06/17/23 Ronny Lan MD [address] [place] [address] [place] [address] PCP - General Internal Medicine 06/18/23 Kiana Oquendo MD [address] [address] Historical LMR Provider 11/06/18 2 Kendall Sprague MD [address] [place] [address] [email or web address] LMR Provider 11/06/18 documented as of this encounter Additional Source Comments The information contained in this document represents components of the legal health record. It is not the complete legal health record.[facility]
--- OUTSIDE RECORDS SUMMARY | 2025-09-27 13:57 | XMS_ITS | Encounter Summary ---
Author Organization [facility] Address [address] [facility] [address] [place] [address] Phone Care Team Providers Care Senior Engineering Team Leader Name Role Phone Kiana Oquendo MD Primary Care Provider Kiana Oquendo MD Primary Care Provider Kinaa Oquendo MD Unavailable [phone] Kendall Sprague MD Unavailable [phone] Ronny Lan MD Primary Care Provider [phone] Encounter Details Date Type Department Care Team (Late st Contact Info) Description 06/26/2017 Procedure Pass [facility] [address] [place] [address] Social History Tobacco Use Types Packs/Day Years [...] documented as of this encounter Care Teams Senior Engineering Team Leader Relationship Specialty Start Date End Date Kiana Oquendo MD [address] [facility] [address] [place] [address] PCP - General Family Medicine 05/13/17 12/26/17 Kiana Oquendo MD [address] [address] PCP - General Family Medicine 12/27/17 06/17/23 Ronny Lan MD [address] [place] [address] [place] [address] PCP - General Internal Medicine 06/18/23 Kiana Oquendo MD [address] [address] Historical LMR Provider 11/06/18 2 Kendall Sprague MD [address] [place] [address] [email or web address] LMR Provider 11/06/18 documented as of this encounter Additional Source Comments The information contained in this document represents components of the legal health record. It is not the complete legal health record.[facility]
--- OUTSIDE RECORDS SUMMARY | 2025-09-27 13:57 | XMS_ITS | Encounter Summary ---
Author Organization [facility] Address [address] [facility] [address] [place] [address] Phone Care Team Providers Care Doubler Operator Name Role Phone Kiana Oquendo MD Primary Care Provider Kiana Oquendo MD Primary Care Provider Kiana Oquendo MD Unavailable [phone] Kendall Sprague MD Unavailable [phone] Ronny Lan MD Primary Care Provider [phone] Encounter Details Date Type Department Care Team (Late st Contact Info) Description 07/10/2017 Ancillary Orders [facility] at the [facility] [address] [place] [address] Terence Santos MD [address] Nicki Guerrero [address] [address] Chest pain, unspecified type Social History Tobacco [...] 230/112 mm Hg at peak exercise (RPP: 68068). Oxygen saturation remained unchanged at 99% during [...] systolic function. Stress ECG tracings available from [facility]'s [employer]. Thank you for referring this [...] to 230/112 mmHg at peak exercise (RPP: 01564). Oxygen saturation remained unchangedat 99% during exercise. [...] systolic function. Stress ECG tracings available from [facility]'s [employer]. Thank you for referring this [...] documented as of this encounter Care Teams Doubler Operator Relationship Specialty Start Date End Date Kiana Oquendo MD [address] [place] [address] PCP - General Family Medicine 05/13/17 12/26/17 Kiana Oquendo MD [address] [place] [address] PCP - General Family Medicine 12/27/17 06/17/23 Ronny Lan MD [address] [place] [address] [place] [address] PCP - General Internal Medicine 06/18/23 Kiana Oquendo MD [address] [address] Historical LMR Provider 11/06/18 2 Kendall Sprague MD [address] [place] [address] [email or web address] Historical LMR Provider 11/06/18 documented as of this encounter Additional Source Comments The information contained in this document represents components of the legal health record. It is not the complete legal health record.[facility]
--- OUTSIDE RECORDS SUMMARY | 2025-09-27 13:57 | XMS_ITS | Encounter Summary ---
Author Organization [facility] Address [address] [place] [address] Phone Care Team Providers Care Carbon Accountant Name Role Phone Kiana Oquendo MD Primary Care Provider Kiana Oquendo MD Unavailable [phone] Kendall Sprague MD Unavailable [phone] Ronny Lan MD Primary Care Provider [phone] Encounter Details Date Type Department Care Team (Latest Contact Info) Description 05/21/2018 Transcribe Orders [facility] [address] [address] Justus Mitchell [address] [place] [address] [email or web address] Symptomatic varicose veins of left [...] Center Ultrasound (05/21/2018 9:25 AM EDT) N[facility]ative [facility] 05/21/2018 9:25 AM EDT This [...] documented as of this encounter Care Teams Carbon Accountant Relationship Specialty Start Date End Date Kiana Oquendo MD [address] [place] [address] PCP - General Family Medicine 12/27/17 06/17/23 Ronny Lan MD [address] [place] [address] [address] [facility] [address] PCP - General Internal Medicine 06/18/23 Kiana Oquendo MD [address] [place] [address] Historical LMR Provider 11/06/18 2 Kendall Sprague MD [address] [place] [address] [email or web address] Historical LMR Provider 11/06/18 documented as of this encounter Additional Source Comments The information contained in this document represents components of the legal health record. It is not the complete legal health record.[facility]
--- OUTSIDE RECORDS SUMMARY | 2025-09-27 13:57 | XMS_ITS | Encounter Summary ---
Author Organization [facility] Address [address] [place] [address] Phone Care Team Providers Care Premix Operator Concentrate Name Role Phone Kiana Oquendo MD Primary Care Provider Kiana Oquendo MD Unavailable [phone] Kendall Sprague MD Unavailable [phone] Ronny Lan MD Primary Care Provider [phone] Encounter Details Date Type Department Care Team (Latest Contact Info) Description 04/03/2018 Transcribe Orders [facility] [place] [address] Xuan Grimes MD [address] [place] [address] [email or web address] Varicose veins of left lower extremity [...] Center Ultrasound (04/03/2018 9:00 AM EDT) N[facility]ative [facility] - 04/03/2018 9:00 AM EDT This [...] documented as of this encounter Care Teams Premix Operator Concentrate Relationship Specialty Start Date End Date Kiana Oquendo MD [address] [address] PCP - General Family Medicine 12/27/17 06/17/23 Ronny Lan MD [address] [place] [address] [place] [address] PCP - General Internal Medicine 06/18/23 Kiana Oquendo MD [address] [address] Historical LMR Provider 11/06/18 2 Kendall Sprague MD [address] [place] [address] [email or web address] Historical LMR Provider 11/06/18 documented as of this encounter Additional Source Comments The information contained in this document represents components of the legal health record. It is not the complete legal health record.[facility]
--- OUTSIDE RECORDS SUMMARY | 2025-09-27 13:57 | XMS_ITS | Encounter Summary ---
Author Organization [facility] Address [address] [facility] [address] [place] [address] Phone Care Team Providers Care Appeals Referee Name Role Phone Ronny Lan MD Primary Care Provider [phone] Encounter Details Date Type Department Care Team (Late st Contact Info) Description 08/26/2023 Procedure Pass OR Admitting Dept - Virtual Department [address] [place] [address] Social History Tobacco Use Types Packs/Day Years [...] documented as of this encounter Care Teams Appeals Referee Relationship Specialty Start Date End Date Ronny Lan MD [address] [place] [address] Dr Portillo [address] [place] [address], [place] [address] PCP - General Internal Medicine 06/18/23 documented as of this encounter Additional Source Comments The information contained in this document represents components of the legal health record. It is not the complete legal health record.[facility]
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
--- OUTSIDE RECORDS SUMMARY | 2025-09-27 13:57 | XMS_ITS | Encounter Summary ---
Author Organization [facility] Address [address] [place] [address] Phone Care Team Providers Care Dog Handler Or Trainer Name Role Phone Kiana Oquendo MD Primary Care Provider Kiana Oquendo MD Unavailable [phone] Kendall Sprague MD Unavailable [phone] Ronny Lan MD Primary Care Provider [phone] Encounter Details Date Type Department Care Team (Latest Contact Info) Description 05/08/2018 Transcribe Orders [facility] [address] [address] Justus Mitchell [address] [place] [address] [email or web address] Symptomatic varicose veins of left lower extremity [...] Center Ultrasound (05/08/2018 7:55 AM EDT) N[facility]ative [facility] - 05/08/2018 7:55 AM EDT This study [...] documented as of this encounter Care Teams Dog Handler Or Trainer Relationship Specialty Start Date End Date Kiana Oquendo MD [address] [place] [address] PCP - General Family Medicine 12/27/17 06/17/23 Ronny Lan MD [address] [place] [address] [place] [address] PCP - General Internal Medicine 06/18/23 Kiana Oquendo MD [address] [address] Historical LMR Provider 11/06/18 2 Kendall Sprague MD [address] [place] [address] [email or web address] Historical LMR Provider 11/06/18 documented as of this encounter Additional Source Comments The information contained in this document represents components of the legal health record. It is not the complete legal health record.[facility]
== END 2025-09-27 12:01 | disposition home or self-care (01) ==
LOC: HO.HWS 11:03
PROVIDERS: PCP Internal Medicine; Visit Provider Obstetrics & Gynecology
DX: D25.9 Leiomyoma of uterus, unspecified (principal); N83.299 Other ovarian cyst, unspecified side; Z30.431 Encounter for routine checking of intrauterine contraceptive device
CPT/HCPCS: 99213

== ENCOUNTER 2025-10-05 15:01 | Outpatient (AMB) | payer OTHER, SELFPAY ==
--- NOTE | 2025-10-05 15:11 | MHC.OFFVIS ---
Vital Signs 10/05/25 15:14 Height 5 ft 1 in Weight 159 lb 2.78 oz BMI 30.1 BP 140/82 H Blood Pressure Location Rt brachial Position Sitting Pulse 66 Pulse Source Pulse Oximeter Pulse Oximetry (%) 97 Oxygen Delivery Method Room Air Intake Visit Reasons: Other hypoglycemia Intake Note: New patient internally referred by GI for Hypoglycemia. Patient receives Jihan 3 plus sensors through: [facility] Master Merchandiser Required: No Accompanied by: Self / Same As Patient Allergies No Known Allergies (No Known Allergies*) Allergy (Verified 10/05/25 15:14) Medication List - Last Reconciled 10/05/25 by Merritt Eagle MD acetaminophen 650 mg PO Q6H PRN albuterol sulfate 90 mcg/actuation (ProAir HFA) 1 inh inhalation QID PRN 30 days blood-glucose sensor (FreeStyle Jihan 3 Plus Sensor device) As directed buspirone mg PO cholecalciferol (vitamin D3) 50 mcg PO DAILY copper (ParaGard T 380A) intrauterine escitalopram oxalate 10 mg PO QAM glucagon 1 mg (0.2 mL) subcut Q20M PRN ibuprofen 600 mg PO Q8H PRN pantoprazole 40 mg PO QAM propranolol 10 - 20 mg PO DAILY PRN HPI Comments Details: History of Present Illness The patient is a 55 year old female presenting for evaluation of hypoglycemia. She has a history of bariatric surgery in 2017, with a subsequent 100-pound weight loss. She reports the onset of dizziness approximately two months ago, though she later clarifies the symptoms started earlier this year. The patient uses a continuous glucose monitor (CGM), which has recorded episodes of hypoglycemia with blood glucose levels as low as 50-54 mg/dL. These episodes are characteristically preceded by postprandial hyperglycemia, with blood glucose spiking up to 250 mg/dL after meals containing carbohydrates such as fruit and rice. Symptoms primarily occur during the day after eating, but she also reports feeling weird and being awakened by nocturnal hypoglycemia although none are recorded on the sensor. She has not experienced syncope or seizures. Her HbA1c was 6.0% in June, consistent with prediabetes. She has never been formally diagnosed with diabetes or taken any medications for it. There is a strong family history of diabetes, including her father, mother, brother, and sister. She previously saw a interline clerk at her bariatric center, and dietary changes were helpful. Medication History - The patient has never taken medications for diabetes or hypoglycemia. Medications - No current medications for diabetes or hypoglycemia were reported. Exercise Diet History The patient reports she cannot eat large quantities of food. She has noticed that her symptoms occur after eating certain foods, specifically carbohydrates like fruit and rice. She has previously seen a interline clerk whose dietary advice helped her symptoms. Results - Labs: HbA1c was 6.0% in June. - Tests and Diagnostics: Continuous glucose monitoring (Freestyle Jihan) reveals a pattern of postprandial hyperglycemia with glucose up to 250 mg/dL, followed by reactive hypoglycemia with glucose as low as 50-54 mg/dL. [facility] Medical History (Updated 10/05/25 @ 15:18 by Merritt Eagle MD) Hypoglycemia Musculoskeletal pain Vitamin D deficiency Obesity (BMI 30-39.9) Constipation GERD without esophagitis Gastritis Asthma Overweight (BMI 25.0-29.9) ZHOU positive Varicose veins of bilateral lower extremities with pain Surgical History History of loop electrical excision procedure (LEEP) History of esophagogastroduodenoscopy (EGD) Hx of colonoscopy Hx of laparoscopy Status post laser ablation of incompetent vein H/O tubal ligation Hx of cholecystectomy (~2014) H/O gastric bypass (~2018) Family History Father HTN (hypertension) Diabetes mellitus Mother HTN (hypertension) Diabetes mellitus Asthma Brother No problems noted. Brother No problems noted. Brother No problems noted. Brother No problems noted. Sister No problems noted. Daughter No problems noted. Son No problems noted. Son No problems noted. Paternal Aunt Breast cancer Family/Other Colon cancer Maternal Aunt Ovarian cancer Social History Household Members: Family Housing: House Are you a primary critical care educator to a significant other at home: No Do you presently have visiting nurse or other home services: No Alcohol intake: former Patient Tobacco Use Status: Never used Tobacco e-Cigarette/Vaping Use: Never Used Second Hand Smoke Exposure: No service: No Current occupational status: employed Cognitive needs: No Hearing needs: No Vision needs: Yes (Glasses) Female Reproductive History Menstrual Age of Menarche: 14 Review of Systems Narrative Review of Systems - Neurological: Reports dizziness. - Denies syncope or seizures. - Endocrine: Reports symptomatic hypoglycemia, which can occur after eating and occasionally awakens her at night. - Denies a personal history of diabetes. - Constitutional: Reports feeling weird during hypoglycemic episodes. Physical Exam Exam Exam: Physical Exam - Neck: Supple, no thyromegaly on palpation. - Lungs: Clear to auscultation. Absence of Cushingoid features. Absence of acromegalic features. Neck exam reveals nl size thyroid about 15 gms. No thyroid nodules palpable. Heart S1 S2, Reg R/R. No M/R G. Skin exam reveals absence of vitiligo or acanthosis nigricans. Visual exam of foot performed. No ulcerations or open lesions. No inter digit maceration or fissuring. No onychomycosis, no callouses. Sensation intact to monofilament exam. Vibratory sensation is normal with 128 Hz tuning fork. Vital Signs: Last Vital Signs Pulse 66 10/05/25 15:14 BP 140/82 H 10/05/25 15:14 Pulse Ox 97 10/05/25 15:14 Oxygen Delivery Method Room Air 10/05/25 15:14 BMI result Body Mass Index 30.1 Const Other: Absence of skin hyperpigmentation or hypopigmented. Thyroid gland is normal size weighs about 15 g . There are no thyroid nodules Assessment & Plan Assessment & Plan (1) Hypoglycemia: Code(s): E16.2 - Hypoglycemia, unspecified Category: Medical Plan Assessment and Plan 1. Post-bariatric hypoglycemia The patient's presentation with postprandial hyperglycemia followed by reactive hypoglycemia, confirmed on CGM data, is highly consistent with post-bariatric hypoglycemia, given her history of bariatric surgery in 2018. The plan includes dietary modification, medication, and monitoring. A referral will be placed for the patient to see the in-house interline clerk, Indy, to reinforce a diet of small, frequent, low-carbohydrate, and high-protein meals. She will be started on Acarbose 25 mg to be taken with meals to delay carbohydrate absorption and prevent glycemic excursions. She is advised to continue using her CGM and to have glucose tablets available to treat symptomatic hypoglycemia. 2. Prediabetes The patient's HbA1c of 6.0% confirms prediabetes. The management for this is integrated into the plan for hypoglycemia, focusing on dietary changes and Acarbose. 3. Rule out other etiologies of hypoglycemia. The patient is clinically and biochemically euthyroid While less likely, other causes such as adrenal insufficiency or an insulinoma will be considered. A morning cortisol level will be checked to assess adrenal function; if it is low, a Cortrosyn stimulation test may be indicated. The patient was counseled that if symptoms change to fasting or spontaneous nocturnal hypoglycemia, or if she experiences syncope, a more extensive workup would be required, potentially including a referral to a specialized center in [place] at [facility] for a supervised fast. 4. Follow-up The patient will follow up in the clinic in approximately 10 weeks to assess her response to treatment. The patient had an opportunity to ask questions regarding treatment plan. The patient expressed understanding and agreement with the above treatment plan. The patient is aware they should contact our office by phone for worsening glucose readings or for any low blood sugars which may warrant a change in diabetes medication. Compliance is encouraged with medications and any followup testing/consults which may have been ordered. Patient was informed and verbally consented to the use of an ambient scribe for clinic note documentation during this visit. Discussion Notes I explained to the patient that I believe she is experiencing post-bariatric hypoglycemia, where her blood sugar spikes after eating carbohydrates and then crashes, which is a known complication years after her type of surgery. I discussed a multi-faceted treatment plan, starting with a referral to our interline clerk to focus on a diet with small, frequent, low-carbohydrate, high-protein meals. I also prescribed Acarbose 25 mg to be taken before meals to help prevent the blood sugar spikes, noting that while it is used off-label for this condition, it is an inexpensive and often effective option. I informed her that a common side effect of Acarbose is gas and flatulence. To ensure no other medical issues are contributing, I have ordered a morning cortisol blood test to check her adrenal function. I explained that if the current plan does not resolve her symptoms, or if new, concerning symptoms develop, further steps would be needed. In that scenario, I discussed the possibility of a referral to a specialized center in [place] for more advanced testing, such as a supervised fast, to rule out a rare insulin-producing tumor, although I emphasized that her current symptom pattern does not suggest this. We scheduled a follow-up visit in 10 weeks to review her progress. I specifically outlined red flag symptoms, such as passing out, having a seizure, or developing low blood sugar in the middle of the night without a preceding high, which would require her to contact us for an earlier appointment. Patient Instructions - Start taking Acarbose 25 mg. - Take one pill about 15 minutes before you eat a meal. - Only take this pill if you are going to eat; do not take it if you skip a meal. - This medication may cause gas. - Get a blood test done in the morning to check your cortisol level. - An appointment will be made for you to see the interline clerk, Indy, to discuss a diet with smaller, more frequent meals that are low in carbohydrates (like sugar, rice, fruit) and higher in protein. - Continue to wear your blood sugar sensor to see how the diet and new medication affect your levels. - Keep glucose tablets with you at all times, especially when driving, to treat low blood sugar. - If you feel your sugar dropping while driving, trap puller to a safe location. - Your follow-up appointment is in about 10 weeks. - Call the office sooner if you pass out, have a seizure, or start waking up in the middle of the night (around 2 or 3 AM) with low blood sugar. Take 15 carb carbohydrate grams to treat a low sugar (3-4 glucose tablets, half a glass of juice or 15 carbohydrate grams of soft candy such as gummie snacks). Recheck your sugar in 15 minutes and re-treat again with 15 carbohydrate grams if low or still with symptoms. Do not drive a car or operate machinery if you do not know what your blood sugar is, if it is low or in excess of 300. Orders: Orders Cortisol Random Today E16.2 - Hypoglycemia, unspecified Referrals Nutrition/Dietitian Referral E16.2 - Hypoglycemia, unspecified Medications: New acarbose 25 mg PO TID 90 tabs 5RF Coding Level of Care Code New Pt Level 4 (36631) Add On Problem Visit Only Diagnoses Hypoglycemia E16.2
[2025-10-05 15:14] VITALS: BP 140/82; PULSE 66; O2SAT 97; BMI 30.1
--- OUTSIDE RECORDS SUMMARY | 2025-10-05 18:33 | XMS_ITS | Patient Health Record ---
Author Organization [facility] Address [address] [address] Care Team Providers Care Row Boss Name Role Phone Kiana Hillman MD Primary Care Provider Unavailable Zacarias Mayorga Unavailable [phone] Reason For Referral No Information Medications Medication SIG (Take, Route, Frequency, Duration) Notes Start Date End Date Status metFORMIN HCl 500 MG 1 tablet with meals Orally Twice a day Active Vitamin D (Ergocalciferol) 85775 UNIT 1 capsule Orally Active traZODone HCl [...] due to varicose veins of left leg ([id number]) Varicose veins of left lower extremities with pain (I83.812) Active confirmed Plan Of Treatment No Information Insurance Providers Payer Name Payer Address Payer Phone Subscriber Number Group Number Insured Name Patient Relationship to Insured Coverage Start Date Coverage End Date Medicaid [address] [place] [address] [id number] Linnette Dunne Self - patient is the insured Medical (General) History Medical History History ICD Code 1. Varicose Veins 2. Lupus; lab diagnosed 3. Claudication 4. Hypertension 5. Asthma 6. Gastro_Esophageal Reflux Disease 7. Non Smoker
== END 2025-10-05 15:48 | disposition home or self-care (01) ==
LOC: HO.ENCR 15:02
PROVIDERS: PCP Internal Medicine; Visit Provider Internal Medicine Endocrinology, Diabetes & Metabolism
DX: E16.2 Hypoglycemia, unspecified (principal)
CPT/HCPCS: 99204

== ENCOUNTER → 2025-10-05 15:01 | Outpatient (BNVA) | payer OTHER, SELFPAY | PROVIDERS: PCP Internal Medicine; Visit Provider Internal Medicine Endocrinology, Diabetes & Metabolism | DX: E16.2 Hypoglycemia, unspecified (principal); Z98.84 Bariatric surgery status | CPT/HCPCS: 99202 ==